=== PATIENT | male | born 1955 | race Caucasian/White ===

== ENCOUNTER 2021-03-11 15:07 | Emergency (ER) | payer MEDICARE, OTHER ==
[~2021-03-11] VITALS: Ht 182 cm; Wt 113.3 kg
[~2021-03-11 15:07] MED LIST: ASP325T PO
[2021-03-11 15:12] VITALS: BP 148/97
[2021-03-11 15:34] LABS: BASOPHILS % (AUTO) 0 % (0-10); EOSINOPHILS # (AUTO) 0.2 10^3/uL (0.0-0.3); EOSINOPHILS % (AUTO) 3 % (0-10); HEMATOCRIT 53 % (40-54); HEMOGLOBIN 17.6 g/dL (13.3-17.7); LYMPHOCYTES # (AUTO) 2.2 10^3/uL (1.0-4.0); LYMPHOCYTES % (AUTO) 33 % (12-44); MEAN CORPUSCULAR HEMOGLOBIN 33 pg (25-34); MEAN CORPUSCULAR HGB CONC 34 g/dL (32-36); MEAN CORPUSCULAR VOLUME 99 fL (80-99); MEAN PLATELET VOLUME 11.2 fL (9.0-12.2); MONOCYTES # (AUTO) 0.4 10^3/uL (0.0-1.0); MONOCYTES % (AUTO) 6 % (0-12); NEUTROPHILS # (AUTO) 3.9 10^3/uL (1.8-7.8); NEUTROPHILS % (AUTO) 58 % (42-75); PLATELET COUNT 166 10^3/uL (130-400); WHITE BLOOD COUNT 6.7 10^3/uL (4.3-11.0)
[2021-03-11 15:38] LABS: ALBUMIN 4.1 GM/DL (3.2-4.5); CHLORIDE 106 MMOL/L (98-107); POTASSIUM 4.2 MMOL/L (3.6-5.0); SODIUM 140 MMOL/L (135-145)
[2021-03-11 15:39] LABS: CALCIUM 8.7 MG/DL (8.5-10.1)
[2021-03-11 15:40] LABS: FIBRIN DEGRADATION PRODUCTS 0.29 UG/ML (0.00-0.49); GLUCOSE 157 MG/DL (70-105); PROTHROMBIN TIME PATIENT 13.6 SEC (12.2-14.7); TOTAL PROTEIN 7.4 GM/DL (6.4-8.2)
[2021-03-11 15:41] LABS: CARBON DIOXIDE 19 MMOL/L (21-32)
[2021-03-11 15:42] LABS: BILIRUBIN,TOTAL 0.4 MG/DL (0.1-1.0)
--- NOTE | 2021-03-11 15:43 | ED Psychosocial ---
General Chief Complaint: Substance Abuse Stated Complaint: STROKE Nursing Triage Note: PT PRESENTS TO ED VIA EMS FROM HOME WITH COMPLAINTS OF L LEG WEAKNESS X 3 DAYS AND DRINKING ETOH DAILY. PT REPORTS "I HAVE BEEN DRINKING ALL DAY." Source: patient, EMS Exam Limitations: no limitations History of Present Illness Date Seen by Provider: Mar 11, 2021 Time Seen by Provider: 15:10 Initial Comments This is 66-year-old male presents to the emergency room via EMS due to left- sided weakness and intoxication. It is unclear who activated EMS. Patient asserts that his left-sided weakness has been there since a stroke over 2 years ago. He ambulates with a cane. He does appear intoxicated but he is able to ambulate. He is alert and oriented and states he was brought here against his wishes and he wishes to leave immediately. He states that he is traveling and passing through the area. He is staying at a motel. Allergies and Home Medications Allergies Coded Allergies: Penicillins (Verified Allergy, Unknown, 10/17/13) morphine (Verified Allergy, Unknown, 10/17/13) Patient Home Medication List Home Medication List Reviewed: Yes Review of Systems Constitutional: see HPI EENTM: no symptoms reported Respiratory: no symptoms reported Cardiovascular: no symptoms reported Gastrointestinal: no symptoms reported Genitourinary: no symptoms reported Musculoskeletal: no symptoms reported Skin: no symptoms reported Psychiatric/Neurological: See HPI Past Ajtrajk-Zcrjtv-Klhcdy Hx Patient Social History Tobacco Use?: Yes Tobacco type used: Cigarettes Smoking Status: Current Everyday Smoker Substance use?: No Alcohol Use?: Yes Alcohol type: Other Alcohol Frequency: Daily Pt feels they are or have been: No Immunizations Up To Date Tetanus Booster (TDap): Less than 5yrs PED Vaccines UTD: No Past Medical History Surgeries: Yes Orthopedic Respiratory: Yes Asthma Cardiac: No Neurological: Yes Stroke Genitourinary: No Gastrointestinal: Yes Pancreatitis, Gall Bladder Disease Musculoskeletal: Yes Back Injury Endocrine: No HEENT: No Cancer: No Psychosocial: No Adverse Reaction/Blood Tranf: No Family Medical History History of - respiratory disease 03 FATHER (EMPHYSEMIA) No Pertinent Family Hx, GI Disease Physical Exam Vital Signs - First Documented 03/11/21 15:12 Temp 36.0 Pulse 98 Resp 18 B/P (MAP) 148/97 (114) Pulse Ox 95 Capillary Refill : Less Than 3 Seconds Height, Weight, BMI Height: 6'1.00" Weight: 211lbs. 0.5oz. 95.874943md; 34.00 BMI Method:Stated General Appearance: WD/WN, no apparent distress HEENT: PERRL/EOMI, normal ENT inspection Neck: normal inspection Respiratory: no respiratory distress, no accessory muscle use Cardiovascular: regular rate, rhythm, no edema Extremities: normal inspection Neurologic/Psychiatric: other (Moderate left-sided weakness both extremities. Intoxicated) Skin: normal color, warm/dry Progress/Results/Core Measures Results/Orders Lab Results Laboratory Tests Test 03/11/21 15:20 Range/Units White Blood Count 6.7 4.3-11.0 10^3/uL Red Blood Count 5.31 4.30-5.52 10^6/uL Hemoglobin 17.6 13.3-17.7 g/dL Hematocrit 53 40-54 % Mean Corpuscular Volume 99 80-99 fL Mean Corpuscular Hemoglobin 33 25-34 pg Mean Corpuscular Hemoglobin Concent 34 32-36 g/dL Red Cell Distribution Width 15.3 H 10.0-14.5 % Platelet Count 166 130-400 10^3/uL Mean Platelet Volume 11.2 9.0-12.2 fL Immature Granulocyte % (Auto) 0 % Neutrophils (%) (Auto) 58 42-75 % Lymphocytes (%) (Auto) 33 12-44 % Monocytes (%) (Auto) 6 0-12 % Eosinophils (%) (Auto) 3 0-10 % Basophils (%) (Auto) 0 0-10 % Neutrophils # (Auto) 3.9 1.8-7.8 10^3/uL Lymphocytes # (Auto) 2.2 1.0-4.0 10^3/uL Monocytes # (Auto) 0.4 0.0-1.0 10^3/uL Eosinophils # (Auto) 0.2 0.0-0.3 10^3/uL Basophils # (Auto) 0.0 0.0-0.1 10^3/uL Immature Granulocyte # (Auto) 0.0 0.0-0.1 10^3/uL Prothrombin Time 13.6 12.2-14.7 SEC INR Comment 1.0 0.8-1.4 Activated Partial Thromboplast Time 27 24-35 SEC D-Dimer 0.29 0.00-0.49 UG/ML Sodium Level 140 135-145 MMOL/L Potassium Level 4.2 3.6-5.0 MMOL/L Chloride Level 106 98-107 MMOL/L Carbon Dioxide Level 19 L 21-32 MMOL/L Anion Gap 15 H 5-14 MMOL/L Blood Urea Nitrogen 12 7-18 MG/DL Creatinine 0.81 0.60-1.30 MG/DL Estimat Glomerular Filtration Rate 96 BUN/Creatinine Ratio 15 Glucose Level 157 H 70-105 MG/DL Calcium Level 8.7 8.5-10.1 MG/DL Corrected Calcium 8.6 8.5-10.1 MG/DL Total Bilirubin 0.4 0.1-1.0 MG/DL Aspartate Amino Transf (AST/SGOT) 29 5-34 U/L Alanine Aminotransferase (ALT/SGPT) 32 0-55 U/L Alkaline Phosphatase 62 40-136 U/L Troponin I < 0.028 <0.028 NG/ML Total Protein 7.4 6.4-8.2 GM/DL Albumin 4.1 3.2-4.5 GM/DL Serum Alcohol 304 *H <10 MG/DL Vital Signs/I&O 03/11/21 15:12 Temp 36.0 Pulse 98 Resp 18 B/P (MAP) 148/97 (114) Pulse Ox 95 Blood Pressure Mean: 114 Progress Progress Note : Progress Note Patient refused imaging. He demanded to leave AGAINST MEDICAL ADVICE. When he could not find an immediate ride, he elected to walk. He did walk independently out of the emergency room. He asserts that he does not have any new acute symptoms does not want to be evaluated any further. Departure Impression Primary Impression: Alcohol abuse Additional Impressions: Left-sided weakness Left against medical advice Disposition: 07 AGAINST MEDICAL ADVICE Condition: Against Medical Advice Departure-Patient Inst. Referrals: TIANNA GRANADOS DO (PCP) Primary Care Physician Patient Instructions: ALCOHOL AND SUBSTANCE ABUSE SALLY SHEIKH MD Mar 11, 2021 15:42
[2021-03-11 15:44] LABS: ALKALINE PHOSPHATASE 62 U/L (40-136); CREATININE SERUM 0.81 MG/DL (0.60-1.30); GFR ESTIMATED 96
[2021-03-11 15:45] LABS: BUN/CREATININE RATIO 15
[2021-03-11 15:47] LABS: ALANINE AMINOTRANSFERASE 32 U/L (0-55)
== END 2021-03-11 15:40 | disposition left against medical advice (07) ==
LOC: EDUNIT# 15:07 → ER 15:09
DX: F10.129 Alcohol abuse with intoxication, unspecified (principal); R53.1 Weakness; J45.909 Unspecified asthma, uncomplicated; Z86.73 Personal history of transient ischemic attack (TIA), and cerebral infarction without residual deficits
CPT/HCPCS: 80053; 84484; 85025; 85379; 85610; 85730; 93041; 99283; G0480; 36415; 80320; 93005

== ENCOUNTER 2021-03-11 20:06 | Emergency (ER) | payer MEDICARE ==
[2021-03-11 20:12] VITALS: BP 168/89
--- NOTE | 2021-03-11 20:22 | ED General ---
General Chief Complaint: Trauma-Non Activation Stated Complaint: FELL Source of Information: Patient Exam Limitations: No Limitations (TITUS SNOWDEN APRN) History of Present Illness Date Seen by Provider: Mar 11, 2021 Time Seen by Provider: 20:20 Initial Comments To your by EMS with reports that he fell outside of [employer] store here in [place]. He was here earlier today and left shortly after arrival. He has been drinking quite a bit of [place] deluxe today. Timing/Duration: 1-2 Days Severity: Moderate Associated Systoms: Denies Symptoms (TITUS SNOWDEN APRN) Allergies and Home Medications Allergies Coded Allergies: Penicillins (Verified Allergy, Unknown, 10/17/13) morphine (Verified Allergy, Unknown, 10/17/13) Patient Home Medication List Home Medication List Reviewed: Yes (TITUS SNOWDEN APRN) Review of Systems Review of Systems Constitutional: see HPI EENTM: see HPI Respiratory: no symptoms reported Cardiovascular: no symptoms reported Genitourinary: no symptoms reported Musculoskeletal: no symptoms reported Skin: no symptoms reported Psychiatric/Neurological: No Symptoms Reported Hematologic/Lymphatic: No Symptoms Reported Immunological/Allergic: no symptoms reported (TITUS SNOWDEN APRN) Past Pvreisz-Shcbny-Hebedi Hx Immunizations Up To Date Tetanus Booster (TDap): Less than 5yrs PED Vaccines UTD: No (TITUS SNOWDEN APRN) Past Medical History Asthma Pancreatitis, Gall Bladder Disease Back Injury Adverse Reaction/Blood Tranf: No (TITUS SNOWDEN APRN) Family Medical History History of - respiratory disease 03 FATHER (EMPHYSEMIA) No Pertinent Family Hx, GI Disease (TITUS SNOWDEN APRN) Physical Exam Vital Signs Vital Signs - First Documented 03/11/21 20:12 Temp 37.0 Pulse 101 Resp 16 B/P (MAP) 168/89 (115) Pulse Ox 93 O2 Delivery Room Air (SALLY SHEIKH MD) Vital Signs Capillary Refill : (TITUS SNOWDEN APRN) Height, Weight, BMI Height: 6'1.00" Weight: 211lbs. 0.5oz. 95.483830of; 34.00 BMI Method:Stated General Appearance: No Apparent Distress, WD/WN, Other (Alert. States "I want to go home". States he lives with his sister here in [place]. 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".) Eyes: Bilateral Eye Normal Inspection, Bilateral Eye PERRL HEENT: PERRL/EOMI, TMs Normal, Other (abrasino to tip of nose) Neck: Full Range of Motion, Normal Inspection Respiratory: No Accessory Muscle Use, No Respiratory Distress Extremity: Normal Capillary Refill, Normal Inspection Neurologic/Psychiatric: Alert (TITUS SNOWDEN APRN) Progress/Results/Core Measures Suspected Sepsis SIRS Temperature: Pulse: Respiratory Rate: Blood Pressure / Mean: (TITUS SNOWDEN APRN) Results/Orders Vital Signs/I&O 03/11/21 20:12 Temp 37.0 Pulse 101 Resp 16 B/P (MAP) 168/89 (115) Pulse Ox 93 O2 Delivery Room Air 03/12/21 00:00 Intake Total 300 ml Balance 300 ml (SALLY SHEIKH MD) Vital Signs/I&O Capillary Refill : (TITUS SNOWDEN APRN) Departure Impression Primary Impression: Alcohol abuse Disposition: 01 HOME, SELF-CARE Condition: Stable Departure-Patient Inst. Decision time for Depature: 20:45 (TITUS SNOWDEN APRN) Referrals: TIANNA GRANADOS DO (PCP/Family) Primary Care Physician ATTENDING PHYSICIAN NOTE: I was physically present as attending physician in the emergency department during the care of this patient, but I was not directly involved in the decision making or delivery of care for this patient. (SALLY SHEIKH MD) TITUS SNOWDEN APRN Mar 11, 2021 20:22 SALLY SHEIKH MD Mar 12, 2021 11:54
--- NOTE | 2021-03-11 21:08 | Diagnostic Imaging Report ---
PROCEDURE: CT head, face and cervical spine without contrast. TECHNIQUE: Multiple contiguous axial images were obtained through the head, neck, and facial bones without the use of intravenous contrast. Sagittal and coronal reformations through the cervical spine and facial bones were also performed. Auto Exposure Controls were utilized during the CT exam to meet ALARA standards for radiation dose reduction. INDICATION: Fall with head and facial pain. COMPARISON: None available. FINDINGS: CT head: No intracranial hyperdense hemorrhage or space-occupying mass. No hydrocephalus or midline shift. Foley-white matter differentiation is preserved. Basilar cisterns are widely patent. No acute skull fracture. Mucosal thickening in bilateral frontal sinuses and anterior ethmoid air cells. Other paranasal sinuses are clear. Mastoid air cells are clear. CT face: No acute fracture of the nasal bones or osseous nasal septum. Age-indeterminate nondisplaced fracture of the anterior nasal spine. No fracture of the orbits. Zygomatic arches and maxillary sinus riojas are intact. The pterygoid plates are also intact. No fracture of the mandible. The temporomandibular joints are in normal alignment. No globe rupture or traumatic lens dislocation. CT cervical spine: No acute fracture or traumatic malalignment in the cervical spine. The upper thoracic spine is not well interrogated due to beam hardening artifact associated with scan through patient's shoulders. No retropharyngeal fluid collection. Airways widely patent. Thyroid is normal. No cervical lymphadenopathy. IMPRESSION: 1. No acute intracranial hemorrhage or skull fracture. 2. Age-indeterminate fracture in the anterior nasal spine. Otherwise, no fracture in the mid face or mandible. 3. No acute fracture or traumatic malalignment in the cervical spine. Dictated by: Dictated on workstation # [id number]
== END 2021-03-11 21:02 | disposition left against medical advice (07) ==
LOC: EDUNIT# 20:06 → ER 20:11
DX: S00.31XA Abrasion of nose, initial encounter (principal); F10.10 Alcohol abuse, uncomplicated; J45.909 Unspecified asthma, uncomplicated; W17.89XA Other fall from one level to another, initial encounter; Y92.512 Supermarket, store or market as the place of occurrence of the external cause
CPT/HCPCS: 70450; 70486; 72125

== ENCOUNTER 2021-03-13 08:01 | Inpatient (IN) | payer MEDICARE ==
[~2021-03-13] VITALS: Ht 188 cm; Wt 104.0 kg
[2021-03-13] MEDS ORDERED: ONDANSETRON 4 MG/2 ML (SDV) Z0FRAN ONE (08:14)
[2021-03-13] MEDS ORDERED: ONDANSETRON 4 MG/2 ML (SDV) Z0FRAN IVP ONE (08:15)
[2021-03-13 08:17] LABS: BASOPHILS % (AUTO) 0 % (0-10); EOSINOPHILS # (AUTO) 0.1 10^3/uL (0.0-0.3); EOSINOPHILS % (AUTO) 1 % (0-10); HEMATOCRIT 50 % (40-54); HEMOGLOBIN 16.9 g/dL (13.3-17.7); LYMPHOCYTES # (AUTO) 1.1 10^3/uL (1.0-4.0); LYMPHOCYTES % (AUTO) 15 % (12-44); MEAN CORPUSCULAR HEMOGLOBIN 33 pg (25-34); MEAN CORPUSCULAR HGB CONC 34 g/dL (32-36); MEAN CORPUSCULAR VOLUME 99 fL (80-99); MEAN PLATELET VOLUME 11.6 fL (9.0-12.2); MONOCYTES # (AUTO) 0.5 10^3/uL (0.0-1.0); MONOCYTES % (AUTO) 7 % (0-12); NEUTROPHILS # (AUTO) 5.4 10^3/uL (1.8-7.8); NEUTROPHILS % (AUTO) 76 % (42-75); PLATELET COUNT 147 10^3/uL (130-400); WHITE BLOOD COUNT 7.2 10^3/uL (4.3-11.0)
--- NOTE | 2021-03-13 08:26 | ED Fall/Injury ---
General Chief Complaint: Trauma-Non Activation Stated Complaint: FALL Nursing Triage Note: PT BROUGHT IN BY [facility] FROM [place] WITH COMPLAINT OF FALL AND CP. PT IS AN ALCOHOLIC AND DRANK THIS MORNING AT 3AM. FELL THIS MORNING AND HIT HEAD. Source: patient Exam Limitations: no limitations History of Present Illness Date Seen by Provider: Mar 13, 2021 Time Seen by Provider: 08:01 Initial Comments This 66-year-old man presents to the emergency room via [facility] after having a fall at a local hotel. He has been seen twice in this emergency room on the same day earlier this week for similar complaints. He has been intoxicated and not cooperative with care and evaluation on the prior visits. He appears intoxicated at this time as well. He arrives in c-collar. He has an abrasion over his nose and some apparent swelling in the right upper eyelid region. He also complains of chest pain that worsens with inspiration and palpation and abdominal pain with palpation. He is alert and answering questions. GCS is 13. He has chronic left-sided deficits of the arm and leg due to prior stroke. Patient states "I just want to " and wants to "get out of everyone's hair". He denies ana maria suicidal ideology or intent. Patient also states "I broke my right hand" when he fell. He does have swelling noted of the right hand. Allergies and Home Medications Allergies Coded Allergies: Penicillins (Verified Allergy, Unknown, 10/17/13) morphine (Verified Allergy, Unknown, 10/17/13) Patient Home Medication List Home Medication List Reviewed: Yes Aspirin (Aspirin EC) 81 Mg Tablet.dr, 81 MG PO DAILY, (Reported) Entered as Reported by: AURORA GUAMAN on 03/15/21 4459 Last Action: Reviewed Review of Systems Review of Systems Constitutional: see HPI Eyes: See HPI Ears, Nose, Mouth, Throat: see HPI Respiratory: see HPI Cardiovascular: see HPI Gastrointestinal: see HPI Genitourinary: no symptoms reported Musculoskeletal: see HPI Skin: see HPI Psychiatric/Neurological: See HPI Past Rqakwjz-Amqumt-Awnoao Hx Patient Social History Tobacco Use?: Yes Substance use?: No Alcohol Use?: Yes Alcohol type: Beer Alcohol Frequency: Daily Pt feels they are or have been: No Immunizations Up To Date Tetanus Booster (TDap): Less than 5yrs PED Vaccines UTD: No Past Medical History Surgeries: Yes Orthopedic (Numerous orthopedic injuries) Respiratory: Yes (History of traumatic pneumothorax) Asthma Cardiac: No Neurological: No Genitourinary: No Gastrointestinal: Yes Pancreatitis, Gall Bladder Disease Musculoskeletal: Yes Back Injury, Fractures (Numerous) Endocrine: No HEENT: No Cancer: No Psychosocial: Yes (Alcohol dependence) Adverse Reaction/Blood Tranf: No Family Medical History History of - respiratory disease 03 FATHER (EMPHYSEMIA) No Pertinent Family Hx, GI Disease Physical Exam Vital Signs Vital Signs - First Documented Capillary Refill : Less Than 3 Seconds Height, Weight, BMI Height: 6'1.00" Weight: 211lbs. 0.5oz. [id number]; 34.00 BMI Method:Stated General Appearance: WD/WN, mild distress HEENT: PERRL/EOMI, other (No dental injury. Abrasions over the nose and chin) Neck: normal inspection, other (C-collar in place) Cardiovascular: regular rate, rhythm, no edema, no murmur Respiratory: lungs clear, normal breath sounds, no respiratory distress, no accessory muscle use, other (Anterior chest tender to palpation over the sternum) Gastrointestinal: normal bowel sounds, soft; No distended; tenderness (Generalized) Extremities: no pedal edema, other (Generalized swelling and erythema of the right hand with tenderness) Neurologic/Psychiatric: alert, other (Alert and conversational but disoriented. Does not know age, month, or exact location. Chronic left deficits unchanged from prior.) Skin: normal color, warm/dry Lymphatic: other (See exam above) Fani Coma Score Best Eye Response: (3) Open to Voice Best Verbal Response: (4) Confused Conversation Best Motor Response: (6) Obeys Commands [place] Total: 13 Progress/Results/Core Measures Results/Orders Lab Results Laboratory Tests Test 03/13/21 08:06 Range/Units White Blood Count 7.2 4.3-11.0 10^3/uL Red Blood Count 5.07 4.30-5.52 10^6/uL Hemoglobin 16.9 13.3-17.7 g/dL Hematocrit 50 40-54 % Mean Corpuscular Volume 99 80-99 fL Mean Corpuscular Hemoglobin 33 25-34 pg Mean Corpuscular Hemoglobin Concent 34 32-36 g/dL Red Cell Distribution Width 15.3 H 10.0-14.5 % Platelet Count 147 130-400 10^3/uL Mean Platelet Volume 11.6 9.0-12.2 fL Immature Granulocyte % (Auto) 0 % Neutrophils (%) (Auto) 76 H 42-75 % Lymphocytes (%) (Auto) 15 12-44 % Monocytes (%) (Auto) 7 0-12 % Eosinophils (%) (Auto) 1 0-10 % Basophils (%) (Auto) 0 0-10 % Neutrophils # (Auto) 5.4 1.8-7.8 10^3/uL Lymphocytes # (Auto) 1.1 1.0-4.0 10^3/uL Monocytes # (Auto) 0.5 0.0-1.0 10^3/uL Eosinophils # (Auto) 0.1 0.0-0.3 10^3/uL Basophils # (Auto) 0.0 0.0-0.1 10^3/uL Immature Granulocyte # (Auto) 0.0 0.0-0.1 10^3/uL Prothrombin Time 13.2 12.2-14.7 SEC INR Comment 1.0 0.8-1.4 Activated Partial Thromboplast Time 25 24-35 SEC Sodium Level 138 135-145 MMOL/L Potassium Level 4.1 3.6-5.0 MMOL/L Chloride Level 101 98-107 MMOL/L Carbon Dioxide Level 16 L 21-32 MMOL/L Anion Gap 21 H 5-14 MMOL/L Blood Urea Nitrogen 11 7-18 MG/DL Creatinine 0.79 0.60-1.30 MG/DL Estimat Glomerular Filtration Rate 98 BUN/Creatinine Ratio 14 Glucose Level 100 70-105 MG/DL Calcium Level 8.4 L 8.5-10.1 MG/DL Corrected Calcium 8.3 L 8.5-10.1 MG/DL Magnesium Level 1.8 1.6-2.4 MG/DL Total Bilirubin 0.8 0.1-1.0 MG/DL Aspartate Amino Transf (AST/SGOT) 40 H 5-34 U/L Alanine Aminotransferase (ALT/SGPT) 30 0-55 U/L Alkaline Phosphatase 83 40-136 U/L Myoglobin 110.9 H 10.0-92.0 NG/ML Troponin I < 0.028 <0.028 NG/ML Total Protein 7.3 6.4-8.2 GM/DL Albumin 4.1 3.2-4.5 GM/DL Lipase 17 8-78 U/L Serum Alcohol 173 H <10 MG/DL My Orders Orders - SALLY SHEIKH MD Ct Head/Cervical Spine Wo (03/13/21 08:09) Ct Chest/Abdomen/Pelvis W (03/13/21 08:09) Alcohol (03/13/21 08:09) Cbc With Automated Diff (03/13/21 08:09) Comprehensive Metabolic Panel (03/13/21 08:09) Lipase (03/13/21 08:09) Ua Culture If Indicated (03/13/21 08:09) Magnesium (03/13/21 08:09) Chest 1 View, Ap/Pa Only (03/13/21 08:09) Ekg Tracing (03/13/21 08:09) Myoglobin Serum (03/13/21 08:09) Protime With Inr (03/13/21 08:09) Partial Thromboplastin Time (03/13/21 08:09) Monitor-Rhythm Ecg Trace Only (03/13/21 08:09) Ed Iv/Invasive Line Start (03/13/21 08:09) Troponin I (03/13/21 08:09) Ondansetron Injection (Zofran Injectio (03/13/21 08:15) Ondansetron Injection (Zofran Injectio (03/13/21 08:14) Hand, Right, 3 Views (03/13/21 08:26) Iohexol Injection (Omnipaque 350 Mg/Ml 1 (03/13/21 09:00) Received Contrast (Hold Metformin- Contr (03/13/21 09:00) Ns (Ivpb) (Sodium Chloride 0.9% Ivpb Bag (03/13/21 09:00) Promethazine Injection (Phenergan Injec (03/13/21 10:45) Lactated Ringers (Lr 1000 Ml Iv Solution (03/13/21 10:45) Lorazepam Injection (Ativan Injection) (03/13/21 11:15) Medications Given in ED Vital Signs/I&O 03/13/21 03/13/21 08:02 08:02 Pulse 96 94 Resp 13 16 B/P (MAP) 146/86 (106) 146/86 (106) Pulse Ox 96 96 O2 Delivery Room Air Room Air Blood Pressure Mean: 106 Progress Progress Note : Time: 11:35 Progress Note Patient seen and examined upon arrival. C-collar remained in place until CT scans were obtained. Patient had some brief seizure-like activity witnessed by CT techs in the CT room. They reported some generalized tremors with brief loss of responsiveness. Even with sternal rub he briefly did not respond and there was reportedly brief apnea. This episode lasted less than about a minute. CTs revealed no traumatic injuries. Patient had nausea on arrival that was treated with Zofran. After returning from CT he had refractory nausea and vomiting which was treated with Phenergan. Patient is having significant memory difficulties. Concussion is presumed. He also has started to tremor presumably from alcohol withdrawal. Ativan 1 mg was administered in the ER. Case was discussed with Dr. Lemons as trauma surgeon on-call and Dr. Olson. He will be admitted to the cardiac stepdown unit with the alcohol withdrawal protocol. Initial ECG Impression Date: Mar 13, 2021 Initial ECG Impression Time: 08:06 Initial ECG Rate: 94 Initial ECG Rhythm: Normal Sinus Initial ECG Intervals: Normal Initial ECG Impression: Normal Comment Normal sinus rhythm with no ST elevation or depression. No abnormal intervals or axis deviation. Diagnostic Imaging Diagonstic Imaging: Xray Plain Films/CT/US/NM/MRI: chest Comments NAME: AGUSTIN LOZA MED REC#: [id number] PT STATUS: REG ER : 1955 PHYSICIAN: SALLY SHEIKH MD ADMIT DATE: 03/13/21/ER Signed Date of Exam:03/13/21 CHEST 1 VIEW, AP/PA ONLY Portable chest INDICATION: Chest pain. Comparison made to a previous study from October 162013. FINDINGS: The diaphragms are flattened and there is some prominence of interstitial markings which could relate to underlying COPD. There is no focal infiltrate or consolidation. There is no effusion. There is no pneumothorax. Heart size appears appropriate without current failure. IMPRESSION: Flattened diaphragms suggesting air trapping. There is also some prominence of the interstitial markings. The findings suggest COPD. Correlation for any known smoking history appreciated. There are however no findings to suggest a new or acute superimposed cardiac pulmonary process. Dictated by: Dictated on workstation # [id number] Dict: 03/13/21916 Trans: 03/13/21 0950 [facility] [id number] Interpreted by: SWATHI FOREMAN MD Electronically signed by: SWATHI FOREMAN MD 03/13/2150 Diagonstic Imaging: CT Plain Films/CT/US/NM/MRI: chest, abdomen, pelvis Comments CT chest, abdomen, pelvis viewed by me and report reviewed. Discussed with the radiologist. See below: NAME: AGUSTIN LOZA [facility] REC#: [id number] PT STATUS: REG ER : 1955 PHYSICIAN: SALLY SHEIKH MD ADMIT DATE: 03/13/21/ER Signed Date of Exam:03/13/21 CT CHEST/ABDOMEN/PELVIS W PROCEDURE: CT chest, abdomen, and pelvis with contrast. TECHNIQUE: Multiple contiguous axial images were obtained through the chest, abdomen, and pelvis after the administration of intravenous contrast. Auto Exposure Controls were utilized during the CT exam to meet ALARA standards for radiation dose reduction. Date: March 13, 2021. Indication: 66-year-old male, fall. Chest and abdominal pain. Comparison: MRI abdomen October 22, 2013. CT abdomen pelvis October 20, 2013. Findings: There is a calcified 8 mm right lower lobe granuloma. There are mild dependent linear opacities in the right lower lobe most consistent with atelectasis. There is minimal dependent atelectasis in the left lower lobe. There is no additional focal airspace consolidation. There is no pneumothorax. There is no pleural effusion. The central airways are patent. There is no identified pulmonary embolus. The main pulmonary arteries normal in caliber. There are coronary artery calcifications. The heart is not enlarged. There is no pericardial effusion. There is no abnormally enlarged mediastinal, hilar, or axillary lymph node meeting CT size criteria for adenopathy. There is no mediastinal hematoma. There is no evidence of acute aortic injury. There are atherosclerotic calcifications. There is diffuse fatty infiltration of the liver. There is an enhancing lesion in the left lobe of the liver on delayed image 17 measuring 1.5 cm in size which is unchanged in size since prior MRI. There are additional liver lesion seen on prior MRI which are also best seen on the delayed images and are also unchanged in size. 2 additional lesions are present in the left lobe of liver measuring 3 cm in size in axial image 14 and on axial image 15 measuring 1.1 cm in size. These most likely reflect hemangiomas. There is no identified liver laceration or perihepatic fluid. The main, right, and left portal veins are patent. The gallbladder is unremarkable. There is no biliary ductal dilation. Unremarkable appearance of the pancreas. There is no evidence of an acute splenic injury. The spleen is normal in size. The adrenal glands are unremarkable. Unremarkable appearance of the renal parenchyma. The urinary collecting systems are not distended. There is no identified renal or ureteral stone. Urinary bladder is unremarkable. The intestinal tract is not distended. The appendix is unremarkable. There is no free intraperitoneal air. There is no drainable fluid collection. There is no free pelvic fluid. There is no identified abnormally enlarged lymph node in the abdomen or pelvis which meets CT size criteria for adenopathy. There are degenerative changes of the spine. There is an anchor in the right humeral head likely reflecting prior rotator cuff tendon repair. There is no identified acute fracture. There is a fat-containing lesion in the subcutaneous tissues superficial to the sternum most compatible with lipoma measuring 8.6 x 2.3 cm in size. Impression: 1. No identified acute abnormality at the level of the chest, abdomen, or pelvis. 2. Diffuse fatty infiltration of the liver. 3. Lipoma superficial to the sternum measuring 8.6 x 2.3 cm in axial dimension. 4. Enhancing lesions in the left lobe of the liver likely reflecting hemangiomas. Dictated by: Dictated on workstation # [id number] Dict: 03/13/21902 Trans: 03/13/21 1034 [facility] [id number] Interpreted by: MARTIR SOUTH MD Electronically signed by: MRATIR SOUTH MD 03/13/21 1034 Diagonstic Imaging: CT Plain Films/CT/US/NM/MRI: c-spine, head Comments NAME: AGUSTIN LOZA [facility] REC#: [id number] PT STATUS: REG ER : 1955 PHYSICIAN: SALLY SHEIKH MD ADMIT DATE: 03/13/21/ER Signed Date of Exam:03/13/21 CT HEAD/CERVICAL SPINE WO PROCEDURE: CT head and CT cervical spine without contrast. TECHNIQUE: Multiple contiguous axial images were obtained through the brain and cervical spine without the use of intravenous contrast. Sagittal and coronal reformations through the cervical spine were then performed. Auto Exposure Controls were utilized during the CT exam to meet ALARA standards for radiation dose reduction. INDICATION: Trauma. Fall. Head pain. Comparison is made with a prior study from March 112020. FINDINGS: The CT of the head demonstrates age-related global volume loss. There are no findings of acute intracranial hemorrhage. There is no evidence of an abnormal extra-axial collection. There is no intracranial mass effect or shift. There is no hydrocephalus. The basilar cisterns appear patent. The posterior fossa demonstrates no acute process. There are no findings of territorial loss of arellano-white differentiation or vasogenic edema. There is no acute calvarial fracture evident. The mastoids appear clear. The orbital contents are unremarkable. There is no fluid level evident within the paranasal sinuses. Patient's prior nasal spine fracture of the maxilla again noted. No new facial fracture is evident. Cervical spine demonstrates multilevel cervical degenerative disc disease and facet arthropathy. Alignment is unchanged from the prior exam with a degenerative anterolisthesis of C7 on T1. Craniocervical junction relationships are maintained. The facets are normally aligned. There is no facet joint or disc space widening. Background degenerative features are stable with most advanced disc space height loss at C6-C7. No acute cervical spine fracture demonstrated. Most advanced canal stenosis appears moderate at the C5-C6 and C6-C7 levels. There is also severe left C5-C6 and bilateral C6-C7 foraminal stenosis. The lung apices appear clear. The soft tissues of the neck demonstrate no acute process. There are atherosclerotic calcifications within the carotid arteries at the bifurcation. IMPRESSION: 1. Age-related global volume loss without evidence of intracranial hemorrhage or acute intracranial abnormality. 2. No calvarial or new facial fracture evident. There are no findings of a fluid level in the paranasal sinuses. 3. Stable degenerative features and alignment of the cervical spine. No findings of an acute cervical spine fracture demonstrated. Dictated by: Dictated on workstation # [id number] Dict: 03/13/2103 Trans: 03/13/21 0914 [facility] [id number] Interpreted by: SWATHI FOREMAN MD Electronically signed by: SWATHI FOREMAN MD 03/13/21 0914 Diagonstic Imaging: Xray Plain Films/CT/US/NM/MRI: hand Comments NAME: AGUSTIN LOZA [facility] REC#: [id number] PT STATUS: REG ER : 1955 PHYSICIAN: SALLY SHEIKH MD ADMIT DATE: 03/13/21/ER Signed Date of Exam:03/13/21 HAND, RIGHT, 3 VIEWS INDICATION: Hand pain. FINDINGS: There has been previous ORIF of the distal right ulna. Alignment of the hand and wrist appear appropriate. There are no findings of an acute fracture. There is no suspicious marrow replacing lesion. There are arthritic changes at the radiocarpal joint and more mild osteoarthritic changes demonstrated throughout the metacarpal phalangeal joints and interphalangeal joints. IMPRESSION: 1. Right hand and wrist arthritic changes without acute fracture or malalignment. 2. Previous ORIF of the right ulna. Dictated by: Dictated on workstation # [id number] Dict: 03/13/21917 Trans: 03/13/21 0935 [facility] [id number] Interpreted by: SWATHI FOREMAN MD Electronically signed by: SWATHI FOREMAN MD 03/13/21 0935 Departure Communication (Admissions) Time/Spoke to Admitting Phy: 11:20 Dr. Olson Time/Spoke to Consulting Phy: 11:15 Dr. Lemons Impression Primary Impression: Concussion Qualified Codes: S06.0X1A - Concussion with loss of consciousness of 30 minutes or less, initial encounter Additional Impressions: Altered mental status Qualified Codes: R41.82 - Altered mental status, unspecified Alcohol withdrawal Qualified Codes: F10.239 - Alcohol dependence with withdrawal, unspecified Fall on same level Qualified Codes: W18.30XA - Fall on same level, unspecified, initial encount er Contusion of right hand Qualified Codes: S60.221A - Contusion of right hand, initial encounter Observed seizure-like activity Disposition: ADMITTED INPATIENT Condition: Improved Admissions Decision to Admit Reason: Admit from ER (Trauma) Decision to Admit/Date: Mar 13, 2021 Time/Decision to Admit Time: 11:00 Departure-Patient Inst. Referrals: TIANNA GRANADOS DO (PCP/Family) Primary Care Physician SALLY SHEIKH MD Mar 13, 2021 08:26
[2021-03-13 08:31] LABS: ALBUMIN 4.1 GM/DL (3.2-4.5); PROTHROMBIN TIME PATIENT 13.2 SEC (12.2-14.7)
[2021-03-13 08:32] LABS: CHLORIDE 101 MMOL/L (98-107); POTASSIUM 4.1 MMOL/L (3.6-5.0); SODIUM 138 MMOL/L (135-145)
[2021-03-13 08:33] LABS: CALCIUM 8.4 MG/DL (8.5-10.1)
[2021-03-13 08:34] LABS: GLUCOSE 100 MG/DL (70-105); TOTAL PROTEIN 7.3 GM/DL (6.4-8.2)
[2021-03-13 08:35] LABS: CARBON DIOXIDE 16 MMOL/L (21-32)
[2021-03-13 08:36] LABS: BILIRUBIN,TOTAL 0.8 MG/DL (0.1-1.0)
[2021-03-13 08:37] LABS: ALKALINE PHOSPHATASE 83 U/L (40-136)
[2021-03-13 08:38] LABS: CREATININE SERUM 0.79 MG/DL (0.60-1.30); GFR ESTIMATED 98
[2021-03-13 08:39] LABS: BUN/CREATININE RATIO 14
[2021-03-13 08:40] LABS: ALANINE AMINOTRANSFERASE 30 U/L (0-55)
[2021-03-13 08:41] LABS: LIPASE 17 U/L (8-78); MAGNESIUM 1.8 MG/DL (1.6-2.4)
[2021-03-13] MEDS ORDERED: IOHEXOL 350 MG/ML 100 ML (OMNIPAQUE 350) VIAL IV ONE (09:00)
[2021-03-13] MEDS ORDERED: HOLD METFORMIN - RECEIVED CONTRAST 20 ML VIAL IV SCH (09:00)
[2021-03-13] MEDS ORDERED: NS 100 ML (IVPB) BAG IV ONE (09:00)
--- NOTE | 2021-03-13 09:12 | Diagnostic Imaging Report ---
PROCEDURE: CT head and CT cervical spine without contrast. TECHNIQUE: Multiple contiguous axial images were obtained through the brain and cervical spine without the use of intravenous contrast. Sagittal and coronal reformations through the cervical spine were then performed. Auto Exposure Controls were utilized during the CT exam to meet ALARA standards for radiation dose reduction. INDICATION: Trauma. Fall. Head pain. Comparison is made with a prior study from March 112020. FINDINGS: The CT of the head demonstrates age-related global volume loss. There are no findings of acute intracranial hemorrhage. There is no evidence of an abnormal extra-axial collection. There is no intracranial mass effect or shift. There is no hydrocephalus. The basilar cisterns appear patent. The posterior fossa demonstrates no acute process. There are no findings of territorial loss of arellano-white differentiation or vasogenic edema. There is no acute calvarial fracture evident. The mastoids appear clear. The orbital contents are unremarkable. There is no fluid level evident within the paranasal sinuses. Patient's prior nasal spine fracture of the maxilla again noted. No new facial fracture is evident. Cervical spine demonstrates multilevel cervical degenerative disc disease and facet arthropathy. Alignment is unchanged from the prior exam with a degenerative anterolisthesis of C7 on T1. Craniocervical junction relationships are maintained. The facets are normally aligned. There is no facet joint or disc space widening. Background degenerative features are stable with most advanced disc space height loss at C6-C7. No acute cervical spine fracture demonstrated. Most advanced canal stenosis appears moderate at the C5-C6 and C6-C7 levels. There is also severe left C5-C6 and bilateral C6-C7 foraminal stenosis. The lung apices appear clear. The soft tissues of the neck demonstrate no acute process. There are atherosclerotic calcifications within the carotid arteries at the bifurcation. IMPRESSION: 1. Age-related global volume loss without evidence of intracranial hemorrhage or acute intracranial abnormality. 2. No calvarial or new facial fracture evident. There are no findings of a fluid level in the paranasal sinuses. 3. Stable degenerative features and alignment of the cervical spine. No findings of an acute cervical spine fracture demonstrated. Dictated by: Dictated on workstation # [id number]
--- NOTE | 2021-03-13 09:14 | Diagnostic Imaging Report ---
PROCEDURE: CT chest, abdomen, and pelvis with contrast. TECHNIQUE: Multiple contiguous axial images were obtained through the chest, abdomen, and pelvis after the administration of intravenous contrast. Auto Exposure Controls were utilized during the CT exam to meet ALARA standards for radiation dose reduction. Date: March 13, 2021. Indication: 66-year-old male, fall. Chest and abdominal pain. Comparison: MRI abdomen October 22, 2013. CT abdomen pelvis October 20, 2013. Findings: There is a calcified 8 mm right lower lobe granuloma. There are mild dependent linear opacities in the right lower lobe most consistent with atelectasis. There is minimal dependent atelectasis in the left lower lobe. There is no additional focal airspace consolidation. There is no pneumothorax. There is no pleural effusion. The central airways are patent. There is no identified pulmonary embolus. The main pulmonary arteries normal in caliber. There are coronary artery calcifications. The heart is not enlarged. There is no pericardial effusion. There is no abnormally enlarged mediastinal, hilar, or axillary lymph node meeting CT size criteria for adenopathy. There is no mediastinal hematoma. There is no evidence of acute aortic injury. There are atherosclerotic calcifications. There is diffuse fatty infiltration of the liver. There is an enhancing lesion in the left lobe of the liver on delayed image 17 measuring 1.5 cm in size which is unchanged in size since prior MRI. There are additional liver lesion seen on prior MRI which are also best seen on the delayed images and are also unchanged in size. 2 additional lesions are present in the left lobe of liver measuring 3 cm in size in axial image 14 and on axial image 15 measuring 1.1 cm in size. These most likely reflect hemangiomas. There is no identified liver laceration or perihepatic fluid. The main, right, and left portal veins are patent. The gallbladder is unremarkable. There is no biliary ductal dilation. Unremarkable appearance of the pancreas. There is no evidence of an acute splenic injury. The spleen is normal in size. The adrenal glands are unremarkable. Unremarkable appearance of the renal parenchyma. The urinary collecting systems are not distended. There is no identified renal or ureteral stone. Urinary bladder is unremarkable. The intestinal tract is not distended. The appendix is unremarkable. There is no free intraperitoneal air. There is no drainable fluid collection. There is no free pelvic fluid. There is no identified abnormally enlarged lymph node in the abdomen or pelvis which meets CT size criteria for adenopathy. There are degenerative changes of the spine. There is an anchor in the right humeral head likely reflecting prior rotator cuff tendon repair. There is no identified acute fracture. There is a fat-containing lesion in the subcutaneous tissues superficial to the sternum most compatible with lipoma measuring 8.6 x 2.3 cm in size. Impression: 1. No identified acute abnormality at the level of the chest, abdomen, or pelvis. 2. Diffuse fatty infiltration of the liver. 3. Lipoma superficial to the sternum measuring 8.6 x 2.3 cm in axial dimension. 4. Enhancing lesions in the left lobe of the liver likely reflecting hemangiomas. Dictated by: Dictated on workstation # [id number]
--- NOTE | 2021-03-13 09:34 | Diagnostic Imaging Report ---
INDICATION: Hand pain. FINDINGS: There has been previous ORIF of the distal right ulna. Alignment of the hand and wrist appear appropriate. There are no findings of an acute fracture. There is no suspicious marrow replacing lesion. There are arthritic changes at the radiocarpal joint and more mild osteoarthritic changes demonstrated throughout the metacarpal phalangeal joints and interphalangeal joints. IMPRESSION: 1. Right hand and wrist arthritic changes without acute fracture or malalignment. 2. Previous ORIF of the right ulna. Dictated by: Dictated on workstation # [id number]
--- NOTE | 2021-03-13 09:38 | Diagnostic Imaging Report ---
Portable chest INDICATION: Chest pain. Comparison made to a previous study from October 162013. FINDINGS: The diaphragms are flattened and there is some prominence of interstitial markings which could relate to underlying COPD. There is no focal infiltrate or consolidation. There is no effusion. There is no pneumothorax. Heart size appears appropriate without current failure. IMPRESSION: Flattened diaphragms suggesting air trapping. There is also some prominence of the interstitial markings. The findings suggest COPD. Correlation for any known smoking history appreciated. There are however no findings to suggest a new or acute superimposed cardiac pulmonary process. Dictated by: Dictated on workstation # [id number]
[2021-03-13] MEDS ORDERED: PROMETHAZINE INJ 25 MG/ML (PHENERGAN) AMP IVP ONE (10:45)
[2021-03-13] MEDS ORDERED: LACTATED RINGERS 1,000 ML IV ONE (10:45)
[2021-03-13] MEDS ORDERED: LORazepam INJ 2 MG/ML (ATIVAN) VIAL IVP ONE (11:15)
[2021-03-13] MEDS ORDERED: LORazepam INJ 2 MG/ML (ATIVAN) VIAL IM/IV PRN (15:00)
[2021-03-13] MEDS ORDERED: ANTACID SUSP 30 ML UDC (MYLANTA) PO PRN (15:00)
[2021-03-13] MEDS: THIAMINE INJECTION 100 MG, FOLIC ACID INJECTION 1 MG, VITAMIN MULTI INJECTION 10 ML, MA... IV SCH ×5 (15:19)
--- NOTE | 2021-03-13 15:34 | Tele-ICU Progress Note ---
Progress Note He is a 66-year-old male with past medical history of alcohol abuse apparently drank alcohol about 3 AM today and subsequently fell and hit his head came to the hospital with the complaint of headache. His alcohol level is found to be 173. He is evaluated with the CT of the head neck chest abdomen and pelvis which are negative for any acute abnormalities. Currently admitted to the intensive care unit with [facility] protocol. He is likely to undergo alcohol withdrawal syndrome. . Telemetry ICU is not consulted. I have made a video visit and discussed with the [employer] and at this time she does not need any request from the telemetry ICU physician but in case she needs she will reach out to me. Focused Exam Height, Weight, BMI Height: 6'1.00" Weight: 211lbs. 0.5oz. [id number]; 29.34 BMI Method:Stated [employer] [place] MD Mar 13, 2021 15:34
[2021-03-13] MEDS: LORazepam 1 MG (ATIVAN) TAB PO PRN ×3 (15:50→18:52)
[2021-03-13] MEDS: LACTATED RINGERS 1,000 ML IV SCH ×2 (15:51→21:23)
[2021-03-13] MEDS: IBUPROFEN 600 MG (MOTRIN) TAB PO PRN (18:05)
[2021-03-13] MEDS: ONDANSETRON 4 MG/2 ML (SDV) Z0FRAN IV PRN (18:58)
[2021-03-13] MEDS ORDERED: ACETAMINOPHEN 500 MG TAB (TYLENOL) ONE (21:20)
--- NOTE | 2021-03-14 01:26 | CONSULTATION REPORT ---
DATE OF SERVICE: 03/13/2021 ATTENDING PRIMARY CARE PHYSICIAN: Leroy Avendano DO HISTORY OF PRESENT ILLNESS: The patient is a 66-year-old male with history of alcoholism. He has been staying at a local hotel. He was brought to the Emergency Department by EMS after a same level fall. He has been seen twice in the emergency room on the same day earlier this week for similar complaints. Every time he has been intoxicated and uncooperative for evaluation. He again is intoxicated. He states that everything hurts; however, no elicited pain upon any type of palpation. He does have a left sided deficits due to prior stroke. His Fani coma scale is 13. CT scan of the head, neck, chest, abdomen and pelvis were performed, which did not show any deficits. During the CT scan, he did have movements of his upper extremity, which may have indicated some level of secondary effects from alcoholism; however, seizure cannot be ruled out. A CT scan of the head did not show any abnormalities. He was admitted for detoxification. PAST MEDICAL HISTORY: Alcoholism, degenerative joint disease, history of pancreatitis, asthma. PAST SURGICAL HISTORY: Orthopedic injuries that did not require surgery, cholecystectomy. ALLERGIES: PENICILLIN AND MORPHINE. MEDICATIONS: None. SOCIAL HISTORY: Positive for alcoholism. Positive for smoke. FAMILY HISTORY: Noncontributory. VITAL SIGNS: Stable. Blood pressure 120/71, pulse 75, respirations 19. Pulse ox 90% on 2 liters nasal cannula. REVIEW OF SYSTEMS: Well-nourished male, currently in no acute distress. He is not experiencing any shortness of breath and difficulty breathing. No chest pain, palpitations, diaphoresis. No nausea, vomiting, no diarrhea or constipation. No fever, chills, no recent inadvertent weight loss. All other review of systems negative. No visual changes. No focal deficits. PHYSICAL EXAMINATION: CHEST: Few scattered rales bilaterally. HEART: Regular, no murmurs. EXTREMITIES: No lower extremity edema, negative Homans sign. HEENT: No scleral icterus. NECK: No cervical lymphadenopathy. ABDOMEN: Soft, nontender, nondistended. SKIN: Warm, dry. NEUROLOGIC: Awake, alert, does answer most questions appropriately, moves all four extremities purposefully upon command. LABORATORY DATA: WBC 7.2, hemoglobin 6.9, hematocrit 50, platelets 147. BUN 11, creatinine 0.79. Alcohol 173. ASSESSMENT AND PLAN: A 66-year-old male with same level fall with a possible concussion. However, most likely due to alcohol intoxication. He will be admitted for detoxification with IV fluids, benzodiazepines as needed and monitoring for delirium tremens. As of now, there does not appear to be any injuries related to his fall. Job ID: [id number] DocumentID: [id number] Dictated Date: 03/13/2021 22:59:03 [place] Date: 03/14/2021 01:26:22 Dictated By: JENSEN HARPER MD
[2021-03-14] MEDS: IBUPROFEN 600 MG (MOTRIN) TAB PO PRN (04:44)
[2021-03-14] MEDS: LORazepam 1 MG (ATIVAN) TAB PO PRN ×2 (04:44→10:43)
[2021-03-14] MEDS: LACTATED RINGERS 1,000 ML IV SCH ×3 (04:49→23:10)
[2021-03-14] MEDS: ONDANSETRON 4 MG/2 ML (SDV) Z0FRAN IV PRN ×2 (07:21→19:35)
[2021-03-14] MEDS: ACETAMINOPHEN 500 MG TAB (TYLENOL) PO PRN (07:21)
[2021-03-14 07:44] LABS: POTASSIUM 3.8 MMOL/L (3.6-5.0)
[2021-03-14 07:46] LABS: CALCIUM 8.4 MG/DL (8.5-10.1)
[2021-03-14 07:50] LABS: CREATININE SERUM 0.8 MG/DL (0.60-1.30); PHOSPHORUS 2.2 MG/DL (2.3-4.7)
[2021-03-14 07:53] LABS: MAGNESIUM 2.1 MG/DL (1.6-2.4)
--- NOTE | 2021-03-14 09:15 | History & Physical-Hospitalist ---
History of Present Illness HPI/Chief Complaint Patient is 66-year-old male with a past medical history of alcohol abuse, stroke, and on disability for "my body is broken" who presented to the emergency department due to a fall. He is a very poor historian and states he is having memory issues and doesn't recall all of the events that led him to the hospital. He is very vague in his details as well. Apparently he was in the emergency room multiple times this week due to alcohol intoxication and falls. He left AGAINST MEDICAL ADVICE at least once. He believes to think that he was here and was found to have a hip fracture that was missed. Reviewing records that does not appear to be the case. He complains of a pounding headache. He had a CT of his head in the emergency room that was negative for any acute findings. While in CT there was concern for seizure-like activity. Patient states he remembers this entire event but is convinced it was a seizure. He denies any history of seizures. He does have longstanding alcohol use but has gone days and possibly even weeks without drinking and has never had withdrawal symptoms per his report. He states his last drink was yesterday at 3:00 in the morning. His alcohol level at 8 AM yesterday morning was 173. He complains of nausea and vomiting. Despite this he would like to advance his diet. We discussed how this would not make sense and he agrees to continue on clears for now. He states he would like to stay in the hospital for a few days and get everything figured out. I informed him that that is not the goal of being in the hospital but that we'll work on getting his gait steadier and hopefully through withdrawal safely. I believe he is currently homeless as he previously lived with his sister but stated he left as his cziodki-ab-hzi and he "did not see eye to eye." He could not tell me an address of where he lives. We discussed plan to transfer out of the ICU if he does well. He did not like this plan and would like to stay in the ICU despite not needing any ICU level of care. I informed him that this was not possible either and that he will go to the bed that is most appropriate for his medical status. He wants to know why his memory is foggy. We discussed that he has had multiple falls and likely has a concussion along with long-term alcohol use being the most likely etiology of his symptoms. He disagrees. He states he does drink like this his whole life and never had problems. He is unable to quantify how much he drinks daily for me. Source: patient Exam Limitations: clinical condition Date Seen 03/14/21 Time Seen by a Provider: 09:09 Attending Physician Celina Olson MD PCP Leroy Avendano DO Referring Physician Date of Admission Mar 13, 2021 at 11:25 Home Medications & Allergies Home Medications Reviewed patient Home Medication Reconciliation performed by pharmacy medication reconciliations light technician and/or nursing. Patients Allergies have been reviewed. Allergies Allergies Coded Allergies Penicillins (Verified Allergy, Unknown, 10/17/13) morphine (Verified Allergy, Unknown, 10/17/13) Past Ytuksxa-Fjscgi-Qljnuz Hx Patient Social History Employed/Student: unemployed (on disability6) Tobacco Use?: Yes Tobacco type used: Cigarettes Smoking Status: Current Everyday Smoker Smokeless type used: Chew Smokeless Tobacco Frequency: Current Everyday User Use of E-Cig and/or Vaping dev: No Substance use?: No Alcohol Use?: Yes Alcohol type: Hard Liquor Additional alcohol type: WHISKEY Alcohol Frequency: Daily Additional Alcohol Comments: 3-4 LARGE DRINKS PER DAY Pt feels they are or have been: No Immunizations Up To Date First/Initial COVID19 Vaccinat: 02/04/21 Second COVID19 Vaccination Loc: 02/18/21 Tetanus Booster (TDap): Unknown Hepatitis A: Yes Hepatitis B: Yes PED Vaccines UTD: No Date of Pneumonia Vaccine: Jan 06, 1971 Current Status Advance Directives: No Communicates: Verbally Primary Language: Chinese Preferred Spoken Language: Chinese Is interpretation needed?: No Implanted or Applied Medical D: Orthopedic hardware Past Medical History Surgeries: Orthopedic (Numerous orthopedic injuries) Asthma Pancreatitis, Gall Bladder Disease Back Injury, Fractures (Numerous) Adverse Reaction/Blood Tranf: No Family Medical History Reviewed Nursing Family Hx History of - respiratory disease 03 FATHER (EMPHYSEMIA) GI Disease Review of Systems Constitutional: see HPI, malaise, weakness EENTM: no symptoms reported Respiratory: cough Cardiovascular: no symptoms reported Gastrointestinal: see HPI Genitourinary: no symptoms reported Musculoskeletal: back pain, joint pain Skin: other (bruises,) Psychiatric/Neurological: Depressed, Headache; Denies Numbness, Denies Paresthesia; Pre-Existing Deficit, Seizure; Denies Tingling Physical Exam Physical Exam Vital Signs Vital Signs - First Documented Capillary Refill : Less Than 3 Seconds Height, Weight, BMI Height: 6'1.00" Weight: 211lbs. 0.5oz. 95.381875dh; 29.34 BMI Method:Stated General Appearance: No Apparent Distress, Chronically ill HEENT: PERRL/EOMI, Moist Mucous Membranes; No Scleral Icterus (L), No Scleral Icterus (R) Neck: Normal Inspection, Supple Respiratory: Chest Non Tender, Lungs Clear, No Accessory Muscle Use, No Respiratory Distress Cardiovascular: Regular Rate, Rhythm, No JVD, No Murmur Gastrointestinal: Normal Bowel Sounds, Non Tender, Soft Extremity: Normal Capillary Refill, No Calf Tenderness, No Pedal Edema Neurologic/Psychiatric: Alert, Oriented x3 (but poor recall and confusion to timing of events) Skin: Normal Color, Warm/Dry, Other (multiples abrasions and ecchymosis on legs, face, and arms consistent with falls) Results Results/Procedures Labs Laboratory Tests 03/14/21 07:24 Patient resulted labs reviewed. Imaging: Reviewed Imaging Report Imaging [facility] [place], [place] NAME: AGUSTIN LOZA [facility] REC#: [id number] PT STATUS: REG ER : 1955 PHYSICIAN: SALLY SHEIKH MD ADMIT DATE: 03/13/21/ER Signed Date of Exam:03/13/21 CHEST 1 VIEW, AP/PA ONLY Portable chest INDICATION: Chest pain. Comparison made to a previous study from October 162013. FINDINGS: The diaphragms are flattened and there is some prominence of interstitial markings which could relate to underlying COPD. There is no focal infiltrate or consolidation. There is no effusion. There is no pneumothorax. Heart size appears appropriate without current failure. IMPRESSION: Flattened diaphragms suggesting air trapping. There is also some prominence of the interstitial markings. The findings suggest COPD. Correlation for any known smoking history appreciated. There are however no findings to suggest a new or acute superimposed cardiac pulmonary process. Dictated by: Dictated on workstation # [id number] Dict: 03/13/21916 Trans: 03/13/[address] [facility] [id number] Interpreted by: SWATHI FOREMAN MD Electronically signed by: SWATHI FOREMAN MD 03/13/21 0950 [facility] [place], [place] NAME: AGUSTIN LOZA [facility] REC#: [id number] PT STATUS: REG ER : 1955 PHYSICIAN: SALLY SHEIKH MD ADMIT DATE: 03/13/21/ER Signed Date of Exam:03/13/21 CT CHEST/ABDOMEN/PELVIS W PROCEDURE: CT chest, abdomen, and pelvis with contrast. TECHNIQUE: Multiple contiguous axial images were obtained through the chest, abdomen, and pelvis after the administration of intravenous contrast. Auto Exposure Controls were utilized during the CT exam to meet ALARA standards for radiation dose reduction. Date: March 13, 2021. Indication: 66-year-old male, fall. Chest and abdominal pain. Comparison: MRI abdomen October 22, 2013. CT abdomen pelvis October 20, 2013. Findings: There is a calcified 8 mm right lower lobe granuloma. There are mild dependent linear opacities in the right lower lobe most consistent with atelectasis. There is minimal dependent atelectasis in the left lower lobe. There is no additional focal airspace consolidation. There is no pneumothorax. There is no pleural effusion. The central airways are patent. There is no identified pulmonary embolus. The main pulmonary arteries normal in caliber. There are coronary artery calcifications. The heart is not enlarged. There is no pericardial effusion. There is no abnormally enlarged mediastinal, hilar, or axillary lymph node meeting CT size criteria for adenopathy. There is no mediastinal hematoma. There is no evidence of acute aortic injury. There are atherosclerotic calcifications. There is diffuse fatty infiltration of the liver. There is an enhancing lesion in the left lobe of the liver on delayed image 17 measuring 1.5 cm in size which is unchanged in size since prior MRI. There are additional liver lesion seen on prior MRI which are also best seen on the delayed images and are also unchanged in size. 2 additional lesions are present in the left lobe of liver measuring 3 cm in size in axial image 14 and on axial image 15 measuring 1.1 cm in size. These most likely reflect hemangiomas. There is no identified liver laceration or perihepatic fluid. The main, right, and left portal veins are patent. The gallbladder is unremarkable. There is no biliary ductal dilation. Unremarkable appearance of the pancreas. There is no evidence of an acute splenic injury. The spleen is normal in size. The adrenal glands are unremarkable. Unremarkable appearance of the renal parenchyma. The urinary collecting systems are not distended. There is no identified renal or ureteral stone. Urinary bladder is unremarkable. The intestinal tract is not distended. The appendix is unremarkable. There is no free intraperitoneal air. There is no drainable fluid collection. There is no free pelvic fluid. There is no identified abnormally enlarged lymph node in the abdomen or pelvis which meets CT size criteria for adenopathy. There are degenerative changes of the spine. There is an anchor in the right humeral head likely reflecting prior rotator cuff tendon repair. There is no identified acute fracture. There is a fat-containing lesion in the subcutaneous tissues superficial to the sternum most compatible with lipoma measuring 8.6 x 2.3 cm in size. Impression: 1. No identified acute abnormality at the level of the chest, abdomen, or pelvis. 2. Diffuse fatty infiltration of the liver. 3. Lipoma superficial to the sternum measuring 8.6 x 2.3 cm in axial dimension. 4. Enhancing lesions in the left lobe of the liver likely reflecting hemangiomas. Dictated by: Dictated on workstation # [id number] Dict: 03/13/21902 Trans: 03/13/[address] [facility] [id number] Interpreted by: MARTIR SOUTH MD Electronically signed by: MARTIR SOUTH MD 03/13/21 1034 [facility] [place], [place] NAME: AGUSTIN LOZA [facility] REC#: [id number] PT STATUS: REG ER : 1955 PHYSICIAN: SALLY SHEIKH MD ADMIT DATE: 03/13/21/ER Signed Date of Exam:03/13/21 CT HEAD/CERVICAL SPINE WO PROCEDURE: CT head and CT cervical spine without contrast. TECHNIQUE: Multiple contiguous axial images were obtained through the brain and cervical spine without the use of intravenous contrast. Sagittal and coronal reformations through the cervical spine were then performed. Auto Exposure Controls were utilized during the CT exam to meet ALARA standards for radiation dose reduction. INDICATION: Trauma. Fall. Head pain. Comparison is made with a prior study from March 112020. FINDINGS: The CT of the head demonstrates age-related global volume loss. There are no findings of acute intracranial hemorrhage. There is no evidence of an abnormal extra-axial collection. There is no intracranial mass effect or shift. There is no hydrocephalus. The basilar cisterns appear patent. The posterior fossa demonstrates no acute process. There are no findings of territorial loss of arellano-white differentiation or vasogenic edema. There is no acute calvarial fracture evident. The mastoids appear clear. The orbital contents are unremarkable. There is no fluid level evident within the paranasal sinuses. Patient's prior nasal spine fracture of the maxilla again noted. No new facial fracture is evident. Cervical spine demonstrates multilevel cervical degenerative disc disease and facet arthropathy. Alignment is unchanged from the prior exam with a degenerative anterolisthesis of C7 on T1. Craniocervical junction relationships are maintained. The facets are normally aligned. There is no facet joint or disc space widening. Background degenerative features are stable with most advanced disc space height loss at C6-C7. No acute cervical spine fracture demonstrated. Most advanced canal stenosis appears moderate at the C5-C6 and C6-C7 levels. There is also severe left C5-C6 and bilateral C6-C7 foraminal stenosis. The lung apices appear clear. The soft tissues of the neck demonstrate no acute process. There are atherosclerotic calcifications within the carotid arteries at the bifurcation. IMPRESSION: 1. Age-related global volume loss without evidence of intracranial hemorrhage or acute intracranial abnormality. 2. No calvarial or new facial fracture evident. There are no findings of a fluid level in the paranasal sinuses. 3. Stable degenerative features and alignment of the cervical spine. No findings of an acute cervical spine fracture demonstrated. Dictated by: Dictated on workstation # [id number] Dict: 03/13/21902 Trans: 03/13/[address] [facility] [id number] Interpreted by: SWATHI FOREMAN MD Electronically signed by: SWATHI FOREMAN MD 03/13/21913 [facility] [place], [place] NAME: AGUSTIN LOZA [facility] REC#: [id number] PT STATUS: REG ER : 1955 PHYSICIAN: SALLY SHEIKH MD ADMIT DATE: 03/13/21/ER Signed Date of Exam:03/13/21 HAND, RIGHT, 3 VIEWS INDICATION: Hand pain. FINDINGS: There has been previous ORIF of the distal right ulna. Alignment of the hand and wrist appear appropriate. There are no findings of an acute fracture. There is no suspicious marrow replacing lesion. There are arthritic changes at the radiocarpal joint and more mild osteoarthritic changes demonstrated throughout the metacarpal phalangeal joints and interphalangeal joints. IMPRESSION: 1. Right hand and wrist arthritic changes without acute fracture or malalignment. 2. Previous ORIF of the right ulna. Dictated by: Dictated on workstation # [id number] Dict: 03/13/21917 Trans: 03/13/21 0935 [facility] [id number] Interpreted by: SWATHI FOREMAN MD Electronically signed by: SWATHI FOREMAN MD 03/13/21 0935 Assessment/Plan Admission Diagnosis Alcohol withdrawal Admission Status: Observation Reason for Inpatient Admission: see below Assessment and Plan Alcohol Withdrawal Possible seizure Falls concussion Continue on CIWA protocol Last drink yesterday morning Denies history of withdrawals Maintain in ICU under seizure precautions PT/OT Diagnosis/Problems Diagnosis/Problems (1) Contusion of right hand Status: Acute Qualifiers: Encounter type: initial encounter Qualified Codes: S60.221A - Contusion of right hand, initial encounter (2) Alcohol withdrawal Status: Acute Qualifiers: Complication of substance-induced condition: with unspecified complication Qualified Codes: F10.239 - Alcohol dependence with withdrawal, unspecified (3) Concussion Status: Acute Qualifiers: Encounter type: initial encounter Loss of consciousness presence/duration: with LOC of 30 min or less Qualified Codes: S06.0X1A - Concussion with loss of consciousness of 30 minutes or less, initial encounter (4) Alcohol abuse Status: Acute Clinical Quality Measures AMI/AHF: ASA po Prior to arrival: ANUSHA Guzman MD Mar 14, 2021 09:15
[2021-03-14] MEDS: THIAMINE INJECTION 100 MG, FOLIC ACID INJECTION 1 MG, VITAMIN MULTI INJECTION 10 ML, MA... IV SCH ×5 (10:34)
--- NOTE | 2021-03-14 12:08 | Occupational Therapy Eval ---
OT Evaluation-General/PLF Medical Diagnosis Admission Date Mar 13, 2021 at 11:25 Medical Diagnosis: Alcohol Withdrawal Onset Date: Mar 13, 2021 Therapy Diagnosis Therapy Diagnosis: Impaired ADLs Height/Weight Height (Feet): 6 Height (Inches): 1.00 Weight (Pounds): 211 Weight (Ounces): 0.5 Precautions Precautions/Isolations: Seizure, Fall Prevention, Standard Precautions Safety Interventions: Bed Exit Alarm Referral Referral Reason: Evaluation/Treatment Medical History Pertinent Medical History: Alcoholism, CVA, Fractures Reviewed History: Yes Social History Home: Single Level Current Living Status: Other Family Pt presents to ED via [facility] after having a fall at a local hotel. He has had multiple ER visits this past month due to alcohol intoxication and falls. At least [address] head negative for acute findings. Xray R wrist -no acute fracture. Pt reports staying with his sister in a one story home, yet per chart it appears that the patient may be homeless secondary to not getting along with his brother in law. Pt is a poor historian and no family is present to verify accuracy of responses. Per patient, he was indep with ADLs and was using a cane for mobility. 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 Pt has history of alcohol abuse. ADL-Prior Level of Function SCALE: Activities may be completed with or without assistive devices. 0-Pjwkggwhan-xmzyeym completes the activity by him/herself with no assistance from a helper. 5-Set-up or Clean-up Assistance-helper sets up or cleans up; patient completes activity. Keeler assists only prior to or following the activity. 4-Supervision or Touching Assistance-helper provides verbal cues and/or touching/steadying and/or contact guard assistance as patient completes activity. Assistance may be provided throughout the activity or intermittently. 3-Partial/Moderate Assistance-helper does LESS THAN HALF the effort. Keeler lifts, holds or supports trunk or limbs, but provides less than half the effort. 2-Substantial/Maximal Assistance-helper does MORE THAN HALF the effort. Keeler lifts or holds trunk or limbs and provides more than half the effort. 6-Kmvhmtdrk-djwgkx does ALL the effort. Patient does none of the effort to complete the activity. Or, the assistance of 2 or more helpers is required for the patient to complete the activity. If activity was not attempted, code reason: 7-Patient Refused. 9-Not Applicable-not attempted and the patient did not perform the activity before the current illness, exacerbation or injury. 10-Not Attempted due to Environmental Limitations-(lack of equipment, weather restraints, etc.). 88-Not Attempted due to Medical Conditions or Safety Concerns. Self Care: Unknown Functional Cognition: Unknown DME/Equipment: Bath Chair pt reports that his sister has a shower chair inside tub, yet he would stand to bathe. Unsure of accuracy. OT Current Status Subjective Pt repeatedly asked who (what discipline) therapist was with. Pt reports pain all over body with most intense pain being in his head. Appearance Abrasion over nose, swelling to R eye and R hand. Pt returned to supine, bed alarm set. RN in room at therapist departure. Mental Status/Objective Patient Orientation: Person, Confused Pt alert. Poor recall and confusion with timing of events. Reports difficulty with memory. Poor insight/judgment into deficits. Attachments: IV, Telemetry Current Hand Dominance: Right Upper Extremity ROM Impaired. Pt with residual LUE deficits including AROM and stength. Unsure how much AROM pt had pre fall. Limited RUE secondary to pain. Tolerates shoulder PROM to ~75 degrees. R wrist/digits with significant edema. Upper Extremity Sensation Impaired Upper Extremity Strength Impaired. Not formally tested secondary to pain with light touch. Edema: R hand ADL-Treatment Shower/Bathe Self (QC): 1 Lower Body Dressing (QC): 1 On/Off Footwear (QC): 1 Toileting Hygiene (QC): 1 Supine<>Sit: Assist x2. Min A to achieve balance sitting EOB. Sit<>stand: attempt x2, Dependent. Poor proprioception/awareness of LLE, requires assist to position. Max a x2 to maintain standing balance with Pt only able to tolerate standing for short time before reporting symptoms of dizziness and possible syncope. Poor insight/safety into deficits as pt requesting to take a step/ambulate despite just verbalizing that he might "black out." Assist x2 to return to supine. At this time, pt would require assist x2 for all transfers, toileting, and clothing management. Education OT Patient Education: Correct positioning, Purpose of tx/functional activities, Reviewed precautions, Rehab process, Safety issues, Transfer techniques Teaching Recipient: Patient Teaching Methods: Discussion Response to Teaching: Unable to Return Demonstration, Unable to Comprehend, Reinforcement Needed OT Jail Goals Production Maintenance Mechanic Goals Oral Hygiene (QC): 4 Toileting Hygiene (QC): 3 Shower/Bathe Self (QC): 3 Upper Body Dressing (QC): 4 Lower Body Dressing (QC): 3 On/Off Footwear (QC): 3 1=Demonstrate adherence to instructed precautions during ADL tasks. 2=Patient will verbalize/demonstrate understanding of assistive devices/modifications for ADL. 3=Patient will improve strength/tolerance for activity to enable patient to perform ADL's. OT Education/Plan Problem List/Assessment Assessment: Decreased Activ Tolerance, Decreased Safety Aware, Decreased UE Strength, Dependent Transfers, Edema, Impaired Bed Mobility, Impaired Cognition, Impaired Coordination, Impaired Funct Balance, Impaired I ADL's, Impaired Self- Care Skills, Restricted Funct UE ROM Discharge Recommendations Plan/Recommendations: Continue POC Therapy Discharge Recommendati: 24 Hour Supervision, Post Acute OT Equpiment Recommendations-D/C: Other, See Comments Comment Continue to assess Treatment Plan/Plan of Care Treatment,Training & Education: Yes Patient would benefit from OT for education, treatment and training to promote independence in ADL's, mobility, safety and/or upper extremity function for ADL's. Plan of Care: ADL Retraining, Functional Mobility, Group Exercise/Act as Ind, UE Funct Exercise/Act, UE Neuromus Re-Ed/Coord Treatment Duration: Mar 31, 2021 Frequency: 5 times per week Estimated Hrs Per Day: .25 hour per day Rehab Potential: Guarded Time/GCodes Start Time: 11:45 Stop Time: 12:00 Total Time Billed (hr/min): 15 Billed Treatment Time 1, Therese Gerber OT Mar 14, 2021 12:08
--- NOTE | 2021-03-14 12:30 | Physical Therapy Evaluation ---
PT Evaluation-General Medical Diagnosis Admission Date Mar 13, 2021 at 11:25 Medical Diagnosis: Alcohol Withdrawal Onset Date: Mar 13, 2021 Therapy Diagnosis Therapy Diagnosis: impaired mobility, strength, endurance, balance Height/Weight Height (Feet): 6 Height (Inches): 1.00 Weight (Pounds): 211 Weight (Ounces): 0.5 Precautions Precautions/Isolations: Seizure, Fall Prevention, Standard Precautions Referral Physician: Fabby Reason for Referral: Evaluation/Treatment Medical History Pertinent Medical History: Alcoholism, CVA, Fractures Additional Medical History Past Medical History Surgeries: Orthopedic (Numerous orthopedic injuries) Asthma Pancreatitis, Gall Bladder Disease Back Injury, Fractures (Numerous) Reviewed History: Yes Social History Home: Single Level Current Living Status: Other Family Entry Into Home: Level Entry Prior Prior Level of Function SCALE: Activities may be completed with or without assistive devices. 1-Svmrozkggb-gxpfwwv completes the activity by him/herself with no assistance from a helper. 5-Set-up or Clean-up Assistance-helper sets up or cleans up; patient completes activity. [place] assists only prior to or following the activity. 4-Supervision or Touching Assistance-helper provides verbal cues and/or touc sammie/steadying and/or contact guard assistance as patient completes activity. Assistance may be provided throughout the activity or intermittently. 3-Partial/Moderate Assistance-helper does LESS THAN HALF the effort. [place] lifts, holds or supports trunk or limbs, but provides less than half the effort. 2-Substantial/Maximal Assistance-helper does MORE THAN HALF the effort. [place] lifts or holds trunk or limbs and provides more than half the effort. 7-Jsxijphoj-nqopqt does ALL the effort. Patient does none of the effort to complete the activity. Or, the assistance of 2 or more helpers is required for the patient to complete the activity. If activity was not attempted, code reason: 7-Patient Refused. 9-Not Applicable-not attempted and the patient did not perform the activity before the current illness, exacerbation or injury. 10-Not Attempted due to Environmental Limitations-(lack of equipment, weather restraints, etc.). 88-Not Attempted due to Medical Conditions or Safety Concerns. Bed Mobility: 6 Transfers (B,C,W/C): 6 Gait: 6 Indoor Mobility (Ambulation): Independent Prior Device Use: single point cane PT Evaluation-Current Subjective Patient in bed pre tx, agrees to PT, states his head is pounding Pt/Family Goals "to get stronger" Objective Patient Orientation: Person, Confused Attachments: IV ROM/Strength ROM Lower Extremities WNL Strength Lower Extremities patient had difficulty following directions for MMT Sensory Vision: Functional Hearing: Functional Hand Dominance: Right Sensation Right Lower Extremit: Impaired Sensation Left Lower Extremity: Impaired Transfers Roll Left to Right (QC): 3 Sit to Lying (QC): 1 Lying to Sitting/Side of Bed(Q: 2 Sit to Stand (QC): 2 Patient sat to the side of the bed with max assist, he was dizzy initially but recovered with time, then he stood with max assist after several failed attempts. On the previous attempts his left leg would adduct far enough that he couldn't stand on it, eventually therapist has to hold it in place in the correct position in order for him to stand and he stands with max assist. After standing he says he is going to black out, sits back down and then lays down. Balance Sitting Static: Poor Sitting Dynamic: Poor Standing Static: Poor Standing Dynamic: Poor Assessment/Needs Patient in bed post tx with nurse call, phone, tray, all needs met, bed alarm on. Patient has impaired mobility, strength, endurance, balance. He is a high fall risk. Rehab Potential: Guarded PT Prison Goals Director Counseling Bureau Goals PT Prison Goals Time Frame: Mar 21, 2021 Roll Left & Right (QC): 6 Sit to Lying (QC): 3 Lying-Sitting on Side/Bed(QC): 3 Sit to Stand (QC): 3 Chair/Xij-ro-Ukvop Xfer(QC): 3 PT Plan Problem List Problem List: Activity Tolerance, Functional Strength, Safety, Balance, Gait, Transfer, Bed Mobility, ROM Treatment/Plan Treatment Plan: Continue Plan of Care Treatment Plan: Bed Mobility, Education, Functional Activity Giovanni, Functional Strength, Gait, Safety, Therapeutic Exercise, Transfers Treatment Duration: Mar 21, 2021 Frequency: 6 times per week Estimated Hrs Per Day: .25 hour per day Patient and/or Family Agrees t: Yes Safety Risks/Education Patient Education: Correct Positioning, Safety Issues Teaching Recipient: Patient Teaching Methods: Demonstration, Discussion Response to Teaching: Reinforcement Needed Discharge Recommendations Plan Patient will perform bed mobility and transfer training, balance and endurance training, functional strengthening, gait training, and education, to improve functional mobility and independence at home. Therapy Discharge Recommendati: 24 Hour Supervision Time/GCodes Time In: 1145 Time Out: 1200 Total Billed Treatment Time: 15 Total Billed Treatment 1 visit NORA Coles' CHONG ROJAS PT Mar 14, 2021 12:30
[2021-03-14] MEDS: LORazepam INJ 2 MG/ML (ATIVAN) VIAL IV PRN ×3 (19:36→23:11)
[2021-03-15] MEDS: LORazepam INJ 2 MG/ML (ATIVAN) VIAL IV PRN (03:25)
--- NOTE | 2021-03-15 08:24 | Progress Note - Hospitalist ---
Subjective HPI/CC On Admission Date Seen by Provider: Mar 15, 2021 Time Seen by Provider: 08:19 Patient is 66-year-old male with a past medical history of alcohol abuse, stroke, and on disability for "my body is broken" who presented to the emergency department due to a fall. He is a very poor historian and states he is having memory issues and doesn't recall all of the events that led him to the hospital. He is very vague in his details as well. Apparently he was in the emergency room multiple times this week due to alcohol intoxication and falls. He left AGAINST MEDICAL ADVICE at least once. He believes to think that he was here and was found to have a hip fracture that was missed. Reviewing records that does not appear to be the case. He complains of a pounding headache. He had a CT of his head in the emergency room that was negative for any acute findings. While in CT there was concern for seizure-like activity. Patient states he remembers this entire event but is convinced it was a seizure. He denies any history of seizures. He does have longstanding alcohol use but has gone days and possibly even weeks without drinking and has never had withdrawal symptoms per his report. He states his last drink was yesterday at 3:00 in the morning. His alcohol level at 8 AM yesterday morning was 173. He complains of nausea and vomiting. Despite this he would like to advance his diet. We discussed how this would not make sense and he agrees to continue on clears for now. He states he would like to stay in the hospital for a few days and get everything figured out. I informed him that that is not the goal of being in the hospital but that we'll work on getting his gait steadier and hopefully through withdrawal safely. I believe he is currently homeless as he previously lived with his sister but stated he left as his mudoqrb-fs-znj and he "did not see eye to eye." He could not tell me an address of where he lives. We discussed plan to transfer out of the ICU if he does well. He did not like this plan and would like to stay in the ICU despite not needing any ICU level of care. I informed him that this was not possible either and that he will go to the bed that is most appropriate for his medical status. He wants to know why his memory is foggy. We discussed that he has had multiple falls and likely has a concussion along with long-term alcohol use being the most likely etiology of his symptoms. He disagrees. He states he does drink like this his whole life and never had problems. He is unable to quantify how much he drinks daily for me. Subjective/Events-last exam Pt reports doing ok today. Nausea improved and has had no further vomiting. Requeting diet and coffee as he is "getting grumpy" without coffee. Discussed plan to continue PT/OT for strengthening and transfer to 4th floor when a bed is available. Objective Exam Vital Signs Vital Signs Date Time Temp Pulse Resp B/P (MAP) Pulse Ox O2 Delivery O2 Flow Rate FiO2 03/15/21 13:00 77 03/15/21 12:00 36.4 03/15/21 11:00 24 96 Room Air 03/15/21 03:15 142/87 03/14/21 03:05 1.00 Capillary Refill : Less Than 3 Seconds General Appearance: No Apparent Distress, WD/WN, Chronically ill Cardiovascular: Regular Rate, Rhythm, No Murmur Gastrointestinal: Normal Bowel Sounds, Soft Neurologic/Psychiatric: Alert, Oriented x3 Results/Procedures Lab Patient resulted labs reviewed. Imaging: Reviewed Imaging Report Assessment/Plan Assessment and Plan Assess & Plan/Chief Complaint Alcohol Withdrawal Possible seizure Falls concussion Continue on CIWA protocol Last drink yesterday morning Denies history of withdrawals Transfer to floor, maintain seizure precautions PT/OT financial services specialist consulted given poor social situation Clinical Quality Measures AMI/AHF: ASA po Prior to arrival: ANUSHA Guzman MD Mar 15, 2021 08:24
[2021-03-15] MEDS ORDERED: ASPI-1238 PO (09:59)
[2021-03-15] MEDS: LACTATED RINGERS 1,000 ML IV SCH (10:43)
[2021-03-15] MEDS: THIAMINE INJECTION 100 MG, FOLIC ACID INJECTION 1 MG, VITAMIN MULTI INJECTION 10 ML, MA... IV SCH ×5 (10:48)
--- NOTE | 2021-03-15 10:59 | Occupational Ther Daily Note ---
OT Current Status-Daily Note Subjective Pt continues to report pain "all over." Unable to give numerical value. Mental Status/Objective Patient Orientation: Person, Confused Attachments: IV, Telemetry ADL-Treatment Therapy Code Descriptions/Definitions Functional [place] Measure: 0=Not Assessed/NA 4=Minimal Assistance 1=Total Assistance 5=Supervision or Setup 2=Maximal Assistance 6=Modified [place] 3=Moderate Assistance 7=Complete IndependenceSCALE: Activities may be completed with or without assistive devices. 8-Wnztqbqhzy-fqmftnj completes the activity by him/herself with no assistance from a helper. 5-Set-up or Clean-up Assistance-helper sets up or cleans up; patient completes activity. [place] assists only prior to or following the activity. 4-Supervision or Touching Assistance-helper provides verbal cues and/or touching/steadying and/or contact guard assistance as patient completes activity. Assistance may be provided throughout the activity or intermittently. 3-Partial/Moderate Assistance-helper does LESS THAN HALF the effort. [place] l ifts, holds or supports trunk or limbs, but provides less than half the effort. 2-Substantial/Maximal Assistance-helper does MORE THAN HALF the effort. [place] lifts or holds trunk or limbs and provides more than half the effort. 8-Qqnqxkewc-shexbs does ALL the effort. Patient does none of the effort to complete the activity. Or, the assistance of 2 or more helpers is required for t he patient to complete the activity. If activity was not attempted, code reason: 7-Patient Refused. 9-Not Applicable-not attempted and the patient did not perform the activity before the current illness, exacerbation or injury. 10-Not Attempted due to Environmental Limitations-(lack of equipment, weather restraints, etc.). 88-Not Attempted due to Medical Conditions or Safety Concerns. Lower Body Dressing (QC): 1 (Assist x2) On/Off Footwear: 1 Toileting Hygiene (QC): 1 (Assist x2) Toilet Transfer (QC): 2 Pt supine in bed at therapist arrival. Easily distracted, requires repetition and simplification of cues. Supine>sit EOB with CGA-min A for initial steadying/safety secondary to c/o dizziness. Extra time to initiate correct positioning of feet flat on floor. Stand pivot from bed to chair (towards R) with Max A. Incontinence of urine noted in bed. Pt would require assist of second person for clothing management and tracy care at this time. Pt is a high fall risk due to L sided weakness, poor insight/judgment/safety, reduced proprioception/sensation, and poor compliance with following directions. Education OT Patient Education: Correct positioning, Progress toward Goal/Update tx plan, Purpose of tx/functional activities, Rehab process, Safety issues, Transfer tech niques Teaching Recipient: Patient Teaching Methods: Discussion Response to Teaching: Reinforcement Needed OT Prison Goals Diversity Manager Goals Oral Hygiene (QC): 4 Toileting Hygiene (QC): 3 Shower/Bathe Self (QC): 3 Upper Body Dressing (QC): 4 Lower Body Dressing (QC): 3 On/Off Footwear (QC): 3 1=Demonstrate adherence to instructed precautions during ADL tasks. 2=Patient will verbalize/demonstrate understanding of assistive devices/modifications for ADL. 3=Patient will improve strength/tolerance for activity to enable patient to perform ADL's. OT Education/Plan Problem List/Assessment Assessment: Decreased Activ Tolerance, Decreased Safety Aware, Decreased UE Strength, Dependent Transfers, Impaired Bed Mobility, Impaired Cognition, Impaired Coordination, Impaired Funct Balance, Impaired I ADL's, Impaired Self- Care Skills, Restricted Funct UE ROM Discharge Recommendations Plan/Recommendations: Continue POC Therapy Discharge Recommendati: 24 Hour Supervision, Homemaker Support, Post Acute OT Treatment Plan/Plan of Care Treatment,Training & Education: Yes Patient would benefit from OT for education, treatment and training to promote independence in ADL's, mobility, safety and/or upper extremity function for ADL's. Plan of Care: ADL Retraining, Functional Mobility, Group Exercise/Act as Ind, UE Funct Exercise/Act, UE Neuromus Re-Ed/Coord Treatment Duration: Mar 31, 2021 Frequency: 5 times per week Estimated Hrs Per Day: .25 hour per day Rehab Potential: Guarded Time/GCodes Start Time: 10:35 Stop Time: 10:48 Total Time Billed (hr/min): 13 Billed Treatment Time 1, Therese Fagan OT Mar 15, 2021 10:59
--- NOTE | 2021-03-15 11:06 | Physical Therapy Daily Note ---
PT Daily Note-Current Subjective Patient in bed pre tx, agrees to PT, states he doesn't have as much of a headache today. Appearance Patient in recliner post tx with nurse call, phone, tray, all needs met, legs elevated, chair alarm on. Mental Status Patient Orientation: Person, Confused Attachments: Lopez Catheter Transfers SCALE: Activities may be completed with or without assistive devices. 0-Yhgbjpmrxs-uizwhon completes the activity by him/herself with no assistance from a helper. 5-Set-up or Clean-up Assistance-helper sets up or cleans up; patient completes activity. [place] assists only prior to or following the activity. 4-Supervision or Touching Assistance-helper provides verbal cues and/or touching/steadying and/or contact guard assistance as patient completes activity. Assistance may be provided throughout the activity or intermittently. 3-Partial/Moderate Assistance-helper does LESS THAN HALF the effort. [place] lifts, holds or supports trunk or limbs, but provides less than half the effort. 2-Substantial/Maximal Assistance-helper does MORE THAN HALF the effort. [place] lifts or holds trunk or limbs and provides more than half the effort. 2-Fqqaqzand-oqhnso does ALL the effort. Patient does none of the effort to complete the activity. Or, the assistance of 2 or more helpers is required for the patient to complete the activity. If activity was not attempted, code reason: 7-Patient Refused. 9-Not Applicable-not attempted and the patient did not perform the activity befo re the current illness, exacerbation or injury. 10-Not Attempted due to Environmental Limitations-(lack of equipment, weather re straints, etc.). 88-Not Attempted due to Medical Conditions or Safety Concerns. Roll Left & Right (QC): 6 Lying to Sitting/Side of Bed(Q: 3 Sit to Stand (QC): 2 Chair/Gwu-oz-Kjqkr Xfer(QC): 2 Patient is unsteady and has poor safety awareness, he is able to stand with max assist and turn toward the recliner but cannot make it all the way and has to be guided down to the chair via therapist assist. Treatments bed mobility and transfers Assessment Current Status: Poor Progress high fall risk, poor safety awareness PT Supervisor Claims Goals Care Home Goals PT Care Home Goals Time Frame: Mar 21, 2021 Roll Left & Right (QC): 6 Sit to Lying (QC): 3 Lying-Sitting on Side/Bed(QC): 3 Sit to Stand (QC): 3 Chair/Zux-ks-Akbbr Xfer(QC): 3 PT Plan Problem List Problem List: Activity Tolerance, Functional Strength, Safety, Balance, Gait, Transfer, Bed Mobility, ROM Treatment/Plan Treatment Plan: Continue Plan of Care Treatment Plan: Bed Mobility, Education, Functional Activity Giovanni, Functional Strength, Gait, Safety, Therapeutic Exercise, Transfers Treatment Duration: Mar 21, 2021 Frequency: 6 times per week Estimated Hrs Per Day: .25 hour per day Patient and/or Family Agrees t: Yes Safety Risks/Education Patient Education: Transfer Techniques, Correct Positioning, Safety Issues Teaching Recipient: Patient Teaching Methods: Demonstration, Discussion Response to Teaching: Reinforcement Needed Time/GCodes Time In: 1035 Time Out: 1048 Total Billed Treatment Time: 13 Total Billed Treatment 1 visit FA Lm' CHONG ROJAS PT Mar 15, 2021 11:06
--- NOTE | 2021-03-15 13:27 | Progress Note ---
Subjective Date Seen by a Provider: Mar 15, 2021 Time Seen by a Provider: 13:00 Subjective/Events-last exam doing ok however agitated. tolerating diet. complains of global joint pain. no neuro deficits Objective Exam Vital Signs Date Time Temp Pulse Resp B/P (MAP) Pulse Ox O2 Delivery O2 Flow Rate FiO2 03/15/21 12:00 36.4 03/15/21 08:00 92 Room Air 03/15/21 08:00 36.3 03/15/21 07:00 63 03/15/21 03:15 59 18 142/87 Room Air 03/15/21 01:00 60 03/14/21 23:14 36.6 72 20 150/97 93 Room Air 03/14/21 21:00 92 Room Air 03/14/21 19:56 36.5 03/14/21 19:27 78 18 153/97 95 Room Air 03/14/21 19:00 81 03/14/21 16:00 35.4 I & O 03/15/21 07:00 Intake Total 1750 ml Output Total 2650 ml Balance -900 ml Capillary Refill : Less Than 3 Seconds General Appearance: No Apparent Distress HEENT: PERRL/EOMI Neck: Full Range of Motion Respiratory: Chest Non Tender Cardiovascular: Regular Rate, Rhythm Gastrointestinal: normal bowel sounds, non tender, soft Extremity: Normal Capillary Refill Neurologic/Psychiatric: Alert, Oriented x3 Skin: Normal Color Lymphatic: No Adenopathy Results Lab Microbiology 03/13/21 MRSA Screen - Final, Complete MRSA not isolated Assessment/Plan Assessment/Plan Assess & Plan/Chief Complaint same level fall with concussion. PT and ambulate. diet as tolerated. ETOH detox protocol Clinical Quality Measures AMI/AHF: ASA po Prior to arrival: JENSEN Sutton MD Mar 15, 2021 13:27
[2021-03-15] MEDS ORDERED: CATHETER FLUSH 10 ML SYR IV PRN (16:00)
[2021-03-15] MEDS: ONDANSETRON 4 MG/2 ML (SDV) Z0FRAN IV PRN (20:00)
[2021-03-15] MEDS: LORazepam 1 MG (ATIVAN) TAB PO PRN (20:00)
[2021-03-15] MEDS: ACETAMINOPHEN 500 MG TAB (TYLENOL) PO PRN (20:02)
[2021-03-16] MEDS: ONDANSETRON 4 MG/2 ML (SDV) Z0FRAN IV PRN (01:13)
[2021-03-16] MEDS: LORazepam 1 MG (ATIVAN) TAB PO PRN ×3 (01:13→09:17)
[2021-03-16] MEDS: IBUPROFEN 600 MG (MOTRIN) TAB PO PRN ×2 (02:23→13:45)
--- NOTE | 2021-03-16 09:01 | Progress Note - Hospitalist ---
Subjective HPI/CC On Admission Date Seen by Provider: Mar 16, 2021 Time Seen by Provider: 08:58 Patient is 66-year-old male with a past medical history of alcohol abuse, stroke, and on disability for "my body is broken" who presented to the emergency department due to a fall. He is a very poor historian and states he is having memory issues and doesn't recall all of the events that led him to the hospital. He is very vague in his details as well. Apparently he was in the emergency room multiple times this week due to alcohol intoxication and falls. He left AGAINST MEDICAL ADVICE at least once. He believes to think that he was here and was found to have a hip fracture that was missed. Reviewing records that does not appear to be the case. He complains of a pounding headache. He had a CT of his head in the emergency room that was negative for any acute findings. While in CT there was concern for seizure-like activity. Patient states he remembers this entire event but is convinced it was a seizure. He denies any history of seizures. He does have longstanding alcohol use but has gone days and possibly even weeks without drinking and has never had withdrawal symptoms per his report. He states his last drink was yesterday at 3:00 in the morning. His alcohol level at 8 AM yesterday morning was 173. He complains of nausea and vomiting. Despite this he would like to advance his diet. We discussed how this would not make sense and he agrees to continue on clears for now. He states he would like to stay in the hospital for a few days and get everything figured out. I informed him that that is not the goal of being in the hospital but that we'll work on getting his gait steadier and hopefully through withdrawal safely. I believe he is currently homeless as he previously lived with his sister but stated he left as his oexalkk-sg-lja and he "did not see eye to eye." He could not tell me an address of where he lives. We discussed plan to transfer out of the ICU if he does well. He did not like this plan and would like to stay in the ICU despite not needing any ICU level of care. I informed him that this was not possible either and that he will go to the bed that is most appropriate for his medical status. He wants to know why his memory is foggy. We discussed that he has had multiple falls and likely has a concussion along with long-term alcohol use being the most likely etiology of his symptoms. He disagrees. He states he does drink like this his whole life and never had problems. He is unable to quantify how much he drinks daily for me. Subjective/Events-last exam Pt reports doing ok. No complaints. Discussed plan for safe discharge and that he has not been making meaningful gain with PT yet and that he made need a fdc upon discharge. He just closed his eyes to this. Objective Exam Vital Signs Vital Signs Date Time Temp Pulse Resp B/P (MAP) Pulse Ox O2 Delivery O2 Flow Rate FiO2 03/16/21 04:00 36.9 67 20 104/67 91 Room Air 03/14/21 03:05 1.00 Capillary Refill : Less Than 3 Seconds General Appearance: No Apparent Distress, Chronically ill Respiratory: Lungs Clear, No Respiratory Distress Cardiovascular: Regular Rate, Rhythm, No Murmur Neurologic/Psychiatric: Alert, Oriented x3 Results/Procedures Lab Patient resulted labs reviewed. Imaging: Reviewed Imaging Report Assessment/Plan Assessment and Plan Assess & Plan/Chief Complaint Alcohol Withdrawal Possible seizure Falls concussion Continue on CIWA protocol Only needed oral ativan yesterrday Last drink yesterday morning Denies history of withdrawals PT/OT nutrition services associate consulted given poor social situation May very well need placement but IRF eval placed as well Diagnosis/Problems Diagnosis/Problems (1) Contusion of right hand Status: Acute Qualifiers: Encounter type: initial encounter Qualified Codes: S60.221A - Contusion of right hand, initial encounter (2) Alcohol withdrawal Status: Acute Qualifiers: Complication of substance-induced condition: with unspecified complication Qualified Codes: F10.239 - Alcohol dependence with withdrawal, unspecified (3) Concussion Status: Acute Qualifiers: Encounter type: initial encounter Loss of consciousness presence/duration: with LOC of 30 min or less Qualified Codes: S06.0X1A - Concussion with loss of consciousness of 30 minutes or less, initial encounter (4) Alcohol abuse Status: Acute Clinical Quality Measures AMI/AHF: ASA po Prior to arrival: ANUSHA Guzman MD Mar 16, 2021 09:00
[2021-03-16] MEDS: PANTOPRAZOLE 40 MG (PROTONIX) TAB PO SCH (09:11)
[2021-03-16] MEDS: ACETAMINOPHEN 500 MG TAB (TYLENOL) PO PRN ×2 (09:17→18:02)
[2021-03-16 09:22] LABS: HEMOGLOBIN 16.8 g/dL (13.3-17.7); MEAN PLATELET VOLUME 11.5 fL (9.0-12.2); WHITE BLOOD COUNT 5.3 10^3/uL (4.3-11.0)
[2021-03-16 09:37] LABS: CALCIUM 9.2 MG/DL (8.5-10.1)
[2021-03-16 09:42] LABS: CREATININE SERUM 0.82 MG/DL (0.60-1.30)
--- NOTE | 2021-03-16 09:48 | Physical Therapy Daily Note ---
PT Daily Note-Current Subjective Patient in bed pre tx, agrees to PT, has a headache. Appearance Patient in recliner post tx with nurse call, phone, tray, all needs met, chair alarm on and nurse aide notified. Mental Status Patient Orientation: Person, Place Transfers SCALE: Activities may be completed with or without assistive devices. 8-Fwnirlvqvf-fuspdfc completes the activity by him/herself with no assistance from a helper. 5-Set-up or Clean-up Assistance-helper sets up or cleans up; patient completes activity. [place] assists only prior to or following the activity. 4-Supervision or Touching Assistance-helper provides verbal cues and/or touching/steadying and/or contact guard assistance as patient completes activity. Assistance may be provided throughout the activity or intermittently. 3-Partial/Moderate Assistance-helper does LESS THAN HALF the effort. [place] lifts, holds or supports trunk or limbs, but provides less than half the effort. 2-Substantial/Maximal Assistance-helper does MORE THAN HALF the effort. [place] lifts or holds trunk or limbs and provides more than half the effort. 7-Shcxowpmr-ejiijc does ALL the effort. Patient does none of the effort to complete the activity. Or, the assistance of 2 or more helpers is required for the patient to complete the activity. If activity was not attempted, code reason: 7-Patient Refused. 9-Not Applicable-not attempted and the patient did not perform the activity before the current illness, exacerbation or injury. 10-Not Attempted due to Environmental Limitations-(lack of equipment, weather restraints, etc.). 88-Not Attempted due to Medical Conditions or Safety Concerns. Roll Left & Right (QC): 3 Lying to Sitting/Side of Bed(Q: 3 Sit to Stand (QC): 1 Chair/Anv-ka-Ndpif Xfer(QC): 1 Assist of 2 to stand and transfer to recliner. Patient is very unsteady but doesn't think he will black out like he thought yesterday. Patient's knees buckle and then catch many times during transfer, has difficulty stepping. Very unsteady and shaky. Exercises Seated Therapy Exercises: Ankle pumps, Long arc quads Seated Reps: 20 Treatments bed mobility and transfers, LE strengthening Assessment Current Status: Poor Progress high fall risk, poor safety awareness PT Antenna Specialist Goals Antenna Specialist Goals PT Antenna Specialist Goals Time Frame: Mar 21, 2021 Roll Left & Right (QC): 6 Sit to Lying (QC): 3 Lying-Sitting on Side/Bed(QC): 3 Sit to Stand (QC): 3 Chair/Cts-xf-Oaogn Xfer(QC): 3 PT Plan Problem List Problem List: Activity Tolerance, Functional Strength, Safety, Balance, Gait, Transfer, Bed Mobility, ROM Treatment/Plan Treatment Plan: Continue Plan of Care Treatment Plan: Bed Mobility, Education, Functional Activity Giovanni, Functional Strength, Gait, Safety, Therapeutic Exercise, Transfers Treatment Duration: Mar 21, 2021 Frequency: 6 times per week Estimated Hrs Per Day: .25 hour per day Patient and/or Family Agrees t: Yes Safety Risks/Education Patient Education: Transfer Techniques, Correct Positioning, Safety Issues Teaching Recipient: Patient Teaching Methods: Demonstration, Discussion Response to Teaching: Reinforcement Needed Time/GCodes Time In: 926 Time Out: 938 Total Billed Treatment Time: 12 Total Billed Treatment 1 visit FA CHONG MILLER PT Mar 16, 2021 09:48
--- NOTE | 2021-03-16 10:04 | Occupational Ther Daily Note ---
OT Current Status-Daily Note Subjective Pt continues to report pain all over body, with worse pain located in head. Appearance Pt left sitting in chair, alarm set, all needs within reach, RN informed. Mental Status/Objective Patient Orientation: Person, Confused, Place Attachments: IV ADL-Treatment Therapy Code Descriptions/Definitions Functional [place] Measure: 0=Not Assessed/NA 4=Minimal Assistance 1=Total Assistance 5=Supervision or Setup 2=Maximal Assistance 6=Modified [place] 3=Moderate Assistance 7=Complete IndependenceSCALE: Activities may be completed with or without assistive devices. 5-Aseewcmpvv-beezwgy completes the activity by him/herself with no assistance from a helper. 5-Set-up or Clean-up Assistance-helper sets up or cleans up; patient completes activity. [place] assists only prior to or following the activity. 4-Supervision or Touching Assistance-helper provides verbal cues and/or t ouching/steadying and/or contact guard assistance as patient completes activity. Assistance may be provided throughout the activity or intermittently. 3-Partial/Moderate Assistance-helper does LESS THAN HALF the effort. [place] lifts, holds or supports trunk or limbs, but provides less than half the effort. 2-Substantial/Maximal Assistance-helper does MORE THAN HALF the effort. [place] lifts or holds trunk or limbs and provides more than half the effort. 2-Ynstqxfgb-nuzlgk does ALL the effort. Patient does none of the effort to complete the activity. Or, the assistance of 2 or more helpers is required for the patient to complete the activity. If activity was not attempted, code reason: 7-Patient Refused. 9-Not Applicable-not attempted and the patient did not perform the activity before the current illness, exacerbation or injury. 10-Not Attempted due to Environmental Limitations-(lack of equipment, weather restraints, etc.). 88-Not Attempted due to Medical Conditions or Safety Concerns. Lower Body Dressing (QC): 1 (Assist x2) On/Off Footwear: 1 (Dep) Toileting Hygiene (QC): 1 (Assist x2) Toilet Transfer (QC): 1 (assist x2) Other Treatment Pt supine in bed at therapist arrival. Slight improvement in attention this date. Less edema noted in R hand. Education on gentle ROM exercises to aid in reduction of swelling. Pt continues to report pain with all shoulder movements in both R/L. He verbalizes pain going across chest. Only able to tolerate PROM to ~60 degrees. Pt can get agitated easily and requires reinforcement/education on purpose of therapy. Supine>sit with hand held assist for elevating trunk. Mild c/o dizziness upon sitting but improved from previous date. Dep to don tomi socks, little effort given. Sit<>Stand: Max A. In standing, pt very unsteady on feet. BLE's trembling/ knees buckling. Requires assist x2 to maintain balance. Difficulty transitioning feet towards recliner. LOB posterior with assist to safely lower into chair. At this time, pt will require assist of second person for clothing management and tracy care. Pt is a high fall risk due to L sided weakness, poor insight/judgment/safety, reduced proprioception/sensation, and poor compliance with following directions. Education OT Patient Education: Correct positioning, Disease process, Exercise program, Modified ADL techniques, Progress toward Goal/Update tx plan, Purpose of tx/functional activities, Reviewed precautions, Rehab process, Safety issues, Transfer techniques Teaching Recipient: Patient Teaching Methods: Demonstration, Discussion Response to Teaching: Verbalize Understanding, Reinforcement Needed OT Penitentiary Goals Catechist Goals Oral Hygiene (QC): 4 Toileting Hygiene (QC): 3 Shower/Bathe Self (QC): 3 Upper Body Dressing (QC): 4 Lower Body Dressing (QC): 3 On/Off Footwear (QC): 3 1=Demonstrate adherence to instructed precautions during ADL tasks. 2=Patient will verbalize/demonstrate understanding of assistive devices/modif ications for ADL. 3=Patient will improve strength/tolerance for activity to enable patient to perform ADL's. OT Education/Plan Problem List/Assessment Assessment: Decreased Activ Tolerance, Decreased Safety Aware, Decreased UE Strength, Dependent Transfers, Edema, Impaired Bed Mobility, Impaired Cognition, Impaired Coordination, Impaired Funct Balance, Impaired I ADL's, Impaired Self- Care Skills, Restricted Funct UE ROM Discharge Recommendations Plan/Recommendations: Continue POC Therapy Discharge Recommendati: 24 Hour Supervision, Homemaker Support, Post Acute OT Treatment Plan/Plan of Care Treatment,Training & Education: Yes Patient would benefit from OT for education, treatment and training to promote independence in ADL's, mobility, safety and/or upper extremity function for ADL's. Plan of Care: ADL Retraining, Functional Mobility, Group Exercise/Act as Ind, UE Funct Exercise/Act, UE Neuromus Re-Ed/Coord Treatment Duration: Mar 31, 2021 Frequency: 5 times per week Estimated Hrs Per Day: .25 hour per day Rehab Potential: Guarded Time/GCodes Start Time: 09:27 Stop Time: 09:40 Total Time Billed (hr/min): 13 Billed Treatment Time 1, Therese Fagan OT Mar 16, 2021 10:04
[2021-03-16] MEDS ORDERED: MECLIZINE 25 MG (ANTIVERT) TAB PO PRN (10:30)
[2021-03-16] MEDS: hydrOXYzine (ATARAX) 10 MG TAB PO PRN (13:45)
[2021-03-16] MEDS: MELATONIN 3 MG TABLET PO SCH (20:15)
[2021-03-17] MEDS: LORazepam 1 MG (ATIVAN) TAB PO PRN (08:33)
[2021-03-17] MEDS: PANTOPRAZOLE 40 MG (PROTONIX) TAB PO SCH (08:33)
[2021-03-17] MEDS ORDERED: AMITRIPTYLINE 25 MG (ELAVIL) TAB PO ONE (09:30)
--- NOTE | 2021-03-17 14:39 | Physical Therapy Daily Note ---
PT Daily Note-Current Subjective Patient in bed pre tx, agrees to PT, has according to patient severe headache that doesn't subside but wont give a pain rating. Patient states that he doesn't want to get into the recliner due to back pain. Appearance Patient on commode post tx, nurse aide in room. Mental Status Patient Orientation: Person, Situation Transfers SCALE: Activities may be completed with or without assistive devices. 0-Amczeobhsq-fazxbwi completes the activity by him/herself with no assistance from a helper. 5-Set-up or Clean-up Assistance-helper sets up or cleans up; patient completes activity. [place] assists only prior to or following the activity. 4-Supervision or Touching Assistance-helper provides verbal cues and/or touching/steadying and/or contact guard assistance as patient completes activity. Assistance may be provided throughout the activity or intermittently. 3-Partial/Moderate Assistance-helper does LESS THAN HALF the effort. [place] lifts, holds or supports trunk or limbs, but provides less than half the effort. 2-Substantial/Maximal Assistance-helper does MORE THAN HALF the effort. [place] lifts or holds trunk or limbs and provides more than half the effort. 5-Oswcvppib-medloh does ALL the effort. Patient does none of the effort to complete the activity. Or, the assistance of 2 or more helpers is required for the patient to complete the activity. If activity was not attempted, code reason: 7-Patient Refused. 9-Not Applicable-not attempted and the patient did not perform the activity before the current illness, exacerbation or injury. 10-Not Attempted due to Environmental Limitations-(lack of equipment, weather restraints, etc.). 88-Not Attempted due to Medical Conditions or Safety Concerns. Roll Left & Right (QC): 6 Lying to Sitting/Side of Bed(Q: 3 Sit to Stand (QC): 3 Chair/Vln-di-Danjx Xfer(QC): 3 supine to sit min assist, sit to stand mod assist, stand pivot transfers min assist (to the right side). Patient was able to stand x3 from the bed for about 30 sec each time, states he feels light headed the whole time. He was able to take one side step toward the head of the bed before stating he needs to use the commode. Treatments bed mobility, standing, toileting Assessment Current Status: Fair Progress Patient is slightly less unsteady with standing and transfers but displays very unsafe behavior, poor safety awareness. PT Senior Outside Sales Representative Goals Senior Living Goals PT Senior Living Goals Time Frame: Mar 21, 2021 Roll Left & Right (QC): 6 Sit to Lying (QC): 3 Lying-Sitting on Side/Bed(QC): 3 Sit to Stand (QC): 3 Chair/Paw-yc-Rtdwg Xfer(QC): 3 PT Plan Problem List Problem List: Activity Tolerance, Functional Strength, Safety, Balance, Gait, Transfer, Bed Mobility, ROM Treatment/Plan Treatment Plan: Continue Plan of Care Treatment Plan: Bed Mobility, Education, Functional Activity [place], Functional Strength, Gait, Safety, Therapeutic Exercise, Transfers Treatment Duration: Mar 21, 2021 Frequency: 6 times per week Estimated Hrs Per Day: .25 hour per day Patient and/or Family Agrees t: Yes Safety Risks/Education Patient Education: Transfer Techniques, Correct Positioning, Safety Issues Teaching Recipient: Patient Teaching Methods: Demonstration, Discussion Response to Teaching: Reinforcement Needed Time/GCodes Time In: 1412 Time Out: 1428 Total Billed Treatment Time: 16 Total Billed Treatment 1 visit FA CHONG DESAI PT Mar 17, 2021 14:39
--- NOTE | 2021-03-17 14:42 | Occupational Ther Daily Note ---
OT Current Status-Daily Note Subjective Continues to report severe pressure/pulsing pain in head. RN aware. Appearance Remained supine in bed, all needs within reach. PT entering room. Mental Status/Objective Patient Orientation: Person, Place, Time, Situation Attachments: IV Pt more alert and oriented this date. ADL-Treatment Plan to complete bathing task sitting EOB in next session. Therapy Code Descriptions/Definitions Functional [place] Measure: 0=Not Assessed/NA 4=Minimal Assistance 1=Total Assistance 5=Supervision or Setup 2=Maximal Assistance 6=Modified [place] 3=Moderate Assistance 7=Complete IndependenceSCALE: Activities may be completed with or without assistive devices. 8-Zgbfmlqscm-sdhyqio completes the activity by him/herself with no assistance from a helper. 5-Set-up or Clean-up Assistance-helper sets up or cleans up; patient completes activity. [place] assists only prior to or following the activity. 4-Supervision or Touching Assistance-helper provides verbal cues and/or touching/steadying and/or contact guard assistance as patient completes activity. Assistance may be provided throughout the activity or intermittently. 3-Partial/Moderate Assistance-helper does LESS THAN HALF the effort. [place] lifts, holds or supports trunk or limbs, but provides less than half the effort. 2-Substantial/Maximal Assistance-helper does MORE THAN HALF the effort. [place] lifts or holds trunk or limbs and provides more than half the effort. 6-Lzavsssom-ivhddm does ALL the effort. Patient does none of the effort to com plete the activity. Or, the assistance of 2 or more helpers is required for the patient to complete the activity. If activity was not attempted, code reason: 7-Patient Refused. 9-Not Applicable-not attempted and the patient did not perform the activity before the current illness, exacerbation or injury. 10-Not Attempted due to Environmental Limitations-(lack of equipment, weather restraints, etc.). 88-Not Attempted due to Medical Conditions or Safety Concerns. Other Treatment Pt participated in BUE exercises in supine with goal to increase strength, endurance, and ROM needed for adls and transfers. Pt is hyper-verbal and requires several cues to return attention back to task. All shoulder exercises performed within pain tolerance; ~90 degrees Right (AROM), ~45 degrees Left (PROM). L elbow flex/ext (AAROM-PROM). 10 reps each x1 set. Cues for control/efficiency of movement. Education OT Patient Education: Correct positioning, Exercise program, Purpose of tx/functional activities Teaching Recipient: Patient Teaching Methods: Demonstration, Discussion Response to Teaching: Verbalize Understanding, Reinforcement Needed OT Electrician Telephone Goals Electrician Telephone Goals Oral Hygiene (QC): 4 Toileting Hygiene (QC): 3 Shower/Bathe Self (QC): 3 Upper Body Dressing (QC): 4 Lower Body Dressing (QC): 3 On/Off Footwear (QC): 3 1=Demonstrate adherence to instructed precautions during ADL tasks. 2=Patient will verbalize/demonstrate understanding of assistive devices/modifications for ADL. 3=Patient will improve strength/tolerance for activity to enable patient to perform ADL's. OT Education/Plan Problem List/Assessment Assessment: Decreased Activ Tolerance, Decreased Safety Aware, Decreased UE Strength, Impaired Bed Mobility, Impaired Cognition, Impaired Coordination, Impaired Funct Balance, Impaired I ADL's, Impaired Self-Care Skills, Restricted Funct UE ROM Discharge Recommendations Plan/Recommendations: Continue POC Therapy Discharge Recommendati: 24 Hour Supervision, Post Acute OT Treatment Plan/Plan of Care Treatment,Training & Education: Yes Patient would benefit from OT for education, treatment and training to promote independence in ADL's, mobility, safety and/or upper extremity function for ADL's. Plan of Care: ADL Retraining, Functional Mobility, Group Exercise/Act as Ind, UE Funct Exercise/Act, UE Neuromus Re-Ed/Coord Treatment Duration: Mar 31, 2021 Frequency: 5 times per week Estimated Hrs Per Day: .25 hour per day Rehab Potential: Guarded Time/GCodes Start Time: 13:50 Stop Time: 14:13 Total Time Billed (hr/min): 23 Billed Treatment Time 1, EX x2 Therese Proctor OT Mar 17, 2021 14:42
[2021-03-17] MEDS: hydrOXYzine (ATARAX) 10 MG TAB PO PRN (14:54)
--- NOTE | 2021-03-17 15:53 | Progress Note - Hospitalist ---
Subjective HPI/CC On Admission Date Seen by Provider: Mar 17, 2021 Time Seen by Provider: 08:00 Patient is 66-year-old male with a past medical history of alcohol abuse, stroke, and on disability for "my body is broken" who presented to the emergency department due to a fall. He is a very poor historian and states he is having memory issues and doesn't recall all of the events that led him to the hospital. He is very vague in his details as well. Apparently he was in the emergency room multiple times this week due to alcohol intoxication and falls. He left AGAINST MEDICAL ADVICE at least once. He believes to think that he was here and was found to have a hip fracture that was missed. Reviewing records that does not appear to be the case. He complains of a pounding headache. He had a CT of his head in the emergency room that was negative for any acute findings. While in CT there was concern for seizure-like activity. Patient states he remembers this entire event but is convinced it was a seizure. He denies any history of seizures. He does have longstanding alcohol use but has gone days and possibly even weeks without drinking and has never had withdrawal symptoms per his report. He states his last drink was yesterday at 3:00 in the morning. His alcohol level at 8 AM yesterday morning was 173. He complains of nausea and vomiting. Despite this he would like to advance his diet. We discussed how this would not make sense and he agrees to continue on clears for now. He states he would like to stay in the hospital for a few days and get everything figured out. I informed him that that is not the goal of being in the hospital but that we'll work on getting his gait steadier and hopefully through withdrawal safely. I believe he is currently homeless as he previously lived with his sister but stated he left as his lpbkjkm-bl-ywk and he "did not see eye to eye." He could not tell me an address of where he lives. We discussed plan to transfer out of the ICU if he does well. He did not like this plan and would like to stay in the ICU despite not needing any ICU level of care. I informed him that this was not possible either and that he will go to the bed that is most appropriate for his medical status. He wants to know why his memory is foggy. We discussed that he has had multiple falls and likely has a concussion along with long-term alcohol use being the most likely etiology of his symptoms. He disagrees. He states he does drink like this his whole life and never had problems. He is unable to quantify how much he drinks daily for me. Subjective/Events-last exam Pt complains of pounding headache. Has been refusing tylenol and ibuprofen though. States headache gets worse when watching TV or loud noises. Explained brain rest to him following concussion. Objective Exam Vital Signs Vital Signs Date Time Temp Pulse Resp B/P (MAP) Pulse Ox O2 Delivery O2 Flow Rate FiO2 03/17/21 12:00 35.9 75 18 154/96 96 Room Air 03/17/21 09:00 1.00 Capillary Refill : Less Than 3 Seconds General Appearance: No Apparent Distress, Chronically ill Respiratory: Lungs Clear, No Respiratory Distress Cardiovascular: Regular Rate, Rhythm, No Murmur Neurologic/Psychiatric: Alert, Oriented x3 Results/Procedures Lab Patient resulted labs reviewed. Imaging: Reviewed Imaging Report Assessment/Plan Assessment and Plan Assess & Plan/Chief Complaint Alcohol Withdrawal Possible seizure Falls concussion Continue on CIWA protocol Only needing oral ativan and less so Last drink 3-4 days ago now Denies history of withdrawals PT/OT coordinator of library services consulted given poor social situation Referral sent [facility] Diagnosis/Problems Diagnosis/Problems (1) Contusion of right hand Status: Acute Qualifiers: Encounter type: initial encounter Qualified Codes: S60.221A - Contusion of right hand, initial encounter (2) Alcohol withdrawal Status: Acute Qualifiers: Complication of substance-induced condition: with unspecified complication Qualified Codes: F10.239 - Alcohol dependence with withdrawal, unspecified (3) Concussion Status: Acute Qualifiers: Encounter type: initial encounter Loss of consciousness presence/duration: with LOC of 30 min or less Qualified Codes: S06.0X1A - Concussion with loss of consciousness of 30 minutes or less, initial encounter (4) Alcohol abuse Status: Acute Clinical Quality Measures AMI/AHF: ASA po Prior to arrival: ANUSHA Guzman MD Mar 17, 2021 15:52
[2021-03-17] MEDS: AMITRIPTYLINE 25 MG (ELAVIL) TAB PO SCH (21:00)
[2021-03-17] MEDS: MELATONIN 3 MG TABLET PO SCH (21:00)
[2021-03-18] MEDS: LORazepam 1 MG (ATIVAN) TAB PO PRN (08:03)
[2021-03-18] MEDS: PANTOPRAZOLE 40 MG (PROTONIX) TAB PO SCH (08:03)
--- NOTE | 2021-03-18 11:34 | Occupational Ther Daily Note ---
OT Current Status-Daily Note Subjective Pt alert, lying in bed. Pt agrees to therapy. Pt warns LONG of possibility of blacking out with movement and that his head continuously is throbbing. Pt is hyper-verbal and requires cues to focus on task. Mental Status/Objective Patient Orientation: Person, Place, Time, Situation Attachments: IV ADL-Treatment Therapy Code Descriptions/Definitions Functional [place] Measure: 0=Not Assessed/NA 4=Minimal Assistance 1=Total Assistance 5=Supervision or Setup 2=Maximal Assistance 6=Modified [place] 3=Moderate Assistance 7=Complete IndependenceSCALE: Activities may be completed with or without assistive devices. 3-Osgrttrjsy-qpqzzzf completes the activity by him/herself with no assistance from a helper. 5-Set-up or Clean-up Assistance-helper sets up or cleans up; patient completes activity. [place] assists only prior to or following the activity. 4-Supervision or Touching Assistance-helper provides verbal cues and/or touching/steadying and/or contact guard assistance as patient completes activity. Assistance may be provided throughout the activity or intermittently. 3-Partial/Moderate Assistance-helper does LESS THAN HALF the effort. [place] lifts, holds or supports trunk or limbs, but provides less than half the effort. 2-Substantial/Maximal Assistance-helper does MORE THAN HALF the effort. [place] lifts or holds trunk or limbs and provides more than half the effort. 2-Urrvigyhl-rzwlya does ALL the effort. Patient does none of the effort to complete the activity. Or, the assistance of 2 or more helpers is required for the patient to complete the activity. If activity was not attempted, code reason: 7-Patient Refused. 9-Not Applicable-not attempted and the patient did not perform the activity before the current illness, exacerbation or injury. 10-Not Attempted due to Environmental Limitations-(lack of equipment, weather restraints, etc.). 88-Not Attempted due to Medical Conditions or Safety Concerns. Other Treatment Pt states that he would rather work on UE strength than wash up. Used medium resistance theraband with R UE for bicep curls and shldr retraction/protraction 1 set 10 reps. Initially started with AAROM for L UE then pt demonstrates slow but good AROM for bicep flex, tricep ext, shldr retraction. Pt c/o pain at anterior L shldr area with shldr flexion at ~70*. Attempted to position pt's shldr to optimal position, pt continues to c/o pain. Had pt lay down in supine to allow support throughout L shldr for ROM, pt limited AAROM and AROM. When asked pt to lift L UE to place a pillow under arm for support, pt able to extend L UE and lift above 90* without difficulty. Pt appears to be limiting ROM dur ing treatment. Pt has able to bus driver/monitor medium resistance theraband with L hand and stabilize while completing bicep curls with R UE. Pt was able to complete opposition to 1st and 2nd digit of L hand. Supine <--> EOB independent. After therapy, pt sitting in recliner with call light/phone in reach. All needs met in room. OT Detention Goals Detention Goals Oral Hygiene (QC): 4 Toileting Hygiene (QC): 3 Shower/Bathe Self (QC): 3 Upper Body Dressing (QC): 4 Lower Body Dressing (QC): 3 On/Off Footwear (QC): 3 1=Demonstrate adherence to instructed precautions during ADL tasks. 2=Patient will verbalize/demonstrate understanding of assistive devices/modifications for ADL. 3=Patient will improve strength/tolerance for activity to enable patient to perform ADL's. OT Education/Plan Problem List/Assessment Assessment: Decreased Activ Tolerance, Decreased UE Strength, Impaired Self- Care Skills Discharge Recommendations Plan/Recommendations: Continue POC Treatment Plan/Plan of Care Patient would benefit from OT for education, treatment and training to promote independence in ADL's, mobility, safety and/or upper extremity function for ADL's. Plan of Care: ADL Retraining, Functional Mobility, Group Exercise/Act as Ind, UE Funct Exercise/Act, UE Neuromus Re-Ed/Coord Treatment Duration: Mar 31, 2021 Frequency: 5 times per week Estimated Hrs Per Day: .25 hour per day Rehab Potential: Guarded Time/GCodes Start Time: 10:30 Stop Time: 11:00 Total Time Billed (hr/min): 30 Billed Treatment Time 1 visit-FA 1 (10 min) EX 1 (20 min) ALVARO SHORT Mar 18, 2021 11:34
--- NOTE | 2021-03-18 11:51 | Physical Therapy Daily Note ---
PT Daily Note-Current Subjective Patient in bed pre tx, agrees to PT, continues to have headache. Appearance Patient in bed post tx with nurse call, phone, tray, all needs met, bed alarm on. Mental Status Patient Orientation: Person, Place, Situation Transfers SCALE: Activities may be completed with or without assistive devices. 9-Exmfpriptx-pkkxhpy completes the activity by him/herself with no assistance from a helper. 5-Set-up or Clean-up Assistance-helper sets up or cleans up; patient completes activity. [place] assists only prior to or following the activity. 4-Supervision or Touching Assistance-helper provides verbal cues and/or touching/steadying and/or contact guard assistance as patient completes activity. Assistance may be provided throughout the activity or intermittently. 3-Partial/Moderate Assistance-helper does LESS THAN HALF the effort. [place] lifts, holds or supports trunk or limbs, but provides less than half the effort. 2-Substantial/Maximal Assistance-helper does MORE THAN HALF the effort. [place] lifts or holds trunk or limbs and provides more than half the effort. 2-Fwycjlrka-icatvu does ALL the effort. Patient does none of the effort to complete the activity. Or, the assistance of 2 or more helpers is required for the patient to complete the activity. If activity was not attempted, code reason: 7-Patient Refused. 9-Not Applicable-not attempted and the patient did not perform the activity before the current illness, exacerbation or injury. 10-Not Attempted due to Environmental Limitations-(lack of equipment, weather restraints, etc.). 88-Not Attempted due to Medical Conditions or Safety Concerns. Roll Left & Right (QC): 4 Sit to Lying (QC): 4 Lying to Sitting/Side of Bed(Q: 4 Sit to Stand (QC): 3 SBA with supine <-> sit, min/mod assist with sit <-> stand. Patient was able to stand twice for about 2 min each time, the first time he was able to take sidesteps for about 3' to the right and left before needing to sit. The second time he took sidesteps to the left for about 3' and then performed 10 mini- squats before needing to sit. Exercises Standing: Mini squats Standing Reps: 10 Treatments bed mobility, standing, functional strengthening Assessment Current Status: Poor Progress Patient made a little progress but overall he is making poor progress. Patient continues to have knee buckling and poor balance. He has poor safety awareness and is a high fall risk. PT Senior Care Goals Mine Inspector Goals PT Senior Care Goals Time Frame: Mar 21, 2021 Roll Left & Right (QC): 6 Sit to Lying (QC): 3 Lying-Sitting on Side/Bed(QC): 3 Sit to Stand (QC): 3 Chair/Oim-ae-Adcsh Xfer(QC): 3 PT Plan Problem List Problem List: Activity Tolerance, Functional Strength, Safety, Balance, Gait, Transfer, Bed Mobility, ROM Treatment/Plan Treatment Plan: Continue Plan of Care Treatment Plan: Bed Mobility, Education, Functional Activity [place], Functional Strength, Gait, Safety, Therapeutic Exercise, Transfers Treatment Duration: Mar 21, 2021 Frequency: 6 times per week Estimated Hrs Per Day: .25 hour per day Patient and/or Family Agrees t: Yes Safety Risks/Education Patient Education: Gait Training, Transfer Techniques, Correct Positioning, Safety Issues Teaching Recipient: Patient Teaching Methods: Demonstration, Discussion Response to Teaching: Reinforcement Needed Time/GCodes Time In: 1110 Time Out: 1123 Total Billed Treatment Time: 13 Total Billed Treatment 1 visit FA 13CHONG PUENTE PT Mar 18, 2021 11:51
[2021-03-18] MEDS: ACETAMINOPHEN 500 MG TAB (TYLENOL) PO PRN (13:27)
--- NOTE | 2021-03-18 14:50 | Progress Note - Hospitalist ---
Subjective HPI/CC On Admission Date Seen by Provider: Mar 18, 2021 Time Seen by Provider: 14:48 Patient is 66-year-old male with a past medical history of alcohol abuse, stroke, and on disability for "my body is broken" who presented to the emergency department due to a fall. He is a very poor historian and states he is having memory issues and doesn't recall all of the events that led him to the hospital. He is very vague in his details as well. Apparently he was in the emergency room multiple times this week due to alcohol intoxication and falls. He left AGAINST MEDICAL ADVICE at least once. He believes to think that he was here and was found to have a hip fracture that was missed. Reviewing records that does not appear to be the case. He complains of a pounding headache. He had a CT of his head in the emergency room that was negative for any acute findings. While in CT there was concern for seizure-like activity. Patient states he remembers this entire event but is convinced it was a seizure. He denies any history of seizures. He does have longstanding alcohol use but has gone days and possibly even weeks without drinking and has never had withdrawal symptoms per his report. He states his last drink was yesterday at 3:00 in the morning. His alcohol level at 8 AM yesterday morning was 173. He complains of nausea and vomiting. Despite this he would like to advance his diet. We discussed how this would not make sense and he agrees to continue on clears for now. He states he would like to stay in the hospital for a few days and get everything figured out. I informed him that that is not the goal of being in the hospital but that we'll work on getting his gait steadier and hopefully through withdrawal safely. I believe he is currently homeless as he previously lived with his sister but stated he left as his wrhypqp-zz-rjw and he "did not see eye to eye." He could not tell me an address of where he lives. We discussed plan to transfer out of the ICU if he does well. He did not like this plan and would like to stay in the ICU despite not needing any ICU level of care. I informed him that this was not possible either and that he will go to the bed that is most appropriate for his medical status. He wants to know why his memory is foggy. We discussed that he has had multiple falls and likely has a concussion along with long-term alcohol use being the most likely etiology of his symptoms. He disagrees. He states he does drink like this his whole life and never had problems. He is unable to quantify how much he drinks daily for me. Subjective/Events-last exam Patient reports persistent headache. Did slightly better with therapy. No other complaints. Objective Exam Vital Signs Vital Signs Date Time Temp Pulse Resp B/P (MAP) Pulse Ox O2 Delivery O2 Flow Rate FiO2 03/18/21 09:00 Room Air 03/18/21 07:45 35.6 57 16 162/90 96 03/17/21 09:00 1.00 Capillary Refill : Less Than 3 Seconds General Appearance: No Apparent Distress, Chronically ill Respiratory: Lungs Clear, No Respiratory Distress Cardiovascular: Regular Rate, Rhythm, No Murmur Neurologic/Psychiatric: Alert, Oriented x3 Results/Procedures Lab Patient resulted labs reviewed. Imaging: Reviewed Imaging Report Assessment/Plan Assessment and Plan Assess & Plan/Chief Complaint Alcohol Withdrawal Possible seizure Falls concussion Continue on CIWA protocol Only needing oral ativan and less so Last drink the day of admission Denies history of withdrawals PT/OT developmental services worker consulted given poor social situation Referral sent to [facility]- they do not have a male bed Referrals sent elsewhere, but also pursuing placement at [facility] apartments with as he continues to improve Diagnosis/Problems Diagnosis/Problems (1) Contusion of right hand Status: Acute Qualifiers: Encounter type: initial encounter Qualified Codes: S60.221A - Contusion of right hand, initial encounter (2) Alcohol withdrawal Status: Acute Qualifiers: Complication of substance-induced condition: with unspecified complication Qualified Codes: F10.239 - Alcohol dependence with withdrawal, unspecified (3) Concussion Status: Acute Qualifiers: Encounter type: initial encounter Loss of consciousness presence/duration: with LOC of 30 min or less Qualified Codes: S06.0X1A - Concussion with loss of consciousness of 30 minutes or less, initial encounter (4) Alcohol abuse Status: Acute Clinical Quality Measures AMI/AHF: ASA po Prior to arrival: ANUSHA Guzman MD Mar 18, 2021 14:50
--- NOTE | 2021-03-18 15:28 | D/C HH Face to Face Order ---
D/C Face to Face Orders Instructions for Patient Via [facility], Patient Instructions/FollowUp: Please continue to take your medications as written. Please follow up with your primary care doctor to follow up this hospital stay. Physician to follow Patient: Adelfo Garcia NP Discharge Diet for Home: No Restrictions Patient Data-Allergies,Ht & Wt Patient Allergies: Coded Allergies: Penicillins (Verified Allergy, Unknown, 10/17/13) morphine (Verified Allergy, Unknown, pt has received Hydromorphone in the past, 03/18/21) Height (Feet): 6 Height (Inches): 1.00 Weight (Pounds): 211 Weight (Ounces): 0.5 Home Health Need/Face to Face Date of Face to Face: Mar 18, 2021 Clinical Findings: Generalized weakness and fatigue I have seen Pt lfla-in-xsvi: Yes Discharged To: Home Diagnosis/Conditions: Debility, falls, concussion, alcohol abuse Patient is Homebound due to: [place] fall risk due to instabilty, Muscle weakness Homebound Status Due to the above stated illness, injury or surgical procedure (medical condition or diagnosis) and associated clinical findings, the patient is home bound because of his/her inability to leave home except with aid of a supportive device and/or person AND leaving the home requires a considerable and taxing effort or is medically contraindicated. Pt req the following assistanc: Aid of another person, [facility] Nursing Orders Home Health Services Order: Nursing Services, Radiology Receptionist-Evaluate & Treat, Physical Therapy-Evaluate & Treat Home Health Infusion Therapy Line Start Date: Mar 13, 2021 Therapy Orders Therapy Orders: OT (must have SN or PT order), Physical Therapy Therapy Specific Orders: Eval assistive deivces, Teach enviro modifications/safety, Gait training, Increase strength/endurance Certify Stmt I certify that this patient is under my care and that I, a nurse practitioner or a physician; a audiology assistant working with me, had a face to face encounter that - meets the physician face to face encounter requirements with this patient as dated. ANUSHA FLORES MD Mar 18, 2021 15:28
[2021-03-18] MEDS: hydrOXYzine (ATARAX) 10 MG TAB PO PRN (15:59)
[2021-03-18] MEDS: MELATONIN 3 MG TABLET PO SCH (19:40)
[2021-03-18] MEDS: AMITRIPTYLINE 25 MG (ELAVIL) TAB PO SCH (19:40)
[2021-03-18] MEDS: HYDROcodone/APAP 5 MG/325 MG (LORTAB) TAB PO PRN (19:45)
[2021-03-18] MEDS ORDERED: hydrALAZINE (APESOLINE) 20 MG/ML VIAL IV PRN (23:45)
[2021-03-19] MEDS: IBUPROFEN 600 MG (MOTRIN) TAB PO PRN ×2 (09:16→16:05)
[2021-03-19] MEDS: PANTOPRAZOLE 40 MG (PROTONIX) TAB PO SCH (09:16)
--- NOTE | 2021-03-19 11:25 | Progress Note - Hospitalist ---
Subjective HPI/CC On Admission Date Seen by Provider: Mar 19, 2021 Time Seen by Provider: 11:19 Patient is 66-year-old male with a past medical history of alcohol abuse, stroke, and on disability for "my body is broken" who presented to the emergency department due to a fall. He is a very poor historian and states he is having memory issues and doesn't recall all of the events that led him to the hospital. He is very vague in his details as well. Apparently he was in the emergency room multiple times this week due to alcohol intoxication and falls. He left AGAINST MEDICAL ADVICE at least once. He believes to think that he was here and was found to have a hip fracture that was missed. Reviewing records that does not appear to be the case. He complains of a pounding headache. He had a CT of his head in the emergency room that was negative for any acute findings. While in CT there was concern for seizure-like activity. Patient states he remembers this entire event but is convinced it was a seizure. He denies any history of seizures. He does have longstanding alcohol use but has gone days and possibly even weeks without drinking and has never had withdrawal symptoms per his report. He states his last drink was yesterday at 3:00 in the morning. His alcohol level at 8 AM yesterday morning was 173. He complains of nausea and vomiting. Despite this he would like to advance his diet. We discussed how this would not make sense and he agrees to continue on clears for now. He states he would like to stay in the hospital for a few days and get everything figured out. I informed him that that is not the goal of being in the hospital but that we'll work on getting his gait steadier and hopefully through withdrawal safely. I believe he is currently homeless as he previously lived with his sister but stated he left as his hadirrz-dp-twm and he "did not see eye to eye." He could not tell me an address of where he lives. We discussed plan to transfer out of the ICU if he does well. He did not like this plan and would like to stay in the ICU despite not needing any ICU level of care. I informed him that this was not possible either and that he will go to the bed that is most appropriate for his medical status. He wants to know why his memory is foggy. We discussed that he has had multiple falls and likely has a concussion along with long-term alcohol use being the most likely etiology of his symptoms. He disagrees. He states he does drink like this his whole life and never had problems. He is unable to quantify how much he drinks daily for me. Subjective/Events-last exam Patient has simialr complaints regarding his headache and discharge planning even though he was updated on plan by SW and his sister yesterday. I am unsure if he is forgetful or being somewhat manipulative. He also complains that he has not gotten any treatment for hid headache today despite it being given roughly 15 minutes before I was in the room. Objective Exam Vital Signs Vital Signs Date Time Temp Pulse Resp B/P (MAP) Pulse Ox O2 Delivery O2 Flow Rate FiO2 03/19/21 08:00 35.6 80 16 150/94 98 Room Air 03/17/21 09:00 1.00 Capillary Refill : Less Than 3 Seconds General Appearance: No Apparent Distress, Chronically ill Respiratory: Lungs Clear, No Respiratory Distress Cardiovascular: Regular Rate, Rhythm, No Murmur Neurologic/Psychiatric: Alert, Oriented x3 Results/Procedures Lab Patient resulted labs reviewed. Imaging: Reviewed Imaging Report Assessment/Plan Assessment and Plan Assess & Plan/Chief Complaint Alcohol Withdrawal Possible seizure Falls concussion Continue on CIWA protocol Only needing oral ativan and less so, DC IV ativan Last drink the day of admission Denies history of withdrawals PT/OT visitor services representative consulted given poor social situation Referral sent to [facility]- they do not have a male bed Continue PT/OT Hopeful for DC straight to [facility] with if he continued to improve Diagnosis/Problems Diagnosis/Problems (1) Contusion of right hand Status: Acute Qualifiers: Encounter type: initial encounter Qualified Codes: S60.221A - Contusion of right hand, initial encounter (2) Alcohol withdrawal Status: Acute Qualifiers: Complication of substance-induced condition: with unspecified complication Qualified Codes: F10.239 - Alcohol dependence with withdrawal, unspecified (3) Concussion Status: Acute Qualifiers: Encounter type: initial encounter Loss of consciousness presence/duration: with LOC of 30 min or less Qualified Codes: S06.0X1A - Concussion with loss of consciousness of 30 minutes or less, initial encounter (4) Alcohol abuse Status: Acute Clinical Quality Measures AMI/AHF: ASA po Prior to arrival: No MARK,ANUSHA M MD Mar 19, 2021 11:24
--- NOTE | 2021-03-19 11:40 | Physical Therapy Daily Note ---
PT Daily Note-Current Subjective Pt. in bed, states he hasn't had any pain medicine yet and does not want to sit up in chair. He does agree to stand at edge of bed. No objective pain rating given. Mental Status Patient Orientation: Person, Place, Time, Situation Transfers SCALE: Activities may be completed with or without assistive devices. 7-Lpihqfwcwc-klexxrz completes the activity by him/herself with no assistance from a helper. 5-Set-up or Clean-up Assistance-helper sets up or cleans up; patient completes activity. [place] assists only prior to or following the activity. 4-Supervision or Touching Assistance-helper provides verbal cues and/or touchi ng/steadying and/or contact guard assistance as patient completes activity. Assistance may be provided throughout the activity or intermittently. 3-Partial/Moderate Assistance-helper does LESS THAN HALF the effort. [place] lifts, holds or supports trunk or limbs, but provides less than half the effort. 2-Substantial/Maximal Assistance-helper does MORE THAN HALF the effort. [place] lifts or holds trunk or limbs and provides more than half the effort. 2-Bxzlxffcg-jokvau does ALL the effort. Patient does none of the effort to complete the activity. Or, the assistance of 2 or more helpers is required for the patient to complete the activity. If activity was not attempted, code reason: 7-Patient Refused. 9-Not Applicable-not attempted and the patient did not perform the activity before the current illness, exacerbation or injury. 10-Not Attempted due to Environmental Limitations-(lack of equipment, weather restraints, etc.). 88-Not Attempted due to Medical Conditions or Safety Concerns. Sit to Lying (QC): 4 Lying to Sitting/Side of Bed(Q: 6 Sit to Stand (QC): 4 Gait Training Does the Patient Walk?: Yes Distance: approximately 20 sidesteps at edge of bed Gait Assistive Device: Cane Single Point SPC and PLANNING ASSISTANT, CGA Treatments sidestepping at edge of bed, transfers Assessment Current Status: Good Progress Pt. continues to c/o dizziness with upright activities. He does well with transfers but no ambulation away from bedside due to dizziness and fear of "blacking out." Pt. occasionally needed min A with balance during sidestepping. Pt. returned to supine position, nursing notified of patient request for pain meds; all needs met post session. PT News Director Goals News Director Goals PT Senior Living Goals Time Frame: Mar 21, 2021 Roll Left & Right (QC): 6 Sit to Lying (QC): 3 Lying-Sitting on Side/Bed(QC): 3 Sit to Stand (QC): 3 Chair/Yrg-hq-Sjlwr Xfer(QC): 3 PT Plan Treatment/Plan Treatment Plan: Continue Plan of Care Treatment Plan: Bed Mobility, Education, Functional Activity [place], Functional Strength, Gait, Safety, Therapeutic Exercise, Transfers Treatment Duration: Mar 21, 2021 Frequency: 6 times per week Estimated Hrs Per Day: .25 hour per day Patient and/or Family Agrees t: Yes Time/GCodes Time In: 0852 Time Out: 0907 Total Billed Treatment Time: 15 Total Billed Treatment 1, FA 15' DOC DURAND PT Mar 19, 2021 11:40
[2021-03-19] MEDS: ACETAMINOPHEN 500 MG TAB (TYLENOL) PO PRN (19:30)
[2021-03-19] MEDS: AMITRIPTYLINE 25 MG (ELAVIL) TAB PO SCH (19:30)
[2021-03-19] MEDS: MELATONIN 3 MG TABLET PO SCH (19:30)
[2021-03-20] MEDS: IBUPROFEN 600 MG (MOTRIN) TAB PO PRN ×2 (07:45→19:36)
[2021-03-20] MEDS: PANTOPRAZOLE 40 MG (PROTONIX) TAB PO SCH (07:45)
--- NOTE | 2021-03-20 10:24 | Progress Note - Hospitalist ---
Subjective HPI/CC On Admission Date Seen by Provider: Mar 20, 2021 Time Seen by Provider: 10:20 Patient is 66-year-old male with a past medical history of alcohol abuse, stroke, and on disability for "my body is broken" who presented to the emergency department due to a fall. He is a very poor historian and states he is having memory issues and doesn't recall all of the events that led him to the hospital. He is very vague in his details as well. Apparently he was in the emergency room multiple times this week due to alcohol intoxication and falls. He left AGAINST MEDICAL ADVICE at least once. He believes to think that he was here and was found to have a hip fracture that was missed. Reviewing records that does not appear to be the case. He complains of a pounding headache. He had a CT of his head in the emergency room that was negative for any acute findings. While in CT there was concern for seizure-like activity. Patient states he remembers this entire event but is convinced it was a seizure. He denies any history of seizures. He does have longstanding alcohol use but has gone days and possibly even weeks without drinking and has never had withdrawal symptoms per his report. He states his last drink was yesterday at 3:00 in the morning. His alcohol level at 8 AM yesterday morning was 173. He complains of nausea and vomiting. Despite this he would like to advance his diet. We discussed how this would not make sense and he agrees to continue on clears for now. He states he would like to stay in the hospital for a few days and get everything figured out. I informed him that that is not the goal of being in the hospital but that we'll work on getting his gait steadier and hopefully through withdrawal safely. I believe he is currently homeless as he previously lived with his sister but stated he left as his fmorudf-fp-btr and he "did not see eye to eye." He could not tell me an address of where he lives. We discussed plan to transfer out of the ICU if he does well. He did not like this plan and would like to stay in the ICU despite not needing any ICU level of care. I informed him that this was not possible either and that he will go to the bed that is most appropriate for his medical status. He wants to know why his memory is foggy. We discussed that he has had multiple falls and likely has a concussion along with long-term alcohol use being the most likely etiology of his symptoms. He disagrees. He states he does drink like this his whole life and never had problems. He is unable to quantify how much he drinks daily for me. Subjective/Events-last exam I awoke patient from sleep when I entered room. He complains that he has not been able to sleep. He does not specifically complain of the headache today just that he is stressed and anxious. He states we are kicking him out of the hospital tomorrow but he is worried he will not be able to walk. We discussed that only the physician can place a DC order and if he is unsafe to discharge to [facility] we can't discharge there tomorrow but that NH placement will have to be pursued. He then says he thinks he can do [facility]. Objective Exam Vital Signs Vital Signs Date Time Temp Pulse Resp B/P (MAP) Pulse Ox O2 Delivery O2 Flow Rate FiO2 03/20/21 08:04 Room Air 03/20/21 07:45 35.8 59 18 136/80 95 03/17/21 09:00 1.00 Capillary Refill : Less Than 3 Seconds General Appearance: No Apparent Distress, Chronically ill Respiratory: Lungs Clear, No Respiratory Distress Cardiovascular: Regular Rate, Rhythm, No Murmur Gastrointestinal: Normal Bowel Sounds, Non Tender, Soft Neurologic/Psychiatric: Alert, Oriented x3 Results/Procedures Lab Patient resulted labs reviewed. Imaging: Reviewed Imaging Report Assessment/Plan Assessment and Plan Assess & Plan/Chief Complaint Alcohol Withdrawal Possible seizure Falls concussion Out of withdrawal window, last drink the day of admission Denies history of withdrawals PT/OT nutrition services associate consulted given poor social situation Referral sent to [facility]- they do not have a male bed Continue PT/OT Hopeful for DC straight to [facility] tower with HH if he continues to improve, if not he was informed that he will need NH placement Diagnosis/Problems Diagnosis/Problems (1) Contusion of right hand Status: Acute Qualifiers: Encounter type: initial encounter Qualified Codes: S60.221A - Contusion of right hand, initial encounter (2) Alcohol withdrawal Status: Acute Qualifiers: Complication of substance-induced condition: with unspecified complication Qualified Codes: F10.239 - Alcohol dependence with withdrawal, unspecified (3) Concussion Status: Acute Qualifiers: Encounter type: initial encounter Loss of consciousness presence/duration: with LOC of 30 min or less Qualified Codes: S06.0X1A - Concussion with loss of consciousness of 30 minutes or less, initial encounter (4) Alcohol abuse Status: Acute Clinical Quality Measures AMI/AHF: ASA po Prior to arrival: ANUSHA Guzman MD Mar 20, 2021 10:24
[2021-03-20] MEDS: MELATONIN 3 MG TABLET PO SCH (19:36)
[2021-03-20] MEDS: hydrOXYzine (ATARAX) 10 MG TAB PO PRN (19:37)
[2021-03-20] MEDS ORDERED: AMITRIPTYLINE 50 MG (ELAVIL) TAB PO SCH (21:00)
[2021-03-21] MEDS: PANTOPRAZOLE 40 MG (PROTONIX) TAB PO SCH (08:04)
[2021-03-21] MEDS: hydrOXYzine (ATARAX) 10 MG TAB PO PRN (08:04)
[2021-03-21] MEDS: HYDROcodone/APAP 5 MG/325 MG (LORTAB) TAB PO PRN (10:18)
[2021-03-21] MEDS ORDERED: AMIT50TA3 PO (11:33)
[2021-03-21] MEDS ORDERED: PANT40TA52 PO (11:33)
--- NOTE | 2021-03-21 11:49 | Physical Therapy Daily Note ---
PT Daily Note-Current Subjective Patient in recliner pre tx, agrees to PT, has no complaints of pain. Appearance Patient in recliner post tx with nurse call, phone, tray, all needs met. Mental Status Patient Orientation: Person, Place, Situation Transfers SCALE: Activities may be completed with or without assistive devices. 1-Elyaefplsg-rdzilyw completes the activity by him/herself with no assistance from a helper. 5-Set-up or Clean-up Assistance-helper sets up or cleans up; patient completes activity. [place] assists only prior to or following the activity. 4-Supervision or Touching Assistance-helper provides verbal cues and/or quang karen/steadying and/or contact guard assistance as patient completes activity. Assistance may be provided throughout the activity or intermittently. 3-Partial/Moderate Assistance-helper does LESS THAN HALF the effort. [place] lifts, holds or supports trunk or limbs, but provides less than half the effort. 2-Substantial/Maximal Assistance-helper does MORE THAN HALF the effort. [place] lifts or holds trunk or limbs and provides more than half the effort. 6-Gsamsimql-kkejct does ALL the effort. Patient does none of the effort to complete the activity. Or, the assistance of 2 or more helpers is required for the patient to complete the activity. If activity was not attempted, code reason: 7-Patient Refused. 9-Not Applicable-not attempted and the patient did not perform the activity before the current illness, exacerbation or injury. 10-Not Attempted due to Environmental Limitations-(lack of equipment, weather restraints, etc.). 88-Not Attempted due to Medical Conditions or Safety Concerns. Sit to Stand (QC): 4 Chair/Vxe-qm-Bqpsx Xfer(QC): 4 Gait Training Distance: 40' Walk 10 feet (QC): 4 Gait Persons Needed: 1 Gait Assistive Device: Cane Single Point Patient ambulated 40' with a single point cane with CGA. He ambulates very slowly, has poor balance and needs steadying assist, has occasional left knee buckling, states he is very dizzy the whole time and needs to take occasional rest breaks Treatments ambulation Assessment Current Status: Fair Progress Patient was able to ambulate really for the first time at this hospital. He is unsteady though and needs assist from another person for safety, dizzy throughout. PT Detention Goals Brass Polisher Goals PT Brass Polisher Goals Time Frame: Mar 21, 2021 Roll Left & Right (QC): 6 Sit to Lying (QC): 3 Lying-Sitting on Side/Bed(QC): 3 Sit to Stand (QC): 3 Chair/Kst-dl-Ziuzz Xfer(QC): 3 PT Plan Problem List Problem List: Activity Tolerance, Functional Strength, Safety, Balance, Gait, Transfer, Bed Mobility, ROM Treatment/Plan Treatment Plan: Continue Plan of Care Treatment Plan: Bed Mobility, Education, Functional Activity Giovanni, Functional Strength, Gait, Safety, Therapeutic Exercise, Transfers Treatment Duration: Mar 21, 2021 Frequency: 6 times per week Estimated Hrs Per Day: .25 hour per day Patient and/or Family Agrees t: Yes Safety Risks/Education Patient Education: Gait Training, Transfer Techniques, Correct Positioning, Safety Issues Teaching Recipient: Patient Teaching Methods: Demonstration, Discussion Response to Teaching: Reinforcement Needed Time/GCodes Time In: 1130 Time Out: 1142 Total Billed Treatment Time: 12 Total Billed Treatment 1 visit GT Jasmine' CHONG ROJAS PT Mar 21, 2021 11:49
--- NOTE | 2021-03-21 11:51 | Discharge Summary ---
Discharge Summary Hospital Course Was the Problem List Reviewed?: Yes Problems/Dx: (1) Contusion of right hand Status: Acute Qualifiers: Qualified Codes: S60.221A - Contusion of right hand, initial encounter (2) Alcohol withdrawal Status: Acute Qualifiers: Qualified Codes: F10.239 - Alcohol dependence with withdrawal, unspecified (3) Concussion Status: Acute Qualifiers: Qualified Codes: S06.0X1A - Concussion with loss of consciousness of 30 minutes or less, initial encounter (4) Alcohol abuse Status: Acute Hospital Course Date of Admission: Mar 14, 2021 at 12:31 Admission Diagnosis : Alcohol withdrawal Family Physician/Provider: Leroy Avendano DO Date of Discharge: 03/21/21 Discharge Diagnosis: Alcohol withdrawal, concussion, debility Hospital Course: Chivo Sharif is a 66 year old male who was admitted with alcohol withdrawal. He had multiple falls recently and suffered a consussion. He was placed on the CIWA protocol for alcohol withdrawal and received benzodiazepines to help with his withdrawal. His course was complicated by debility and he worked with physical and Occupational Therapy. Social work assisted with his case and he was able to set up new housing at the [facility]. He was discharged home with home health care. He should follow-up with his primary care physician. He was discharged in stable condition. Labs and Pending Lab Test: Microbiology 03/13/21 MRSA Screen - Final, Complete MRSA not isolated Home Meds Active Pantoprazole Sodium 40 Mg Tablet. 40 Mg PO DAILY 30 Days Amitriptyline HCl 50 Mg Tablet 50 Mg PO HS 30 Days Reported Aspirin EC (Aspirin) 81 Mg Tablet.dr 81 Mg PO DAILY Assessment/Pt Instructions Take medications as prescribed. Follow-up with your primary care physician. Return with worsening symptoms. Discharge Planning: <30 minutes discharge planning Discharge Instructions Discharge Diet: No Restrictions Activity as Tolerated: Yes Discharge Physical Examination Vital Signs Vital Signs Date Time Temp Pulse Resp B/P (MAP) Pulse Ox O2 Delivery O2 Flow Rate FiO2 03/21/21 08:00 Room Air 03/21/21 07:50 36.1 58 19 146/88 96 03/17/21 09:00 1.00 General Appearance: No Apparent Distress, WD/WN Respiratory: Lungs Clear, Normal Breath Sounds, No Respiratory Distress Cardiovascular: Regular Rate, Rhythm, No Edema, No Murmur Gastrointestinal: Normal Bowel Sounds, Non Tender, Soft Extremity: Normal Inspection, Non Tender, No Pedal Edema Skin: Normal Color, Warm/Dry Neurologic/Psychiatric: Alert, Oriented x3, No Motor/Sensory Deficits, Normal Mood/Affect Allergies: Coded Allergies: Penicillins (Verified Allergy, Unknown, 10/17/13) morphine (Verified Allergy, Unknown, pt has received Hydromorphone in the past, 03/18/21) Copy Copies To 1: LEROY AVENDANO DO Discharge Summary Date of Admission Mar 14, 2021 at 12:31 Date of Discharge Discharge Date: Mar 21, 2021 Discharge Time: 11:43 Admission Diagnosis Alcohol withdrawal Discharge Diagnosis Alcohol withdrawal, concussion, debility (1) Contusion of right hand Status: Acute Qualifiers: Qualified Codes: S60.221A - Contusion of right hand, initial encounter (2) Alcohol withdrawal Status: Acute Qualifiers: Qualified Codes: F10.239 - Alcohol dependence with withdrawal, unspecified (3) Concussion Status: Acute Qualifiers: Qualified Codes: S06.0X1A - Concussion with loss of consciousness of 30 minutes or less, initial encounter (4) Alcohol abuse Status: Acute Clinical Quality Measures AMI/AHF: ASA po Prior to arrival: SARAH Garza MD Mar 21, 2021 11:51
--- NOTE | 2021-03-21 13:42 | Occupational Ther Daily Note ---
OT Current Status-Daily Note Subjective Pt alert, sitting in recliner. Pt agrees to therapy. No c/o pain. Pt states that he is going back to his apartment today. Mental Status/Objective Patient Orientation: Person, Place, Time, Situation Attachments: IV ADL-Treatment Therapy Code Descriptions/Definitions Functional Ward Measure: 0=Not Assessed/NA 4=Minimal Assistance 1=Total Assistance 5=Supervision or Setup 2=Maximal Assistance 6=Modified Ward 3=Moderate Assistance 7=Complete IndependenceSCALE: Activities may be completed with or without assistive devices. 9-Kemulvgdce-ltavabd completes the activity by him/herself with no assistance from a helper. 5-Set-up or Clean-up Assistance-helper sets up or cleans up; patient completes activity. [place] assists only prior to or following the activity. 4-Supervision or Touching Assistance-helper provides verbal cues and/or touching/steadying and/or contact guard assistance as patient completes activity. Assistance may be provided throughout the activity or intermittently. 3-Partial/Moderate Assistance-helper does LESS THAN HALF the effort. [place] lifts, holds or supports trunk or limbs, but provides less than half the effort. 2-Substantial/Maximal Assistance-helper does MORE THAN HALF the effort. [place] lifts or holds trunk or limbs and provides more than half the effort. 5-Ugfdxinyi-powtkm does ALL the effort. Patient does none of the effort to complete the activity. Or, the assistance of 2 or more helpers is required for the patient to complete the activity. If activity was not attempted, code reason: 7-Patient Refused. 9-Not Applicable-not attempted and the patient did not perform the activity before the current illness, exacerbation or injury. 10-Not Attempted due to Environmental Limitations-(lack of equipment, weather restraints, etc.). 88-Not Attempted due to Medical Conditions or Safety Concerns. Other Treatment Pt requests to go back to bad. Pt utilized SPC to ambulate from recliner to bed. Pt able to go from sit to stand with SBA though pt reached for LONG's hand. Pt then continued to hold onto LONG's hand without wt bearing with L hand while using SPC with R hand and was able to utilize SPC to ambulate and SPT to bed. Independent with bed mobility. After therapy, pt lying in bed with call light/phone in reach. All needs met in room. OT Welfare Officer Goals Prison Goals Oral Hygiene (QC): 4 Toileting Hygiene (QC): 3 Shower/Bathe Self (QC): 3 Upper Body Dressing (QC): 4 Lower Body Dressing (QC): 3 On/Off Footwear (QC): 3 1=Demonstrate adherence to instructed precautions during ADL tasks. 2=Patient will verbalize/demonstrate understanding of assistive device s/modifications for ADL. 3=Patient will improve strength/tolerance for activity to enable patient to perform ADL's. OT Education/Plan Problem List/Assessment Assessment: Decreased Activ Tolerance, Decreased Safety Aware Discharge Recommendations Plan/Recommendations: Continue POC Treatment Plan/Plan of Care Patient would benefit from OT for education, treatment and training to promote independence in ADL's, mobility, safety and/or upper extremity function for ADL's. Plan of Care: ADL Retraining, Functional Mobility, Group Exercise/Act as Ind, UE Funct Exercise/Act, UE Neuromus Re-Ed/Coord Treatment Duration: Mar 31, 2021 Frequency: 5 times per week Estimated Hrs Per Day: .25 hour per day Rehab Potential: Guarded Time/GCodes Start Time: 13:30 Stop Time: 13:40 Total Time Billed (hr/min): 10 Billed Treatment Time 1 visit-FA 1 (10 min) ALVARO SHORT Mar 21, 2021 13:42
[2021-03-21 17:30] VITALS: BP 146/88
== END 2021-03-21 17:30 | disposition home health service (06) | DRG 89 ==
LOC: EDUNIT# 08:01 → ER 08:01 → CSD 11:25 → ICU 11:26 → OBSVTOIN 03-14 12:31 → 4TH 03-15 19:14
PROVIDERS: ADMIT Internal Medicine; ATTEND Internal Medicine
DX: S06.0X9A Concussion with loss of consciousness of unspecified duration, initial encounter (principal); F10.239 Alcohol dependence with withdrawal, unspecified; I69.354 Hemiplegia and hemiparesis following cerebral infarction affecting left non-dominant side; F10.229 Alcohol dependence with intoxication, unspecified; Y90.6 Blood alcohol level of 120-199 mg/100 ml; R40.2412 Glasgow coma scale score 13-15, at arrival to emergency department; Z91.81 History of falling; S00.11XA Contusion of right eyelid and periocular area, initial encounter; Z20.822 Contact with and (suspected) exposure to COVID-19; S60.221A Contusion of right hand, initial encounter; S00.31XA Abrasion of nose, initial encounter; F17.210 Nicotine dependence, cigarettes, uncomplicated; F17.220 Nicotine dependence, chewing tobacco, uncomplicated; M19.91 Primary osteoarthritis, unspecified site; Z79.82 Long term (current) use of aspirin; Z88.6 Allergy status to analgesic agent; Z88.0 Allergy status to penicillin; W19.XXXA Unspecified fall, initial encounter
CPT/HCPCS: 36415; 70450; 71045; 71260; 72125; 73130; 74177; 80048; 80053; 80061; 80320; 83690; 83735; 83874; 84100; 84484; 85025; 85027; 85610; 85730; 87081; 87636; 93005; 93041; 96361; 96374; 96375

== ENCOUNTER 2021-04-28 10:21 | Emergency (ER) | payer MEDICARE ==
[~2021-04-28] VITALS: Ht 187 cm; Wt 99.7 kg
[~2021-04-28 10:21] MED LIST changes: +AMIT50TA3 PO; +ASPI-1238 PO; +PANT40TA52 PO
[2021-04-28] MEDS ORDERED: NITROGLYCERIN 0.4 MG SL TABS BTL 25'S SL ONE (10:34)
[2021-04-28] MEDS: NITROGLYCERIN 0.4 MG SL TABS BTL 25'S SL PRN ×2 (10:42→10:43)
[2021-04-28 10:49] LABS: BASOPHILS % (AUTO) 1 % (0-10); EOSINOPHILS # (AUTO) 0.1 10^3/uL (0.0-0.3); EOSINOPHILS % (AUTO) 1 % (0-10); HEMATOCRIT 47 % (40-54); HEMOGLOBIN 15.4 g/dL (13.3-17.7); LYMPHOCYTES % (AUTO) 21 % (12-44); MEAN CORPUSCULAR HEMOGLOBIN 33 pg (25-34); MEAN CORPUSCULAR HGB CONC 33 g/dL (32-36); MEAN CORPUSCULAR VOLUME 102 fL (80-99); MEAN PLATELET VOLUME 11.2 fL (9.0-12.2); MONOCYTES # (AUTO) 0.4 X 10^3 (0.0-1.0); MONOCYTES % (AUTO) 7 % (0-12); NEUTROPHILS # (AUTO) 3.5 X 10^3 (1.8-7.8); NEUTROPHILS % (AUTO) 70 % (42-75); PLATELET COUNT 131 10^3/uL (130-400)
[2021-04-28 10:51] LABS: CALCIUM 8.4 MG/DL (8.5-10.1)
[2021-04-28 10:54] LABS: BILIRUBIN,TOTAL 0.6 MG/DL (0.1-1.0)
[2021-04-28 10:57] LABS: CREATININE SERUM 0.77 MG/DL (0.60-1.30)
[2021-04-28 10:59] LABS: INR 0.9 (0.8-1.4); PROTHROMBIN TIME PATIENT 12.9 SEC (12.2-14.7)
[2021-04-28] MEDS ORDERED: DEXTROSE 50% 50 ML (IMS) SYR IV ONE (11:00)
--- NOTE | 2021-04-28 11:05 | Diagnostic Imaging Report ---
INDICATION: Chest pain. TIME OF EXAM: 10:54 a.m. COMPARISON: Comparison is made with prior chest from 03/13/2021. FINDINGS: Heart size is stable. Lungs are clear. No infiltrates are identified. There is no evidence of congestive failure. No effusion or pneumothorax is detected. IMPRESSION: No acute cardiopulmonary process is detected. Dictated by: Dictated on workstation # [id number]
[2021-04-28] MEDS ORDERED: CATHETER FLUSH 10 ML SYR IV PRN (11:15)
[2021-04-28] MEDS ORDERED: NS 100 ML (IVPB) BAG IV ONE (11:15)
[2021-04-28] MEDS ORDERED: HOLD METFORMIN - RECEIVED CONTRAST 20 ML VIAL IV SCH ×2 (11:15)
[2021-04-28] MEDS ORDERED: IOHEXOL 350 MG/ML 100 ML (OMNIPAQUE 350) VIAL IV ONE (11:15)
[2021-04-28] MEDS ORDERED: IOHEXOL 350 MG/ML 150 ML (OMNIPAQUE 350) VIAL IV ONE (11:15)
--- NOTE | 2021-04-28 11:28 | Diagnostic Imaging Report ---
PROCEDURE: CT head wo r/o stroke. TECHNIQUE: Multiple contiguous axial images were obtained through the brain without the use of intravenous contrast. Auto Exposure Controls were utilized during the CT exam to meet ALARA standards for radiation dose reduction. INDICATION: Left-sided weakness. Comparison is made with a recent head CT from 03/13/2021. FINDINGS: The ventricular size and sulcal pattern are stable. There is no sulcal effacement. No midline shift is identified. No acute intra-axial or extra-axial hemorrhage is detected. The cisterns are patent. There is some mucosal thickening of ethmoid air cells. Otherwise paranasal sinuses appear clear. IMPRESSION: No acute intracranial process is detected. Results were called to Dr. Epps of the emergency Department 11:25 AM Dictated by: Dictated on workstation # [id number]
[2021-04-28] MEDS ORDERED: fentaNYL INJ 100 MCG/2 ML AMP IVP ONE (11:45)
[2021-04-28] MEDS ORDERED: ONDANSETRON 4 MG/2 ML (SDV) Z0FRAN IVP ONE (12:00)
[2021-04-28] MEDS ORDERED: NS IV 1000 ML 1,000 ML IV SCH (12:00)
[2021-04-28] MEDS ORDERED: LORazepam INJ 2 MG/ML (ATIVAN) VIAL IVP ONE ×2 (12:00→16:45)
--- NOTE | 2021-04-28 12:00 | ED Chest Pain ---
General Chief Complaint: Chest Pain Stated Complaint: CP Nursing Triage Note: PT ARRIVES TO ER WITH C/O CP FOR TWO DAYS, L ARM AND LEG NUMBNESS AND WEAKNESS AND BLURRY VISION. PT SAID HE STOPPED TAKING HIS METOPROLOL ABOUT 1 WEEK AGO BECAUSE IT MADE HIM SICK TO HIS STOMACH Source: patient, old records Exam Limitations: no limitations History of Present Illness Date Seen by Provider: Apr 28, 2021 Time Seen by Provider: 10:22 Initial Comments "Melissa" is a 66-year-old man presents to the emergency room via EMS from his apartment where his home health nurse found him to be experiencing chest pain and an exacerbation of left-sided weakness compared to his baseline chronic left-sided weakness. Patient is a poor historian and cannot elaborate when the symptoms started. His home health nurse comes once a week, so she is not able to help with timing either. Therefore his last known well time is unknown. This patient is known to me from prior visit, and his left-sided weakness does appear to be worse. He also seems to have left-sided facial droop which I do not recall from prior visit. Stroke activation was therefore paged. Patient denies any fall or other trauma that he is aware of. He doesn't drink alcohol regularly and states his last consumption was last night. He does have tenderness to palpation of the left upper chest where he complains of the pain. Patient states he did not really want to come to the emergency room, but his home health nurse called EMS. EMS reports blood sugar was 69. 25 g of D50 is being administered. Patient's home health nurse, Nicole, states she does not believe he is compliant with his medications. Patient did admit he had not been taking his metoprolol. Allergies and Home Medications Allergies Coded Allergies: Penicillins (Verified Allergy, Unknown, 10/17/13) morphine (Verified Allergy, Unknown, pt has received Hydromorphone in the past, 03/18/21) Patient Home Medication List Home Medication List Reviewed: Yes Amitriptyline HCl (Amitriptyline HCl) 50 Mg Tablet, 50 MG PO HS Prescribed by: SARAH MANRIQUEZ on 03/21/21 1133 Aspirin (Aspirin EC) 81 Mg Tablet., 81 MG PO DAILY, (Reported) Entered as Reported by: AURORA GUAMAN on 03/15/21 0959 Pantoprazole Sodium (Pantoprazole Sodium) 40 Mg Tablet.dr, 40 MG PO DAILY Prescribed by: SARAH MANRIQUEZ on 03/21/21 1133 NIH Stroke Scale Assessment Level of Consciousness: 0=Alert (0), Level of Consciousness-Questions: 0=Answers both month/age (0), LOC Commands: 0=Performs both tasks (0), Visual Fuller: 1=Partial hemianopia (1), Facial Movement (Facial Paresis): 1=Minor paralysis (1), Motor Function-Arms Right: 0=No drift (0), Motor Function-Arms Left: 1=Drift (1), Motor Function-Legs Right: 0=No drift (0), Motor Function- Legs Left: 3=No effort/gravity (3), Limb Ataxia: 1=Present in one limb (1), Sensory: 1=Mild to Moderate loss (1), Best Language: 0=No aphasia (0), Dysarthria: 0=Normal (0), Extinction & Inattention: 0=No abnormality (0), Total: 8 Review of Systems Review of Systems Constitutional: see HPI; No fever; weakness EENTM: No Symptoms Reported Respiratory: No Symptoms Reported Cardiovascular: See HPI Gastrointestinal: No Symptoms Reported Genitourinary: No Symptoms Reported Musculoskeletal: see HPI Skin: no symptoms reported Psychiatric/Neurological: See HPI Endocrine: No Symptoms Reported Hematologic/Lymphatic: No Symptoms Reported Past Ezwfyim-Jefbgh-Lqwxyy Hx Patient Social History Tobacco Use?: Yes Tobacco type used: Cigarettes Smoking Status: Current Someday Smoker Substance use?: No Alcohol Use?: Yes Alcohol type: Hard Liquor Alcohol Frequency: Once in a while Immunizations Up To Date Tetanus Booster (TDap): Less than 5yrs PED Vaccines UTD: No Influenza Vaccine Up-to-Date: No; Not Current First/Initial COVID19 Vaccinat: 02/04/21 Second COVID19 Vaccination Loc: 02/18/21 Past Medical History Surgery/Hospitalization HX: PATIENT UNSURE Surgeries: Yes Orthopedic Respiratory: Yes (History of traumatic pneumothorax) Asthma Cardiac: No Neurological: Yes 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 0.5oz. [id number]; 28.00 BMI Method:Stated General Appearance: WD/WN, Mild Distress HEENT: PERRL/EOMI, Normal ENT Inspection Neck: Normal Inspection; No JVD Respiratory: Lungs Clear, Normal Breath Sounds, No Accessory Muscle Use, Other (Left upper anterior chest tender to palpation) Cardiovascular: Regular Rate, Rhythm, No Edema, No Murmur Gastrointestinal: Normal Bowel Sounds, Non Tender, Soft Extremity: Normal Inspection, No Pedal Edema Neurologic/Psychiatric: Alert, Oriented x3, No Motor/Sensory Deficits, Normal Mood/Affect, lead former II-XII Norm as Tested Skin: Normal Color, Warm/Dry Progress/Results/Core Measures Results/Orders Lab Results Laboratory Tests Test 04/28/21 10:30 04/28/21 10:45 04/28/21 11:47 04/28/21 12:03 Range/Units White Blood Count 5.0 4.3-11.0 10^3/uL Red Blood Count 4.61 4.30-5.52 10^6/uL Hemoglobin 15.4 13.3-17.7 g/dL Hematocrit 47 40-54 % Mean Corpuscular Volume 102 H 80-99 fL Mean Corpuscular Hemoglobin 33 25-34 pg Mean Corpuscular Hemoglobin Concent 33 32-36 g/dL Red Cell Distribution Width 14.7 H 10.0-14.5 % Platelet Count 131 130-400 10^3/uL Mean Platelet Volume 11.2 9.0-12.2 fL Immature Granulocyte % (Auto) 0 % Neutrophils (%) (Auto) 70 42-75 % Lymphocytes (%) (Auto) 21 12-44 % Monocytes (%) (Auto) 7 0-12 % Eosinophils (%) (Auto) 1 0-10 % Basophils (%) (Auto) 1 0-10 % Neutrophils # (Auto) 3.5 1.8-7.8 X 10^3 Lymphocytes # (Auto) 1.0 1.0-4.0 X 10^3 Monocytes # (Auto) 0.4 0.0-1.0 X 10^3 Eosinophils # (Auto) 0.1 0.0-0.3 10^3/uL Basophils # (Auto) 0.0 0.0-0.1 10^3/uL Immature Granulocyte # (Auto) 0.0 0.0-0.1 10^3/uL Prothrombin Time 12.9 12.2-14.7 SEC INR Comment 0.9 0.8-1.4 Activated Partial Thromboplast Time 24 24-35 SEC Sodium Level 143 135-145 MMOL/L Potassium Level 4.0 3.6-5.0 MMOL/L Chloride Level 107 98-107 MMOL/L Carbon Dioxide Level 22 21-32 MMOL/L Anion Gap 14 5-14 MMOL/L Blood Urea Nitrogen 10 7-18 MG/DL Creatinine 0.77 0.60-1.30 MG/DL Estimat Glomerular Filtration Rate 101 BUN/Creatinine Ratio 13 Glucose Level 122 H 70-105 MG/DL Calcium Level 8.4 L 8.5-10.1 MG/DL Corrected Calcium 8.4 L 8.5-10.1 MG/DL Magnesium Level 2.0 1.6-2.4 MG/DL Total Bilirubin 0.6 0.1-1.0 MG/DL Aspartate Amino Transf (AST/SGOT) 46 H 5-34 U/L Alanine Aminotransferase (ALT/SGPT) 62 H 0-55 U/L Alkaline Phosphatase 60 40-136 U/L Myoglobin 48.4 10.0-92.0 NG/ML Troponin I 0.034 H <0.028 NG/ML Total Protein 7.0 6.4-8.2 GM/DL Albumin 4.0 3.2-4.5 GM/DL Serum Alcohol 48 H <10 MG/DL D-Dimer 0.51 H 0.00-0.49 UG/ML Urine Color YELLOW Urine Clarity CLEAR Urine pH 6.0 5-9 Urine Specific Warren 1.015 L 1.016-1.022 Urine Protein NEGATIVE NEGATIVE Urine Glucose (UA) NEGATIVE NEGATIVE Urine Ketones NEGATIVE NEGATIVE Urine Nitrite NEGATIVE NEGATIVE Urine Bilirubin NEGATIVE NEGATIVE Urine Urobilinogen 0.2 < = 1.0 MG/DL Urine Leukocyte Esterase NEGATIVE NEGATIVE Urine RBC (Auto) NEGATIVE NEGATIVE Urine RBC NONE /HPF Urine WBC 2-5 /HPF Urine Crystals PRESENT H /LPF Urine Calcium Oxalate Crystals RARE H /LPF Urine Bacteria TRACE /HPF Urine Casts NONE /LPF Urine Mucus SMALL H /LPF Urine Yeast FEW H /HPF Urine Culture Indicated NO Urine Opiates Screen NEGATIVE NEGATIVE Urine Oxycodone Screen NEGATIVE NEGATIVE Urine Methadone Screen NEGATIVE NEGATIVE Urine Propoxyphene Screen NEGATIVE NEGATIVE Urine Barbiturates Screen NEGATIVE NEGATIVE Ur Tricyclic Antidepressants Screen NEGATIVE NEGATIVE Urine Phencyclidine Screen NEGATIVE NEGATIVE Urine Amphetamines Screen NEGATIVE NEGATIVE Urine Methamphetamines Screen NEGATIVE NEGATIVE Urine Benzodiazepines Screen NEGATIVE NEGATIVE Urine Cocaine Screen NEGATIVE NEGATIVE Urine Cannabinoids Screen NEGATIVE NEGATIVE Glucometer 137 H 70-110 MG/DL Test 04/28/21 12:50 Range/Units Troponin I 0.040 H <0.028 NG/ML My Orders Orders - SALLY SHEIKH MD Cbc With Automated Diff (04/28/21 10:26) Magnesium (04/28/21 10:26) Chest 1 View, Ap/Pa Only (04/28/21 10:26) Ekg Tracing (04/28/21 10:26) Comprehensive Metabolic Panel (04/28/21 10:26) Myoglobin Serum (04/28/21 10:26) Protime With Inr (04/28/21 10:26) Partial Thromboplastin Time (04/28/21 10:26) O2 (04/28/21 10:26) Monitor-Rhythm Ecg Trace Only (04/28/21 10:26) Ed Iv/Invasive Line Start (04/28/21 10:26) Troponin I (04/28/21 10:26) Nitroglycerin 0.4 Mg Btl 25's (Nitrostat (04/28/21 10:45) Nitroglycerin 0.4 Mg Btl 25's (Nitrostat (04/28/21 10:34) Alcohol (04/28/21 10:46) Drug Screen Stat (Urine) (04/28/21 10:46) Fibrin Degradation Products (04/28/21 10:46) Ua Culture If Indicated (04/28/21 10:46) Nothing By Mouth (04/28/21 Lunch) Accucheck Stat ONCE (04/28/21 10:46) Vital Signs Stroke Patient Q15M (04/28/21 10:46) Ct Head Wo-R/O Stroke (04/28/21 10:46) Intake & Output 06,14,22 (04/28/21 10:46) Dysphagia Screening Tool (04/28/21 10:46) Ct Angio Head/Neck (04/28/21 10:46) Ct Head Perfusion W/ Contrast (04/28/21 10:46) D50w (Emergency) Syringe (Dextrose 50% 5 (04/28/21 11:00) Received Contrast (Hold Metformin- Contr (04/28/21 11:15) Sodium Chloride Flush (Catheter Flush Sy (04/28/21 11:15) Ns (Ivpb) (Sodium Chloride 0.9% Ivpb Bag (04/28/21 11:15) Iohexol Injection (Omnipaque 350 Mg/Ml 1 (04/28/21 11:15) Received Contrast (Hold Metformin- Contr (04/28/21 11:15) Fentanyl Inj (Sublimaze Injection) (04/28/21 11:45) Ondansetron Injection (Zofran Injectio (04/28/21 12:00) Lorazepam Injection (Ativan Injection) (04/28/21 12:00) Ns Iv 1000 Ml (Sodium Chloride 0.9%) (04/28/21 12:00) Troponin I (04/28/21 12:30) Ct Chest/Abdomen/Pelvis Wo (04/28/21 13:43) Lorazepam Injection (Ativan Injection) (04/28/21 16:45) Medications Given in ED Current Medications Medications Dose Ordered Sig/Yoseph Route Start Time Stop Time Status Last Admin Dose Admin Dextrose 25 ml ONCE ONCE IV 04/28/21 11:00 04/28/21 11:01 DC 04/28/21 10:53 25 ML Fentanyl Citrate 75 mcg ONCE ONCE IVP 04/28/21 11:45 04/28/21 11:46 DC 04/28/21 11:54 75 MCG Iohexol 150 ml ONCE ONCE IV 04/28/21 11:15 04/28/21 11:16 DC 04/28/21 11:34 120 ML Lorazepam 0.5 mg ONCE ONCE IVP 04/28/21 12:00 04/28/21 12:01 DC 04/28/21 11:54 0.5 MG Lorazepam 0.5 mg ONCE ONCE IVP 04/28/21 16:45 04/28/21 16:46 DC 04/28/21 17:03 0.5 MG Nitroglycerin 0.4 mg UD PRN SL 04/28/21 10:45 04/28/21 17:49 DC 04/28/21 10:42 0.4 MG Ondansetron HCl 8 mg ONCE ONCE IVP 04/28/21 12:00 04/28/21 12:01 DC 04/28/21 11:54 8 MG Vital Signs/I&O 04/28/21 04/28/21 04/28/21 04/28/21 10: 11:59 13:04 17:45 Temp 36.4 36.4 36.4 36.4 Pulse 82 75 74 65 Resp 20 18 18 18 B/P (MAP) 170/106 (127) 151/107 151/95 172/92 Pulse Ox 94 94 94 94 O2 Delivery Room Air Room Air Blood Pressure Mean: 127 Progress Progress Note #1: Time: 15:05 Progress Note Stroke activation was paged. CT of the head was obtained and showed no evidence of hemorrhage or mass. This was followed by CT angiogram and CT perfusion study. CT angiogram was unremarkable with no evidence of large or medium vessel occlusion. The abnormalities noted on the perfusion scan were likely due to artifact given the negative CT angiogram. Chest pain was evaluated. EKG was normal. There was a minimal elevation in troponin of 0.034. A 2-hour troponin stephen minimally 0.040. Patient had received nitroglycerin x1 upon arrival which did not improve his pain. No further nitroglycerin was administered due to concern for possible stroke. Patient's chest pain has mixed features as he is tender to palpation. Although patient denies any trauma, he is prone to falls and has been admitted for concussion in the past. For this reason CT of the chest, abdomen and pelvis was obtained to rule out trauma as a cause of his chest pain. He also had some minor right lower quadrant tenderness. No significant injuries were identified. Patient had tremor, mild agitation, and hypertension. The symptoms improved with Ativan 0.5 mg IV. It is likely he has some degree of alcohol withdrawal. His last alcohol consumption was last night. Pain was additionally treated with fentanyl and his nausea was treated with Zofran. Patient has been resting comfortably during much of his ER visit. Dr. Sequeira, hospitalist who is familiar with him from prior admission, presented to the ER to evaluate him as well. She and I both agree that his left-sided weakness is significantly worse than prior. He also appears to have some left-sided facial droop which is not recalled from prior. His case was reviewed with Dr. Del Rosario, stroke neurologist at [facility]. She agrees with no thrombolytic administration because of the unknown last known well time. She also confirms there is no need for endovascular interventions given no evidence of large vessel occlusion on CT angiogram. She does recommend admission and MRI during the admission. MRI is not available at this facility until May 02. Dr. Sequeira and I discussed disposition. She does not believe he would be well served at this facility without MRI services or neurology services. Transfer will be sought. Transfer was accepted by Dr. Rutherford at [facility] in [place]. History was discussed early in the visit with his home health nurse, Nicole, who can be reached at [phone]. Patient's sister is Irasema who can be reached at [phone]. Progress Note #2: Time: 16:34 Progress Note We are awaiting bed assignment from [facility]. Patient states his pain is starting to worsen again. He also seems a bit agitated and his blood pressure is rising. He is agreeable to a repeat dose of Ativan. Initial ECG Impression Date: Apr 28, 2021 Initial ECG Impression Time: 10:20 Initial ECG Rate: 90 Initial ECG Rhythm: Normal Sinus Initial ECG Intervals: Normal Initial ECG Impression: Normal Comment Normal sinus rhythm with no ST elevation or depression. No abnormal intervals or axis deviation. Diagnostic Imaging Diagonstic Imaging: CT Plain Films/CT/US/NM/MRI: head Comments CT head viewed by me and report reviewed. See preliminary report below: NAME: AGUSTIN LOZA [facility] REC#: [id number] PT STATUS: REG ER : 1955 PHYSICIAN: SALLY SHEIKH MD ADMIT DATE: 04/28/21/ER Draft Date of Exam:04/28/21 CT HEAD WO-R/O STROKE PROCEDURE: CT head wo r/o stroke. TECHNIQUE: Multiple contiguous axial images were obtained through the brain without the use of intravenous contrast. Auto Exposure Controls were utilized during the CT exam to meet ALARA standards for radiation dose reduction. INDICATION: Left-sided weakness. Comparison is made with a recent head CT from 03/13/2021. FINDINGS: The ventricular size and sulcal pattern are stable. There is no sulcal effacement. No midline shift is identified. No acute intra-axial or extra-axial hemorrhage is detected. The cisterns are patent. There is some mucosal thickening of ethmoid air cells. Otherwise paranasal sinuses appear clear. IMPRESSION: No acute intracranial process is detected. Results were called to Dr. Epps of the emergency Department 11:25 AM Dictated on workstation # [id number] Dict: 04/28/21 1122 Trans: 04/28/21 1127 [id number] Interpreted by: MU WELLS MD Diagonstic Imaging: Xray Plain Films/CT/US/NM/MRI: chest Comments Chest x-ray viewed by me and report reviewed. See report below: NAME: AGUSTIN LOZA [facility] REC#: [id number] PT STATUS: REG ER : 1955 PHYSICIAN: SALLY SHEIKH MD ADMIT DATE: 04/28/21/ER Draft Date of Exam:04/28/21 CHEST 1 VIEW, AP/PA ONLY INDICATION: Chest pain. TIME OF EXAM: 10:54 a.m. COMPARISON: Comparison is made with prior chest from 03/13/2021. FINDINGS: Heart size is stable. Lungs are clear. No infiltrates are identified. There is no evidence of congestive failure. No effusion or pneumothorax is detected. IMPRESSION: No acute cardiopulmonary process is detected. Dictated on workstation # [id number] Dict: 04/28/21 1058 Trans: 04/28/21 1103 [facility] [id number] Interpreted by: MU WELLS MD Diagonstic Imaging: CT Plain Films/CT/US/NM/MRI: other (Angiogram head and neck) Comments CT angiogram head and neck viewed by me and report reviewed. See report below: NAME: AGUSTIN LOZA [facility] REC#: [id number] PT STATUS: REG ER : 1955 PHYSICIAN: SALLY SHEIKH MD ADMIT DATE: 04/28/21/ER Draft Date of Exam:04/28/21 CT ANGIO HEAD/NECK PROCEDURE: CT angiography of the head and CT angiography of the neck with and without contrast. TECHNIQUE: Contiguous noncontrast images were obtained from the skull base through the vertex. After intravenous contrast administration, helical CT angiography of the neck was performed. Source data was reformatted into 3D MIP projections. Delayed post contrast acquisition was also obtained. Auto Exposure Controls were utilized during the CT exam to meet ALARA standards for radiation dose reduction. INDICATION: 66-year-old male with altered mental status COMPARISONS: CT head, CT brain perfusion 04/28/2021 FINDINGS: There is a type II aortic arch. Both common carotid arteries are widely patent. There is some calcified plaque at the bifurcations but no evidence of hemodynamically significant stenosis. The cervical, high cervical, petrous, cavernous and supraclinoid segment of both ICA are normal. There is some minimal bilateral carotid siphon disease with calcific atherosclerosis but no evidence of hemodynamically significant stenosis. A1 and A2 segments of both CARL, M1, M2 and M3 trifurcation vessels both MCA are also unremarkable with no large vessel or medium vessel occlusion seen. There is distal small vessel disease noted. The vertebral arteries are codominant and are patent through the skull base. Bilateral AICA PICA complexes are seen, normal variants. Basilar artery, AICA and SCA and electronic scale subassembler are also unremarkable. Some small vessel disease is seen but no large vessel or medium vessel occlusion present. Lung apices are clear. Superior mediastinum is unremarkable. Parapharyngeal and paraspinous soft tissues are also grossly unremarkable. There is moderate to severe cervical spondylosis with multilevel hypertrophic facet changes. Reversal of cervical lordosis is most likely positional. IMPRESSION: 1. There is bilateral carotid bifurcation disease and carotid siphon disease with minimal calcific atherosclerosis but no evidence of hemodynamically significant stenosis. 2. There is no large vessel or medium vessel occlusion seen in the intragastric position. There is some small vessel disease noted. 3. The area of perfusion abnormality on the CT perfusion, most likely represents artifact since the CTA shows wide patency of the posterior circulation with some normal anatomic variation. 4. Moderate to severe cervical spondylosis. Dictated on workstation # [id number] Dict: 04/28/21 1204 Trans: 04/28/21 1219 [id number] [id number] Interpreted by: MASSIEL ALICIA MD Diagonstic Imaging: Xray Plain Films/CT/US/NM/MRI: head (Perfusion CT) Comments NAME: AGUSTIN LOZA [facility] REC#: [id number] PT STATUS: REG ER : 1955 PHYSICIAN: SALLY SHEIKH MD ADMIT DATE: 04/28/21/ER Draft Date of Exam:04/28/21 CT HEAD PERFUSION W/ CONTRAST Indication: 66-year-old male with altered mental status Comparisons: CT head 04/28/2021. TECHNIQUE: Postcontrast CT brain perfusion was obtained, and postprocessing was performed using the rapid software. FINDINGS: Patient motion limits assessment and does significantly degrade image quality and interpretability. The volume of parenchyma showing a cerebral blood flow less than 30% is 0 mL. The volume of parenchyma showing Tmax greater than 6 seconds is 17 mL. This is primarily in the distribution of the posterior circulation including the left PICA distribution and left anterior division SOLIDWORKS DESIGNER distribution. Given the significant motion, this could all be associated with motion artifact. IMPRESSION: 1. Significant motion artifact does limit assessment. 2. Although there is no suggestion of a core infarct by CT perfusion, there is suggested viable penumbra in the posterior circulation primarily in the left PICA distribution left anterior division SOLIDWORKS DESIGNER distribution. This is most likely artifact, clinical correlation is recommended including possible Wallenberg syndrome, seizure activity, short-term memory loss, brainstem symptoms. Perhaps CTA of the head and neck would be of further value. Dictated on workstation # [id number] Dict: 04/28/21 1158 Trans: 04/28/21 1213 [facility] [id number] Interpreted by: MASSIEL ALICIA MD Diagonstic Imaging: CT Plain Films/CT/US/NM/MRI: chest, abdomen, pelvis Comments CT chest, abdomen and pelvis viewed by me and report reviewed. See report below NAME: AGUSTIN LOZA [facility] REC#: [id number] PT STATUS: REG ER : 1955 PHYSICIAN: SALLY SHEIKH MD ADMIT DATE: 04/28/21/ER Signed Date of Exam:04/28/21 CT CHEST/ABDOMEN/PELVIS WO EXAMINATION: CT chest, abdomen and pelvis without intravenous contrast. TECHNIQUE: Multiple contiguous axial images were obtained through the chest, abdomen and pelvis without intravenous contrast. All CT scans use one or more of the following dose optimizing techniques: automated exposure control, MA and/or KvP adjustment based on patient size and exam type or iterative reconstruction. HISTORY: Chest and right lower quadrant abdominal pain. COMPARISON: 03/13/2021. FINDINGS: Thyroid: The thyroid is normal. Mediastinum: Heart size is normal without significant pericardial effusion. Calcifications of the aorta and coronary vessels. Thoracic aorta is normal in caliber. No suspicious lymphadenopathy. Lungs and airways: The lungs are clear without consolidation, pleural effusion, or pneumothorax. Stable 0.7 cm right lower lobe pulmonary nodule. The airways are normal. Solid organs: There is diffuse hypoattenuation of the liver compatible with hepatic steatosis. Hyperdense lesions are seen within the liver which are incompletely evaluated on this CT and previously thought to represent hemangiomas. Multiple layering hyperdense stones within the gallbladder. There is no biliary ductal dilation. Pancreas is normal. Spleen is normal. Adrenal glands are normal. The kidneys are normal without hydronephrosis. Bowel: The stomach and small bowel are normal without obstruction. The colon and appendix are normal. Peritoneum: There is no intraperitoneal free fluid or free air. There is scattered colonic diverticulosis. The appendix is normal. Vasculature: Calcification of the aorta without aneurysm. Musculoskeletal: Degenerative changes of the spine without suspicious osseous lesion or compression fracture. Stable lipoma anterior to the sternum. Pelvis: The prostate gland is normal. The urinary bladder is normal. IMPRESSION: 1. No acute abnormality in the chest, abdomen, or pelvis. 2. Stable 0.7 cm right lower lobe pulmonary nodule. Consider follow-up CT of the chest in 12 months. 3. Hepatic steatosis with stable hepatic lesions. Dictated by: Dictated on workstation # [id number] Dict: 04/28/21 1418 Trans: 04/28/211433 AS6 [id number] Interpreted by: AUSTIN DOYLE DO Electronically signed by: AUSTIN DOYLE DO 04/28/21 1434 Departure Impression Primary Impression: Chest pain Qualified Codes: R07.9 - Chest pain, unspecified Additional Impressions: Elevated troponin Left-sided weakness Alcohol dependence Qualified Codes: F10.29 - Alcohol dependence with unspecified alcohol- induced disorder Pulmonary nodule Disposition: XFER SHT-TRM HOSP Condition: Stable Transfer Transfer Reason: Exceeds level of care Time Spoke to Accepting Phy: 15:05 Transfer Progress Notes Transfer accepted by Dr. Rutherford, hospitalist at [facility] Transfer Time: 17:48 Transfer Facility: [facility] Method of Transfer: EMS Departure-Patient Inst. Referrals: TIANNA GRANADOS DO (PCP/Family) Primary Care Physician Copy Copies To 1: MELISA LAI MD Copies To 2: TIANNA GRANADOS JOSHUA T MD Apr 28, 2021 11:59
[2021-04-28 12:01] LABS: BILIRUBIN,URINE NEGATIVE (NEGATIVE); CLARITY,URINE CLEAR; COLOR,URINE YELLOW; GLUCOSE, URINE (UA) NEGATIVE (NEGATIVE); KETONES,URINE NEGATIVE (NEGATIVE); LEUKOCYTE ESTERASE ,URINE NEGATIVE (NEGATIVE); NITRITE,URINE NEGATIVE (NEGATIVE); PROTEIN,URINE NEGATIVE (NEGATIVE)
[2021-04-28 12:13] LABS: BACTERIA,URINE TRACE /HPF; CALCIUM OXALATE CRYSTALS,UR RARE /LPF
[2021-04-28 12:14] LABS: YEAST,URINE FEW /HPF
--- NOTE | 2021-04-28 12:14 | Diagnostic Imaging Report ---
Indication: 66-year-old male with altered mental status Comparisons: CT head 04/28/2021. TECHNIQUE: Postcontrast CT brain perfusion was obtained, and postprocessing was performed using the rapid software. FINDINGS: Patient motion limits assessment and does significantly degrade image quality and interpretability. The volume of parenchyma showing a cerebral blood flow less than 30% is 0 mL. The volume of parenchyma showing Tmax greater than 6 seconds is 17 mL. This is primarily in the distribution of the posterior circulation including the left PICA distribution and left anterior division BOOK JOGGER distribution. Given the significant motion, this could all be associated with motion artifact. IMPRESSION: 1. Significant motion artifact does limit assessment. 2. Although there is no suggestion of a core infarct by CT perfusion, there is suggested viable penumbra in the posterior circulation primarily in the left PICA distribution left anterior division BOOK JOGGER distribution. This is most likely artifact, clinical correlation is recommended including possible Wallenberg syndrome, seizure activity, short-term memory loss, brainstem symptoms. Perhaps CTA of the head and neck would be of further value. Dictated by: Dictated on workstation # [id number]
[2021-04-28 12:16] LABS: AMPHETAMINE SCREEN, URINE NEGATIVE (NEGATIVE); BARBITURATE SCREEN URINE NEGATIVE (NEGATIVE); BENZODIAZEPINES SCREEN URINE NEGATIVE (NEGATIVE); CANNABINOID SCREEN, URINE NEGATIVE (NEGATIVE); COCAINE SCREEN URINE NEGATIVE (NEGATIVE); METHADONE STAT NEGATIVE (NEGATIVE); METHAMPHETAMINE SCREEN URINE S NEGATIVE (NEGATIVE); OPIATE SCREEN URINE NEGATIVE (NEGATIVE); OXYCODONE STAT NEGATIVE (NEGATIVE); PROPOXYPHENE STAT NEGATIVE (NEGATIVE); TRICYCLIC ANTIDEPRESSANTS SCRE NEGATIVE (NEGATIVE)
--- NOTE | 2021-04-28 12:19 | Diagnostic Imaging Report ---
PROCEDURE: CT angiography of the head and CT angiography of the neck with and without contrast. TECHNIQUE: Contiguous noncontrast images were obtained from the skull base through the vertex. After intravenous contrast administration, helical CT angiography of the neck was performed. Source data was reformatted into 3D MIP projections. Delayed post contrast acquisition was also obtained. Auto Exposure Controls were utilized during the CT exam to meet ALARA standards for radiation dose reduction. INDICATION: 66-year-old male with altered mental status COMPARISONS: CT head, CT brain perfusion 04/28/2021 FINDINGS: There is a type II aortic arch. Both common carotid arteries are widely patent. There is some calcified plaque at the bifurcations but no evidence of hemodynamically significant stenosis. The cervical, high cervical, petrous, cavernous and supraclinoid segment of both ICA are normal. There is some minimal bilateral carotid siphon disease with calcific atherosclerosis but no evidence of hemodynamically significant stenosis. A1 and A2 segments of both CARL, M1, M2 and M3 trifurcation vessels both MCA are also unremarkable with no large vessel or medium vessel occlusion seen. There is distal small vessel disease noted. The vertebral arteries are codominant and are patent through the skull base. Bilateral AICA PICA complexes are seen, normal variants. Basilar artery, AICA and SCA and cable tool operator are also unremarkable. Some small vessel disease is seen but no large vessel or medium vessel occlusion present. Lung apices are clear. Superior mediastinum is unremarkable. Parapharyngeal and paraspinous soft tissues are also grossly unremarkable. There is moderate to severe cervical spondylosis with multilevel hypertrophic facet changes. Reversal of cervical lordosis is most likely positional. IMPRESSION: 1. There is bilateral carotid bifurcation disease and carotid siphon disease with minimal calcific atherosclerosis but no evidence of hemodynamically significant stenosis. 2. There is no large vessel or medium vessel occlusion seen in the intragastric position. There is some small vessel disease noted. 3. The area of perfusion abnormality on the CT perfusion, most likely represents artifact since the CTA shows wide patency of the posterior circulation with some normal anatomic variation. 4. Moderate to severe cervical spondylosis. Dictated by: Dictated on workstation # [id number]
--- NOTE | 2021-04-28 14:28 | Diagnostic Imaging Report ---
EXAMINATION: CT chest, abdomen and pelvis without intravenous contrast. TECHNIQUE: Multiple contiguous axial images were obtained through the chest, abdomen and pelvis without intravenous contrast. All CT scans use one or more of the following dose optimizing techniques: automated exposure control, MA and/or KvP adjustment based on patient size and exam type or iterative reconstruction. HISTORY: Chest and right lower quadrant abdominal pain. COMPARISON: 03/13/2021. FINDINGS: Thyroid: The thyroid is normal. Mediastinum: Heart size is normal without significant pericardial effusion. Calcifications of the aorta and coronary vessels. Thoracic aorta is normal in caliber. No suspicious lymphadenopathy. Lungs and airways: The lungs are clear without consolidation, pleural effusion, or pneumothorax. Stable 0.7 cm right lower lobe pulmonary nodule. The airways are normal. Solid organs: There is diffuse hypoattenuation of the liver compatible with hepatic steatosis. Hyperdense lesions are seen within the liver which are incompletely evaluated on this CT and previously thought to represent hemangiomas. Multiple layering hyperdense stones within the gallbladder. There is no biliary ductal dilation. Pancreas is normal. Spleen is normal. Adrenal glands are normal. The kidneys are normal without hydronephrosis. Bowel: The stomach and small bowel are normal without obstruction. The colon and appendix are normal. Peritoneum: There is no intraperitoneal free fluid or free air. There is scattered colonic diverticulosis. The appendix is normal. Vasculature: Calcification of the aorta without aneurysm. Musculoskeletal: Degenerative changes of the spine without suspicious osseous lesion or compression fracture. Stable lipoma anterior to the sternum. Pelvis: The prostate gland is normal. The urinary bladder is normal. IMPRESSION: 1. No acute abnormality in the chest, abdomen, or pelvis. 2. Stable 0.7 cm right lower lobe pulmonary nodule. Consider follow-up CT of the chest in 12 months. 3. Hepatic steatosis with stable hepatic lesions. Dictated by: Dictated on workstation # [id number]
[2021-04-28 17:45] VITALS: BP 172/92
== END 2021-04-28 17:48 | disposition short-term general hospital (02) ==
LOC: EDUNIT# 10:21 → ER 10:22
DX: R07.9 Chest pain, unspecified (principal); R77.8 Other specified abnormalities of plasma proteins; R53.1 Weakness; F10.20 Alcohol dependence, uncomplicated; R91.1 Solitary pulmonary nodule; J45.909 Unspecified asthma, uncomplicated; F17.210 Nicotine dependence, cigarettes, uncomplicated; Z86.73 Personal history of transient ischemic attack (TIA), and cerebral infarction without residual deficits; Z79.82 Long term (current) use of aspirin
CPT/HCPCS: 0042T; 70450; 70496; 70498; 71045; 71250; 74176; 80053; 80306; 81000; 82947; 83735; 83874; 84484; 85025; 85379; 85610; 85730; 93005; 93041; 99285; G0480; 36415; 80320

== ENCOUNTER 2021-05-27 01:57 | Emergency (ER) | payer MEDICARE ==
[~2021-05-27] VITALS: Ht 188 cm; Wt 99.7 kg
[2021-05-27 01:57] VITALS: BP 118/88
[2021-05-27] MEDS ORDERED: NITROGLYCERIN 0.4 MG SL TABS BTL 25'S SL PRN (02:15)
[2021-05-27 02:18] LABS: HEMOGLOBIN 17.9 g/dL (13.3-17.7); NEUTROPHILS % (AUTO) 60 % (42-75)
[2021-05-27 02:20] LABS: BASOPHILS % (AUTO) 1 % (0-10); EOSINOPHILS % (AUTO) 1 % (0-10); HEMATOCRIT 53 % (40-54); LYMPHOCYTES # (AUTO) 1.2 10^3/uL (1.0-4.0); LYMPHOCYTES % (AUTO) 31 % (12-44); MEAN CORPUSCULAR HEMOGLOBIN 33 pg (25-34); MEAN CORPUSCULAR HGB CONC 34 g/dL (32-36); MEAN CORPUSCULAR VOLUME 98 fL (80-99); MEAN PLATELET VOLUME 11.7 fL (9.0-12.2); MONOCYTES # (AUTO) 0.3 10^3/uL (0.0-1.0); MONOCYTES % (AUTO) 7 % (0-12); NEUTROPHILS # (AUTO) 2.4 10^3/uL (1.8-7.8); PLATELET COUNT 72 10^3/uL (130-400); WHITE BLOOD COUNT 3.9 10^3/uL (4.3-11.0)
[2021-05-27 02:41] LABS: ALBUMIN 4.2 GM/DL (3.2-4.5); BILIRUBIN,TOTAL 1.1 MG/DL (0.1-1.0); CALCIUM 8.6 MG/DL (8.5-10.1); CREATININE SERUM 0.77 MG/DL (0.60-1.30); MAGNESIUM 2.1 MG/DL (1.6-2.4); TOTAL PROTEIN 7.7 GM/DL (6.4-8.2)
--- NOTE | 2021-05-27 02:46 | ED Chest Pain ---
General Chief Complaint: Chest Pain Stated Complaint: CP Source: patient Exam Limitations: no limitations History of Present Illness Date Seen by Provider: May 27, 2021 Time Seen by Provider: 02:28 Initial Comments Patient is a 66-year-old male who presents to the emergency department today with a chief complaint of midsternal chest pain. He states he woke up with chest pain this morning and it hit him so hard it brought him to his knees. Patient denies any nausea with it but states that he felt like he could not catch his breath. He states the pain radiated into his left arm and shoulder. He states it feels better now and is not as intense. He tells me that he has had a heart attack in the past as well as a stroke in the past. The only medication he takes daily is a baby aspirin. Patient tells me that he did not have stents placed with his previous heart attack. He is a daily smoker. He is supposed to be on blood pressure medications but they make him "sick" so he does not take them. He denies any recent illnesses but states that he did think he had a fever yesterday morning. Denies productive cough. Has had his Covid vaccine. Denies any problems with bowel or bladder. No swelling in his legs. Does not wear oxygen at home. All other review of systems reviewed and negative except as stated. Timing/Duration: 1 hour Severity/Quality: moderate, sharp Location: central Radiation: arms (left shoulder and arm) ASA po SUBPOENA SERVER: No NTG SL SUBPOENA SERVER: No Associated Symptoms: shortness of breath Allergies and Home Medications Allergies Coded Allergies: Penicillins (Verified Allergy, Unknown, 10/17/13) morphine (Verified Allergy, Unknown, pt has received Hydromorphone in the past, 03/18/21) Patient Home Medication List Home Medication List Reviewed: Yes Amitriptyline HCl (Amitriptyline HCl) 50 Mg Tablet, 50 MG PO HS Prescribed by: SARAH MANRIQUEZ on 03/21/21 1133 Aspirin (Aspirin EC) 81 Mg Tablet., 81 MG PO DAILY, (Reported) Entered as Reported by: AURORA GUAMAN on 03/15/21 0959 Pantoprazole Sodium (Pantoprazole Sodium) 40 Mg Tablet., 40 MG PO DAILY Prescribed by: SARAH MANRIQUEZ on 03/21/21 1133 Review of Systems Review of Systems Constitutional: see HPI EENTM: No Symptoms Reported Respiratory: Cough, Shortness of Air Cardiovascular: Chest Pain Gastrointestinal: No Symptoms Reported Genitourinary: No Symptoms Reported Musculoskeletal: no symptoms reported Skin: no symptoms reported All Other Systems Reviewed Negative Unless Noted: Yes Past Hqitciu-Qqrswy-Qbqhmz Hx Patient Social History Tobacco Use?: Yes Tobacco type used: Cigarettes Smoking Status: Current Everyday Smoker Substance use?: No Alcohol Use?: Yes Alcohol type: Hard Liquor Alcohol Frequency: Daily Immunizations Up To Date Tetanus Booster (TDap): Less than 5yrs PED Vaccines UTD: No First/Initial COVID19 Vaccinat: 02/04/21 Second COVID19 Vaccination Loc: 02/18/21 Past Medical History Surgery/Hospitalization HX: PATIENT UNSURE Surgeries: Yes Orthopedic Respiratory: Yes (History of traumatic pneumothorax) Asthma Cardiac: No Neurological: Yes Stroke Genitourinary: No Gastrointestinal: Yes Pancreatitis, Gall Bladder Disease Musculoskeletal: Yes Back Injury, Fractures Endocrine: No HEENT: No Cancer: No Psychosocial: Yes (Alcohol dependence) Adverse Reaction/Blood Tranf: No Family Medical History History of - respiratory disease 03 FATHER (EMPHYSEMIA) GI Disease Physical Exam Vital Signs Vital Signs - First Documented 05/27/21 01:57 Temp 36.7 Pulse 96 Resp 20 B/P (MAP) 118/88 (98) Pulse Ox 92 O2 Delivery Room Air Capillary Refill : Height, Weight, BMI Height: 6'1.00" Weight: 211lbs. 0.5oz. 95.836049ol; 28.00 BMI Method:Stated General Appearance: No Apparent Distress, WD/WN HEENT: PERRL/EOMI Neck: Normal Inspection Respiratory: Lungs Clear, Normal Breath Sounds, No Accessory Muscle Use, No Respiratory Distress, Other (patient has significant tenderness to mid sternum/chest wall, to the point he grabbed my hand as I palpated his chest wall) Cardiovascular: Regular Rate, Rhythm, Normal Peripheral Pulses Gastrointestinal: Non Tender, Soft Extremity: Normal Capillary Refill, Normal Inspection, Normal Range of Motion, No Pedal Edema Neurologic/Psychiatric: Alert, Oriented x3, No Motor/Sensory Deficits, Normal Mood/Affect Skin: Normal Color, Warm/Dry Progress/Results/Core Measures Results/Orders Lab Results Laboratory Tests Test 05/27/21 02:05 Range/Units White Blood Count 3.9 L 4.3-11.0 10^3/uL Red Blood Count 5.41 4.30-5.52 10^6/uL Hemoglobin 17.9 H 13.3-17.7 g/dL Hematocrit 53 40-54 % Mean Corpuscular Volume 98 80-99 fL Mean Corpuscular Hemoglobin 33 25-34 pg Mean Corpuscular Hemoglobin Concent 34 32-36 g/dL Red Cell Distribution Width 13.9 10.0-14.5 % Platelet Count 72 L 130-400 10^3/uL Mean Platelet Volume 11.7 9.0-12.2 fL Immature Granulocyte % (Auto) 1 % Neutrophils (%) (Auto) 60 42-75 % Lymphocytes (%) (Auto) 31 12-44 % Monocytes (%) (Auto) 7 0-12 % Eosinophils (%) (Auto) 1 0-10 % Basophils (%) (Auto) 1 0-10 % Neutrophils # (Auto) 2.4 1.8-7.8 10^3/uL Lymphocytes # (Auto) 1.2 1.0-4.0 10^3/uL Monocytes # (Auto) 0.3 0.0-1.0 10^3/uL Eosinophils # (Auto) 0.0 0.0-0.3 10^3/uL Basophils # (Auto) 0.0 0.0-0.1 10^3/uL Immature Granulocyte # (Auto) 0.0 0.0-0.1 10^3/uL Percent Immature Platelet Fraction 14.5 H 0.0-7.6 % Prothrombin Time 13.0 12.2-14.7 SEC INR Comment 1.0 0.8-1.4 Activated Partial Thromboplast Time 22 L 24-35 SEC Sodium Level 141 135-145 MMOL/L Potassium Level 5.0 3.6-5.0 MMOL/L Chloride Level 102 98-107 MMOL/L Carbon Dioxide Level 16 L 21-32 MMOL/L Anion Gap 23 H 5-14 MMOL/L Blood Urea Nitrogen 12 7-18 MG/DL Creatinine 0.77 0.60-1.30 MG/DL Estimat Glomerular Filtration Rate 101 BUN/Creatinine Ratio 16 Glucose Level 72 70-105 MG/DL Calcium Level 8.6 8.5-10.1 MG/DL Corrected Calcium 8.4 L 8.5-10.1 MG/DL Magnesium Level 2.1 1.6-2.4 MG/DL Total Bilirubin 1.1 H 0.1-1.0 MG/DL Aspartate Amino Transf (AST/SGOT) 257 H 5-34 U/L Alanine Aminotransferase (ALT/SGPT) 178 H 0-55 U/L Alkaline Phosphatase 66 40-136 U/L Myoglobin 67.5 10.0-92.0 NG/ML Troponin I 0.034 H <0.028 NG/ML Total Protein 7.7 6.4-8.2 GM/DL Albumin 4.2 3.2-4.5 GM/DL My Orders Orders - LION REED MD Cbc With Automated Diff (05/27/21 02:06) Magnesium (05/27/21 02:06) Chest 1 View, Ap/Pa Only (05/27/21 02:06) Ekg Tracing (05/27/21 02:06) Comprehensive Metabolic Panel (05/27/21 02:06) Myoglobin Serum (05/27/21 02:06) Protime With Inr (05/27/21 02:06) Partial Thromboplastin Time (05/27/21 02:06) O2 (05/27/21 02:06) Monitor-Rhythm Ecg Trace Only (05/27/21 02:06) Ed Iv/Invasive Line Start (05/27/21 02:06) Troponin I (05/27/21 02:06) Nitroglycerin 0.4 Mg Btl 25's (Nitrostat (05/27/21 02:15) Ketorolac Injection (Toradol Injection) (05/27/21 03:30) Nicotine Patch (Nicoderm Patch) (05/27/21 03:30) Vital Signs/I&O 05/27/21 01:57 Temp 36.7 Pulse 96 Resp 20 B/P (MAP) 118/88 (98) Pulse Ox 92 O2 Delivery Room Air Progress Progress Note #1: Time: 04:17 Progress Note Notified by nursing staff that Chivo was getting agitated, had pulled off monitoring equipment and was requesting to leave the hospital. Patient states that he wanted to get back to his apartment and check on his things. I advised him that we were still waiting on his repeat troponin, that it was not time to have it drawn and that we needed to evaluate this lab in order to determine if he is having a heart attack. I advised him that I am also waiting on medical records from [place] to see with a found on his heart cath less than a month ago. I advised him that leaving the hospital would be a great risk for heart attack and possibly . He insisted on leaving AGAINST MEDICAL ADVICE. He ambulated from the department. Progress Note #2: Time: 05:25 Progress Note Addendum: after patient left the ER AMA, I was able to get the medical records from [place]. Patient was noted to have had an echo and chemical stress test at [place] during his hospitalization there. This was done on 04/29/21. No findings suggestive of reversible ischemia. He did have "mildly global reduced LV function" with an EF of 40%. Also a 4cm ascending aortic aneurysm, clinical follow up recommended. He was started on cardiac meds - but the patient states he has not been taking any of them because they make him "sick". Initial ECG Impression Date: May 27, 2021 Initial ECG Impression Time: 02:00 Initial ECG Rate: 89 Initial ECG Rhythm: Normal Sinus Initial ECG Intervals: Normal Initial ECG Impression: Normal, Nonspecific Changes (inferiorly) Departure Impression Primary Impression: Chest pain Qualified Codes: R07.9 - Chest pain, unspecified Additional Impression: Elevated troponin Disposition: 07 AGAINST MEDICAL ADVICE Condition: Against Medical Advice Departure-Patient Inst. Referrals: TIANNA GRANADOS DO (PCP/Family) Primary Care Physician LION REED MD May 27, 2021 02:46
[2021-05-27] MEDS ORDERED: KETOROLAC 30 MG/ML VIAL IVP ONE (03:30)
[2021-05-27] MEDS ORDERED: NICOTINE 21 MG (NICODERM) PATCH TD ONE (03:30)
--- NOTE | 2021-05-27 04:32 | Diagnostic Imaging Report ---
Indication: Chest pain Portable chest 2:27 AM Heart size and pulmonary vascularity are normal. Lungs are clear. There are no effusions or pneumothoraces. IMPRESSION: Negative chest Dictated by: Dictated on workstation # [id number]
== END 2021-05-27 04:18 | disposition left against medical advice (07) ==
LOC: EDUNIT# 01:57 → ER 01:59
DX: R07.9 Chest pain, unspecified (principal); R77.8 Other specified abnormalities of plasma proteins; J45.909 Unspecified asthma, uncomplicated; F17.210 Nicotine dependence, cigarettes, uncomplicated; Z86.73 Personal history of transient ischemic attack (TIA), and cerebral infarction without residual deficits; Z79.82 Long term (current) use of aspirin
CPT/HCPCS: 36415; 71045; 80053; 83735; 83874; 84484; 85025; 85610; 85730; 93005; 93041

== ENCOUNTER 2021-05-27 22:05 | Inpatient (IN) | payer MEDICARE ==
[~2021-05-27] VITALS: Ht 188 cm; Wt 103.0 kg
[2021-05-27] MEDS ORDERED: ONDANSETRON 4 MG/2 ML (SDV) Z0FRAN IVP ONE (22:45)
[2021-05-27 22:47] LABS: BASOPHILS % (AUTO) 1 % (0-10); EOSINOPHILS # (AUTO) 0.2 10^3/uL (0.0-0.3); EOSINOPHILS % (AUTO) 3 % (0-10); HEMATOCRIT 50 % (40-54); HEMOGLOBIN 16.8 g/dL (13.3-17.7); LYMPHOCYTES # (AUTO) 0.5 10^3/uL (1.0-4.0); LYMPHOCYTES % (AUTO) 9 % (12-44); MEAN CORPUSCULAR HEMOGLOBIN 33 pg (25-34); MEAN CORPUSCULAR HGB CONC 34 g/dL (32-36); MEAN CORPUSCULAR VOLUME 98 fL (80-99); MEAN PLATELET VOLUME 13.1 fL (9.0-12.2); MONOCYTES # (AUTO) 0.5 10^3/uL (0.0-1.0); MONOCYTES % (AUTO) 9 % (0-12); NEUTROPHILS # (AUTO) 4.5 10^3/uL (1.8-7.8); NEUTROPHILS % (AUTO) 79 % (42-75); PLATELET COUNT 60 10^3/uL (130-400); WHITE BLOOD COUNT 5.7 10^3/uL (4.3-11.0)
[2021-05-27 23:05] LABS: ERYTHROCYTE SEDIMENTATION RATE 1 MM/HR (0-30)
--- NOTE | 2021-05-27 23:08 | Diagnostic Imaging Report ---
PROCEDURE: CT head and CT cervical spine without contrast. TECHNIQUE: Multiple contiguous axial images were obtained through the brain and cervical spine without the use of intravenous contrast. Sagittal and coronal reformations through the cervical spine were then performed. Auto Exposure Controls were utilized during the CT exam to meet ALARA standards for radiation dose reduction. INDICATION: Syncope, head and neck injury. COMPARISON: 04/28/2021 FINDINGS: CT HEAD: The ventricles and cortical sulci are mildly prominent, likely from generalized parenchymal volume loss. There is no midline shift or mass effect. No acute intracranial hemorrhage is seen. There is no CT evidence of acute territorial ischemia. The calvarium appears intact. Visualized paranasal sinuses are clear. Cervical spine: There is mild reversal of the cervical lordosis with trace anterolisthesis at C7-T1. There is severe degenerative change at C5-C6 and C6-C7. Vertebral body heights are preserved. No acute fracture is seen. Soft tissues about the neck demonstrate no acute abnormality. The lung apices are clear. IMPRESSION: 1. No acute intracranial hemorrhage or calvarium fracture. 2. Degenerative changes in the cervical spine with no acute fracture seen. Dictated by: Dictated on workstation # [id number]
--- NOTE | 2021-05-27 23:16 | Diagnostic Imaging Report ---
PROCEDURE: CT thoracic and lumbar spine without contrast. TECHNIQUE: Multiple contiguous axial images were obtained through the thoracic and lumbar spine without the use of intravenous contrast. Sagittal and coronal reformations were then performed. All CT scans use one or more of the following dose optimizing techniques: automated exposure control, MA and/or KvP adjustment based on a patient size and exam type, or iterative reconstruction. INDICATION: Trauma, mid and low back pain, fall. COMPARISON: 10/20/[address] FINDINGS: Thoracic spine: Alignment of the thoracic spine appears normal with no spondylolisthesis. Vertebral body heights are preserved. There are mild degenerative changes in the thoracic spine. No bony fragments or hyperdense fluid collections are seen in the spinal canal. No acute fracture is seen. Surrounding soft tissues demonstrate no acute abnormality. There is dependent atelectasis in the lungs. There is fatty infiltration of the liver. Lumbar spine: Alignment of the lumbar spine appears normal. There are moderate degenerative changes. Vertebral body heights are preserved. No fracture is seen. No bony fragments or hyperdense fluid collections are seen in the spinal canal. No acute abnormality is seen in the surrounding soft tissues. There are a few nonobstructing calculi in the kidneys. IMPRESSION: 1. Degenerative changes in the thoracic and lumbar spine with no acute osseous abnormality seen. Dictated by: Dictated on workstation # [id number]
--- NOTE | 2021-05-27 23:19 | Diagnostic Imaging Report ---
HISTORY: Fall, syncope. COMPARISON: 05/27/2021 TECHNIQUE: Frontal view of the chest. FINDINGS: Lung volumes are normal. No consolidation is seen. There is no pleural effusion or pneumothorax. The cardiac silhouette is normal in size. No displaced rib fracture is seen. IMPRESSION: 1. No acute pulmonary abnormality. Dictated by: Dictated on workstation # [id number]
--- NOTE | 2021-05-27 23:20 | Diagnostic Imaging Report ---
HISTORY: Pelvic pain, fall. TECHNIQUE: Frontal view of the pelvis COMPARISON: None FINDINGS: No acute fracture or dislocation is seen in the pelvis. Alignment is normal. There is mild degenerative change in the hip joints bilaterally. Bilateral sacroiliac joints are patent. IMPRESSION: 1. No acute osseous abnormality is seen on this single view of the pelvis. Dictated by: Dictated on workstation # [id number]
[2021-05-27 23:30] LABS: ALBUMIN 4.4 GM/DL (3.2-4.5); CHLORIDE 96 MMOL/L (98-107); POTASSIUM 4.3 MMOL/L (3.6-5.0); SODIUM 136 MMOL/L (135-145)
[2021-05-27 23:32] LABS: AMYLASE 43 U/L (25-125)
[2021-05-27 23:33] LABS: GLUCOSE 83 MG/DL (70-105); TOTAL PROTEIN 7.4 GM/DL (6.4-8.2)
[2021-05-27 23:34] LABS: CARBON DIOXIDE 19 MMOL/L (21-32)
[2021-05-27 23:35] LABS: BILIRUBIN,TOTAL 1.7 MG/DL (0.1-1.0)
[2021-05-27 23:36] LABS: ALKALINE PHOSPHATASE 61 U/L (40-136)
[2021-05-27 23:37] LABS: CREATININE SERUM 0.95 MG/DL (0.60-1.30); GFR ESTIMATED 80
[2021-05-27 23:38] LABS: BUN/CREATININE RATIO 14; FIBRIN DEGRADATION PRODUCTS 0.84 UG/ML (0.00-0.49); PROTHROMBIN TIME PATIENT 13.4 SEC (12.2-14.7)
[2021-05-27 23:39] LABS: ALANINE AMINOTRANSFERASE 149 U/L (0-55); MAGNESIUM 1.7 MG/DL (1.6-2.4)
[2021-05-27 23:40] LABS: LIPASE 27 U/L (8-78)
[2021-05-27 23:41] LABS: CREATINE KINASE 190 U/L (30-200)
[2021-05-27 23:52] LABS: CREATINE KINASE MB 8.9 NG/ML (<6.6)
[2021-05-27] MEDS ORDERED: LACTATED RINGERS 1,000 ML IV ONE (23:58)
[2021-05-28] MEDS ORDERED: LACTATED RINGERS 1,000 ML IV ONE
[2021-05-28 02:00] VITALS: BP 133/84
[2021-05-28 02:25] LABS: BASOPHILS % (AUTO) 0 % (0-10); EOSINOPHILS % (AUTO) 0 % (0-10); HEMATOCRIT 48 % (40-54); HEMOGLOBIN 16.2 g/dL (13.3-17.7); LYMPHOCYTES # (AUTO) 0.6 10^3/uL (1.0-4.0); LYMPHOCYTES % (AUTO) 13 % (12-44); MEAN CORPUSCULAR HEMOGLOBIN 34 pg (25-34); MEAN CORPUSCULAR HGB CONC 34 g/dL (32-36); MEAN CORPUSCULAR VOLUME 99 fL (80-99); MEAN PLATELET VOLUME 12.3 fL (9.0-12.2); MONOCYTES # (AUTO) 0.5 10^3/uL (0.0-1.0); MONOCYTES % (AUTO) 10 % (0-12); NEUTROPHILS # (AUTO) 3.5 10^3/uL (1.8-7.8); NEUTROPHILS % (AUTO) 76 % (42-75); PLATELET COUNT 65 10^3/uL (130-400); WHITE BLOOD COUNT 4.6 10^3/uL (4.3-11.0)
[2021-05-28 02:35] LABS: ALBUMIN 4.2 GM/DL (3.2-4.5)
[2021-05-28 02:36] LABS: POTASSIUM 4.4 MMOL/L (3.6-5.0)
[2021-05-28 02:37] LABS: CALCIUM 8.9 MG/DL (8.5-10.1)
[2021-05-28 02:38] LABS: PROTHROMBIN TIME PATIENT 13.7 SEC (12.2-14.7); TOTAL PROTEIN 7.2 GM/DL (6.4-8.2)
[2021-05-28 02:40] LABS: BILIRUBIN,TOTAL 1.8 MG/DL (0.1-1.0)
[2021-05-28 02:42] LABS: CREATININE SERUM 0.91 MG/DL (0.60-1.30)
[2021-05-28] MEDS ORDERED: D5 1/2 NS W/KCL 20 MEQ/L 1,000 ML IV ONE (03:17)
[2021-05-28] MEDS: D5 1/2 NS W/KCL 20 MEQ/L 1,000 ML IV SCH ×4 (03:18→21:57)
[2021-05-28] MEDS ORDERED: 1/2 NS IV SOLUTION 1,000 ML IV PRN (04:00)
[2021-05-28] MEDS ORDERED: LORazepam INJ 2 MG/ML (ATIVAN) VIAL IM/IV PRN (04:00)
[2021-05-28] MEDS ORDERED: SENNA W/DOCUSATE (SENOKOT S) TABLET PO PRN (04:00)
[2021-05-28] MEDS ORDERED: D5 1/2 NS 1000 ML IV SOLUTION 1,000 ML IV PRN (04:00)
[2021-05-28] MEDS ORDERED: ONDANSETRON 4 MG/2 ML (SDV) Z0FRAN IV PRN (04:00)
[2021-05-28] MEDS ORDERED: LORazepam 1 MG (ATIVAN) TAB PO PRN (04:00)
[2021-05-28] MEDS ORDERED: LORazepam INJ 2 MG/ML (ATIVAN) VIAL IV PRN (04:00)
[2021-05-28] MEDS ORDERED: ONDANSETRON 4 MG (ZOFRAN) ORAL DISSOLVE TAB SL PRN (04:00)
[2021-05-28] MEDS ORDERED: NITROGLYCERIN 0.4 MG SL TABS BTL 25'S SL PRN (04:00)
[2021-05-28] MEDS ORDERED: ONDANSETRON 4 MG/2 ML (SDV) Z0FRAN IVP PRN (04:00)
[2021-05-28] MEDS ORDERED: ANTACID SUSP 30 ML UDC (MYLANTA) PO PRN (04:00)
[2021-05-28 04:20] LABS: CLARITY,URINE CLEAR; COLOR,URINE ORANGE; GLUCOSE, URINE (UA) NEGATIVE (NEGATIVE); KETONES,URINE 3+ (NEGATIVE); LEUKOCYTE ESTERASE ,URINE NEGATIVE (NEGATIVE); NITRITE,URINE NEGATIVE (NEGATIVE); PROTEIN,URINE 2+ (NEGATIVE)
[2021-05-28 04:38] LABS: AMPHETAMINE SCREEN, URINE NEGATIVE (NEGATIVE); BARBITURATE SCREEN URINE NEGATIVE (NEGATIVE); BENZODIAZEPINES SCREEN URINE NEGATIVE (NEGATIVE); CANNABINOID SCREEN, URINE NEGATIVE (NEGATIVE); COCAINE SCREEN URINE NEGATIVE (NEGATIVE); METHADONE STAT NEGATIVE (NEGATIVE); METHAMPHETAMINE SCREEN URINE S NEGATIVE (NEGATIVE); OPIATE SCREEN URINE NEGATIVE (NEGATIVE); OXYCODONE STAT NEGATIVE (NEGATIVE); PROPOXYPHENE STAT NEGATIVE (NEGATIVE); TRICYCLIC ANTIDEPRESSANTS SCRE NEGATIVE (NEGATIVE)
[2021-05-28 04:42] LABS: BACTERIA,URINE TRACE /HPF; BILIRUBIN,URINE NEGATIVE (NEGATIVE); GRANULAR CASTS,URINE 0-2 /LPF; HYALINE CASTS, URINE 0-2 /LPF; RBC,URINE 0-2 /HPF; WBC,URINE RARE /HPF
[2021-05-28] MEDS: THIAMINE INJECTION 100 MG, FOLIC ACID INJECTION 1 MG, MAGNESIUM SULFATE 2 GM, VITAMIN M... IV SCH ×5 (08:55)
[2021-05-28] MEDS: ASPIRIN E.C. 81 MG (ECOTRIN) TAB PO SCH (08:55)
--- NOTE | 2021-05-28 11:55 | Discharge Summary ---
Discharge Summary Hospital Course Was the Problem List Reviewed?: Yes Problems/Dx: (1) Chest pain Status: Acute (2) Alcohol abuse Status: Chronic (3) Thrombocytopenia Status: Acute (4) Elevated LFTs Status: Acute (5) Hepatic steatosis Status: Chronic (6) ALD (alcoholic liver disease) Status: Chronic Hospital Course Date of Admission: May 28, 2021 at 00:05 Admission Diagnosis : Chest pain Family Physician/Provider: Leroy Avendano DO Date of Discharge: 05/28/21 Discharge Diagnosis: Chest pain Hospital Course: Chivo Phan is a 66 year old male who was admitted with chest pain. His troponin was minimally elevated and stable from prior checks. Cardiology was consulted and assisted with his care. He recently had a cardiac evaluation at [facility]. He had no evidence of acute coronary syndrome. His symptoms resolved. His course was complicated by signs of chronic alcohol abuse and liver disease. He had thrombocytopenia which appeared to be chronic but slightly worse than his baseline. He also had elevated LFTs. He appears to be trending toward alcoholic cirrhosis if he is not yet there. He was recommended to avoid alcohol. He had reportedly not had a drink for several days prior to his admission. He showed no signs of alcohol withdrawal. He was discharged home in stable condition. 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 Labs and Pending Lab Test: Laboratory Tests 05/27/21 22:42: White Blood Count 5.7, Red Blood Count 5.08, Hemoglobin 16.8, Hematocrit 50, Mean Corpuscular Volume 98, Mean Corpuscular Hemoglobin 33, Mean Corpuscular Hemoglobin Concent 34, Red Cell Distribution Width 13.9, Platelet Count 60L, Mean Platelet Volume 13.1H, Immature Granulocyte % (Auto) 0, Neutrophils (%) (Auto) 79H, Lymphocytes (%) (Auto) 9L, Monocytes (%) (Auto) 9, Eosinophils (%) (Auto) 3, Basophils (%) (Auto) 1, Neutrophils # (Auto) 4.5, Lymphocytes # (Auto) 0.5L, Monocytes # (Auto) 0.5, Eosinophils # (Auto) 0.2, Basophils # (Auto) 0.0, Immature Granulocyte # (Auto) 0.0, Percent Immature Platelet Fraction 14.3H, Erythrocyte Sedimentation Rate 1, B-Type Natriuretic Peptide 29.9 05/27/21 23:22: Prothrombin Time 13.4, INR Comment 1.0, Activated Partial Thromboplast Time 25, D-Dimer 0.84H, Sodium Level 136, Potassium Level 4.3, Chloride Level 96L, Carbon Dioxide Level 19L, Anion Gap 21H, Blood Urea Nitrogen 13, Creatinine 0.95, Estimat Glomerular Filtration Rate 80, BUN/Creatinine Ratio 14, Glucose Level 83, Calcium Level 9.0, Corrected Calcium 8.7, Magnesium Level 1.7, Total Bilirubin 1.7H, Aspartate Amino Transf (AST/SGOT) 160H, Alanine Aminotransferase (ALT/SGPT) 149H, Alkaline Phosphatase 61, Total Creatine Kinase 190, Creatine Kinase MB 8.9*H, Myoglobin 104.8H, Troponin I 0.036H, C-Reactive Protein High Sensitivity 0.62H, Total Protein 7.4, Albumin 4.4, Amylase Level 43, Lipase 27, Serum Alcohol < 10 05/28/21 02:19: White Blood Count 4.6, Red Blood Count 4.84, Hemoglobin 16.2, Hematocrit 48, Mean Corpuscular Volume 99, Mean Corpuscular Hemoglobin 34, Mean Corpuscular Hemoglobin Concent 34, Red Cell Distribution Width 14.0, Platelet Count 65L, Mean Platelet Volume 12.3H, Immature Granulocyte % (Auto) 0, Neutrophils (%) (Auto) 76H, Lymphocytes (%) (Auto) 13, Monocytes (%) (Auto) 10, Eosinophils (%) (Auto) 0, Basophils (%) (Auto) 0, Neutrophils # (Auto) 3.5, Lymphocytes # (Auto) 0.6L, Monocytes # (Auto) 0.5, Eosinophils # (Auto) 0.0, Basophils # (Auto) 0.0, Immature Granulocyte # (Auto) 0.0, Prothrombin Time 13.7, INR Comment 1.0, A ctivated Partial Thromboplast Time 25, Sodium Level 136, Potassium Level 4.4, Chloride Level 96L, Carbon Dioxide Level 18L, Anion Gap 22H, Blood Urea Nitrogen 13, Creatinine 0.91, Estimat Glomerular Filtration Rate 84, BUN/Creatinine Ratio 14, Glucose Level 75, Calcium Level 8.9, Corrected Calcium 8.7, Total Bilirubin 1.8H, Aspartate Amino Transf (AST/SGOT) 156H, Alanine Aminotransferase (ALT/ SGPT) 142H, Alkaline Phosphatase 56, Troponin I 0.040H, Total Protein 7.2, Albumin 4.2 05/28/21 04:08: Urine Color ORANGE, Urine Clarity CLEAR, Urine pH 6.0, Urine Specific [place] >=1.030, Urine Protein 2+H, Urine Glucose (UA) NEGATIVE, Urine Ketones 3+H, Urine Nitrite NEGATIVE, Urine Bilirubin NEGATIVE, Urine Urobilinogen 1.0, Urine Leukocyte Esterase NEGATIVE, Urine RBC (Auto) 1+H, Urine RBC 0-2, Urine WBC RARE, Urine Crystals NONE, Urine Bacteria TRACE, Urine Casts PRESENT, Urine Hyaline Casts 0-2H, Urine Granular Casts 0-2H, Urine Mucus NEGATIVE, Urine Culture Indicated NO, Urine Opiates Screen NEGATIVE, Urine Oxycodone Screen NEGATIVE, Urine Methadone Screen NEGATIVE, Urine Propoxyphene Screen NEGATIVE, Urine Barbiturates Screen NEGATIVE, Ur Tricyclic Antidepressants Screen NEGATIVE, Urine Phencyclidine Screen NEGATIVE, Urine Amphetamines Screen NE GATIVE, Urine Methamphetamines Screen NEGATIVE, Urine Benzodiazepines Screen NEGATIVE, Urine Cocaine Screen NEGATIVE, Urine Cannabinoids Screen NEGATIVE Home Meds Active Pantoprazole Sodium 40 Mg Tablet.dr 40 Mg PO DAILY 30 Days Amitriptyline HCl 50 Mg Tablet 50 Mg PO HS 30 Days Reported Aspirin EC (Aspirin) 81 Mg Tablet.dr 81 Mg PO DAILY Assessment/Pt Instructions Take medications as prescribed. Avoid alcohol use. 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 Return with worsening chest pain, shortness of breath, or if you feel like you are getting worse. Discharge Planning: <30 minutes discharge planning Discharge Instructions Discharge Diet: Low Sodium Diet Activity as Tolerated: Yes Consultations Cardiology Discharge Physical Examination Vital Signs Vital Signs Date Time Temp Pulse Resp B/P (MAP) Pulse Ox O2 Delivery O2 Flow Rate FiO2 05/28/21 11:30 93 Room Air 05/28/21 11:26 36.6 68 20 134/77 2.00 General Appearance: No Apparent Distress, WD/WN HEENT: PERRL/EOMI, Pharynx Normal Respiratory: Lungs Clear, Normal Breath Sounds, No Respiratory Distress Cardiovascular: Regular Rate, Rhythm, No Edema, No Murmur, Normal Peripheral Pulses Gastrointestinal: Normal Bowel Sounds, Non Tender, Soft Extremity: Normal Inspection, Non Tender, No Pedal Edema Skin: Normal Color, Warm/Dry Neurologic/Psychiatric: Alert, Oriented x3, No Motor/Sensory Deficits, Normal Mood/Affect Allergies: Coded Allergies: Penicillins (Verified Allergy, Unknown, 10/17/13) morphine (Verified Allergy, Unknown, pt has received Hydromorphone in the past, 03/18/21) Copy Copies To 1: LEROY AVENDANO DO Discharge Summary Date of Admission May 28, 2021 at 00:05 Date of Discharge Discharge Date: May 28, 2021 Discharge Time: 12:00 Admission Diagnosis Chest pain Consults/Procedures Consulations Cardiology Discharge Diagnosis (1) Chest pain Status: Acute (2) Alcohol abuse Status: Chronic (3) Thrombocytopenia Status: Acute (4) Elevated LFTs Status: Acute (5) Hepatic steatosis Status: Chronic (6) ALD (alcoholic liver disease) Status: Chronic SARAH MANRIQUEZ MD May 28, 2021 11:54
--- NOTE | 2021-05-28 12:24 | Consultation-Cardiology ---
HPI-Cardiology Cardiology Consultation: Date of Consultation 05/28/2021 Date of Admission 05/27/2021 Attending Physician Sarah Manriquez MD Admitting Physician Leroy Avendano DO Consulting Physician MANUEL VIGIL JR, MD HPI: Time Seen by a Provider: 12:20 Chief Complaint: Reason for consultation: Chest pain. I saw Chivo on the cardiac stepdown unit at [facility] in [place], [place] this afternoon. He tells me he had a heart attack in the past but never underwent a cardiac catheterization. He also has a previous history of a cerebrovascular accident about 3 years ago. He was actually in [facility] 1 month ago with chest pain and at that time underwent a nuclear stress test that showed normal perfusion but with an ejection fraction of 44%. He was ultimately discharged home and did not follow-up with that hospital. Yesterday he got out of bed and had severe substernal chest discomfort. He clenched his chest and then states he had syncope and collapsed on the floor and hit his head. He later came to the emergency room for further evaluation. He had negative troponin levels and no ischemic changes on his electrocardiogram. Admission was recommended but then the patient left AGAINST MEDICAL ADVICE. A short while later, he returned to the emergency room due to ongoing chest discomfort and dyspnea. He then agreed to admission. Last night he states that due to nausea, vomiting and ongoing chest discomfort he did not get much sleep. This morning he still had some nausea and was vomiting water and mucus. He denies any hematemesis. He was still having chest discomfort off and on when I talked to him. He denies paroxysmal nocturnal dyspnea, orthopnea, palpitations, or lower extremity edema. He smokes a few cigarettes per day. He has a history of alcohol abuse. Because of the chest discomfort, a cardiology consultation was requested. Certain portions of this document may have been dictated utilizing voice recognition technology. Inherent to this technology, typographical and grammatical errors may exist. As much as I am diligent to identify and correct these mistakes, some errors may remain in the document. Review of Systems-Cardiology Review of Systems Other comments Review of 10 organ systems is as per the history of present illness, otherwise negative. BQF-Gorrth-Nsbegm Hx Patient Social History Smoking Status: Heavy Tobacco Smoker Have you traveled recently?: No Alcohol Use?: Yes Pt feels they are or have been: No Tobacco type used: Cigarettes Immunizations Up To Date Tetanus Booster (TDap): Less than 5yrs Date of Pneumonia Vaccine: Jan 06, 1971 Past Medical History PMH As described under Assessment. Family Medical History Family History: History of - respiratory disease 03 FATHER (EMPHYSEMIA) Allergies and Home Medications Allergies Coded Allergies: Penicillins (Verified Allergy, Unknown, 10/17/13) morphine (Verified Allergy, Unknown, pt has received Hydromorphone in the past, 03/18/21) Patient Home Medication List Home Medication List Reviewed: Yes Amitriptyline HCl (Amitriptyline HCl) 50 Mg Tablet, 50 MG PO HS Prescribed by: SARAH MANRIQUEZ on 03/21/21 1133 Aspirin (Aspirin EC) 81 Mg Tablet.dr, 81 MG PO DAILY, (Reported) Entered as Reported by: AURORA GUAMAN on 03/15/21 0959 Pantoprazole Sodium (Pantoprazole Sodium) 40 Mg Tablet.dr, 40 MG PO DAILY Prescribed by: SARAH MANRIQUEZ on 03/21/21 1133 Exam Vital Signs Vital Signs Date Time Temp Pulse Resp B/P (MAP) Pulse Ox O2 Delivery O2 Flow Rate FiO2 05/28/21 11:30 93 Room Air 05/28/21 11:26 36.6 68 20 134/77 2.00 Physical Exam General: Alert. No acute distress. Well nourished and appears stated age. He is disheveled. Eye: Extraocular movements are intact. Conjunctivae are clear. There are no xanthelasma. HENT: Normocephalic. Atraumatic. Carotid pulsations 2/2 without bruits. Neck: Jugular venous pressure does not appear elevated. No thyromegaly appreciated. Respiratory: Lungs are clear to auscultation. Respirations are non-labored. Breath sounds are equal. Symmetrical chest wall expansion. Cardiovascular: Normal rate. Regular rhythm. No murmur. No gallop. Point of maximal impulse is not appear displaced. Good pulses equal in all extremities. No edema. Gastrointestinal: Soft. Normal bowel sounds. Skin: Skin turgor is normal. There is no pallor. Musculoskeletal: No kyphosis or scoliosis appreciated. Neurologic: Alert and oriented to person, place, time. Cranial nerves 3-12 appear grossly intact. The patient has good motor tone strength in the upper and lower extremities bilaterally. Psychiatric: Cooperative. Appropriate mood & affect. Labs Laboratory Tests Test 05/27/21 22:42 05/27/21 23:22 05/28/21 02:19 05/28/21 04:08 Range/Units White Blood Count 5.7 4.6 4.3-11.0 10^3/uL Red Blood Count 5.08 4.84 4.30-5.52 10^6/uL Hemoglobin 16.8 16.2 13.3-17.7 g/dL Hematocrit 50 48 40-54 % Mean Corpuscular Volume 98 99 80-99 fL Mean Corpuscular Hemoglobin 33 34 25-34 pg Mean Corpuscular Hemoglobin Concent 34 34 32-36 g/dL Red Cell Distribution Width 13.9 14.0 10.0-14.5 % Platelet Count 60 L 65 L 130-400 10^3/uL Mean Platelet Volume 13.1 H 12.3 H 9.0-12.2 fL Immature Granulocyte % (Auto) 0 0 % Neutrophils (%) (Auto) 79 H 76 H 42-75 % Lymphocytes (%) (Auto) 9 L 13 12-44 % Monocytes (%) (Auto) 9 10 0-12 % Eosinophils (%) (Auto) 3 0 0-10 % Basophils (%) (Auto) 1 0 0-10 % Neutrophils # (Auto) 4.5 3.5 1.8-7.8 10^3/uL Lymphocytes # (Auto) 0.5 L 0.6 L 1.0-4.0 10^3/uL Monocytes # (Auto) 0.5 0.5 0.0-1.0 10^3/uL Eosinophils # (Auto) 0.2 0.0 0.0-0.3 10^3/uL Basophils # (Auto) 0.0 0.0 0.0-0.1 10^3/uL Immature Granulocyte # (Auto) 0.0 0.0 0.0-0.1 10^3/uL Percent Immature Platelet Fraction 14.3 H 0.0-7.6 % Erythrocyte Sedimentation Rate 1 0-30 MM/HR B-Type Natriuretic Peptide 29.9 <100.0 PG/ML Prothrombin Time 13.4 13.7 12.2-14.7 SEC INR Comment 1.0 1.0 0.8-1.4 Activated Partial Thromboplast Time 25 25 24-35 SEC D-Dimer 0.84 H 0.00-0.49 UG/ML Sodium Level 136 136 135-145 MMOL/L Potassium Level 4.3 4.4 3.6-5.0 MMOL/L Chloride Level 96 L 96 L 98-107 MMOL/L Carbon Dioxide Level 19 L 18 L 21-32 MMOL/L Anion Gap 21 H 22 H 5-14 MMOL/L Blood Urea Nitrogen 13 13 7-18 MG/DL Creatinine 0.95 0.91 0.60-1.30 MG/DL Estimat Glomerular Filtration Rate 80 84 BUN/Creatinine Ratio 14 14 Glucose Level 83 75 70-105 MG/DL Calcium Level 9.0 8.9 8.5-10.1 MG/DL Corrected Calcium 8.7 8.7 8.5-10.1 MG/DL Magnesium Level 1.7 1.6-2.4 MG/DL Total Bilirubin 1.7 H 1.8 H 0.1-1.0 MG/DL Aspartate Amino Transf (AST/SGOT) 160 H 156 H 5-34 U/L Alanine Aminotransferase (ALT/SGPT) 149 H 142 H 0-55 U/L Alkaline Phosphatase 61 56 40-136 U/L Total Creatine Kinase 190 30-200 U/L Creatine Kinase MB 8.9 *H <6.6 NG/ML Myoglobin 104.8 H 10.0-92.0 NG/ML Troponin I 0.036 H 0.040 H <0.028 NG/ML C-Reactive Protein High Sensitivity 0.62 H 0.00-0.50 MG/DL Total Protein 7.4 7.2 6.4-8.2 GM/DL Albumin 4.4 4.2 3.2-4.5 GM/DL Amylase Level 43 25-125 U/L Lipase 27 8-78 U/L Serum Alcohol < 10 <10 MG/DL Urine Color ORANGE Urine Clarity CLEAR Urine pH 6.0 5-9 Urine Specific [place] >=1.030 1.016-1.022 Urine Protein 2+ H NEGATIVE Urine Glucose (UA) NEGATIVE NEGATIVE Urine Ketones 3+ H NEGATIVE Urine Nitrite NEGATIVE NEGATIVE Urine Bilirubin NEGATIVE NEGATIVE Urine Urobilinogen 1.0 < = 1.0 MG/DL Urine Leukocyte Esterase NEGATIVE NEGATIVE Urine RBC (Auto) 1+ H NEGATIVE Urine RBC 0-2 /HPF Urine WBC RARE /HPF Urine Crystals NONE /LPF Urine Bacteria TRACE /HPF Urine Casts PRESENT /LPF Urine Hyaline Casts 0-2 H /LPF Urine Granular Casts 0-2 H /LPF Urine Mucus NEGATIVE /LPF Urine Culture Indicated NO Urine Opiates Screen NEGATIVE NEGATIVE Urine Oxycodone Screen NEGATIVE NEGATIVE Urine Methadone Screen NEGATIVE NEGATIVE Urine Propoxyphene Screen NEGATIVE NEGATIVE Urine Barbiturates Screen NEGATIVE NEGATIVE Ur Tricyclic Antidepressants Screen NEGATIVE NEGATIVE Urine Phencyclidine Screen NEGATIVE NEGATIVE Urine Amphetamines Screen NEGATIVE NEGATIVE Urine Methamphetamines Screen NEGATIVE NEGATIVE Urine Benzodiazepines Screen NEGATIVE NEGATIVE Urine Cocaine Screen NEGATIVE NEGATIVE Urine Cannabinoids Screen NEGATIVE NEGATIVE ECG Impression ECG Comment Electrocardiogram obtained in the emergency room on 05/27 showed sinus rhythm with borderline anterior ST elevation. Diagnosis/Problems Diagnosis/Problems (1) Chest pain Status: Acute Assessment & Plan: Exact etiology unclear. He had negative troponin levels and no ischemic changes on his electrocardiogram. He had a stress test 1 month ago that showed normal perfusion. However, he has cardiac risk factors of hypertension by his report and cigarette smoking. I suspect his chest discomfort could be due to gastroesophageal reflux disease. However, in light of his risk factors and ongoing chest discomfort, we may need to consider further evaluation with a cardiac catheterization. He has been started on aspirin. I will start him on beta-jennifer. I do not see any indication for anticoagulation at this time. I will also restart his proton pump inhibitor. I would recommend he stay in the hospital until Sunday and undergo a cardiac catheterization at that time. However, if he continues to have chest discomfort despite starting the medications noted above, we may need to consider a more urgent cardiac catheterization prior to Sunday. (2) Cardiomyopathy Assessment & Plan: His recent nuclear stress test showed an ejection fraction of 44% and his echocardiogram showed an ejection fraction of 40%. Both of these were done at [facility] in [place], [place]. I will start him on metoprolol succinate. I will hold off on starting an RADHAMES inhibitor until I see how his blood pressure response to metoprolol. (3) Thoracic aortic aneurysm without rupture Assessment & Plan: His echocardiogram from the outside hospital shows an aortic root measurement of 4 cm. This will need to be followed longitudinally. His symptoms do not sound consistent with an aortic dissection and with the aorta being 4 cm, the risk of dissection is low. (4) Primary hypertension Assessment & Plan: He reports a history of hypertension but was not taking antihypertensive medication at home. I will be starting him on metoprolol succinate due to the mild left ventricular systolic dysfunction as outlined above. (5) Gastroesophageal reflux disease without esophagitis Assessment & Plan: As above, suspect this could be contributing to his chest pain. I will start him on pantoprazole which he was taking at home. I will double the dose to twice daily dosing. (6) Cigarette smoker Assessment & Plan: He needs to quit smoking. MANUEL VIGIL JR, MD May 28, 2021 12:24
[2021-05-28] MEDS ORDERED: PANTOPRAZOLE 40 MG (PROTONIX) TAB PO NR (12:30)
[2021-05-28] MEDS: fentaNYL INJ 100 MCG/2 ML AMP IV PRN ×2 (13:05→21:48)
[2021-05-28] MEDS: PANTOPRAZOLE 40 MG (PROTONIX) TAB PO SCH (21:48)
[2021-05-29] VITALS: BP 151/92
[2021-05-29] MEDS: fentaNYL INJ 100 MCG/2 ML AMP IV PRN ×4 (00:44→14:19)
[2021-05-29 05:03] LABS: HEMOGLOBIN 15.4 g/dL (13.3-17.7)
[2021-05-29 05:05] LABS: MEAN PLATELET VOLUME 12.8 fL (9.0-12.2)
[2021-05-29] MEDS: D5 1/2 NS W/KCL 20 MEQ/L 1,000 ML IV SCH (05:15)
[2021-05-29 05:26] LABS: ALBUMIN 3.7 GM/DL (3.2-4.5)
[2021-05-29 05:27] LABS: CALCIUM 8.4 MG/DL (8.5-10.1)
[2021-05-29 05:28] LABS: TOTAL PROTEIN 6.2 GM/DL (6.4-8.2)
[2021-05-29 05:30] LABS: BILIRUBIN,TOTAL 1.2 MG/DL (0.1-1.0)
[2021-05-29 05:32] LABS: CREATININE SERUM 0.79 MG/DL (0.60-1.30)
[2021-05-29] MEDS: PANTOPRAZOLE 40 MG (PROTONIX) TAB PO SCH (08:09)
[2021-05-29] MEDS: ASPIRIN E.C. 81 MG (ECOTRIN) TAB PO SCH (08:09)
[2021-05-29] MEDS ORDERED: PANTOPRAZOLE 40 MG (PROTONIX) TAB PO SCH (09:00)
[2021-05-29] MEDS: THIAMINE INJECTION 100 MG, FOLIC ACID INJECTION 1 MG, MAGNESIUM SULFATE 2 GM, VITAMIN M... IV SCH ×5 (09:01)
--- NOTE | 2021-05-29 09:27 | Cardiology Progress Note ---
Progress Note-Cardiology Events since last exam Date Seen by Provider: May 29, 2021 Time Seen by Provider: 09:24 Events since last exam I am seeing him for chest pain. He continued to have chest pain off and on overnight. His nausea is somewhat improved. This morning he had breakfast without issues. He denies dyspnea at rest. He denies palpitations, syncope, or ankle edema. Certain portions of this document may have been dictated utilizing voice recognition technology. Inherent to this technology, typographical and grammatical errors may exist. As much as I am diligent to identify and correct these mistakes, some errors may remain in the document. Vitals Last set of Vitals Signs Vital Signs 05/28/21 05/29/21 13:33 08:34 Temp 36.2 Pulse 70 Resp 16 B/P (MAP) 153/94 Pulse Ox 96 O2 Delivery Room Air O2 Flow Rate 3.00 Labs Labs Laboratory Tests 05/29/21 04:50 Exam Vital Signs Vital Signs Date Time Temp Pulse Resp B/P (MAP) Pulse Ox O2 Delivery O2 Flow Rate FiO2 05/29/21 08:34 36.2 70 16 153/94 96 Room Air 05/28/21 13:33 3.00 Physical Exam General: Alert. No acute distress. Eye: No xanthelasma. HENT: Normocephalic. Neck: Jugular venous pressure does not appear elevated. Respiratory: Lungs are clear to auscultation. Respirations are non-labored. Breath sounds are equal. Symmetrical chest wall expansion. Cardiovascular: Normal rate. Regular rhythm. No murmur. No gallop. No edema. Right radial artery is minimally palpable. Left radial pulse is bounding. Gastrointestinal: Soft. Normal bowel sounds. Skin: Warm. Dry. Neurologic: Alert and oriented to person, place, time. Cranial nerves 3-11 g rossly intact. Psychiatric: Cooperative. Appropriate mood & affect. Labs Laboratory Tests Test 05/29/21 04:50 Range/Units White Blood Count 4.0 L 4.3-11.0 10^3/uL Red Blood Count 4.67 4.30-5.52 10^6/uL Hemoglobin 15.4 13.3-17.7 g/dL Hematocrit 46 40-54 % Mean Corpuscular Volume 98 80-99 fL Mean Corpuscular Hemoglobin 33 25-34 pg Mean Corpuscular Hemoglobin Concent 34 32-36 g/dL Red Cell Distribution Width 13.4 10.0-14.5 % Platelet Count 51 L 130-400 10^3/uL Mean Platelet Volume 12.8 H 9.0-12.2 fL Percent Immature Platelet Fraction 16.4 H 0.0-7.6 % Sodium Level 134 L 135-145 MMOL/L Potassium Level 4.0 3.6-5.0 MMOL/L Chloride Level 100 98-107 MMOL/L Carbon Dioxide Level 21 21-32 MMOL/L Anion Gap 13 5-14 MMOL/L Blood Urea Nitrogen 11 7-18 MG/DL Creatinine 0.79 0.60-1.30 MG/DL Estimat Glomerular Filtration Rate 98 BUN/Creatinine Ratio 14 Glucose Level 123 H 70-105 MG/DL Calcium Level 8.4 L 8.5-10.1 MG/DL Corrected Calcium 8.6 8.5-10.1 MG/DL Total Bilirubin 1.2 H 0.1-1.0 MG/DL Aspartate Amino Transf (AST/SGOT) 107 H 5-34 U/L Alanine Aminotransferase (ALT/SGPT) 109 H 0-55 U/L Alkaline Phosphatase 58 40-136 U/L Total Protein 6.2 L 6.4-8.2 GM/DL Albumin 3.7 3.2-4.5 GM/DL Triglycerides Level 50 <150 MG/DL Cholesterol Level 147 < 200 MG/DL LDL Cholesterol Direct 41 1-129 MG/DL VLDL Cholesterol 10 5-40 MG/DL HDL Cholesterol 75 H 40-60 MG/DL Diagnosis/Problems Diagnosis/Problems (1) Chest pain Status: Acute Assessment & Plan: Exact etiology unclear. He continues to have intermittent chest discomfort. When I reviewed his troponin levels yesterday, somehow I was under the impression that these were negative. I must have misread the results. He is on aspirin and beta-jennifer. He continues to have chest pain and had borderline elevated cardiac enzyme levels. As such, I recommend further evaluation with a cardiac catheterization. I will plan to perform this today. He should be n.p.o. from this point forward. I will hold off until this afternoon for the procedure since he ate breakfast. His right radial pulse is minimally palpable. I may attempt ultrasound-guided access to the right radial artery for the procedure. If this is not successful I may switch to the left radial artery or right femoral artery. I was initially planning to have him undergo a cardiac catheterization on Sunday. However, after seeing him this morning and hearing his report of ongoing chest discomfort, I will plan to go ahead with the procedure on a more urgent basis today. (2) Elevated troponin Status: Acute Assessment & Plan: As above, he had borderline elevation of the troponin levels without acute ischemic changes on his electrocardiogram. I have added another troponin level to blood work that was obtained this morning. In light of the ongoing chest discomfort, I will plan on cardiac catheterization later today as outlined above. I am not yet clear whether or not he may have suffered a non-ST elevation myocardial infarction. The coronary angiogram will help determine whether or not he has suffered a myocardial infarction during this admission. (3) Cardiomyopathy Assessment & Plan: His recent nuclear stress test showed an ejection fraction of 44% and his echocardiogram showed an ejection fraction of 40%. Both of these were done at [facility] in [place], [place]. I started him on metoprolol succinate on 05/28. I will start him on low-dose RADHAMES inhibitor today. (4) Thoracic aortic aneurysm without rupture Assessment & Plan: His echocardiogram from the outside hospital showed an aortic root measurement of 4 cm. This will need to be followed longitudinally. His symptoms do not sound consistent with an aortic dissection and with the aorta being 4 cm, the risk of dissection is low. (5) Primary hypertension Assessment & Plan: He reports a history of hypertension but was not taking antihypertensive medication at home. We will watch his blood pressures as we have initiated guideline directed medical therapy for the cardiomyopathy. (6) Gastroesophageal reflux disease without esophagitis Assessment & Plan: As above, I suspect this could be contributing to his chest pain. He was taking pantoprazole once a day at home. I increased his dose of pantoprazole to twice daily dosing. Unclear whether or not this has helped his chest discomfort. (7) Cigarette smoker Assessment & Plan: He needs to quit smoking. MANUEL VIGIL JR, MD May 29, 2021 09:27
[2021-05-29] MEDS ORDERED: NS IV 1000 ML 1,000 ML IV ONE (09:30)
[2021-05-29] MEDS ORDERED: CATHETER FLUSH 10 ML SYR IV PRN (09:30)
[2021-05-29] MEDS ORDERED: lisINopril 5 MG (PRINIVIL) TABLET PO NR (10:00)
--- NOTE | 2021-05-29 10:55 | History & Physical-Hospitalist ---
History of Present Illness HPI/Chief Complaint Chivo Phan is a 66 year old male with PMH CAD, CVA, alcohol abuse, tobacco abuse, hepatic steatosis, pulmonary nodule, who presented with chest pain. He reportedly got out of bed with severe substernal chest pain. He then fell to the floor and passed out. He came to the ER but left AMA. He returned with worsening chest pain and shortness of breath. He had nausea and vomiting. He was diaphoretic. He denies fevers and chills. He denies cough. He smokes daily. He says he quit drinking recently and his last drink was nearly a week ago. Source: patient Exam Limitations: no limitations Date Seen 05/28/21 Time Seen by a Provider: 09:30 Attending Physician Sarah Manriquez MD PCP Leroy Avendano DO Referring Physician Date of Admission May 28, 2021 at 00:05 Home Medications & Allergies Home Medications Reviewed patient Home Medication Reconciliation performed by pharmacy medication reconciliations finishing technician and/or nursing. Patients Allergies have been reviewed. Allergies Allergies Coded Allergies Penicillins (Verified Allergy, Unknown, 10/17/13) morphine (Verified Allergy, Unknown, pt has received Hydromorphone in the past, 03/18/21) Past [id number]-Tfbyak Hx Patient Social History Tobacco Use?: Yes Tobacco type used: Cigarettes Smoking Status: Heavy Tobacco Smoker Substance use?: No Substance frequency: Daily Alcohol Use?: Yes Alcohol type: Beer Alcohol Frequency: Daily Additional Alcohol Comments: Report he "enjoys a hot toddy now and then" Pt feels they are or have been: No Immunizations Up To Date First/Initial COVID19 Vaccinat: 2020 Second COVID19 Vaccination Loc: 2020 Tetanus Booster (TDap): Unknown Hepatitis A: Yes Hepatitis B: Yes PED Vaccines UTD: No Date of Pneumonia Vaccine: Jan 06, 1970 Current Status Advance Directives: No Communicates: Verbally Primary Language: Haitian Preferred Spoken Language: Haitian Is interpretation needed?: No Implanted or Applied Medical D: None Past Medical History Surgeries: Orthopedic Asthma Stroke Pancreatitis, Gall Bladder Disease Back Injury, Fractures Adverse Reaction/Blood Tranf: No Family Medical History History of - respiratory disease 03 FATHER (EMPHYSEMIA) GI Disease Review of Systems Constitutional: diaphoresis EENTM: no symptoms reported Respiratory: short of breath Cardiovascular: chest pain Gastrointestinal: nausea, vomiting Genitourinary: no symptoms reported Musculoskeletal: no symptoms reported Skin: no symptoms reported Psychiatric/Neurological: No Symptoms Reported Physical Exam Physical Exam Vital Signs Vital Signs - First Documented 05/27/21 05/27/21 05/28/21 05/28/21 22:10 22:15 01:20 05:34 Temp 36.9 Pulse 88 Resp 20 B/P (MAP) 140/102 (115) Pulse Ox 95 O2 Delivery Room Air O2 Flow Rate 88.00 Capillary Refill : Less Than 3 Seconds Height, Weight, BMI Height: 6'1.00" Weight: 211lbs. 0.5oz. 95.906043ft; 185.35 BMI Method:Stated General Appearance: No Apparent Distress, WD/WN HEENT: PERRL/EOMI, Pharynx Normal Neck: Normal Inspection, Supple Respiratory: Lungs Clear, Normal Breath Sounds, No Respiratory Distress Cardiovascular: Regular Rate, Rhythm, No Edema, No Murmur Gastrointestinal: Normal Bowel Sounds, Non Tender, Soft Extremity: Normal Inspection, Non Tender, No Pedal Edema Neurologic/Psychiatric: Alert, Oriented x3, No Motor/Sensory Deficits, Normal Mood/Affect Skin: Normal Color, Warm/Dry Results Results/Procedures Labs Laboratory Tests 05/27/21 22:42 05/27/21 23:22 05/28/21 02:19 05/29/21 04:50 Patient resulted labs reviewed. Imaging: Reviewed Imaging Report Assessment/Plan Admission Diagnosis Chest pain Admission Status: Inpatient Order (span 2 midnights) Reason for Inpatient Admission: Cardiology intervention Assessment and Plan Chest pain Elevated troponin Troponin mildly elevated EKG normal Cardiology consulted Planning for left heart cath Sunday, sooner if symptoms persist/worsen Cardiomyopathy Thoracic aortic aneurysm HTN Tobacco abuse GERD Alcohol abuse Elevated LFTs Thrombocytopenia Alcoholic liver disease Diagnosis/Problems Diagnosis/Problems (1) Chest pain Status: Acute (2) Alcohol abuse Status: Chronic (3) Thrombocytopenia Status: Acute (4) Elevated LFTs Status: Acute (5) Hepatic steatosis Status: Chronic (6) ALD (alcoholic liver disease) Status: Chronic SARAH MANRIQUEZ MD May 29, 2021 10:55
--- NOTE | 2021-05-29 11:11 | Progress Note - Hospitalist ---
Subjective HPI/CC On Admission Date Seen by Provider: May 29, 2021 Time Seen by Provider: 09:40 Chivo Phan is a 66 year old male with PMH CAD, CVA, alcohol abuse, tobacco abuse, hepatic steatosis, pulmonary nodule, who presented with chest pain. He reportedly got out of bed with severe substernal chest pain. He then fell to the floor and passed out. He came to the ER but left AMA. He returned with worsening chest pain and shortness of breath. He had nausea and vomiting. He was diaphoretic. He denies fevers and chills. He denies cough. He smokes daily. He says he quit drinking recently and his last drink was nearly a week ago. Subjective/Events-last exam He is vomiting upon my arrival. He continues to have chest pain. Objective Exam Vital Signs Vital Signs Date Time Temp Pulse Resp B/P (MAP) Pulse Ox O2 Delivery O2 Flow Rate FiO2 05/29/21 08:34 36.2 70 16 153/94 96 Room Air 05/28/21 13:33 3.00 Capillary Refill : Less Than 3 Seconds General Appearance: WD/WN, Moderate Distress (vomiting) Respiratory: Lungs Clear, Normal Breath Sounds, No Respiratory Distress Cardiovascular: Regular Rate, Rhythm, No Edema, No Murmur Gastrointestinal: Normal Bowel Sounds, Non Tender, Soft Extremity: Normal Inspection, Non Tender, No Pedal Edema Neurologic/Psychiatric: Alert, No Motor/Sensory Deficits Skin: Warm/Dry, Erythema Results/Procedures Lab Laboratory Tests 05/29/21 04:50 Patient resulted labs reviewed. Imaging: Reviewed Imaging Report Assessment/Plan Assessment and Plan Assess & Plan/Chief Complaint Chest pain Elevated troponin Troponin stable EKG normal Cardiology following Planning for left heart cath today due to persistent symptoms Cardiomyopathy Thoracic aortic aneurysm HTN Tobacco abuse GERD Alcohol abuse Elevated LFTs Thrombocytopenia Alcoholic liver disease Diagnosis/Problems Diagnosis/Problems (1) Chest pain Status: Acute (2) Alcohol abuse Status: Chronic (3) Thrombocytopenia Status: Acute (4) Elevated LFTs Status: Acute (5) Hepatic steatosis Status: Chronic (6) ALD (alcoholic liver disease) Status: Chronic SARAH MANRIQUEZ MD May 29, 2021 11:11
[2021-05-29] MEDS ORDERED: LIDOCAINE 1% INJ 20 ML 20 ML VIAL ONE (12:06)
[2021-05-29] MEDS ORDERED: MIDAZOLAM 5 MG/5 ML (VERSED) VIAL ONE (12:06)
[2021-05-29] MEDS ORDERED: HEParin 1000 UNIT/ML (10ML VIAL) FOR BOLUS ONE (12:06)
[2021-05-29] MEDS ORDERED: VERAPAMIL 5 MG/2 ML (CALAN) VIAL IV ONE (12:06)
[2021-05-29] MEDS ORDERED: fentaNYL INJ 100 MCG/2 ML AMP ONE (12:06)
[2021-05-29] MEDS ORDERED: NS IV 1000 ML 1,000 ML ONE (12:07)
[2021-05-29] MEDS ORDERED: NITRO DRIP 25000 MCG/D5W 0 ML IV ONE (12:07)
[2021-05-29] MEDS ORDERED: HEParin (CATH LAB) 2,000 ML IV ONE (12:07)
--- NOTE | 2021-05-29 13:02 | Pre-Op Note & Conscious Sedat ---
Pre-Operative Progress Note H&P Reviewed The H&P was reviewed, patient examined and no changes noted. Date H&P Reviewed: May 29, 2021 Time H&P Reviewed: 13:02 Pre-Op Diagnosis: Cardiomyopathy and possible NSTEMI Conscious Sedation Pre-Proced ASA Score 2 For ASA 3 and 4: Consider anesthesia and medical clearance. Also, for patients with a history of failed moderate sedation consider anesthesia. Airway Lungs Heart ASA score ASA 1: a normal healthy patient ASA 2: a patient with a mild systemic disease (mid diabetes, controlled hypertension, obesity ASA 3: a patient with a severe systemic disease that limits activity (angina, COPD, prior Myocardial infarction) ASA 4: a patient with an incapacitating disease that is a constant threat to life (CHF, renal failure) ASA 5: a moribund patient not expected to survive 24 hrs. (ruptured aneurysm) ASA 6: a declared brain- patient whose organs are being harvested. For emergent operations, add the letter E after the classification Mallampati Classification Grade 2 Sedation Plan Analgesia, Amnesia, Plan communicated to team members, Discussed options with patient/fam, Discussed risks with patient/fam The patient is an appropriate candidate to undergo the planned procedure, sedation, and anesthesia. The patient immediately re-assessed prior to indication. MANUEL VIGIL JR, MD May 29, 2021 13:02
[2021-05-29] MEDS ORDERED: diphenhydrAMINE 50 MG/ML INJ (BENADRYL) ONE (13:19)
[2021-05-29] MEDS ORDERED: MIDAZOLAM 2 MG/2 ML (VERSED) VIAL ONE (13:33)
[2021-05-29] MEDS ORDERED: PATIENT MAY USE OWN MEDS, ALL PO SCH (13:45)
[2021-05-29] MEDS ORDERED: NS IV 1000 ML 1,000 ML IV SCH (13:45)
--- NOTE | 2021-05-29 13:50 | Cardiac Cath Report ---
CARDIAC CATHETERIZATION DATE OF PROCEDURE: 05/29/2021 INDICATION: Cardiomyopathy and abnormal troponin level. HISTORY: The patient is a 66 year old male with no known history of coronary artery disease. In April 2021 he was evaluated in the outside hospital with a stress test and echocardiogram after he was admitted with chest pain. His echocardiogram and stress test both showed an ejection fraction in the 40-45% range and his nuclear stress test showed normal myocardial perfusion. He was admitted to our hospital due to chest discomfort. He was found to have mildly elevated troponin levels without ischemic changes on his electrocardiogram. He was placed on aspirin and beta-jennifer. He continued to have ongoing chest discomfort. Therefore, he is now referred for further evaluation with a cardiac catheterization. PROCEDURES PERFORMED: 1. Left heart catheterization with hemodynamic measurements. 2. Diagnostic [place] coronary angiography. PROCEDURE DESCRIPTION: After informed consent and in the fasting state, left heart catheterization was performed through the right femoral artery utilizing a 6 Indonesian system by percutaneous approach. I did attempt ultrasound-guided access of the right radial artery but could not locate the right radial artery with ultrasound. Therefore, I changed over to the right femoral arterial approach. Standard 6 Indonesian Cole catheters were utilized for the diagnostic portion of the procedure. All catheters were exchanged over a guidewire. Following the procedure, a right femoral angiogram demonstrated the sheath to be above the bifurcation. A Mynx closure device was deployed with good hemostasis. RESULTS: HEMODYNAMICS: The aortic pressure was 143/85 mmHg. The left ventricular pressure was 139/0 mmHg with a left ventricular end-diastolic pressure of 20 mmHg. There was no significant pressure gradient upon pullback across aortic valve. CORONARY ANGIOGRAPHY: Left main coronary artery: Free of significant disease. Left anterior descending coronary artery: Mildly calcified in the proximal segment but free of significant disease. Left circumflex coronary artery: Small and free of significant disease. Right coronary artery: Dominant and free of significant disease. IMPRESSION: 1. Mild systemic hypertension with elevated left ventricular end-diastolic pressure. 2. Angiographically normal-appearing coronary arteries in a right dominant system other than some mild calcification in the proximal left anterior descending coronary artery but no significant intraluminal plaque. 3. The patient is known to have mild left ventricular systolic dysfunction with a calculated ejection fraction of 44% by nuclear stress test done at [facility] on 04/29/2021. 4. The patient is most likely having noncardiac chest pain. Certain portions of this document may have been dictated utilizing voice recognition technology. Inherent to this technology, typographical and grammatical errors may exist. As much as I am diligent to identify and correct these mistakes, some errors may remain in the document. MANUEL VIGIL JR, MD May 29, 2021 13:50
[2021-05-30] MEDS ORDERED: lisINopril 5 MG (PRINIVIL) TABLET PO SCH (09:00)
--- NOTE | 2021-05-31 01:38 | ED Syncope ---
General Chief Complaint: Trauma-Non Activation Stated Complaint: SYNCOPE,CP,ELEVATED TROPONIN,ALCOHOL ABUSE, Nursing Triage Note: Pt reports he blacked out after trying to get out of bed at approx 2044. He then crawled on his stomach with arm and legs to phone.He then called EMS. He admits that he does not remember much after that and is having 10/10 back pain. He is in c-collar and alert at this time Source of Information: Patient (LIMITED / DIFFICULT HISTORIAN) History of Present Illness Date Seen by Provider: May 27, 2021 Time Seen by Provider: 22:10 Initial Comments PT ARRIVES VIA EMS FROM HOME, WITH CERVICAL COLLAR IN PLACE PT STATES HE WAS TRYING TO GET OUT OF BED AND "BLACKED OUT" STATES HE DOES NOT REMEMBER ANYTHING ABOUT IT, EXCEPT WAKING UP ON THE FLOOR C/O SEVERE BACK PAIN --HAS CHRONIC BACK PAIN NO PARESTHESIAS OR MOTOR DEFICITS DENIES HEAD PAIN DENIES VISION CHANGES NO DIZZINESS NO NAUSEA/VOMITING NO CHEST OR ABDOMINAL PAIN NO EXTREMITY PAIN NO LOSS OF BOWELS OR BLADDER CONTROL DENIES SWEATS DENIES SHORTNESS OF BREATH DENIES CHEST PAIN AT THIS TIME DENIES SWELLING IN LEGS / FEET NO FEVER OR RECENT ILLNESS NO COUGH PT WAS HERE YESTERDAY/EARLY THIS AM FOR CHEST PAIN, AND THEN LEFT AMA. PT STATES HE HAS NE IN THE PAST--WAS IN [place] AT THAT TIME. PT STATES HE DID NOT HAVE A CARDIAC CATH OR ANY INTERVENTION PT HAS ALSO HAD A STROKE IN THE PAST, WITH MILD RIGHT SIDE RESIDUAL WEAKNESS. PT HAS BEEN HERE 6 TIMES SINCE 03/11/21 PT HAS LONG HISTORY OF ALCOHOLISM, IN ADDITION TO SMOKING PT CLAIMS HE HAS NOT HAD ANY ALCOHOL SINCE LEAVING ER THIS AM PT STATES HE IS NOT ON ASPIRIN OR BLOOD THINNERS PCP: DR. GRANADOS DOES NOT HAVE A ROPEMAN OR NEUROLOGIST Allergies and Home Medications Allergies Coded Allergies: Penicillins (Verified Allergy, Unknown, 10/17/13) morphine (Verified Allergy, Unknown, pt has received Hydromorphone in the past, 03/18/21) Patient Home Medication List Home Medication List Reviewed: Yes Amitriptyline HCl (Amitriptyline HCl) 50 Mg Tablet, 50 MG PO HS Prescribed by: SARAH MANRIQUEZ on 03/21/21 1133 Aspirin (Aspirin EC) 81 Mg Tablet., 81 MG PO DAILY, (Reported) Entered as Reported by: AURORA GUAMAN on 03/15/21 0959 Pantoprazole Sodium (Pantoprazole Sodium) 40 Mg Tablet.dr, 40 MG PO DAILY Prescribed by: SARAH MANRIQUEZ on 03/21/21 1133 Review of Systems Constitutional: no symptoms reported EENTM: no symptoms reported Respiratory: no symptoms reported Cardiovascular: No chest pain; syncope Gastrointestinal: no symptoms reported Genitourinary: no symptoms reported Musculoskeletal: see HPI, back pain Skin: no symptoms reported Psychiatric/Neurological: See HPI; Denies Headache; Tremors Past [id number]-Lhhgig-Qyygyw Hx Patient Social History Tobacco Use?: Yes Tobacco type used: Cigarettes Smoking Status: Heavy Tobacco Smoker Substance use?: No Substance frequency: Daily Alcohol Use?: Yes Alcohol type: Beer Alcohol Frequency: Daily Pt feels they are or have been: No Immunizations Up To Date Tetanus Booster (TDap): Less than 5yrs PED Vaccines UTD: No Influenza Vaccine Up-to-Date: Yes; Up-to-Date First/Initial COVID19 Vaccinat: 2020 Second COVID19 Vaccination Loc: 2020 Past Medical History Surgery/Hospitalization HX: PATIENT UNSURE Surgeries: Yes Orthopedic Respiratory: Yes (History of traumatic pneumothorax) Asthma Cardiac: No Neurological: Yes (MILD RIGHT SIDE WEAKNESS) Stroke Genitourinary: No Gastrointestinal: Yes Pancreatitis, Gall Bladder Disease Musculoskeletal: Yes Back Injury, Chronic Back Pain, Fractures Endocrine: No HEENT: No Cancer: No Psychosocial: Yes (Alcohol dependence) Adverse Reaction/Blood Tranf: No Family Medical History History of - respiratory disease 03 FATHER (EMPHYSEMIA) GI Disease Physical Exam Vital Signs Vital Signs - First Documented 05/27/21 05/27/21 22:10 22:15 Temp 36.9 Pulse 88 Resp 20 B/P (MAP) 140/102 (115) O2 Delivery Room Air Capillary Refill : Less Than 3 Seconds Height, Weight, BMI Height: 6'1.00" Weight: 211lbs. 0.5oz. 95.657309ip; 185.35 BMI Method:Stated General Appearance: No Apparent Distress, WD/WN, Other (TREMULOUS; UNKEMPT, REEKS OF CIGARETTES; TALKS NON-STOP; DOES NOT APPEAR TO BE IN ANY DISCOMFORT OR DISTRESS ) HEENT: PERRL/EOMI, TMs Normal Neck: Other (IN CERVICAL COLLAR ON ARRIVAL. NO EXTERNAL EVIDENCE OF TRAUMA TO HEAD) Cardiovascular: Regular Rate, Rhythm, No Edema, No JVD, No Murmur, Normal Peripheral Pulses Respiratory: Chest Non Tender, Normal Breath Sounds, No Accessory Muscle Use, No Respiratory Distress Gastrointestinal: Non Tender, Soft Back: Other (DIFFUSE BACK TENDERNESS. 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 Norm as Tested, Other (VERY MILD RIGHT SIDE WEAKNESS--RESIDUAL FROM PRIOR CVA) Motor/Sensory: No Motor Deficit, No Sensory Deficit Skin: Normal Color, Warm/Dry Progress/Results/Core Measures Results/Orders Lab Results Laboratory Tests Test 05/27/21 22:42 05/27/21 23:22 Range/Units White Blood Count 5.7 4.3-11.0 10^3/uL Red Blood Count 5.08 4.30-5.52 10^6/uL Hemoglobin 16.8 13.3-17.7 g/dL Hematocrit 50 40-54 % Mean Corpuscular Volume 98 80-99 fL Mean Corpuscular Hemoglobin 33 25-34 pg Mean Corpuscular Hemoglobin Concent 34 32-36 g/dL Red Cell Distribution Width 13.9 10.0-14.5 % Platelet Count 60 L 130-400 10^3/uL Mean Platelet Volume 13.1 H 9.0-12.2 fL Immature Granulocyte % (Auto) 0 % Neutrophils (%) (Auto) 79 H 42-75 % Lymphocytes (%) (Auto) 9 L 12-44 % Monocytes (%) (Auto) 9 0-12 % Eosinophils (%) (Auto) 3 0-10 % Basophils (%) (Auto) 1 0-10 % Neutrophils # (Auto) 4.5 1.8-7.8 10^3/uL Lymphocytes # (Auto) 0.5 L 1.0-4.0 10^3/uL Monocytes # (Auto) 0.5 0.0-1.0 10^3/uL Eosinophils # (Auto) 0.2 0.0-0.3 10^3/uL Basophils # (Auto) 0.0 0.0-0.1 10^3/uL Immature Granulocyte # (Auto) 0.0 0.0-0.1 10^3/uL Percent Immature Platelet Fraction 14.3 H 0.0-7.6 % Erythrocyte Sedimentation Rate 1 0-30 MM/HR B-Type Natriuretic Peptide 29.9 <100.0 PG/ML Prothrombin Time 13.4 12.2-14.7 SEC INR Comment 1.0 0.8-1.4 Activated Partial Thromboplast Time 25 24-35 SEC D-Dimer 0.84 H 0.00-0.49 UG/ML Sodium Level 136 135-145 MMOL/L Potassium Level 4.3 3.6-5.0 MMOL/L Chloride Level 96 L 98-107 MMOL/L Carbon Dioxide Level 19 L 21-32 MMOL/L Anion Gap 21 H 5-14 MMOL/L Blood Urea Nitrogen 13 7-18 MG/DL Creatinine 0.95 0.60-1.30 MG/DL Estimat Glomerular Filtration Rate 80 BUN/Creatinine Ratio 14 Glucose Level 83 70-105 MG/DL Calcium Level 9.0 8.5-10.1 MG/DL Corrected Calcium 8.7 8.5-10.1 MG/DL Magnesium Level 1.7 1.6-2.4 MG/DL Total Bilirubin 1.7 H 0.1-1.0 MG/DL Aspartate Amino Transf (AST/SGOT) 160 H 5-34 U/L Alanine Aminotransferase (ALT/SGPT) 149 H 0-55 U/L Alkaline Phosphatase 61 40-136 U/L Total Creatine Kinase 190 30-200 U/L Creatine Kinase MB 8.9 *H <6.6 NG/ML Myoglobin 104.8 H 10.0-92.0 NG/ML Troponin I 0.036 H <0.028 NG/ML C-Reactive Protein High Sensitivity 0.62 H 0.00-0.50 MG/DL Total Protein 7.4 6.4-8.2 GM/DL Albumin 4.4 3.2-4.5 GM/DL Amylase Level 43 25-125 U/L Lipase 27 8-78 U/L Serum Alcohol < 10 <10 MG/DL My Orders Orders - MEG ALEXANDER DO Ed Iv/Invasive Line Start (05/27/21 22:15) Ekg Tracing (05/27/21 22:15) Monitor-Rhythm Ecg Trace Only (05/27/21 22:15) Alcohol (05/27/21 22:15) BNP (05/27/21 22:15) Cbc With Automated Diff (05/27/21 22:15) Comprehensive Metabolic Panel (05/27/21 22:15) Creatine Kinase (05/27/21 22:15) Creatine Kinase Mb (05/27/21 22:15) Hs C Reactive Protein (05/27/21 22:15) Fibrin Degradation Products (05/27/21 22:15) Drug Screen Stat (Urine) (05/27/21 22:15) Magnesium (05/27/21 22:15) Protime With Inr (05/27/21 22:15) Partial Thromboplastin Time (05/27/21 22:15) Ua Culture If Indicated (05/27/21 22:15) Erythrocyte Sedimentation Rate (05/27/21 22:15) Myoglobin Serum (05/27/21 22:15) Troponin I (05/27/21 22:15) Chest 1 View, Ap/Pa Only (05/27/21 22:15) Pelvis (05/27/21 22:15) Ct Head/Cervical Spine Wo (05/27/21 22:15) Ct Thoracic/Lumbar Spine Wo (05/27/21 22:15) Amylase (05/27/21 22:17) Lipase (05/27/21 22:17) Ondansetron Injection (Zofran Injectio (05/27/21 22:45) Ed Iv/Invasive Line Start (05/27/21 23:57) Lactated Ringers (Lr 1000 Ml Iv Solution (05/28/21 00:00) Lactated Ringers (Lr 1000 Ml Iv Solution (05/27/21 23:58) Vital Signs/I&O 05/27/21 05/27/21 22:10 22:15 Temp 36.9 36.9 Pulse 88 Resp 20 B/P (MAP) 140/102 (115) O2 Delivery Room Air Blood Pressure Mean: 138 Progress Progress Note : Progress Note NO DETERIORATION IN PT'S CONDITION DURING ER STAY PT AGREES TO BE ADMITTED FOR FURTHER EVALUATION JUST PRIOR TO ADMIT, PT NOW STATES HE WAS HAVING CHEST PAIN BEFORE HE PASSED OUT. DENIES CHEST PAIN NOW. Initial ECG Impression Date: May 27, 2021 Initial ECG Impression Time: 22:22 Initial ECG Rate: 84 Initial ECG Rhythm: Normal Sinus Initial ECG Impression: Nonspecific Changes Diagnostic Imaging Comments ALL PER RADIOLOGIST REPORTS AT 2322 CXR-- FINDINGS: Lung volumes are normal. No consolidation is seen. There is no pleural effusion or pneumothorax. The cardiac silhouette is normal in size. No displaced rib fracture is seen. IMPRESSION: 1. No acute pulmonary abnormality. PELVIS XRAY- FINDINGS: No acute fracture or dislocation is seen in the pelvis. Alignment is normal. There is mild degenerative change in the hip joints bilaterally. Bilateral sacroiliac joints are patent. IMPRESSION: 1. No acute osseous abnormality is seen on this single view of the pelvis. CT HEAD/CERVICAL SPINE-- FINDINGS: CT HEAD: The ventricles and cortical sulci are mildly prominent, likely from generalized parenchymal volume loss. There is no midline shift or mass effect. No acute intracranial hemorrhage is seen. There is no CT evidence of acute territorial ischemia. The calvarium appears intact. Visualized paranasal sinuses are clear. Cervical spine: There is mild reversal of the cervical lordosis with trace anterolisthesis at C7-T1. There is severe degenerative change at C5-C6 and C6-C7. Vertebral body heights are preserved. No acute fracture is seen. Soft tissues about the neck demonstrate no acute abnormality. The lung apices are clear. IMPRESSION: 1. No acute intracranial hemorrhage or calvarium fracture. 2. Degenerative changes in the cervical spine with no acute fracture seen. CT THORACIC/LUMBAR SPINE-- FINDINGS: Thoracic spine: Alignment of the thoracic spine appears normal with no spondylolisthesis. Vertebral body heights are preserved. There are mild degenerative changes in the thoracic spine. No bony fragments or hyperdense fluid collections are seen in the spinal canal. No acute fracture is seen. Surrounding soft tissues demonstrate no acute abnormality. There is dependent atelectasis in the lungs. There is fatty infiltration of the liver. Lumbar spine: Alignment of the lumbar spine appears normal. There are moderate degenerative changes. Vertebral body heights are preserved. No fracture is seen. No bony fragments or hyperdense fluid collections are seen in the spinal canal. No acute abnormality is seen in the surrounding soft tissues. There are a few nonobstructing calculi in the kidneys. IMPRESSION: 1. Degenerative changes in the thoracic and lumbar spine with no acute osseous abnormality seen. Reviewed: Reviewed by Ms Departure Communication (Admissions) [id number]--CALLED DR. MANRIQUEZ, HOSPITALIST, LEFT MESSAGE [phone]--SPOKE WITH DR. MANRIQUEZ, ACCEPTS PT FOR ADMIT. WILL CONSULT ROPEMAN IN AM Impression Primary Impression: Episode of syncope Additional Impressions: Elevated troponin Elevated liver enzymes Alcoholism Hx of coronary artery disease Exacerbation of chronic back pain Chest pain Disposition: ADMITTED INPATIENT Condition: Stable Admissions Decision to Admit Reason: Admit from ER (General) Decision to Admit/Date: May 28, 2021 Time/Decision to Admit Time: 00:05 Departure-Patient Inst. Referrals: TIANNA GRANADOS DO (PCP) Primary Care Physician Patient Instructions: Chest Pain (DC) MEG ALEXANDER DO May 31, 2021 01:38
== END 2021-05-29 17:50 | disposition home or self-care (01) | DRG 287 ==
LOC: EDUNIT# 22:05 → ER 22:07 → CSD 05-28 00:05
PROVIDERS: ADMIT Internal Medicine; ATTEND Internal Medicine
PROC: 4A023N7 Measurement of Cardiac Sampling and Pressure, Left Heart, Percutaneous Approach (ICD-10-PCS; principal; 2021-05-29)
PROC: B2111ZZ Fluoroscopy of Multiple Coronary Arteries using Low Osmolar Contrast (ICD-10-PCS; 2021-05-29)
DX: R07.89 Other chest pain (principal); I42.9 Cardiomyopathy, unspecified; F10.10 Alcohol abuse, uncomplicated; D69.6 Thrombocytopenia, unspecified; K76.0 Fatty (change of) liver, not elsewhere classified; K70.9 Alcoholic liver disease, unspecified; I25.10 Atherosclerotic heart disease of native coronary artery without angina pectoris; Z86.73 Personal history of transient ischemic attack (TIA), and cerebral infarction without residual deficits; R91.1 Solitary pulmonary nodule; F17.210 Nicotine dependence, cigarettes, uncomplicated; R77.8 Other specified abnormalities of plasma proteins; I71.2 Thoracic aortic aneurysm, without rupture; I10 Essential (primary) hypertension; K21.9 Gastro-esophageal reflux disease without esophagitis
CPT/HCPCS: 36415; 70450; 71045; 72125; 72128; 72131; 72170; 80053; 80061; 80306; 80320; 81000; 82150; 82550; 82553; 83690; 83735; 83874; 83880; 84484; 85025; 85027; 85379; 85610; 85652; 85730; 86141; 87081; 93005; 93041; 93458; 94760; 96374

== ENCOUNTER 2021-06-12 16:45 | Emergency (ER) | payer MEDICARE ==
[~2021-06-12] VITALS: Ht 187 cm; Wt 122.0 kg
[2021-06-12 17:15] LABS: BASOPHILS % (AUTO) 1 % (0-10); EOSINOPHILS # (AUTO) 0.1 10^3/uL (0.0-0.3); EOSINOPHILS % (AUTO) 2 % (0-10); HEMATOCRIT 49 % (40-54); HEMOGLOBIN 16.6 g/dL (13.3-17.7); LYMPHOCYTES # (AUTO) 1.7 10^3/uL (1.0-4.0); LYMPHOCYTES % (AUTO) 37 % (12-44); MEAN CORPUSCULAR HEMOGLOBIN 33 pg (25-34); MEAN CORPUSCULAR HGB CONC 34 g/dL (32-36); MEAN CORPUSCULAR VOLUME 97 fL (80-99); MEAN PLATELET VOLUME 11.3 fL (9.0-12.2); MONOCYTES # (AUTO) 0.3 10^3/uL (0.0-1.0); MONOCYTES % (AUTO) 7 % (0-12); NEUTROPHILS # (AUTO) 2.4 10^3/uL (1.8-7.8); NEUTROPHILS % (AUTO) 52 % (42-75); PLATELET COUNT 151 10^3/uL (130-400); WHITE BLOOD COUNT 4.6 10^3/uL (4.3-11.0)
[2021-06-12] MEDS ORDERED: NS IV 1000 ML 1,000 ML IV SCH (17:15)
[2021-06-12 17:21] LABS: ALBUMIN 4.3 GM/DL (3.2-4.5); PROTHROMBIN TIME PATIENT 13.5 SEC (12.2-14.7)
[2021-06-12 17:22] LABS: POTASSIUM 3.7 MMOL/L (3.6-5.0)
[2021-06-12 17:23] LABS: CALCIUM 8.5 MG/DL (8.5-10.1)
[2021-06-12 17:24] LABS: TOTAL PROTEIN 7.5 GM/DL (6.4-8.2)
[2021-06-12 17:26] LABS: BILIRUBIN,TOTAL 0.5 MG/DL (0.1-1.0)
[2021-06-12 17:27] LABS: CREATININE SERUM 0.86 MG/DL (0.60-1.30)
[2021-06-12 17:31] LABS: MAGNESIUM 2.1 MG/DL (1.6-2.4)
[2021-06-12 17:45] VITALS: BP 154/104
--- NOTE | 2021-06-12 17:47 | Diagnostic Imaging Report ---
EXAMINATION: Chest 1 view. HISTORY: Chest pain. Fall. COMPARISON: 05/27/2021. FINDINGS: The lung volumes are normal. No focal consolidation is seen. No large pleural effusion or pneumothorax is seen. The cardiomediastinal silhouette is normal in size and contour. No acute osseous abnormality is seen. IMPRESSION: No acute pleuroparenchymal process. Dictated by: Dictated on workstation # [id number]
--- NOTE | 2021-06-12 17:47 | Diagnostic Imaging Report ---
PROCEDURE: CT head and CT cervical spine without contrast. TECHNIQUE: Multiple contiguous axial images were obtained through the brain and cervical spine without the use of intravenous contrast. Sagittal and coronal reformations through the cervical spine were then performed. Auto Exposure Controls were utilized during the CT exam to meet ALARA standards for radiation dose reduction. INDICATION: Fall. Head and neck pain. Scalp contusion. COMPARISON: 05/27/2021. FINDINGS: CT HEAD: No large acute territorial ischemia, mass, or hemorrhage. No midline shift or mass effect. The ventricles, cortical sulci, and basilar cisterns are patent and unremarkable. The calvarium is intact. Retained secretions are seen in the left maxillary and bilateral ethmoid sinuses. The mastoid air cells are clear. CT CERVICAL SPINE: No acute fracture or dislocation is seen in the cervical spine. No focal osseous lesions. Vertebral body heights are well-maintained. The craniocervical junction is well-maintained. Moderate degenerative changes are seen in the cervical spine with disc osteophyte complexes and uncovertebral arthropathy. Soft tissues of the neck are unremarkable. The included lung apices are clear. IMPRESSION: 1. No hemorrhage or focal intra-axial mass. No CT evidence of large acute territorial ischemia. 2. No acute fracture or dislocation in the cervical spine. Dictated by: Dictated on workstation # [id number]
--- NOTE | 2021-06-12 19:08 | ED Chest Pain ---
General Chief Complaint: Cardiac/General Problems Stated Complaint: FALL/CP Nursing Triage Note: Patient presented to the ER tonight via private vehicle with complaints of chest pain. Patient states he fell at some point but is unsure when. Source: patient Exam Limitations: no limitations History of Present Illness Date Seen by Provider: Jun 12, 2021 Time Seen by Provider: 16:50 Initial Comments This 66-year-old male presents to the emergency room with complaints of chest pain. As he was being roomed he suddenly had a syncopal episode and fell face down onto the bed. He was completely unresponsive without respirations or pulse and was becoming cyanotic. CPR was initiated and about 20 chest compressions were performed. Patient started responding after that and regained pulse. Patient has alcohol dependence and appears intoxicated on first presentation. He also reports waking up this morning and feeling his heart racing and then falling and hitting his head hard. He reports neck pain as well. C-collar was applied. Allergies and Home Medications Allergies Coded Allergies: Penicillins (Verified Allergy, Unknown, 10/17/13) morphine (Verified Allergy, Unknown, pt has received Hydromorphone in the past, 03/18/21) Patient Home Medication List Amitriptyline HCl (Amitriptyline HCl) 50 Mg Tablet, 50 MG PO HS Prescribed by: SARAH MANRIQUEZ on 03/21/21 1133 Aspirin (Aspirin EC) 81 Mg Tablet.dr, 81 MG PO DAILY, (Reported) Entered as Reported by: AURORA GUAMAN on 03/15/21 0959 Pantoprazole Sodium (Pantoprazole Sodium) 40 Mg Tablet.dr, 40 MG PO DAILY Prescribed by: SARAH MANRIQUEZ on 03/21/21 1133 Past Tsabzkp-Jnwaph-Ofytaw Hx Patient Social History Tobacco Use?: No Substance use?: No Alcohol Use?: Yes Alcohol type: Hard Liquor Alcohol Frequency: Couple times a week Immunizations Up To Date Tetanus Booster (TDap): Less than 5yrs PED Vaccines UTD: No First/Initial COVID19 Vaccinat: 2020 Second COVID19 Vaccination Loc: 2020 Third COVID19 Vaccination Date: 2020 Past Medical History Surgery/Hospitalization HX: PATIENT UNSURE Surgeries: Yes Orthopedic Respiratory: Yes (History of traumatic pneumothorax) Asthma Cardiac: No Neurological: Yes (MILD RIGHT SIDE WEAKNESS) Stroke Genitourinary: No Gastrointestinal: Yes Pancreatitis, Gall Bladder Disease Musculoskeletal: Yes Back Injury, Chronic Back Pain, Fractures Endocrine: No HEENT: No Cancer: No Psychosocial: Yes (Alcohol dependence) Adverse Reaction/Blood Tranf: No Family Medical History History of - respiratory disease 03 FATHER (EMPHYSEMIA) GI Disease Physical Exam Vital Signs Vital Signs - First Documented 06/12/21 06/12/21 16:49 17:45 Temp 36.8 Pulse 94 Resp 12 B/P (MAP) 154/104 (121) Pulse Ox 96 O2 Delivery Nasal Cannula O2 Flow Rate 3.00 FiO2 100 Capillary Refill : Less Than 3 Seconds Height, Weight, BMI Height: 6'1.00" Weight: 211lbs. 0.5oz. 95.879765jl; 34.00 BMI Method:Stated Progress/Results/Core Measures Results/Orders Lab Results Laboratory Tests Test 06/12/21 16:55 Range/Units White Blood Count 4.6 4.3-11.0 10^3/uL Red Blood Count 5.01 4.30-5.52 10^6/uL Hemoglobin 16.6 13.3-17.7 g/dL Hematocrit 49 40-54 % Mean Corpuscular Volume 97 80-99 fL Mean Corpuscular Hemoglobin 33 25-34 pg Mean Corpuscular Hemoglobin Concent 34 32-36 g/dL Red Cell Distribution Width 14.7 H 10.0-14.5 % Platelet Count 151 130-400 10^3/uL Mean Platelet Volume 11.3 9.0-12.2 fL Immature Granulocyte % (Auto) 0 % Neutrophils (%) (Auto) 52 42-75 % Lymphocytes (%) (Auto) 37 12-44 % Monocytes (%) (Auto) 7 0-12 % Eosinophils (%) (Auto) 2 0-10 % Basophils (%) (Auto) 1 0-10 % Neutrophils # (Auto) 2.4 1.8-7.8 10^3/uL Lymphocytes # (Auto) 1.7 1.0-4.0 10^3/uL Monocytes # (Auto) 0.3 0.0-1.0 10^3/uL Eosinophils # (Auto) 0.1 0.0-0.3 10^3/uL Basophils # (Auto) 0.0 0.0-0.1 10^3/uL Immature Granulocyte # (Auto) 0.0 0.0-0.1 10^3/uL Prothrombin Time 13.5 12.2-14.7 SEC INR Comment 1.0 0.8-1.4 Activated Partial Thromboplast Time 20 L 24-35 SEC Sodium Level 142 135-145 MMOL/L Potassium Level 3.7 3.6-5.0 MMOL/L Chloride Level 103 98-107 MMOL/L Carbon Dioxide Level 23 21-32 MMOL/L Anion Gap 16 H 5-14 MMOL/L Blood Urea Nitrogen 8 7-18 MG/DL Creatinine 0.86 0.60-1.30 MG/DL Estimat Glomerular Filtration Rate 89 BUN/Creatinine Ratio 9 Glucose Level 101 70-105 MG/DL Calcium Level 8.5 8.5-10.1 MG/DL Corrected Calcium 8.3 L 8.5-10.1 MG/DL Magnesium Level 2.1 1.6-2.4 MG/DL Total Bilirubin 0.5 0.1-1.0 MG/DL Aspartate Amino Transf (AST/SGOT) 103 H 5-34 U/L Alanine Aminotransferase (ALT/SGPT) 103 H 0-55 U/L Alkaline Phosphatase 68 40-136 U/L Myoglobin 56.8 10.0-92.0 NG/ML Troponin I 0.032 H <0.028 NG/ML Total Protein 7.5 6.4-8.2 GM/DL Albumin 4.3 3.2-4.5 GM/DL Serum Alcohol 320 *H <10 MG/DL My Orders Orders - SALLY SHEIKH MD Cbc With Automated Diff (06/12/21 16:57) Magnesium (06/12/21 16:57) Chest 1 View, Ap/Pa Only (06/12/21 16:57) Ekg Tracing (06/12/21 16:57) Comprehensive Metabolic Panel (06/12/21 16:57) Myoglobin Serum (06/12/21 16:57) Protime With Inr (06/12/21 16:57) Partial Thromboplastin Time (06/12/21 16:57) O2 (06/12/21 16:57) Monitor-Rhythm Ecg Trace Only (06/12/21 16:57) Lipid Panel (06/13/21 06:00) Ed Iv/Invasive Line Start (06/12/21 16:57) Troponin I [place] (06/12/21 16:57) Ct Head/Cervical Spine Wo (06/12/21 16:57) Alcohol (06/12/21 16:57) Ns Iv 1000 Ml (Sodium Chloride 0.9%) (06/12/21 17:15) Vital Signs/I&O 06/12/21 06/12/21 16:49 17:45 Temp 36.8 Pulse 94 Resp 12 B/P (MAP) 154/104 (121) Pulse Ox 96 96 O2 Delivery Nasal Cannula Nasal Cannula O2 Flow Rate 3.00 3.00 FiO2 100 Blood Pressure Mean: 121 Progress Progress Note : Time: 19:05 Progress Note Patient states his chest pain has resolved. He was cleared from a trauma perspective and c-collar was removed after reviewing CT reports. I explained to him the plan for admission due to his brief cardiac arrest. Patient is refusing admission at this time. I very clearly explained to him that he could at any time have another episode and that another episode may be fatal. He expresses understanding and states that "if something happens is not on you". I offered him an opportunity to change his mind multiple times, but he is very insistent that he wants to leave despite acknowledging a life-threatening problem. Patient was provided AMA papers to sign. Initial ECG Impression Date: Jun 12, 2021 Initial ECG Impression Time: 16:49 Initial ECG Rate: 93 Initial ECG Rhythm: Normal Sinus Comment Sinus rhythm with no diagnostic ST elevation or depression. Minimal ST changes are similar to prior. No abnormal intervals or axis deviation. Diagnostic Imaging Diagonstic Imaging: CT Plain Films/CT/US/NM/MRI: c-spine, head Comments NAME: AGUSTIN LOZA [facility] REC#: [id number] PT STATUS: REG ER : 1955 PHYSICIAN: SALLY SHEIKH MD ADMIT DATE: 06/12/21/ER Signed Date of Exam:06/12/21 CT HEAD/CERVICAL SPINE WO PROCEDURE: CT head and CT cervical spine without contrast. TECHNIQUE: Multiple contiguous axial images were obtained through the brain and cervical spine without the use of intravenous contrast. Sagittal and coronal reformations through the cervical spine were then performed. Auto Exposure Controls were utilized during the CT exam to meet ALARA standards for radiation dose reduction. INDICATION: Fall. Head and neck pain. Scalp contusion. COMPARISON: 05/27/2021. FINDINGS: CT HEAD: No large acute territorial ischemia, mass, or hemorrhage. No midline shift or mass effect. The ventricles, cortical sulci, and basilar cisterns are patent and unremarkable. The calvarium is intact. Retained secretions are seen in the left maxillary and bilateral ethmoid sinuses. The mastoid air cells are clear. CT CERVICAL SPINE: No acute fracture or dislocation is seen in the cervical spine. No focal osseous lesions. Vertebral body heights are well-maintained. The craniocervical junction is well-maintained. Moderate degenerative changes are seen in the cervical spine with disc osteophyte complexes and uncovertebral arthropathy. Soft tissues of the neck are unremarkable. The included lung apices are clear. IMPRESSION: 1. No hemorrhage or focal intra-axial mass. No CT evidence of large acute territorial ischemia. 2. No acute fracture or dislocation in the cervical spine. Dictated by: Dictated on workstation # [id number] Dict: 06/12/211738 Trans: 06/12/211750 [facility] [id number] Interpreted by: SDUHIR MCKEON DO Electronically signed by: SUDHIR MCKEON DO 06/12/211750 Comments NAME: AGUSTIN LOZA [facility] REC#: [id number] PT STATUS: REG ER : 1955 PHYSICIAN: SALLY SHEIKH MD ADMIT DATE: 06/12/21/ER Signed Date of Exam:06/12/21 CHEST 1 VIEW, AP/PA ONLY EXAMINATION: Chest 1 view. HISTORY: Chest pain. Fall. COMPARISON: 05/27/2021. FINDINGS: The lung volumes are normal. No focal consolidation is seen. No large pleural effusion or pneumothorax is seen. The cardiomediastinal silhouette is normal in size and contour. No acute osseous abnormality is seen. IMPRESSION: No acute pleuroparenchymal process. Dictated by: Dictated on workstation # [id number] Dict: 06/12/211740 Trans: 06/12/211750 [facility] [id number] Interpreted by: SUDHIR MCKEON DO Electronically signed by: SUDHIR MCKEON DO 06/12/21 1755 Departure Impression Primary Impression: Cardiac arrest Additional Impressions: Chest pain Left against medical advice Departure-Patient Inst. Referrals: TIANNA GRANADOS DO (PCP/Family) Primary Care Physician SALLY SHEIKH MD Jun 12, 2021 19:08
== END 2021-06-12 19:00 | disposition left against medical advice (07) ==
LOC: EDUNIT# 16:45 → ER 16:46
DX: I46.9 Cardiac arrest, cause unspecified (principal); J45.909 Unspecified asthma, uncomplicated; G89.29 Other chronic pain; M54.9 Dorsalgia, unspecified; Z79.82 Long term (current) use of aspirin
CPT/HCPCS: 70450; 71045; 72125; 80053; 83735; 83874; 84484; 85025; 85610; 85730; 93005; 93041; 99284; G0480; 36415; 80320

== ENCOUNTER 2021-06-15 02:19 | Emergency (ER) | payer MEDICARE ==
[2021-06-15] MEDS ORDERED: LACTATED RINGERS 1,000 ML IV ONE (02:30)
[2021-06-15 02:43] LABS: EOSINOPHILS # (AUTO) 0.1 10^3/uL (0.0-0.3)
[2021-06-15 02:45] LABS: BASOPHILS % (AUTO) 1 % (0-10); EOSINOPHILS % (AUTO) 2 % (0-10); HEMATOCRIT 51 % (40-54); HEMOGLOBIN 17.3 g/dL (13.3-17.7); LYMPHOCYTES # (AUTO) 1.6 10^3/uL (1.0-4.0); LYMPHOCYTES % (AUTO) 38 % (12-44); MEAN CORPUSCULAR HEMOGLOBIN 33 pg (25-34); MEAN CORPUSCULAR HGB CONC 34 g/dL (32-36); MEAN CORPUSCULAR VOLUME 97 fL (80-99); MEAN PLATELET VOLUME 11.3 fL (9.0-12.2); MONOCYTES # (AUTO) 0.4 10^3/uL (0.0-1.0); MONOCYTES % (AUTO) 9 % (0-12); NEUTROPHILS # (AUTO) 2.1 10^3/uL (1.8-7.8); NEUTROPHILS % (AUTO) 51 % (42-75); PLATELET COUNT 102 10^3/uL (130-400); WHITE BLOOD COUNT 4.2 10^3/uL (4.3-11.0)
[2021-06-15] MEDS: dilTIAZem DRIP PRE-MIX 125 ML IV SCH (02:53)
--- NOTE | 2021-06-15 02:53 | ED General ---
General Stated Complaint: WHOLE LEFT SIDE NUMB,PASSED OUT IN VEHICLE Source of Information: Patient (EXTREMELY POOR / LIMITED AND DIFFICULT HISTORIAN), Old Records History of Present Illness Date Seen by Provider: Jun 15, 2021 Time Seen by Provider: 02:19 Initial Comments PT ARRIVES VIA POV--FEMALE NEIGHBOR BROUGHT HIM, BUT CANNOT GIVE ANY INFORMATION OTHER THAN SHE THOUGHT HE WAS HAVING A STROKE. 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 PT CONSTANTLY WANTING SOMEONE TO CHECK ON THE FEMALE THAT BROUGHT HIM "TO MAKE SURE SHE'S OK--SHE'S THE LOVE OF MY LIFE"--FEMALE STATES SHE DOESN'T REALLY EVEN KNOW HIM AND JUST MET HIM 2 DAYS AGO. Allergies and Home Medications Allergies Coded Allergies: Penicillins (Verified Allergy, Unknown, 10/17/13) morphine (Verified Allergy, Unknown, pt has received Hydromorphone in the past, 03/18/21) Patient Home Medication List Amitriptyline HCl (Amitriptyline HCl) 50 Mg Tablet, 50 MG PO HS Prescribed by: SARAH MANRIQUEZ on 03/21/21 1133 Aspirin (Aspirin EC) 81 Mg Tablet., 81 MG PO DAILY, (Reported) Entered as Reported by: AURORA GUAMAN on 03/15/21 0959 Pantoprazole Sodium (Pantoprazole Sodium) 40 Mg Tablet., 40 MG PO DAILY Prescribed by: SARAH MANRIQUEZ on 03/21/21 1133 Past Pehxvxq-Olsjdb-Eebpgt Hx Immunizations Up To Date Tetanus Booster (TDap): Less than 5yrs PED Vaccines UTD: No First/Initial COVID19 Vaccinat: 2020 Second COVID19 Vaccination Loc: 2020 Third COVID19 Vaccination Date: 2020 Past Medical History Surgery/Hospitalization HX: PATIENT UNSURE Surgeries: Yes Orthopedic Respiratory: Yes (History of traumatic pneumothorax) Asthma Cardiac: No Neurological: Yes (MILD RIGHT SIDE WEAKNESS) Stroke Genitourinary: No Gastrointestinal: Yes Pancreatitis, Gall Bladder Disease Musculoskeletal: Yes Back Injury, Chronic Back Pain, Fractures Endocrine: No HEENT: No Cancer: No Psychosocial: Yes (Alcohol dependence) Adverse Reaction/Blood Tranf: No Family Medical History History of - respiratory disease 03 FATHER (EMPHYSEMIA) GI Disease Physical Exam Vital Signs Capillary Refill : Height, Weight, BMI Height: 6'1.00" Weight: 211lbs. 0.5oz. 95.289954mm; 34.00 BMI Method:Stated General Appearance: Other (REEKS OF ETOH, TALKS AND RAMBLES ON NON-STOP ABOUT EVERYTHING EXCEPT WHY HE IS HERE. ) Progress/Results/Core Measures Suspected Sepsis SIRS Temperature: Pulse: Respiratory Rate: Laboratory Tests 06/15/21 02:35: White Blood Count 4.2L Blood Pressure / Mean: Laboratory Tests 06/15/21 02:35: Platelet Count 102L Results/Orders Lab Results Laboratory Tests Test 06/15/21 02:35 Range/Units White Blood Count 4.2 L 4.3-11.0 10^3/uL Red Blood Count 5.28 4.30-5.52 10^6/uL Hemoglobin 17.3 13.3-17.7 g/dL Hematocrit 51 40-54 % Mean Corpuscular Volume 97 80-99 fL Mean Corpuscular Hemoglobin 33 25-34 pg Mean Corpuscular Hemoglobin Concent 34 32-36 g/dL Red Cell Distribution Width 14.6 H 10.0-14.5 % Platelet Count 102 L 130-400 10^3/uL Mean Platelet Volume 11.3 9.0-12.2 fL Immature Granulocyte % (Auto) 0 % Neutrophils (%) (Auto) 51 42-75 % Lymphocytes (%) (Auto) 38 12-44 % Monocytes (%) (Auto) 9 0-12 % Eosinophils (%) (Auto) 2 0-10 % Basophils (%) (Auto) 1 0-10 % Neutrophils # (Auto) 2.1 1.8-7.8 10^3/uL Lymphocytes # (Auto) 1.6 1.0-4.0 10^3/uL Monocytes # (Auto) 0.4 0.0-1.0 10^3/uL Eosinophils # (Auto) 0.1 0.0-0.3 10^3/uL Basophils # (Auto) 0.0 0.0-0.1 10^3/uL Immature Granulocyte # (Auto) 0.0 0.0-0.1 10^3/uL Percent Immature Platelet Fraction 11.4 H 0.0-7.6 % My Orders Orders - MEG ALEXANDER DO Accucheck Stat ONCE (06/15/21 02:24) Ed Iv/Invasive Line Start (06/15/21 02:24) Ekg Tracing (06/15/21 02:24) O2 (06/15/21:24) Monitor-Rhythm Ecg Trace Only (06/15/21:24) Ct Head Wo-R/O Stroke (06/15/21 02:24) Chest 1 View, Ap/Pa Only (06/15/21 02:24) Acetaminophen (06/15/21 02:24) Alcohol (06/15/21 02:24) Amylase (06/15/21 02:24) Bnp [place] (06/15/21 02:24) Cbc With Automated Diff (06/15/21 02:24) Comprehensive Metabolic Panel (06/15/21 02:24) Creatine Kinase (06/15/21:24) Creatine Kinase Mb (06/15/21 02:24) Hs C Reactive Protein (06/15/21 02:24) Fibrin Degradation Products (06/15/21 02:24) Drug Screen Stat (Urine) (06/15/21 02:24) Lipase (06/15/21:24) Magnesium (06/15/21 02:24) Protime With Inr (06/15/21 02:24) Partial Thromboplastin Time (06/15/21 02:24) Thyroid Analyzer (06/15/21 02:24) Ua Culture If Indicated (06/15/21:24) Erythrocyte Sedimentation Rate (06/15/21 02:24) Troponin I [place] (06/15/21 02:24) Ed Iv/Invasive Line Start (06/15/21 02:24) Lactated Ringers (Lr 1000 Ml Iv Solution (06/15/21 02:30) Nothing By Mouth (06/15/21 Breakfast) Accucheck Stat ONCE (06/15/21 02:24) Ed Iv/Invasive Line Start (06/15/21 02:24) Ed Iv/Invasive Line Start (06/15/21 02:24) Vital Signs Stroke Patient Q15M (06/15/21 02:24) O2 (06/15/21 02:24) Intake & Output 06,14,22 (06/15/21 02:24) Dysphagia Screening Tool (06/15/21 02:24) Lipid Panel (06/16/21 06:00) Myoglobin Serum (06/15/21 02:24) O2 (06/15/21 02:24) Lipid Panel (06/16/21 06:00) Ed Iv/Invasive Line Start (06/15/21 02:24) Diltiazem Injection (Cardizem Injection) (06/15/21 02:30) Diltiazem Drip Pre-Mix (Cardizem Drip Pr (06/15/21 02:30) Vital Signs/I&O Capillary Refill : Departure Departure-Patient Inst. Referrals: TIANNA GRANADOS DO (PCP/Family) Primary Care Physician MEG ALEXANDER DO Jun 15, 2021 02:53
[2021-06-15] MEDS: NS IV 1000 ML 1,000 ML IV SCH (02:57)
[2021-06-15 03:00] LABS: ALBUMIN 4.3 GM/DL (3.2-4.5); CHLORIDE 100 MMOL/L (98-107); POTASSIUM 3.1 MMOL/L (3.6-5.0); SODIUM 139 MMOL/L (135-145)
[2021-06-15 03:01] LABS: CALCIUM 8.4 MG/DL (8.5-10.1)
[2021-06-15 03:02] LABS: AMYLASE 88 U/L (25-125); FIBRIN DEGRADATION PRODUCTS 0.85 UG/ML (0.00-0.49)
[2021-06-15 03:03] LABS: GLUCOSE 128 MG/DL (70-105); TOTAL PROTEIN 7.4 GM/DL (6.4-8.2)
[2021-06-15 03:04] LABS: CARBON DIOXIDE 20 MMOL/L (21-32)
[2021-06-15 03:06] LABS: ALKALINE PHOSPHATASE 70 U/L (40-136)
[2021-06-15 03:07] LABS: CREATININE SERUM 0.85 MG/DL (0.60-1.30); GFR ESTIMATED 90
[2021-06-15 03:08] LABS: BUN/CREATININE RATIO 7
[2021-06-15 03:09] LABS: ALANINE AMINOTRANSFERASE 92 U/L (0-55); MAGNESIUM 1.9 MG/DL (1.6-2.4)
[2021-06-15 03:11] LABS: CREATINE KINASE 163 U/L (30-200); LIPASE 39 U/L (8-78)
[2021-06-15 03:13] LABS: ACETAMINOPHEN < 10 UG/ML (10-30)
[2021-06-15 03:18] LABS: CREATINE KINASE MB 6.1 NG/ML (<6.6)
[2021-06-15 03:27] LABS: ERYTHROCYTE SEDIMENTATION RATE 2 MM/HR (0-30)
[2021-06-15 03:30] VITALS: BP 151/112
[2021-06-15 03:30] LABS: TSH (THYROID ANALYZER) 0.57 UIU/ML (0.35-4.94)
--- NOTE | 2021-06-15 06:53 | Diagnostic Imaging Report ---
EXAMINATION: Chest radiograph, portable AP view. DATE: 06/15/2021 2:56 AM INDICATION: 66-year-old male, chest pain. COMPARISON: June 12, 2021. FINDINGS: Heart size and mediastinal contours are unchanged. There is no identified pneumothorax. There is no large pleural effusion. There is no identified focal airspace consolidation. IMPRESSION: No identified acute cardiopulmonary abnormality. Dictated by: Dictated on workstation # [id number]
--- NOTE | 2021-06-15 06:54 | Diagnostic Imaging Report ---
PROCEDURE: CT head wo r/o stroke. TECHNIQUE: Multiple contiguous axial images were obtained through the brain without the use of intravenous contrast. Auto Exposure Controls were utilized during the CT exam to meet ALARA standards for radiation dose reduction. DATE: June 15, 2021. COMPARISON: CT head and cervical spine June 12, 2021. INDICATION: 66-year-old male, syncope. FINDINGS: The ventricles and cerebral spinal fluid spaces are of normal size and configuration for the patient's age. There is no mass effect or midline shift. There is no acute intracranial hemorrhage. There is no abnormal extra-axial fluid collection. There is mild mucosal thickening of the paranasal sinuses without air-fluid level. The mastoid air cells and middle ears are well-aerated bilaterally. IMPRESSION: 1. No identified acute intracranial abnormality. Agree with provided preliminary report. Dictated by: Dictated on workstation # [id number]
== END 2021-06-15 03:46 | disposition left against medical advice (07) ==
LOC: EDUNIT# 02:19 → ER 02:23
DX: R20.0 Anesthesia of skin (principal); J45.909 Unspecified asthma, uncomplicated; Z86.73 Personal history of transient ischemic attack (TIA), and cerebral infarction without residual deficits; Z79.82 Long term (current) use of aspirin
CPT/HCPCS: 70450; 71045; 80053; 82150; 82550; 82553; 82947; 83690; 83735; 83874; 83880; 84443; 84484; 85025; 85379; 85610; 85652; 85730; 86141; 93005; 93041; 99284; G0480 ×2; 36415; 80320; 80329

== ENCOUNTER 2021-06-17 05:10 | Emergency (ER) | payer MEDICARE ==
[2021-06-17 05:13] VITALS: BP 140/98
[2021-06-17 05:27] LABS: BASOPHILS # (AUTO) 0.1 10^3/uL (0.0-0.1); BASOPHILS % (AUTO) 1 % (0-10); EOSINOPHILS # (AUTO) 0.1 10^3/uL (0.0-0.3); EOSINOPHILS % (AUTO) 3 % (0-10); HEMATOCRIT 52 % (40-54); LYMPHOCYTES # (AUTO) 1.6 10^3/uL (1.0-4.0); LYMPHOCYTES % (AUTO) 37 % (12-44); MEAN CORPUSCULAR HEMOGLOBIN 33 pg (25-34); MEAN CORPUSCULAR HGB CONC 34 g/dL (32-36); MEAN CORPUSCULAR VOLUME 97 fL (80-99); MEAN PLATELET VOLUME 12.6 fL (9.0-12.2); MONOCYTES # (AUTO) 0.4 10^3/uL (0.0-1.0); MONOCYTES % (AUTO) 8 % (0-12); NEUTROPHILS # (AUTO) 2.3 10^3/uL (1.8-7.8); NEUTROPHILS % (AUTO) 52 % (42-75); PLATELET COUNT 103 10^3/uL (130-400); WHITE BLOOD COUNT 4.4 10^3/uL (4.3-11.0)
--- NOTE | 2021-06-17 05:30 | ED Neurological Problem ---
General Stated Complaint: FALL,LEFT SIDE NUMB Source: patient Exam Limitations: no limitations (JUAN PABLO MILLARD MD) History of Present Illness Date Seen by Provider: Jun 17, 2021 Time Seen by Provider: 05:14 Initial Comments Here with report of fall this evening as well as chest pain and left-sided weakness and numbness. Has history of A. fib and has had A. fib with RVR. We have seen her multiple times recently AMA each time. He states he is not going to leave this time and he wants to get cared for. Reports central chest pain. Admits to drinking a few shots of alcohol tonight. Reports left arm and leg weakness that seems to be chronic over the last few months and was mentioned on the last few visits as well. Unknown last well time and patient is not a good historian. No reported vomiting or diarrhea. Recent testing for Covid has been negative. EMS did give aspirin 324 mg p.o. Timing/Duration: unknown, waxing and waning, other (Chronic chest pain chronic left arm and leg weakness seems to be increasing and decreasing over time but worse currently.) Severity: moderate Associated Symptoms: confusion; No fever/chills, No nausea/vomiting, No paresth esia, No seizures; slurred speech, weakness (JUAN PABLO MILLARD MD) Allergies and Home Medications Allergies Coded Allergies: Penicillins (Verified Allergy, Unknown, 10/17/13) morphine (Verified Allergy, Unknown, pt has received Hydromorphone in the past, 03/18/21) Patient Home Medication List Home Medication List Reviewed: Yes (JUAN PABLO MILLARD MD) Amitriptyline HCl (Amitriptyline HCl) 50 Mg Tablet, 50 MG PO HS Prescribed by: SARAH MANRIQUEZ on 03/21/21 1133 Aspirin (Aspirin EC) 81 Mg Tablet., 81 MG PO DAILY, (Reported) Entered as Reported by: AURORA GUAMAN on 03/15/21 0959 Pantoprazole Sodium (Pantoprazole Sodium) 40 Mg Tablet., 40 MG PO DAILY Prescribed by: SARAH MANRIQUEZ on 03/21/21 1133 Review of Systems Review of Systems Constitutional: see HPI; No chills, No fever Eyes: No Symptoms Reported Ears, Nose, Mouth, Throat: no symptoms reported Respiratory: No cough, No short of breath Cardiovascular: chest pain; No edema; palpitations Gastrointestinal: No nausea, No vomiting Genitourinary: no symptoms reported Musculoskeletal: No back pain; muscle weakness Skin: no symptoms reported Psychiatric/Neurological: Denies Headache; Weakness (JUAN PABLO MILLARD MD) All Other Systems Reviewed Negative Unless Noted: Yes (JUAN PABLO MILLARD MD) Past Ptyqszz-Nxnnne-Qpxxhz Hx Patient Social History Tobacco Use?: Yes Alcohol Use?: Yes Alcohol type: Hard Liquor Alcohol Frequency: Daily (JUAN PABLO MILLARD MD) Immunizations Up To Date Tetanus Booster (TDap): Less than 5yrs PED Vaccines UTD: No First/Initial COVID19 Vaccinat: 2020 Second COVID19 Vaccination Loc: 2020 Third COVID19 Vaccination Date: 2020 (JUAN PABLO MILLARD MD) Past Medical History Surgery/Hospitalization HX: PATIENT UNSURE Surgeries: Yes Orthopedic Respiratory: Yes (History of traumatic pneumothorax) Asthma Cardiac: Yes Atrial Fibrillation, Irregular Heartbeat Neurological: Yes (MILD RIGHT SIDE WEAKNESS) Stroke Genitourinary: No Gastrointestinal: Yes Pancreatitis, Gall Bladder Disease Musculoskeletal: Yes Back Injury, Chronic Back Pain, Fractures Endocrine: No HEENT: No Cancer: No Psychosocial: Yes (Alcohol dependence) Adverse Reaction/Blood Tranf: No (JUAN PABLO MILLARD MD) Family Medical History Reviewed Nursing Family Hx (JUAN PABLO MILLARD MD) History of - respiratory disease 03 FATHER (EMPHYSEMIA) GI Disease (JUAN PABLO MILLARD MD) Physical Exam Vital Signs Vital Signs - First Documented 06/17/21 05:13 Temp 36.3 Pulse 64 Resp 16 B/P (MAP) 140/98 (112) Pulse Ox 94 O2 Delivery Room Air (LION REED MD) Vital Signs Capillary Refill : (JUAN PABLO MILLARD MD) Height, Weight, BMI Height: 6'1.00" Weight: 211lbs. 0.5oz. 95.719481xr; 34.00 BMI Method:Stated General Appearance: WD/WN, no apparent distress HEENT: PERRL/EOMI, pharynx normal, other (Decreased movement left side of mouth) Neck: full range of motion, supple Respiratory: lungs clear, normal breath sounds Cardiovascular: tachycardia, other (Multiple PVCs but underlying sinus rhythm on monitor.) Gastrointestinal: non tender, soft Back: normal inspection, no CVA tenderness, no vertebral tenderness Extremities: non-tender, other (Sometimes decreased range of motion to the left arm and leg with sometimes moving them.) Neurologic/Psychiatric: alert, other (Sometimes confused. Otherwise answers questions appropriately and follows simple commands.) Crainal Nerves: abnormal speech, facial weakness (Left-sided) Skin: normal color, warm/dry (JUAN PABLO MILLARD MD) Progress/Results/Core Measures Results/Orders Lab Results Laboratory Tests Test 06/17/21 05:18 Range/Units White Blood Count 4.4 4.3-11.0 10^3/uL Red Blood Count 5.43 4.30-5.52 10^6/uL Hemoglobin 18.0 H 13.3-17.7 g/dL Hematocrit 52 40-54 % Mean Corpuscular Volume 97 80-99 fL Mean Corpuscular Hemoglobin 33 25-34 pg Mean Corpuscular Hemoglobin Concent 34 32-36 g/dL Red Cell Distribution Width 14.7 H 10.0-14.5 % Platelet Count 103 L 130-400 10^3/uL Mean Platelet Volume 12.6 H 9.0-12.2 fL Immature Granulocyte % (Auto) 0 % Neutrophils (%) (Auto) 52 42-75 % Lymphocytes (%) (Auto) 37 12-44 % Monocytes (%) (Auto) 8 0-12 % Eosinophils (%) (Auto) 3 0-10 % Basophils (%) (Auto) 1 0-10 % Neutrophils # (Auto) 2.3 1.8-7.8 10^3/uL Lymphocytes # (Auto) 1.6 1.0-4.0 10^3/uL Monocytes # (Auto) 0.4 0.0-1.0 10^3/uL Eosinophils # (Auto) 0.1 0.0-0.3 10^3/uL Basophils # (Auto) 0.1 0.0-0.1 10^3/uL Immature Granulocyte # (Auto) 0.0 0.0-0.1 10^3/uL Prothrombin Time 12.8 12.2-14.7 SEC INR Comment 0.9 0.8-1.4 Activated Partial Thromboplast Time 25 24-35 SEC D-Dimer 1.17 H 0.00-0.49 UG/ML Sodium Level 139 135-145 MMOL/L Potassium Level 3.5 L 3.6-5.0 MMOL/L Chloride Level 100 98-107 MMOL/L Carbon Dioxide Level 18 L 21-32 MMOL/L Anion Gap 21 H 5-14 MMOL/L Blood Urea Nitrogen 7 7-18 MG/DL Creatinine 0.88 0.60-1.30 MG/DL Estimat Glomerular Filtration Rate 87 BUN/Creatinine Ratio 8 Glucose Level 121 H 70-105 MG/DL Calcium Level 8.4 L 8.5-10.1 MG/DL Corrected Calcium 8.2 L 8.5-10.1 MG/DL Magnesium Level 2.0 1.6-2.4 MG/DL Total Bilirubin 1.1 H 0.1-1.0 MG/DL Aspartate Amino Transf (AST/SGOT) 161 H 5-34 U/L Alanine Aminotransferase (ALT/SGPT) 108 H 0-55 U/L Alkaline Phosphatase 66 40-136 U/L Troponin I 0.037 H <0.028 NG/ML Total Protein 7.7 6.4-8.2 GM/DL Albumin 4.2 3.2-4.5 GM/DL Serum Alcohol 208 H <10 MG/DL (LION REED MD) Vital Signs/I&O 06/17/21 05:13 Temp 36.3 Pulse 64 Resp 16 B/P (MAP) 140/98 (112) Pulse Ox 94 O2 Delivery Room Air (LION REED MD) Progress Progress Note : Progress Note Seen and evaluated. Given patient's report of fall and because of left-sided weakness, we will initiate stroke activation initiate stroke protocol. We will also check for cardiac event. Patient states he will stay this time that he is just stubborn. I did encourage him to stay through the evaluation and visit as long as it needs to take and he states he will comply. No indication for TPA in this patient as he has had multiple documented incidents in the emergency department with left-sided weakness that seems to be persisting. Last known well time is unknown on this patient. We will rule out bleed due to falls and alcohol abuse. Monitor patient. 0535: Patient returning from CT scan. 0547: We have completed the stroke scale and it is currently fourteen. He had noticed multiple disqualifying factors for TPA with the main one being last known well time unknown. Pending results. 0603: Care transferred to Dr. Reed pending CT angiogram of the chest. I have reviewed patient's history and he had CT angiogram of the head and neck from April that did not show significant bl ockage. Patient had similar complaint of left arm and left leg weakness 2 days ago but walked out of here. He does have elevated D-dimer and chest pain and chest pain was the main complaint that brought him here. In the setting of atrial fibrillation and chest pain with elevated D-dimer, I am concerned about pulmonary embolism. I did discuss this with Dr. Reed as well. Given the risk factors in this presentation, CT angiogram of the chest is indicated. This has been ordered. Monitor patient. (JUAN PABLO MILLARD MD) Progress Note : Time: 06:20 Progress Note Approximately 3 minutes after shift change, the patient asked to leave the emergency department. I went in to talk to him, he is sitting up on the end of the bed moving his left side entirely voluntarily. He is telling me that he would like to go home and be in his own environment. I discussed with him his abnormal lab findings including the elevated troponin, "heart marker" as well as the elevated blood clotting markers, the D-dimer. I mentioned his dysrhythmia, frequent PVCs as well as tachycardia and his complaint of chest pain. I discussed with him that we had not completed studies to rule out a clot in his chest causing his chest pain. I talked with him about the fact that he could have a blood clot that could ultimately result in him dying. He has a friend/family member at the bedside who is also encouraging him to stay. The patient states that he will not stay and desires to leave. He states that he understands this is AGAINST MEDICAL ADVICE. He tells me he has not taken his heart medication in 2 days. I strongly encouraged him to be compliant with his medications. He has been given good return precautions. He verbalized understanding and will be discharged AMA. (LION REED MD) Initial ECG Impression Date: Jun 17, 2021 Initial ECG Impression Time: 05:17 Initial ECG Rate: 101 Comment Sinus with ventricular trigeminy. Normal axis. Left atrial enlargement. No evidence of ST elevation ND. Interpreted by me. (JUAN PABLO MILLARD MD) Diagnostic Imaging Diagonstic Imaging: CT Plain Films/CT/US/NM/MRI: head Comments [facility], [place] NAME: AGUSTIN LOZA [facility] REC#: [id number] PT STATUS: REG ER : 1955 PHYSICIAN: JUAN PABLO MILLARD MD ADMIT DATE: 06/17/21/ER Signed Date of Exam:06/17/21 CT HEAD WO-R/O STROKE EXAMINATION: CT head without contrast. TECHNIQUE: Multiple contiguous axial images were obtained through the brain without the use of intravenous contrast. All CT scans use one or more of the following dose optimizing techniques: automated exposure control, MA and/or KvP adjustment based on patient size and exam type or iterative reconstruction. HISTORY: Strokelike symptoms COMPARISON: 06/15/2021 FINDINGS: The arellano-white matter differentiation is normal. No mass effect or midline shift. The ventricles are normal in size and configuration. Basilar cisterns are patent. There are no intra- or extra-axial fluid collections. There is no intracranial hemorrhage. The orbits are normal. Paranasal sinuses are normal. Mastoid air cells are clear. No soft tissue abnormality is seen. No osseus lesions or fractures are seen. IMPRESSION: 1. No acute intracranial abnormality. Dictated by: Dictated on workstation # [id number] Dict: 06/17/2143 Trans: 06/17/2145 [facility] [id number] Interpreted by: NATHALY LEGGETT MD Electronically signed by: NATHALY LEGGETT MD 06/17/2145 Reviewed: Reviewed by Me (JUAN PABLO MILLARD MD) Departure Impression Primary Impression: Chest pain Qualified Codes: R07.9 - Chest pain, unspecified Additional Impressions: Medical non-compliance Left-sided weakness Disposition: 07 AGAINST MEDICAL ADVICE Condition: Against Medical Advice Departure-Patient Inst. Referrals: TIANNA GRANADOS DO (PCP/Family) Primary Care Physician JUAN PABLO MILLARD MD Jun 17, 2021 05:30 LION REED MD Jun 17, 2021 06:23
[2021-06-17 05:39] LABS: ALBUMIN 4.2 GM/DL (3.2-4.5); POTASSIUM 3.5 MMOL/L (3.6-5.0)
[2021-06-17 05:40] LABS: CALCIUM 8.4 MG/DL (8.5-10.1)
[2021-06-17 05:41] LABS: TOTAL PROTEIN 7.7 GM/DL (6.4-8.2)
[2021-06-17 05:43] LABS: BILIRUBIN,TOTAL 1.1 MG/DL (0.1-1.0); FIBRIN DEGRADATION PRODUCTS 1.17 UG/ML (0.00-0.49); INR 0.9 (0.8-1.4); PROTHROMBIN TIME PATIENT 12.8 SEC (12.2-14.7)
[2021-06-17 05:45] LABS: CREATININE SERUM 0.88 MG/DL (0.60-1.30)
--- NOTE | 2021-06-17 05:47 | Diagnostic Imaging Report ---
EXAMINATION: CT head without contrast. TECHNIQUE: Multiple contiguous axial images were obtained through the brain without the use of intravenous contrast. All CT scans use one or more of the following dose optimizing techniques: automated exposure control, MA and/or KvP adjustment based on patient size and exam type or iterative reconstruction. HISTORY: Strokelike symptoms COMPARISON: 06/15/2021 FINDINGS: The arellano-white matter differentiation is normal. No mass effect or midline shift. The ventricles are normal in size and configuration. Basilar cisterns are patent. There are no intra- or extra-axial fluid collections. There is no intracranial hemorrhage. The orbits are normal. Paranasal sinuses are normal. Mastoid air cells are clear. No soft tissue abnormality is seen. No osseus lesions or fractures are seen. IMPRESSION: 1. No acute intracranial abnormality. Dictated by: Dictated on workstation # [email or web address]
--- NOTE | 2021-06-17 06:04 | Diagnostic Imaging Report ---
EXAMINATION: Chest 1 view HISTORY: chest pain COMPARISON: 06/15/2021 FINDINGS: The lungs are clear without edema or pneumonia. No pleural effusion or pneumothorax. Heart size is normal. IMPRESSION: 1. Clear lungs. Dictated by: Dictated on workstation # [id number]
== END 2021-06-17 06:25 | disposition left against medical advice (07) ==
LOC: EDUNIT# 05:10 → ER 05:11
DX: R07.9 Chest pain, unspecified (principal); R53.1 Weakness; R00.0 Tachycardia, unspecified; J45.909 Unspecified asthma, uncomplicated; Z91.19 Patient's noncompliance with other medical treatment and regimen; Z86.73 Personal history of transient ischemic attack (TIA), and cerebral infarction without residual deficits; Z72.0 Tobacco use; Z79.82 Long term (current) use of aspirin
CPT/HCPCS: 70450; 71045; 80053; 83735; 84484; 85025; 85379; 85610; 85730; 93005; 93041; 99284; G0480; 36415; 80320

== ENCOUNTER 2021-07-18 03:10 | Emergency (ER) | payer MEDICARE ==
[2021-07-18 03:30] VITALS: BP 142/101
[2021-07-18 04:01] LABS: BASOPHILS % (AUTO) 1 % (0-10); EOSINOPHILS % (AUTO) 1 % (0-10); HEMATOCRIT 51 % (40-54); HEMOGLOBIN 17.2 g/dL (13.3-17.7); LYMPHOCYTES # (AUTO) 0.9 10^3/uL (1.0-4.0); LYMPHOCYTES % (AUTO) 23 % (12-44); MEAN CORPUSCULAR HEMOGLOBIN 34 pg (25-34); MEAN CORPUSCULAR HGB CONC 34 g/dL (32-36); MEAN CORPUSCULAR VOLUME 99 fL (80-99); MEAN PLATELET VOLUME 11.5 fL (9.0-12.2); MONOCYTES # (AUTO) 0.3 10^3/uL (0.0-1.0); MONOCYTES % (AUTO) 7 % (0-12); NEUTROPHILS # (AUTO) 2.7 10^3/uL (1.8-7.8); NEUTROPHILS % (AUTO) 68 % (42-75); PLATELET COUNT 77 10^3/uL (130-400); WHITE BLOOD COUNT 3.9 10^3/uL (4.3-11.0)
[2021-07-18 04:16] LABS: ALBUMIN 4.5 GM/DL (3.2-4.5); POTASSIUM 4.1 MMOL/L (3.6-5.0)
[2021-07-18 04:17] LABS: CALCIUM 8.8 MG/DL (8.5-10.1)
[2021-07-18 04:18] LABS: TOTAL PROTEIN 7.8 GM/DL (6.4-8.2)
[2021-07-18 04:20] LABS: BILIRUBIN,TOTAL 1.1 MG/DL (0.1-1.0)
[2021-07-18 04:22] LABS: CREATININE SERUM 0.84 MG/DL (0.60-1.30)
--- NOTE | 2021-07-18 04:24 | Diagnostic Imaging Report ---
EXAMINATION: Chest radiograph, portable AP view. DATE: 07/18/2021 4:19 AM INDICATION: 66-year-old male, chest pain. COMPARISON: June 17, 2021. FINDINGS: Heart size and mediastinal contours are unchanged. There is no identified pneumothorax. There is no large pleural effusion. There is no identified focal airspace consolidation. IMPRESSION: No identified acute cardiopulmonary abnormality. Dictated by: Dictated on workstation # [id number]
[2021-07-18 04:25] LABS: MAGNESIUM 1.8 MG/DL (1.6-2.4)
--- NOTE | 2021-07-18 07:05 | ED Chest Pain ---
General Chief Complaint: Chest Pain Stated Complaint: CP;TINGLING IN BODY;DIZZY Nursing Triage Note: TO ED VIA POV TO ROOM 7 WITH C/O CP AND "BLACKING OUT". Source: patient Exam Limitations: no limitations Allergies and Home Medications Allergies Coded Allergies: Penicillins (Verified Allergy, Unknown, 10/17/13) morphine (Verified Allergy, Unknown, pt has received Hydromorphone in the past, 03/18/21) Patient Home Medication List Amitriptyline HCl (Amitriptyline HCl) 50 Mg Tablet, 50 MG PO HS Prescribed by: SARAH MANRIQUEZ on 03/21/21 1133 Aspirin (Aspirin EC) 81 Mg Tablet.dr, 81 MG PO DAILY, (Reported) Entered as Reported by: AURORA GUAMAN on 03/15/21 0959 Pantoprazole Sodium (Pantoprazole Sodium) 40 Mg Tablet.dr, 40 MG PO DAILY Prescribed by: SARAH MANRIQUEZ on 03/21/21 1133 Past Yrqyapl-Sueduu-Bwcsxy Hx Immunizations Up To Date Tetanus Booster (TDap): Less than 5yrs PED Vaccines UTD: No First/Initial COVID19 Vaccinat: 2020 Second COVID19 Vaccination Loc: 2020 Third COVID19 Vaccination Date: 2020 Past Medical History Surgery/Hospitalization HX: SEE OLD CHARTS FOR DETAILS--PT UNABLE TO GIVE HISTORY AT THIS TIME. Surgeries: Yes Orthopedic Respiratory: Yes (History of traumatic pneumothorax) Asthma Cardiac: Yes Atrial Fibrillation, Irregular Heartbeat Neurological: Yes (MILD RIGHT SIDE WEAKNESS) Stroke Genitourinary: No Gastrointestinal: Yes Pancreatitis, Gall Bladder Disease Musculoskeletal: Yes Back Injury, Chronic Back Pain, Fractures Endocrine: No HEENT: No Cancer: No Psychosocial: Yes (Alcohol dependence) Adverse Reaction/Blood Tranf: No Family Medical History History of - respiratory disease 03 FATHER (EMPHYSEMIA) GI Disease Physical Exam Vital Signs Vital Signs - First Documented 07/18/21 03:30 Temp 36.9 Pulse 91 Resp 20 B/P (MAP) 142/101 (115) Pulse Ox 95 O2 Delivery Room Air Capillary Refill : Less Than 3 Seconds Height, Weight, BMI Height: 6'1.00" Weight: 211lbs. 0.5oz. 95.770943pt; BMI Method:Stated Progress/Results/Core Measures Results/Orders Lab Results Laboratory Tests Test 07/18/21 03:46 Range/Units White Blood Count 3.9 L 4.3-11.0 10^3/uL Red Blood Count 5.09 4.30-5.52 10^6/uL Hemoglobin 17.2 13.3-17.7 g/dL Hematocrit 51 40-54 % Mean Corpuscular Volume 99 80-99 fL Mean Corpuscular Hemoglobin 34 25-34 pg Mean Corpuscular Hemoglobin Concent 34 32-36 g/dL Red Cell Distribution Width 15.4 H 10.0-14.5 % Platelet Count 77 L 130-400 10^3/uL Mean Platelet Volume 11.5 9.0-12.2 fL Immature Granulocyte % (Auto) 0 % Neutrophils (%) (Auto) 68 42-75 % Lymphocytes (%) (Auto) 23 12-44 % Monocytes (%) (Auto) 7 0-12 % Eosinophils (%) (Auto) 1 0-10 % Basophils (%) (Auto) 1 0-10 % Neutrophils # (Auto) 2.7 1.8-7.8 10^3/uL Lymphocytes # (Auto) 0.9 L 1.0-4.0 10^3/uL Monocytes # (Auto) 0.3 0.0-1.0 10^3/uL Eosinophils # (Auto) 0.0 0.0-0.3 10^3/uL Basophils # (Auto) 0.0 0.0-0.1 10^3/uL Immature Granulocyte # (Auto) 0.0 0.0-0.1 10^3/uL Prothrombin Time 13.0 12.2-14.7 SEC INR Comment 1.0 0.8-1.4 Activated Partial Thromboplast Time 27 24-35 SEC Sodium Level 144 135-145 MMOL/L Potassium Level 4.1 3.6-5.0 MMOL/L Chloride Level 103 98-107 MMOL/L Carbon Dioxide Level 21 21-32 MMOL/L Anion Gap 20 H 5-14 MMOL/L Blood Urea Nitrogen 10 7-18 MG/DL Creatinine 0.84 0.60-1.30 MG/DL Estimat Glomerular Filtration Rate 92 BUN/Creatinine Ratio 12 Glucose Level 74 70-105 MG/DL Calcium Level 8.8 8.5-10.1 MG/DL Corrected Calcium 8.4 L 8.5-10.1 MG/DL Magnesium Level 1.8 1.6-2.4 MG/DL Total Bilirubin 1.1 H 0.1-1.0 MG/DL Aspartate Amino Transf (AST/SGOT) 142 H 5-34 U/L Alanine Aminotransferase (ALT/SGPT) 92 H 0-55 U/L Alkaline Phosphatase 62 40-136 U/L Myoglobin 155.9 H 10.0-92.0 NG/ML Troponin I 0.055 H <0.028 NG/ML Total Protein 7.8 6.4-8.2 GM/DL Albumin 4.5 3.2-4.5 GM/DL Serum Alcohol 150 H <10 MG/DL My Orders Orders - SALLY SHEIKH MD Cbc With Automated Diff (07/18/21 03:40) Magnesium (07/18/21 03:40) Chest 1 View, Ap/Pa Only (07/18/21 03:40) Ekg Tracing (07/18/21 03:40) Comprehensive Metabolic Panel (07/18/21 03:40) Myoglobin Serum (07/18/21 03:40) Protime With Inr (07/18/21 03:40) Partial Thromboplastin Time (07/18/21 03:40) O2 (07/18/21 03:40) Monitor-Rhythm Ecg Trace Only (07/18/21 03:40) Ed Iv/Invasive Line Start (07/18/21 03:40) Troponin I [place] (07/18/21 03:40) Alcohol (07/18/21 03:41) Vital Signs/I&O 07/18/21 03:30 Temp 36.9 Pulse 91 Resp 20 B/P (MAP) 142/101 (115) Pulse Ox 95 O2 Delivery Room Air Blood Pressure Mean: 115 Initial ECG Impression Date: Jul 18, 2021 Initial ECG Impression Time: 03:35 Initial ECG Rate: 87 Initial ECG Rhythm: Normal Sinus Initial ECG Intervals: Normal Initial ECG Impression: Normal Comment Sinus rhythm with no diagnostic ST elevation or depression. No abnormal intervals or axis deviation. Departure Impression Disposition: 07 AGAINST MEDICAL ADVICE Departure-Patient Inst. Referrals: TIANNA GRANADOS DO (PCP) Primary Care Physician SALLY SHEIKH MD Jul 18, 2021 07:05
== END 2021-07-18 05:08 | disposition left against medical advice (07) ==
LOC: EDUNIT# 03:10 → ER 03:12
DX: R07.9 Chest pain, unspecified (principal); Z86.73 Personal history of transient ischemic attack (TIA), and cerebral infarction without residual deficits; Z79.82 Long term (current) use of aspirin
CPT/HCPCS: 71045; 80053; 83735; 83874; 84484; 85025; 85610; 85730; 93005; 93041; 99284; G0480; 36415; 80320

== ENCOUNTER 2021-08-12 00:55 | Emergency (ER) | payer MEDICARE ==
[~2021-08-12] VITALS: Ht 185.5 cm; Wt 122.0 kg
[2021-08-12 00:55] VITALS: BP 152/109
--- NOTE | 2021-08-12 01:20 | ED Fall/Injury ---
General Chief Complaint: Chest Pain Stated Complaint: FALL ,CP Nursing Triage Note: fall, right sided chest pain. 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 PT IS ADAMANTLY REFUSING ALL TESTS. PT HAS CLEAR SPEECH, AND IS NOT CONFUSED PT HAS HAD MULTIPLE VISITS HERE, AND HAS BEEN INTOXICATED EVERY TIME HE IS HERE, AND HAS SIGNED OUT AMA EVERY TIME, USUALLY SHORTLY AFTER ARRIVAL MOST OF THE TIME PT HAS HAD 11 VISITS HERE SINCE 03/2021 FOR VARIOUS COMPLAINTS. PT HAS BEEN INTOXICATED NEARLY EVERY TIME. PCP: DR. GRANADOS Allergies and Home Medications Allergies Coded Allergies: Penicillins (Verified Allergy, Unknown, 10/17/13) morphine (Verified Allergy, Unknown, pt has received Hydromorphone in the past, 03/18/21) Patient Home Medication List Home Medication List Reviewed: Yes Amitriptyline HCl (Amitriptyline HCl) 50 Mg Tablet, 50 MG PO HS Prescribed by: SARAH MANRIQUEZ on 03/21/21 1133 Aspirin (Aspirin EC) 81 Mg Tablet., 81 MG PO DAILY, (Reported) Entered as Reported by: AURORA GUAMAN on 03/15/21 0959 Pantoprazole Sodium (Pantoprazole Sodium) 40 Mg Tablet., 40 MG PO DAILY Prescribed by: SARAH MANRIQUEZ on 03/21/21 1133 Review of Systems Review of Systems Constitutional: no symptoms reported Eyes: No Symptoms Reported Ears, Nose, Mouth, Throat: no symptoms reported Respiratory: no symptoms reported; No short of breath Cardiovascular: see HPI Gastrointestinal: no symptoms reported; No abdominal pain Genitourinary: no symptoms reported Musculoskeletal: see HPI Skin: no symptoms reported Psychiatric/Neurological: See HPI; Denies Headache, Denies Numbness, Denies Paresthesia, Denies Tingling, Denies Weakness Past Ozebwpw-Ctbspp-Wmapfn Hx Patient Social History Tobacco Use?: No Substance use?: No Alcohol Use?: Yes Alcohol type: Hard Liquor Alcohol Frequency: Daily Pt feels they are or have been: Unable to obtain Immunizations Up To Date Tetanus Booster (TDap): Less than 5yrs PED Vaccines UTD: No First/Initial COVID19 Vaccinat: 2020 Second COVID19 Vaccination Loc: 2020 Third COVID19 Vaccination Date: 2020 Past Medical History Surgery/Hospitalization HX: orthopedic, heart cath, asthma, a-fib, pancreatitis, stroke, ch. back pain. Surgeries: Yes Cardiac, Orthopedic Respiratory: Yes (History of traumatic pneumothorax) Asthma Cardiac: Yes Atrial Fibrillation, Irregular Heartbeat Neurological: Yes (MILD RIGHT SIDE WEAKNESS) Stroke Genitourinary: No Gastrointestinal: Yes Pancreatitis, Gall Bladder Disease Musculoskeletal: Yes Back Injury, Chronic Back Pain, Fractures Endocrine: No HEENT: No Cancer: No Psychosocial: Yes (Alcohol dependence) Adverse Reaction/Blood Tranf: No Family Medical History History of - respiratory disease 03 FATHER (EMPHYSEMIA) GI Disease Physical Exam Vital Signs Capillary Refill : Less Than 3 Seconds Height, Weight, BMI Height: 6'1.00" Weight: 211lbs. 0.5oz. 95.158277ae; 35.00 BMI Method:Stated General Appearance: WD/WN, no apparent distress, other (TALKING NON-STOP) HEENT: PERRL/EOMI, other (NO EXTERNAL EVIDENCE OF TRAUMA TO HEAD) Neck: non-tender, full range of motion, normal inspection Cardiovascular: regular rate, rhythm, no murmur Respiratory: normal breath sounds, no respiratory distress, no accessory muscle use, other (MILD RIGHT MID ANTERIOR CHEST TENDERNESS, BUT NO BRUISING, NO SWELLING, NO ABRAIONS/ERYTHEMA, NO CREPITANCE, NO DEFORMITY, NO SUB Q AIR. ) Peripheral Pulses: 2+ Dorsalis Pedis (R), 2+ Left Dors-Pedis (L), 2+ Radial P ulses (R), 2+ Radial Pulses (L) Gastrointestinal: normal bowel sounds, non tender, soft Back: normal inspection, no CVA tenderness Extremities: normal range of motion, non-tender, normal inspection, no calf tenderness, normal capillary refill, pedal edema (TRACE BILATERALLY) Neurologic/Psychiatric: posting clerk II-XII nml as tested, no motor/sensory deficits, alert, normal mood/affect, oriented x 3 Skin: normal color, warm/dry [place] Coma Score Best Eye Response: (4) Open Spontaneously Best Verbal Response: (5) Oriented Best Motor Response: (6) Obeys Commands Fani Total: 15 Progress/Results/Core Measures Results/Orders Blood Pressure Mean: 123 Progress Progress Note : Progress Note 0105--PT WANTING TO LEAVE AND IS SIGNING OUT AMA AND IS ALREADY ON PHONE TALKING WITH SOMEONE TO COME PICK HIM UP AND TAKE HIM HOME. Initial ECG Impression Date: Aug 12, 2021 Initial ECG Impression Time: 01:04 Initial ECG Rate: 85 Initial ECG Rhythm: Normal Sinus (WITH PVC'S) Departure Impression Primary Impression: Left against medical advice Disposition: 07 AGAINST MEDICAL ADVICE Condition: Against Medical Advice Departure-Patient Inst. Referrals: TIANNA GRANADOS DO (PCP/Family) Primary Care Physician MEG ALEXANDER DO Aug 12, 2021 01:20
== END 2021-08-12 01:12 | disposition left against medical advice (07) ==
LOC: EDUNIT# 00:58 → ER 01:06
DX: R07.9 Chest pain, unspecified (principal); J45.909 Unspecified asthma, uncomplicated; Z86.73 Personal history of transient ischemic attack (TIA), and cerebral infarction without residual deficits; Z79.82 Long term (current) use of aspirin
CPT/HCPCS: 93005; 93041

== ENCOUNTER 2021-08-12 09:45 | Emergency (ER) | payer MEDICARE ==
[~2021-08-12] VITALS: Ht 187 cm; Wt 93.1 kg
[2021-08-12 10:07] VITALS: BP 135/91
--- NOTE | 2021-08-12 10:12 | ED Abdominal Pain ---
General Chief Complaint: Abdominal/GI Problems Stated Complaint: CP Nursing Triage Note: TO ED PER EMS FROM HOME C/O EPIGASTRIC PAIN. WAS IN ED THIS AM FOR CHEST PAIN AND LEFT AMA HAS BEEN DRINKING [employer] DELUX. ASA BY EMS 325MG Source of Information: Patient Exam Limitations: No Limitations History of Present Illness Date Seen by Provider: Aug 12, 2021 Time Seen by Provider: 09:35 Initial Comments Patient to the ER by EMS from his home with chief complaint of right chest pain. Negative twelve-lead for EMS. He denies a history of heart disease. He says his friend recently and he drank half a gallon of whiskey last night. When he points to his pain he points to his right upper quadrant abdomen. He is exquisitely tender over his liver. Is not having any nausea. He is taken nothing for it. He does not have a history of pancreatitis. No abdominal surgeries. 5 years ago he had endoscopy and was told everything was okay. He moved here recently from [place]. He is a daily whiskey drinker. He denies a history of diabetes hypertension hyperlipidemia or smoking. He was here earlier today and seen by the previous ER doctor and who obtained an EKG which is unremarkable and left AMA. Allergies and Home Medications Allergies Coded Allergies: Penicillins (Verified Allergy, Unknown, 10/17/13) morphine (Verified Allergy, Unknown, pt has received Hydromorphone in the past, 03/18/21) Patient Home Medication List Home Medication List Reviewed: Yes Amitriptyline HCl (Amitriptyline HCl) 50 Mg Tablet, 50 MG PO HS Prescribed by: SARAH MANRIQUEZ on 03/21/21 1133 Aspirin (Aspirin EC) 81 Mg Tablet.dr 81 MG PO DAILY, (Reported) Entered as Reported by: AURORA GUAMAN on 03/15/21 0959 Pantoprazole Sodium (Pantoprazole Sodium) 40 Mg Tablet., 40 MG PO DAILY Prescribed by: SARAH MANRIQUEZ on 03/21/21 1133 Review of Systems Review of Systems Constitutional: No chills, No diaphoresis EENTM: No Blurred Vision, No Double Vision Respiratory: Denies Cough, Denies Shortness of Air Cardiovascular: See HPI, Chest Pain; Denies Lightheadedness Gastrointestinal: Denies Constipated, Denies Diarrhea Genitourinary: Denies Burning, Denies Discharge, Denies Drainage Musculoskeletal: No back pain, No joint pain Skin: No change in color, No pruritus Psychiatric/Neurological: Denies Anxiety, Denies Depressed All Other Systems Reviewed Negative Unless Noted: Yes Past Cwqptup-Nwxplo-Upzipk Hx Patient Social History Tobacco Use?: Yes Substance use?: No Alcohol Use?: Yes Alcohol type: Hard Liquor Alcohol Frequency: Daily Immunizations Up To Date Tetanus Booster (TDap): Less than 5yrs PED Vaccines UTD: No First/Initial COVID19 Vaccinat: UNSURE OF DATE. Second COVID19 Vaccination Loc: UNSUE OF DATE Third COVID19 Vaccination Date: 2020 Past Medical History Surgery/Hospitalization HX: orthopedic, heart cath, asthma, a-fib, pancreatitis, stroke, ch. back pain. Surgeries: Yes Cardiac, Orthopedic Respiratory: Yes (History of traumatic pneumothorax) Asthma Cardiac: Yes Atrial Fibrillation, Irregular Heartbeat Neurological: Yes (MILD RIGHT SIDE WEAKNESS) Stroke Genitourinary: No Gastrointestinal: Yes Pancreatitis, Gall Bladder Disease Musculoskeletal: Yes Back Injury, Chronic Back Pain, Fractures Endocrine: No HEENT: No Cancer: No Psychosocial: Yes (Alcohol dependence) Adverse Reaction/Blood Tranf: No Family Medical History History of - respiratory disease 03 FATHER (EMPHYSEMIA) GI Disease Physical Exam Vital Signs Vital Signs - First Documented 08/12/21 09:45 Temp 35.7 Pulse 92 Resp 18 B/P (MAP) 155/91 (112) Pulse Ox 97 Capillary Refill : Less Than 3 Seconds Height/Weight/BMI Height: 6'1.00" Weight: 211lbs. 0.5oz. 95.455297rp; 26.00 BMI Method:Stated General Appearance: WD/WN, no apparent distress HEENT: PERRL/EOMI, normal ENT inspection, pharynx normal Neck: full range of motion, supple, normal inspection Respiratory: lungs clear, normal breath sounds, no respiratory distress, no accessory muscle use Cardiovascular: normal peripheral pulses, regular rate, rhythm, no edema Peripheral Pulses: 2+ Radial Pulses (R), 2+ Radial Pulses (L) Gastrointestinal: normal bowel sounds, soft, no organomegaly, tenderness (Right upper quadrant tenderness to moderate palpation), other (Negative for Rovsing sign mesenteric signs or McBurney's point tenderness) Extremities: normal range of motion, non-tender, normal inspection Neurologic/Psychiatric: alert, normal mood/affect, oriented x 3 Progress/Results/Core Measures Results/Orders Vital Signs/I&O 08/12/21 09:45 Temp 35.7 Pulse 92 Resp 18 B/P (MAP) 155/91 (112) Pulse Ox 97 Blood Pressure Mean: 112 Progress Progress Note : Time: 10:10 Progress Note Patient declined any blood work stating he does not want to take a part-time. We offered him a GI cocktail to see if that would help with his pain the patient agreed to this. 2 minutes after this provider left the room the patient was ambulating out in the hallway stating he just had to get home because he had a friend coming in from [place] to meet at his house. He declined any further care and departed AMA. We did discuss the risks, benefits and alternatives to thorough work-up of his right upper quadrant abdominal pain in the ER. We had already discussed the differential and plan to get EKG blood work which he declined. He also declined the GI cocktail. The patient is pleasant, oriented, not slurring his speech. Departure Impression Primary Impression: Right upper quadrant abdominal pain Additional Impression: Alcoholism Disposition: 07 AGAINST MEDICAL ADVICE Condition: Against Medical Advice Departure-Patient Inst. Decision time for Depature: 10:11 Referrals: TIANNA GRANADOS DO (PCP/Family) Primary Care Physician Patient Instructions: Peptic Ulcers (DC) Add. Discharge Instructions: Because we are not able to complete a work-up I was not able to discover the reason for your pain. I suggest you use Maalox, Tums, Rolaids etc. if the pain comes back. If the pain is persistent then follow-up with your doctor or return to the ER for evaluation. All discharge instructions reviewed with patient and/or family. Voiced understanding. IMMANUEL HADDAD Aug 12, 2021 10:12
== END 2021-08-12 10:07 | disposition left against medical advice (07) ==
LOC: ER 09:45
DX: R10.11 Right upper quadrant pain (principal); F10.20 Alcohol dependence, uncomplicated; J45.909 Unspecified asthma, uncomplicated; Z72.0 Tobacco use; Z86.73 Personal history of transient ischemic attack (TIA), and cerebral infarction without residual deficits; Z79.82 Long term (current) use of aspirin

== ENCOUNTER 2021-08-14 12:42 | Emergency (ER) | payer MEDICARE ==
[~2021-08-14] VITALS: Ht 187 cm; Wt 93.0 kg
[2021-08-14] MEDS ORDERED: FOLIC ACID INJECTION 1 MG in NS (IVPB) 50 ML IV STA (12:52)
[2021-08-14] MEDS ORDERED: NS IV 1000 ML 1,000 ML IV SCH (13:00)
[2021-08-14] MEDS ORDERED: THIAMINE 100 MG/ML 2 ML (VITAMIN B-1) VIAL IV ONE (13:00)
[2021-08-14] MEDS ORDERED: IOHEXOL 350 MG/ML 100 ML (OMNIPAQUE 350) VIAL IV ONE (13:00)
[2021-08-14] MEDS ORDERED: NS 100 ML (IVPB) BAG IV ONE (13:00)
[2021-08-14] MEDS ORDERED: HOLD METFORMIN - RECEIVED CONTRAST 20 ML VIAL IV SCH (13:00)
[2021-08-14] MEDS ORDERED: PANTOPRAZOLE 40 MG (PROTONIX) VIAL IV ONE (13:00)
--- NOTE | 2021-08-14 13:02 | ED Abdominal Pain ---
General Stated Complaint: C/P, DRINKING Source of Information: Patient, EMS Exam Limitations: No Limitations History of Present Illness Date Seen by Provider: Aug 14, 2021 Time Seen by Provider: 12:45 Initial Comments Patient presents ER by EMS from home with chief complaint of right upper quadrant abdominal pain the last several weeks. Has been in ER several times but has never even started a work-up as he always has gone AMA in the past. He states his sister informed him he needs to get to the ER and get it checked out. He drinks a half a gallon of liquor a day. He is not having any nausea fevers chills diarrhea or constipation. He denies any abdominal surgeries. He did have a scope many years ago in [place] and states that at that time everything was okay. He denies a history of pancreatitis, PUD, gallstones etc. No trauma to the abdomen. He has had falls in the past several weeks. He says he drinks so much because he lost his riding partner. Allergies and Home Medications Allergies Coded Allergies: Penicillins (Verified Allergy, Unknown, 10/17/13) morphine (Verified Allergy, Unknown, pt has received Hydromorphone in the past, 03/18/21) Patient Home Medication List Home Medication List Reviewed: Yes Amitriptyline HCl (Amitriptyline HCl) 50 Mg Tablet, 50 MG PO HS Prescribed by: SARAH MANRIQUEZ on 03/21/21 1133 Aspirin (Aspirin EC) 81 Mg Tablet., 81 MG PO DAILY, (Reported) Entered as Reported by: AURORA GUAMAN on 03/15/21 0959 Pantoprazole Sodium (Pantoprazole Sodium) 40 Mg Tablet., 40 MG PO DAILY Prescribed by: SARAH MANRIQUEZ on 03/21/21 1133 Review of Systems Review of Systems Constitutional: No chills, No diaphoresis EENTM: No Blurred Vision, No Double Vision Respiratory: Denies Cough, Denies Shortness of Air Cardiovascular: Denies Chest Pain, Denies Lightheadedness Gastrointestinal: See HPI, Abdominal Pain; Denies Constipated, Denies Diarrhea, Denies Nausea Genitourinary: Denies Burning, Denies Discharge Musculoskeletal: No back pain, No joint pain Skin: No pruritus, No rash Psychiatric/Neurological: Denies Headache, Denies Numbness All Other Systems Reviewed Negative Unless Noted: Yes Past Hlakdlu-Wbamrw-Wzbarh Hx Patient Social History Use of E-Cig and/or Vaping dev: No Substance use?: No Alcohol Use?: Yes Alcohol type: Hard Liquor Alcohol Frequency: Daily Immunizations Up To Date Tetanus Booster (TDap): Less than 5yrs PED Vaccines UTD: No First/Initial COVID19 Vaccinat: UNSURE OF DATE. Second COVID19 Vaccination Loc: UNSUE OF DATE Third COVID19 Vaccination Date: 2020 Past Medical History Surgery/Hospitalization HX: orthopedic, heart cath, asthma, a-fib, pancreatitis, stroke, ch. back pain. Surgeries: Yes Cardiac, Orthopedic Respiratory: Yes (History of traumatic pneumothorax) Asthma Cardiac: Yes Atrial Fibrillation, Irregular Heartbeat Neurological: Yes (MILD RIGHT SIDE WEAKNESS) Stroke Genitourinary: No Gastrointestinal: Yes Pancreatitis, Gall Bladder Disease Musculoskeletal: Yes Back Injury, Chronic Back Pain, Fractures Endocrine: No HEENT: No Cancer: No Psychosocial: Yes (Alcohol dependence) Adverse Reaction/Blood Tranf: No Family Medical History History of - respiratory disease 03 FATHER (EMPHYSEMIA) GI Disease Physical Exam Vital Signs Vital Signs - First Documented 08/14/21 12:43 Temp 36.2 Pulse 93 Resp 16 B/P (MAP) 134/105 (115) Pulse Ox 90 O2 Delivery Room Air O2 Flow Rate 3.00 Capillary Refill : Height/Weight/BMI Height: 6'1.00" Weight: 211lbs. 0.5oz. 95.308377mb; 26.00 BMI Method:Stated General Appearance: mild distress, other (Chronically ill, wasting of the extremities) HEENT: PERRL/EOMI, normal ENT inspection; No pharynx normal (Dry oral mucosa) Neck: full range of motion, supple, normal inspection Respiratory: lungs clear, normal breath sounds, no respiratory distress, no accessory muscle use Cardiovascular: normal peripheral pulses, regular rate, rhythm Peripheral Pulses: 2+ Radial Pulses (R), 2+ Radial Pulses (L) Gastrointestinal: normal bowel sounds, soft, tenderness (Right upper quadrant exquisitely tender to palpation.), other (Negative for McBurney's point tenderness, Rovsing sign) Extremities: normal range of motion, non-tender, normal inspection, normal capillary refill Neurologic/Psychiatric: alert, normal mood/affect, oriented x 3 Skin: normal color, warm/dry Progress/Results/Core Measures Results/Orders Lab Results Laboratory Tests Test 08/14/21 12:54 Range/Units White Blood Count 4.7 4.3-11.0 10^3/uL Red Blood Count 4.90 4.30-5.52 10^6/uL Hemoglobin 17.2 13.3-17.7 g/dL Hematocrit 50 40-54 % Mean Corpuscular Volume 101 H 80-99 fL Mean Corpuscular Hemoglobin 35 H 25-34 pg Mean Corpuscular Hemoglobin Concent 35 32-36 g/dL Red Cell Distribution Width 15.3 H 10.0-14.5 % Platelet Count 89 L 130-400 10^3/uL Mean Platelet Volume 11.0 9.0-12.2 fL Immature Granulocyte % (Auto) 0 % Neutrophils (%) (Auto) 61 42-75 % Lymphocytes (%) (Auto) 29 12-44 % Monocytes (%) (Auto) 8 0-12 % Eosinophils (%) (Auto) 1 0-10 % Basophils (%) (Auto) 0 0-10 % Neutrophils # (Auto) 2.9 1.8-7.8 10^3/uL Lymphocytes # (Auto) 1.4 1.0-4.0 10^3/uL Monocytes # (Auto) 0.4 0.0-1.0 10^3/uL Eosinophils # (Auto) 0.1 0.0-0.3 10^3/uL Basophils # (Auto) 0.0 0.0-0.1 10^3/uL Immature Granulocyte # (Auto) 0.0 0.0-0.1 10^3/uL Percent Immature Platelet Fraction 12.4 H 0.0-7.6 % Prothrombin Time 13.2 12.2-14.7 SEC INR Comment 1.0 0.8-1.4 Activated Partial Thromboplast Time 27 24-35 SEC Sodium Level 142 135-145 MMOL/L Potassium Level 3.7 3.6-5.0 MMOL/L Chloride Level 101 98-107 MMOL/L Carbon Dioxide Level 22 21-32 MMOL/L Anion Gap 19 H 5-14 MMOL/L Blood Urea Nitrogen 10 7-18 MG/DL Creatinine 0.76 0.60-1.30 MG/DL Estimat Glomerular Filtration Rate 100 BUN/Creatinine Ratio 13 Glucose Level 76 70-105 MG/DL Calcium Level 8.3 L 8.5-10.1 MG/DL Corrected Calcium 8.1 L 8.5-10.1 MG/DL Total Bilirubin 0.9 0.1-1.0 MG/DL Aspartate Amino Transf (AST/SGOT) 103 H 5-34 U/L Alanine Aminotransferase (ALT/SGPT) 71 H 0-55 U/L Alkaline Phosphatase 58 40-136 U/L C-Reactive Protein High Sensitivity 0.44 0.00-0.50 MG/DL Total Protein 7.4 6.4-8.2 GM/DL Albumin 4.2 3.2-4.5 GM/DL Lipase 29 8-78 U/L Serum Alcohol 321 *H <10 MG/DL My Orders Orders - IMMANUEL HADDAD Pantoprazole Injection (Protonix Injecti (08/14/21 13:00) Cbc With Automated Diff (08/14/21 12:52) Comprehensive Metabolic Panel (08/14/21 12:52) Hs C Reactive Protein (08/14/21 12:52) Lipase (08/14/21 12:52) Protime With Inr (08/14/21 12:52) Partial Thromboplastin Time (08/14/21 12:52) Ua Culture If Indicated (08/14/21 12:52) Alcohol (08/14/21 12:52) Drug Screen Stat (Urine) (08/14/21 12:52) Ed Iv/Invasive Line Start (08/14/21 12:52) Ns Iv 1000 Ml (Sodium Chloride 0.9%) (08/14/21 13:00) Thiamine Injection (Vitamin B-1 Injectio (08/14/21 13:00) Folic Acid Injection (Folic Acid Injecti (08/14/21 12:52) Ct Abdomen/Pelvis W (08/14/21 12:52) Iohexol Injection (Omnipaque 350 Mg/Ml 1 (08/14/21 13:00) Received Contrast (Hold Metformin- Contr (08/14/21 13:00) Ns (Ivpb) (Sodium Chloride 0.9% Ivpb Bag (08/14/21 13:00) Medications Given in ED Current Medications Medications Dose Ordered Sig/Yoseph Route Start Time Stop Time Status Last Admin Dose Admin Iohexol 100 ml ONCE ONCE IV 08/14/21 13:00 08/14/21 13:01 DC 2/6/22 13:32 100 ML Pantoprazole 40 mg ONCE ONCE IV 08/14/21 13:00 08/14/21 13:01 DC 08/14/21 13:36 40 MG Sodium Chloride 100 ml ONCE ONCE IV 08/14/21 13:00 08/14/21 13:01 DC 08/14/21 13:32 80 ML Thiamine HCl 100 mg ONCE ONCE IV 08/14/21 13:00 08/14/21 13:01 DC 08/14/21 13:36 100 MG Vital Signs/I&O 08/14/21 12:43 Temp 36.2 Pulse 93 Resp 16 B/P (MAP) 134/105 (115) Pulse Ox 90 O2 Delivery Room Air O2 Flow Rate 3.00 Progress Progress Note #1: Time: 13:01 Progress Note Pantoprazole. Patient is laying comfortable and rates his pain is about a 5 out of 10. We will check lipase, CRP, urinalysis alcohol level drug screen and get a CT of the abdomen and pelvis. His pain is centered over his gallbladder and liver. We will check PT/INR. EKG and troponin for potential atypical angina. His EKGs in the past have been unremarkable. Progress Note #2: Time: 14:07 Progress Note Patient became agitated stating that he needed to go home. He wanted to leave AGAINST MEDICAL ADVICE. It was explained that he could have worsening outcomes and recommend he follow-up. We will set him up with a referral to Dr. LEMONS for his cholelithiasis. Patient left before we can give him handout. He did walk out on his own he was not slurring his speech nor was he stumbling. He had a friend with him that walked out with him. He stated gratitude towards nursing staff. Initial ECG Impression Date: Aug 14, 2021 Initial ECG Impression Time: 12:48 Initial ECG Rate: 91 Initial ECG Rhythm: Normal Sinus Initial ECG Intervals: Normal Initial ECG Impression: Normal Initial ECG Comparisson: Unchanged Comment PVCs. Normal sinus rhythm without clinically relevant ST elevation or depression. Borderline prolonged QTC 467 ms. Diagnostic Imaging Diagonstic Imaging: CT Plain Films/CT/US/NM/MRI: abdomen, pelvis Comments [facility], [place] NAME: AGUSTIN LOZA [facility] REC#: [id number] PT STATUS: REG ER : 1955 PHYSICIAN: IMMANUEL HADDAD MD ADMIT DATE: 08/14/21/ER Signed Date of Exam:08/14/21 CT ABDOMEN/PELVIS W PROCEDURE: CT abdomen and pelvis with contrast. TECHNIQUE: Multiple contiguous axial images were obtained through the abdomen and pelvis after administration of intravenous contrast. Auto Exposure Controls were utilized during the CT exam to meet ALARA standards for radiation dose reduction. All CT scans use one or more of the following dose optimizing techniques: automated exposure control, MA and/or KvP adjustment based on patient size and exam type or iterative reconstruction. DATE: August 14, 2021. COMPARISON: CT chest abdomen pelvis April 28, 2021. INDICATION: 66-year-old male, right upper quadrant abdominal pain. FINDINGS: There is a calcified right lower lobe granuloma. There are dependent linear opacities in the lung bases most consistent with mild atelectasis. The heart is not enlarged. There is no pericardial effusion. The liver is unremarkable in size and contour. There is prominent diffuse fatty infiltration of the liver. The outer liver contours are not nodular. There are relatively hyperdense and potentially enhancing lesions present in the right and left lobes of the liver. One example lesion is in the left lobe on axial image 12 and measures up to 3.1 cm in size. This previously measured 3.3 cm in size on April 28, 2021 and is unchanged. The additional relatively hyperdense lesions and potentially enhancing lesions in the liver are also unchanged in size since April 28, 2021. The main, right, and left portal veins are patent. There are small gallstones. There is no evidence of acute cholecystitis. There is no intrahepatic or extrahepatic bile duct dilation. The main pancreatic duct is not abnormally dilated. Unremarkable appearance of the pancreatic parenchyma. The spleen is normal in size. The adrenal glands are unremarkable. Unremarkable appearance of the renal parenchyma. The urinary collecting systems are not distended. There is no identified renal or ureteral stone. The urinary bladder is unremarkable. There is diverticulosis without evidence of acute diverticulitis. The appendix is best seen on axial image 37 and adjacent sequential images. There is no evidence of acute appendicitis. There is no free intraperitoneal air. There is no drainable fluid collection. There is no free pelvic fluid. There are atherosclerotic calcifications. There is no identified abnormally enlarged lymph node in the abdomen or pelvis which meets CT size criteria for adenopathy. There are multilevel degenerative changes of the spine. There is no identified acute bony abnormality. IMPRESSION: CT ABDOMEN AND PELVIS. 1. Prominent diffuse fatty infiltration of the liver. 2. Relatively hyperdense and/or enhancing lesions in the left and right lobes of the liver, unchanged in size since at least April 28, 2021. 3. The liver does not appear to be cirrhotic. 4. Cholelithiasis without evidence of acute cholecystitis. No biliary ductal dilation. 5. No identified interval acute abnormality in the abdomen or pelvis. Dictated by: Dictated on workstation # [id number] Dict: 08/14/21 1333 Trans: 08/14/21 1359 [facility] [id number] Interpreted by: MARTIR SOUTH MD Electronically signed by: MARTIR SOUTH MD 08/14/21 1359 Reviewed: Reviewed by Me Departure Impression Primary Impression: Cholelithiasis Qualified Codes: K80.20 - Calculus of gallbladder without cholecystitis without obstruction Additional Impression: Recurrent biliary colic Disposition: 07 AGAINST MEDICAL ADVICE Condition: Against Medical Advice Departure-Patient Inst. Decision time for Depature: 14:44 Referrals: JENSEN LEMONS MD, ADAM S DO (PCP/Family) Primary Care Physician Patient Instructions: Gallstones (DC), Gallbladder Diet Add. Discharge Instructions: Avoid spicy greasy foods. Avoid dairy. High-fiber diet. Call Dr. Lemons, general surgery and ask for follow-up consultation for elective gallbladder removal. Return to ER for intractable pain despite Tylenol Motrin and Tums. Copy Copies To 1: JENSEN LEMONS MD, TITUS J Aug 14, 2021 13:02
[2021-08-14 13:05] LABS: MEAN CORPUSCULAR VOLUME 101 fL (80-99); PLATELET COUNT 89 10^3/uL (130-400)
[2021-08-14 13:07] LABS: BASOPHILS % (AUTO) 0 % (0-10); EOSINOPHILS # (AUTO) 0.1 10^3/uL (0.0-0.3); EOSINOPHILS % (AUTO) 1 % (0-10); HEMATOCRIT 50 % (40-54); HEMOGLOBIN 17.2 g/dL (13.3-17.7); LYMPHOCYTES # (AUTO) 1.4 10^3/uL (1.0-4.0); LYMPHOCYTES % (AUTO) 29 % (12-44); MEAN CORPUSCULAR HEMOGLOBIN 35 pg (25-34); MEAN CORPUSCULAR HGB CONC 35 g/dL (32-36); MONOCYTES # (AUTO) 0.4 10^3/uL (0.0-1.0); MONOCYTES % (AUTO) 8 % (0-12); NEUTROPHILS # (AUTO) 2.9 10^3/uL (1.8-7.8); NEUTROPHILS % (AUTO) 61 % (42-75); WHITE BLOOD COUNT 4.7 10^3/uL (4.3-11.0)
[2021-08-14 13:14] LABS: ALBUMIN 4.2 GM/DL (3.2-4.5); POTASSIUM 3.7 MMOL/L (3.6-5.0)
[2021-08-14 13:15] LABS: CALCIUM 8.3 MG/DL (8.5-10.1)
[2021-08-14 13:16] LABS: PROTHROMBIN TIME PATIENT 13.2 SEC (12.2-14.7)
[2021-08-14 13:17] LABS: TOTAL PROTEIN 7.4 GM/DL (6.4-8.2)
[2021-08-14 13:18] LABS: BILIRUBIN,TOTAL 0.9 MG/DL (0.1-1.0)
[2021-08-14 13:20] LABS: CREATININE SERUM 0.76 MG/DL (0.60-1.30)
--- NOTE | 2021-08-14 13:46 | Diagnostic Imaging Report ---
PROCEDURE: CT abdomen and pelvis with contrast. TECHNIQUE: Multiple contiguous axial images were obtained through the abdomen and pelvis after administration of intravenous contrast. Auto Exposure Controls were utilized during the CT exam to meet ALARA standards for radiation dose reduction. All CT scans use one or more of the following dose optimizing techniques: automated exposure control, MA and/or KvP adjustment based on patient size and exam type or iterative reconstruction. DATE: August 14, 2021. COMPARISON: CT chest abdomen pelvis April 28, 2021. INDICATION: 66-year-old male, right upper quadrant abdominal pain. FINDINGS: There is a calcified right lower lobe granuloma. There are dependent linear opacities in the lung bases most consistent with mild atelectasis. The heart is not enlarged. There is no pericardial effusion. The liver is unremarkable in size and contour. There is prominent diffuse fatty infiltration of the liver. The outer liver contours are not nodular. There are relatively hyperdense and potentially enhancing lesions present in the right and left lobes of the liver. One example lesion is in the left lobe on axial image 12 and measures up to 3.1 cm in size. This previously measured 3.3 cm in size on April 28, 2021 and is unchanged. The additional relatively hyperdense lesions and potentially enhancing lesions in the liver are also unchanged in size since April 28, 2021. The main, right, and left portal veins are patent. There are small gallstones. There is no evidence of acute cholecystitis. There is no intrahepatic or extrahepatic bile duct dilation. The main pancreatic duct is not abnormally dilated. Unremarkable appearance of the pancreatic parenchyma. The spleen is normal in size. The adrenal glands are unremarkable. Unremarkable appearance of the renal parenchyma. The urinary collecting systems are not distended. There is no identified renal or ureteral stone. The urinary bladder is unremarkable. There is diverticulosis without evidence of acute diverticulitis. The appendix is best seen on axial image 37 and adjacent sequential images. There is no evidence of acute appendicitis. There is no free intraperitoneal air. There is no drainable fluid collection. There is no free pelvic fluid. There are atherosclerotic calcifications. There is no identified abnormally enlarged lymph node in the abdomen or pelvis which meets CT size criteria for adenopathy. There are multilevel degenerative changes of the spine. There is no identified acute bony abnormality. IMPRESSION: CT ABDOMEN AND PELVIS. 1. Prominent diffuse fatty infiltration of the liver. 2. Relatively hyperdense and/or enhancing lesions in the left and right lobes of the liver, unchanged in size since at least April 28, 2021. 3. The liver does not appear to be cirrhotic. 4. Cholelithiasis without evidence of acute cholecystitis. No biliary ductal dilation. 5. No identified interval acute abnormality in the abdomen or pelvis. Dictated by: Dictated on workstation # [id number]
[2021-08-14 14:07] VITALS: BP 149/94
== END 2021-08-14 14:07 | disposition left against medical advice (07) ==
LOC: EDUNIT# 12:42 → ER 12:44
DX: K80.20 Calculus of gallbladder without cholecystitis without obstruction (principal); K80.50 Calculus of bile duct without cholangitis or cholecystitis without obstruction; J45.909 Unspecified asthma, uncomplicated; Z86.73 Personal history of transient ischemic attack (TIA), and cerebral infarction without residual deficits; Z79.82 Long term (current) use of aspirin
CPT/HCPCS: 74177; 80053; 83690; 85025; 85610; 85730; 86141; 99284; G0480; 36415; 80320

== ENCOUNTER 2021-08-14 20:43 | Emergency (ER) | payer MEDICARE ==
[~2021-08-14] VITALS: Ht 188 cm; Wt 93.0 kg
[2021-08-14 20:44] VITALS: BP 138/94
--- NOTE | 2021-08-14 20:47 | ED Chest Pain ---
General Chief Complaint: Chest Pain Stated Complaint: CP Source: patient Exam Limitations: no limitations History of Present Illness Date Seen by Provider: Aug 14, 2021 Time Seen by Provider: 20:46 Initial Comments To by EMS for second time today with right-sided chest pain. He is intoxicated as he is every time. He was here earlier today and left against advice. Timing/Duration: 1-3 hours Severity/Quality: moderate Radiation: no radiation Activities at Onset: none Prior CP/Workup: no prior chest pain ASA po FLEET ADMINISTRATIVE ASSISTANT: No NTG SL FLEET ADMINISTRATIVE ASSISTANT: No Associated Symptoms: denies symptoms Allergies and Home Medications Allergies Coded Allergies: Penicillins (Verified Allergy, Unknown, 10/17/13) morphine (Verified Allergy, Unknown, pt has received Hydromorphone in the past, 03/18/21) Patient Home Medication List Home Medication List Reviewed: Yes Amitriptyline HCl (Amitriptyline HCl) 50 Mg Tablet, 50 MG PO HS Prescribed by: SARAH MANRIQUEZ on 03/21/21 1133 Aspirin (Aspirin EC) 81 Mg Tablet.dr, 81 MG PO DAILY, (Reported) Entered as Reported by: AURORA GUAMAN on 03/15/21 0959 Pantoprazole Sodium (Pantoprazole Sodium) 40 Mg Tablet.dr, 40 MG PO DAILY Prescribed by: SARAH MANRIQUEZ on 03/21/21 1133 Review of Systems Review of Systems Constitutional: see HPI EENTM: No Symptoms Reported Respiratory: No Symptoms Reported Cardiovascular: See HPI, Chest Pain Gastrointestinal: No Symptoms Reported Genitourinary: No Symptoms Reported Musculoskeletal: no symptoms reported Skin: no symptoms reported Psychiatric/Neurological: No Symptoms Reported Endocrine: No Symptoms Reported Past Ekaplue-Rrxzfv-Olhvbg Hx Immunizations Up To Date Tetanus Booster (TDap): Less than 5yrs PED Vaccines UTD: No First/Initial COVID19 Vaccinat: UNSURE OF DATE. Second COVID19 Vaccination Loc: UNSUE OF DATE Third COVID19 Vaccination Date: 2020 Past Medical History Surgery/Hospitalization HX: orthopedic, heart cath, asthma, a-fib, pancreatitis, stroke, ch. back pain. Surgeries: Yes Cardiac, Orthopedic Respiratory: Yes (History of traumatic pneumothorax) Asthma Cardiac: Yes Atrial Fibrillation, Irregular Heartbeat Neurological: Yes (MILD RIGHT SIDE WEAKNESS) Stroke Genitourinary: No Gastrointestinal: Yes Pancreatitis, Gall Bladder Disease Musculoskeletal: Yes Back Injury, Chronic Back Pain, Fractures Endocrine: No HEENT: No Cancer: No Psychosocial: Yes (Alcohol dependence) Adverse Reaction/Blood Tranf: No Family Medical History History of - respiratory disease 03 FATHER (EMPHYSEMIA) GI Disease Physical Exam Vital Signs Vital Signs - First Documented 08/14/21 20:44 Temp 36.7 Pulse 96 Resp 18 B/P (MAP) 138/94 (109) Pulse Ox 98 O2 Delivery Room Air Capillary Refill : Height, Weight, BMI Height: 6'1.00" Weight: 211lbs. 0.5oz. 95.931325sz; 26.00 BMI Method:Stated General Appearance: No Apparent Distress, WD/WN Respiratory: No Accessory Muscle Use, No Respiratory Distress Cardiovascular: Regular Rate, Rhythm, Normal Peripheral Pulses Gastrointestinal: Normal Bowel Sounds, Non Tender, Soft Extremity: Normal Capillary Refill, Normal Inspection Neurologic/Psychiatric: Alert, Oriented x3 Skin: Normal Color, Warm/Dry Progress/Results/Core Measures Results/Orders Lab Results Laboratory Tests Test 08/14/21 20:45 Range/Units My Orders Orders - TITUS SNOWDEN APRN Ekg Tracing (08/14/21 20:45) Troponin I Nancy (08/14/21 20:45) Vital Signs/I&O 08/14/21 20:44 Temp 36.7 Pulse 96 Resp 18 B/P (MAP) 138/94 (109) Pulse Ox 98 O2 Delivery Room Air Departure Communication (Admissions) 2111-patient has decided he should "get on her here". Assures us we will "never see him again". Signed out against advice. Impression Primary Impression: Left against medical advice Disposition: 07 AGAINST MEDICAL ADVICE Condition: Against Medical Advice Departure-Patient Inst. Referrals: TIANNA GRANADOS DO (PCP/Family) Primary Care Physician TITUS SNOWDEN APRN Aug 14, 2021 20:47
== END 2021-08-14 21:16 | disposition left against medical advice (07) ==
LOC: ER 20:43 → EDUNIT# 20:43 → ER 21:16
DX: R07.9 Chest pain, unspecified (principal); J45.909 Unspecified asthma, uncomplicated; Z86.73 Personal history of transient ischemic attack (TIA), and cerebral infarction without residual deficits; Z79.82 Long term (current) use of aspirin
CPT/HCPCS: 36415; 84484; 93005

== ENCOUNTER 2021-08-15 07:08 | Emergency (ER) | payer MEDICARE ==
[~2021-08-15] VITALS: Ht 187.9 cm; Wt 93.0 kg
[2021-08-15] MEDS ORDERED: DICYCLOMINE 10 MG/ML (BENTYL) 2 ML AMP IM STA (07:38)
--- NOTE | 2021-08-15 07:43 | ED Abdominal Pain ---
General Chief Complaint: Abdominal/GI Problems Stated Complaint: CHEST PAIN Nursing Triage Note: BROUGHT TO ED BY FEMALE FRIEND PATIENT WITH C/O EPIGASTRIC PAIN. THIS IS PATIENT 3RD VISIT IN 24HOURS LEAVES AMA EACH TIME. Source of Information: Patient Exam Limitations: No Limitations History of Present Illness Date Seen by Provider: Aug 15, 2021 Time Seen by Provider: 07:25 Initial Comments Patient is a 66-year-old male well-known to this emergency department who presents to the emergency room today with a chief complaint of "chest pain". He points to the source of the pain as the right upper quadrant and epigastrium. Patient had 2 visits yesterday with similar complaints as well as 2 visits to the emergency department on 12 August. He left AMA every time. Patient admits to being noncompliant with his daily medications but states that he takes baby aspirin daily. He did take aspirin this morning. He cannot recall at what point the pain started. He states he is chronically short of breath. He is not nauseous. The pain does not radiate. Heavy drinker, was intoxicated yesterday morning at his visit. States he has not had any alcohol this morning. Has not taken any other medication for the pain. States the pain is "sharp" and worse with deep breath. Denies any black or bloody stools. No vomiting. States that he is very sad over the loss of his kayo "best friend". States that he wishes to quit drinking. Says that he might be interested in getting information on [facility]. All other review of systems reviewed and negative except as stated. Timing/Duration: Other (unknown) Severity/Quality: Sharp Location: RUQ, Epigastric Radiation: No Radiation Activities at Onset: Other (unknown) Associated Symptoms: Shortness of Air (chronic) Allergies and Home Medications Allergies Coded Allergies: Penicillins (Verified Allergy, Unknown, 10/17/13) morphine (Verified Allergy, Unknown, pt has received Hydromorphone in the past, 03/18/21) Patient Home Medication List Home Medication List Reviewed: Yes Amitriptyline HCl (Amitriptyline HCl) 50 Mg Tablet, 50 MG PO HS Prescribed by: SARAH MANRIQUEZ on 03/21/21 1133 Aspirin (Aspirin EC) 81 Mg Tablet., 81 MG PO DAILY, (Reported) Entered as Reported by: AURORA GUAMAN on 03/15/21 0959 Pantoprazole Sodium (Pantoprazole Sodium) 40 Mg Tablet.dr, 40 MG PO DAILY Prescribed by: SARAH MANRIQUEZ on 03/21/21 1133 Review of Systems Review of Systems Constitutional: see HPI EENTM: No Symptoms Reported Respiratory: No Symptoms Reported Cardiovascular: No Symptoms Reported Gastrointestinal: Abdominal Pain (RUQ and epigastrum) Genitourinary: No Symptoms Reported Musculoskeletal: no symptoms reported Skin: no symptoms reported Psychiatric/Neurological: Depressed, Emotional Problems, Other (alcohol abuse) Endocrine: No Symptoms Reported All Other Systems Reviewed Negative Unless Noted: Yes Past Keucaeb-Zzcepu-Tbraoj Hx Patient Social History Tobacco Use?: Yes Substance use?: No Alcohol Use?: Yes Alcohol type: Hard Liquor Alcohol Frequency: Daily Immunizations Up To Date Tetanus Booster (TDap): Less than 5yrs PED Vaccines UTD: No First/Initial COVID19 Vaccinat: YES Second COVID19 Vaccination Loc: UNSUE OF DATE Third COVID19 Vaccination Date: 2020 COVID19 Vaccine Box Packer: ? Past Medical History Surgery/Hospitalization HX: orthopedic, heart cath, asthma, a-fib, pancreatitis, stroke, ch. back pain. Surgeries: Yes Cardiac, Orthopedic Respiratory: Yes (History of traumatic pneumothorax) Asthma Cardiac: Yes Atrial Fibrillation, Irregular Heartbeat Neurological: Yes (MILD RIGHT SIDE WEAKNESS) Stroke Genitourinary: No Gastrointestinal: Yes Pancreatitis, Gall Bladder Disease Musculoskeletal: Yes Back Injury, Chronic Back Pain, Fractures Endocrine: No HEENT: No Cancer: No Psychosocial: Yes (Alcohol dependence) Adverse Reaction/Blood Tranf: No Family Medical History History of - respiratory disease 03 FATHER (EMPHYSEMIA) GI Disease Physical Exam Vital Signs Vital Signs - First Documented 08/15/21 07:11 Temp 36.3 Pulse 87 Resp 18 B/P (MAP) 162/103 (122) Pulse Ox 92 O2 Delivery Room Air Capillary Refill : Less Than 3 Seconds Height/Weight/BMI Height: 6'1.00" Weight: 211lbs. 0.5oz. 95.960059qq; 26.00 BMI Method:Stated General Appearance: WD/WN, no apparent distress HEENT: PERRL/EOMI Neck: normal inspection Respiratory: lungs clear, normal breath sounds, no respiratory distress, no accessory muscle use Cardiovascular: regular rate, rhythm, other (frequent ectopy noted; no murmus) Gastrointestinal: soft, tenderness (RUQ and epigastrum; noon distended; normal BS) Extremities: normal range of motion, normal inspection Skin: normal color, warm/dry Progress/Results/Core Measures Results/Orders Lab Results Laboratory Tests Test 08/15/21 08:22 Range/Units White Blood Count 3.5 L 4.3-11.0 10^3/uL Red Blood Count 4.41 4.30-5.52 10^6/uL Hemoglobin 15.4 13.3-17.7 g/dL Hematocrit 45 40-54 % Mean Corpuscular Volume 102 H 80-99 fL Mean Corpuscular Hemoglobin 35 H 25-34 pg Mean Corpuscular Hemoglobin Concent 34 32-36 g/dL Red Cell Distribution Width 15.5 H 10.0-14.5 % Platelet Count 65 L 130-400 10^3/uL Mean Platelet Volume 11.6 9.0-12.2 fL Immature Granulocyte % (Auto) 0 % Neutrophils (%) (Auto) 67 42-75 % Lymphocytes (%) (Auto) 24 12-44 % Monocytes (%) (Auto) 8 0-12 % Eosinophils (%) (Auto) 1 0-10 % Basophils (%) (Auto) 1 0-10 % Neutrophils # (Auto) 2.3 1.8-7.8 10^3/uL Lymphocytes # (Auto) 0.8 L 1.0-4.0 10^3/uL Monocytes # (Auto) 0.3 0.0-1.0 10^3/uL Eosinophils # (Auto) 0.0 0.0-0.3 10^3/uL Basophils # (Auto) 0.0 0.0-0.1 10^3/uL Immature Granulocyte # (Auto) 0.0 0.0-0.1 10^3/uL Percent Immature Platelet Fraction 11.9 H 0.0-7.6 % Sodium Level 140 135-145 MMOL/L Potassium Level 3.6 3.6-5.0 MMOL/L Chloride Level 102 98-107 MMOL/L Carbon Dioxide Level 21 21-32 MMOL/L Anion Gap 17 H 5-14 MMOL/L Blood Urea Nitrogen 10 7-18 MG/DL Creatinine 0.76 0.60-1.30 MG/DL Estimat Glomerular Filtration Rate 100 BUN/Creatinine Ratio 13 Glucose Level 90 70-105 MG/DL Calcium Level 7.9 L 8.5-10.1 MG/DL Corrected Calcium 8.0 L 8.5-10.1 MG/DL Total Bilirubin 0.9 0.1-1.0 MG/DL Aspartate Amino Transf (AST/SGOT) 97 H 5-34 U/L Alanine Aminotransferase (ALT/SGPT) 61 H 0-55 U/L Alkaline Phosphatase 50 40-136 U/L Troponin I 0.070 H <0.028 NG/ML Total Protein 6.7 6.4-8.2 GM/DL Albumin 3.9 3.2-4.5 GM/DL My Orders Orders - LION REED MD Ekg Tracing (08/15/21 07:16) Cbc With Automated Diff (08/15/21 07:38) Comprehensive Metabolic Panel (08/15/21 07:38) Troponin I [place] (08/15/21 07:38) Dicyclomine Injection (Bentyl Injection) (08/15/21 07:38) Antacid Suspension (Mylanta Suspension (08/15/21 07:45) Sucralfate Tablet (Carafate Tablet) (08/15/21 07:45) Lidocaine 2% Viscous 15 Ml (Xylocaine Vi (08/15/21 07:45) Vital Signs/I&O 08/15/21 08/15/21 07:11 07:35 Temp 36.3 Pulse 87 96 Resp 18 18 B/P (MAP) 162/103 (122) 138/70 Pulse Ox 92 91 O2 Delivery Room Air Room Air Blood Pressure Mean: 92 Progress Progress Note : Time: 09:10 Progress Note Patient is just now getting his Bentyl and GI cocktail secondary to multiple critical patients in the emergency department. I reviewed his labs they are reassuring, he has a little bit of elevation in his liver functions, mild. This is consistent with his history of alcohol abuse. History of troponin is 0.070. His troponin has been chronically elevated over many months. He did have a left heart catheterization in May 2021 which showed no concerning obstructive disease. He did not have stenting or angioplasty. His chest pain is inconsistent with acute cardiac ischemia. He points to the right upper quadrant, he is tender over the liver and epigastrium. He has no associated symptoms of lightheadedness, palpitations, shortness of breath or nausea. His shortness of breath is mostly related to his smoking and is chronic for him. His EKG is normal, no ST segment elevation or depression. He is having some ectopy with frequent PVCs. I have strongly encouraged him to quit smoking and drinking. We talked about [facility] and alcohol rehab. My plan is to send him home and encourage compliance with his daily medications specifically his pantoprazole and daily of aspirin and antihypertensives. Return precautions given. CT 24 hours ago showed cholelithiasis. Initial ECG Impression Date: Aug 15, 2021 Initial ECG Impression Time: 07:20 Initial ECG Rate: 93 Initial ECG Intervals: Normal Comment W[place] 152 QRS 99 QTc 469 Frequent ectopy with PVCs, no ST segment elevation or depression. Departure Impression Primary Impression: Right upper quadrant abdominal pain Additional Impressions: Elevated troponin level not due myocardial infarction Chronic alcoholism Disposition: HOME, SELF-CARE Condition: Stable Departure-Patient Inst. Decision time for Depature: 09:13 Referrals: MATTHEW BARRIGA MD [facility] TIANNA GRANADOS DO (PCP/Family) Primary Care Physician Patient Instructions: Alcohol Use Disorder (DC), Abdominal Pain, Adult ED Add. Discharge Instructions: Please take your medications as prescribed, specifically your daily aspirin, blood pressure medications as well as your pantoprazole for acid reflux/GERD. You need to quit drinking alcohol. I have added contact information for [facility] which is the alcohol treatment center. You should call them and go for an appointment to talk about either inpatient or outpatient treatment. Avoid Tylenol products if you continue to drink. You can use [id number] Maalox for upset stomach Return to the emergency room for worsening pain especially with worsening shortness of breath, vomiting, high fever or worsening abdominal pain Follow-up this week with your primary care provider. You should also probably follow-up outpatient with a assessment specialist regarding chronic chest pain. I have attached contact information for Dr Barriga, the washer operator ip litigation paralegal. [facility] [phone], [place] [id number] [place] [address] - [facility] [address] [place] [id number] Copy Copies To 1: TIANNA GRANADOS DO Copies To 2: [facility] Aug 15, 2021 07:43
[2021-08-15] MEDS ORDERED: LIDOCAINE 2% VISCOUS 15 ML UDC PO ONE (07:45)
[2021-08-15] MEDS ORDERED: ANTACID SUSP 30 ML UDC (MYLANTA) PO ONE (07:45)
[2021-08-15] MEDS ORDERED: SUCRALFATE 1 GM (CARAFATE) TAB PO ONE (07:45)
[2021-08-15 08:31] LABS: BASOPHILS % (AUTO) 1 % (0-10); EOSINOPHILS % (AUTO) 1 % (0-10); NEUTROPHILS # (AUTO) 2.3 10^3/uL (1.8-7.8)
[2021-08-15 08:33] LABS: HEMATOCRIT 45 % (40-54); HEMOGLOBIN 15.4 g/dL (13.3-17.7); LYMPHOCYTES # (AUTO) 0.8 10^3/uL (1.0-4.0); LYMPHOCYTES % (AUTO) 24 % (12-44); MEAN CORPUSCULAR HEMOGLOBIN 35 pg (25-34); MEAN CORPUSCULAR HGB CONC 34 g/dL (32-36); MEAN CORPUSCULAR VOLUME 102 fL (80-99); MEAN PLATELET VOLUME 11.6 fL (9.0-12.2); MONOCYTES # (AUTO) 0.3 10^3/uL (0.0-1.0); MONOCYTES % (AUTO) 8 % (0-12); NEUTROPHILS % (AUTO) 67 % (42-75); PLATELET COUNT 65 10^3/uL (130-400); WHITE BLOOD COUNT 3.5 10^3/uL (4.3-11.0)
[2021-08-15 08:36] LABS: ALBUMIN 3.9 GM/DL (3.2-4.5)
[2021-08-15 08:37] LABS: POTASSIUM 3.6 MMOL/L (3.6-5.0)
[2021-08-15 08:38] LABS: CALCIUM 7.9 MG/DL (8.5-10.1)
[2021-08-15 08:39] LABS: TOTAL PROTEIN 6.7 GM/DL (6.4-8.2)
[2021-08-15 08:41] LABS: BILIRUBIN,TOTAL 0.9 MG/DL (0.1-1.0)
[2021-08-15 08:43] LABS: CREATININE SERUM 0.76 MG/DL (0.60-1.30)
[2021-08-15 09:49] VITALS: BP 145/55
== END 2021-08-15 09:43 | disposition home or self-care (01) ==
LOC: EDUNIT# 07:08 → ER 07:10
DX: R10.11 Right upper quadrant pain (principal); F10.20 Alcohol dependence, uncomplicated; R77.8 Other specified abnormalities of plasma proteins; R79.89 Other specified abnormal findings of blood chemistry; R06.02 Shortness of breath; I48.91 Unspecified atrial fibrillation; J45.909 Unspecified asthma, uncomplicated; G89.29 Other chronic pain; M54.9 Dorsalgia, unspecified; Z79.82 Long term (current) use of aspirin; Z91.14 Patient's other noncompliance with medication regimen
CPT/HCPCS: 36415; 80053; 84484; 85025; 93005

== ENCOUNTER 2021-08-27 02:13 | Emergency (ER) | payer MEDICARE ==
[~2021-08-27] VITALS: Ht 180 cm; Wt 90.9 kg
[2021-08-27 02:23] VITALS: BP 130/82
[2021-08-27] MEDS ORDERED: LACTATED RINGERS 1,000 ML IV ONE (02:45)
[2021-08-27 03:01] LABS: BASOPHILS % (AUTO) 0 % (0-10); EOSINOPHILS % (AUTO) 0 % (0-10); HEMATOCRIT 50 % (40-54); HEMOGLOBIN 16.8 g/dL (13.3-17.7); LYMPHOCYTES # (AUTO) 0.8 10^3/uL (1.0-4.0); LYMPHOCYTES % (AUTO) 16 % (12-44); MEAN CORPUSCULAR HEMOGLOBIN 34 pg (25-34); MEAN CORPUSCULAR HGB CONC 34 g/dL (32-36); MEAN CORPUSCULAR VOLUME 101 fL (80-99); MEAN PLATELET VOLUME 11.7 fL (9.0-12.2); MONOCYTES # (AUTO) 0.4 10^3/uL (0.0-1.0); MONOCYTES % (AUTO) 8 % (0-12); NEUTROPHILS # (AUTO) 3.9 10^3/uL (1.8-7.8); NEUTROPHILS % (AUTO) 75 % (42-75); PLATELET COUNT 69 10^3/uL (130-400); WHITE BLOOD COUNT 5.2 10^3/uL (4.3-11.0)
--- NOTE | 2021-08-27 03:02 | ED Chest Pain ---
General Chief Complaint: General Problems/Pain Stated Complaint: CP Nursing Triage Note: PT TO ED W/ C/O MULTIPLE FALLS, INTOXICATION, CHEST ET ABD PAIN UPON PALPATION, CHRONIC PER EMS Source: patient, EMS Exam Limitations: intoxication History of Present Illness Date Seen by Provider: Aug 27, 2021 Time Seen by Provider: 12:19 Allergies and Home Medications Allergies Coded Allergies: Penicillins (Verified Allergy, Unknown, 10/17/13) morphine (Verified Allergy, Unknown, pt has received Hydromorphone in the past, 03/18/21) Patient Home Medication List Home Medication List Reviewed: Yes Amitriptyline HCl (Amitriptyline HCl) 50 Mg Tablet, 50 MG PO HS Prescribed by: SARAH MANRIQUEZ on 03/21/21 1133 Aspirin (Aspirin EC) 81 Mg Tablet.dr, 81 MG PO DAILY, (Reported) Entered as Reported by: AURORA GUAMAN on 03/15/21 0959 Pantoprazole Sodium (Pantoprazole Sodium) 40 Mg Tablet.dr, 40 MG PO DAILY Prescribed by: SARAH MANRIQUEZ on 03/21/21 1133 Past Blaygus-Mlxepv-Ohhklf Hx Patient Social History Tobacco Use?: Yes Use of E-Cig and/or Vaping dev: No Substance use?: No Alcohol Use?: Yes Alcohol type: Beer, Hard Liquor Alcohol Frequency: Daily Pt feels they are or have been: No Immunizations Up To Date Tetanus Booster (TDap): Less than 5yrs PED Vaccines UTD: No First/Initial COVID19 Vaccinat: YES Second COVID19 Vaccination Loc: UNSUE OF DATE Third COVID19 Vaccination Date: 2020 Past Medical History Surgery/Hospitalization HX: orthopedic, heart cath, asthma, a-fib, pancreatitis, stroke, ch. back pain. Surgeries: Yes Cardiac, Orthopedic Respiratory: Yes (History of traumatic pneumothorax) Asthma Cardiac: Yes Atrial Fibrillation, Irregular Heartbeat Neurological: Yes (MILD RIGHT SIDE WEAKNESS) Stroke Genitourinary: No Gastrointestinal: Yes Pancreatitis, Gall Bladder Disease Musculoskeletal: Yes Back Injury, Chronic Back Pain, Fractures Endocrine: No HEENT: No Cancer: No Psychosocial: Yes (Alcohol dependence) Adverse Reaction/Blood Tranf: No Family Medical History History of - respiratory disease 03 FATHER (EMPHYSEMIA) GI Disease Physical Exam Vital Signs Vital Signs - First Documented 08/27/21 02:23 Temp 36.7 Pulse 94 Resp 16 B/P (MAP) 130/82 (98) Pulse Ox 94 O2 Delivery Room Air Capillary Refill : Less Than 3 Seconds Height, Weight, BMI Height: 6'1.00" Weight: 211lbs. 0.5oz. 95.919755kv; 28.00 BMI Method:Stated Progress/Results/Core Measures Results/Orders Lab Results Laboratory Tests Test 08/27/21 02:54 Range/Units White Blood Count 5.2 4.3-11.0 10^3/uL Red Blood Count 4.88 4.30-5.52 10^6/uL Hemoglobin 16.8 13.3-17.7 g/dL Hematocrit 50 40-54 % Mean Corpuscular Volume 101 H 80-99 fL Mean Corpuscular Hemoglobin 34 25-34 pg Mean Corpuscular Hemoglobin Concent 34 32-36 g/dL Red Cell Distribution Width 14.8 H 10.0-14.5 % Platelet Count 69 L 130-400 10^3/uL Mean Platelet Volume 11.7 9.0-12.2 fL Immature Granulocyte % (Auto) 0 % Neutrophils (%) (Auto) 75 42-75 % Lymphocytes (%) (Auto) 16 12-44 % Monocytes (%) (Auto) 8 0-12 % Eosinophils (%) (Auto) 0 0-10 % Basophils (%) (Auto) 0 0-10 % Neutrophils # (Auto) 3.9 1.8-7.8 10^3/uL Lymphocytes # (Auto) 0.8 L 1.0-4.0 10^3/uL Monocytes # (Auto) 0.4 0.0-1.0 10^3/uL Eosinophils # (Auto) 0.0 0.0-0.3 10^3/uL Basophils # (Auto) 0.0 0.0-0.1 10^3/uL Immature Granulocyte # (Auto) 0.0 0.0-0.1 10^3/uL Prothrombin Time 13.2 12.2-14.7 SEC INR Comment 1.0 0.8-1.4 Activated Partial Thromboplast Time 26 24-35 SEC Sodium Level 140 135-145 MMOL/L Potassium Level 3.6 3.6-5.0 MMOL/L Chloride Level 98 98-107 MMOL/L Carbon Dioxide Level 19 L 21-32 MMOL/L Anion Gap 23 H 5-14 MMOL/L Blood Urea Nitrogen 10 7-18 MG/DL Creatinine 0.75 0.60-1.30 MG/DL Estimat Glomerular Filtration Rate 100 BUN/Creatinine Ratio 13 Glucose Level 64 L 70-105 MG/DL Calcium Level 8.4 L 8.5-10.1 MG/DL Corrected Calcium 8.2 L 8.5-10.1 MG/DL Magnesium Level 1.9 1.6-2.4 MG/DL Total Bilirubin 1.4 H 0.1-1.0 MG/DL Aspartate Amino Transf (AST/SGOT) 203 H 5-34 U/L Alanine Aminotransferase (ALT/SGPT) 103 H 0-55 U/L Alkaline Phosphatase 68 40-136 U/L Myoglobin 69.2 10.0-92.0 NG/ML Troponin I 0.074 H <0.028 NG/ML Total Protein 7.5 6.4-8.2 GM/DL Albumin 4.2 3.2-4.5 GM/DL Lipase 29 8-78 U/L My Orders Orders - SALLY SHEIKH MD Cbc With Automated Diff (08/27/21 02:32) Magnesium (08/27/21 02:32) Ekg Tracing (08/27/21 02:32) Comprehensive Metabolic Panel (08/27/21 02:32) Myoglobin Serum (08/27/21 02:32) Protime With Inr (08/27/21 02:32) Partial Thromboplastin Time (08/27/21 02:32) O2 (08/27/21 02:32) Monitor-Rhythm Ecg Trace Only (08/27/21 02:32) Ed Iv/Invasive Line Start (08/27/21 02:32) Lipase (08/27/21 02:32) Troponin I [place] (08/27/21 02:32) Lactated Ringers (Lr 1000 Ml Iv Solution (08/27/21 02:45) Vital Signs/I&O 08/27/21 02:23 Temp 36.7 Pulse 94 Resp 16 B/P (MAP) 130/82 (98) Pulse Ox 94 O2 Delivery Room Air Blood Pressure Mean: 98 Departure Impression Primary Impression: Chest wall pain Additional Impressions: Abdominal pain Qualified Codes: R10.9 - Unspecified abdominal pain Fall on same level Qualified Codes: W18.30XA - Fall on same level, unspecified, initial encounter Alcohol intoxication Qualified Codes: F10.929 - Alcohol use, unspecified with intoxication, unspecified Left against medical advice Disposition: 07 AGAINST MEDICAL ADVICE Condition: Against Medical Advice Departure-Patient Inst. Referrals: TIANNA GRANADOS DO (PCP/Family) Primary Care Physician SALLY SHEIKH MD Aug 27, 2021 03:02
[2021-08-27 03:12] LABS: ALBUMIN 4.2 GM/DL (3.2-4.5); POTASSIUM 3.6 MMOL/L (3.6-5.0)
[2021-08-27 03:13] LABS: CALCIUM 8.4 MG/DL (8.5-10.1)
[2021-08-27 03:14] LABS: TOTAL PROTEIN 7.5 GM/DL (6.4-8.2)
[2021-08-27 03:15] LABS: PROTHROMBIN TIME PATIENT 13.2 SEC (12.2-14.7)
[2021-08-27 03:16] LABS: BILIRUBIN,TOTAL 1.4 MG/DL (0.1-1.0)
[2021-08-27 03:18] LABS: CREATININE SERUM 0.75 MG/DL (0.60-1.30)
[2021-08-27 03:21] LABS: MAGNESIUM 1.9 MG/DL (1.6-2.4)
== END 2021-08-27 03:01 | disposition left against medical advice (07) ==
LOC: EDUNIT# 02:13 → ER 02:19
DX: R07.89 Other chest pain (principal); R10.9 Unspecified abdominal pain; F10.229 Alcohol dependence with intoxication, unspecified; I48.91 Unspecified atrial fibrillation; J45.909 Unspecified asthma, uncomplicated; Z86.73 Personal history of transient ischemic attack (TIA), and cerebral infarction without residual deficits; Z95.9 Presence of cardiac and vascular implant and graft, unspecified; Z79.82 Long term (current) use of aspirin; W18.30XA Fall on same level, unspecified, initial encounter
CPT/HCPCS: 36415; 80053; 83690; 83735; 83874; 84484; 85025; 85610; 85730; 93005

== ENCOUNTER 2021-08-31 22:05 | Emergency (ER) | payer MEDICARE ==
[~2021-08-31] VITALS: Ht 188 cm; Wt 90.7 kg
[2021-08-31] MEDS ORDERED: ONDANSETRON 4 MG/2 ML (SDV) Z0FRAN IVP ONE (22:15)
--- NOTE | 2021-08-31 22:15 | ED Fall/Injury ---
General Stated Complaint: VOMITING Source: patient Exam Limitations: no limitations History of Present Illness Date Seen by Provider: Aug 31, 2021 Time Seen by Provider: 21:55 Initial Comments Patient to ER by EMS from home with chief complaint that on Sunday, 3 days ago he had a fall struck his head no loss of consciousness. Since then he is not having nausea in the past day he has been having vomiting he states every 10 minutes. He has a history of alcohol-related dementia. He is not complaining of any pain in his neck or back. Just nausea and vomiting. He states he has not been checked out but he was here in the ER earlier this week and left AMA. Patient states he is having pain all up in his belly to his lower chest radiat ing to both left and right anterior sides. Patient states he uses Plavix with history of coronary disease. He did submit to some labs on the and had a negative lipase. His troponin was measurable but he did not stick around for repeat troponin. Allergies and Home Medications Allergies Coded Allergies: Penicillins (Verified Allergy, Unknown, 10/17/13) morphine (Verified Allergy, Unknown, pt has received Hydromorphone in the past, 03/18/21) Patient Home Medication List Home Medication List Reviewed: Yes Amitriptyline HCl (Amitriptyline HCl) 50 Mg Tablet, 50 MG PO HS Prescribed by: SARAH MANRIQUEZ on 03/21/21 1133 Aspirin (Aspirin EC) 81 Mg Tablet., 81 MG PO DAILY, (Reported) Entered as Reported by: AURORA GUAMAN on 03/15/21 0959 Ondansetron (Ondansetron Odt) 4 Mg Tab.rapdis, 4 MG PO Q6H PRN for NAUSEA/VOMITING Prescribed by: IMMANUEL HADDAD on 08/31/21 7760 Pantoprazole Sodium (Pantoprazole Sodium) 40 Mg Tablet., 40 MG PO DAILY Prescribed by: SARAH MANRIQUEZ on 03/21/21 1133 Review of Systems Review of Systems Constitutional: No chills, No diaphoresis Eyes: Denies Blindness, Denies Blurred Vision Ears, Nose, Mouth, Throat: denies ear pain, denies ear discharge Respiratory: No cough, No phlegm, No short of breath Cardiovascular: chest pain; No edema; syncope Gastrointestinal: No abdominal pain, No constipation, No diarrhea Genitourinary: No discharge, No dysuria All Other Systems Reviewed Negative Unless Noted: Yes Past Yuwgnbq-Ofmech-Ilopge Hx Patient Social History Tobacco Use?: No Use of E-Cig and/or Vaping dev: No Alcohol Use?: Yes Alcohol type: Beer Immunizations Up To Date Tetanus Booster (TDap): Less than 5yrs PED Vaccines UTD: No First/Initial COVID19 Vaccinat: YES Second COVID19 Vaccination Loc: UNSUE OF DATE Third COVID19 Vaccination Date: 2020 Past Medical History Surgery/Hospitalization HX: orthopedic, heart cath, asthma, a-fib, pancreatitis, stroke, ch. back pain. Surgeries: Yes Cardiac, Orthopedic Respiratory: Yes (History of traumatic pneumothorax) Asthma Cardiac: Yes Atrial Fibrillation, Irregular Heartbeat Neurological: Yes (MILD RIGHT SIDE WEAKNESS) Stroke Genitourinary: No Gastrointestinal: Yes Pancreatitis, Gall Bladder Disease Musculoskeletal: Yes Back Injury, Chronic Back Pain, Fractures Endocrine: No HEENT: No Cancer: No Psychosocial: Yes (Alcohol dependence) Adverse Reaction/Blood Tranf: No Family Medical History History of - respiratory disease 03 FATHER (EMPHYSEMIA) GI Disease Physical Exam Vital Signs Vital Signs - First Documented 08/31/21 22:06 Temp 36.1 Pulse 89 Resp 20 B/P (MAP) 133/82 (99) Pulse Ox 99 O2 Delivery Room Air Capillary Refill : Height, Weight, BMI Height: 6'1.00" Weight: 211lbs. 0.5oz. [id number]; 28.00 BMI Method:Stated General Appearance: WD/WN, no apparent distress HEENT: PERRL/EOMI, pharynx normal Neck: full range of motion, supple, normal inspection Cardiovascular: normal peripheral pulses, regular rate, rhythm Respiratory: lungs clear, normal breath sounds, no respiratory distress, no accessory muscle use Peripheral Pulses: 2+ Radial Pulses (R), 2+ Radial Pulses (L) Gastrointestinal: normal bowel sounds, non tender, soft Extremities: normal inspection, normal capillary refill Neurologic/Psychiatric: alert, normal mood/affect, oriented x 3 Skin: normal color, warm/dry [place] Coma Score Best Eye Response: (4) Open Spontaneously Best Verbal Response: (5) Oriented Best Motor Response: (6) Obeys Commands Fani Total: 15 Progress/Results/Core Measures Results/Orders Lab Results Laboratory Tests Test 08/31/21 22:43 09/01/21 00:50 Range/Units White Blood Count 7.7 4.3-11.0 10^3/uL Red Blood Count 4.68 4.30-5.52 10^6/uL Hemoglobin 16.2 13.3-17.7 g/dL Hematocrit 46 40-54 % Mean Corpuscular Volume 99 80-99 fL Mean Corpuscular Hemoglobin 35 H 25-34 pg Mean Corpuscular Hemoglobin Concent 35 32-36 g/dL Red Cell Distribution Width 13.4 10.0-14.5 % Platelet Count 78 L 130-400 10^3/uL Mean Platelet Volume 12.7 H 9.0-12.2 fL Immature Granulocyte % (Auto) 0 % Neutrophils (%) (Auto) 87 H 42-75 % Lymphocytes (%) (Auto) 4 L 12-44 % Monocytes (%) (Auto) 9 0-12 % Eosinophils (%) (Auto) 0 0-10 % Basophils (%) (Auto) 0 0-10 % Neutrophils # (Auto) 6.7 1.8-7.8 10^3/uL Lymphocytes # (Auto) 0.3 L 1.0-4.0 10^3/uL Monocytes # (Auto) 0.7 0.0-1.0 10^3/uL Eosinophils # (Auto) 0.0 0.0-0.3 10^3/uL Basophils # (Auto) 0.0 0.0-0.1 10^3/uL Immature Granulocyte # (Auto) 0.0 0.0-0.1 10^3/uL Neutrophils % (Manual) 88 % Lymphocytes % (Manual) 0 % Monocytes % (Manual) 7 % Eosinophils % (Manual) 0 % Basophils % (Manual) 0 % Band Neutrophils 3 % Reactive Lymphocytes 2 % Clumped Platelets OCCASIONAL Percent Immature Platelet Fraction 18.3 H 0.0-7.6 % Polychromasia SLIGHT Anisocytosis SLIGHT Sodium Level 131 L 135-145 MMOL/L Potassium Level 3.7 3.6-5.0 MMOL/L Chloride Level 92 L 98-107 MMOL/L Carbon Dioxide Level 16 L 21-32 MMOL/L Anion Gap 23 H 5-14 MMOL/L Blood Urea Nitrogen 12 7-18 MG/DL Creatinine 1.16 0.60-1.30 MG/DL Estimat Glomerular Filtration Rate 70 BUN/Creatinine Ratio 10 Glucose Level 164 H 70-105 MG/DL Calcium Level 9.2 8.5-10.1 MG/DL Corrected Calcium 9.0 8.5-10.1 MG/DL Total Bilirubin 2.4 H 0.1-1.0 MG/DL Aspartate Amino Transf (AST/SGOT) 128 H 5-34 U/L Alanine Aminotransferase (ALT/SGPT) 87 H 0-55 U/L Alkaline Phosphatase 70 40-136 U/L Troponin I 0.031 H 0.035 H <0.028 NG/ML Total Protein 7.7 6.4-8.2 GM/DL Albumin 4.3 3.2-4.5 GM/DL Lipase 44 8-78 U/L Serum Alcohol < 10 <10 MG/DL Magnesium Level 1.7 1.6-2.4 MG/DL Myoglobin 68.2 10.0-92.0 NG/ML My Orders Orders - IMMANUEL HADDAD Ondansetron Injection (Zofran Injectio (08/31/21 22:15) Ct Head/Cervical Spine Wo (08/31/21 22:11) Ekg Tracing (08/31/21 22:15) Cbc With Automated Diff (08/31/21 22:15) Comprehensive Metabolic Panel (08/31/21 22:15) Alcohol (08/31/21 22:15) Troponin I Nancy (08/31/21 22:15) Lipase (08/31/21 22:15) Manual Differential (08/31/21 22:43) Troponin I Nancy (09/01/21 00:45) Magnesium (08/31/21 23:59) Myoglobin Serum (08/31/21 23:59) Monitor-Rhythm Ecg Trace Only (08/31/21 23:59) Ed Iv/Invasive Line Start (08/31/21 23:59) Nitroglycerin 0.4 Mg Btl 25's (Nitrostat (09/01/21 00:00) Aspirin Chewable Tablet (Baby Aspirin Ch (09/01/21 00:00) Fentanyl Inj (Sublimaze Injection) (09/01/21 00:30) Chest 1 View, Ap/Pa Only (09/01/21 00:01) Medications Given in ED Current Medications Medications Dose Ordered Sig/Yoseph Route Start Time Stop Time Status Last Admin Dose Admin Aspirin 324 mg ONCE ONCE PO 09/01/21 00:00 09/01/21 00:01 DC 09/01/21 00:19 324 MG Fentanyl Citrate 25 mcg ONCE ONCE IVP 09/01/21 00:30 09/01/21 00:31 DC 09/01/21 00:45 25 MCG Ondansetron HCl 8 mg ONCE ONCE IVP 08/31/21 22:15 08/31/21 22:16 DC 08/31/21 22:48 8 MG Vital Signs/I&O 08/31/21 09/01/21 22:06 02:04 Temp 36.1 36.1 Pulse 89 95 Resp 20 18 B/P (MAP) 133/82 (99) 150/122 Pulse Ox 99 94 O2 Delivery Room Air Room Air Progress Progress Note #1: Time: :13 Progress Note Patient frequently comes and leaves AGAINST MEDICAL ADVICE before with unremarkable work-up so we will try and get some nausea medicine and him get a CT of his head and C-spine. Suspect he has a concussion versus his chronic nausea and vomiting. He has a history of gallstones noted. He will let us get some labs and EKG then we will perform these as well. He is not complaining of any chest pain today Progress Note #2: Time: 23:51 Progress Note Patient still having pain does not want anything else for nausea. He is no longer retching. We will give him some aspirin and trial a nitroglycerin. Because of his syncopal episode several days ago and marginally elevated troponin we will look for an observation summary with cardiology. We are unfortunately on diversion for the next couple shifts. Progress Note #3: Time: : Progress Note Patient states that he does not want to travel to [place] or elsewhere. He wants to do all his work-up outpatient here. Explained to him that this would not be our first choice given his marginally elevated troponin, complaints of chest pain and syncope several days ago. Patient states his pain is gone now and he just wants to go home and sleep. He has agreed to do a repeat troponin. We will try and get him some follow-up this week with Dr. Barriga, cardiology. We explained to him that this is Plan B and encouraged him to return to the ER for worsening or repeat symptoms. Patient agreed to do this. Progress Note #4: Time: 01:22 Progress Note Delta troponin less than 15% rise it is stable. Consistent with his chronic marginal detected troponin. Plan to allow him to go home as per his plan to follow-up with Dr. Barriga this morning. Initial ECG Impression Date: Aug 31, 2021 Initial ECG Impression Time: 22:28 Initial ECG Rate: 91 Initial ECG Rhythm: Normal Sinus Initial ECG Intervals: Normal Initial ECG Impression: Normal Initial ECG Comparisson: Unchanged Comment Normal sinus rhythm with no clinically relevant ST elevation or depression. Diagnostic Imaging Diagonstic Imaging: CT Plain Films/CT/US/NM/MRI: c-spine, head Comments No acute intracranial pathology. No acute findings in the cervical spine. Reviewed: Reviewed [place] Study, Reviewed by Me Diagonstic Imaging: Xray Plain Films/CT/US/NM/MRI: chest Comments No acute cardiopulmonary process on 1 view chest x-ray Reviewed: Reviewed by Me Departure Impression Primary Impression: Falls frequently Additional Impressions: Syncope and collapse Chest pain Qualified Codes: R07.9 - Chest pain, unspecified Elevated troponin I level Concussion Qualified Codes: S06.0X1A - Concussion with loss of consciousness of 30 minutes or less, initial encounter Disposition: 01 HOME, SELF-CARE Condition: Stable Departure-Patient Inst. Decision time for Depature: 01:22 Referrals: MATTHEW BARRIGA MD [facility] TIANNA GRANADOS DO (PCP/Family) Primary Care Physician Patient Instructions: Concussion, Adult ED, Syncope (Fainting) (DC) Add. Discharge Instructions: Zofran/ondansetron 1 tablet under the tongue every 6 hours as necessary for nausea or vomiting. Drink plenty of fluids. Call Dr. Barriga, cardiology and request follow-up appointment this week or next to discuss your chronically elevated troponin and your risk for developing heart disease. Scripts Ondansetron (Ondansetron Odt) 4 Mg Tab.rapdis 4 MG PO Q6H PRN for NAUSEA/VOMITING, #15 TAB 0 Refills Prov: IMMANUEL HADDAD 08/31/21 Copy Copies To 1: MATTHEW BARRIGA MD [facility] IMMANUEL HADDAD Aug 31, 2021 22:14
[2021-08-31 22:46] LABS: BASOPHILS % (AUTO) 0 % (0-10); EOSINOPHILS % (AUTO) 0 % (0-10); MEAN CORPUSCULAR HEMOGLOBIN 35 pg (25-34); MEAN PLATELET VOLUME 12.7 fL (9.0-12.2); MONOCYTES % (AUTO) 9 % (0-12); PLATELET COUNT 78 10^3/uL (130-400)
[2021-08-31 22:48] LABS: HEMATOCRIT 46 % (40-54); HEMOGLOBIN 16.2 g/dL (13.3-17.7); LYMPHOCYTES # (AUTO) 0.3 10^3/uL (1.0-4.0); LYMPHOCYTES % (AUTO) 4 % (12-44); MEAN CORPUSCULAR HGB CONC 35 g/dL (32-36); MEAN CORPUSCULAR VOLUME 99 fL (80-99); MONOCYTES # (AUTO) 0.7 10^3/uL (0.0-1.0); NEUTROPHILS # (AUTO) 6.7 10^3/uL (1.8-7.8); NEUTROPHILS % (AUTO) 87 % (42-75); WHITE BLOOD COUNT 7.7 10^3/uL (4.3-11.0)
[2021-08-31 22:58] LABS: ALBUMIN 4.3 GM/DL (3.2-4.5); CHLORIDE 92 MMOL/L (98-107); POTASSIUM 3.7 MMOL/L (3.6-5.0); SODIUM 131 MMOL/L (135-145)
[2021-08-31 22:59] LABS: CALCIUM 9.2 MG/DL (8.5-10.1)
[2021-08-31 23:01] LABS: GLUCOSE 164 MG/DL (70-105); TOTAL PROTEIN 7.7 GM/DL (6.4-8.2)
[2021-08-31 23:02] LABS: BILIRUBIN,TOTAL 2.4 MG/DL (0.1-1.0); CARBON DIOXIDE 16 MMOL/L (21-32)
[2021-08-31 23:04] LABS: ALKALINE PHOSPHATASE 70 U/L (40-136); CREATININE SERUM 1.16 MG/DL (0.60-1.30); GFR ESTIMATED 70
[2021-08-31 23:05] LABS: ANISOCYTOSIS SLIGHT; BAND NEUTROPHILS 3 %; BASOPHILS % (MANUAL) 0 %; BUN/CREATININE RATIO 10; EOSINOPHILS % (MANUAL) 0 %; LYMPHOCYTES % (MANUAL) 0 %; MONOCYTES % (MANUAL) 7 %; NEUTROPHILS % (MANUAL) 88 %; PLATELET CLUMPS OCCASIONAL; POLYCHROMASIA SLIGHT; REACTIVE LYMPHOCYTES 2 %
[2021-08-31 23:07] LABS: ALANINE AMINOTRANSFERASE 87 U/L (0-55); LIPASE 44 U/L (8-78)
[2021-08-31] MEDS ORDERED: ONDA4TAB11 PO (23:54)
[2021-09-01] MEDS ORDERED: NITROGLYCERIN 0.4 MG SL TABS BTL 25'S SL PRN
[2021-09-01] MEDS ORDERED: ASPIRIN 81 MG CHEW (CHILDREN'S ASA) PO ONE
[2021-09-01] MEDS ORDERED: fentaNYL INJ 100 MCG/2 ML AMP IVP ONE (00:30)
[2021-09-01 01:11] LABS: MAGNESIUM 1.7 MG/DL (1.6-2.4)
[2021-09-01 02:04] VITALS: BP 150/122
--- NOTE | 2021-09-01 07:36 | Diagnostic Imaging Report ---
PROCEDURE: CT head and CT cervical spine without contrast. TECHNIQUE: Multiple contiguous axial images were obtained through the brain and cervical spine without the use of intravenous contrast. Sagittal and coronal reformations through the cervical spine were then performed. Auto Exposure Controls were utilized during the CT exam to meet ALARA standards for radiation dose reduction. INDICATION: Trauma, vomiting. COMPARISON: 06/17/2021 and 06/12/2021 FINDINGS: Mild atrophy. No intracranial hemorrhage. No intracranial mass, mass effect, midline shift, herniation, hydrocephalus, or extra-axial fluid collection. No CT evidence of an acute ischemic infarction. The orbits are unremarkable. The visualized paranasal sinuses are clear. The calvarium and extra calvarial soft tissues are unremarkable. Minimal anterolisthesis of C7 on T1, stable from the prior examination. Mild reversal of normal cervical lordosis, stable from prior examination. No new anterolisthesis or retrolisthesis. Alignment of the atlantooccipital joint is well maintained. Chronic vertebral body height loss is identified, particularly involving C6, C7, and T1. No evidence of a new vertebral body compression deformity. No acute fracture or dislocation. No destructive osseous process. Significant disc space height loss is noted, particularly at C5/C6, C6/C7, and C7/T1. Multilevel facet joint degenerative changes and uncovertebral joint hypertrophy. There is resulting multilevel central canal and neural foraminal stenosis. This includes moderate central canal stenosis and severe left neural foraminal stenosis at C5/C6 and C6/C7. No apical pneumothorax. Mild vascular calcifications. IMPRESSION: No acute intracranial abnormality with mild atrophy present. No acute osseous abnormality within the cervical spine with moderate multilevel degenerative changes as above and reversal of the normal cervical lordosis. Agree with preliminary interpretation. Dictated by: Dictated on workstation # [id number]
--- NOTE | 2021-09-01 07:38 | Diagnostic Imaging Report ---
INDICATION: Chest pain COMPARISON: 07/18/2021 TECHNIQUE: Single frontal radiograph of the chest dated 09/01/2021 FINDINGS: The cardiac silhouette is within normal limits in size. No significant pulmonary vascular congestion. Minimal left basilar interstitial opacities have developed with partial obscuration of left hemidiaphragm. The right lung is clear. No significant pleural effusion. No pneumothorax. Postsurgical changes within the right shoulder. No acute osseous abnormality. IMPRESSION: Minimal left basilar atelectasis and/or pneumonitis. Otherwise, similar exam. Dictated by: Dictated on workstation # [id number]
== END 2021-09-01 02:04 | disposition home or self-care (01) ==
LOC: EDUNIT# 22:05 → ER 22:07
DX: S06.0X0A Concussion without loss of consciousness, initial encounter (principal); R07.9 Chest pain, unspecified; R77.8 Other specified abnormalities of plasma proteins; R29.6 Repeated falls; R40.2410 Glasgow coma scale score 13-15, unspecified time; Z79.01 Long term (current) use of anticoagulants; W22.8XXA Striking against or struck by other objects, initial encounter
CPT/HCPCS: 70450; 71045; 72125; 80053; 83690; 83735; 83874; 84484 ×2; 85007; 85027; 93005; 93041; 99284; G0480; 36415; 80320

== ENCOUNTER 2021-09-16 23:54 | Inpatient (IN) | payer MEDICARE ==
[~2021-09-16] VITALS: Ht 188 cm; Wt 96.0 kg
[~2021-09-16 23:54] MED LIST changes: +ONDA4TAB11 PO
[2021-09-17] MEDS ORDERED: ASPIRIN 81 MG CHEW (CHILDREN'S ASA) PO ONE (00:15)
--- NOTE | 2021-09-17 00:15 | ED Chest Pain ---
General Chief Complaint: Chest Wall Stated Complaint: SOB,CP,COUGH Source: patient Exam Limitations: no limitations History of Present Illness Date Seen by Provider: Sep 17, 2021 Time Seen by Provider: 00:00 Initial Comments Here by EMS with report of cough and chest pain. States he had chest pain that was central and nonradiating is 10 out of 10 sharp like he is being hit with a sledgehammer. States he had an episode of syncope tonight does not remember if he had nausea, vomiting, sweating or weakness. Admits to drinking 2 glasses of whiskey tonight because he was depressed about it. He was recently. The story is very familiar to his previous presentations. He does have long history of departing prior to completion of evaluation and leaving AGAINST MEDICAL ADVICE. Does complain of left arm numbness and left leg numbness but is not having any problem with movement. He is vaccinated for COVID-19. Timing/Duration: 1 hour Severity/Quality: severe, sharp Location: central Radiation: no radiation Activities at Onset: none Prior CP/Workup: cardiac cath, other (Multiple evaluations for chest pain) ASA po MEASUREMENT TECHNICIAN: No NTG SL MEASUREMENT TECHNICIAN: No Associated Symptoms: No abdominal pain, No back pain, No diaphoresis, No fever/chills, No nausea/vomiting, No shortness of breath; syncope Allergies and Home Medications Allergies Coded Allergies: Penicillins (Verified Allergy, Unknown, 10/17/13) morphine (Verified Allergy, Unknown, pt has received Hydromorphone in the past, 03/18/21) Patient Home Medication List Home Medication List Reviewed: Yes Amitriptyline HCl (Amitriptyline HCl) 50 Mg Tablet, 50 MG PO HS Prescribed by: SARAH MANRIQUEZ on 03/21/21 1133 Aspirin (Aspirin EC) 81 Mg Tablet., 81 MG PO DAILY, (Reported) Entered as Reported by: AURORA GUAMAN on 03/15/21 0959 Ondansetron (Ondansetron Odt) 4 Mg Tab.rapdis, 4 MG PO Q6H PRN for NAUSEA/VOMITING Prescribed by: IMMANUEL HADDAD on 08/31/21 7466 Pantoprazole Sodium (Pantoprazole Sodium) 40 Mg Tablet., 40 MG PO DAILY Prescribed by: SARAH MANRIQUEZ on 03/21/21 1133 Review of Systems Review of Systems Constitutional: No chills, No fever EENTM: No Symptoms Reported Respiratory: Cough; Denies Shortness of Air Cardiovascular: Denies Chest Pain; Syncope Gastrointestinal: No Symptoms Reported Genitourinary: No Symptoms Reported Musculoskeletal: No back pain, No muscle weakness Skin: No change in color, No lesions Psychiatric/Neurological: Numbness; Denies Weakness All Other Systems Reviewed Negative Unless Noted: Yes Past Qasupir-Edanwf-Iwzoqa Hx Patient Social History Tobacco Use?: Yes Tobacco type used: Cigarettes Substance use?: No Alcohol Use?: Yes Alcohol type: Hard Liquor Alcohol Frequency: Daily Pt feels they are or have been: No Immunizations Up To Date Tetanus Booster (TDap): Less than 5yrs PED Vaccines UTD: No First/Initial COVID19 Vaccinat: YES Second COVID19 Vaccination Loc: YES Third COVID19 Vaccination Date: YES Past Medical History Surgery/Hospitalization HX: orthopedic, heart cath, asthma, a-fib, pancreatitis, stroke, ch. back pain. Surgeries: Yes Cardiac, Orthopedic Respiratory: Yes (History of traumatic pneumothorax) Asthma Cardiac: Yes Atrial Fibrillation, Irregular Heartbeat Neurological: Yes (MILD RIGHT SIDE WEAKNESS) Stroke Genitourinary: No Gastrointestinal: Yes Pancreatitis, Gall Bladder Disease Musculoskeletal: Yes Back Injury, Chronic Back Pain, Fractures Endocrine: No HEENT: No Cancer: No Psychosocial: Yes (Alcohol dependence) Adverse Reaction/Blood Tranf: No Family Medical History Reviewed Nursing Family Hx History of - respiratory disease 03 FATHER (EMPHYSEMIA) GI Disease Physical Exam Vital Signs Vital Signs - First Documented 09/16/21 23:58 Temp 36.9 Pulse 94 Resp 18 B/P (MAP) 114/95 (101) Pulse Ox 98 O2 Delivery Room Air Capillary Refill : Height, Weight, BMI Height: 6'1.00" Weight: 211lbs. 0.5oz. 95.157873xo; 25.00 BMI Method:Stated General Appearance: No Apparent Distress, WD/WN HEENT: PERRL/EOMI, Pharynx Normal Neck: Non Tender, Supple Respiratory: Lungs Clear, Normal Breath Sounds Cardiovascular: Regular Rate, Rhythm, No Murmur Gastrointestinal: Non Tender, Soft Extremity: Normal Range of Motion, Non Tender Neurologic/Psychiatric: Alert, Oriented x3 Skin: Normal Color, Warm/Dry Critical Care Note Critical Care Start Time: 01:35 Stop Time: 02:22 Total Time (minutes) 35 Progress Critical care time weeks with separately billable procedures. See progress note for details. Plan concern for evaluation, management and recheck for atrial fibrillation with rapid ventricular response. Progress/Results/Core Measures Results/Orders Lab Results Laboratory Tests Test 09/17/21 00:25 09/17/21 00:50 Range/Units White Blood Count 4.4 4.3-11.0 10^3/uL Red Blood Count 4.37 4.30-5.52 10^6/uL Hemoglobin 15.4 13.3-17.7 g/dL Hematocrit 44 40-54 % Mean Corpuscular Volume 100 H 80-99 fL Mean Corpuscular Hemoglobin 35 H 25-34 pg Mean Corpuscular Hemoglobin Concent 35 32-36 g/dL Red Cell Distribution Width 14.1 10.0-14.5 % Platelet Count 113 L 130-400 10^3/uL Mean Platelet Volume 11.7 9.0-12.2 fL Immature Granulocyte % (Auto) 1 % Neutrophils (%) (Auto) 68 42-75 % Lymphocytes (%) (Auto) 15 12-44 % Monocytes (%) (Auto) 13 H 0-12 % Eosinophils (%) (Auto) 1 0-10 % Basophils (%) (Auto) 2 0-10 % Neutrophils # (Auto) 3.0 1.8-7.8 10^3/uL Lymphocytes # (Auto) 0.7 L 1.0-4.0 10^3/uL Monocytes # (Auto) 0.6 0.0-1.0 10^3/uL Eosinophils # (Auto) 0.0 0.0-0.3 10^3/uL Basophils # (Auto) 0.1 0.0-0.1 10^3/uL Immature Granulocyte # (Auto) 0.0 0.0-0.1 10^3/uL Prothrombin Time 13.5 12.2-14.7 SEC INR Comment 1.0 0.8-1.4 Activated Partial Thromboplast Time 25 24-35 SEC Sodium Level 134 L 135-145 MMOL/L Potassium Level 2.8 L 3.6-5.0 MMOL/L Chloride Level 95 L 98-107 MMOL/L Carbon Dioxide Level 21 21-32 MMOL/L Anion Gap 18 H 5-14 MMOL/L Blood Urea Nitrogen 4 L 7-18 MG/DL Creatinine 0.75 0.60-1.30 MG/DL Estimat Glomerular Filtration Rate 100 BUN/Creatinine Ratio 5 Glucose Level 123 H 70-105 MG/DL Calcium Level 8.1 L 8.5-10.1 MG/DL Corrected Calcium 8.7 8.5-10.1 MG/DL Magnesium Level 1.3 L 1.6-2.4 MG/DL Total Bilirubin 0.6 0.1-1.0 MG/DL Aspartate Amino Transf (AST/SGOT) 122 H 5-34 U/L Alanine Aminotransferase (ALT/SGPT) 75 H 0-55 U/L Alkaline Phosphatase 66 40-136 U/L Myoglobin 33.9 10.0-92.0 NG/ML Troponin I < 0.028 <0.028 NG/ML Total Protein 5.7 L 6.4-8.2 GM/DL Albumin 3.3 3.2-4.5 GM/DL Serum Alcohol 155 H <10 MG/DL My Orders Orders - JUAN PABLO MILLARD MD Cbc With Automated Diff (09/17/21 00:05) Magnesium (09/17/21 00:05) Chest 1 View, Ap/Pa Only (09/17/21 00:05) Ekg Tracing (09/17/21 00:05) Comprehensive Metabolic Panel (09/17/21 00:05) Myoglobin Serum (09/17/21 00:05) Protime With Inr (09/17/21 00:05) Partial Thromboplastin Time (09/17/21 00:05) O2 (09/17/21 00:05) Monitor-Rhythm Ecg Trace Only (09/17/21 00:05) Lipid Panel (09/18/21 06:00) Ed Iv/Invasive Line Start (09/17/21 00:05) Troponin I [place] (09/17/21 00:05) Aspirin Chewable Tablet (Baby Aspirin Ch (09/17/21 00:15) Alcohol (09/17/21 00:07) Potassium Chloride (Tablet) (K Dur Table (09/17/21 01:30) Lactated Ringers (Lr 1000 Ml Iv Solution (09/17/21 01:21) Lactated Ringers (Lr 1000 Ml Iv Solution (09/17/21 01:49) Diltiazem Injection (Cardizem Injection) (09/17/21 02:00) Diltiazem Drip Pre-Mix (Cardizem Drip Pr (09/17/21 02:00) Enoxaparin Injection (Lovenox Injection) (09/17/21 02:00) Ekg Tracing (09/17/21 02:06) Medications Given in ED Current Medications Medications Dose Ordered Sig/Yoseph Route Start Time Stop Time Status Last Admin Dose Admin Aspirin 324 mg ONCE ONCE PO 09/17/21 00:15 09/17/21 00:16 DC 09/17/21 00:18 324 MG Diltiazem HCl 10 mg ONCE ONCE IVP 09/17/21 02:00 09/17/21 02:01 DC 09/17/21 01:55 10 MG Enoxaparin Sodium 100 mg ONCE ONCE SC 09/17/21 02:00 09/17/21 02:01 DC 09/17/21 02:04 100 MG Potassium Chloride 40 meq ONCE ONCE PO 09/17/21 01:30 09/17/21 01:31 DC 09/17/21 01:26 40 MEQ Vital Signs/I&O 09/16/21 23:58 Temp 36.9 Pulse 94 Resp 18 B/P (MAP) 114/95 (101) Pulse Ox 98 O2 Delivery Room Air Progress Progress Note : Progress Note Seen and evaluated. Patient has long history of leaving AGAINST MEDICAL ADVICE. Did review previous visit which was a few weeks ago as well as heart cath done on 05/29/2021. That heart cath did not show any significant findings at that time. We will do chest pain work-up and give aspirin 324 mg p.o. now. Monitor patient. 0145: Patient now in A. fib with RVR. EKG confirms. Cardizem 10 mg I V bolus and initiated at 5 mg an hour ordered and will titrate. Patient is hypotensive. LR 1 L bolus has been ordered as well as potassium 40 mEq p.o. and we will do second liter of LR in second IV site as well. 0157: I did discuss the case with Dr. Irwin and he accepts patient in consult. We did discuss Lovenox and we will initiate at 1 mg/kg 100 mg currently. 0203: I did discuss the case with Dr. Gao and she accepts patient for admission, inpatient status. She is asked that I write orders, which I will do. We will initiate alcohol withdrawal protocol as he is a long-term drinker as well. 0222: Cardizem drip running and patient has converted to sinus rhythm and the rate of 90s with blood pressure 100 systolic. Patient to go to ICU. Initial ECG Impression Date: Sep 17, 2021 Initial ECG Impression Time: 00:02 Initial ECG Rate: 100 Initial ECG Rhythm: S.Tach Comment Sinus tachycardia with normal axis. Incomplete right bundle branch block. Similar to previous of 08/27/2021. No evidence of ST elevation MS. Interpreted by me. EKG : EKG Time: 01:39 Rate: 149 ECG Impression: Atrial Fibrillation w/RVR Comment Atrial fibrillation with rapid ventricular rate and leftward axis. No evidence of ST elevation MS. Change from previous done earlier this morning. Interpreted by me. Diagnostic Imaging Diagonstic Imaging: Xray Plain Films/CT/US/NM/MRI: chest Comments Right lower lobe nodule but otherwise no acute findings. Nodule appears similar to previous. Departure Communication (Admissions) Time/Spoke to Admitting Phy: 02:03 Time/Spoke to Consulting Phy: 01:57 Impression Primary Impression: Atrial fibrillation with rapid ventricular response Additional Impressions: Chest pain Qualified Codes: R07.9 - Chest pain, unspecified Cough Disposition: ADMITTED INPATIENT Condition: Stable Admissions Decision to Admit Reason: Admit from ER (General) Decision to Admit/Date: Sep 17, 2021 Time/Decision to Admit Time: 02:03 Departure-Patient Inst. Referrals: PATRICE KENDALL APRN (PCP/Family) Primary Care Physician JUAN PABLO MILLARD MD Sep 17, 2021 00:15
[2021-09-17 00:36] LABS: BASOPHILS # (AUTO) 0.1 10^3/uL (0.0-0.1); BASOPHILS % (AUTO) 2 % (0-10); EOSINOPHILS % (AUTO) 1 % (0-10); HEMATOCRIT 44 % (40-54); HEMOGLOBIN 15.4 g/dL (13.3-17.7); LYMPHOCYTES # (AUTO) 0.7 10^3/uL (1.0-4.0); LYMPHOCYTES % (AUTO) 15 % (12-44); MEAN CORPUSCULAR HEMOGLOBIN 35 pg (25-34); MEAN CORPUSCULAR HGB CONC 35 g/dL (32-36); MEAN CORPUSCULAR VOLUME 100 fL (80-99); MEAN PLATELET VOLUME 11.7 fL (9.0-12.2); MONOCYTES # (AUTO) 0.6 10^3/uL (0.0-1.0); MONOCYTES % (AUTO) 13 % (0-12); NEUTROPHILS % (AUTO) 68 % (42-75); PLATELET COUNT 113 10^3/uL (130-400); WHITE BLOOD COUNT 4.4 10^3/uL (4.3-11.0)
[2021-09-17 00:51] LABS: PROTHROMBIN TIME PATIENT 13.5 SEC (12.2-14.7)
[2021-09-17 01:07] LABS: ALBUMIN 3.3 GM/DL (3.2-4.5)
[2021-09-17 01:08] LABS: POTASSIUM 2.8 MMOL/L (3.6-5.0)
[2021-09-17 01:09] LABS: CALCIUM 8.1 MG/DL (8.5-10.1)
[2021-09-17 01:10] LABS: TOTAL PROTEIN 5.7 GM/DL (6.4-8.2)
[2021-09-17 01:12] LABS: BILIRUBIN,TOTAL 0.6 MG/DL (0.1-1.0)
[2021-09-17 01:14] LABS: CREATININE SERUM 0.75 MG/DL (0.60-1.30)
[2021-09-17 01:16] LABS: MAGNESIUM 1.3 MG/DL (1.6-2.4)
[2021-09-17] MEDS ORDERED: LACTATED RINGERS 1,000 ML IV STA ×2 (01:21→01:49)
[2021-09-17] MEDS ORDERED: KCL 20 MEQ TAB (K-DUR) PO ONE (01:30)
[2021-09-17] MEDS: dilTIAZem DRIP PRE-MIX 125 ML IV SCH ×2 (01:55→02:59)
[2021-09-17] MEDS ORDERED: ENOXAPARIN 100 MG/1 ML (LOVENOX) SYR SC ONE (02:00)
[2021-09-17] MEDS ORDERED: LACTATED RINGERS 1,000 ML IV ONE (02:47)
[2021-09-17 03:34] VITALS: BP 114/95
[2021-09-17] MEDS ORDERED: ACETAMINOPHEN 325 MG TABLET PO ONE (03:45)
[2021-09-17] MEDS ORDERED: ACETAMINOPHEN 325 MG TABLET ONE (03:49)
[2021-09-17] MEDS ORDERED: D5 1/2 NS 1000 ML IV SOLUTION 1,000 ML IV PRN (04:00)
[2021-09-17] MEDS ORDERED: ANTACID SUSP 30 ML UDC (MYLANTA) PO PRN (04:00)
[2021-09-17] MEDS ORDERED: RT-ALBUTEROL SULF 2.5 MG/3 ML PRE-MIX VIAL INH PRN (04:00)
[2021-09-17] MEDS ORDERED: SENNA W/DOCUSATE (SENOKOT S) TABLET PO PRN (04:00)
[2021-09-17] MEDS ORDERED: 1/2 NS IV SOLUTION 1,000 ML IV PRN (04:00)
[2021-09-17] MEDS ORDERED: ONDANSETRON 4 MG (ZOFRAN) ORAL DISSOLVE TAB SL PRN (04:00)
[2021-09-17] MEDS ORDERED: LORazepam INJ 2 MG/ML (ATIVAN) VIAL IM/IV PRN (04:00)
[2021-09-17] MEDS: LACTATED RINGERS 1,000 ML IV SCH ×3 (04:00→18:28)
[2021-09-17 05:05] LABS: BASOPHILS # (AUTO) 0.1 10^3/uL (0.0-0.1); BASOPHILS % (AUTO) 2 % (0-10); EOSINOPHILS # (AUTO) 0.1 10^3/uL (0.0-0.3); EOSINOPHILS % (AUTO) 2 % (0-10); HEMATOCRIT 37 % (40-54); HEMOGLOBIN 12.9 g/dL (13.3-17.7); LYMPHOCYTES # (AUTO) 0.7 10^3/uL (1.0-4.0); LYMPHOCYTES % (AUTO) 19 % (12-44); MEAN CORPUSCULAR HEMOGLOBIN 35 pg (25-34); MEAN CORPUSCULAR HGB CONC 35 g/dL (32-36); MEAN CORPUSCULAR VOLUME 101 fL (80-99); MONOCYTES # (AUTO) 0.4 10^3/uL (0.0-1.0); MONOCYTES % (AUTO) 12 % (0-12); NEUTROPHILS # (AUTO) 2.3 10^3/uL (1.8-7.8); NEUTROPHILS % (AUTO) 64 % (42-75); PLATELET COUNT 92 10^3/uL (130-400); WHITE BLOOD COUNT 3.6 10^3/uL (4.3-11.0)
[2021-09-17 05:16] LABS: INR 1.1 (0.8-1.4); PROTHROMBIN TIME PATIENT 14.6 SEC (12.2-14.7)
[2021-09-17] MEDS: ONDANSETRON 4 MG/2 ML (SDV) Z0FRAN IV PRN ×2 (05:25→09:51)
[2021-09-17 05:26] LABS: ALBUMIN 2.9 GM/DL (3.2-4.5); BILIRUBIN,TOTAL 0.6 MG/DL (0.1-1.0); CALCIUM 7.5 MG/DL (8.5-10.1); CREATININE SERUM 0.71 MG/DL (0.60-1.30); MAGNESIUM 1.2 MG/DL (1.6-2.4); PHOSPHORUS 3.2 MG/DL (2.3-4.7); POTASSIUM 3.2 MMOL/L (3.6-5.0); TOTAL PROTEIN 5.2 GM/DL (6.4-8.2)
--- NOTE | 2021-09-17 06:14 | Diagnostic Imaging Report ---
EXAMINATION: Chest 1 view HISTORY: Chest pain COMPARISON: 09/01/2021 FINDINGS: Heart size and pulmonary vasculature are normal. There are mild interstitial opacities within the lower lungs. No pleural effusion or pneumothorax. The osseous structures are intact. IMPRESSION: 1. Mild interstitial opacities within the lower lungs which can be seen with atelectasis, pulmonary edema, or atypical infection. Dictated by: Dictated on workstation # [id number]
[2021-09-17] MEDS ORDERED: MAGNESIUM 2 GM/50 ML IVPB 50 ML IV ONE (06:30)
[2021-09-17] MEDS: POTASSIUM CL 10MEQ/50ML IVPB 50 ML IV SCH ×4 (06:58→10:02)
[2021-09-17] MEDS: MULTIVIT W/MINERALS TAB (THERAGRAN M) PO SCH (07:01)
[2021-09-17] MEDS: THIAMINE 100 MG (VITAMIN B-1) TAB PO SCH (07:02)
[2021-09-17] MEDS ORDERED: MAGNESIUM 1 GM/100 ML IVPB 400 ML IV ONE (07:08)
[2021-09-17] MEDS: MAGNESIUM 1 GM/100 ML IVPB 100 ML IV SCH ×4 (07:15→10:02)
--- NOTE | 2021-09-17 07:36 | History & Physical-Hospitalist ---
History of Present Illness HPI/Chief Complaint Chief complaint: Atrial fibrillation with rapid response History of present illness: This is a 76-year-old white male alcoholic who presented to the ER with palpitations chest pain found to have atrial fibrillation with RVR. Patient was placed on a Cardizem drip and now on amiodarone drip. Dr. Irwin appreciated. Patient is not willing to answer any my questions because he said he did not sleep at all last night. Source: patient Exam Limitations: other (Patient unwilling to provide any details) Date Seen 09/17/21 Time Seen by a Provider: 11:00 Attending Physician Abby Gao Jessica J Aprn Referring Physician Date of Admission Sep 17, 2021 at 02:06 Home Medications & Allergies Home Medications Reviewed patient Home Medication Reconciliation performed by pharmacy medication reconciliations nuclear chemistry technician and/or nursing. Patients Allergies have been reviewed. Allergies Allergies Coded Allergies Penicillins (Verified Allergy, Unknown, 10/17/13) morphine (Verified Allergy, Unknown, pt has received Hydromorphone in the past, 03/18/21) Past Asixjty-Wdougp-Tdmgyl Hx Patient Social History Marrital Status: single Employed/Student: unemployed Tobacco Use?: Yes Tobacco type used: Cigarettes Smoking Status: Current Everyday Smoker Substance use?: No Alcohol Use?: Yes Alcohol type: Hard Liquor Alcohol Frequency: Daily Pt feels they are or have been: No Immunizations Up To Date First/Initial COVID19 Vaccinat: YES Second COVID19 Vaccination Loc: YES Tetanus Booster (TDap): Unknown Hepatitis A: Yes Hepatitis B: Yes PED Vaccines UTD: No Date of Pneumonia Vaccine: Jan [birth year], 1970 Current Status Advance Directives: No Communicates: Verbally Primary Language: Armenian Preferred Spoken Language: Armenian Is interpretation needed?: No Implanted or Applied Medical D: None Past Medical History Surgeries: Cardiac, Orthopedic Asthma Atrial Fibrillation, Irregular Heartbeat Stroke Pancreatitis, Gall Bladder Disease Back Injury, Chronic Back Pain, Fractures Adverse Reaction/Blood Tranf: No Family Medical History Reviewed Nursing Family Hx History of - respiratory disease 03 FATHER (EMPHYSEMIA) GI Disease Review of Systems ROS-Unable to Obtain: Not forthcoming Constitutional: see HPI Physical Exam Physical Exam Vital Signs Vital Signs - First Documented 09/16/21 09/17/21 09/17/21 23:58 03:34 04:23 Temp 36.9 Pulse 94 Resp 18 B/P (MAP) 114/95 (101) Pulse Ox 98 O2 Delivery Room Air O2 Flow Rate 2.00 FiO2 21 Capillary Refill : Less Than 3 Seconds Height, Weight, BMI Height: 6'1.00" Weight: 211lbs. 0.5oz. 95.120040ca; 26.59 BMI Method:Stated General Appearance: No Apparent Distress, Chronically ill Eyes: Right Eye Normal Inspection, Right Eye PERRL HEENT: PERRL/EOMI, Normal ENT Inspection, Pharynx Normal, Moist Mucous Membranes Neck: Full Range of Motion, Normal Inspection, Non Tender Respiratory: Chest Non Tender, Lungs Clear, Normal Breath Sounds, No Accessory Muscle Use, No Respiratory Distress Cardiovascular: No Edema, No Gallop, No JVD, No Murmur, Normal Peripheral Pulses, Irregularly Irregular, Tachycardia Gastrointestinal: Normal Bowel Sounds, No Organomegaly, No Pulsatile Mass, Non Tender, Soft Back: Normal Inspection, No CVA Tenderness, No Vertebral Tenderness Extremity: Normal Capillary Refill, Normal Inspection, Normal Range of Motion, Non Tender, No Calf Tenderness, No Pedal Edema Neurologic/Psychiatric: Alert, Oriented x3, No Motor/Sensory Deficits, Normal Mood/Affect Skin: Normal Color, Warm/Dry Lymphatic: No Adenopathy Results Results/Procedures Labs Laboratory Tests 09/17/21 00:25 09/17/21 00:50 09/17/21 04:50 09/18/21 04:40 Patient resulted labs reviewed. Assessment/Plan Admission Diagnosis Assessment: Atrial fibrillation with rapid response Alcoholism Smoker Chronic back pain Plan: Cardizem and amiodarone drip Appreciate Dr. Irwin Alcohol withdrawal protocol Admission Status: Inpatient Order (span 2 midnights) Reason for Inpatient Admission: A. fib with RVR with alcohol withdrawal Diagnosis/Problems Diagnosis/Problems (1) Atrial fibrillation with rapid ventricular response Status: Acute (2) Alcohol dependence Status: Acute (3) Chest pain Status: Acute (4) Cardiomyopathy (5) ALD (alcoholic liver disease) Status: Chronic (6) History of cerebrovascular accident Clinical Quality Measures AMI/AHF: ASA po Prior to arrival: ABBY Jackman DO Sep 17, 2021 07:36
[2021-09-17] MEDS ORDERED: guaiFENesin/CODEINE (ROBITUSSIN AC) 10ML UDC PO PRN (08:00)
[2021-09-17] MEDS: FOLIC ACID 1 MG TAB PO SCH (08:39)
[2021-09-17] MEDS: BENZONATATE 100 MG (TESSALON) CAPSULE PO SCH ×3 (08:40→20:01)
[2021-09-17] MEDS: MAGNESIUM OXIDE (MAG-OX)400 MG TAB PO SCH ×2 (08:40→20:01)
--- NOTE | 2021-09-17 08:44 | Consultation-Cardiology ---
HPI-Cardiology Cardiology Consultation Date of Consultation 09/17/21 Date of Admission Time Seen by Provider: 08:38 Indication: Atrial fibrillation HPI 66-year-old gentleman with history of recurrent syncope. Had syncopal episode in June, admitted with elevated troponin and underwent cardiac catheterization. Reported that he had a stress test prior to that at [facility] after syncopal episode. Had another syncopal episode yesterday with severe chest pain, came into the emergency room, work-up was negative then he went to atrial fibrillation with rapid ventricular response. Patient was started on Cardizem drip. He reported improvement of the chest pain, has been having cough. No shortness of breath. Complains of foggy memory. No focal def icit otherwise. He is an active smoker. Home Medications & Allergies Allergies: Coded Allergies: Penicillins (Verified Allergy, Unknown, 10/17/13) morphine (Verified Allergy, Unknown, pt has received Hydromorphone in the past, 03/18/21) Home Medication List Reviewed: Yes ZTC-Ndnurj-Uddhkw Hx Patient Social History Marital Status: single Smoking Status: Current Everyday Smoker Have you traveled recently?: No Alcohol Use?: Yes Immunizations Up To Date Tetanus Booster (TDap): Less than 5yrs Date of Pneumonia Vaccine: Jan 06, 1971 Past Medical History Discussed below Family Medical History Significant Family History: GI Disease Family Medical Hx Noncontributory Family History: History of - respiratory disease 03 FATHER (EMPHYSEMIA) Review of Systems-General Review of Systems Constitutional: No chills, No fever; malaise EENTM: see HPI, no symptoms reported Respiratory: see HPI, cough, dyspnea on exertion; No hemoptysis, No orthopnea, No phlegm, No short of breath, No stridor, No wheezing, No other Cardiovascular: see HPI, chest pain; No edema, No Hx of Intervention, No pal pitations; syncope; No vascular heart diseas, No other Gastrointestinal: no symptoms reported, see HPI Genitourinary: no symptoms reported, see HPI Musculoskeletal: see HPI; No back pain, No muscle weakness Skin: see HPI; No change in color, No lesions Psychiatric/Neurological: See HPI, Numbness; Denies Weakness All Other Systems Reviewed Negative Unless Noted: Yes Reviewed Test Results Reviewed Test Results Lab Laboratory Tests Test 09/17/21 00:25 09/17/21 00:50 09/17/21 04:50 Range/Units White Blood Count 4.4 3.6 L 4.3-11.0 10^3/uL Red Blood Count 4.37 3.68 L 4.30-5.52 10^6/uL Hemoglobin 15.4 12.9 L 13.3-17.7 g/dL Hematocrit 44 37 L 40-54 % Mean Corpuscular Volume 100 H 101 H 80-99 fL Mean Corpuscular Hemoglobin 35 H 35 H 25-34 pg Mean Corpuscular Hemoglobin Concent 35 35 32-36 g/dL Red Cell Distribution Width 14.1 13.8 10.0-14.5 % Platelet Count 113 L 92 L 130-400 10^3/uL Mean Platelet Volume 11.7 12.0 9.0-12.2 fL Immature Granulocyte % (Auto) 1 1 % Neutrophils (%) (Auto) 68 64 42-75 % Lymphocytes (%) (Auto) 15 19 12-44 % Monocytes (%) (Auto) 13 H 12 0-12 % Eosinophils (%) (Auto) 1 2 0-10 % Basophils (%) (Auto) 2 2 0-10 % Neutrophils # (Auto) 3.0 2.3 1.8-7.8 10^3/uL Lymphocytes # (Auto) 0.7 L 0.7 L 1.0-4.0 10^3/uL Monocytes # (Auto) 0.6 0.4 0.0-1.0 10^3/uL Eosinophils # (Auto) 0.0 0.1 0.0-0.3 10^3/uL Basophils # (Auto) 0.1 0.1 0.0-0.1 10^3/uL Immature Granulocyte # (Auto) 0.0 0.1 0.0-0.1 10^3/uL Prothrombin Time 13.5 14.6 12.2-14.7 SEC INR Comment 1.0 1.1 0.8-1.4 Activated Partial Thromboplast Time 25 38 H 24-35 SEC Sodium Level 134 L 136 135-145 MMOL/L Potassium Level 2.8 L 3.2 L 3.6-5.0 MMOL/L Chloride Level 95 L 98 98-107 MMOL/L Carbon Dioxide Level 21 21 21-32 MMOL/L Anion Gap 18 H 17 H 5-14 MMOL/L Blood Urea Nitrogen 4 L 4 L 7-18 MG/DL Creatinine 0.75 0.71 0.60-1.30 MG/DL Estimat Glomerular Filtration Rate 100 102 BUN/Creatinine Ratio 5 6 Glucose Level 123 H 97 70-105 MG/DL Calcium Level 8.1 L 7.5 L 8.5-10.1 MG/DL Corrected Calcium 8.7 8.4 L 8.5-10.1 MG/DL Magnesium Level 1.3 L 1.2 L 1.6-2.4 MG/DL Total Bilirubin 0.6 0.6 0.1-1.0 MG/DL Aspartate Amino Transf (AST/SGOT) 122 H 115 H 5-34 U/L Alanine Aminotransferase (ALT/SGPT) 75 H 63 H 0-55 U/L Alkaline Phosphatase 66 63 40-136 U/L Myoglobin 33.9 10.0-92.0 NG/ML Troponin I < 0.028 <0.028 NG/ML Total Protein 5.7 L 5.2 L 6.4-8.2 GM/DL Albumin 3.3 2.9 L 3.2-4.5 GM/DL Serum Alcohol 155 H 44 H <10 MG/DL Percent Immature Platelet Fraction 10.9 H 0.0-7.6 % Phosphorus Level 3.2 2.3-4.7 MG/DL Physical Exam Physical Exam Vital Signs Vital Signs - First Documented 09/16/21 09/17/21 09/17/21 23:58 03:34 04:23 Temp 36.9 Pulse 94 Resp 18 B/P (MAP) 114/95 (101) Pulse Ox 98 O2 Delivery Room Air O2 Flow Rate 2.00 FiO2 21 Capillary Refill : Less Than 3 Seconds Height, Weight, BMI Height: 6'1.00" Weight: 211lbs. 0.5oz. 95.707687eg; 26.59 BMI Method:Stated General Appearance: No Apparent Distress, WD/WN Eyes: Bilateral Eye Normal Inspection, Bilateral Eye PERRL, Bilateral Eye EOMI HEENT: PERRL/EOMI, Pharynx Normal Neck: Non Tender, Supple Respiratory: Lungs Clear, Normal Breath Sounds Cardiovascular: Regular Rate, Rhythm, No Murmur Gastrointestinal: Non Tender, Soft Back: Normal Inspection, No CVA Tenderness, No Vertebral Tenderness Extremity: Normal Range of Motion, Non Tender Neurologic/Psychiatric: Alert, Oriented x3 Skin: Normal Color, Warm/Dry Lymphatic: No Adenopathy A/P-Cardiology Admission Diagnosis Syncope Chest pain Congestive heart failure, chronic compensated left ventricular systolic dysfunction Paroxysmal atrial fibrillation Assessment/Plan Syncope, multiple episodes over the past few months. Associated with severe chest pain. Unknown etiology, could be vasovagal or secondary to arrhythmia. Underlying malignant arrhythmia such as ventricular tachycardia or fibrillation cannot be excluded. Currently back in sinus rhythm with frequent PVCs. Patient has been maintained on Coreg, metoprolol and lisinopril. I am stopping lisinopril due to recurrent cough and stopping Coreg. I will restart metoprolol at low-dose I will start him on amiodarone bolus and a drip and monitor his liver enzymes closely. Severe chest pain, recurrent episode of chest pain associated with syncope, underwent cardiac catheterization by Dr. Pink in June 2021 reporting mild coronary artery disease nonobstructive disease. Congestive heart failure, chronic compensated left ventricular systolic dysfunction, reported ejection fraction 44%. 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 I will start him on amiodarone and Eliquis. [id number] score of 2, starting on Eliquis Persistent cough, could be secondary to early pneumonia, patient has been on lisinopril as an outpatient which will be discontinued at this point and starting losartan at a low dose Thoracic aortic aneurysm, he had an aortic root measuring 4 cm on an echocardiogram at an outside hospital. Continue to monitor closely Hypertension, monitor blood pressure after the medication changes Elevated liver enzymes, could be secondary to alcoholic hepatitis. Dementia, patient has significant memory loss. Tobaccoism, educated on smoking cessation Alcoholism. Started on thiamine Gastroesophageal reflux disease. Clinical Quality Measures AMI/AHF: ASA po Prior to arrival: AVRIL Lezama MD Sep 17, 2021 08:44
[2021-09-17] MEDS ORDERED: AMIODARONE FOR BOLUS 150 MG in D5W 100 ML IVPB 100 ML IV NR (09:30)
[2021-09-17] MEDS ORDERED: AMIODARONE FOR BOLUS 150 MG in NS (IVPB) 100 ML IV NR (09:30)
[2021-09-17 09:52] VITALS: BP 113/99
[2021-09-17] MEDS: LORazepam INJ 2 MG/ML (ATIVAN) VIAL IV PRN ×3 (09:52→20:02)
[2021-09-17] MEDS: AMIODARONE INJECTION 450 MG in D5W IV SOLUTION (EXCEL) 250 ML IV SCH ×2 (09:53→18:30)
[2021-09-17] MEDS: APIXABAN 5 MG (ELIQUIS) TABLET PO SCH ×2 (10:09→20:01)
[2021-09-17] MEDS: PANTOPRAZOLE 40 MG (PROTONIX) TAB PO SCH (10:09)
[2021-09-17] MEDS: THIAMINE INJECTION 100 MG, FOLIC ACID INJECTION 1 MG, VITAMIN MULTI INJECTION 10 ML, MA... IV SCH ×5 (10:11)
[2021-09-17] MEDS ORDERED: PROMETHAZINE INJ 25 MG/ML (PHENERGAN) AMP IM PRN (10:30)
--- NOTE | 2021-09-17 12:21 | Tele-ICU Progress Note ---
Subjective Date Seen by a Provider: Sep 17, 2021 Time Seen by a Provider: 10:45 Subjective/Events-last exam This virtual visit was conducted using real time audio/video. Thank you for asking us to see this patient foraf/rvr, EtOH dependence. Recent events: Swiched to Amiod PMH: COPD, COVID SH: smoking history Y FH: Non-contributory ROS: as in HPI PE: Appears comfortable. VSS. O2 sat 94 % on 2 lpm NCon HEENT: No obvious masses, adenopathy or JVD. Chest: clear to auscultation. CV: Irreg afib. S1 S2 No murmur or added sounds. Abd: Non-tender. Bowel sounds Y. : Unremarkable. Lopez N. MAINTENANCE MAN/psychiatric: Grossly intact. No obvious focal findings. Extremities: edema. Capillary refill < 3 seconds. Skin: unremarkable. Results: Elevated BG121. Decreased WCC 3.6. Available chart/ vitals / labs / images reviewed. Video assessment done using teleICU camera, rest of exam as per RN. A/P: Respiratory insufficiency: Continue present management with PRN BDs Monitor for increasing oxygenation needs and/or need for intubation. Critical Care: critically ill patient. Cont.anti-arrhy., Galina. CIWA protocol, Epifanio. Discussed with RN Mahesh. Asked RN to reach out to eICU if any questions or concerns later. Time spent with patient/coordination of care with other health professionals (mins): 28 Sepsis Event Evaluation Height, Weight, BMI Height: 6'1.00" Weight: 211lbs. 0.5oz. [id number]; 26.59 BMI Method:Stated Exam Exam Patient acknowledged, consented, and participated in this virtual visit which was conducted using real time audio/video Vital Signs Date Time Temp Pulse Resp B/P (MAP) Pulse Ox O2 Delivery O2 Flow Rate FiO2 09/17/21 12:05 100 Room Air 09/17/21 11:52 36.5 09/17/21 11:00 99 31 102/74 97 Nasal Cannula 2.00 09/17/21 10:00 92 31 115/77 97 Nasal Cannula 2.00 09/17/21 09:52 96 113/99 09/17/21 09:00 96 13 113/99 98 Nasal Cannula 2.00 09/17/21 08:40 100 Nasal Cannula 2.00 09/17/21 08:00 100 Room Air 09/17/21 08:00 37.0 09/17/21 08:00 87 26 113/79 98 Nasal Cannula 2.00 09/17/21 07:00 84 09/17/21 07:00 76 23 106/66 96 Nasal Cannula 2.00 09/17/21 06:00 82 23 106/63 97 Nasal Cannula 2.00 09/17/21 04:30 98 14 97/70 96 Nasal Cannula 2.00 09/17/21 04:23 Nasal Cannula 2.00 09/17/21 04:00 96 Room Air 09/17/21 04:00 37.4 09/17/21 04:00 98 20 101/72 97 Room Air 09/17/21 03:34 36.9 94 98 21 09/17/21 03:30 93 25 87/56 94 Room Air 09/17/21 03:15 96 26 98/69 95 Room Air 09/17/21 03:00 100 30 81/66 97 Room Air 09/17/21 02:53 101 09/17/21 02:40 37.2 96 20 97/74 95 Room Air 09/17/21 02:40 96 Room Air 09/17/21 02:31 36.5 95 18 98/84 97 Room Air 09/16/21 23:58 36.9 94 18 114/95 (101) 98 Room Air I & O 09/17/21 07:00 Intake Total 2900 ml Balance 2900 ml Height & Weight Height: 6'1.00" Weight: 211lbs. 0.5oz. 95.323278gr; 26.59 BMI Method:Stated General Appearance: No Apparent Distress, WD/WN HEENT: PERRL/EOMI, Pharynx Normal Neck: Non Tender, Supple Respiratory: Lungs Clear, Normal Breath Sounds Cardiovascular: Regular Rate, Rhythm, No Murmur Capillary Refill: Less Than 3 Seconds Extremity: Normal Range of Motion, Non Tender Neurologic/Psychiatric: Alert, Oriented x3 Skin: Normal Color, Warm/Dry Lymphatic: No Adenopathy Results Lab Laboratory Tests 09/17/21 00:25 09/17/21 00:50 09/17/21 04:50 Assessment/Plan Assessment/Plan See free text. Critical Care: Critically Ill Patient NICK CRUZ MD Sep 17, 2021 12:21
[2021-09-17] MEDS ORDERED: ENOXAPARIN 100 MG/1 ML (LOVENOX) SYR SC SCH (14:00)
[2021-09-18] MEDS: LACTATED RINGERS 1,000 ML IV SCH (03:59)
[2021-09-18 04:45] LABS: EOSINOPHILS # (AUTO) 0.1 10^3/uL (0.0-0.3)
[2021-09-18 04:47] LABS: BASOPHILS % (AUTO) 1 % (0-10); EOSINOPHILS % (AUTO) 2 % (0-10); HEMATOCRIT 40 % (40-54); HEMOGLOBIN 13.4 g/dL (13.3-17.7); LYMPHOCYTES # (AUTO) 0.9 10^3/uL (1.0-4.0); LYMPHOCYTES % (AUTO) 21 % (12-44); MEAN CORPUSCULAR HEMOGLOBIN 35 pg (25-34); MEAN CORPUSCULAR HGB CONC 34 g/dL (32-36); MEAN CORPUSCULAR VOLUME 104 fL (80-99); MEAN PLATELET VOLUME 12.2 fL (9.0-12.2); MONOCYTES # (AUTO) 0.5 10^3/uL (0.0-1.0); MONOCYTES % (AUTO) 11 % (0-12); NEUTROPHILS # (AUTO) 2.6 10^3/uL (1.8-7.8); NEUTROPHILS % (AUTO) 65 % (42-75); PLATELET COUNT 81 10^3/uL (130-400); WHITE BLOOD COUNT 4.1 10^3/uL (4.3-11.0)
[2021-09-18 04:53] LABS: POTASSIUM 3.4 MMOL/L (3.6-5.0)
[2021-09-18 04:54] LABS: ALBUMIN 2.8 GM/DL (3.2-4.5)
[2021-09-18 04:55] LABS: CALCIUM 7.5 MG/DL (8.5-10.1)
[2021-09-18 04:58] LABS: BILIRUBIN,TOTAL 0.5 MG/DL (0.1-1.0)
[2021-09-18 05:00] LABS: CREATININE SERUM 0.74 MG/DL (0.60-1.30); PHOSPHORUS 2.6 MG/DL (2.3-4.7)
[2021-09-18 05:03] LABS: MAGNESIUM 2.4 MG/DL (1.6-2.4)
[2021-09-18] MEDS ORDERED: KCL 20 MEQ TAB (K-DUR) PO ONE (05:15)
[2021-09-18] MEDS ORDERED: KCL 20 MEQ TAB (K-DUR) PO SCH (06:00)
[2021-09-18] MEDS ORDERED: MAGNESIUM 1 GM/100 ML IVPB 100 ML IV SCH (06:00)
[2021-09-18] MEDS ORDERED: POTASSIUM CL 10MEQ/50ML IVPB 50 ML IV SCH (06:00)
[2021-09-18] MEDS: THIAMINE 100 MG (VITAMIN B-1) TAB PO SCH (06:26)
[2021-09-18] MEDS: MULTIVIT W/MINERALS TAB (THERAGRAN M) PO SCH (06:26)
--- NOTE | 2021-09-18 06:26 | Progress Note - Hospitalist ---
Subjective HPI/CC On Admission Date Seen by Provider: Sep 18, 2021 Time Seen by Provider: 12:00 Chief complaint: Atrial fibrillation with rapid response History of present illness: This is a 76-year-old white male alcoholic who presented to the ER with palpitations chest pain found to have atrial fibrilla tion with RVR. Patient was placed on a Cardizem drip and now on amiodarone drip. Dr. Irwin appreciated. Patient is not willing to answer any my questions because he said he did not sleep at all last night. Subjective/Events-last exam Patient doing pretty well Refuses to talk to me Transfer to fourth floor Alcohol withdrawal protocol maintained Objective Exam Vital Signs Vital Signs Date Time Temp Pulse Resp B/P (MAP) Pulse Ox O2 Delivery O2 Flow Rate FiO2 09/19/21 04:26 36.6 95 18 116/66 92 Room Air 09/18/21 12:00 4.00 09/17/21 03:34 21 Capillary Refill : Less Than 3 Seconds General Appearance: No Apparent Distress, WD/WN, Chronically ill Respiratory: Lungs Clear, Normal Breath Sounds Cardiovascular: Regular Rate, Rhythm Results/Procedures Lab Patient resulted labs reviewed. Assessment/Plan Assessment and Plan Assess & Plan/Chief Complaint Assessment: Atrial fibrillation with rapid response Alcoholism Smoker Chronic back pain Plan: Cardizem and amiodarone drip Appreciate Dr. Irwin Alcohol withdrawal protocol 09/18/2021: Alcohol withdrawal protocol Appreciate cardiology Critical Care Critically Ill Patient Diagnosis/Problems Diagnosis/Problems (1) Atrial fibrillation with rapid ventricular response Status: Acute (2) Alcohol dependence Status: Acute (3) Chest pain Status: Acute (4) Cardiomyopathy (5) ALD (alcoholic liver disease) Status: Chronic (6) History of cerebrovascular accident Clinical Quality Measures AMI/AHF: ASA po Prior to arrival: BHARGAV Jackman DO Sep 18, 2021 06:26
[2021-09-18] MEDS: LORazepam 1 MG (ATIVAN) TAB PO PRN ×2 (07:08→15:03)
[2021-09-18] MEDS: BENZONATATE 100 MG (TESSALON) CAPSULE PO SCH ×3 (08:33→20:23)
[2021-09-18] MEDS: APIXABAN 5 MG (ELIQUIS) TABLET PO SCH ×2 (08:33→20:23)
[2021-09-18] MEDS: PANTOPRAZOLE 40 MG (PROTONIX) TAB PO SCH (08:33)
[2021-09-18] MEDS: MAGNESIUM OXIDE (MAG-OX)400 MG TAB PO SCH ×2 (08:33→20:23)
[2021-09-18] MEDS: FOLIC ACID 1 MG TAB PO SCH (08:33)
[2021-09-18] MEDS ORDERED: fentaNYL INJ 100 MCG/2 ML AMP ONE (09:18)
[2021-09-18] MEDS ORDERED: HEParin 1000 UNIT/ML (10ML VIAL) FOR BOLUS ONE (09:18)
[2021-09-18] MEDS ORDERED: NS IV 1000 ML 1,000 ML ONE (09:18)
[2021-09-18] MEDS ORDERED: HEParin (CATH LAB) 2,000 ML IV ONE (09:18)
[2021-09-18] MEDS ORDERED: LIDOCAINE 2% 20 ML (XYLOCAINE) VIAL ONE (09:18)
[2021-09-18] MEDS ORDERED: MIDAZOLAM 5 MG/5 ML (VERSED) VIAL ONE (09:18)
[2021-09-18] MEDS ORDERED: NITRO DRIP 25000 MCG/D5W 0 ML IV ONE (09:23)
--- NOTE | 2021-09-18 09:54 | Tele-ICU Progress Note ---
Progress Note video rounds completed Reviewed with bedside RN 66 y/o male with a fib and cardiomyopathy and reduced EF Going for cardiac cath today Will shelley go to step down post cath Focused Exam Height, Weight, BMI Height: 6'1.00" Weight: 211lbs. 0.5oz. 95.507234ra; 26.59 BMI Method:Stated Labs Laboratory Tests 09/18/21 04:40 Labs Labs Laboratory Tests 09/17/21 11:37: Glucometer 121H 09/17/21 17:43: Glucometer 117H 09/18/21 01:24: Glucometer 132H 09/18/21 04:40: White Blood Count 4.1L, Red Blood Count 3.84L, Hemoglobin 13.4, Hematocrit 40, Mean Corpuscular Volume 104H, Mean Corpuscular Hemoglobin 35H, Mean Corpuscular Hemoglobin Concent 34, Red Cell Distribution Width 14.2, Platelet Count 81L, Mean Platelet Volume 12.2, Immature Granulocyte % (Auto) 1, Neutrophils (%) (Auto) 65, Lymphocytes (%) (Auto) 21, Monocytes (%) (Auto) 11, Eosinophils (%) (Auto) 2, Basophils (%) (Auto) 1, Neutrophils # (Auto) 2.6, Lymphocytes # (Auto) 0.9L, Monocytes # (Auto) 0.5, Eosinophils # (Auto) 0.1, Basophils # (Auto) 0.0, Immature Granulocyte # (Auto) 0.0, Percent Immature Platelet Fraction 10.2H, Sodium Level 132L, Potassium Level 3.4L, Chloride Level 98, Carbon Dioxide Level 24, Anion Gap 10, Blood Urea Nitrogen 8, Creatinine 0.74, Estimat Glomerular Filtration Rate 101, BUN/Creatinine Ratio 11, Glucose Level 131H, Calcium Level 7.5L, Corrected Calcium 8.5, Phosphorus Level 2.6, Magnesium Level 2.4, Total Bilirubin 0.5, Aspartate Amino Transf (AST/SGOT) 83H, Alanine Aminotransferase (ALT/SGPT) 57H, Alkaline Phosphatase 64, Total Protein 5.0L, Albumin 2.8L, Triglycerides Level 70, Cholesterol Level 119, LDL Cholesterol Direct 60, VLDL Cholesterol 14, HDL Cholesterol 41 MICHELLE JOSEPH MD Sep 18, 2021 09:54
--- NOTE | 2021-09-18 10:37 | Conscious Sedation/ASA ---
Conscious Sedation Pre-Proced Time 10:36 ASA Score 3 For ASA 3 and 4: Consider anesthesia and medical clearance. Also, for patients with a history of failed moderate sedation consider anesthesia. Airway Lungs Heart ASA score ASA 1: a normal healthy patient ASA 2: a patient with a mild systemic disease (mid diabetes, controlled hypertension, obesity x ASA 3: a patient with a severe systemic disease that limits activity (angina, COPD, prior Myocardial infarction) ASA 4: a patient with an incapacitating disease that is a constant threat to life (CHF, renal failure) ASA 5: a moribund patient not expected to survive 24 hrs. (ruptured aneurysm) ASA 6: a declared brain- patient whose organs are being harvested. For emergent operations, add the letter E after the classification Mallampati Classification Grade 3 Sedation Plan Analgesia, Amnesia, Plan communicated to team members, Discussed options with patient/fam, Discussed risks with patient/fam The patient is an appropriate candidate to undergo the planned procedure, sedation, and anesthesia. The patient immediately re-assessed prior to indication. AVRIL LEAL MD Sep 18, 2021 10:37
--- NOTE | 2021-09-18 10:45 | Cardiology Progress Note ---
Subjective Date Seen by Provider: Sep 18, 2021 Time Seen by Provider: 10:40 Subjective/Events-last exam Patient was seen at bedside, lethargic, was started on Ativan. Has been complaining of nausea and vomiting. Review of Systems General: No Chills, No Night Sweats; Fatigue, Malaise; No Appetite, No Other HEENT: No Head Aches, No Visual Changes, No Eye Pain, No Ear Pain, No Dysphasia, No Sinus Congestion, No Post Nasal Drip, No Sore Throat, No Other Pulmonary: No Dyspnea, No Cough, No Pleuritic Chest Pain, No Other Cardiovascular: No: Chest Pain, Palpitations, Orthopnea, Paroxysmal Noc. Dyspnea, Edema, Lt Headedness, Other Objective-Cardiology Exam Last Set of Vital Signs Vital Signs 09/17/21 09/18/21 09/18/21 03:34 00:00 09:45 Temp 36.2 Pulse 86 Resp 11 B/P (MAP) 107/79 Pulse Ox 95 O2 Delivery Nasal Cannula O2 Flow Rate 4.00 FiO2 21 I&O Intake and Output 09/18/21 00:00 Intake Total 4130 ml Output Total 1135 ml Balance 2995 ml Intake Oral 2130 ml IV Total 2000 ml Output Urine Total 1135 ml # Voids 1 Daily Weight Change Unsure General: Alert, Oriented X3, Cooperative HEENT: Atraumatic, PERRLA Neck: Supple, No JVD, No Thyromegaly Lungs: Clear to Auscultation, Normal Air Movement Heart: Regular Rate, Normal S1, Normal S2, No Murmurs Abdomen: Normal Bowel Sounds, Soft, No Tenderness, No Hepatosplenomegaly, No Masses Extremities: No Clubbing, No Cyanosis, No Edema, Normal Pulses, No Tenderness/Swelling Skin: No Rashes, No Breakdown, No Significant Lesion Neuro: Normal Gait, Normal Speech, Strength at 5/5 X4 Ext, Normal Tone, S ensation Intact Psych/Mental Status: Mental Status NL, Mood NL Results Lab Laboratory Tests 09/18/21 04:40 A/P-Cardiology Admission Diagnosis Syncope Chest pain Congestive heart failure, chronic compensated left ventricular systolic dysfunction Paroxysmal atrial fibrillation Assessment/Plan Syncope, multiple episodes over the past few months. Associated with severe chest pain. Unknown etiology Could be vasovagal or secondary to arrhythmia. Underlying malignant arrhythmia such as ventricular tachycardia or fibrillation cannot be excluded. Currently back in sinus rhythm with frequent PVCs. Patient has been maintained on Coreg, metoprolol and lisinopril. I am stopping lisinopril due to recurrent cough and stopping Coreg. I will restart metoprolol at low-dose Received amiodarone bolus and drip. Frequent premature ventricular contractions noted on telemetry, patient was s tarted on amiodarone drip and metoprolol. Tolerated medication well. Continue to monitor Severe chest pain, recurrent episode of chest pain associated with syncope, underwent cardiac catheterization by Dr. Pink in June 2021 reporting mild coronary artery disease nonobstructive disease. Repeat cardiac catheterization was done on September 18, 2021 due to severe chest pain and severe deterioration in the left ventricular function. Mild coronary artery disease nonobstructive disease Elevated left ventricular end-diastolic pressure. Starting Lasix. Congestive heart failure, chronic compensated left ventricular systolic dysfunction, nonischemic cardiomyopathy 2D echocardiogram done on September 17, 2021 showing dilated left ventricle with diffuse left ventricular hypokinesia with segmental wall motion abnormality ejection fraction 25 to 30%, PA pressure 30 to 35 mmHg Patient was started on beta-blockers, I am adding Entresto on September 19, 2021 Underlying malignant arrhythmia cannot be excluded as a cause for his syncope, placing him on a LifeVest. Paroxysmal atrial fibrillation, documented during the emergency room visit, converted to sinus rhythm on Cardizem drip. I started him on Cardizem bolus and drip on September 17, 2021. I will add oral [id number] score of 2, starting on Eliquis Persistent cough, could be secondary to early pneumonia, patient has been on lisinopril as an outpatient which was discontinued on September 17, 2021 Thoracic aortic aneurysm, he had an aortic root measuring 4 cm on an echocardiogram at an outside hospital. Continue to monitor closely Hypertension, monitor blood pressure after the medication changes Elevated liver enzymes, could be secondary to alcoholic hepatitis. Dementia, patient has significant memory loss. Tobaccoism, educated on smoking cessation Alcoholism. Started on thiamine, alcohol withdrawal precautions Gastroesophageal reflux disease. AVRIL LEAL MD Sep 18, 2021 10:45
--- NOTE | 2021-09-18 10:50 | Cardiac Cath Report ---
Cardiac Cath Report Physician (s)/[place] Man (s) Physician AVRIL LEAL MD Pre-Procedure Diagnosis Pre-Procedure Diagnosis: Syncope, severe cardiomyopathy Post-Procedure Note Procedure Start Date: Sep 18, 2021 Name of Procedure: Left heart catheterization Aortic arch angiogram Findings/Procedure Note PROCEDURE NOTE: 66-year-old gentleman with a history of cardiomyopathy, nonischemic, admitted with syncope associated with severe chest pain, has significant deterioration in the left ventricular function with segmental wall motion abnormality, decided to proceed with cardiac catheterization possible PTCA. After explaining the procedure to the patient, all pros and cons were explained, all questions were answered. The patient signed the consent and then he was placed on the cardiac catheterization laboratory. Groin was prepped SL fashion local anesthesia was used. Sheath placed in the right femoral artery. Cole right and left catheter were used to access the coronary system. Cole right was prolapsed to the left ventricular cavity, pressure was measured, pullback LV to aorta was done, aortic arch angiogram was done to evaluate for the aneurysm that was reported previously At the end of the procedure the sheath was removed. Closure device was deployed FINDINGS: Hemodynamics LV 101/28, end-diastolic pressure of 28 Aorta 101/65 mean of 79 ANATOMY: Left Main is free of obstructive disease Left Anterior Descending tapered down into smaller artery with mild disease, slightly tortuous nonobstructive disease Left Circumflex has mild disease nonobstructive disease Right Coronary Artery has mild disease nonobstructive disease LV Gram was not done, pressure was measured Aorta evaluation done with aortic arch angiogram, showing slightly prominent aortic arch, no dissection, no significant aneurysm, normal origin of the brachiocephalic artery left carotid and left subclavian arteries. CONCLUSION: 1. Mild coronary artery disease nonobstructive disease 2. Nonischemic cardiomyopathy, elevated left ventricular end-diastolic pressure, known ejection fraction 25 to 30% per echocardiogram 3. Slightly prominent aortic arch, no dissection or aneurysm DISCUSSION AND RECOMMENDATION: Continue to maximize medical therapy Anesthesia Type: Conscious Sedation Estimated blood loss (mL): 15 ml Contrast Amount: 50 ml Total Radiation Dose: 381 mGy Post-Procedure Diagnosis Post-operative diagnosis: Chest pain Syncope Congestive heart failure, chronic compensated left ventricular systolic dysfunction, nonischemic cardiomyopathy Paroxysmal atrial fibrillation AVRIL LEAL MD Sep 18, 2021 10:50
[2021-09-18] MEDS: LORazepam INJ 2 MG/ML (ATIVAN) VIAL IV PRN ×7 (11:02→23:56)
[2021-09-18] MEDS: THIAMINE INJECTION 100 MG, FOLIC ACID INJECTION 1 MG, VITAMIN MULTI INJECTION 10 ML, MA... IV SCH ×5 (11:03)
[2021-09-19] MEDS ORDERED: HALOPERIDOL 5 MG/ML (HALDOL) VIAL ONE (00:26)
[2021-09-19] MEDS ORDERED: HALOPERIDOL 5 MG/ML (HALDOL) VIAL IM ONE (00:30)
[2021-09-19] MEDS ORDERED: HALOPERIDOL 5 MG/ML (HALDOL) VIAL IM PRN (00:30)
[2021-09-19] MEDS: LORazepam INJ 2 MG/ML (ATIVAN) VIAL IV PRN ×4 (02:04→06:53)
[2021-09-19 06:29] LABS: BASOPHILS % (AUTO) 1 % (0-10); HEMOGLOBIN 13.5 g/dL (13.3-17.7); LYMPHOCYTES # (AUTO) 0.9 10^3/uL (1.0-4.0)
[2021-09-19 06:31] LABS: EOSINOPHILS # (AUTO) 0.1 10^3/uL (0.0-0.3); EOSINOPHILS % (AUTO) 1 % (0-10); HEMATOCRIT 41 % (40-54); LYMPHOCYTES % (AUTO) 21 % (12-44); MEAN CORPUSCULAR HEMOGLOBIN 35 pg (25-34); MEAN CORPUSCULAR HGB CONC 33 g/dL (32-36); MEAN CORPUSCULAR VOLUME 106 fL (80-99); MEAN PLATELET VOLUME 12.4 fL (9.0-12.2); MONOCYTES # (AUTO) 0.5 10^3/uL (0.0-1.0); MONOCYTES % (AUTO) 11 % (0-12); NEUTROPHILS # (AUTO) 2.9 10^3/uL (1.8-7.8); NEUTROPHILS % (AUTO) 65 % (42-75); PLATELET COUNT 77 10^3/uL (130-400); WHITE BLOOD COUNT 4.4 10^3/uL (4.3-11.0)
[2021-09-19 06:46] LABS: ALBUMIN 2.8 GM/DL (3.2-4.5); BILIRUBIN,TOTAL 0.5 MG/DL (0.1-1.0); CALCIUM 7.8 MG/DL (8.5-10.1); CREATININE SERUM 0.77 MG/DL (0.60-1.30); TOTAL PROTEIN 5.2 GM/DL (6.4-8.2)
[2021-09-19] MEDS ORDERED: meTOprolol 5 MG/5 ML (LOPRESSOR) VIAL IV ONE (09:30)
[2021-09-19] MEDS ORDERED: AMIODARONE 200 MG (CORDARONE) TAB PO SCH (09:30)
--- NOTE | 2021-09-19 09:30 | Cardiology Progress Note ---
Subjective Date Seen by Provider: Sep 19, 2021 Time Seen by Provider: 09:27 Subjective/Events-last exam Patient was seen at bedside, lethargic and confused. Back to atrial fibrillation with rapid ventricular response Review of Systems General: No Chills, No Night Sweats; Fatigue; No Malaise, No Appetite, No Other HEENT: No Head Aches, No Visual Changes, No Eye Pain, No Ear Pain, No Dysphasia, No Sinus Congestion, No Post Nasal Drip, No Sore Throat, No Other Pulmonary: Dyspnea; No Cough, No Pleuritic Chest Pain, No Other Cardiovascular: No: Chest Pain, Palpitations, Orthopnea, Paroxysmal Noc. Dyspnea, Edema, Lt Headedness, Other Objective-Cardiology Exam Last Set of Vital Signs Vital Signs 09/17/21 09/18/21 09/19/21 09/19/21 03:34 12:00 04:26 07:00 Temp 36.6 Pulse 140 Resp 18 B/P (MAP) 116/66 Pulse Ox 92 O2 Delivery Room Air O2 Flow Rate 4.00 FiO2 21 I&O Intake and Output 09/19/21 00:00 Intake Total 1409 ml Output Total 1850 ml Balance -441 ml Intake Oral 1150 ml IV Total 259 ml Output Urine Total 1850 ml # Voids 2 # Bowel Movements 2 General: Alert, Cooperative, Other (Confused) HEENT: Atraumatic, PERRLA Neck: Supple, No JVD, No Thyromegaly Lungs: Normal Air Movement, Other (Bilateral wheezing) Heart: Normal S1, Normal S2, No Murmurs, Other (Atrial fibrillation with rapid ventricular response) Abdomen: Normal Bowel Sounds, Soft, No Tenderness, No Hepatosplenomegaly, No Masses Extremities: No Clubbing, No Cyanosis, No Edema, Normal Pulses, No Tenderness/Swelling Skin: No Rashes, No Breakdown, No Significant Lesion Neuro: Normal Speech, Normal Tone, Sensation Intact Psych/Mental Status: Mood NL, Other (Confused) Results Lab Laboratory Tests 09/19/21 06:20 A/P-Cardiology Admission Diagnosis Syncope Chest pain Congestive heart failure, chronic compensated left ventricular systolic dysfunction Paroxysmal atrial fibrillation Assessment/Plan Syncope, multiple episodes over the past few months. Associated with severe chest pain. Unknown etiology Could be vasovagal or secondary to arrhythmia. Underlying malignant arrhythmia such as ventricular tachycardia or fibrillation cannot be excluded. Currently back in sinus rhythm with frequent PVCs. Patient has been maintained on Coreg, metoprolol and lisinopril. I am stopping lisinopril due to recurrent cough and stopping Coreg. Restarted Lopressor IV and amiodarone at this time. Paroxysmal atrial fibrillation, had an episode of atrial fibrillation during the emergency room visit, converted to sinus rhythm on Cardizem drip. Went back to atrial fibrillation on 09/19/2021, he received a bolus and a drip of amiodarone, Maintained on Toprol 25 mg daily. I will add amiodarone 400 twice daily and Cardizem 30 every 6 hours Frequent premature ventricular contractions noted on telemetry, patient was started on amiodarone drip and metoprolol. Tolerated medication well. Continue to monitor Acute delirium, change in mental status, could be secondary to alcohol withdrawal, maintained on Ativan, managed by primary care physician Severe chest pain, recurrent episode of chest pain associated with syncope, underwent cardiac catheterization by Dr. Pink in June 2021 reporting mild coronary artery disease nonobstructive disease. Repeat cardiac catheterization was done on September 18, 2021 due to severe chest pain and severe deterioration in the left ventricular function. Mild coronary artery disease nonobstructive disease Elevated left ventricular end-diastolic pressure. Starting Lasix. Congestive heart failure, chronic compensated left ventricular systolic dysfunction, nonischemic cardiomyopathy 2D echocardiogram done on September 17, 2021 showing dilated left ventricle with diffuse left ventricular hypokinesia with segmental wall motion abnormality ejection fraction 25 to 30%, PA pressure 30 to 35 mmHg Patient was started on beta-blockers, I am adding Entresto on September 20, 2021 Underlying malignant arrhythmia cannot be excluded as a cause for his syncope, placing him on a LifeVest. [id number] score of 2, starting on Eliquis Persistent cough, could be secondary to early pneumonia, patient has been on lisinopril as an outpatient which was discontinued on September 17, 2021 Thoracic aortic aneurysm, he had an aortic root measuring 4 cm on an echocardiogram at an outside hospital. Continue to monitor closely Hypertension, monitor blood pressure after the medication changes Elevated liver enzymes, could be secondary to alcoholic hepatitis. Dementia, patient has significant memory loss. Tobaccoism, educated on smoking cessation Alcoholism. Started on thiamine, alcohol withdrawal precautions Gastroesophageal reflux disease. AVRIL LEAL MD Sep 19, 2021 09:30
[2021-09-19] MEDS: PANTOPRAZOLE 40 MG (PROTONIX) TAB PO SCH (09:33)
[2021-09-19] MEDS: APIXABAN 5 MG (ELIQUIS) TABLET PO SCH (09:33)
[2021-09-19] MEDS: BENZONATATE 100 MG (TESSALON) CAPSULE PO SCH ×2 (09:33→13:10)
[2021-09-19] MEDS: FOLIC ACID 1 MG TAB PO SCH (09:33)
[2021-09-19] MEDS: MAGNESIUM OXIDE (MAG-OX)400 MG TAB PO SCH (09:33)
[2021-09-19] MEDS: MULTIVIT W/MINERALS TAB (THERAGRAN M) PO SCH (09:33)
[2021-09-19] MEDS: THIAMINE INJECTION 100 MG, FOLIC ACID INJECTION 1 MG, VITAMIN MULTI INJECTION 10 ML, MA... IV SCH ×5 (09:33)
[2021-09-19] MEDS ORDERED: FUROSEMIDE 40 MG/4 ML INJ (LASIX) IVP ONE (09:45)
[2021-09-19] MEDS: THIAMINE 100 MG (VITAMIN B-1) TAB PO SCH (09:46)
--- NOTE | 2021-09-19 18:13 | Progress Note ---
Subjective Subjective/Events-last exam Patient states that he is not feeling well this AM but is wanting to go home. States that he drinks 2 glasses of whiskey daily and he is not interested in wanting to stop drinking. States that he has stopped for multiple days in the past and not had withdraw symptoms but says that it has been a long time since that happened. Denies any withdraw seizures. Denies chest pain but can feel his heart beat. Review of Systems General: Fatigue Pulmonary: Dyspnea Cardiovascular: Palpitations, Edema Objective Exam Last Set of Vital Signs Vital Signs Date Time Temp Pulse Resp B/P (MAP) Pulse Ox O2 Delivery O2 Flow Rate FiO2 09/19/21 13:00 144 09/19/21 09:00 Room Air 09/19/21 04:26 36.6 18 116/66 92 09/18/21 12:00 4.00 09/17/21 03:34 21 Capillary Refill : Less Than 3 Seconds I&O Intake and Output 09/19/21 00:00 Intake Total 1409 ml Output Total 1850 ml Balance -441 ml Intake Oral 1150 ml IV Total 259 ml Output Urine Total 1850 ml # Voids 2 # Bowel Movements 2 General: Alert, Oriented X3, Mild Distress (sweaty and agitated) Lungs: Clear to Auscultation, Normal Air Movement Heart: No Murmurs, Other (tachycardic rate) Abdomen: Soft, No Tenderness Neuro: Normal Speech Results/Procedures Lab Laboratory Tests 09/19/21 06:20: White Blood Count 4.4, Red Blood Count 3.84L, Hemoglobin 13.5, Hematocrit 41, Mean Corpuscular Volume 106H, Mean Corpuscular Hemoglobin 35H, Mean Corpuscular Hemoglobin Concent 33, Red Cell Distribution Width 14.3, Platelet Count 77L, Mean Platelet Volume 12.4H, Immature Granulocyte % (Auto) 1, Neutrophils (%) (Auto) 65, Lymphocytes (%) (Auto) 21, Monocytes (%) (Auto) 11, Eosinophils (%) (Auto) 1, Basophils (%) (Auto) 1, Neutrophils # (Auto) 2.9, Lymphocytes # (Auto) 0.9L, Monocytes # (Auto) 0.5, Eosinophils # (Auto) 0.1, Basophils # (Auto) 0.0, Immature Granulocyte # (Auto) 0.0, Percent Immature Platelet Fraction 10.8H, Sodium Level 135, Potassium Level 4.0, Chloride Level 102, Carbon Dioxide Level 24, Anion Gap 9, Blood Urea Nitrogen 9, Creatinine 0.77, Estimat Glomerular Filtration Rate 99, BUN/Creatinine Ratio 12, Glucose Level 99, Calcium Level 7.8L, Corrected Calcium 8.8, Total Bilirubin 0.5, Aspartate Amino Transf (AST/SG OT) 65H, Alanine Aminotransferase (ALT/SGPT) 49, Alkaline Phosphatase 67, Total Protein 5.2L, Albumin 2.8L Microbiology 09/17/21 MRSA Screen - Final, Complete Assessment/Plan Assessment/Plan (1) Atrial fibrillation with rapid ventricular response Status: Acute Assessment & Plan: 09/19: Cardiology consulted and managing (2) Alcohol withdrawal Status: Acute Assessment & Plan: 09/19: Patient is starting to get very agitated, Threatening AMA, discussed risks given that he is not yet rate controlled, He does not wish to stop drinking Qualifiers: Qualified Codes: F10.230 - Alcohol dependence with withdrawal, uncomplicated (3) Alcohol dependence Status: Acute Clinical Quality Measures AMI/AHF: ASA po Prior to arrival: CRISTIAN Turk MD Sep 19, 2021 18:13
--- NOTE | 2021-09-19 19:22 | Discharge Summary ---
Diagnosis/Chief Complaint Date of Admission Sep 17, 2021 at 02:06 Date of Discharge Sep 19, 2021 at 18:15 Admission Diagnosis Admission Diagnosis See below Discharge Diagnosis See below Problems/Diagnosis: (1) Atrial fibrillation with rapid ventricular response Assessment & Plan: 09/19: Cardiology consulted and managing Status: Acute (2) Alcohol withdrawal Assessment & Plan: 09/19: Patient is starting to get very agitated, Threatening AMA, discussed risks given that he is not yet rate controlled, He does not wish to stop drinking Qualifiers: Qualified Codes: F10.230 - Alcohol dependence with withdrawal, uncomplicated Status: Acute (3) Alcohol dependence Status: Acute Discharge Summary-Simple/Stand Consultations Dr Irwin: Cardiology Discharge Physical Examination Allergies: Coded Allergies: Penicillins (Verified Allergy, Unknown, 10/17/13) morphine (Verified Allergy, Unknown, pt has received Hydromorphone in the past, 03/18/21) Vitals & I&Os Vital Sign - Last 12Hours Date Time Temp Pulse Resp B/P (MAP) Pulse Ox O2 Delivery O2 Flow Rate FiO2 09/19/21 13:00 144 09/19/21 09:00 Room Air 09/19/21 04:26 36.6 18 116/66 92 09/18/21 12:00 4.00 09/17/21 03:34 21 Intake and Output 09/19/21 00:00 Intake Total 590 ml Output Total 600 ml Balance -10 ml Hospital Course See final discharge diagnosis. Discussion & Recommendations 66 yo M here for Atrial fibrillation with RVR. working on getting patient rate controlled and patient left AMA. Discharge Condition at discharge Left AMA Instructions to patient/family Please see electronic discharge instructions given to patient. Discharge Medications Reviewed and agree with Discharge Medication list on patient's Discharge Instruction sheet Clinical Quality Measures AMI/AHF: ASA po Prior to arrival: CRISTIAN Turk MD Sep 19, 2021 19:22
== END 2021-09-19 18:15 | disposition left against medical advice (07) | DRG 287 ==
LOC: EDUNIT# 23:54 → ER 23:58 → ICU 09-17 02:06 → EDLOC 09-17 02:06 → 4TH 09-18 15:15
PROVIDERS: ADMIT Internal Medicine; ATTEND Family Medicine
PROC: 8E0ZXY6 Isolation (ICD-10-PCS; 2021-09-17)
PROC: 4A023N7 Measurement of Cardiac Sampling and Pressure, Left Heart, Percutaneous Approach (ICD-10-PCS; principal; 2021-09-18)
PROC: B2111ZZ Fluoroscopy of Multiple Coronary Arteries using Low Osmolar Contrast (ICD-10-PCS; 2021-09-18)
PROC: B3101ZZ Fluoroscopy of Thoracic Aorta using Low Osmolar Contrast (ICD-10-PCS; 2021-09-18)
DX: I48.0 Paroxysmal atrial fibrillation (principal); F10.239 Alcohol dependence with withdrawal, unspecified; I50.22 Chronic systolic (congestive) heart failure; I49.3 Ventricular premature depolarization; Y90.6 Blood alcohol level of 120-199 mg/100 ml; K70.9 Alcoholic liver disease, unspecified; I42.6 Alcoholic cardiomyopathy; I11.0 Hypertensive heart disease with heart failure; I25.10 Atherosclerotic heart disease of native coronary artery without angina pectoris; I71.2 Thoracic aortic aneurysm, without rupture; F17.210 Nicotine dependence, cigarettes, uncomplicated; M54.9 Dorsalgia, unspecified; F03.90 Unspecified dementia, unspecified severity, without behavioral disturbance, psychotic disturbance, mood disturbance, and anxiety; K21.9 Gastro-esophageal reflux disease without esophagitis; J44.9 Chronic obstructive pulmonary disease, unspecified; Z86.16 Personal history of COVID-19; Z79.82 Long term (current) use of aspirin; Z88.5 Allergy status to narcotic agent; Z88.0 Allergy status to penicillin
CPT/HCPCS: 36221; 36415; 71045; 80053; 80061; 80320; 82947; 83735; 83874; 84100; 84484; 85025; 85610; 85730; 86703; 87081; 93005; 93041; 93306; 93458

== ENCOUNTER 2021-09-27 19:17 | Inpatient (IN) | payer MEDICARE ==
[~2021-09-27] VITALS: Ht 188 cm; Wt 99.5 kg
[2021-09-27 19:35] LABS: BASOPHILS % (AUTO) 1 % (0-10); EOSINOPHILS # (AUTO) 0.1 10^3/uL (0.0-0.3); EOSINOPHILS % (AUTO) 2 % (0-10); HEMATOCRIT 43 % (40-54); HEMOGLOBIN 14.2 g/dL (13.3-17.7); LYMPHOCYTES # (AUTO) 1.7 10^3/uL (1.0-4.0); LYMPHOCYTES % (AUTO) 31 % (12-44); MEAN CORPUSCULAR HEMOGLOBIN 35 pg (25-34); MEAN CORPUSCULAR HGB CONC 33 g/dL (32-36); MEAN CORPUSCULAR VOLUME 105 fL (80-99); MEAN PLATELET VOLUME 11.4 fL (9.0-12.2); MONOCYTES # (AUTO) 0.4 10^3/uL (0.0-1.0); MONOCYTES % (AUTO) 7 % (0-12); NEUTROPHILS # (AUTO) 3.2 10^3/uL (1.8-7.8); NEUTROPHILS % (AUTO) 59 % (42-75); PLATELET COUNT 185 10^3/uL (130-400); WHITE BLOOD COUNT 5.4 10^3/uL (4.3-11.0)
[2021-09-27] MEDS ORDERED: ONDANSETRON 4 MG/2 ML (SDV) Z0FRAN IVP ONE (19:45)
--- NOTE | 2021-09-27 19:49 | Diagnostic Imaging Report ---
INDICATION: Chest pain. Time Of Exam: 7:47 PM Correlation is made with prior chest of 09/17/2021. FINDING: The heart size is normal. The pulmonary vascularity is unremarkable. The lungs are clear. No infiltrate, effusion or pneumothorax is detected. IMPRESSION: No acute cardiopulmonary process is detected. Dictated by: Dictated on workstation # [id number]
[2021-09-27 19:54] LABS: ALBUMIN 3.4 GM/DL (3.2-4.5); BILIRUBIN,TOTAL 0.5 MG/DL (0.1-1.0); CALCIUM 8.4 MG/DL (8.5-10.1); CREATININE SERUM 0.76 MG/DL (0.60-1.30); MAGNESIUM 1.9 MG/DL (1.6-2.4); POTASSIUM 3.1 MMOL/L (3.6-5.0); PROTHROMBIN TIME PATIENT 13.2 SEC (12.2-14.7); TOTAL PROTEIN 6.5 GM/DL (6.4-8.2)
--- NOTE | 2021-09-27 20:00 | Diagnostic Imaging Report ---
PROCEDURE: CT head and CT cervical spine without contrast. TECHNIQUE: Multiple contiguous axial images were obtained through the brain and cervical spine without the use of intravenous contrast. Sagittal and coronal reformations through the cervical spine were then performed. Auto Exposure Controls were utilized during the CT exam to meet ALARA standards for radiation dose reduction. INDICATION: Fall with head and neck injury and chest pain. Correlation is made with prior CT from 08/31/2021. CT HEAD: There is some prominence of the ventricles and sulci, similar to prior exam. No sulcal effacement or midline shift is identified. No acute intra-axial or extra-axial hemorrhage is detected. Cisterns are patent. Visualized paranasal sinuses are clear. IMPRESSION: Stable noncontrast head CT. No acute intracranial process is detected. CT cervical spine: Reversal of normal cervical curvature is similar to prior study. There is multilevel degenerative disc disease with variable disc space narrowing and marginal spurring, greatest at C5-C6 and C6-C7 levels. No fractures are identified. Prevertebral tissues are within normal limits. Odontoid is intact. IMPRESSION: Cervical spondylosis. No acute bony abnormality is detected. Dictated by: Dictated on workstation # [id number]
--- NOTE | 2021-09-27 20:35 | ED Chest Pain ---
General Chief Complaint: Chest Pain Stated Complaint: CHEST PAIN Nursing Triage Note: Pt arrives via EMS from home for c/o chest pain; onset this AM. Pt reports chest pain "all day" states "a couple of hours" he fell et hit his head on a wall. Pt seen in ED recently for similar chest pain c/o. Source: patient Exam Limitations: no limitations (TITUS SNOWDEN APRN) History of Present Illness Date Seen by Provider: Sep 27, 2021 Time Seen by Provider: 19:50 Initial Comments To ER by EMS from home with reports of chest pain since this morning. History of atrial fibrillation and alcoholism. Timing/Duration: 1-2 days Severity/Quality: moderate Radiation: no radiation Prior CP/Workup: no prior chest pain ASA po RADIOLOGY ORDERLY: No NTG SL RADIOLOGY ORDERLY: No Associated Symptoms: denies symptoms (TITUS SNOWDEN APRN) Allergies and Home Medications Allergies Coded Allergies: Penicillins (Verified Allergy, Unknown, 10/17/13) morphine (Verified Allergy, Unknown, pt has received Hydromorphone in the past, 03/18/21) Patient Home Medication List Home Medication List Reviewed: Yes (TITUS SNOWDEN APRN) Home Medication List Reviewed: Yes (LION REED MD) No Active Prescriptions or Reported Meds Review of Systems Review of Systems Constitutional: see HPI EENTM: No Symptoms Reported Respiratory: No Symptoms Reported Cardiovascular: See HPI, Chest Pain Gastrointestinal: See HPI Genitourinary: No Symptoms Reported Musculoskeletal: no symptoms reported Skin: no symptoms reported Psychiatric/Neurological: No Symptoms Reported Endocrine: No Symptoms Reported Hematologic/Lymphatic: No Symptoms Reported (TITUS SNOWDEN APRN) Past Eaoftfh-Sjfrxz-Vhyfud Hx Patient Social History Tobacco Use?: Yes Tobacco type used: Cigarettes Smoking Status: Current Everyday Smoker Use of E-Cig and/or Vaping dev: No Substance use?: No Alcohol Use?: Yes Alcohol Frequency: Daily Pt feels they are or have been: No (TITUS SNOWDEN APRN) Immunizations Up To Date Tetanus Booster (TDap): Less than 5yrs PED Vaccines UTD: No First/Initial COVID19 Vaccinat: YES Second COVID19 Vaccination Loc: YES Third COVID19 Vaccination Date: YES (TITUS SNOWDEN APRN) Past Medical History Surgery/Hospitalization HX: orthopedic, heart cath, asthma, a-fib, pancreatitis, stroke, ch. back pain. Surgeries: Yes Cardiac, Orthopedic Respiratory: Yes (History of traumatic pneumothorax) Asthma Cardiac: Yes Atrial Fibrillation, Irregular Heartbeat Neurological: Yes (MILD RIGHT SIDE WEAKNESS) Stroke Genitourinary: No Gastrointestinal: Yes Pancreatitis, Gall Bladder Disease Musculoskeletal: Yes Back Injury, Chronic Back Pain, Fractures Endocrine: No HEENT: No Cancer: No Psychosocial: Yes (Alcohol dependence) Adverse Reaction/Blood Tranf: No (TITUS SNOWDEN APRN) Family Medical History History of - respiratory disease 03 FATHER (EMPHYSEMIA) GI Disease (TITUS SNOWDEN APRN) Physical Exam Vital Signs Vital Signs - First Documented (LION REED MD) Vital Signs Capillary Refill : Less Than 3 Seconds (TITUS SNOWDEN APRN) Height, Weight, BMI Height: 6'1.00" Weight: 211lbs. 0.5oz. 95.893542bd; 25.00 BMI Method:Stated General Appearance: No Apparent Distress, WD/WN Neck: Full Range of Motion, Normal Inspection Respiratory: No Accessory Muscle Use, No Respiratory Distress Cardiovascular: Regular Rate, Rhythm, Normal Peripheral Pulses Gastrointestinal: Non Tender, Soft Extremity: Normal Capillary Refill, Normal Inspection Neurologic/Psychiatric: Alert, Oriented x3 Skin: Normal Color, Warm/Dry (TITUS SNOWDEN APRN) Critical Care Note Critical Care Start Time: 23:00 Stop Time: 00:38 Total Time (minutes) 40 min critical care time in the evaluation and management of this patient with Afib RVR. Time includes management of afib with cardizem drip/titration. Fluid boluses; review of medical records, review and interpretations of labs/imaging/ekg's. Discussion with Admitting provider and consultations with cardiology. (LION REED MD) Progress/Results/Core Measures Results/Orders Lab Results Laboratory Tests Test 09/27/21 19:25 Range/Units White Blood Count 5.4 4.3-11.0 10^3/uL Red Blood Count 4.04 L 4.30-5.52 10^6/uL Hemoglobin 14.2 13.3-17.7 g/dL Hematocrit 43 40-54 % Mean Corpuscular Volume 105 H 80-99 fL Mean Corpuscular Hemoglobin 35 H 25-34 pg Mean Corpuscular Hemoglobin Concent 33 32-36 g/dL Red Cell Distribution Width 15.0 H 10.0-14.5 % Platelet Count 185 130-400 10^3/uL Mean Platelet Volume 11.4 9.0-12.2 fL Immature Granulocyte % (Auto) 0 % Neutrophils (%) (Auto) 59 42-75 % Lymphocytes (%) (Auto) 31 12-44 % Monocytes (%) (Auto) 7 0-12 % Eosinophils (%) (Auto) 2 0-10 % Basophils (%) (Auto) 1 0-10 % Neutrophils # (Auto) 3.2 1.8-7.8 10^3/uL Lymphocytes # (Auto) 1.7 1.0-4.0 10^3/uL Monocytes # (Auto) 0.4 0.0-1.0 10^3/uL Eosinophils # (Auto) 0.1 0.0-0.3 10^3/uL Basophils # (Auto) 0.0 0.0-0.1 10^3/uL Immature Granulocyte # (Auto) 0.0 0.0-0.1 10^3/uL Prothrombin Time 13.2 12.2-14.7 SEC INR Comment 1.0 0.8-1.4 Activated Partial Thromboplast Time 23 L 24-35 SEC Sodium Level 141 135-145 MMOL/L Potassium Level 3.1 L 3.6-5.0 MMOL/L Chloride Level 102 98-107 MMOL/L Carbon Dioxide Level 24 21-32 MMOL/L Anion Gap 15 H 5-14 MMOL/L Blood Urea Nitrogen 6 L 7-18 MG/DL Creatinine 0.76 0.60-1.30 MG/DL Estimat Glomerular Filtration Rate 100 BUN/Creatinine Ratio 8 Glucose Level 92 70-105 MG/DL Calcium Level 8.4 L 8.5-10.1 MG/DL Corrected Calcium 8.9 8.5-10.1 MG/DL Magnesium Level 1.9 1.6-2.4 MG/DL Total Bilirubin 0.5 0.1-1.0 MG/DL Aspartate Amino Transf (AST/SGOT) 149 H 5-34 U/L Alanine Aminotransferase (ALT/SGPT) 84 H 0-55 U/L Alkaline Phosphatase 71 40-136 U/L Myoglobin 27.0 10.0-92.0 NG/ML Troponin I < 0.028 <0.028 NG/ML B-Type Natriuretic Peptide 208.8 H <100.0 PG/ML Total Protein 6.5 6.4-8.2 GM/DL Albumin 3.4 3.2-4.5 GM/DL Serum Alcohol 143 H <10 MG/DL (LION REED MD) My Orders Orders - LION REED MD Ns Iv 1000 Ml (Sodium Chloride 0.9%) (09/28/21 00:00) Potassium Chloride (Tablet) (K Dur Table (09/28/21 00:00) (LION REED MD) Medications Given in ED Current Medications Medications Dose Ordered Sig/Yoseph Route Start Time Stop Time Status Last Admin Dose Admin Diltiazem HCl 10 mg ONCE ONCE IVP 09/27/21 22:00 09/27/21 22:03 DC 09/27/21 21:55 10 MG Metoprolol Tartrate 5 mg ONCE ONCE IV 09/27/21 20:45 09/27/21 20:46 DC 09/27/21 20:58 5 MG Metoprolol Tartrate 5 mg ONCE ONCE IV 09/27/21 21:15 09/27/21 21:16 DC 09/27/21 21:33 5 MG Ondansetron HCl 8 mg ONCE ONCE IVP 09/27/21 19:45 09/27/21 19:46 DC 09/27/21 20:27 8 MG Potassium Chloride 20 meq ONCE ONCE PO 09/28/21 00:00 09/28/21 00:01 DC 09/27/21 23:55 20 MEQ (LION REED MD) Vital Signs/I&O 09/27/21 09/27/21 19:17 19:17 Temp 36.4 Pulse 72 Resp 18 B/P (MAP) 129/92 (104) Pulse Ox 97 97 O2 Delivery Room Air Room Air (LION REED MD) Blood Pressure Mean: 104 Progress Progress Note #1: Time: 23:50 Progress Note Patient VS re-checked HR still afib with RVR at 120-135. He's on a cardizem drip at 10. Has had a 240mg PO cardizem as well as 2 doses of beta jennifer prior to drip. BP 89 systolic. 1 liter of LR has finished infusing. Will give some NS and 20meq potassium by mouth. Will continue to watch him and see if he rate controls with the second liter. His alcohol is noted to be 120's or so. Otherwise he is resting comfortably. Will continue to monitor. Hopefully d/c to home. Progress Note #2: Time: 00:26 Progress Note Notified by RN BP dropped to 77/61. Patient was sleeping at this time. We woke him up - re-positioned him and dropped the cardizem down to 5mg/hr. BP back to 91/74. HR still 120-135. O2 sats 91-95%. Will call for obs admission - will need to go to ICU on the drip. Progress Note #3: Time: 00:44 Progress Note Spoke with Dr Pink; he did not want Amiodarone started. Will leave the cardizem on. He stated to start him on Eliquis. Will give him 5mg now. Also advised to keep patient NPO. (LION REED MD) Initial ECG Impression Date: Sep 28, 2021 Initial ECG Impression Time: 19:17 Initial ECG Rate: 97 Initial ECG Rhythm: Normal Sinus Initial ECG Intervals NM 139 QRS 105 QTc 543 PVC's, no ST changes EKG : EKG Time: 00:51 Rate: 131 Rhythm: A Fib/Flutter Intervals NM QRS [address] segment change ECG Comparisson: Changed ECG Impression: Atrial Fibrillation w/RVR (LION REED MD) Diagnostic Imaging Diagonstic Imaging: Xray Plain Films/CT/US/NM/MRI: chest Comments [facility] [place], [place] NAME: AGUSTIN LOZA [facility] REC#: [id number] PT STATUS: REG ER : 1955 PHYSICIAN: TITUS SNOWDEN APRN ADMIT DATE: 09/27/21/ER Signed Date of Exam:09/27/21 CHEST 1 VIEW, AP/PA ONLY INDICATION: Chest pain. Time Of Exam: 7:47 PM Correlation is made with prior chest of 09/17/2021. FINDING: The heart size is normal. The pulmonary vascularity is unremarkable. The lungs are clear. No infiltrate, effusion or pneumothorax is detected. IMPRESSION: No acute cardiopulmonary process is detected. Dictated by: Dictated on workstation # [id number] Dict: 09/27/211945 Trans: 09/27/211950 CHASITY [id number] Interpreted by: MU WELLS MD Electronically signed by: MU WELLS MD 09/27/211950 Diagonstic Imaging: CT Comments [facility] [place] [place] NAME: AGUSTIN LOZA [facility] REC#: [id number] PT STATUS: REG ER : 1955 PHYSICIAN: TITUS SNOWDEN [employer] ADMIT DATE: 09/27/21/ER Signed Date of Exam:09/27/21 CT HEAD/CERVICAL SPINE WO PROCEDURE: CT head and CT cervical spine without contrast. TECHNIQUE: Multiple contiguous axial images were obtained through the brain and cervical spine without the use of intravenous contrast. Sagittal and coronal reformations through the cervical spine were then performed. Auto Exposure Controls were utilized during the CT exam to meet ALARA standards for radiation dose reduction. INDICATION: Fall with head and neck injury and chest pain. Correlation is made with prior CT from 08/31/2021. CT HEAD: There is some prominence of the ventricles and sulci, similar to prior exam. No sulcal effacement or midline shift is identified. No acute intra-axial or extra-axial hemorrhage is detected. Cisterns are patent. Visualized paranasal sinuses are clear. IMPRESSION: Stable noncontrast head CT. No acute intracranial process is detected. CT cervical spine: Reversal of normal cervical curvature is similar to prior study. There is multilevel degenerative disc disease with variable disc space narrowing and marginal spurring, greatest at C5-C6 and C6-C7 levels. No fractures are identified. Prevertebral tissues are within normal limits. Odontoid is intact. IMPRESSION: Cervical spondylosis. No acute bony abnormality is detected. Dictated by: Dictated on workstation # [id number] Dict: 09/27/211952 Trans: 09/27/211958 CHASITY [id number] Interpreted by: MU WELLS MD Electronically signed by: MU WELLS MD 09/27/211958 (LION REED MD) Departure Communication (Admissions) 2033-on arrival heart rate was in the 70s. Currently heart rate is 140 A. fib. Blood pressure 105/83. Lopressor 5mg ordered. (TITUS SNOWDEN APRN) Time/Spoke to Admitting Phy: 00:[address] Gao; ICU admission Time/Spoke to Consulting Phy: 00:[address] Pink (LION REED MD) Impression Primary Impression: Atrial fibrillation with rapid ventricular response Additional Impressions: Alcohol intoxication Qualified Codes: F10.920 - Alcohol use, unspecified with intoxication, uncomplicated Alcohol dependence Qualified Codes: F10.220 - Alcohol dependence with intoxication, uncomplicated Chest pain Qualified Codes: R07.9 - Chest pain, unspecified History of alcoholic cardiomyopathy Disposition: ADMITTED INPATIENT Condition: Critical Admissions Decision to Admit Reason: Admit from ER (General) Decision to Admit/Date: Sep 28, 2021 Time/Decision to Admit Time: 00:38 (LION REED MD) Departure-Patient Inst. Decision time for Depature: 22:16 (TITUS SNOWDEN APRN) Referrals: PATRICE KENDALL APRN (PCP/Family) Primary Care Physician Patient Instructions: Atrial Fibrillation and Atrial Flutter ED Scripts No Active Prescriptions or Reported Meds TITUS SNOWDEN APRN Sep 27, 2021 20:35 LION REED MD Sep 27, 2021 23:52
[2021-09-27] MEDS ORDERED: meTOprolol 5 MG/5 ML (LOPRESSOR) VIAL IV ONE ×2 (20:45→21:15)
[2021-09-27] MEDS ORDERED: LACTATED RINGERS 1,000 ML IV SCH (21:45)
[2021-09-27] MEDS: dilTIAZem DRIP PRE-MIX 125 ML IV SCH (22:30)
[2021-09-28] MEDS ORDERED: NS IV 1000 ML 1,000 ML IV SCH
[2021-09-28] MEDS ORDERED: KCL 20 MEQ TAB (K-DUR) PO ONE
[2021-09-28] MEDS ORDERED: APIXABAN 5 MG (ELIQUIS) TABLET PO ONE (01:00)
[2021-09-28] MEDS: dilTIAZem DRIP PRE-MIX 125 ML IV SCH (01:49)
[2021-09-28] MEDS ORDERED: dilTIAZem DRIP PRE-MIX 125 ML IV SCH (02:00)
--- NOTE | 2021-09-28 02:40 | Tele-ICU Progress Note ---
Progress Note 66M with afib, etoh, pancreatitis, asthma, CVA, CHF presented with CP since AM. Found to be in afib with RVR. Given metoprolol 5 mg IV x1 at 2044, repeated at 2129, then cardizem IV 10 mg IV at 2154 and PO 240 at 2214 followed by cardizem gtt. Shortly after (not documented in vitals) BP dropped into the 70s. Given 1L IVF and decreased cardizem gtt to 5. Current BP 127/97. Of note, patient was admitted for afib with chest pain 09/16-09/19, at which time he left AMA so that he could continue drinking. Did not have interest in quitting. On that admission, patient did have cardiac cath with mild nonobs tructive disease. NICM with EF 25-30%. - Cardiology consulted from ED - continue cardizem gtt - had been held for BP but RN found nitro patch from EMS, BP improved after removal and cardizem was just restarted. - reqceived elimeseret in ED - has some evidence of fluid overload with bibasilar crackles and sensation of chest fullness. Will defer diuresis due to borderline BP 105/81, just restarted cardizem a few minutes ago. Will give trial of bipap for preload reduction. - concern for ACS low given cath just 2 weeks ago for the same CP - monitor for evidence of withdrawals. Focused Exam Height, Weight, BMI Height: 6'1.00" Weight: 211lbs. 0.5oz. 95.191238ld; 27.95 BMI Method:Stated ASH MURRAY MD Sep 28, 2021 02:40
[2021-09-28] MEDS ORDERED: D5 1/2 NS 1000 ML IV SOLUTION 1,000 ML IV PRN (03:15)
[2021-09-28] MEDS ORDERED: LORazepam INJ 2 MG/ML (ATIVAN) VIAL IM/IV PRN (03:15)
[2021-09-28] MEDS ORDERED: SENNA W/DOCUSATE (SENOKOT S) TABLET PO PRN (03:15)
[2021-09-28] MEDS ORDERED: ONDANSETRON 4 MG (ZOFRAN) ORAL DISSOLVE TAB SL PRN (03:15)
[2021-09-28] MEDS ORDERED: 1/2 NS IV SOLUTION 1,000 ML IV PRN (03:15)
[2021-09-28] MEDS ORDERED: LORazepam INJ 2 MG/ML (ATIVAN) VIAL IV PRN (03:15)
[2021-09-28] MEDS ORDERED: ANTACID SUSP 30 ML UDC (MYLANTA) PO PRN (03:15)
[2021-09-28] MEDS ORDERED: LORazepam 1 MG (ATIVAN) TAB PO PRN (03:15)
[2021-09-28] MEDS ORDERED: ONDANSETRON 4 MG/2 ML (SDV) Z0FRAN IV PRN (03:15)
[2021-09-28 03:47] VITALS: BP 129/92
[2021-09-28] MEDS ORDERED: RT-ALBUTEROL SULF 2.5 MG/3 ML PRE-MIX VIAL INH PRN (04:00)
[2021-09-28 04:48] LABS: BASOPHILS # (AUTO) 0.1 10^3/uL (0.0-0.1); BASOPHILS % (AUTO) 1 % (0-10); EOSINOPHILS # (AUTO) 0.1 10^3/uL (0.0-0.3); EOSINOPHILS % (AUTO) 2 % (0-10); HEMATOCRIT 41 % (40-54); HEMOGLOBIN 13.4 g/dL (13.3-17.7); LYMPHOCYTES # (AUTO) 1.4 10^3/uL (1.0-4.0); LYMPHOCYTES % (AUTO) 27 % (12-44); MEAN CORPUSCULAR HEMOGLOBIN 35 pg (25-34); MEAN CORPUSCULAR HGB CONC 33 g/dL (32-36); MEAN CORPUSCULAR VOLUME 106 fL (80-99); MEAN PLATELET VOLUME 11.6 fL (9.0-12.2); MONOCYTES # (AUTO) 0.4 10^3/uL (0.0-1.0); MONOCYTES % (AUTO) 7 % (0-12); NEUTROPHILS # (AUTO) 3.3 10^3/uL (1.8-7.8); NEUTROPHILS % (AUTO) 63 % (42-75); PLATELET COUNT 168 10^3/uL (130-400); WHITE BLOOD COUNT 5.3 10^3/uL (4.3-11.0)
[2021-09-28 05:05] LABS: POTASSIUM 3.7 MMOL/L (3.6-5.0)
[2021-09-28 05:08] LABS: TOTAL PROTEIN 5.7 GM/DL (6.4-8.2)
[2021-09-28 05:09] LABS: BILIRUBIN,TOTAL 1.2 MG/DL (0.1-1.0)
[2021-09-28 05:11] LABS: CREATININE SERUM 0.72 MG/DL (0.60-1.30); PHOSPHORUS 3.3 MG/DL (2.3-4.7)
[2021-09-28 05:14] LABS: MAGNESIUM 1.7 MG/DL (1.6-2.4)
[2021-09-28] MEDS ORDERED: MAGNESIUM 1 GM/100 ML IVPB 100 ML IV SCH (06:00)
[2021-09-28] MEDS ORDERED: POTASSIUM CL 10MEQ/50ML IVPB 50 ML IV SCH (06:00)
[2021-09-28] MEDS ORDERED: KCL 20 MEQ TAB (K-DUR) PO SCH (06:00)
--- NOTE | 2021-09-28 06:56 | History & Physical-Hospitalist ---
History of Present Illness HPI/Chief Complaint CC: Afib with RVR and chest pain HPI: This is a 66 yr old WM alcoholic, known to us from past admission when he left AMA. He presented to the ER with chest pain. He had a fall at home. Intoxicated and not interested in alcohol cessation treatment. He reports now he is weak and needs therapy in order to return back home. He will be transferred to 4th floor on alcohol withdrawal protocol. He will be going down to 4th floor. Source: patient, RN/MD, old records Exam Limitations: no limitations Date Seen 09/28/21 Time Seen by a Provider: 10:00 Attending Physician Abby Gao Jessica J Aprn Referring Physician Date of Admission Sep 28, 2021 at 00:37 Home Medications & Allergies Home Medications Reviewed patient Home Medication Reconciliation performed by pharmacy medication reconciliations veterinary technician instructor and/or nursing. Patients Allergies have been reviewed. Allergies Allergies Coded Allergies Penicillins (Verified Allergy, Unknown, 10/17/13) morphine (Verified Allergy, Unknown, pt has received Hydromorphone in the past, 03/18/21) Past Sgxzcwk-Bksvql-Momvmi Hx Patient Social History Marrital Status: single Employed/Student: unemployed Tobacco Use?: Yes Tobacco type used: Cigarettes Smoking Status: Current Everyday Smoker Use of E-Cig and/or Vaping dev: No Substance use?: No Alcohol Use?: Yes Alcohol type: Hard Liquor Alcohol Frequency: Daily Pt feels they are or have been: No Immunizations Up To Date First/Initial COVID19 Vaccinat: YES Second COVID19 Vaccination Loc: YES Tetanus Booster (TDap): Unknown Hepatitis A: Yes Hepatitis B: Yes PED Vaccines UTD: No Date of Pneumonia Vaccine: Jan 06, 1970 Current Status Advance Directives: No Communicates: Verbally Primary Language: Monegasque Preferred Spoken Language: Monegasque Is interpretation needed?: No Past Medical History Surgeries: Cardiac, Orthopedic Asthma Atrial Fibrillation, High Cholesterol, Hypertension, Irregular Heartbeat Stroke Pancreatitis, Gall Bladder Disease Back Injury, Chronic Back Pain, Fractures Adverse Reaction/Blood Tranf: No Family Medical History History of - respiratory disease 03 FATHER (EMPHYSEMIA) GI Disease Review of Systems Constitutional: see HPI, dizziness, malaise, weakness EENTM: no symptoms reported Respiratory: no symptoms reported Cardiovascular: chest pain, palpitations Gastrointestinal: no symptoms reported Genitourinary: no symptoms reported Musculoskeletal: back pain, joint pain Skin: no symptoms reported Psychiatric/Neurological: Anxiety, Depressed, Headache All Other Systems Reviewed Negative Unless Noted: Yes Physical Exam Physical Exam Vital Signs Vital Signs - First Documented 09/28/21 09/28/21 01:00 03:47 O2 Flow Rate 2.00 FiO2 21 Capillary Refill : Less Than 3 Seconds Height, Weight, BMI Height: 6'1.00" Weight: 211lbs. 0.5oz. 95.336392fz; 27.95 BMI Method:Stated General Appearance: No Apparent Distress, Chronically ill Eyes: Right Eye Normal Inspection, Right Eye PERRL HEENT: PERRL/EOMI, Normal ENT Inspection, Pharynx Normal, Moist Mucous Membranes Neck: Full Range of Motion, Normal Inspection, Non Tender Respiratory: Chest Non Tender, Lungs Clear, Normal Breath Sounds, No Accessory Muscle Use, No Respiratory Distress Cardiovascular: Regular Rate, Rhythm, No Edema, No Gallop, No JVD, No Murmur, Normal Peripheral Pulses Gastrointestinal: Normal Bowel Sounds, No Organomegaly, No Pulsatile Mass, Non Tender, Soft Back: Normal Inspection, No CVA Tenderness, No Vertebral Tenderness Extremity: Normal Capillary Refill, Normal Inspection, Normal Range of Motion, Non Tender, No Calf Tenderness, No Pedal Edema Neurologic/Psychiatric: Alert, Oriented x3, No Motor/Sensory Deficits, Normal Mood/Affect, Motor Weakness (Lower extremities subtle) Skin: Normal Color, Warm/Dry Lymphatic: No Adenopathy Results Results/Procedures Labs Laboratory Tests 09/27/21 19:25 09/28/21 04:29 Patient resulted labs reviewed. Assessment/Plan Admission Diagnosis Assessment: Atrial fibrillation with rapid ventricular response Chest pain no evidence of ACS Severe alcoholism Alcohol withdrawal Falls Concussion Severe weakness Plan: PT and OT Transfer to fourth floor Cardiology appreciated Admission Status: Inpatient Order (span 2 midnights) Reason for Inpatient Admission: A. fib with RVR and weakness and alcoholism Clinical Quality Measures AMI/AHF: ASA po Prior to arrival: ABBY Jackman DO Sep 28, 2021 06:56
--- NOTE | 2021-09-28 10:18 | Consultation-Cardiology ---
HPI-Cardiology Cardiology Consultation Date of Consultation 09/28/21 Date of Admission Time Seen by Provider: 09:05 Indication: Chest pain, afib with RVR HPI Patient is a 66 y/o male with history of nonischemic cardiomyopathy, alcoholism, PAF, recurrent chest pain. Presented to the ER with complaints of chest pain and questionable syncope. Patient states he is unsure what happened, but somehow fell into the wall at his house last night, putting his head through the wall. C/o mild headache. Continues to complain of chest pain, worse with movement and palpation. Has had multiple admissions for recurrent chest pain. 66-year-old gentleman with extensive history as described below. Admitted for questionable syncope and injury to the head, he had paroxysmal atrial fibrillation. Has been noncompliant with his medication. I had a long discussion with the patient about compliance. We will restart Entresto and evaluate tolerance and response, restart Coreg, I am planning to evaluate CT of the chest due to the recurrent severe chest pain. Home Medications & Allergies Allergies: Coded Allergies: Penicillins (Verified Allergy, Unknown, 10/17/13) morphine (Verified Allergy, Unknown, pt has received Hydromorphone in the past, 03/18/21) Home Medication List Reviewed: Yes EVF-Bnjgzd-Vdzodh Hx Patient Social History Marital Status: single Smoking Status: Current Everyday Smoker Have you traveled recently?: No Alcohol Use?: Yes Immunizations Up To Date Tetanus Booster (TDap): Less than 5yrs Date of Pneumonia Vaccine: Jan 06, 1971 Past Medical History nonischemic cardiomyopathy PAF HTN Alcoholism Family Medical History Significant Family History: No Pertinent Family Hx, GI Disease Family History: History of - respiratory disease 03 FATHER (EMPHYSEMIA) Review of Systems-General Review of Systems Constitutional: see HPI, malaise, weakness EENTM: see HPI; No blurred vision, No double vision Respiratory: see HPI; No cough; dyspnea on exertion, short of breath Cardiovascular: see HPI, chest pain, edema, syncope; No vascular heart diseas Gastrointestinal: abdominal pain (epigastric) Musculoskeletal: no symptoms reported Skin: no symptoms reported Psychiatric/Neurological: No Symptoms Reported Reviewed Test Results Reviewed Test Results Lab Laboratory Tests 09/27/21 19:25: White Blood Count 5.4, Red Blood Count 4.04L, Hemoglobin 14.2, Hematocrit 43, Mean Corpuscular Volume 105H, Mean Corpuscular Hemoglobin 35H, Mean Corpuscular Hemoglobin Concent 33, Red Cell Distribution Width 15.0H, Platelet Count 185, Mean Platelet Volume 11.4, Immature Granulocyte % (Auto) 0, Neutrophils (%) (Auto) 59, Lymphocytes (%) (Auto) 31, Monocytes (%) (Auto) 7, Eosinophils (%) (Auto) 2, Basophils (%) (Auto) 1, Neutrophils # (Auto) 3.2, Lymphocytes # (Auto) 1.7, Monocytes # (Auto) 0.4, Eosinophils # (Auto) 0.1, Basophils # (Auto) 0.0, Immature Granulocyte # (Auto) 0.0, Prothrombin Time 13.2, INR Comment 1.0, Activated Partial Thromboplast Time 23L, Sodium Level 141, Potassium Level 3.1L, Chloride Level 102, Carbon Dioxide Level 24, Anion Gap 15H, Blood Urea Nitrogen 6L, Creatinine 0.76, Estimat Glomerular Filtration Rate 100, BUN/Creatinine Ratio 8, Glucose Level 92, Calcium Level 8.4L, Corrected Calcium 8.9, Magnesium Level 1.9, Total Bilirubin 0.5, Aspartate Amino Transf (AST/SGOT) 149H, Alanine Aminotransferase (ALT/SGPT) 84H, Alkaline Phosphatase 71, Myoglobin 27.0, Troponin I < 0.028, B-Type Natriuretic Peptide 208.8H, Total Protein 6.5, Albumin 3.4, Serum Alcohol 143H 09/28/21 04:29: White Blood Count 5.3, Red Blood Count 3.84L, Hemoglobin 13.4, Hematocrit 41, Mean Corpuscular Volume 106H, Mean Corpuscular Hemoglobin 35H, Mean Corpuscular Hemoglobin Concent 33, Red Cell Distribution Width 15.1H, Platelet Count 168, Mean Platelet Volume 11.6, Immature Granulocyte % (Auto) 0, Neutrophils (%) (Auto) 63, Lymphocytes (%) (Auto) 27, Monocytes (%) (Auto) 7, Eosinophils (%) (Auto) 2, Basophils (%) (Auto) 1, Neutrophils # (Auto) 3.3, Lymphocytes # (Auto) 1.4, Monocytes # (Auto) 0.4, Eosinophils # (Auto) 0.1, Basophils # (Auto) 0.1, Immature Granulocyte # (Auto) 0.0, Sodium Level 140, Potassium Level 3.7, Chloride Level 105, Carbon Dioxide Level 22, Anion Gap 13, Blood Urea Nitrogen 6L, Creatinine 0.72, Estimat Glomerular Filtration Rate 101, BUN/Creatinine Ratio 8, Glucose Level 98, Calcium Level 8.0L, Corrected Calcium 8.8, Magnesium Level 1.7, Total Bilirubin 1.2H, Aspartate Amino Transf (AST/SGOT) 116H, Alanine Aminotransferase (ALT/SGPT) 73H, Alkaline Phosphatase 60, Total Protein 5.7L, Albumin 3.0L, Phosphorus Level 3.3 ECG Impression ECG Initial ECG Rhythm: A Fib/Flutter Initial ECG Impression: Atrial Fibrillation w/RVR Physical Exam Physical Exam Vital Signs Vital Signs - First Documented 09/28/21 09/28/21 01:00 03:47 O2 Flow Rate 2.00 FiO2 21 Capillary Refill : Less Than 3 Seconds Height, Weight, BMI Height: 6'1.00" Weight: 211lbs. 0.5oz. [id number]; 27.95 BMI Method:Stated General Appearance: No Apparent Distress, WD/WN Neck: Full Range of Motion, Normal Inspection Respiratory: No Accessory Muscle Use, No Respiratory Distress Cardiovascular: Regular Rate, Rhythm, Normal Peripheral Pulses Gastrointestinal: Non Tender, Soft Extremity: Normal Capillary Refill, Normal Inspection Neurologic/Psychiatric: Alert, Oriented x3 Skin: Normal Color, Warm/Dry A/P-Cardiology Admission Diagnosis Chest pain PAF CHF Alcoholism Assessment/Plan Severe chest pain, recurrent episode of chest pain, underwent cardiac catheterization by Dr. Pink in June 2021 reporting mild coronary artery disease nonobstructive disease. Repeat cardiac catheterization was done on September 18, 2021 due to severe chest pain and severe deterioration in the left ventricular function. Mild coronary artery disease nonobstructive disease Elevated left ventricular end-diastolic pressure. Chest pain reproducible with palpation. I will evaluate CTA chest. Syncope, multiple episodes over the past few months. Associated with severe chest pain. Unknown etiology Could be vasovagal or secondary to arrhythmia. Underlying malignant arrhythmia such as ventricular tachycardia cannot be excluded. Currently back in sinus rhythm. Paroxysmal atrial fibrillation, presented with AFib with RVR, converted to sinus rhythm on Cardizem drip. Had been maintained on Coreg 3.125mg BID and Eliquis 5mg BID, reports noncompliance at home, I will restart medications I will restart Entresto and evaluate tolerance and response History of Frequent premature ventricular contractions Congestive heart failure, chronic compensated left ventricular systolic dysfunction, nonischemic cardiomyopathy 2D echocardiogram done on September 17, 2021 showing dilated left ventricle with diffuse left ventricular hypokinesia with segmental wall motion abnormality ejection fraction 25 to 30%, PA pressure 30 to 35 mmHg Patient was started on beta-blockers, Entresto on last visit, has been noncompliant at home. Will restart medications. Refused life vest on last admission. [id number] score of 2, restarting Eliquis Thoracic aortic aneurysm, he had an aortic root measuring 4 cm on an echocardiogram at an outside hospital. Continue to monitor closely, planning to evaluate CTA chest Hypertension, monitor blood pressure after the medication changes Elevated liver enzymes, could be secondary to alcoholic hepatitis. Dementia, patient has significant memory loss. Tobaccoism, educated on smoking cessation Alcoholism. Started on thiamine, alcohol withdrawal precautions Hx pancreatitis Gastroesophageal reflux disease. Thank you for allowing us to participate in the management of Mr. Phan. This is Debbie Salinas PA-C, as a scribe for Dr. Irwin. Patient was seen and evaluated with Debbie, I interviewed and examined the patient, discussed compliance with medication Cardizem drip was discontinued, will restart Coreg and Entresto and evaluate tolerance and response I discussed the management plan with Dr. Atkinson, planning to start physical therapy Continue with withdrawal protocol, educated on avoiding alcohol Clinical Quality Measures AMI/AHF: ASA po Prior to arrival: No DEBBIE STEINBERG Sep 28, 2021 10:18 AVRIL IRWIN MD Sep 28, 2021 12:39
[2021-09-28] MEDS ORDERED: IOHEXOL 350 MG/ML 100 ML (OMNIPAQUE 350) VIAL IV ONE (10:45)
[2021-09-28] MEDS ORDERED: NS 100 ML (IVPB) BAG IV ONE (10:45)
[2021-09-28] MEDS ORDERED: CATHETER FLUSH 10 ML SYR IV PRN (10:45)
[2021-09-28] MEDS ORDERED: HOLD METFORMIN - RECEIVED CONTRAST 20 ML VIAL IV SCH (10:45)
--- NOTE | 2021-09-28 11:13 | Diagnostic Imaging Report ---
PROCEDURE: CT angiography of the chest with contrast. TECHNIQUE: Multiple contiguous axial images were obtained through the chest after uneventful bolus administration of intravenous contrast. 3D reconstructed CTA MIP acquisitions were also performed. Auto Exposure Controls were utilized during the CT exam to meet ALARA standards for radiation dose reduction. INDICATION: Chest pain. CORRELATION is made with prior CT chest from 04/28/2021. Evaluation of the pulmonary arterial system is without evidence of thromboembolism. No filling defects are seen within central, lobar or segmental branches. The thoracic aorta is normal caliber. No dissection is identified. There is atherosclerotic calcifications within the coronary arterial system. No pericardial or pleural fluid is identified. A right lower lobe nodule is stable at approximately 6 mm. There is some atelectasis or scarring in the bilateral lower lobes. Upper abdomen shows diffuse low density consistent with hepatic steatosis. Lesions in the left hepatic lobe appear to be stable. IMPRESSION: 1. No evidence of pulmonary embolism or acute aortic disease. 2. Stable noncalcified right lower lobe pulmonary nodule when compared with the study from 04/28/2021. 3. Bibasilar subsegmental atelectasis or scarring. 4. Hepatic steatosis and stable left lobe hepatic lesions. Dictated by: Dictated on workstation # [id number]
[2021-09-28] MEDS: FOLIC ACID 1 MG TAB PO SCH (11:32)
[2021-09-28] MEDS: THIAMINE 100 MG (VITAMIN B-1) TAB PO SCH (11:32)
[2021-09-28] MEDS: CYANOCOBALAMIN 1,000 MCG (VITAMIN B-12) TABLET PO SCH (11:32)
[2021-09-28] MEDS: MULTIVIT W/MINERALS TAB (THERAGRAN M) PO SCH (11:33)
[2021-09-28] MEDS: SACUBITRIL/VALSARTAN 24/26 MG (ENTRESTO) TABLET PO SCH ×2 (11:33→20:14)
--- NOTE | 2021-09-28 11:57 | Occupational Therapy Eval ---
OT Evaluation-General/PLF Medical Diagnosis Admission Date Sep 28, 2021 at 00:37 Medical Diagnosis: chest pain, afib with RVR, alcohol intox Onset Date: Sep 28, 2021 Therapy Diagnosis Therapy Diagnosis: decreased ADL status Height/Weight Height (Feet): 6 Height (Inches): 1.00 Weight (Pounds): 211 Weight (Ounces): 0.5 Precautions Precautions/Isolations: Fall Prevention, Standard Precautions Referral Physician: Murray Referral Reason: Evaluation/Treatment Medical History Pertinent Medical History: Alcoholism, CVA, Fractures Additional Medical History asthma, afib, CVA, pancreatitis, back injury, fractures, alcoholism Current History EMS from home c/o all day chest pain and fall with hitting his head Social History Home: Apartment (4th floor) Current Living Status: Alone Entry Into Home: Elevator ADL-Prior Level of Function SCALE: Activities may be completed with or without assistive devices. 2-Kueznyihqw-zgbghjz completes the activity by him/herself with no assistance from a helper. 5-Set-up or Clean-up Assistance-helper sets up or cleans up; patient completes activity. [place] assists only prior to or following the activity. 4-Supervision or Touching Assistance-helper provides verbal cues and/or touching/steadying and/or contact guard assistance as patient completes a ctivity. Assistance may be provided throughout the activity or intermittently. 3-Partial/Moderate Assistance-helper does LESS THAN HALF the effort. [place] lifts, holds or supports trunk or limbs, but provides less than half the effort. 2-Substantial/Maximal Assistance-helper does MORE THAN HALF the effort. [place] lifts or holds trunk or limbs and provides more than half the effort. 2-Sbngmnoxd-wtfchr does ALL the effort. Patient does none of the effort to complete the activity. Or, the assistance of 2 or more helpers is required for the patient to complete the activity. If activity was not attempted, code reason: 7-Patient Refused. 9-Not Applicable-not attempted and the patient did not perform the activity before the current illness, exacerbation or injury. 10-Not Attempted due to Environmental Limitations-(lack of equipment, weather restraints, etc.). 88-Not Attempted due to Medical Conditions or Safety Concerns. ADL PLOF Comments Pt reports IND with ADLs and functional mobility at [facility], he has a walk in shower. Pt indicates he does not have a SC, but is able to obtain one if needed. Self Care: Independent Functional Cognition: Independent DME/Equipment Comments Cane OT Current Status Subjective Pt laying in bed, reluctantly agrees to OT tx at bed level only. Pt indicates he is unable to stand on his own right now but refuses to attempt to get out of bed, even with encouragement. Mental Status/Objective Patient Orientation: Person, Place, Situation Attachments: Telemetry Current Upper Extremity ROM Shoulder movements not tested due to pt refusal WFL at elbows, wrists, hands. Upper Extremity Strength unable to formally assess due to pt refusal ADL-Treatment Eating (QC): 6 (per pt report) Oral Hygiene (QC): 5 (per clinical judgment.) Lower Body Dressing (QC): 7 On/Off Footwear (QC): 7 Toileting Hygiene (QC): 7 Other Treatments Pt laying in bed, provided information about PLOF And home set up. Pt indicates he is unable to get out of bed or stand up right now. OT encouraged pt to attempt to sit EOB, but pt adamantly refused all OOB/EOB activities. Pt also declined all ADLs. Pt only agreeable to bed level exercises from elbow down, refuses any shoulder movement due to c/o increasing chest pain. Pt completed x15 reps elbow flexion/extension, wrist flexion/extension, and finger flexion/extension. Pt states he will attempt more tomorrow if he feels better. Post tx, pt in bed, call light in reach and all needs met. Education OT Patient Education: Correct positioning, Energy conservation, Modified ADL techniques, Progress toward Goal/Update tx plan, Purpose of tx/functional activities, Rehab process Teaching Recipient: Patient Teaching Methods: Discussion Response to Teaching: Verbalize Understanding OT Pathology Collector Goals Pathology Collector Goals Time Frame: Oct 07, 2021 Eating (QC): 6 Oral Hygiene (QC): 6 Toileting Hygiene (QC): 4 Shower/Bathe Self (QC): 4 Upper Body Dressing (QC): 5 Lower Body Dressing (QC): 4 On/Off Footwear (QC): 4 Additional Goals: 1-Demonstrate ADL Tasks, 2-Verbalize Understanding, 3- ImproveStrength/Giovanni 1=Demonstrate adherence to instructed precautions during ADL tasks. 2=Patient will verbalize/demonstrate understanding of assistive devices/modifications for ADL. 3=Patient will improve strength/tolerance for activity to enable patient to perform ADL's. OT Education/Plan Problem List/Assessment Assessment: Decreased Activ Tolerance, Decreased UE Strength, Impaired Funct Balance, Impaired I ADL's, Impaired Self-Care Skills Discharge Recommendations Plan/Recommendations: Continue POC Treatment Plan/Plan of Care Patient would benefit from OT for education, treatment and training to promote independence in ADL's, mobility, safety and/or upper extremity function for ADL's. Plan of Care: ADL Retraining, Functional Mobility, UE Funct Exercise/Act Treatment Duration: Oct 07, 2021 Frequency: 3 times per week (3-5 times per week) Agreement: Yes Rehab Potential: Guarded Time/GCodes Start Time: 11:13 Stop Time: 11:24 Total Time Billed (hr/min): 11 Billed Treatment Time 1, AGUSTÍN REDMAN OT Sep 28, 2021 11:57
[2021-09-28] MEDS: APIXABAN 5 MG (ELIQUIS) TABLET PO SCH ×2 (13:16→20:14)
--- NOTE | 2021-09-28 14:30 | Physical Therapy Evaluation ---
PT Evaluation-General Medical Diagnosis Admission Date Sep 28, 2021 at 00:37 Medical Diagnosis: chest pain, afib with RVR, alcohol intox Onset Date: Sep 28, 2021 Therapy Diagnosis Therapy Diagnosis: impaired mobility; weakness Height/Weight Height (Feet): 6 Height (Inches): 1.00 Weight (Pounds): 211 Weight (Ounces): 0.5 Precautions Precautions/Isolations: Fall Prevention, Standard Precautions Weight Bear Status Full Weight Bearing Full Weight Bearing Referral Physician: Murray Reason for Referral: Evaluation/Treatment Medical History Pertinent Medical History: Alcoholism, CVA, Fractures Additional Medical History chronic low back pain; syncope; Right hip pain DJD, (R)LE weakness post CVA Current History Pt has poor strength in the LEs following a recent fall with resultant concussion. Social History Home: Apartment (4th floor) Current Living Status: Alone Entry Into Home: Elevator Prior Prior Level of Function SCALE: Activities may be completed with or without assistive devices. 4-Kfmpxkctby-jlahojx completes the activity by him/herself with no assistance from a helper. 5-Set-up or Clean-up Assistance-helper sets up or cleans up; patient completes activity. [place] assists only prior to or following the activity. 4-Supervision or Touching Assistance-helper provides verbal cues and/or touching/steadying and/or contact guard assistance as patient completes activity. Assistance may be provided throughout the activity or intermittently. 3-Partial/Moderate Assistance-helper does LESS THAN HALF the effort. [place] lifts, holds or supports trunk or limbs, but provides less than half the effort. 2-Substantial/Maximal Assistance-helper does MORE THAN HALF the effort. [place] lifts or holds trunk or limbs and provides more than half the effort. 1-Nwxiqkzft-ywgygy does ALL the effort. Patient does none of the effort to complete the activity. Or, the assistance of 2 or more helpers is required for the patient to complete the activity. If activity was not attempted, code reason: 7-Patient Refused. 9-Not Applicable-not attempted and the patient did not perform the activity before the current illness, exacerbation or injury. 10-Not Attempted due to Environmental Limitations-(lack of equipment, weather restraints, etc.). 88-Not Attempted due to Medical Conditions or Safety Concerns. Bed Mobility: 6 Transfers (B,C,W/C): 6 Gait: 6 Stairs: 6 Indoor Mobility (Ambulation): Independent Stairs: Independent Prior Device Use: cane PT Evaluation-Current Subjective Pt admitted via EMS on 09/27/21 secondary to falling at home. Pt reports he had chest pain and then fainted. He struck his head on the wall. Objective Patient Orientation: Person, Place, Time, Situation ROM/Strength ROM Lower Extremities WFL Strength Lower Extremities (R) hip flex 1/5, hip ext 1/5, quads 1/5, ankle DF 1/5 (L) hip flex 2/5, hip ext 2/5, quads 3/5, ankle 2/5 Sensory Vision: Functional Hearing: Functional Sensation Right Upper Extremit: Intact Sensation Left Upper Extremity: Intact Sensation Right Lower Extremit: Impaired Sensation Left Lower Extremity: Impaired Sensation Lower Extremities Pt is numb from mid thigh to feet (B) with right being more impaired than the left. He expresses no feeling to hot/cold, deep pressure, or pin prick below the knee on either LE. Transfers Roll Left to Right (QC): 6 Sit to Lying (QC): 6 Lying to Sitting/Side of Bed(Q: 6 Sit to Stand (QC): 3 Chair/Tyh-gn-Aksbx Xfer(QC): 2 Toilet Transfer (QC): 2 Pt transferred bed to commode with Min A by using bed rail and arm rest on commode. Transfer back to bed using a FWW. Needed Moderate assist to stand and the right leg did collapse require Max A to regain upright with knees fully extended. Gait Does the Patient Walk?: Yes Mode of Locomotion: Walk Anticipated Mode of Locomotion: Walk Walk 10 feet (QC): 88 Walk 50 ft with 2 Turns(QC): 88 Walk 150 ft (QC): 88 Distance: 0 Gait Assistive Device: FWW Comments/Gait Description Not safe for ambulation with a single person assist at time of evaluation. LEs lack proprioception and strength for safe gait. Balance Sitting Static: Good Sitting Dynamic: Good Standing Static: Poor Standing Dynamic: Poor Assessment/Needs Pt has significant loss of sensation and strength in (B) LEs which has resulted in impaired transfers and inability to walk. At this time patient will benefit from LE exercise and progressive mobility training to promote return to home. Rehab Potential: Fair Post Rehab Potential-Barriers: alcoholism, chronic non compliance with physical health care PT Longterm Goals Structural Shop Helper Goals PT Structural Shop Helper Goals Time Frame: Oct 05, 2021 Roll Left & Right (QC): 6 Sit to Lying (QC): 6 Lying-Sitting on Side/Bed(QC): 6 Sit to Stand (QC): 6 Chair/Wki-ra-Ovgmu Xfer(QC): 4 Toilet Transfer (QC): 4 Does the Patient Walk: Yes Walk 10 feet (QC): 4 Walk 50ft with 2 Turns (QC): 4 Walk 150 ft (QC): 88 PT Plan Problem List Problem List: Activity Tolerance, Functional Strength, Balance, Gait, Transfer, Bed Mobility Treatment/Plan Treatment Plan: Continue Plan of Care Treatment Plan: Bed Mobility, Education, Functional Activity Giovanni, Functional Strength, Gait, Therapeutic Exercise, Transfers Treatment Duration: Oct 05, 2021 Frequency: 11 times per week Estimated Hrs Per Day: .25 hour per day Discharge Recommendations Plan Perform LE exercise and gait training to promote return to home at [place]. Therapy Discharge Recommendati: Post Acute PT Target Placement ARU vs home with home health depending on progress over the next several days. Time/GCodes Time In: 1315 Time Out: 1350 Total Billed Treatment Time: 35 Total Billed Treatment visit, evaluation high complexty 35 min SACHI WEBSTER PT Sep 28, 2021 14:30
[2021-09-29 05:32] LABS: BASOPHILS % (AUTO) 1 % (0-10); EOSINOPHILS # (AUTO) 0.1 10^3/uL (0.0-0.3); EOSINOPHILS % (AUTO) 2 % (0-10); HEMATOCRIT 41 % (40-54); HEMOGLOBIN 13.6 g/dL (13.3-17.7); LYMPHOCYTES # (AUTO) 1.3 10^3/uL (1.0-4.0); LYMPHOCYTES % (AUTO) 24 % (12-44); MEAN CORPUSCULAR HEMOGLOBIN 35 pg (25-34); MEAN CORPUSCULAR HGB CONC 33 g/dL (32-36); MEAN CORPUSCULAR VOLUME 106 fL (80-99); MEAN PLATELET VOLUME 11.7 fL (9.0-12.2); MONOCYTES # (AUTO) 0.4 10^3/uL (0.0-1.0); MONOCYTES % (AUTO) 7 % (0-12); NEUTROPHILS # (AUTO) 3.5 10^3/uL (1.8-7.8); NEUTROPHILS % (AUTO) 66 % (42-75); PLATELET COUNT 161 10^3/uL (130-400); WHITE BLOOD COUNT 5.3 10^3/uL (4.3-11.0)
[2021-09-29 05:44] LABS: POTASSIUM 3.8 MMOL/L (3.6-5.0)
[2021-09-29 05:45] LABS: CALCIUM 8.4 MG/DL (8.5-10.1)
[2021-09-29 05:46] LABS: TOTAL PROTEIN 5.7 GM/DL (6.4-8.2)
[2021-09-29 05:48] LABS: BILIRUBIN,TOTAL 0.8 MG/DL (0.1-1.0)
[2021-09-29 05:50] LABS: CREATININE SERUM 0.75 MG/DL (0.60-1.30)
[2021-09-29 05:53] LABS: MAGNESIUM 1.8 MG/DL (1.6-2.4)
[2021-09-29] MEDS: MULTIVIT W/MINERALS TAB (THERAGRAN M) PO SCH (05:57)
[2021-09-29] MEDS: THIAMINE 100 MG (VITAMIN B-1) TAB PO SCH (05:57)
[2021-09-29] MEDS: CYANOCOBALAMIN 1,000 MCG (VITAMIN B-12) TABLET PO SCH (05:57)
--- NOTE | 2021-09-29 06:08 | Progress Note - Hospitalist ---
Subjective HPI/CC On Admission Date Seen by Provider: Sep 29, 2021 Time Seen by Provider: 10:30 CC: Afib with RVR and chest pain HPI: This is a 66 yr old WM alcoholic, known to us from past admission when he left AMA. He presented to the ER with chest pain. He had a fall at home. Intoxicated and not interested in alcohol cessation treatment. He reports now he is weak and needs therapy in order to return back home. He will be transferred to 4th floor on alcohol withdrawal protocol. He will be going down to 4th floor. Subjective/Events-last exam Patient complaining about a lot of things Cannot understand why he cannot walk Patient has severe alcoholism and continues to drink heavily and that over time is caused muscle weakness and just generalized debility Patient refuses to admit he has alcohol problem PT and OT will be consulted He is requesting a cane because he uses one at home Nothing to suggest neurological dysfunction Review of Systems General: Fatigue, Malaise Objective Exam Vital Signs Vital Signs Date Time Temp Pulse Resp B/P (MAP) Pulse Ox O2 Delivery O2 Flow Rate FiO2 09/30/21 04:10 36.0 67 20 114/72 (86) 93 Room Air 09/28/21 03:47 21 09/28/21 01:00 2.00 Capillary Refill : Less Than 3 Seconds General Appearance: No Apparent Distress, WD/WN, Chronically ill Results/Procedures Lab Laboratory Tests 09/29/21 05:16 Patient resulted labs reviewed. Assessment/Plan Assessment and Plan Assess & Plan/Chief Complaint Assessment: Chest pain no evidence of ACS A. fib with RVR Alcoholism with alcohol withdrawal pending Severe weakness due to alcoholism Plan: PT and OT Supportive care Clinical Quality Measures AMI/AHF: ASA po Prior to arrival: BHARGAV Jackman DO Sep 29, 2021 06:08
[2021-09-29 08:00] VITALS: BP 116/76
--- NOTE | 2021-09-29 08:35 | Cardiology Progress Note ---
Subjective Date Seen by Provider: Sep 29, 2021 Time Seen by Provider: 08:33 Subjective/Events-last exam Patient is laying down in bed, feeling better today. No new complaint Review of Systems General: No Chills, No Night Sweats, No Fatigue, No Malaise, No Appetite, No Other HEENT: No Head Aches, No Visual Changes, No Eye Pain, No Ear Pain, No Dysphasia, No Sinus Congestion, No Post Nasal Drip, No Sore Throat, No Other Pulmonary: No Dyspnea, No Cough, No Pleuritic Chest Pain, No Other Cardiovascular: No: Chest Pain, Palpitations, Orthopnea, Paroxysmal Noc. Dyspnea, Edema, Lt Headedness, Other Objective-Cardiology Exam Last Set of Vital Signs Vital Signs 09/28/21 09/28/21 09/29/21 01:00 03:47 08:00 Temp 36.2 Pulse 65 Resp 18 B/P (MAP) 116/76 (89) Pulse Ox 96 O2 Delivery Room Air O2 Flow Rate 2.00 FiO2 21 I&O Intake and Output 09/29/21 00:00 Intake Total 1620 ml Output Total 1000 ml Balance 620 ml Intake Oral 1620 ml Output Urine Total 1000 ml # Bowel Movements 1 Daily Weight Change No General: Alert, Oriented X3, Cooperative HEENT: Atraumatic, PERRLA Neck: Supple, No JVD, No Thyromegaly Lungs: Clear to Auscultation, Normal Air Movement Heart: Regular Rate, Normal S1, Normal S2, No Murmurs Abdomen: Normal Bowel Sounds, Soft, No Tenderness, No Hepatosplenomegaly, No Masses Extremities: No Clubbing, No Cyanosis, No Edema, Normal Pulses, No Tenderness/Swelling Skin: No Rashes, No Breakdown, No Significant Lesion Neuro: Normal Gait, Normal Speech, Strength at 5/5 X4 Ext, Normal Tone, Sensation Intact Psych/Mental Status: Mental Status NL, Mood NL Results Lab Laboratory Tests 09/29/21 05:16 A/P-Cardiology Admission Diagnosis Chest pain PAF CHF Alcoholism Assessment/Plan Severe chest pain, recurrent episode of chest pain, underwent cardiac catheterization by Dr. Pink in June 2021 reporting mild coronary artery disease nonobstructive disease. Repeat cardiac catheterization was done on September 18, 2021 due to severe chest pain and severe deterioration in the left ventricular function. Mild coronary artery disease nonobstructive disease Elevated left ventricular end-diastolic pressure. Chest pain reproducible with palpation. Noncardiac pain Syncope, multiple episodes over the past few months. Associated with severe chest pain. Unknown etiology Could be vasovagal or secondary to arrhythmia. Underlying malignant arrhythmia such as ventricular tachycardia cannot be excluded. Currently back in sinus rhythm. Paroxysmal atrial fibrillation, presented with AFib with RVR, converted to sinus rhythm on Cardizem drip. Had been maintained on Coreg 3.125mg BID and Eliquis 5mg BID, reports noncompli ance at home, medication were restarted. History of Frequent premature ventricular contractions Congestive heart failure, chronic compensated left ventricular systolic dysfunction, nonischemic cardiomyopathy 2D echocardiogram done on September 17, 2021 showing dilated left ventricle with diffuse left ventricular hypokinesia with segmental wall motion abnormality ejection fraction 25 to 30%, PA pressure 30 to 35 mmHg Patient was started on beta-blockers, Entresto on last visit, has been noncompliant at home. Will restart medications. Refused life vest on last admission. [id number] score of 2, restarting Eliquis Thoracic aortic aneurysm, he had an aortic root measuring 4 cm on an echocardiog tea at an outside hospital. Continue to monitor closely, planning to evaluate CTA chest Hypertension, monitor blood pressure after the medication changes Elevated liver enzymes, could be secondary to alcoholic hepatitis. Dementia, patient has significant memory loss. Tobaccoism, educated on smoking cessation Alcoholism. Started on thiamine, alcohol withdrawal precautions Hx pancreatitis Gastroesophageal reflux disease. AVRIL LEAL MD Sep 29, 2021 08:35
[2021-09-29] MEDS: APIXABAN 5 MG (ELIQUIS) TABLET PO SCH ×2 (09:43→20:26)
[2021-09-29] MEDS: SACUBITRIL/VALSARTAN 24/26 MG (ENTRESTO) TABLET PO SCH ×2 (09:43→20:26)
[2021-09-29] MEDS: FOLIC ACID 1 MG TAB PO SCH (09:43)
--- NOTE | 2021-09-29 10:54 | Occupational Ther Daily Note ---
OT Current Status-Daily Note Subjective Pt alert, lying in bed. Pt c/o not being able to sleep in hospital and is frustrated to have to do anything after he is comfortable in bed. Pt does agrees to participate in OT session though does not want to get OOB. Mental Status/Objective Patient Orientation: Person, Place, Time, Situation Attachments: IV ADL-Treatment Therapy Code Descriptions/Definitions Functional Warriors Mark Measure: 0=Not Assessed/NA 4=Minimal Assistance 1=Total Assistance 5=Supervision or Setup 2=Maximal Assistance 6=Modified Warriors Mark 3=Moderate Assistance 7=Complete IndependenceSCALE: Activities may be completed with or without assistive devices. 9-Mndoajprxt-qwivbew completes the activity by him/herself with no assistance from a helper. 5-Set-up or Clean-up Assistance-helper sets up or cleans up; patient completes activity. [place] assists only prior to or following the activity. 4-Supervision or Touching Assistance-helper provides verbal cues and/or touching/steadying and/or contact guard assistance as patient completes activity. Assistance may be provided throughout the activity or intermittently. 3-Partial/Moderate Assistance-helper does LESS THAN HALF the effort. [place] lifts, holds or supports trunk or limbs, but provides less than half the effort. 2-Substantial/Maximal Assistance-helper does MORE THAN HALF the effort. [place] lifts or holds trunk or limbs and provides more than half the effort. 7-Gvjnidibf-rcvlzh does ALL the effort. Patient does none of the effort to complete the activity. Or, the assistance of 2 or more helpers is required for the patient to complete the activity. If activity was not attempted, code reason: 7-Patient Refused. 9-Not Applicable-not attempted and the patient did not perform the activity before the current illness, exacerbation or injury. 10-Not Attempted due to Environmental Limitations-(lack of equipment, weather restraints, etc.). 88-Not Attempted due to Medical Conditions or Safety Concerns. Other Treatment Pt completed 4 B UE exercises against gravity while in supine. Skilled instructions given for correct technique of each exercise. Pt stated that his R shldr was hurting him at end of exercises. Completed 1 set 10 reps of shldr flex/ext, shldr abd/add, tricep ext and front punches. After session, pt lying in bed with call light/phone in reach. All needs met in room. OT [employer] Goals [employer] Goals Time Frame: Oct 07, 2021 Eating (QC): 6 Oral Hygiene (QC): 6 Toileting Hygiene (QC): 4 Shower/Bathe Self (QC): 4 Upper Body Dressing (QC): 5 Lower Body Dressing (QC): 4 On/Off Footwear (QC): 4 Additional Goals: 1-Demonstrate ADL Tasks, 2-Verbalize Understanding, 3- ImproveStrength/Giovanni 1=Demonstrate adherence to instructed precautions during ADL tasks. 2=Patient will verbalize/demonstrate understanding of assistive devices/modifications for ADL. 3=Patient will improve strength/tolerance for activity to enable patient to perform ADL's. OT Education/Plan Problem List/Assessment Assessment: Decreased Activ Tolerance, Decreased UE Strength, Impaired Self-Care Skills Discharge Recommendations Plan/Recommendations: Continue POC Treatment Plan/Plan of Care Patient would benefit from OT for education, treatment and training to promote independence in ADL's, mobility, safety and/or upper extremity function for ADL's. Plan of Care: ADL Retraining, Functional Mobility, UE Funct Exercise/Act Treatment Duration: Oct 07, 2021 Frequency: 3 times per week (3-5 times per week) Agreement: Yes Rehab Potential: Fair Time/GCodes Start Time: 09:56 Stop Time: 10:06 Total Time Billed (hr/min): 10 Billed Treatment Time 1 visit-EX 1 (10 min) ALVARO SHORT Sep 29, 2021 10:54
[2021-09-29 11:56] VITALS: BP 125/81
--- NOTE | 2021-09-29 13:43 | Physical Therapy Daily Note ---
PT Daily Note-Current Subjective Patient resistant to treatment. Patient educated on benefits of mobility to improve current level of function and activity to promote healing. Patient reports he will do bed exercises and will ambulate tomorrow. 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 Mental Status Patient Orientation: Person Transfers SCALE: Activities may be completed with or without assistive devices. 3-Fuxbzczudd-hlmdaou completes the activity by him/herself with no assistance from a helper. 5-Set-up or Clean-up Assistance-helper sets up or cleans up; patient completes activity. [place] assists only prior to or following the activity. 4-Supervision or Touching Assistance-helper provides verbal cues and/or touchin g/steadying and/or contact guard assistance as patient completes activity. Assistance may be provided throughout the activity or intermittently. 3-Partial/Moderate Assistance-helper does LESS THAN HALF the effort. [place] lifts, holds or supports trunk or limbs, but provides less than half the effort. 2-Substantial/Maximal Assistance-helper does MORE THAN HALF the effort. [place] lifts or holds trunk or limbs and provides more than half the effort. 2-Stzmcqdjn-yanftd does ALL the effort. Patient does none of the effort to complete the activity. Or, the assistance of 2 or more helpers is required for the patient to complete the activity. If activity was not attempted, code reason: 7-Patient Refused. 9-Not Applicable-not attempted and the patient did not perform the activity before the current illness, exacerbation or injury. 10-Not Attempted due to Environmental Limitations-(lack of equipment, weather restraints, etc.). 88-Not Attempted due to Medical Conditions or Safety Concerns. Weight Bearing Full Weight Bearing Full Weight Bearing Exercises Supine Ex: Ankle pumps, Quad Set, Glut sets, Heel Slides, Short Arc Quads, Straight leg raise, Hip abd/add Supine Reps: 20 Assessment Current Status: Poor Progress Patient agreeable to bed exercises. Refuses out of bed treatment due to pain. Patient performed LE therapeutic exercise as listed above. Patient in bed post treatment with all needs met, nursing notified, call light in hand. 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 Time Frame: Oct 05, 2021 Roll Left & Right (QC): 6 Sit to Lying (QC): 6 Lying-Sitting on Side/Bed(QC): 6 Sit to Stand (QC): 6 Chair/Piw-mr-Qfbqt Xfer(QC): 4 Toilet Transfer (QC): 4 Does the Patient Walk: Yes Walk 10 feet (QC): 4 Walk 50ft with 2 Turns (QC): 4 Walk 150 ft (QC): 88 PT Plan Treatment/Plan Treatment Plan: Continue Plan of Care Treatment Plan: Bed Mobility, Education, Functional Activity Giovanni, Functional Strength, Gait, Therapeutic Exercise, Transfers Treatment Duration: Oct 05, 2021 Frequency: 11 times per week Estimated Hrs Per Day: .25 hour per day Safety Risks/Education Patient Education: Disease Process Teaching Recipient: Patient Teaching Methods: Discussion Response to Teaching: Reinforcement Needed Time/GCodes Time In: 938 Time Out: 950 Total Billed Treatment Time: 12 Total Billed Treatment Visit, Ex NATHALY CANTU PT Sep 29, 2021 13:43
[2021-09-29 15:50] VITALS: BP 119/79
[2021-09-29 19:32] VITALS: BP 109/71
[2021-09-30] VITALS (7 sets, daily range): BP systolic 113–145; BP diastolic 66–98
[2021-09-30 05:28] LABS: BASOPHILS % (AUTO) 1 % (0-10); EOSINOPHILS # (AUTO) 0.1 10^3/uL (0.0-0.3); EOSINOPHILS % (AUTO) 2 % (0-10); HEMATOCRIT 42 % (40-54); HEMOGLOBIN 14.4 g/dL (13.3-17.7); LYMPHOCYTES # (AUTO) 1.4 10^3/uL (1.0-4.0); LYMPHOCYTES % (AUTO) 25 % (12-44); MEAN CORPUSCULAR HEMOGLOBIN 36 pg (25-34); MEAN CORPUSCULAR HGB CONC 34 g/dL (32-36); MEAN CORPUSCULAR VOLUME 104 fL (80-99); MEAN PLATELET VOLUME 11.8 fL (9.0-12.2); MONOCYTES # (AUTO) 0.3 10^3/uL (0.0-1.0); MONOCYTES % (AUTO) 5 % (0-12); NEUTROPHILS # (AUTO) 3.7 10^3/uL (1.8-7.8); NEUTROPHILS % (AUTO) 67 % (42-75); PLATELET COUNT 142 10^3/uL (130-400); WHITE BLOOD COUNT 5.4 10^3/uL (4.3-11.0)
[2021-09-30 05:36] LABS: POTASSIUM 3.8 MMOL/L (3.6-5.0)
[2021-09-30 05:37] LABS: CALCIUM 8.4 MG/DL (8.5-10.1)
[2021-09-30 05:38] LABS: TOTAL PROTEIN 5.7 GM/DL (6.4-8.2)
[2021-09-30 05:40] LABS: BILIRUBIN,TOTAL 0.8 MG/DL (0.1-1.0)
[2021-09-30 05:42] LABS: CREATININE SERUM 0.7 MG/DL (0.60-1.30)
[2021-09-30 05:45] LABS: MAGNESIUM 1.8 MG/DL (1.6-2.4)
--- NOTE | 2021-09-30 06:10 | Progress Note - Hospitalist ---
Subjective HPI/CC On Admission Date Seen by Provider: Sep 30, 2021 Time Seen by Provider: 12:30 CC: Afib with RVR and chest pain HPI: This is a 66 yr old WM alcoholic, known to us from past admission when he left AMA. He presented to the ER with chest pain. He had a fall at home. Intoxicated and not interested in alcohol cessation treatment. He reports now he is weak and needs therapy in order to return back home. He will be transferred to 4th floor on alcohol withdrawal protocol. He will be going down to 4th floor. Subjective/Events-last exam Pt is doing better Walked around the bed well Will order a walker for him PT and OT did walk with him Doesn't feel like he can go home today Alcoholism is severe Review of Systems General: Fatigue, Malaise Objective Exam Vital Signs Vital Signs Date Time Temp Pulse Resp B/P (MAP) Pulse Ox O2 Delivery O2 Flow Rate FiO2 09/30/21 20:18 36.0 67 20 129/89 (102) 95 Room Air 09/28/21 03:47 21 09/28/21 01:00 2.00 Capillary Refill : Less Than 3 Seconds General Appearance: No Apparent Distress, WD/WN, Chronically ill Respiratory: Lungs Clear Results/Procedures Lab Laboratory Tests 09/30/21 05:16 Patient resulted labs reviewed. Assessment/Plan Assessment and Plan Assess & Plan/Chief Complaint Assessment: Chest pain no evidence of ACS A. fib with RVR Alcoholism with alcohol withdrawal pending Severe weakness due to alcoholism Plan: PT and OT Supportive care 09/30/2021: Supportive care PT and OT Clinical Quality Measures AMI/AHF: ASA po Prior to arrival: BHARGAV Jackman DO Sep 30, 2021 06:10
[2021-09-30] MEDS: FOLIC ACID 1 MG TAB PO SCH (09:15)
[2021-09-30] MEDS: THIAMINE 100 MG (VITAMIN B-1) TAB PO SCH (09:15)
[2021-09-30] MEDS: SACUBITRIL/VALSARTAN 24/26 MG (ENTRESTO) TABLET PO SCH ×2 (09:15→20:16)
[2021-09-30] MEDS: MULTIVIT W/MINERALS TAB (THERAGRAN M) PO SCH (09:15)
[2021-09-30] MEDS: CYANOCOBALAMIN 1,000 MCG (VITAMIN B-12) TABLET PO SCH (09:15)
[2021-09-30] MEDS: APIXABAN 5 MG (ELIQUIS) TABLET PO SCH ×2 (09:15→20:16)
--- NOTE | 2021-09-30 11:25 | Physical Therapy Daily Note ---
PT Daily Note-Current Subjective Patient lying supine in bed upon PT arrival, agreeable to treatment but very upset that he was awakened last night. Reports 9/10 pain in his low back and hips Transfers SCALE: Activities may be completed with or without assistive devices. 9-Ppxhbiikxt-tqgfbkp completes the activity by him/herself with no assistance from a helper. 5-Set-up or Clean-up Assistance-helper sets up or cleans up; patient completes activity. [place] assists only prior to or following the activity. 4-Supervision or Touching Assistance-helper provides verbal cues and/or touching/steadying and/or contact guard assistance as patient completes activity. Assistance may be provided throughout the activity or intermittently. 3-Partial/Moderate Assistance-helper does LESS THAN HALF the effort. [place] lifts, holds or supports trunk or limbs, but provides less than half the effort. 2-Substantial/Maximal Assistance-helper does MORE THAN HALF the effort. [place] lifts or holds trunk or limbs and provides more than half the effort. 3-Qogqmrwxb-tfgmuf does ALL the effort. Patient does none of the effort to complete the activity. Or, the assistance of 2 or more helpers is required for the patient to complete the activity. If activity was not attempted, code reason: 7-Patient Refused. 9-Not Applicable-not attempted and the patient did not perform the activity before the current illness, exacerbation or injury. 10-Not Attempted due to Environmental Limitations-(lack of equipment, weather restraints, etc.). 88-Not Attempted due to Medical Conditions or Safety Concerns. Roll Left & Right (QC): 4 Sit to Lying (QC): 4 Lying to Sitting/Side of Bed(Q: 4 Sit to Stand (QC): 3 Weight Bearing Full Weight Bearing Full Weight Bearing Gait Training Does the Patient Walk?: Yes Distance: 14 feet x 2 Walk 10 feet (QC): 4 Gait Persons Needed: 1 Gait Assistive Device: FWW Assessment Current Status: Fair Progress Patient tolerated treatment fair, more agreeable to getting out of bed and reports "I'm ready to get out of here." He demonstrates SBA with all observed bed mobility and min A with sit to stand. Patient ambulates 14 feet with FWW, with CGA slowly. He sits on the side of the bed then ambulates 14 feet back to the other side. Patient in bed post treatment with all needs met, nursing notified, call light in reach. 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 [employer] Goals Time Frame: Oct 05, 2021 Roll Left & Right (QC): 6 Sit to Lying (QC): 6 Lying-Sitting on Side/Bed(QC): 6 Sit to Stand (QC): 6 Chair/Bmk-fd-Wbuol Xfer(QC): 4 Toilet Transfer (QC): 4 Does the Patient Walk: Yes Walk 10 feet (QC): 4 Walk 50ft with 2 Turns (QC): 4 Walk 150 ft (QC): 88 PT Plan Treatment/Plan Treatment Plan: Continue Plan of Care Treatment Plan: Bed Mobility, Education, Functional Activity Giovanni, Functional Strength, Gait, Therapeutic Exercise, Transfers Treatment Duration: Oct 05, 2021 Frequency: 11 times per week Estimated Hrs Per Day: .25 hour per day Safety Risks/Education Patient Education: Gait Training Teaching Recipient: Patient Teaching Methods: Demonstration, Discussion Response to Teaching: Verbalize Understanding, Return Demonstration Time/GCodes Time In: 1050 Time Out: 1115 Total Billed Treatment Time: 25 Total Billed Treatment Visit, NATHALY Davis PT Sep 30, 2021 11:25
--- NOTE | 2021-09-30 11:43 | Conscious Sedation/ASA ---
Conscious Sedation Pre-Proced Time 10:00 ASA Score 3 For ASA 3 and 4: Consider anesthesia and medical clearance. Also, for patients with a history of failed moderate sedation consider anesthesia. Airway Lungs Heart ASA score ASA 1: a normal healthy patient ASA 2: a patient with a mild systemic disease (mid diabetes, controlled hypertension, obesity x ASA 3: a patient with a severe systemic disease that limits activity (angina, COPD, prior Myocardial infarction) ASA 4: a patient with an incapacitating disease that is a constant threat to life (CHF, renal failure) ASA 5: a moribund patient not expected to survive 24 hrs. (ruptured aneurysm) ASA 6: a declared brain- patient whose organs are being harvested. For emergent operations, add the letter E after the classification Mallampati Classification Grade 3 Sedation Plan Analgesia, Amnesia, Plan communicated to team members, Discussed options with patient/fam, Discussed risks with patient/fam The patient is an appropriate candidate to undergo the planned procedure, sedation, and anesthesia. The patient immediately re-assessed prior to indication. AVRIL LEAL MD Sep 30, 2021 11:43
--- NOTE | 2021-09-30 11:44 | Cardioversion ---
Cardioversion PROCEDURE PHYSICIAN: AVRIL Cartagena MD Sep 30, 2021 11:44
--- NOTE | 2021-09-30 12:28 | Cardiology Progress Note ---
Subjective Date Seen by Provider: Sep 30, 2021 Time Seen by Provider: 12:26 Subjective/Events-last exam Patient was seen at bedside, laying down comfortably He received his LifeVest today. Still having generalized weakness Review of Systems General: No Chills, No Night Sweats; Fatigue, Malaise; No Appetite, No Other HEENT: No Head Aches, No Visual Changes, No Eye Pain, No Ear Pain, No Dysphasia, No Sinus Congestion, No Post Nasal Drip, No Sore Throat, No Other Pulmonary: Dyspnea; No Cough, No Pleuritic Chest Pain, No Other Cardiovascular: No: Chest Pain, Palpitations, Orthopnea, Paroxysmal Noc. Dyspnea, Edema, Lt Headedness, Other Objective-Cardiology Exam Last Set of Vital Signs Vital Signs 09/28/21 09/28/21 09/30/21 01:00 03:47 11:55 Temp 36.2 Pulse 67 Resp 18 B/P (MAP) 129/90 (103) Pulse Ox 98 O2 Delivery Room Air O2 Flow Rate 2.00 FiO2 21 I&O Intake and Output 09/30/21 00:00 Intake Total 1821.87 ml Output Total 1625 ml Balance 196.87 ml Intake Oral 1800 ml IV Total 21.87 ml Output Urine Total 1625 ml # Bowel Movements 2 General: Alert, Oriented X3, Cooperative HEENT: Atraumatic, PERRLA Neck: Supple, No JVD, No Thyromegaly Lungs: Clear to Auscultation, Normal Air Movement Heart: Regular Rate, Normal S1, Normal S2, No Murmurs Abdomen: Normal Bowel Sounds, Soft, No Tenderness, No Hepatosplenomegaly, No Masses Extremities: No Clubbing, No Cyanosis, No Edema, Normal Pulses, No Tenderness/Swelling Skin: No Rashes, No Breakdown, No Significant Lesion Neuro: Normal Gait, Normal Speech, Strength at 5/5 X4 Ext, Normal Tone, Sens ation Intact Psych/Mental Status: Mental Status NL, Mood NL Results Lab Laboratory Tests 09/30/21 05:16 A/P-Cardiology Admission Diagnosis Chest pain PAF CHF Alcoholism Assessment/Plan Severe chest pain, recurrent episode of chest pain, underwent cardiac catheterization by Dr. Pink in June 2021 reporting mild coronary artery disease nonobstructive disease. Repeat cardiac catheterization was done on September 18, 2021 due to severe chest pain and severe deterioration in the left ventricular function. Mild coronary artery disease nonobstructive disease Elevated left ventricular end-diastolic pressure. Chest pain reproducible with palpation. Noncardiac pain Syncope, multiple episodes over the past few months. Associated with severe chest pain. Unknown etiology Could be vasovagal or secondary to arrhythmia. Underlying malignant arrhythmia such as ventricular tachycardia cannot be excluded. Currently back in sinus rhythm. Paroxysmal atrial fibrillation, presented with AFib with RVR, converted to sinus rhythm on Cardizem drip. Had been maintained on Coreg 3.125mg BID and Eliquis 5mg BID, reports noncompliance at home, medication were restarted. History of Frequent premature ventricular contractions Congestive heart failure, chronic compensated left ventricular systolic dysfunction, nonischemic cardiomyopathy 2D echocardiogram done on September 17, 2021 showing dilated left ventricle with diffuse left ventricular hypokinesia with segmental wall motion abnormality ejection fraction 25 to 30%, PA pressure 30 to 35 mmHg Patient was started on beta-blockers, Entresto on last visit, has been noncompliant at home. Received his LifeVest today. Educated on compliance with medication [id number] score of 2, restarting Eliquis Thoracic aortic aneurysm, he had an aortic root measuring 4 cm on an echocardiogram at an outside hospital. Continue to monitor closely, planning to evaluate CTA chest Hypertension, monitor blood pressure after the medication changes Elevated liver enzymes, could be secondary to alcoholic hepatitis. Dementia, patient has significant memory loss. Tobaccoism, educated on smoking cessation Alcoholism. Started on thiamine, alcohol withdrawal precautions Hx pancreatitis Gastroesophageal reflux disease. AVRIL LEAL MD Sep 30, 2021 12:28
--- NOTE | 2021-09-30 13:33 | Occupational Ther Daily Note ---
OT Current Status-Daily Note Subjective Pt alert, lying in bed. Pt agrees to therapy. No c/o pain. Mental Status/Objective Patient Orientation: Person, Place, Time, Situation Attachments: IV ADL-Treatment Therapy Code Descriptions/Definitions Functional [place] Measure: 0=Not Assessed/NA 4=Minimal Assistance 1=Total Assistance 5=Supervision or Setup 2=Maximal Assistance 6=Modified Rush 3=Moderate Assistance 7=Complete IndependenceSCALE: Activities may be completed with or without assistive devices. 4-Waukoiranp-vntsyjg completes the activity by him/herself with no assistance from a helper. 5-Set-up or Clean-up Assistance-helper sets up or cleans up; patient completes activity. [place] assists only prior to or following the activity. 4-Supervision or Touching Assistance-helper provides verbal cues and/or touching/steadying and/or contact guard assistance as patient completes activity. Assistance may be provided throughout the activity or intermittently. 3-Partial/Moderate Assistance-helper does LESS THAN HALF the effort. [place] lifts, holds or supports trunk or limbs, but provides less than half the effort. 2-Substantial/Maximal Assistance-helper does MORE THAN HALF the effort. [place] lifts or holds trunk or limbs and provides more than half the effort. 8-Mbknrvdji-npntds does ALL the effort. Patient does none of the effort to complete the activity. Or, the assistance of 2 or more helpers is required for the patient to complete the activity. If activity was not attempted, code reason: 7-Patient Refused. 9-Not Applicable-not attempted and the patient did not perform the activity before the current illness, exacerbation or injury. 10-Not Attempted due to Environmental Limitations-(lack of equipment, weather restraints, etc.). 88-Not Attempted due to Medical Conditions or Safety Concerns. Other Treatment Pt sat EOB to complete exercises. Medium resistance theraband HEP and theraband given for use in room and home. Skilled instruction given for correct technique during exercises. Pt completed 2 sets 10 reps with verbal and gestural cues for correct technique. Pt tolerated resistance though fatigued quickly. Instructed for pt to complete throughout the day to increase strength and endurance. After therapy, pt lying in bed with call light/phone in reach. All needs met in room. OT Precision Lathe Operator Goals Precision Lathe Operator Goals Time Frame: Oct 07, 2021 Eating (QC): 6 Oral Hygiene (QC): 6 Toileting Hygiene (QC): 4 Shower/Bathe Self (QC): 4 Upper Body Dressing (QC): 5 Lower Body Dressing (QC): 4 On/Off Footwear (QC): 4 Additional Goals: 1-Demonstrate ADL Tasks, 2-Verbalize Understanding, 3- ImproveStrength/Giovanni 1=Demonstrate adherence to instructed precautions during ADL tasks. 2=Patient will verbalize/demonstrate understanding of assistive devices/modifications for ADL. 3=Patient will improve strength/tolerance for activity to enable patient to perform ADL's. OT Education/Plan Problem List/Assessment Assessment: Decreased Activ Tolerance, Decreased UE Strength Discharge Recommendations Plan/Recommendations: Continue POC Treatment Plan/Plan of Care Patient would benefit from OT for education, treatment and training to promote independence in ADL's, mobility, safety and/or upper extremity function for ADL's. Plan of Care: ADL Retraining, Functional Mobility, UE Funct Exercise/Act Treatment Duration: Oct 07, 2021 Frequency: 3 times per week (3-5 times per week) Agreement: Yes Rehab Potential: Fair Time/GCodes Start Time: 10:45 Stop Time: 11:00 Total Time Billed (hr/min): 15 Billed Treatment Time 1 visit-EX 1 (15 min) ALVARO SHORT Sep 30, 2021 13:33
[2021-10-01 04:10] VITALS: BP 106/52
[2021-10-01 08:31] VITALS: BP 107/60
[2021-10-01 09:28] VITALS: BP 107/60
--- NOTE | 2021-10-01 09:28 | Progress Note - Hospitalist ---
Subjective HPI/CC On Admission Date Seen by Provider: Oct 01, 2021 Time Seen by Provider: 09:21 CC: Afib with RVR and chest pain HPI: This is a 66 yr old WM alcoholic, known to us from past admission when he left AMA. He presented to the ER with chest pain. He had a fall at home. Intoxicated and not interested in alcohol cessation treatment. He reports now he is weak and needs therapy in order to return back home. He will be transferred to 4th floor on alcohol withdrawal protocol. He will be going down to 4th floor. Subjective/Events-last exam Patient complains of anterior precordial chest pain worse with breathing with poor sleep secondary to this last night. Denies shortness of breath at rest. Patient threatening to leave AMA if something is not done about his chest pain. It has been going on for the past several days. He has had these episodes in the past and reports he is pain-free in the interval. In the past he would go to his doctor in [place] who would give him something that he took twice a day for an unspecified period of time which would improve his symptoms. He does not know the name of the medication. He denies lightheadedness presyncope or sy ncope. Objective Exam Vital Signs Vital Signs Date Time Temp Pulse Resp B/P (MAP) Pulse Ox O2 Delivery O2 Flow Rate FiO2 10/01/21 08:31 35.7 80 18 107/60 (76) 97 Room Air 09/28/21 03:47 21 09/28/21 01:00 2.00 Capillary Refill : Less Than 3 Seconds General Appearance: No Apparent Distress, Other (Irritable) Respiratory: Lungs Clear, Normal Breath Sounds, No Accessory Muscle Use, No R espiratory Distress, Other (Chest pain to palpation over the sternum and the xiphoid process and costochondral areas. No pain to palpation over the abdomen. Patient reports pain does radiate down to this location.) Cardiovascular: Regular Rate, Rhythm, No Edema, No Gallop, No JVD, No Murmur, Normal Peripheral Pulses Results/Procedures Lab Patient resulted labs reviewed. Assessment/Plan Assessment and Plan Assess & Plan/Chief Complaint 1. Noncardiac chest pain although it is difficult to explain this to the patient who still believes that it is his heart. No evidence for acute coronary syndrome. Suspect pleurisy chest wall or less likely pericarditis. Will give a trial of nonsteroidal medication IV in the form of Toradol. Patient reports no history of peptic ulcer disease this will just be temporary considering anticoagulation and we did discuss the potential for increased bleeding risk. If he does well with this would consider discharge on a short course of Celebrex with close monitoring of heart failure and renal function considering #2. 2. Nonischemic cardiomyopathy with compensated systolic heart failure appears to be tolerating carvedilol and Entresto continue per cardiology. 3. Paroxysmal atrial fibrillation currently appears to be in sinus rhythm. 3. Alcoholism which may be the cause of #2. Clinical Quality Measures AMI/AHF: ASA po Prior to arrival: MELISA Turk MD Oct 01, 2021 09:28
[2021-10-01] MEDS ORDERED: KETOROLAC 30 MG/ML VIAL IVP PRN (09:30)
[2021-10-01] MEDS ORDERED: KETOROLAC 30 MG/ML VIAL IVP NR (09:30)
[2021-10-01] MEDS: APIXABAN 5 MG (ELIQUIS) TABLET PO SCH ×2 (09:57→20:55)
[2021-10-01] MEDS: SACUBITRIL/VALSARTAN 24/26 MG (ENTRESTO) TABLET PO SCH ×2 (09:57→20:55)
[2021-10-01] MEDS: THIAMINE 100 MG (VITAMIN B-1) TAB PO SCH (09:57)
[2021-10-01] MEDS: MULTIVIT W/MINERALS TAB (THERAGRAN M) PO SCH (09:57)
[2021-10-01] MEDS: FOLIC ACID 1 MG TAB PO SCH (09:57)
[2021-10-01] MEDS: CYANOCOBALAMIN 1,000 MCG (VITAMIN B-12) TABLET PO SCH (09:57)
[2021-10-01 10:33] LABS: BASOPHILS # (AUTO) 0.1 10^3/uL (0.0-0.1); BASOPHILS % (AUTO) 1 % (0-10); EOSINOPHILS # (AUTO) 0.1 10^3/uL (0.0-0.3); EOSINOPHILS % (AUTO) 2 % (0-10); HEMATOCRIT 46 % (40-54); HEMOGLOBIN 15.4 g/dL (13.3-17.7); LYMPHOCYTES % (AUTO) 19 % (12-44); MEAN CORPUSCULAR HEMOGLOBIN 35 pg (25-34); MEAN CORPUSCULAR HGB CONC 34 g/dL (32-36); MEAN CORPUSCULAR VOLUME 105 fL (80-99); MEAN PLATELET VOLUME 11.9 fL (9.0-12.2); MONOCYTES # (AUTO) 0.3 10^3/uL (0.0-1.0); MONOCYTES % (AUTO) 6 % (0-12); NEUTROPHILS # (AUTO) 3.8 10^3/uL (1.8-7.8); NEUTROPHILS % (AUTO) 72 % (42-75); PLATELET COUNT 155 10^3/uL (130-400); WHITE BLOOD COUNT 5.3 10^3/uL (4.3-11.0)
[2021-10-01 10:44] LABS: ALBUMIN 3.3 GM/DL (3.2-4.5)
[2021-10-01 10:45] LABS: CALCIUM 8.7 MG/DL (8.5-10.1)
[2021-10-01 10:46] LABS: TOTAL PROTEIN 6.1 GM/DL (6.4-8.2)
[2021-10-01 10:48] LABS: BILIRUBIN,TOTAL 0.9 MG/DL (0.1-1.0)
[2021-10-01 10:50] LABS: CREATININE SERUM 0.76 MG/DL (0.60-1.30)
--- NOTE | 2021-10-01 11:28 | Physical Therapy Daily Note ---
PT Daily Note-Current Subjective Pt supine in bed upon arrival. Report 11/10 pain in stomach and chest this date, and is upset that he did not sleep well. He denies any OOB activities, and refuses offer to sit at EOB. Pt agrees to complete bed exercises for leg strengthening. Appearance Following session, pt supine in bed with call light, phone and tray table within reach. All needs met. Mental Status Patient Orientation: Person, Place, Situation Transfers SCALE: Activities may be completed with or without assistive devices. 2-Ivpskvymnt-lcfzdew completes the activity by him/herself with no assistance from a helper. 5-Set-up or Clean-up Assistance-helper sets up or cleans up; patient completes activity. [place] assists only prior to or following the activity. 4-Supervision or Touching Assistance-helper provides verbal cues and/or touching/steadying and/or contact guard assistance as patient completes activity. Assistance may be provided throughout the activity or intermittently. 3-Partial/Moderate Assistance-helper does LESS THAN HALF the effort. [place] lifts, holds or supports trunk or limbs, but provides less than half the effort. 2-Substantial/Maximal Assistance-helper does MORE THAN HALF the effort. [place] lifts or holds trunk or limbs and provides more than half the effort. 6-Zovegecut-onsdea does ALL the effort. Patient does none of the effort to complete the activity. Or, the assistance of 2 or more helpers is required for the patient to complete the activity. If activity was not attempted, code reason: 7-Patient Refused. 9-Not Applicable-not attempted and the patient did not perform the activity before the current illness, exacerbation or injury. 10-Not Attempted due to Environmental Limitations-(lack of equipment, weather restraints, etc.). 88-Not Attempted due to Medical Conditions or Safety Concerns. Weight Bearing Full Weight Bearing Full Weight Bearing Exercises Supine Ex: Ankle pumps, Quad Set, Glut sets, Lower trunk rotation, Heel Slides, Straight leg raise, Hip abd/add Supine Reps: 10 Assessment Current Status: Fair Progress Functional mobility limited by pain this date, pt tolerated leg exercises well without increased pain levels. PT Longterm Goals Correctional Officer Sergeant Goals PT Correctional Officer Sergeant Goals Time Frame: Oct 05, 2021 Roll Left & Right (QC): 6 Sit to Lying (QC): 6 Lying-Sitting on Side/Bed(QC): 6 Sit to Stand (QC): 6 Chair/Ujf-ah-Aeohe Xfer(QC): 4 Toilet Transfer (QC): 4 Does the Patient Walk: Yes Walk 10 feet (QC): 4 Walk 50ft with 2 Turns (QC): 4 Walk 150 ft (QC): 88 PT Plan Problem List Problem List: Activity Tolerance, Functional Strength, Safety, Balance, Gait, Transfer, Bed Mobility, ROM Treatment/Plan Treatment Plan: Continue Plan of Care Treatment Plan: Bed Mobility, Education, Functional Activity Giovanni, Functional Strength, Gait, Therapeutic Exercise, Transfers Treatment Duration: Oct 05, 2021 Frequency: 11 times per week Estimated Hrs Per Day: .25 hour per day Time/GCodes Time In: 1057 Time Out: 1107 Total Billed Treatment Time: 10 Total Billed Treatment 1 visit EX (10') NATHANIEL BLOCK PT Oct 01, 2021 11:28
[2021-10-01 11:35] VITALS: BP 106/71
[2021-10-01 16:00] VITALS: BP 122/84
--- NOTE | 2021-10-01 16:41 | Progress Note - Cardiology ---
Cardiology SOAP Progress Note Subjective: No cp in last 24 hours No palp or syncope in the last 24 hours No shortness of breath at rest No n/v/d Gen weakness and malaise present Objective: I&O/Vital Signs 10/01/21 10/01/21 10/01/21 10/01/21 07:00 08:31 09:00 09:28 Temp 35.7 35.7 Pulse 62 80 19 Resp 18 B/P (MAP) 107/60 (76) Pulse Ox 97 91 O2 Delivery Room Air Room Air 10/01/21 10/01/21 10/01/21 09:28 11:35 13:00 Temp 35.4 Pulse 65 68 Resp 18 B/P (MAP) 106/71 (83) Pulse Ox 91 95 O2 Delivery Room Air Room Air 10/01/21 00:00 Intake Total 1380 ml Output Total 1025 ml Balance 355 ml Weight (Pounds): 211 Weight (Ounces): 0.5 Weight (Calculated Kilograms): 95.079247 Constitutional: AAO x 3, well-developed, well-nourished Respiratory: No accessory muscle use; other (good, bilateral air entry) Cardiovascular: regular rate-rhythm, S1 and S2, systolic murmur (soft JAHAIRA at card base) Gastrointestional: No tender; soft; No guarding, No rebound; audible bowel sounds Extremities: No clubbing, No cyanosis, No significant edema Neurologic/Psychiatric: oriented x 3, other (moves all limbs equally) Skin: No rash on exposed areas, No ulcerations on exposed areas Results/Procedures: Labs Laboratory Tests 10/01/21 10:25: White Blood Count 5.3, Red Blood Count 4.36, Hemoglobin 15.4, Hematocrit 46, Mean Corpuscular Volume 105H, Mean Corpuscular Hemoglobin 35H, Mean Corpuscular Hemoglobin Concent 34, Red Cell Distribution Width 14.6H, Platelet Count 155, Mean Platelet Volume 11.9, Immature Granulocyte % (Auto) 0, Neutrophils (%) (Auto) 72, Lymphocytes (%) (Auto) 19, Monocytes (%) (Auto) 6, Eosinophils (%) (Auto) 2, Basophils (%) (Auto) 1, Neutrophils # (Auto) 3.8, Lymphocytes # (Auto) 1.0, Monocytes # (Auto) 0.3, Eosinophils # (Auto) 0.1, Basophils # (Auto) 0.1, Immature Granulocyte # (Auto) 0.0, Sodium Level 137, Potassium Level 4.0, Chlo ride Level 105, Carbon Dioxide Level 21, Anion Gap 11, Blood Urea Nitrogen 7, Creatinine 0.76, Estimat Glomerular Filtration Rate 100, BUN/Creatinine Ratio 9, Glucose Level 163H, Calcium Level 8.7, Corrected Calcium 9.3, Magnesium Level 2.0, Total Bilirubin 0.9, Aspartate Amino Transf (AST/SGOT) 137H, Alanine Aminotransferase (ALT/SGPT) 83H, Alkaline Phosphatase 58, Total Protein 6.1L, Albumin 3.3 Microbiology 09/28/21 MRSA Screen - Final, Complete MRSA not isolated A/P: Assessment: Severe, recurrent, non-coronary chest pains of undetermined etiology - cardiac catheterization by Dr. Pink in June 2021 reporting mild coronary artery disease nonobstructive disease. - repeat cardiac catheterization was done on September 18, 2021 due to severe chest pain and severe deterioration in the left ventricular function. Mild coronary artery disease nonobstructive disease. Elevated left ventricular end-diastolic pressure. Syncope, multiple episodes over the past few months. Associated with severe chest pain. Unknown etiology - Could be vasovagal or secondary to arrhythmia. Paroxysmal atrial fibrillation - Had been maintained on Coreg 3.125mg BID and Eliquis 5mg BID, h/o intermittent noncompliance Nonischemic, dilated cardiomyopathy, probably alcohol-related - intermittent noncompliance with instructions and treatment Thoracic aortic aneurysm, he had an aortic root measuring 4 cm on an echocardiogram at an outside hospital. Monitored by Dr Irwin Hypertension, controlled Elevated liver enzymes, probably secondary to alcoholic hepatitis. Dementia, patient has significant memory loss. Tobaccoism, educated on smoking cessation Alcoholism - on prophylaxis and treatment for withdrawal Hx pancreatitis Gastroesophageal reflux disease. Plan: * Continue carvedilol and Entresto as permitted by bp * Advised to quit smoking and alcohol * Monitor labs * Will need reeval for EF after has been compliant with optimized medical therapy for 3 months * May need ILR implantation to monitor for arrhythmia Clinical Quality Measures AMI/AHF: ASA po Prior to arrival: MATTHEW Salgado MD FACP FAC CCDS Oct 01, 2021 16:41
[2021-10-01 19:56] VITALS: BP 119/72
[2021-10-02 00:09] VITALS: BP 142/82
[2021-10-02 04:00] VITALS: BP 132/86
[2021-10-02 05:02] LABS: BASOPHILS % (AUTO) 1 % (0-10); EOSINOPHILS # (AUTO) 0.1 10^3/uL (0.0-0.3); EOSINOPHILS % (AUTO) 2 % (0-10); HEMATOCRIT 44 % (40-54); HEMOGLOBIN 14.7 g/dL (13.3-17.7); LYMPHOCYTES # (AUTO) 1.4 10^3/uL (1.0-4.0); LYMPHOCYTES % (AUTO) 26 % (12-44); MEAN CORPUSCULAR HEMOGLOBIN 35 pg (25-34); MEAN CORPUSCULAR HGB CONC 33 g/dL (32-36); MEAN CORPUSCULAR VOLUME 105 fL (80-99); MEAN PLATELET VOLUME 11.9 fL (9.0-12.2); MONOCYTES # (AUTO) 0.4 10^3/uL (0.0-1.0); MONOCYTES % (AUTO) 7 % (0-12); NEUTROPHILS # (AUTO) 3.4 10^3/uL (1.8-7.8); NEUTROPHILS % (AUTO) 63 % (42-75); PLATELET COUNT 153 10^3/uL (130-400); WHITE BLOOD COUNT 5.3 10^3/uL (4.3-11.0)
[2021-10-02 05:06] VITALS: BP 132/86
[2021-10-02 05:24] LABS: ALBUMIN 3.4 GM/DL (3.2-4.5)
[2021-10-02 05:25] LABS: CALCIUM 8.5 MG/DL (8.5-10.1)
[2021-10-02 05:28] LABS: BILIRUBIN,TOTAL 0.9 MG/DL (0.1-1.0)
[2021-10-02 05:30] LABS: CREATININE SERUM 0.73 MG/DL (0.60-1.30)
[2021-10-02] MEDS: THIAMINE 100 MG (VITAMIN B-1) TAB PO SCH (06:50)
[2021-10-02] MEDS: MULTIVIT W/MINERALS TAB (THERAGRAN M) PO SCH (06:50)
[2021-10-02] MEDS: CYANOCOBALAMIN 1,000 MCG (VITAMIN B-12) TABLET PO SCH (06:50)
[2021-10-02] MEDS: FOLIC ACID 1 MG TAB PO SCH (08:12)
[2021-10-02] MEDS: APIXABAN 5 MG (ELIQUIS) TABLET PO SCH (08:12)
[2021-10-02] MEDS: SACUBITRIL/VALSARTAN 24/26 MG (ENTRESTO) TABLET PO SCH (08:15)
[2021-10-02 08:24] VITALS: BP 126/78
[2021-10-02] MEDS ORDERED: CARV3.122 PO ×2 (10:23→10:45)
[2021-10-02] MEDS ORDERED: SACU1TAB2 PO ×2 (10:23→10:45)
[2021-10-02] MEDS ORDERED: APIX5TAB PO ×2 (10:23→10:45)
[2021-10-02] MEDS ORDERED: CELE-63 PO (10:23)
--- NOTE | 2021-10-02 10:34 | Discharge Summary ---
Diagnosis/Chief Complaint Date of Admission Sep 28, 2021 at 00:37 Date of Discharge Discharge Date: Oct 02, 2021 Admission Diagnosis Assessment: Atrial fibrillation with rapid ventricular response Chest pain no evidence of ACS Severe alcoholism Alcohol withdrawal Falls Concussion Severe weakness Plan: PT and OT Transfer to fourth floor Cardiology appreciated Primary Care Neena Garcia Aprn Discharge Summary Discharge Physical Exam Allergies: Coded Allergies: Penicillins (Verified Allergy, Unknown, 10/17/13) morphine (Verified Allergy, Unknown, pt has received Hydromorphone in the past, 03/18/21) Vitals & I&Os Vital Signs Date Time Temp Pulse Resp B/P (MAP) Pulse Ox O2 Delivery O2 Flow Rate FiO2 10/02/21 08:34 Room Air 10/02/21 08:24 36.0 71 20 126/78 (94) 99 09/28/21 03:47 21 09/28/21 01:00 2.00 General Appearance: No Apparent Distress Respiratory: Lungs Clear, Normal Breath Sounds, No Accessory Muscle Use, No Respiratory Distress Cardiovascular: Regular Rate, Rhythm, No Murmur Neurologic/Psychiatric: Alert Hospital Course Was the Problem List Reviewed?: Yes Patient is a 66 y/o male with history of nonischemic cardiomyopathy, alcoholism, PAF, recurrent chest pain. Presented to the ER with complaints of chest pain and questionable syncope. Patient states he is unsure what happened, but somehow fell into the wall at his house last night, putting his head through the wall. C/o mild headache. Continues to complain of chest pain, worse with movement and palpation. Has had multiple admissions for recurrent chest pain. 66-year-old gentleman with extensive history as described below. Admitted for questionable syncope and injury to the head, he had paroxysmal atrial fibrillation. Has been noncompliant with his medication. I had a long discussion with the patient about compliance. We will restart Entresto and evaluate tolerance and response, restart Coreg, I am planning to evaluate CT of the chest due to the recurrent severe chest pain The patient was admitted and started on IV diltiazem. He was tentatively scheduled for cardioversion but converted after initiation of IV Cardizem. His alcohol level is 140 on admission with a long history of alcohol use disorder and known nonischemic dilated cardiomyopathy likely due to to alcohol. He continued to complain of chest pain with no evidence for acute coronary syndrome. Cardiac catheterization done earlier this month revealed mild coronary disease with diffuse hypokinesis. Echo done earlier in September revealed an ejection fraction 25 to 30% with pulmonary artery pressure estimated at 25 to 30% and no significant valvular insufficiency. Patient was given a dose of Toradol and he reported about 4hours pain relief. The morning of his discharge he stated that he was ready to go and he was not going to wait for cardiology before discharge. We did discuss that alcohol was likely the cause of his dilated cardiomyopathy which is going to get worse with poor short-term as well as long-term prognosis if he continues to drink and continued significant impairment in quality of life as well. Discussed the importance of medication compliance and he was advised to wear his LifeVest which was sent home with the patient as well as a walker. He has a long history of medication noncompliance but did discuss the importance of continuing medication which was again sent out to the pharmacy electronically for him being discharged on Eliquis 5 mg twice daily Entresto starting dose twice daily and carvedilol 3.25 mg twice daily. He has an appointment with Dr. Barriga in 2 weeks which she was strongly encouraged to keep. Suspect either pericarditis or pleuritis as the cause of his chest pain which she is recurrently had in the past. We did discuss increased risk for bleeding but also sent out a prescription for Celebrex 200 mg to take up to every 12 hours as needed chest pain. He was advised to monitor his stools for melena discussed in layman's terms discontinue the medication and seek medical attention promptly should it occur. He was also told he would need to discontinue Celebrex if this was the case. Discussed increased edema or increased shortness of breath would require repeat evaluation and discontinuing the medication as well. Labs (last 24 hrs) Laboratory Tests 10/02/21 04:50: White Blood Count 5.3, Red Blood Count 4.20L, Hemoglobin 14.7, Hematocrit 44, Mean Corpuscular Volume 105H, Mean Corpuscular Hemoglobin 35H, Mean Corpuscular Hemoglobin Concent 33, Red Cell Distribution Width 14.7H, Platelet Count 153, Mean Platelet Volume 11.9, Immature Granulocyte % (Auto) 0, Neutrophils (%) (Auto) 63, Lymphocytes (%) (Auto) 26, Monocytes (%) (Auto) 7, Eosinophils (%) (Auto) 2, Basophils (%) (Auto) 1, Neutrophils # (Auto) 3.4, Lymphocytes # (Auto) 1.4, Monocytes # (Auto) 0.4, Eosinophils # (Auto) 0.1, Basophils # (Auto) 0.0, Immature Granulocyte # (Auto) 0.0, Sodium Level 136, Potassium Level 4.0, Chloride Level 106, Carbon Dioxide Level 22, Anion Gap 8, Blood Urea Nitrogen 9, Creatinine 0.73, Estimat Glomerular Filtration Rate 101, BUN/Creatinine Ratio 12, Glucose Level 107H, Calcium Level 8.5, Corrected Calcium 9.0, Magnesium Level 2.0, Total Bilirubin 0.9, Aspartate Amino Transf (AST/SGOT) 99H, Alanine Aminotransferase (ALT/SGPT) 79H, Alkaline Phosphatase 51, Total Protein 6.0L, Albumin 3.4 Microbiology 09/28/21 MRSA Screen - Final, Complete MRSA not isolated Patient resulted labs reviewed. Pending Labs Laboratory Tests 10/02/21 04:50: White Blood Count 5.3, Red Blood Count 4.20, Hemoglobin 14.7, Hematocrit 44, Mean Corpuscular Volume 105, Mean Corpuscular Hemoglobin 35, Mean Corpuscular H emoglobin Concent 33, Red Cell Distribution Width 14.7, Platelet Count 153, Mean Platelet Volume 11.9, Immature Granulocyte % (Auto) 0, Neutrophils (%) (Auto) 63, Lymphocytes (%) (Auto) 26, Monocytes (%) (Auto) 7, Eosinophils (%) (Auto) 2, Basophils (%) (Auto) 1, Neutrophils # (Auto) 3.4, Lymphocytes # (Auto) 1.4, Monocytes # (Auto) 0.4, Eosinophils # (Auto) 0.1, Basophils # (Auto) 0.0, Immature Granulocyte # (Auto) 0.0, Sodium Level 136, Potassium Level 4.0, Chloride Level 106, Carbon Dioxide Level 22, Anion Gap 8, Blood Urea Nitrogen 9, Creatinine 0.73, Estimat Glomerular Filtration Rate 101, BUN/Creatinine Ratio 12, Glucose Level 107, Calcium Level 8.5, Corrected Calcium 9.0, Magnesium Level 2.0, Total Bilirubin 0.9, Aspartate Amino Transf (AST/SGOT) 99, Alanine Aminotransferase (ALT/SGPT) 79, Alkaline Phosphatase 51, Total Protein 6.0, Albumin 3.4 Discussion & Recommendations Discharge Planning: >30 minutes discharge planning Discharge Home Medications: Active Scripts Active Celecoxib 200 Mg Capsule 200 Mg PO BID PRN 15 Days Entresto 24 mg-26 mg Tablet (Sacubitril/Valsartan) 1 Each Tablet 1 Tab PO BID 30 Days Carvedilol 3.125 Mg Tablet 3.125 Mg PO BID 30 Days Eliquis (Apixaban) 5 Mg Tablet 5 Mg PO BID 30 Days Instructions to patient/family Please see electronic discharge instructions given to patient. Clinical Quality Measures AMI/AHF: ASA po Prior to arrival: MELISA Turk MD Oct 02, 2021 10:34
[2021-10-02] MEDS ORDERED: CELE200C PO (10:45)
[2021-10-02 11:41] VITALS: BP 127/84
== END 2021-10-02 13:45 | disposition home or self-care (01) | DRG 309 ==
LOC: EDUNIT# 19:17 → ER 19:18 → EDLOC 09-28 00:37 → ICU 09-28 00:37 → 4TH 09-28 16:14
PROVIDERS: ADMIT Internal Medicine; ATTEND Internal Medicine
DX: I48.0 Paroxysmal atrial fibrillation (principal); S06.0X9A Concussion with loss of consciousness of unspecified duration, initial encounter; F10.239 Alcohol dependence with withdrawal, unspecified; I50.22 Chronic systolic (congestive) heart failure; I42.0 Dilated cardiomyopathy; F17.210 Nicotine dependence, cigarettes, uncomplicated; G89.29 Other chronic pain; M54.9 Dorsalgia, unspecified; Z86.73 Personal history of transient ischemic attack (TIA), and cerebral infarction without residual deficits; J45.909 Unspecified asthma, uncomplicated; F10.229 Alcohol dependence with intoxication, unspecified; W18.30XA Fall on same level, unspecified, initial encounter; R07.9 Chest pain, unspecified; I42.6 Alcoholic cardiomyopathy; Z91.14 Patient's other noncompliance with medication regimen; I25.10 Atherosclerotic heart disease of native coronary artery without angina pectoris; I11.0 Hypertensive heart disease with heart failure; I71.2 Thoracic aortic aneurysm, without rupture; F03.90 Unspecified dementia, unspecified severity, without behavioral disturbance, psychotic disturbance, mood disturbance, and anxiety; K21.9 Gastro-esophageal reflux disease without esophagitis
CPT/HCPCS: 36415; 70450; 71045; 71275; 72125; 80053; 80320; 83735; 83874; 83880; 84100; 84484; 85025; 85610; 85730; 87081; 93005; 93041; 94760; 96374; 96375; 96376

== ENCOUNTER 2021-10-11 23:00 | Observation (INO) | payer MEDICARE ==
[~2021-10-11] VITALS: Ht 188 cm; Wt 86.6 kg
[~2021-10-11 23:00] MED LIST changes: +APIX5TAB PO; +CARV3.122 PO; +CELE-63 PO; +CELE200C PO; +SACU1TAB2 PO
[2021-10-11 23:19] LABS: BASOPHILS % (AUTO) 1 % (0-10); EOSINOPHILS # (AUTO) 0.1 10^3/uL (0.0-0.3); EOSINOPHILS % (AUTO) 1 % (0-10); HEMATOCRIT 44 % (40-54); HEMOGLOBIN 14.6 g/dL (13.3-17.7); LYMPHOCYTES # (AUTO) 1.7 10^3/uL (1.0-4.0); LYMPHOCYTES % (AUTO) 34 % (12-44); MEAN CORPUSCULAR HEMOGLOBIN 35 pg (25-34); MEAN CORPUSCULAR HGB CONC 34 g/dL (32-36); MEAN CORPUSCULAR VOLUME 106 fL (80-99); MEAN PLATELET VOLUME 11.7 fL (9.0-12.2); MONOCYTES # (AUTO) 0.3 10^3/uL (0.0-1.0); MONOCYTES % (AUTO) 6 % (0-12); NEUTROPHILS # (AUTO) 2.9 10^3/uL (1.8-7.8); NEUTROPHILS % (AUTO) 58 % (42-75); PLATELET COUNT 141 10^3/uL (130-400)
[2021-10-11 23:26] LABS: INR 1.1 (0.8-1.4); PROTHROMBIN TIME PATIENT 14.3 SEC (12.2-14.7)
[2021-10-11 23:27] LABS: ALBUMIN 3.6 GM/DL (3.2-4.5); POTASSIUM 3.1 MMOL/L (3.6-5.0)
[2021-10-11 23:28] LABS: CALCIUM 8.3 MG/DL (8.5-10.1)
[2021-10-11 23:30] LABS: TOTAL PROTEIN 6.6 GM/DL (6.4-8.2)
[2021-10-11 23:31] LABS: BILIRUBIN,TOTAL 0.4 MG/DL (0.1-1.0)
[2021-10-11 23:33] LABS: CREATININE SERUM 0.88 MG/DL (0.60-1.30)
[2021-10-11 23:36] LABS: MAGNESIUM 1.7 MG/DL (1.6-2.4)
[2021-10-11 23:44] LABS: CREATINE KINASE MB 2.2 NG/ML (<6.6)
[2021-10-12] VITALS (7 sets, daily range): BP systolic 141–163; BP diastolic 90–113
[2021-10-12] MEDS ORDERED: HOLD METFORMIN - RECEIVED CONTRAST 20 ML VIAL IV SCH (01:45)
[2021-10-12] MEDS ORDERED: NS 100 ML (IVPB) BAG IV ONE (01:45)
[2021-10-12] MEDS ORDERED: IOHEXOL 350 MG/ML 100 ML (OMNIPAQUE 350) VIAL IV ONE (01:45)
[2021-10-12 04:48] LABS: BILIRUBIN,URINE NEGATIVE (NEGATIVE); CLARITY,URINE CLEAR; COLOR,URINE YELLOW; GLUCOSE, URINE (UA) TRACE (NEGATIVE); KETONES,URINE NEGATIVE (NEGATIVE); LEUKOCYTE ESTERASE ,URINE NEGATIVE (NEGATIVE); NITRITE,URINE NEGATIVE (NEGATIVE); PROTEIN,URINE NEGATIVE (NEGATIVE)
[2021-10-12 05:01] LABS: AMPHETAMINE SCREEN, URINE NEGATIVE (NEGATIVE); BARBITURATE SCREEN URINE NEGATIVE (NEGATIVE); BENZODIAZEPINES SCREEN URINE NEGATIVE (NEGATIVE); CANNABINOID SCREEN, URINE NEGATIVE (NEGATIVE); COCAINE SCREEN URINE NEGATIVE (NEGATIVE); METHADONE STAT NEGATIVE (NEGATIVE); METHAMPHETAMINE SCREEN URINE S NEGATIVE (NEGATIVE); OPIATE SCREEN URINE NEGATIVE (NEGATIVE); OXYCODONE STAT NEGATIVE (NEGATIVE); PROPOXYPHENE STAT NEGATIVE (NEGATIVE); TRICYCLIC ANTIDEPRESSANTS SCRE NEGATIVE (NEGATIVE)
[2021-10-12 05:03] LABS: BACTERIA,URINE NEGATIVE /HPF; RBC,URINE RARE /HPF; SQUAMOUS EPITHELIAL CELL,UR RARE /HPF
[2021-10-12 05:04] LABS: CALCIUM OXALATE CRYSTALS,UR FEW /LPF
[2021-10-12] MEDS ORDERED: ONDANSETRON 4 MG/2 ML (SDV) Z0FRAN IV PRN (05:45)
[2021-10-12] MEDS ORDERED: NITROGLYCERIN 0.4 MG SL TABS BTL 25'S SL PRN (05:45)
[2021-10-12] MEDS ORDERED: fentaNYL INJ 100 MCG/2 ML AMP IV PRN (05:45)
[2021-10-12] MEDS ORDERED: ANTACID SUSP 30 ML UDC (MYLANTA) PO PRN (06:00)
[2021-10-12] MEDS ORDERED: D5 1/2 NS 1000 ML IV SOLUTION 1,000 ML IV PRN (06:00)
[2021-10-12] MEDS ORDERED: SENNA W/DOCUSATE (SENOKOT S) TABLET PO PRN (06:00)
[2021-10-12] MEDS ORDERED: 1/2 NS IV SOLUTION 1,000 ML IV PRN (06:00)
[2021-10-12] MEDS ORDERED: LORazepam INJ 2 MG/ML (ATIVAN) VIAL IV PRN (06:00)
[2021-10-12] MEDS ORDERED: LORazepam 1 MG (ATIVAN) TAB PO PRN (06:00)
[2021-10-12] MEDS ORDERED: ONDANSETRON 4 MG (ZOFRAN) ORAL DISSOLVE TAB SL PRN (06:00)
[2021-10-12] MEDS ORDERED: LORazepam INJ 2 MG/ML (ATIVAN) VIAL IM/IV PRN (06:00)
--- NOTE | 2021-10-12 06:56 | Diagnostic Imaging Report ---
PROCEDURE: CT angiography of the chest with contrast. TECHNIQUE: Multiple contiguous axial images were obtained through the chest after uneventful bolus administration of intravenous contrast. 3D reconstructed CTA MIP acquisitions were also performed. Auto Exposure Controls were utilized during the CT exam to meet ALARA standards for radiation dose reduction. INDICATION: Chest pain with shortness of breath. Comparison with CTA from 09/28/2021. FINDINGS: Good opacification of the aorta and pulmonary arteries. There are no filling defect to suggest pulmonary emboli. No evidence for aortic aneurysm or dissection. The lungs are well aerated and clear. No pneumothorax or pleural effusion. No pericardial effusion. No mediastinal or hilar adenopathy of pathologic size. There is noted lipoma involving the soft tissues overlying the upper sternum. IMPRESSION: Negative CT angiography of the chest. There has been no appreciable change since previous exam. These findings are in agreement with the preliminary report. Dictated by: Dictated on workstation # [id number]
--- NOTE | 2021-10-12 07:07 | Diagnostic Imaging Report ---
INDICATION: Chest pain. Comparison with CT angiography 09/28/2021. FINDINGS: Portable chest. Mild discoid atelectasis of the left lung base. No infiltrates are seen. Heart upper limits of normal. No pulmonary edema. No pneumothorax or pleural effusion. IMPRESSION: There is some persistent discoid atelectasis left lung base. No acute changes have occurred. Dictated by: Dictated on workstation # [id number]
--- NOTE | 2021-10-12 07:13 | Diagnostic Imaging Report ---
PROCEDURE: CT head and CT cervical spine without contrast. TECHNIQUE: Multiple contiguous axial images were obtained through the brain and cervical spine without the use of intravenous contrast. Sagittal and coronal reformations through the cervical spine were then performed. Auto Exposure Controls were utilized during the CT exam to meet ALARA standards for radiation dose reduction. INDICATION: Trauma with head and neck pain. FINDINGS: CT HEAD: The ventricles and cortical gyral pattern appear normal. There is no intracranial hemorrhage or mass effect. No extra-axial fluid collection. Basal cisterns are clear. CP angles are normal. Mastoid air cells are clear. Paranasal sinuses show mild mucosal thickening. No calvarial lesion. IMPRESSION: No acute intracranial abnormalities. No significant change since 09/27/[address] CERVICAL SPINE: Sagittal and coronal reformatted images. Good alignment of vertebral bodies. Body heights well maintained. Atlantoaxial joints intact. There are degenerative disc changes throughout most severe at the C6-C7 level with large anterior bridging osteophyte. IMPRESSION: Advanced degenerative cervical disc disease with no acute abnormalities. No significant change since previous exam. Dictated by: Dictated on workstation # [id number]
[2021-10-12] MEDS ORDERED: THIAMINE INJECTION 100 MG, FOLIC ACID INJECTION 1 MG, MAGNESIUM SULFATE 2 GM, VITAMIN M... IV SCH ×5 (09:00)
[2021-10-12] MEDS ORDERED: ASPIRIN E.C. 81 MG (ECOTRIN) TAB PO SCH (09:00)
--- NOTE | 2021-10-12 09:46 | History & Physical-Hospitalist ---
History of Present Illness HPI/Chief Complaint Patient is 66-year-old male well-known to me from previous admissions who presented to the emergency department due to chest pain and syncope. He states that he was getting up to walk to his living room when he passed out. He denies any prodromal symptoms including palpitations or tunnel vision. He varies in his history regarding chest pain at first stating he had chest pain only after he passed out and then later stating it started a couple hours before the syncopal episode. He is unsure how long he was down for. It was unwitnessed. He states this is happened multiple times before. At first he said he had not drank any alcohol prior to this happening. When informed that his alcohol level was elevated he states he did have a hot toddy or 2 prior to this. He also states that he took his pain pill before this with the alcohol to help him sleep. We discussed that this could be the cause of his issues and he does not believe that to be the case. Source: patient Date Seen 10/12/21 Time Seen by a Provider: 08:30 Attending Physician Seamus Hays MD PCP Neena Garcia Aprn Referring Physician Date of Admission Oct 12, 2021 at 04:25 Home Medications & Allergies Home Medications Reviewed patient Home Medication Reconciliation performed by pharmacy medication reconciliations watch technician and/or nursing. Patients Allergies have been reviewed. Allergies Allergies Coded Allergies Penicillins (Verified Allergy, Unknown, 10/17/13) morphine (Verified Allergy, Unknown, pt has received Hydromorphone in the past, 03/18/21) Past [id number]-[id number] Hx Patient Social History Employed/Student: retired Tobacco Use?: Yes Tobacco type used: Cigarettes Smoking Status: Current Everyday Smoker Use of E-Cig and/or Vaping dev: No Substance use?: No Alcohol Use?: Yes Alcohol type: Beer Alcohol Frequency: Daily Pt feels they are or have been: No Immunizations Up To Date First/Initial COVID19 Vaccinat: YES Second COVID19 Vaccination Loc: YES Tetanus Booster (TDap): Unknown Hepatitis A: Yes Hepatitis B: Yes PED Vaccines UTD: No Date of Pneumonia Vaccine: Jan [birth year], 1970 Current Status Advance Directives: No Communicates: Verbally Primary Language: [place] Preferred Spoken Language: [place] Is interpretation needed?: No Past Medical History Surgeries: Cardiac, Orthopedic Asthma Atrial Fibrillation, High Cholesterol, Hypertension, Irregular Heartbeat Stroke Pancreatitis, Gall Bladder Disease Back Injury, Chronic Back Pain, Fractures Adverse Reaction/Blood Tranf: No Family Medical History History of - respiratory disease 03 FATHER (EMPHYSEMIA) No Pertinent Family Hx, GI Disease Review of Systems Constitutional: No chills, No fever EENTM: no symptoms reported Cardiovascular: chest pain; No edema; syncope Gastrointestinal: no symptoms reported Genitourinary: no symptoms reported Musculoskeletal: muscle pain Skin: no symptoms reported Psychiatric/Neurological: No Symptoms Reported Physical Exam Physical Exam Vital Signs Vital Signs - First Documented Capillary Refill : Less Than 3 Seconds Height, Weight, BMI Height: 6'1.00" Weight: 211lbs. 0.5oz. [id number]; 24.50 BMI Method:Stated General Appearance: No Apparent Distress, Chronically ill HEENT: PERRL/EOMI, Moist Mucous Membranes; No Scleral Icterus (L), No Scleral Icterus (R) Neck: Normal Inspection, Supple Respiratory: Lungs Clear, No Respiratory Distress Cardiovascular: Regular Rate, Rhythm, No Murmur Gastrointestinal: Normal Bowel Sounds, Non Tender, Soft Extremity: No Calf Tenderness, No Pedal Edema Neurologic/Psychiatric: Alert, Oriented x3, Normal Mood/Affect Skin: Normal Color, Warm/Dry Results Results/Procedures Labs Laboratory Tests 10/11/21 23:00 Patient resulted labs reviewed. Imaging: Reviewed Imaging Report Assessment/Plan Admission Diagnosis Syncope Admission Status: Observation Reason for Inpatient Admission: see below Assessment and Plan Syncope Chest pain Troponin negative x2 Cardiology consulted CTA negative for PE Cardiac cath done on 09/17 with mild CAD- no intervention EF of 25-30%- Lifevest arranged during last visit though patient does not have it on Noncompliant with medications Orthostatics ordered Likely worsened to polysubstance abuse- refuses treatment Encouraged compliance with treatment plan and to quit drinking alcohol- he is insistent that alcohol does not contribute to his illness Advised him to follow up with his PCP whom he has not seen for further evaluation as the extensive workup done in the hospital has revealed no emergent need for admission DC home Clinical Quality Measures AMI/AHF: ASA po Prior to arrival: Yes (ASA) ANUSHA FLORES MD Oct 12, 2021 09:46
--- NOTE | 2021-10-12 11:21 | Consultation-Cardiology ---
HPI-Cardiology Cardiology Consultation Date of Consultation 10/12/21 Date of Admission Time Seen by Provider: 11:17 Indication: Chest pain, syncope HPI 66-year-old gentleman with history of cardiomyopathy, alcoholism, noncompliance with medication. Sustained a syncopal episode and severe chest pain. Came into the emergency room and he was noted to have alcohol level of 143. On my evaluation he was laying down comfortably, still having some chest pain on and off. Denied any palpitation. No syncope in between those episodes. We discussed the need for him to stop drinking alcohol and avoid any alcohol products. Home Medications & Allergies Allergies: Coded Allergies: Penicillins (Verified Allergy, Unknown, 10/17/13) morphine (Verified Allergy, Unknown, pt has received Hydromorphone in the past, 03/18/21) Home Medication List Reviewed: Yes [id number]-[id number] Hx Patient Social History Employed/Student: retired Smoking Status: Current Everyday Smoker Have you traveled recently?: No Alcohol Use?: Yes Immunizations Up To Date Tetanus Booster (TDap): Less than 5yrs Date of Pneumonia Vaccine: Jan 06, 1971 Past Medical History Discussed below Family Medical History Significant Family History: No Pertinent Family Hx, GI Disease Family History: History of - respiratory disease 03 FATHER (EMPHYSEMIA) Review of Systems-General Review of Systems Constitutional: No chills, No fever; malaise, weakness EENTM: no symptoms reported Respiratory: see HPI; No cough, No dyspnea on exertion, No hemoptysis, No orthopnea, No phlegm, No short of breath, No stridor, No wheezing, No other Cardiovascular: see HPI, chest pain; No edema, No Hx of Intervention, No palpitations; syncope; No vascular heart diseas, No other Gastrointestinal: no symptoms reported, see HPI Genitourinary: no symptoms reported, see HPI Musculoskeletal: see HPI, muscle pain Skin: no symptoms reported, see HPI Psychiatric/Neurological: No Symptoms Reported, See HPI Reviewed Test Results Reviewed Test Results Lab Laboratory Tests Test 10/11/21 23:00 10/12/21 04:38 10/12/21 04:40 Range/Units White Blood Count 5.0 4.3-11.0 10^3/uL Red Blood Count 4.12 L 4.30-5.52 10^6/uL Hemoglobin 14.6 13.3-17.7 g/dL Hematocrit 44 40-54 % Mean Corpuscular Volume 106 H 80-99 fL Mean Corpuscular Hemoglobin 35 H 25-34 pg Mean Corpuscular Hemoglobin Concent 34 32-36 g/dL Red Cell Distribution Width 14.9 H 10.0-14.5 % Platelet Count 141 130-400 10^3/uL Mean Platelet Volume 11.7 9.0-12.2 fL Immature Granulocyte % (Auto) 0 % Neutrophils (%) (Auto) 58 42-75 % Lymphocytes (%) (Auto) 34 12-44 % Monocytes (%) (Auto) 6 0-12 % Eosinophils (%) (Auto) 1 0-10 % Basophils (%) (Auto) 1 0-10 % Neutrophils # (Auto) 2.9 1.8-7.8 10^3/uL Lymphocytes # (Auto) 1.7 1.0-4.0 10^3/uL Monocytes # (Auto) 0.3 0.0-1.0 10^3/uL Eosinophils # (Auto) 0.1 0.0-0.3 10^3/uL Basophils # (Auto) 0.0 0.0-0.1 10^3/uL Immature Granulocyte # (Auto) 0.0 0.0-0.1 10^3/uL Prothrombin Time 14.3 12.2-14.7 SEC INR Comment 1.1 0.8-1.4 Activated Partial Thromboplast Time 29 24-35 SEC Sodium Level 144 135-145 MMOL/L Potassium Level 3.1 L 3.6-5.0 MMOL/L Chloride Level 106 98-107 MMOL/L Carbon Dioxide Level 17 L 21-32 MMOL/L Anion Gap 21 H 5-14 MMOL/L Blood Urea Nitrogen 7 7-18 MG/DL Creatinine 0.88 0.60-1.30 MG/DL Estimat Glomerular Filtration Rate 95 BUN/Creatinine Ratio 8 Glucose Level 182 H 70-105 MG/DL Calcium Level 8.3 L 8.5-10.1 MG/DL Corrected Calcium 8.6 8.5-10.1 MG/DL Magnesium Level 1.7 1.6-2.4 MG/DL Total Bilirubin 0.4 0.1-1.0 MG/DL Aspartate Amino Transf (AST/SGOT) 55 H 5-34 U/L Alanine Aminotransferase (ALT/SGPT) 47 0-55 U/L Alkaline Phosphatase 63 40-136 U/L Total Creatine Kinase 65 30-200 U/L Creatine Kinase MB 2.2 <6.6 NG/ML Myoglobin 30.2 10.0-92.0 NG/ML Troponin I < 0.028 < 0.028 <0.028 NG/ML B-Type Natriuretic Peptide 197.4 H <100.0 PG/ML Total Protein 6.6 6.4-8.2 GM/DL Albumin 3.6 3.2-4.5 GM/DL Amylase Level 46 25-125 U/L Lipase 40 8-78 U/L Serum Alcohol 132 H <10 MG/DL Urine Color YELLOW Urine Clarity CLEAR Urine pH 7.0 5-9 Urine Specific [place] 1.010 L 1.016-1.022 Urine Protein NEGATIVE NEGATIVE Urine Glucose (UA) TRACE H NEGATIVE Urine Ketones NEGATIVE NEGATIVE Urine Nitrite NEGATIVE NEGATIVE Urine Bilirubin NEGATIVE NEGATIVE Urine Urobilinogen 1.0 < = 1.0 MG/DL Urine Leukocyte Esterase NEGATIVE NEGATIVE Urine RBC (Auto) NEGATIVE NEGATIVE Urine RBC RARE /HPF Urine WBC NONE /HPF Urine Squamous Epithelial Cells RARE /HPF Urine Crystals PRESENT H /LPF Urine Calcium Oxalate Crystals FEW H /LPF Urine Bacteria NEGATIVE /HPF Urine Casts NONE /LPF Urine Mucus NEGATIVE /LPF Urine Culture Indicated NO Urine Opiates Screen NEGATIVE NEGATIVE Urine Oxycodone Screen NEGATIVE NEGATIVE Urine Methadone Screen NEGATIVE NEGATIVE Urine Propoxyphene Screen NEGATIVE NEGATIVE Urine Barbiturates Screen NEGATIVE NEGATIVE Ur Tricyclic Antidepressants Screen NEGATIVE NEGATIVE Urine Phencyclidine Screen NEGATIVE NEGATIVE Urine Amphetamines Screen NEGATIVE NEGATIVE Urine Methamphetamines Screen NEGATIVE NEGATIVE Urine Benzodiazepines Screen NEGATIVE NEGATIVE Urine Cocaine Screen NEGATIVE NEGATIVE Urine Cannabinoids Screen NEGATIVE NEGATIVE Physical Exam Physical Exam Vital Signs Vital Signs - First Documented Capillary Refill : Less Than 3 Seconds Height, Weight, BMI Height: 6'1.00" Weight: 211lbs. 0.5oz. 95.045744fr; 24.50 BMI Method:Stated General Appearance: No Apparent Distress, Chronically ill HEENT: PERRL/EOMI, Moist Mucous Membranes; No Scleral Icterus (L), No Scleral Icterus (R) Neck: Normal Inspection, Supple Respiratory: Lungs Clear, No Respiratory Distress Cardiovascular: Regular Rate, Rhythm, No Murmur Gastrointestinal: Normal Bowel Sounds, Non Tender, Soft Extremity: No Calf Tenderness, No Pedal Edema Neurologic/Psychiatric: Alert, Oriented x3, Normal Mood/Affect Skin: Normal Color, Warm/Dry A/P-Cardiology Admission Diagnosis Chest pain Alcoholism Congestive heart failure, chronic compensated left ventricular systolic dysfunction, alcoholic cardiomyopathy Hypertension Assessment/Plan Severe chest pain, recurrent episode of chest pain, underwent cardiac catheterization by Dr. Pink in June 2021 reporting mild coronary artery disease nonobstructive disease. Repeat cardiac catheterization was done on September 18, 2021 due to severe chest pain and severe deterioration in the left ventricular function. Mild coronary artery disease nonobstructive disease Chest pain is most probably noncardiac. I reassured the patient that he does not need any further cardiac work-up Syncope, multiple episodes over the past few months. Associated with severe chest pain. Unknown etiology Could be vasovagal or secondary to arrhythmia. Underlying malignant arrhythmia such as ventricular tachycardia cannot be excluded. Currently back in sinus rhythm. Recommend compliance with his LifeVest. Paroxysmal atrial fibrillation, Had been maintained on Coreg 3.125mg BID and Eliquis 5mg BID, questionable noncompliance, urged compliance with the patient. History of Frequent premature ventricular contractions Congestive heart failure, chronic compensated left ventricular systolic dysfunction, nonischemic cardiomyopathy 2D echocardiogram done on September 17, 2021 showing dilated left ventricle with diffuse left ventricular hypokinesia with segmental wall motion abnormality ejection fraction 25 to 30%, PA pressure 30 to 35 mmHg Patient was started on beta-blockers, Entresto on last visit, has been noncompliant at home. Received his LifeVest during the last admission Educated on compliance with medication [id number] score of 2, restarting Eliquis Thoracic aortic aneurysm, he had an aortic root measuring 4 cm on an echocardiogram at an outside hospital. Continue to monitor closely, planning to evaluate CTA chest Hypertension, monitor blood pressure after the medication changes Elevated liver enzymes, could be secondary to alcoholic hepatitis. Dementia, patient has significant memory loss. Tobaccoism, educated on smoking cessation Alcoholism. Started on thiamine, alcohol withdrawal precautions Hx pancreatitis Gastroesophageal reflux disease. Clinical Quality Measures AMI/AHF: ASA po Prior to arrival: Yes (ASA) AVRIL LEAL MD Oct 12, 2021 11:21
[2021-10-12] MEDS ORDERED: SACU1TAB2 PO (11:24)
[2021-10-12] MEDS ORDERED: APIX5TAB PO (11:24)
[2021-10-12] MEDS ORDERED: CARV3.122 PO (11:24)
[2021-10-12] MEDS ORDERED: CELE-63 PO (11:24)
--- NOTE | 2021-10-12 12:05 | Discharge Inst-Simple/Standard ---
Discharge Inst-Standard Patient Instructions/Follow Up Plan of Care/Instructions/FU: Please continue to take your medications as written. Please follow up with your primary care doctor and your associate professor of philosophy to follow up this hospital stay. Please do not continue to mix alcohol with your pain medications. Activity as Tolerated: Yes Discharge Diet: Cardiac Diet Return to The Hospital For: Chest pain, shortness of breath, weakness, confusion, syncope, if you feel you are getting worse. ANUSHA FLORES MD Oct 12, 2021 12:05
== END 2021-10-12 12:15 | disposition home or self-care (01) ==
LOC: EDUNIT# 23:06 → ER 23:08 → CSD 10-12 04:25
PROVIDERS: ADMIT Internal Medicine; ATTEND Internal Medicine
DX: R07.9 Chest pain, unspecified (principal); R55 Syncope and collapse; F10.20 Alcohol dependence, uncomplicated; I11.0 Hypertensive heart disease with heart failure; I50.22 Chronic systolic (congestive) heart failure; I42.6 Alcoholic cardiomyopathy; I25.10 Atherosclerotic heart disease of native coronary artery without angina pectoris; I48.0 Paroxysmal atrial fibrillation; I71.2 Thoracic aortic aneurysm, without rupture; R79.89 Other specified abnormal findings of blood chemistry; F03.90 Unspecified dementia, unspecified severity, without behavioral disturbance, psychotic disturbance, mood disturbance, and anxiety; K21.9 Gastro-esophageal reflux disease without esophagitis; F17.210 Nicotine dependence, cigarettes, uncomplicated; I49.3 Ventricular premature depolarization; I49.1 Atrial premature depolarization; I45.81 Long QT syndrome; Z91.14 Patient's other noncompliance with medication regimen; Z79.01 Long term (current) use of anticoagulants
CPT/HCPCS: 70450; 71045; 71275; 72125; 80053; 80306; 81000; 82150; 82550; 82553; 83690; 83735; 83874; 83880; 84484 ×2; 85025; 85610; 85730; 93005 ×2; 93041; 96374; 99284; G0378; G0480; 36415; 80320

== ENCOUNTER 2021-11-17 13:38 | Observation (INO) | payer MEDICARE ==
[~2021-11-17] VITALS: Ht 188 cm; Wt 100.0 kg
--- NOTE | 2021-11-17 13:58 | ED Chest Pain ---
General Chief Complaint: Chest Pain Stated Complaint: CHEST PAIN Nursing Triage Note: PT BROUGHT IN BY [facility] FROM HOME WITH COMPLAINT OF CP AND LEFT SIDED WEAKNESS. PT GIVEN 4 BABY ASPIRIN AND 1 INCH NITRO PASTE BY EMS. Source: patient Exam Limitations: no limitations History of Present Illness Date Seen by Provider: November 17, 2021 Time Seen by Provider: 14:01 Initial Comments Patient is a 66-year-old male with a history of hypertension, alcohol abuse, coronary artery disease who presents ED with chest pain, left-sided weakness. Chest pain started yesterday morning around 900 AM described as pressure, dull and achy and constant. Denies of any radiation. States around the same time started having left-sided weakness to his left arm, left face and left leg. This occurred when he stood up. Reports headache bilateral blurry vision. difficulty ambulating and moving his extremity on the left side from the weakness. Patient states he feels shaky. Reports history of alcohol abuse. No alcohol consumption today. Denies history of withdrawal from alcohol. Patient has associated shortness of breath and coughed up mucus. Patient is currently on Eliquis. Was admitted this past month. Patient had a cardiac catheterization in September that showed mild coronary artery disease. Patient with a history of similar type chest pain that believes this is noncardiac. History syncope concerning for possible abnormal arrhythmia. Patient is noncompliant wi th his medication. Patient smells of alcohol. Patient was given full aspirin and Nitropaste by EMS. Patient continued having left-sided chest pain. Patient reports similar episode 3 years ago states he had a mini stroke. Allergies and Home Medications Allergies Coded Allergies: Penicillins (Verified Allergy, Unknown, 10/17/13) morphine (Verified Allergy, Unknown, pt has received Hydromorphone in the past, 03/18/21) Patient Home Medication List Home Medication List Reviewed: Yes Apixaban (Eliquis) 5 Mg Tablet, 5 MG PO BID, (Reported) Entered as Reported by: AURORA GUAMAN on 10/12/21 1124 Carvedilol (Carvedilol) 3.125 Mg Tablet, 3.125 MG PO BID, (Reported) Entered as Reported by: AURORA GUAMAN on 10/12/21 1124 Celecoxib (Celecoxib) 200 Mg Capsule, 200 MG PO BID PRN for CHEST PAIN, (Reported) Entered as Reported by: AURORA GUAMAN on 10/12/211123 Sacubitril/Valsartan (Entresto 24 mg-26 mg Tablet) 1 Each Tablet, 1 TAB PO BID, (Reported) Entered as Reported by: AURORA GUAMAN on 10/12/211123 Review of Systems Review of Systems Constitutional: No chills, No diaphoresis, No malaise, No weakness EENTM: No Blurred Vision, No Eye Pain, No Ear Drainage, No Ear Pain, No Mouth Pain, No Throat Pain, No Throat Swelling Respiratory: Cough, Shortness of Air; Denies SOA With Exertion, Denies SOA at Rest Cardiovascular: Chest Pain; Denies Edema, Denies Irregular Heart Rate, Denies Lightheadedness, Denies Syncope Gastrointestinal: Denies Abdomen Distended, Denies Abdominal Pain, Denies Diarrhea; Nausea; Denies Vomiting Genitourinary: Denies Burning Musculoskeletal: No back pain, No joint pain, No joint swelling, No muscle pain Skin: No change in color, No change in hair/nails Psychiatric/Neurological: Denies Anxiety Endocrine: Denies Excessive Sweating All Other Systems Reviewed Negative Unless Noted: Yes Past Vqtlnvp-Nkkaug-Yzryvf Hx Patient Social History Tobacco Use?: Yes Tobacco type used: Cigarettes Use of E-Cig and/or Vaping dev: No Substance use?: No Alcohol Use?: Yes Pt feels they are or have been: No Immunizations Up To Date Tetanus Booster (TDap): Less than 5yrs PED Vaccines UTD: No First/Initial COVID19 Vaccinat: YES Second COVID19 Vaccination Loc: YES Third COVID19 Vaccination Date: YES Past Medical History Surgery/Hospitalization HX: orthopedic, heart cath, asthma, a-fib, pancreatitis, stroke, ch. back pain. Surgeries: Yes Cardiac, Orthopedic Respiratory: Yes (History of traumatic pneumothorax) Asthma Cardiac: Yes Atrial Fibrillation, Coronary Artery Disease, Heart Attack, High Cholesterol, Hypertension, Irregular Heartbeat Neurological: Yes (MILD RIGHT SIDE WEAKNESS) Stroke Genitourinary: No Gastrointestinal: Yes Pancreatitis, Gall Bladder Disease Musculoskeletal: Yes (MULTIPLE FRACTURES WITH REPAIRS) Back Injury, Chronic Back Pain, Fractures Endocrine: No HEENT: No Cancer: No Psychosocial: Yes (Alcohol dependence) Adverse Reaction/Blood Tranf: No Family Medical History History of - respiratory disease 03 FATHER (EMPHYSEMIA) No Pertinent Family Hx, GI Disease SOCIAL HISTORY: -SMOKES 1 PPD -DRUGS--DENIES USE -ETOH--HEAVY/DAILY USE--WILL NOT STATE HOW MUCH--DRINKS BEER + HARD LIQUOR PAST SURGICAL HISTORY: -CARDIAC CATHS--NO INTERVENTION CARDIAC CATH 09/18/[address] IRWIN: CONCLUSION: 1. Mild coronary artery disease nonobstructive disease 2. Nonischemic cardiomyopathy, elevated left ventricular end-diastolic pressure, known ejection fraction 25 to 30% per echocardiogram 3. Slightly prominent aortic arch, no dissection or aneurysm SUCCESSFUL CARDIOVERSION 09/28/[address] IRWIN FOR ATRIAL FIB/FLUTTER WITH RVR. -CHEST TUBE FOR TRAUMATIC PNEUMOTHORAX -MULTIPLE FRACTURE REPAIRS Physical Exam Vital Signs Vital Signs - First Documented 11/17/21 13:41 Temp 36.1 Pulse 97 Resp 14 B/P (MAP) 151/112 (125) Pulse Ox 96 O2 Delivery Room Air Capillary Refill : Less Than 3 Seconds Height, Weight, BMI Height: 6'1.00" Weight: 211lbs. 0.5oz. 95.656746po; 25.00 BMI Method:Stated General Appearance: No Apparent Distress, WD/WN HEENT: PERRL/EOMI, TMs Normal, Normal ENT Inspection, Pharynx Normal Neck: Full Range of Motion, Normal Inspection, Non Tender, Supple Respiratory: Chest Non Tender, Lungs Clear, Normal Breath Sounds, No Accessory Muscle Use Cardiovascular: Regular Rate, Rhythm, No Edema, No Gallop, No JVD, No Murmur Gastrointestinal: Normal Bowel Sounds, No Pulsatile Mass, Non Tender, Abnormal Bowel Sounds Extremity: Normal Capillary Refill, Normal Inspection, Normal Range of Motion, Non Tender Neurologic/Psychiatric: Alert, Oriented x3, No Motor/Sensory Deficits, Normal Mood/Affect, 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 bank 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 Norm as Tested Skin: Normal Color, Warm/Dry Progress/Results/Core Measures Results/Orders Lab Results Laboratory Tests Test 11/17/21 13:45 11/17/21 16:59 Range/Units White Blood Count 6.6 4.3-11.0 10^3/uL Red Blood Count 4.87 4.30-5.52 10^6/uL Hemoglobin 16.7 13.3-17.7 g/dL Hematocrit 49 40-54 % Mean Corpuscular Volume 100 H 80-99 fL Mean Corpuscular Hemoglobin 34 25-34 pg Mean Corpuscular Hemoglobin Concent 34 32-36 g/dL Red Cell Distribution Width 13.2 10.0-14.5 % Platelet Count 144 130-400 10^3/uL Mean Platelet Volume 11.3 9.0-12.2 fL Immature Granulocyte % (Auto) 0 % Neutrophils (%) (Auto) 72 42-75 % Lymphocytes (%) (Auto) 20 12-44 % Monocytes (%) (Auto) 8 0-12 % Eosinophils (%) (Auto) 0 0-10 % Basophils (%) (Auto) 1 0-10 % Neutrophils # (Auto) 4.8 1.8-7.8 10^3/uL Lymphocytes # (Auto) 1.3 1.0-4.0 10^3/uL Monocytes # (Auto) 0.5 0.0-1.0 10^3/uL Eosinophils # (Auto) 0.0 0.0-0.3 10^3/uL Basophils # (Auto) 0.0 0.0-0.1 10^3/uL Immature Granulocyte # (Auto) 0.0 0.0-0.1 10^3/uL Prothrombin Time 13.5 12.2-14.7 SEC INR Comment 1.0 0.8-1.4 Activated Partial Thromboplast Time 26 24-35 SEC Sodium Level 140 135-145 MMOL/L Potassium Level 3.9 3.6-5.0 MMOL/L Chloride Level 102 98-107 MMOL/L Carbon Dioxide Level 23 21-32 MMOL/L Anion Gap 15 H 5-14 MMOL/L Blood Urea Nitrogen 6 L 7-18 MG/DL Creatinine 0.84 0.60-1.30 MG/DL Estimat Glomerular Filtration Rate 97 BUN/Creatinine Ratio 7 Glucose Level 107 H 70-105 MG/DL Calcium Level 9.0 8.5-10.1 MG/DL Corrected Calcium 8.8 8.5-10.1 MG/DL Magnesium Level 1.5 L 1.6-2.4 MG/DL Total Bilirubin 1.0 0.1-1.0 MG/DL Aspartate Amino Transf (AST/SGOT) 52 H 5-34 U/L Alanine Aminotransferase (ALT/SGPT) 36 0-55 U/L Alkaline Phosphatase 67 40-136 U/L Myoglobin 55.6 10.0-92.0 NG/ML Troponin I 0.038 H 0.032 H <0.028 NG/ML B-Type Natriuretic Peptide 108.9 H <100.0 PG/ML Total Protein 7.8 6.4-8.2 GM/DL Albumin 4.3 3.2-4.5 GM/DL Lipase 17 8-78 U/L Serum Alcohol 49 H <10 MG/DL My Orders Orders - JAKE MAHER PA Cbc With Automated Diff (11/17/21 13:54) Magnesium (11/17/21 13:54) Chest 1 View, Ap/Pa Only (11/17/21 13:54) Ekg Tracing (11/17/21 13:54) Comprehensive Metabolic Panel (11/17/21 13:54) Myoglobin Serum (11/17/21 13:54) Protime With Inr (11/17/21 13:54) Partial Thromboplastin Time (11/17/21 13:54) Monitor-Rhythm Ecg Trace Only (11/17/21 13:54) Lipid Panel (11/18/21 06:00) Ed Iv/Invasive Line Start (11/17/21 13:54) Lipase (11/17/21 13:54) Bnp Nancy (11/17/21 13:54) Troponin I [place] (11/17/21 13:54) Aspirin Chewable Tablet (Baby Aspirin Ch (11/17/21 14:00) Ct Head Wo (11/17/21 13:54) Alcohol (11/17/21 13:57) Drug Screen Stat (Urine) (11/17/21 13:57) Lorazepam Injection (Ativan Injection) (11/17/21 14:30) Ns Iv 1000 Ml (Sodium Chloride 0.9%) (11/17/21 14:23) Ct Angio Head/Neck (11/17/21 15:15) Iohexol Injection (Omnipaque 350 Mg/Ml 1 (11/17/21 15:45) Received Contrast (Hold Metformin- Contr (11/17/21 15:45) Ns (Ivpb) (Sodium Chloride 0.9% Ivpb Bag (11/17/21 15:45) Sodium Chloride Flush (Catheter Flush Sy (11/17/21 15:45) Troponin I [place] (11/17/21 16:42) Iohexol Injection (Omnipaque 350 Mg/Ml 1 (11/17/21 16:45) Received Contrast (Hold Metformin- Contr (11/17/21 16:45) Sodium Chloride Flush (Catheter Flush Sy (11/17/21 16:45) Ed Admission (Communication) (11/17/21 17:13) Medications Given in ED Current Medications Medications Dose Ordered Sig/Yoseph Route Start Time Stop Time Status Last Admin Dose Admin Iohexol 75 ml ONCE ONCE IV 11/17/21 15:45 11/17/21 15:46 DC 11/17/21 16:47 75 ML Lorazepam 1 mg ONCE ONCE IVP 11/17/21 14:30 11/17/21 14:31 DC 11/17/21 14:54 1 MG Sodium Chloride 10 ml NEEDED PRN IV 11/17/21 15:45 11/17/21 16:49 10 ML Sodium Chloride 100 ml ONCE ONCE IV 11/17/21 15:45 11/17/21 15:46 DC 11/17/21 16:49 80 ML Vital Signs/I&O 11/17/21 13:41 Temp 36.1 Pulse 97 Resp 14 B/P (MAP) 151/112 (125) Pulse Ox 96 O2 Delivery Room Air Blood Pressure Mean: 125 Departure Communication (PCP) Patient with a history of alcoholic cardiomyopathy presents ED with chest pain left-sided weakness. Started around 9:00 yesterday. He states this occurred when he stood up. Has headache bilateral blurry vision. NIH 7 secondary to muscle weakness on the left side and sensory changes. Patient denied of any alcohol but did have a elevated alcohol level. Did smell of alcohol. States he has had left-sided weakness before diagnosed with TIA. Patient is not a tPA candidate. Symptoms past [address] scan of the head unremarkable. Patient EKG showed sinus rhythm without evidence of ST elevation or pression. Had a cardiac catheterization by Dr. Irwin in October that showed mild coronary artery disease without any obstructive pattern. Initial troponin slightly bumped with a history of slightly elevated troponin which appears to be close to his baseline. BNP normal. Was given a dose of fentanyl. Aspirin and Nitropaste was given in route. Chest x-ray was negative for pneumonia, pneumothorax. Normal white blood count. Normal electrolytes and kidney function. Normal lipase. Coughing up mucus. CT angio head and neck negative for severe stenosis. Patient magnesium 1.5. Supplement magnesium. Slight elevated BNP. Trending troponin at 3 hours was decreased. Due to patient's current symptoms and complaints recommend further evaluation for his strokelike symptoms. This was discussed with Dr. Olson. Did recheck patient and had some improvement of his muscle strength. He states he report more numbness and tingling. Patient was slightly shaky was given Ativan. Denies history of alcohol withdrawal seizures. History of alcohol withdrawal. History of leaving AMA in the past. Discussed admission and patient agrees. Patient will be excepted by Dr. Olson. Patient had a CT angio of his chest last month without evidence of aneurysm or dissection Impression Primary Impression: Stroke-like symptoms Additional Impression: Chest pain Disposition: ADMITTED INPATIENT Condition: Stable Admissions Decision to Admit Reason: Admit from ER (General) Decision to Admit/Date: November 17, 2021 Time/Decision to Admit Time: 17:12 Departure-Patient Inst. Referrals: PATRICE KENDALL APRN (PCP/Family) Primary Care Physician JAKE MAHER November 17, 2021 13:58
[2021-11-17] MEDS ORDERED: ASPIRIN 81 MG CHEW (CHILDREN'S ASA) PO ONE (14:00)
[2021-11-17 14:02] LABS: BASOPHILS % (AUTO) 1 % (0-10); EOSINOPHILS % (AUTO) 0 % (0-10); HEMATOCRIT 49 % (40-54); HEMOGLOBIN 16.7 g/dL (13.3-17.7); LYMPHOCYTES # (AUTO) 1.3 10^3/uL (1.0-4.0); LYMPHOCYTES % (AUTO) 20 % (12-44); MEAN CORPUSCULAR HEMOGLOBIN 34 pg (25-34); MEAN CORPUSCULAR HGB CONC 34 g/dL (32-36); MEAN CORPUSCULAR VOLUME 100 fL (80-99); MEAN PLATELET VOLUME 11.3 fL (9.0-12.2); MONOCYTES # (AUTO) 0.5 10^3/uL (0.0-1.0); MONOCYTES % (AUTO) 8 % (0-12); NEUTROPHILS # (AUTO) 4.8 10^3/uL (1.8-7.8); NEUTROPHILS % (AUTO) 72 % (42-75); PLATELET COUNT 144 10^3/uL (130-400); WHITE BLOOD COUNT 6.6 10^3/uL (4.3-11.0)
[2021-11-17 14:07] LABS: ALBUMIN 4.3 GM/DL (3.2-4.5); POTASSIUM 3.9 MMOL/L (3.6-5.0)
[2021-11-17 14:10] LABS: TOTAL PROTEIN 7.8 GM/DL (6.4-8.2)
[2021-11-17 14:12] LABS: PROTHROMBIN TIME PATIENT 13.5 SEC (12.2-14.7)
[2021-11-17 14:13] LABS: CREATININE SERUM 0.84 MG/DL (0.60-1.30)
[2021-11-17 14:16] LABS: MAGNESIUM 1.5 MG/DL (1.6-2.4)
[2021-11-17] MEDS ORDERED: NS IV 1000 ML 1,000 ML IV STA (14:23)
--- NOTE | 2021-11-17 14:23 | Diagnostic Imaging Report ---
INDICATION: Chest pain. COMPARISON: 10/11/2021. FINDINGS: Two frontal radiographic views of the chest were obtained and demonstrate normal heart size and pulmonary vascularity. The lungs are well aerated and clear. No large pleural effusion or pneumothorax is seen. The visualized osseous structures show no acute abnormalities. IMPRESSION: 1. No acute cardiopulmonary process. Dictated by: Dictated on workstation # [id number]
[2021-11-17] MEDS ORDERED: LORazepam INJ 2 MG/ML (ATIVAN) VIAL IVP ONE (14:30)
--- NOTE | 2021-11-17 14:59 | Diagnostic Imaging Report ---
EXAMINATION: CT head without contrast. TECHNIQUE: Multiple contiguous axial images were obtained through the brain without the use of intravenous contrast. All CT scans use one or more of the following dose optimizing techniques: automated exposure control, MA and/or KvP adjustment based on patient size and exam type or iterative reconstruction. HISTORY: left sided weakness COMPARISON: 10/11/2021. FINDINGS: The ventricles and sulci are normal. No abnormal attenuation of brain parenchyma is present. No acute intracranial hemorrhage or abnormal extra-axial fluid collections are present. Calcification of the intracranial ICAs. No hyperdense vessel. The calvarium is intact. The mastoid air cells are clear. The visualized paranasal sinuses are clear. The orbits are normal. IMPRESSION: 1. No acute intracranial abnormality. Dictated by: Dictated on workstation # [id number]
[2021-11-17] MEDS ORDERED: NS 100 ML (IVPB) BAG IV ONE (15:45)
[2021-11-17] MEDS ORDERED: IOHEXOL 350 MG/ML 100 ML (OMNIPAQUE 350) VIAL IV ONE ×2 (15:45→16:45)
[2021-11-17] MEDS ORDERED: HOLD METFORMIN - RECEIVED CONTRAST 20 ML VIAL IV SCH ×2 (15:45→16:45)
[2021-11-17] MEDS ORDERED: CATHETER FLUSH 10 ML SYR IV PRN ×2 (15:45→16:45)
--- NOTE | 2021-11-17 16:55 | Diagnostic Imaging Report ---
PROCEDURE: CT angiography of the head and CT angiography of the neck with and without contrast. TECHNIQUE: Contiguous noncontrast images were obtained from the skull base through the vertex. After intravenous contrast administration, helical CT angiography of the neck was performed. Source data was reformatted into 3D MIP projections. Delayed postcontrast acquisition was also obtained. Auto Exposure Controls were utilized during the CT exam to meet ALARA standards for radiation dose reduction. INDICATION: Chest pain, left-sided weakness. COMPARISONS: CT head 11/17/2021. FINDINGS: There is a type II aortic arch. Both common carotid arteries are widely patent. Carotid bifurcations show calcified plaque but no evidence of hemodynamically significant stenosis. The cervical, high cervical, petrous, cavernous, and supraclinoid segments of both ICA are widely patent. The A1 and A2 segments of both CARL, M1, M2, and M3 trifurcation vessels of both MCA show contrast opacification with no large vessel or medium vessel occlusion seen. The vertebral arteries are codominant and are patent to the skull base. The PICA, basilar artery, AICA, SCA, and airframe technical officer are unremarkable. Lung apices are clear. Superior mediastinum is unremarkable. Parapharyngeal and paraspinous soft tissues are unremarkable. There is moderate cervical spondylosis, most severe at C6-C7. 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 IMPRESSION: 1. There is no large vessel or medium vessel occlusion seen in the intracranial circulation. 2. There is bilateral carotid bifurcation disease with calcific atherosclerosis but no evidence of hemodynamically significant stenosis. 3. There is moderate cervical spondylosis, most severe at C6-C7. 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 Additional nonemergent findings as described above. Dictated by: Dictated on workstation # [id number]
[2021-11-17] MEDS ORDERED: LORazepam INJ 2 MG/ML (ATIVAN) VIAL IV PRN (19:00)
[2021-11-17] MEDS ORDERED: LORazepam INJ 2 MG/ML (ATIVAN) VIAL IM/IV PRN (19:00)
[2021-11-17] MEDS ORDERED: D5 1/2 NS 1000 ML IV SOLUTION 1,000 ML IV PRN (19:00)
[2021-11-17] MEDS ORDERED: ACETAMINOPHEN 325 MG TABLET PO PRN (19:00)
[2021-11-17] MEDS ORDERED: ONDANSETRON 4 MG/2 ML (SDV) Z0FRAN IV PRN (19:00)
[2021-11-17] MEDS ORDERED: LORazepam 1 MG (ATIVAN) TAB PO PRN (19:00)
[2021-11-17] MEDS ORDERED: ONDANSETRON 4 MG (ZOFRAN) ORAL DISSOLVE TAB PO PRN (19:00)
[2021-11-17] MEDS ORDERED: 1/2 NS IV SOLUTION 1,000 ML IV PRN (19:00)
[2021-11-17] MEDS ORDERED: diphenhydrAMINE 25 MG TAB (BENADRYL) PO PRN (19:00)
[2021-11-17] MEDS ORDERED: SENNA W/DOCUSATE (SENOKOT S) TABLET PO PRN (19:00)
[2021-11-17] MEDS ORDERED: polyethylene glycoL POWDER 17 GM (MIRALAX) PACK PO PRN (19:00)
[2021-11-17] MEDS ORDERED: ANTACID SUSP 30 ML UDC (MYLANTA) PO PRN ×2 (19:00)
[2021-11-17 19:01] LABS: AMPHETAMINE SCREEN, URINE NEGATIVE (NEGATIVE); BARBITURATE SCREEN URINE NEGATIVE (NEGATIVE); BENZODIAZEPINES SCREEN URINE POSITIVE (NEGATIVE); CANNABINOID SCREEN, URINE NEGATIVE (NEGATIVE); COCAINE SCREEN URINE NEGATIVE (NEGATIVE); METHADONE STAT NEGATIVE (NEGATIVE); OPIATE SCREEN URINE NEGATIVE (NEGATIVE); OXYCODONE STAT NEGATIVE (NEGATIVE); PROPOXYPHENE STAT NEGATIVE (NEGATIVE); TRICYCLIC ANTIDEPRESSANTS SCRE NEGATIVE (NEGATIVE)
[2021-11-17 19:33] VITALS: BP 150/81
[2021-11-17 20:22] VITALS: BP 151/112
[2021-11-17] MEDS ORDERED: RT-ALBUTEROL SULF 2.5 MG/3 ML PRE-MIX VIAL INH PRN (20:30)
[2021-11-17] MEDS: MAGNESIUM OXIDE (MAG-OX)400 MG TAB PO SCH (21:31)
[2021-11-17] MEDS: MELATONIN 3 MG TABLET PO PRN (21:32)
[2021-11-18] VITALS (7 sets, daily range): BP systolic 125–144; BP diastolic 76–92
[2021-11-18 07:59] LABS: HEMOGLOBIN 15.2 g/dL (13.3-17.7); LYMPHOCYTES # (AUTO) 1.5 10^3/uL (1.0-4.0); LYMPHOCYTES % (AUTO) 28 % (12-44)
[2021-11-18 08:01] LABS: BASOPHILS % (AUTO) 0 % (0-10); EOSINOPHILS # (AUTO) 0.1 10^3/uL (0.0-0.3); EOSINOPHILS % (AUTO) 1 % (0-10); HEMATOCRIT 45 % (40-54); MEAN CORPUSCULAR HEMOGLOBIN 35 pg (25-34); MEAN CORPUSCULAR HGB CONC 34 g/dL (32-36); MEAN CORPUSCULAR VOLUME 102 fL (80-99); MEAN PLATELET VOLUME 12.2 fL (9.0-12.2); MONOCYTES # (AUTO) 0.5 10^3/uL (0.0-1.0); MONOCYTES % (AUTO) 9 % (0-12); NEUTROPHILS # (AUTO) 3.3 10^3/uL (1.8-7.8); NEUTROPHILS % (AUTO) 61 % (42-75); PLATELET COUNT 102 10^3/uL (130-400); WHITE BLOOD COUNT 5.4 10^3/uL (4.3-11.0)
[2021-11-18 08:10] LABS: SMEAR SCAN COMMENT YES
[2021-11-18 08:15] LABS: CALCIUM 8.7 MG/DL (8.5-10.1); CREATININE SERUM 0.77 MG/DL (0.60-1.30); MAGNESIUM 1.9 MG/DL (1.6-2.4); PHOSPHORUS 3.1 MG/DL (2.3-4.7); POTASSIUM 3.9 MMOL/L (3.6-5.0)
[2021-11-18 08:16] LABS: CHOLESTEROL 189 MG/DL (< 200); HDL CHOLESTEROL 69 MG/DL (40-60); TRIGLYCERIDES 88 MG/DL (<150); VLDL CHOLESTEROL 18 MG/DL (5-40)
[2021-11-18] MEDS ORDERED: ASPIRIN 81 MG CHEW (CHILDREN'S ASA) PO SCH (09:00)
[2021-11-18] MEDS: THIAMINE INJECTION 100 MG, FOLIC ACID INJECTION 1 MG, MAGNESIUM SULFATE 2 GM, VITAMIN M... IV SCH ×5 (09:22)
[2021-11-18] MEDS: MULTIVIT W/MINERALS TAB (THERAGRAN M) PO SCH (09:27)
[2021-11-18] MEDS: SACUBITRIL/VALSARTAN 24/26 MG (ENTRESTO) TABLET PO SCH ×2 (09:27→20:46)
[2021-11-18] MEDS: ASPIRIN 81 MG CHEW (CHILDREN'S ASA) PO SCH (09:27)
[2021-11-18] MEDS: MAGNESIUM OXIDE (MAG-OX)400 MG TAB PO SCH ×2 (09:28→17:21)
[2021-11-18] MEDS: FOLIC ACID 1 MG TAB PO SCH (09:28)
[2021-11-18] MEDS: THIAMINE 100 MG (VITAMIN B-1) TAB PO SCH (09:28)
[2021-11-18] MEDS: POTASSIUM CL 10MEQ/50ML IVPB 50 ML IV SCH (09:30)
[2021-11-18] MEDS: APIXABAN 5 MG (ELIQUIS) TABLET PO SCH ×2 (09:30→20:46)
[2021-11-18] MEDS: KCL 20 MEQ TAB (K-DUR) PO SCH (09:31)
--- NOTE | 2021-11-18 09:48 | Physical Therapy Evaluation ---
PT Evaluation-General Medical Diagnosis Admission Date November 17, 2021 at 17:14 Medical Diagnosis: CP/stroke like symptoms Onset Date: November 17, 2021 Therapy Diagnosis Therapy Diagnosis: debility/weakness Height/Weight Height (Feet): 6 Height (Inches): 1.00 Weight (Pounds): 211 Weight (Ounces): 0.5 Precautions Precautions/Isolations: Seizure, Fall Prevention, Standard Precautions Referral Physician: Whitney Medical History Pertinent Medical History: Atrial Fib, Alcoholism, CVA, Fractures, Smoking Current History EMS secondary to left side weakness Reviewed History: Yes Social History Home: Apartment Prior Prior Level of Function SCALE: Activities may be completed with or without assistive devices. 7-Azpyljbcff-qhlubtf completes the activity by him/herself with no assistance from a helper. 5-Set-up or Clean-up Assistance-helper sets up or cleans up; patient completes activity. [place] assists only prior to or following the activity. 4-Supervision or Touching Assistance-helper provides verbal cues and/or touching/steadying and/or contact guard assistance as patient completes activity. Assistance may be provided throughout the activity or intermittently. 3-Partial/Moderate Assistance-helper does LESS THAN HALF the effort. [place] lifts, holds or supports trunk or limbs, but provides less than half the effort. 2-Substantial/Maximal Assistance-helper does MORE THAN HALF the effort. [place] lifts or holds trunk or limbs and provides more than half the effort. 4-Srylrcllf-pigqvn does ALL the effort. Patient does none of the effort to complete the activity. Or, the assistance of 2 or more helpers is required for the patient to complete the activity. If activity was not attempted, code reason: 7-Patient Refused. 9-Not Applicable-not attempted and the patient did not perform the activity before the current illness, exacerbation or injury. 10-Not Attempted due to Environmental Limitations-(lack of equipment, weather restraints, etc.). 88-Not Attempted due to Medical Conditions or Safety Concerns. Bed Mobility: 6 Transfers (B,C,W/C): 6 Gait: 6 Stairs: 6 Indoor Mobility (Ambulation): Independent Stairs: Independent Prior Devices Use: Other-see list below Prior Device Use: SPC PT Evaluation-Current Subjective Patient states, "My left side doesn't work." Objective Patient Orientation: Normal For Age ROM/Strength ROM Lower Extremities bilateral LE WFL Strength Lower Extremities right LE 4/5 knee flexion/extension; 4/5 hip flexion/4/5 DF/PF left LE 4/5 knee flexion/extension; 4/5 hip flexion; 4/5 DF/PF Integumentary/Posture Bowel Incontinence: No Bladder Incontinence: No Posture WFL Neuromuscular (Tone, Coordination, Reflexes) Noted tremors in stand, however, they did cease with ambulation Sensory Vision: Functional Hearing: Functional Transfers Sit to Lying (QC): 6 Lying to Sitting/Side of Bed(Q: 6 Sit to Stand (QC): 4 Gait Walk 10 feet (QC): 4 Walk 50 ft with 2 Turns(QC): 7 Walk 150 ft (QC): 7 Distance: 10' Gait Assistive Device: Cane Single Point Comments/Gait Description patient ceased ambulation/functional gait sequence Balance Sitting Static: Normal Sitting Dynamic: Normal Standing Static: Fair Standing Dynamic: Fair Assessment/Needs Patient very inconsistent with MMT, mobility and transfers. Patient attempted to not use left LE/UE, however, when distracted, able to independently perform activity. Rehab Potential: Fair PT Machine Spreader Goals Prison Goals PT Machine Spreader Goals Time Frame: November 26, 2021 Roll Left & Right (QC): 6 Sit to Lying (QC): 6 Lying-Sitting on Side/Bed(QC): 6 Sit to Stand (QC): 6 Chair/Bhx-hm-Jurnq Xfer(QC): 6 Toilet Transfer (QC): 6 Walk 10 feet (QC): 6 Walk 50ft with 2 Turns (QC): 6 Walk 150 ft (QC): 6 PT Plan Problem List Problem List: Functional Strength, Safety, Balance, Gait, Transfer Treatment/Plan Treatment Plan: Continue Plan of Care Treatment Plan: Education, Functional Activity Giovanni, Functional Strength, Gait, Safety, Therapeutic Exercise, Transfers Treatment Duration: November 26, 2021 Frequency: 6 times per week Estimated Hrs Per Day: .25 hour per day Time/GCodes Time In: 900 Time Out: 910 Total Billed Treatment Time: 10 Total Billed Treatment 1 visit EVModC 10 min SHIRA FIELDS PT November 18, 2021 09:48
[2021-11-18] MEDS: MAGNESIUM 1 GM/100 ML IVPB 100 ML IV SCH (09:57)
[2021-11-18] MEDS ORDERED: ANTACID SUSP 30 ML UDC (MYLANTA) PO ONE (10:30)
[2021-11-18] MEDS ORDERED: LIDOCAINE 2% VISCOUS 15 ML UDC PO ONE (10:30)
[2021-11-18] MEDS ORDERED: PANTOPRAZOLE 40 MG (PROTONIX) VIAL IV ONE (10:30)
--- NOTE | 2021-11-18 11:20 | Occupational Therapy Eval ---
OT Evaluation-General/PLF Medical Diagnosis Admission Date November 17, 2021 at 17:14 Medical Diagnosis: CP/stroke like symptoms Onset Date: November 17, 2021 Therapy Diagnosis Therapy Diagnosis: decreased ADL status Height/Weight Height (Feet): 6 Height (Inches): 1.00 Weight (Pounds): 211 Weight (Ounces): 0.5 Precautions Precautions/Isolations: Seizure, Fall Prevention, Standard Precautions Referral Physician: Whitney Medical History Pertinent Medical History: Atrial Fib, Alcoholism, CVA, Fractures, Smoking Additional Medical History HTN, alcohol abuse, CAD, afib, CVA, asthma Current History EMS from home, c/o chest pain and weakness Social History Home: Apartment ADL-Prior Level of Function SCALE: Activities may be completed with or without assistive devices. 1-Mrbtauyrxb-zxgoodx completes the activity by him/herself with no assistance from a helper. 5-Set-up or Clean-up Assistance-helper sets up or cleans up; patient completes activity. Willard assists only prior to or following the activity. 4-Supervision or Touching Assistance-helper provides verbal cues and/or touching/steadying and/or contact guard assistance as patient completes activity. Assistance may be provided throughout the activity or intermittently. 3-Partial/Moderate Assistance-helper does LESS THAN HALF the effort. Willard lifts, holds or supports trunk or limbs, but provides less than half the effort. 2-Substantial/Maximal Assistance-helper does MORE THAN HALF the effort. Willard lifts or holds trunk or limbs and provides more than half the effort. 5-Ypyoknsvr-eozkxq does ALL the effort. Patient does none of the effort to complete the activity. Or, the assistance of 2 or more helpers is required for the patient to complete the activity. If activity was not attempted, code reason: 7-Patient Refused. 9-Not Applicable-not attempted and the patient did not perform the activity before the current illness, exacerbation or injury. 10-Not Attempted due to Environmental Limitations-(lack of equipment, weather restraints, etc.). 88-Not Attempted due to Medical Conditions or Safety Concerns. ADL PLOF Comments Pt reports being independent with ADLs and functional mobility at PLOF using SPC Self Care: Independent Functional Cognition: Independent OT Current Status Subjective Pt in bed, agreeable to OT evaluation. Pt initially declined completing tasks, when OT told pt she would leave his room due to him refusing, he states "don't put words in my mouth, I never refused" Current Upper Extremity ROM Decreased LUE, pt appears to be self-limiting. When OT entered room, pt raised LUE off of bed and pointed towards IV pole due to beeping. Later with UE screen, pt unable to flex shoulder in order to raise L arm off of bed (pt appeared to perform scapular retraction, pressing L shoulder blade into bed and not activating shoulder flexors), & he only performed elbow flexion to approx 90 degrees. RUE WFL Upper Extremity Strength Unable to formally assess due to pt appearing to self limit movement and not giving full effort with testing/movements ADL-Treatment Eating (QC): 5 (Pt reports able to eat pudding with spoon, assist with opening container.) Upper Body Dressing (QC): 3 (Pt able to don/doff covered button maker shirt overhead and RUE. Pt refused to attempt LUE.) On/Off Footwear (QC): 5 (set up assist at bed level.) Other Treatments Pt in bed, agreeable to OT evaluation with encouragement. Pt states he is tired and didn't get good rest last night, wanting to rest at this time. OT informed pt about benefits/purpose of OT, he eventually agreed. OT encouraged pt to complete ADLs, but he declined. He did not want to get out of bed. OT encouraged pt to don shirt, but he declined. OT informed pt that she would leave due to him refusing, he states he never refused and not to put words in his mouth. Pt then able to don/doff shirt overhead and RUE, refused attempting LUE. Pt donned footwear in bed after set up, able to pull himself up in long sitting position and maintain position while completing footwear, no assistance for balance. Pt d offed footwear independently. OT educated pt on using LUE during day as much as possible, he verbalized understanding. Post tx, pt in bed, call light in reach and all needs met, nurse present. Education OT Patient Education: Correct positioning, Modified ADL techniques, Progress toward Goal/Update tx plan, Purpose of tx/functional activities, Rehab process Teaching Recipient: Patient Teaching Methods: Discussion Response to Teaching: Reinforcement Needed OT Prison Goals Prison Goals Time Frame: November 25, 2021 Eating (QC): 6 Oral Hygiene (QC): 6 Toileting Hygiene (QC): 6 Shower/Bathe Self (QC): 6 Upper Body Dressing (QC): 6 Lower Body Dressing (QC): 6 On/Off Footwear (QC): 6 Additional Goals: 1-Demonstrate ADL Tasks, 2-Verbalize Understanding, 3- ImproveStrength/Giovanni 1=Demonstrate adherence to instructed precautions during ADL tasks. 2=Patient will verbalize/demonstrate understanding of assistive devices/modifications for ADL. 3=Patient will improve strength/tolerance for activity to enable patient to perform ADL's. OT Education/Plan Problem List/Assessment Assessment: Decreased Activ Tolerance, Decreased UE Strength, Impaired I ADL's, Impaired Self-Care Skills, Restricted Funct UE ROM Discharge Recommendations Plan/Recommendations: Continue POC Treatment Plan/Plan of Care Patient would benefit from OT for education, treatment and training to promote independence in ADL's, mobility, safety and/or upper extremity function for ADL's. Plan of Care: ADL Retraining, Functional Mobility, UE Funct Exercise/Act, UE Neuromus Re-Ed/Coord Treatment Duration: November 25, 2021 Frequency: 3 times per week (3-5 times per week) Estimated Hrs Per Day: .25 hour per day Rehab Potential: Fair Time/GCodes Start Time: 10:34 Stop Time: 10:47 Total Time Billed (hr/min): 13 Billed Treatment Time 1, AGUSTÍN REDMAN OT November 18, 2021 11:19
--- NOTE | 2021-11-18 12:31 | Diagnostic Imaging Report ---
PROCEDURE: MR imaging of the brain without contrast. TECHNIQUE: Multiplanar, multisequence MR imaging of the brain was performed without contrast. INDICATION: Stroke. COMPARISON: CTA head and neck 11/17/2021. FINDINGS: Examination is limited by motion and was also terminated early due to patient unable to complete the exam. Moderate generalized parenchymal volume loss. The T2 FLAIR and T1 sequences are nondiagnostic. Restricted water diffusion signal in the central luis and midbrain is due to artifact. No other restricted water diffusion. No hydrocephalus or extra-axial fluid collections are identified. Normal intracranial flow voids. The orbits are unremarkable. Mild mucosal thickening left maxillary sinus. Mastoids appear clear. Normal bone marrow signal. IMPRESSION: 1. Limited exam as above. 2. No evidence of an acute infarction. Dictated by: Dictated on workstation # [id number]
--- NOTE | 2021-11-18 13:04 | History & Physical-Hospitalist ---
History of Present Illness HPI/Chief Complaint Chivo Phan is a 66 year old male with PMH HTN, CAD, AFib, HFrEF, alcohol abuse, tobacco abuse, GERD, who presented with chest pain. He says it started when he got out of bed. It is located in the center of his chest and does not radiate. He reports associated shortness of breath. He denies nausea and vomiting. He denies diaphoresis. At the same time, he noticed left sided weakness. He denies difficulty speaking or swallowing. He also says he passed out from the pain. He reports that he has been taking his medicines. His refill history is inconsistent with his report and indicates non-adherence to his medication regimen. Source: patient Exam Limitations: no limitations Date Seen 11/18/21 Time Seen by a Provider: 10:15 Attending Physician Celina Manriquez MD PCP No,Local Physician Referring Physician Date of Admission November 17, 2021 at 17:14 Home Medications & Allergies Home Medications Reviewed patient Home Medication Reconciliation performed by pharmacy medication reconciliations gis mapping technician and/or nursing. Patients Allergies have been reviewed. Allergies Allergies Coded Allergies Penicillins (Verified Allergy, Unknown, 10/17/13) morphine (Verified Allergy, Unknown, pt has received Hydromorphone in the past, 03/18/21) Past Qjeqpsu-Rbpiao-Qdqdxo Hx Patient Social History Tobacco Use?: Yes Tobacco type used: Cigarettes Smoking Status: Current Someday Smoker Use of E-Cig and/or Vaping dev: No Substance use?: No Alcohol Use?: Yes Alcohol type: Hard Liquor Additional alcohol type: whiskey Alcohol Frequency: Several times a month Pt feels they are or have been: No Immunizations Up To Date First/Initial COVID19 Vaccinat: YES Second COVID19 Vaccination Loc: YES Tetanus Booster (TDap): Unknown Hepatitis A: Yes Hepatitis B: Yes PED Vaccines UTD: No Date of Pneumonia Vaccine: Jan 06, 1971 Current Status Advance Directives: No Communicates: Verbally Primary Language: Danish Preferred Spoken Language: Danish Is interpretation needed?: No Implanted or Applied Medical D: None Past Medical History Surgeries: Cardiac, Orthopedic Asthma Atrial Fibrillation, Coronary Artery Disease, Heart Attack, High Cholesterol, Hypertension, Irregular Heartbeat Stroke Pancreatitis, Gall Bladder Disease Back Injury, Chronic Back Pain, Fractures Adverse Reaction/Blood Tranf: No Family Medical History History of - respiratory disease 03 FATHER (EMPHYSEMIA) No Pertinent Family Hx, GI Disease SOCIAL HISTORY: -SMOKES 1 PPD -DRUGS--DENIES USE -ETOH--HEAVY/DAILY USE--WILL NOT STATE HOW MUCH--DRINKS BEER + HARD LIQUOR PAST SURGICAL HISTORY: -CARDIAC CATHS--NO INTERVENTION CARDIAC CATH 09/18/[address] LEAL: CONCLUSION: 1. Mild coronary artery disease nonobstructive disease 2. Nonischemic cardiomyopathy, elevated left ventricular end-diastolic pressure, known ejection fraction 25 to 30% per echocardiogram 3. Slightly prominent aortic arch, no dissection or aneurysm SUCCESSFUL CARDIOVERSION 09/28/[address] LEAL FOR ATRIAL FIB/FLUTTER WITH RVR. -CHEST TUBE FOR TRAUMATIC PNEUMOTHORAX -MULTIPLE FRACTURE REPAIRS Review of Systems Constitutional: dizziness, weakness EENTM: no symptoms reported Respiratory: short of breath Cardiovascular: chest pain Gastrointestinal: no symptoms reported Genitourinary: no symptoms reported Musculoskeletal: no symptoms reported Skin: no symptoms reported Psychiatric/Neurological: No Symptoms Reported Physical Exam Physical Exam Vital Signs Vital Signs - First Documented 11/17/21 11/17/21 11/17/21 13:41 19:55 20:22 Temp 36.1 Pulse 97 Resp 14 B/P (MAP) 151/112 (125) Pulse Ox 96 O2 Delivery Room Air O2 Flow Rate 0.00 FiO2 21 Capillary Refill : Less Than 3 Seconds Height, Weight, BMI Height: 6'1.00" Weight: 211lbs. 0.5oz. 95.783314lb; 28.29 BMI Method:Stated General Appearance: No Apparent Distress, WD/WN HEENT: PERRL/EOMI, Pharynx Normal Neck: Normal Inspection, Supple Respiratory: Chest Non Tender, Lungs Clear, Normal Breath Sounds, No Respiratory Distress Cardiovascular: Regular Rate, Rhythm, No Edema, No Murmur, Normal Peripheral Pulses Gastrointestinal: Normal Bowel Sounds, Non Tender, Soft Extremity: Normal Inspection, Non Tender, No Pedal Edema Neurologic/Psychiatric: Alert, Oriented x3, Motor Weakness Skin: Normal Color, Warm/Dry Results Results/Procedures Labs Laboratory Tests 11/17/21 13:45 11/18/21 07:45 Patient resulted labs reviewed. Imaging: Reviewed Imaging Report Assessment/Plan Admission Diagnosis Chest pain Admission Status: Observation Assessment and Plan Chest pain Troponin mildly elevated, normalized Cardiology consulted Continue previous home meds GERD Responded well to GI cocktail PPI General surgery consulted, may need Stroke like symptoms CT/CTA negative MRI without evidence of acute stroke Alcohol dependence Acute alcohol intoxication Tobacco abuse [facility] protocol Recommend cessation HTN CAD AFib Nonadherence with medication regimen Continue previous home meds Diagnosis/Problems Diagnosis/Problems (1) Chest pain Status: Acute (2) Stroke-like symptoms Status: Acute (3) Alcohol intoxication Status: Acute (4) Alcohol dependence Status: Acute (5) Gastroesophageal reflux disease without esophagitis Status: Acute CELINA MANRIQUEZ MD November 18, 2021 13:04
--- NOTE | 2021-11-18 14:16 | Consultation-Cardiology ---
HPI-Cardiology Cardiology Consultation: Date of Consultation 11/18/21 Time Seen by a Provider: 14:20 Date of Admission 11-17-21 Attending Physician Sarah Manriquez MD Admitting Physician No,Local Physician Consulting Physician Raad Barriga MD Primary Process Development Chemist: Dr. Irwin HPI: Chief Complaint: Chest pain CVA vs TIA Ms. Phan is a 66 yr old male admitted to 407 from the ED. He reports he got up out of bed yesterday and had a sudden onset of mid-sternal chest pain he rated 8/10. He reports it hurt so bad he passed out. He is unsure of how long he was unconscious for, but states when he came to he still had the chest pain along with numbness in the fingers of his left hand. He reports he receive pain medication which made his pain in the chest feel worse. He is currently not reporting chest pain at this time. He is not reporting any SOB. He does not report any LE swelling. He reports he takes his blood pressure medications, but is unable to provide the name. When asked if he is taking his Eliquis, he states he is as it is a blood pressure pill. Review of Systems-Cardiology All Other Systems Reviewed Negative Unless Noted: Yes HRL-Rnhzbb-Rnmavb Hx Patient Social History Smoking Status: Current Someday Smoker Have you traveled recently?: Yes Where was recent travel?: [place] 3 months ago Alcohol Use?: Yes Pt feels they are or have been: No Tobacco type used: Cigarettes Immunizations Up To Date Tetanus Booster (TDap): Less than 5yrs Date of Pneumonia Vaccine: Jan 06, 1971 Past Medical History PMH As described under Assessment. Family Medical History Family History: History of - respiratory disease 03 FATHER (EMPHYSEMIA) Allergies and Home Medications Allergies Coded Allergies: Penicillins (Verified Allergy, Unknown, 10/17/13) morphine (Verified Allergy, Unknown, pt has received Hydromorphone in the past, 03/18/21) Patient Home Medication List Apixaban (Eliquis) 5 Mg Tablet, 5 MG PO BID Prescribed by: CASSI HA on 11/18/21 151 Aspirin (Children's Aspirin) 81 Mg Tab.chew, 81 MG PO DAILY Prescribed by: CASSI HA on 11/18/21 151 Atorvastatin Calcium (Lipitor) 40 Mg Tablet, 40 MG PO HS Prescribed by: CASSI HA on 11/18/211509 Carvedilol (Carvedilol) 3.125 Mg Tablet, 3.125 MG PO BID Prescribed by: CASSI HA on 11/18/211509 Sacubitril/Valsartan (Entresto 24 mg-26 mg Tablet) 24 Mg-26 Mg Tablet, 1 TAB PO BID Prescribed by: CASSI HA on 11/18/211509 Discontinued Medications Apixaban (Eliquis) 5 Mg Tablet, 5 MG PO BID, (Reported) Discontinued Reason: No Longer Taking Entered as Reported by: AURORA GUAMAN on 10/12/211123 Last Action: Discontinued Carvedilol (Carvedilol) 3.125 Mg Tablet, 3.125 MG PO BID, (Reported) Discontinued Reason: No Longer Taking Entered as Reported by: AURORA GUAMAN on 10/12/211123 Last Action: Discontinued Celecoxib (Celecoxib) 200 Mg Capsule, 200 MG PO BID PRN for CHEST PAIN, (Reported) Discontinued Reason: No Longer Taking Entered as Reported by: AURORA GUAMAN on 10/12/211123 Last Action: Discontinued Sacubitril/Valsartan (Entresto 24 mg-26 mg Tablet) 1 Each Tablet, 1 TAB PO BID, (Reported) Discontinued Reason: No Longer Taking Entered as Reported by: AURORA GUAMAN on 10/12/211123 Last Action: Discontinued Physical Exam-Cardiology Physical Exam Vital Signs/I&O Capillary Refill : Less Than 3 Seconds Data Review Labs Radiology NAME: AGUSTIN PHAN [facility] REC#: [id number] PT STATUS: ADM Mónica : 1955 PHYSICIAN: JAKE MAHER ADMIT DATE: 11/17/21 Signed Date of Exam:11/17/21 CHEST 1 VIEW, AP/PA ONLY INDICATION: Chest pain. COMPARISON: 10/11/2021. FINDINGS: Two frontal radiographic views of the chest were obtained and demonstrate normal heart size and pulmonary vascularity. The lungs are well aerated and clear. No large pleural effusion or pneumothorax is seen. The visualized osseous structures show no acute abnormalities. IMPRESSION: 1. No acute cardiopulmonary process. Dictated by: Dictated on workstation # [id number] Dict: 11/17/21 1419 Trans: 11/18/21 0814 [id number] Interpreted by: CHERYL BEEBE MD Electronically signed by: CHERYL BEEBE MD 11/18/2114 NAME: AGUSTIN PHAN [facility] REC#: [id number] PT STATUS: REG ER : 1955 PHYSICIAN: JAKE MAHER ADMIT DATE: 11/17/21/ER Signed Date of Exam:11/17/21 CT ANGIO HEAD/NECK PROCEDURE: CT angiography of the head and CT angiography of the neck with and without contrast. TECHNIQUE: Contiguous noncontrast images were obtained from the skull base through the vertex. After intravenous contrast administration, helical CT angiography of the neck was performed. Source data was reformatted into 3D MIP projections. Delayed postcontrast acquisition was also obtained. Auto Exposure Controls were utilized during the CT exam to meet ALARA standards for radiation dose reduction. INDICATION: Chest pain, left-sided weakness. COMPARISONS: CT head 11/17/2021. FINDINGS: There is a type II aortic arch. Both common carotid arteries are widely patent. Carotid bifurcations show calcified plaque but no evidence of hemodynamically significant stenosis. The cervical, high cervical, petrous, cavernous, and supraclinoid segments of both ICA are widely patent. The A1 and A2 segments of both CARL, M1, M2, and M3 trifurcation vessels of both MCA show contrast opacification with no large vessel or medium vessel occlusion seen. The vertebral arteries are codominant and are patent to the skull base. The PICA, basilar artery, AICA, SCA, and decorator inspector are unremarkable. Lung apices are clear. Superior mediastinum is unremarkable. Parapharyngeal and paraspinous soft tissues are unremarkable. There is moderate cervical spondylosis, most severe at C6-C7. 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 IMPRESSION: 1. There is no large vessel or medium vessel occlusion seen in the intracranial circulation. 2. There is bilateral carotid bifurcation disease with calcific atherosclerosis but no evidence of hemodynamically significant stenosis. 3. There is moderate cervical spondylosis, most severe at C6-C7. 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 Additional nonemergent findings as described above. Dictated by: Dictated on workstation # [id number] Dict: 11/17/21 1646 Trans: 11/17/21 1702 [id number] Interpreted by: MASSIEL ALICIA MD Electronically signed by: MASSIEL ALICIA MD 11/17/211701 NAME: AGUSTIN PHAN [facility] REC#: [id number] PT STATUS: ADM Mónica : 1955 PHYSICIAN: SARAH MANRIQUEZ MD ADMIT DATE: 11/17/21 Draft Date of Exam:11/18/21 MRI BRAIN W/O CONTRAST PROCEDURE: MR imaging of the brain without contrast. TECHNIQUE: Multiplanar, multisequence MR imaging of the brain was performed without contrast. INDICATION: Stroke. COMPARISON: CTA head and neck 11/17/2021. FINDINGS: Examination is limited by motion and was also terminated early due to patient unable to complete the exam. Moderate generalized parenchymal volume loss. The T2 FLAIR and T1 sequences are nondiagnostic. Restricted water diffusion signal in the central luis and midbrain is due to artifact. No other restricted water diffusion. No hydrocephalus or extra-axial fluid collections are identified. Normal intracranial flow voids. The orbits are unremarkable. Mild mucosal thickening left maxillary sinus. Mastoids appear clear. Normal bone marrow signal. IMPRESSION: 1. Limited exam as above. 2. No evidence of an acute infarction. Dictated on workstation # [id number] Dict: 11/18/21 1225 Trans: 11/18/21 1231 [facility] [id number] Interpreted by: LEANDRO FELIZ MD Electronically signed by: ECG Impression ECG Initial ECG Rhythm: Normal Sinus A/P-Cardiology Assessment/Admission Diagnosis CVA vs TIA - management per Dr. Manriquez and stroke team Chest pain - Cardiac catheterization by Dr. Pink in June 2021 reporting mild coronary artery disease nonobstructive disease. - Repeat cardiac catheterization was done on September 18, [address] Irwin due to severe chest pain and severe deterioration in the left ventricular function. Mild coronary artery disease nonobstructive disease Syncope - multiple episodes over the past few months. Associated with severe chest pain. Unknown etiology Could be vasovagal or secondary to arrhythmia. Underlying malignant arrhythmia such as ventricular tachycardia cannot be excluded. Currently in sinus rhythm. Recommend compliance with his LifeVest - we will re-order Paroxysmal atrial fibrillation, - Had been on Coreg 3.125mg BID and Eliquis 5mg BID - Non-compliant History of Frequent premature ventricular contractions Systolic congestive heart failure - chronic compensated left ventricular systolic dysfunction, nonischemic cardiomyopathy - 2D echocardiogram done on September 17, [address] Irwin showing dilated left ventricle with diffuse left ventricular hypokinesia with segmental wall motion abnormality ejection fraction 25 to 30%, PA pressure 30 to 35 mmHg - Patient was started on beta-blockers, Entresto by Dr. Irwin, has been noncompliant at home. - LifeVest oredered by Dr. Irwin - has been non-compliant Thoracic aortic aneurysm - he had an aortic root measuring 4 cm on an echocardiogram at an outside hospital Hypertension - Restart antihypertensive regimen Elevated liver enzymes - undetermined etiology, could be secondary to alcoholic hepatitis - management per medical services Dementia - patient has significant memory loss. Tobaccoism - educated on smoking cessation Alcoholism - management of withdrawal per medical services - cessation advised Hx pancreatitis Gastroesophageal reflux disease H/O non-compliance with all aspects of care Discussion and Recomendations Complex management d/t non-compliance with all aspects of medical care No evidence of ACS We will restart OAC with Eliquis for stroke prophylaxis We will restart BB tx with Coreg We will restart Entresto for tx of chronic systolic CHF/NICM Advised immediate cessation of ETOH - management per medical services Advise immediate cessation of tobaccoism Advise compliance with medication regimen Advise compliance with Life Vest Management of CVA vs TIA per medical services Monitor lab Management of ETOH withdrawal per medical services Replace electrolytes as indicated Further recs will be based on his hospital course We would like to thank Dr. Manriquez for this consult He may be discharged home from cardiac stand point We recommend that current cardiac regimen be continued at home We recommend that he be discharged home on Life Vest We recommend f/u with Dr. Irwin next week CASSI HA November 18, 2021 14:16
[2021-11-18] MEDS ORDERED: CARV3.122 PO ×2 (15:10)
[2021-11-18] MEDS ORDERED: APIX5TAB PO ×2 (15:10)
[2021-11-18] MEDS ORDERED: SACU1TAB2 PO ×2 (15:10)
[2021-11-18] MEDS ORDERED: ATOR40TA PO ×2 (15:10)
[2021-11-18] MEDS ORDERED: ASPI81TA64 PO ×2 (15:10)
--- NOTE | 2021-11-18 17:06 | Consultation-Cardiology ---
HPI-Cardiology Cardiology Consultation: Date of Consultation 11/18/21 Time Seen by a Provider: 14:50 Date of Admission Attending Physician Celina Olson MD Admitting Physician No,Local Physician Consulting Physician MATTHEW BURNETTE MD, MA, FACP, FACC, FSCAI, CCDS HPI: Chief Complaint: Chest pain CVA vs TIA Ms. Phan is a 66 yr old male admitted to 407 from the ED. He reports he got up out of bed yesterday and had a sudden onset of mid-sternal chest pain he rated 8/10. He reports it hurt so bad he passed out. He is unsure of how long he was unconscious for, but states when he came to he still had the chest pain along with numbness in the fingers of his left hand. He reports he receive pain medication which made his pain in the chest feel worse. He is currently not reporting chest pain at this time. He is not reporting any SOB. He does not report any LE swelling. He reports he takes his blood pressure medications, but is unable to provide the name. When asked if he is taking his Eliquis, he states he is as it is a blood pressure pill. Review of Systems-Cardiology All Other Systems Reviewed Negative Unless Noted: Yes [id number] Hx Patient Social History Smoking Status: Current Someday Smoker Have you traveled recently?: Yes Where was recent travel?: [place] 3 months ago Alcohol Use?: Yes Pt feels they are or have been: No Tobacco type used: Cigarettes Immunizations Up To Date Tetanus Booster (TDap): Less than 5yrs Date of Pneumonia Vaccine: Jan 06, 1971 Past Medical History PMH As described under Assessment. Family Medical History Family History: History of - respiratory disease 03 FATHER (EMPHYSEMIA) Allergies and Home Medications Allergies Coded Allergies: Penicillins (Verified Allergy, Unknown, 10/17/13) morphine (Verified Allergy, Unknown, pt has received Hydromorphone in the past, 03/18/21) Patient Home Medication List Home Medication List Reviewed: Yes Apixaban (Eliquis) 5 Mg Tablet, 5 MG PO BID Prescribed by: CASSI HA on 11/18/21 1510 Aspirin (Children's Aspirin) 81 Mg Tab.chew, 81 MG PO DAILY Prescribed by: CASSI HA on 11/18/21 1510 Atorvastatin Calcium (Lipitor) 40 Mg Tablet, 40 MG PO HS Prescribed by: CASSI HA on 11/18/211509 Carvedilol (Carvedilol) 3.125 Mg Tablet, 3.125 MG PO BID Prescribed by: CASSI HA on 11/18/211509 Sacubitril/Valsartan (Entresto 24 mg-26 mg Tablet) 24 Mg-26 Mg Tablet, 1 TAB PO BID Prescribed by: CASSI HA on 11/18/211509 Discontinued Medications Apixaban (Eliquis) 5 Mg Tablet, 5 MG PO BID, (Reported) Discontinued Reason: No Longer Taking Entered as Reported by: AURORA GUAMAN on 10/12/211123 Last Action: Discontinued Carvedilol (Carvedilol) 3.125 Mg Tablet, 3.125 MG PO BID, (Reported) Discontinued Reason: No Longer Taking Entered as Reported by: AURORA GUAMAN on 10/12/211123 Last Action: Discontinued Celecoxib (Celecoxib) 200 Mg Capsule, 200 MG PO BID PRN for CHEST PAIN, (Reported) Discontinued Reason: No Longer Taking Entered as Reported by: AURORA GUAMAN on 10/12/211123 Last Action: Discontinued Sacubitril/Valsartan (Entresto 24 mg-26 mg Tablet) 1 Each Tablet, 1 TAB PO BID, (Reported) Discontinued Reason: No Longer Taking Entered as Reported by: AURORA GUAMAN on 10/12/211123 Last Action: Discontinued Physical Exam-Cardiology Physical Exam Vital Signs/I&O 11/18/21 11/18/21 11/18/21 11/18/21 07:00 07:53 07:59 11:33 Temp 36.8 36.5 Pulse 66 64 73 Resp 18 18 B/P (MAP) 141/91 (108) 143/92 (109) Pulse Ox 97 97 O2 Delivery Room Air Room Air Room Air 11/18/21 11/18/21 12:53 15:12 Temp 36.7 Pulse 80 64 Resp 17 B/P (MAP) 125/79 (94) Pulse Ox 98 O2 Delivery Room Air 11/18/21 00:00 Intake Total 1360 ml Balance 1360 ml Capillary Refill : Less Than 3 Seconds Data Review Labs Laboratory Tests 11/17/21 18:44: Urine Opiates Screen NEGATIVE, Urine Oxycodone Screen NEGATIVE, Urine Methadone Screen NEGATIVE, Urine Propoxyphene Screen NEGATIVE, Urine Barbiturates Screen NEGATIVE, Ur Tricyclic Antidepressants Screen NEGATIVE, Urine Phencyclidine Screen NEGATIVE, Urine Amphetamines Screen NEGATIVE, Urine Methamphetamines Screen NEGATIVE, Urine Benzodiazepines Screen POSITIVEH, Urine Cocaine Screen NEGATIVE, Urine Cannabinoids Screen NEGATIVE 11/18/21 07:45: White Blood Count 5.4, Red Blood Count 4.39, Hemoglobin 15.2, Hematocrit 45, Mean Corpuscular Volume 102H, Mean Corpuscular Hemoglobin 35H, Mean Corpuscular Hemoglobin Concent 34, Red Cell Distribution Width 13.2, Platelet Count 102L, Me an Platelet Volume 12.2, Immature Granulocyte % (Auto) 0, Neutrophils (%) (Auto) 61, Lymphocytes (%) (Auto) 28, Monocytes (%) (Auto) 9, Eosinophils (%) (Auto) 1, Basophils (%) (Auto) 0, Neutrophils # (Auto) 3.3, Lymphocytes # (Auto) 1.5, Monocytes # (Auto) 0.5, Eosinophils # (Auto) 0.1, Basophils # (Auto) 0.0, Immature Granulocyte # (Auto) 0.0, Percent Immature Platelet Fraction 11.1H, Sodium Level 141, Potassium Level 3.9, Chloride Level 103, Carbon Dioxide Level 20L, Anion Gap 18H, Blood Urea Nitrogen 7, Creatinine 0.77, Estimat Glomerular Filtration Rate 99, BUN/Creatinine Ratio 9, Glucose Level 89, Calcium Level 8.7, Phosphorus Level 3.1, Magnesium Level 1.9, Troponin I < 0.028, Triglycerides Level 88, Cholesterol Level 189, LDL Cholesterol Direct 113, VLDL Cholesterol 18, HDL Cholesterol 69H, Smear Scan YES A/P-Cardiology Assessment/Admission Diagnosis CVA vs TIA - management per Dr. Olson and stroke team Chest pain, chronic, intermittent, non cardiac (based on multiple cardiac cath in the last 6 months) - Cardiac catheterization by Dr. Pink in June 2021 reporting mild coronary artery disease nonobstructive disease. - Repeat cardiac catheterization was done on September 18, [address] Irwin due to severe chest pain and severe deterioration in the left ventricular function. Mild coronary artery disease nonobstructive disease Syncope - multiple episodes over the past few months. Associated with severe chest pain. Unknown etiology - Could be vasovagal or secondary to arrhythmia. - Underlying malignant arrhythmia such as ventricular tachycardia cannot be excluded. Currently in sinus rhythm. - Recommend compliance with his LifeVest - we will re-order Paroxysmal atrial fibrillation, - Had been on Coreg 3.125mg BID and Eliquis 5mg BID - Non-compliant History of Frequent premature ventricular contractions Systolic congestive heart failure - chronic compensated left ventricular systolic dysfunction, nonischemic cardiomyopathy - 2D echocardiogram done on September 17, [address] Irwin showing dilated left ventricle with diffuse left ventricular hypokinesia with segmental wall motion abnormality ejection fraction 25 to 30%, PA pressure 30 to 35 mmHg - Patient was started on beta-blockers, Entresto by Dr. Irwin, has been noncompliant at home. - LifeVest oredered by Dr. Irwin - has been non-compliant Thoracic aortic aneurysm - he had an aortic root measuring 4 cm on an echocardiogram at an outside hospital Hypertension - Restart antihypertensive regimen Elevated liver enzymes - undetermined etiology, could be secondary to alcoholic hepatitis - management per medical services Dementia - patient has significant memory loss. Tobaccoism - educated on smoking cessation Alcoholism - management of withdrawal per medical services - cessation advised Hx pancreatitis Gastroesophageal reflux disease H/O non-compliance with all aspects of care Discussion and Recomendations Complex management d/t non-compliance with all aspects of medical care No evidence of ACS. Mutiple card cath procedures have not shown any significant CAD We recommend that the Medical/Hospitalist Service evaluate him for noncardiac causes of chest pain We will restart OAC with Eliquis for stroke prophylaxis We will restart BB tx with Coreg We will restart Entresto for tx of chronic systolic CHF/NICM Advised immediate cessation of ETOH - management per Medical/Hospitalist services Advise immediate cessation of tobaccoism Advise compliance with medication regimen Advise compliance with Life Vest Management of CVA vs TIA per medical services Monitor lab and replace electrolytes as needed Management of ETOH withdrawal per medical services We recommend that current cardiac regimen be continued at home We recommend that he be discharged home on Life Vest We recommend f/u with Dr. Irwin next week MATTHEW BURNETTE MD FACP FAC CCDS November 18, 2021 17:06
--- NOTE | 2021-11-18 17:57 | Consultation - Surgery ---
History of Present Illness History of Present Illness Patient Consulted On(dereje/time) 11/18/21 17:52 Date Seen by Provider: November 18, 2021 Time Seen by Provider: 15:18 History of Present Illness Consult requested by Dr. Olson for epigastric abdominal pain Patient is 66-year-old male wh was admitted to the hospital. Patient states that he was found by his neighbor unconscious on the floor. He states that he thinks he had a stroke yesterday. He had numbness and still with tingling in the left upper extremity. Cannot move his left side of his body very well very limited motion he states. He while in the hospital began having little of epigastric abdominal pain, which he points to the xiphoid process. He states this moves into the sternum and up into the left neck and left arm as well slightly. Moderate discomfort. Nothing seems to make it better or worse. Also with history of GERD. Currently denies any nausea vomiting fever sweats chills shortness of breath. Allergies and Home Medications Allergies Coded Allergies: Penicillins (Verified Allergy, Unknown, 10/17/13) morphine (Verified Allergy, Unknown, pt has received Hydromorphone in the past, 03/18/21) Patient Home Medication List Home Medication List Reviewed: Yes Apixaban (Eliquis) 5 Mg Tablet, 5 MG PO BID Prescribed by: CASSI HA on 11/18/21 151 Aspirin (Children's Aspirin) 81 Mg Tab.chew, 81 MG PO DAILY Prescribed by: CASSI HA on 11/18/21 151 Atorvastatin Calcium (Lipitor) 40 Mg Tablet, 40 MG PO HS Prescribed by: CASSI HA on 11/18/21 151 Carvedilol (Carvedilol) 3.125 Mg Tablet, 3.125 MG PO BID Prescribed by: CASSI HA on 11/18/21 151 Sacubitril/Valsartan (Entresto 24 mg-26 mg Tablet) 24 Mg-26 Mg Tablet, 1 TAB PO BID Prescribed by: CASSI HA on 11/18/21 1510 Discontinued Medications Apixaban (Eliquis) 5 Mg Tablet, 5 MG PO BID, (Reported) Discontinued Reason: No Longer Taking Entered as Reported by: AURORA GUAMAN on 10/12/21 1124 Last Action: Discontinued Carvedilol (Carvedilol) 3.125 Mg Tablet, 3.125 MG PO BID, (Reported) Discontinued Reason: No Longer Taking Entered as Reported by: AURORA GUAMAN on 10/12/211123 Last Action: Discontinued Celecoxib (Celecoxib) 200 Mg Capsule, 200 MG PO BID PRN for CHEST PAIN, (Reported) Discontinued Reason: No Longer Taking Entered as Reported by: AURORA GUAMAN on 10/12/211123 Last Action: Discontinued Sacubitril/Valsartan (Entresto 24 mg-26 mg Tablet) 1 Each Tablet, 1 TAB PO BID, (Reported) Discontinued Reason: No Longer Taking Entered as Reported by: AURORA GUAMAN on 10/12/211123 Last Action: Discontinued Past Dcfiyzn-Kxtcuv-Dilscw Hx Patient Social History Smoking Status: Current Someday Smoker Alcohol Use?: Yes Have you traveled recently?: Yes Immunizations Up To Date Tetanus Booster (TDap): Less than 5yrs PED Vaccines UTD: No Date of Pneumonia Vaccine: Jan 06, 1971 Surgeries History of Surgeries: Yes Surgeries: Cardiac, Orthopedic Respiratory History of Respiratory Disorde: Yes (History of traumatic pneumothorax) Respiratory Disorders: Asthma Cardiovascular History of Cardiac Disorders: Yes Cardiac Disorders: Atrial Fibrillation, Coronary Artery Disease, Heart Attack, High Cholesterol, Hypertension, Irregular Heartbeat Neurological History of Neurological Disord: Yes (MILD RIGHT SIDE WEAKNESS) Neurological Disorders: Stroke Genitourinary History of Genitourinary Disor: No Gastrointestinal History of Gastrointestinal Di: Yes Gastrointestinal Disorders: Pancreatitis, Gall Bladder Disease Musculoskeletal History of Musculoskeletal Dis: Yes (MULTIPLE FRACTURES WITH REPAIRS) Musculoskeletal Disorders: Back Injury, Chronic Back Pain, Fractures Endocrine History of Endocrine Disorders: No HEENT History of HEENT Disorders: No Cancer History of Cancer: No Psychosocial History of Psychiatric Problem: Yes (Alcohol dependence) Blood Transfusions Adverse Reaction to a Blood Tr: No Reviewed Nursing Assessment Reviewed/Agree w Nursing PMH: Yes Family Medical History Significant Family History: No Pertinent Family Hx, GI Disease Family Medial History: History of - respiratory disease 03 FATHER (EMPHYSEMIA) Review of Systems-General Constitutional: No chills, No diaphoresis EENTM: No blurred vision, No double vision Respiratory: No dyspnea on exertion, No short of breath Cardiovascular: chest pain; No palpitations; syncope Gastrointestinal: abdominal pain (Epigastric); No nausea, No vomiting Genitourinary: No decreased output, No discharge Musculoskeletal: No back pain, No joint pain Skin: No change in color, No change in hair/nails Psychiatric/Neurological: Denies Anxiety, Denies Depressed, Denies Emotional Problems; Numbness (Left upper extremity) All Other Systems Reviewed Negative Unless Noted: Yes (Negative excepted noted.) Physical Exam-General Problems Physical Exam Vital Signs Vital Signs - First Documented 11/17/21 11/17/21 11/17/21 13:41 19:55 20:22 Temp 36.1 Pulse 97 Resp 14 B/P (MAP) 151/112 (125) Pulse Ox 96 O2 Delivery Room Air O2 Flow Rate 0.00 FiO2 21 Capillary Refill : Less Than 3 Seconds General Appearance: WD/WN, no apparent distress HEENT: PERRL/EOMI, normal ENT inspection Neck: non-tender, full range of motion, supple, normal inspection Respiratory: chest non-tender, no respiratory distress, no accessory muscle use Cardiovascular: regular rate, rhythm, no JVD Gastrointestinal: non tender, soft, other (Directly on the xiphoid does have some tenderness surrounding abdominal exam does not seem to be tender) Rectal: deferred Back: normal inspection, no vertebral tenderness Extremities: other (Ecchymosis to the left dorsal aspect of the left upper extremity. Patient with weak left sided body. Question effort by patient in order to move his extremities) Neurologic/Psychiatric: alert, normal mood/affect, oriented x 3 Skin: normal color, ecchymosis (Left upper extremity) Lymphatic: no adenopathy Data Review Labs Laboratory Tests 11/17/21 18:44: Urine Opiates Screen NEGATIVE, Urine Oxycodone Screen NEGATIVE, Urine Methadone Screen NEGATIVE, Urine Propoxyphene Screen NEGATIVE, Urine Barbiturates Screen NEGATIVE, Ur Tricyclic Antidepressants Screen NEGATIVE, Urine Phencyclidine Screen NEGATIVE, Urine Amphetamines Screen NEGATIVE, Urine Methamphetamines Screen NEGATIVE, Urine Benzodiazepines Screen POSITIVEH, Urine Cocaine Screen NEGATIVE, Urine Cannabinoids Screen NEGATIVE 11/18/21 07:45: White Blood Count 5.4, Red Blood Count 4.39, Hemoglobin 15.2, Hematocrit 45, Mean Corpuscular Volume 102H, Mean Corpuscular Hemoglobin 35H, Mean Corpuscular Hemoglobin Concent 34, Red Cell Distribution Width 13.2, Platelet Count 102L, Mean Platelet Volume 12.2, Immature Granulocyte % (Auto) 0, Neutrophils (%) (Auto) 61, Lymphocytes (%) (Auto) 28, Monocytes (%) (Auto) 9, Eosinophils (%) (Auto) 1, Basophils (%) (Auto) 0, Neutrophils # (Auto) 3.3, Lymphocytes # (Auto) 1.5, Monocytes # (Auto) 0.5, Eosinophils # (Auto) 0.1, Basophils # (Auto) 0.0, Immature Granulocyte # (Auto) 0.0, Percent Immature Platelet Fraction 11.1H, Sodium Level 141, Potassium Level 3.9, Chloride Level 103, Carbon Dioxide Level 20L, Anion Gap 18H, Blood Urea Nitrogen 7, Creatinine 0.77, Estimat Glomerular Filtration Rate 99, BUN/Creatinine Ratio 9, Glucose Level 89, Calcium Level 8.7, Phosphorus Level 3.1, Magnesium Level 1.9, Troponin I < 0.028, Triglycerides Level 88, Cholesterol Level 189, LDL Cholesterol Direct 113, VLDL Cholesterol 18, HDL Cholesterol 69H, Smear Scan YES Assessment/Plan Assessment/Plan Assessment/Plan Epigastric abdominal pain GERD TIA versus stroke Patient on Protonix. Continue on Protonix at this time. Further stroke/TIA work-up per medicine team. ERNESTO SOOD DO November 18, 2021 17:57
[2021-11-18] MEDS: PANTOPRAZOLE 40 MG (PROTONIX) VIAL IV SCH (20:47)
[2021-11-18] MEDS: MELATONIN 3 MG TABLET PO PRN (23:46)
[2021-11-19 04:04] VITALS: BP 132/83
[2021-11-19] MEDS: KCL 20 MEQ TAB (K-DUR) PO SCH (06:00)
[2021-11-19] MEDS: POTASSIUM CL 10MEQ/50ML IVPB 50 ML IV SCH (06:00)
[2021-11-19] MEDS: MULTIVIT W/MINERALS TAB (THERAGRAN M) PO SCH (06:02)
[2021-11-19] MEDS: THIAMINE 100 MG (VITAMIN B-1) TAB PO SCH (06:02)
[2021-11-19 06:56] LABS: POTASSIUM 3.9 MMOL/L (3.6-5.0)
[2021-11-19 06:57] LABS: CALCIUM 8.4 MG/DL (8.5-10.1)
[2021-11-19] MEDS: MAGNESIUM 1 GM/100 ML IVPB 100 ML IV SCH (07:00)
[2021-11-19 07:19] LABS: CREATININE SERUM 0.75 MG/DL (0.60-1.30); MAGNESIUM 1.9 MG/DL (1.6-2.4)
[2021-11-19 07:51] VITALS: BP 149/92
[2021-11-19] MEDS: MAGNESIUM OXIDE (MAG-OX)400 MG TAB PO SCH (08:26)
[2021-11-19] MEDS: ASPIRIN 81 MG CHEW (CHILDREN'S ASA) PO SCH (08:27)
[2021-11-19] MEDS: APIXABAN 5 MG (ELIQUIS) TABLET PO SCH (08:27)
[2021-11-19] MEDS: THIAMINE INJECTION 100 MG, FOLIC ACID INJECTION 1 MG, MAGNESIUM SULFATE 2 GM, VITAMIN M... IV SCH ×5 (08:27)
[2021-11-19] MEDS: FOLIC ACID 1 MG TAB PO SCH (08:27)
[2021-11-19] MEDS: SACUBITRIL/VALSARTAN 24/26 MG (ENTRESTO) TABLET PO SCH (08:27)
[2021-11-19] MEDS: PANTOPRAZOLE 40 MG (PROTONIX) VIAL IV SCH (08:28)
--- NOTE | 2021-11-19 08:32 | Physical Therapy Progress Note ---
Therapy Progress Note Patient laying in bed awake pre tx. Refuses physical therapy saying "I can't do therapy, I can't walk". Explained to patient that I was here to help so he can start walking again and he just says that he is too tired to participate. He is dismissive and says to "come back later if you want to". Patient is obviously unmotivated. Will check back later if there is time. CHONG ROJAS PT November 19, 2021 08:32
--- NOTE | 2021-11-21 11:46 | Physician Query Clarification ---
PQ-Intro New Diagnosis Admission/Discharge Admission Date: November 17, 2021 at 17:14 Discharge Date: November 19, 2021 at 10:38 The medical record reflects the following clinical scenario: History/Risk Factors: HTN, chronic systolic CHF, Alcohol dependence w/inoxication, alcoholic cardiomyopathy Clinical Findings: lt side weakness, CTA - There is no large vessel or medium vessel occlusion seen in the intracranial circulation. MRI - No evidence of an acute infarction Treatment: 4 BABY ASPIRIN AND 1 INCH NITRO PASTE, IVF, Ativan IVP Question: What condition best reflects the above clinical scenario? Please document a response in the Progress Noter or Discharge Summary. 1. TIA 2. Stroke 3. Other, with explanation of the clinical findings. 4. Clinically undetermined, no explanation for the clinical findings. PHYSICIAN RESPONSE What condition reflects above: Other, explanation/clinical finding Explanation of clincal finding Stroke like symptoms, no evidence of TIA or stroke Please remember a lack of response to the above will prompt a phone page by CDI/Coding staff. In responding to this query, please exercise your independent professional judgment. The purpose of this communication is to more accurately reflect the complexity of your patients condition. The fact that a question is asked does not imply that any particular answer is desired or expected. Thank you for your timely response to this clarification. Requestors name: Darrell THIS PHYSICIAN QUERY FORM IS A PERMANENT PART OF THE MEDICAL RECORD DARRELL CHRISTENSEN November 21, 2021 11:46 SARAH MANRIQUEZ MD November 30, 2021 16:31
--- NOTE | 2021-11-23 15:16 | Physician Query-Final Dx ---
FENG11/23/21 1516: Final Diagnosis Give Final Diagnosis Please give Final Diagnosis SARAH MANRIQUEZ MD 11/30/21 1632: Final Diagnosis Give Final Diagnosis GERD, stroke like symptoms FENGJulNovember 23, 2021 15:16 SARAH MANRIQUEZ MD November 30, 2021 16:32
== END 2021-11-19 10:38 | disposition home or self-care (01) ==
LOC: EDUNIT# 13:38 → ER 13:39 → 4TH 17:14
PROVIDERS: ADMIT Internal Medicine; ATTEND Internal Medicine
DX: R29.898 Other symptoms and signs involving the musculoskeletal system (principal); K21.9 Gastro-esophageal reflux disease without esophagitis; I11.0 Hypertensive heart disease with heart failure; I50.22 Chronic systolic (congestive) heart failure; F10.229 Alcohol dependence with intoxication, unspecified; Y90.2 Blood alcohol level of 40-59 mg/100 ml; I42.6 Alcoholic cardiomyopathy; I25.10 Atherosclerotic heart disease of native coronary artery without angina pectoris; I48.0 Paroxysmal atrial fibrillation; F17.210 Nicotine dependence, cigarettes, uncomplicated; E78.00 Pure hypercholesterolemia, unspecified; R29.707 NIHSS score 7; F03.90 Unspecified dementia, unspecified severity, without behavioral disturbance, psychotic disturbance, mood disturbance, and anxiety; Z79.01 Long term (current) use of anticoagulants; Z79.82 Long term (current) use of aspirin; Z88.5 Allergy status to narcotic agent; Z88.0 Allergy status to penicillin
CPT/HCPCS: 70450; 70496; 70498; 70551; 71045; 80048 ×2; 80053; 80061; 80306; 83690; 83735 ×3; 83874; 83880; 84100 ×2; 84484 ×2; 85025 ×2; 85610; 85730; 93005; 93041; 96361; 96374; 96375; 96376; 97162; 97166; 99284; G0378; G0480; 36415; 80320

== ENCOUNTER 2021-11-24 18:28 | Emergency (ER) | payer MEDICARE ==
[~2021-11-24 18:28] MED LIST changes: +ASPI81TA64 PO; +ATOR40TA PO
[2021-11-29] MEDS ORDERED: PANT40TA52 PO (12:08)
== END 2021-11-24 18:35 | disposition left against medical advice (07) ==
LOC: EDUNIT# 18:28 → ER 18:32
DX: R68.89 Other general symptoms and signs (principal)

== ENCOUNTER 2021-11-28 09:28 | Observation (INO) | payer MEDICARE ==
[~2021-11-28] VITALS: Ht 188 cm; Wt 102.8 kg
[2021-11-28] MEDS ORDERED: fentaNYL INJ 100 MCG/2 ML AMP IVP ONE ×2 (09:45→12:30)
--- NOTE | 2021-11-28 09:54 | ED Neurological Problem ---
General Chief Complaint: Neuro-Stroke Like Symptoms Stated Complaint: CP Source: patient, EMS Exam Limitations: no limitations History of Present Illness Date Seen by Provider: November 28, 2021 Time Seen by Provider: 09:37 Initial Comments Patient presents ER by EMS from [facility] with chief complaint that shortly after midnight he was struck in the chest on the left side with some chest pain that is significant, reproducible to deep inhalation and direct palpation as well as a headache. 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 He has a history of stroke as well as significant coronary history. He follows with Neena Ashford out of Dr. Hays's office. Dr. Barriga is his associate doctor. Last known well time is midnight. He was awake at that time drinking some coffee. He says he did take his aspirin 81 mg this morning but does not take his blood pressure medicine if he is not going to eat. He denies a history of hyperlipidemia. He does smoke and drink alcohol routinely however he does not endorse using recreational drugs. History of hypertension, coronary disease, atrial fibrillation and reduced ejection fraction heart failure , alcohol abuse, GERD, tobaccoism. Significant history of nonadherence to medications. Patient was here 2 weeks ago with the same symptoms of chest pain and left-sided weakness involving left arm left leg and left face. Although the patient does not endorse it today he was supposed to be on Eliquis for his atrial fibrillation 2 weeks ago. Echocardiogram couple months ago shows an EF of 25 to 30%. EMS remarks the patient today has significantly elevated blood pressure 170/100. CT angiogram from 10 days ago reveals no stenosis or large vessel or medium vessel occlusion. MRI from the same episode is unremarkable albeit limited by being terminated early due to patient unable to complete the exam. Cardiac catheterization [address] Pink demonstrate mild coronary nonobstructive disease and repeat cardiac catheterization in 2 months ago demonstrated severe deterioration of left ventricular function and mild coronary nonobstructive disease. Allergies and Home Medications Allergies Coded Allergies: Penicillins (Verified Allergy, Unknown, 10/17/13) morphine (Verified Allergy, Unknown, pt has received Hydromorphone in the past, 03/18/21) Patient Home Medication List Home Medication List Reviewed: Yes Apixaban (Eliquis) 5 Mg Tablet, 5 MG PO BID Prescribed by: CASSI HA on 11/18/211509 Aspirin (Children's Aspirin) 81 Mg Tab.chew, 81 MG PO DAILY Prescribed by: CASSI HA on 11/18/211509 Atorvastatin Calcium (Lipitor) 40 Mg Tablet, 40 MG PO HS Prescribed by: CASSI HA on 11/18/211509 Carvedilol (Carvedilol) 3.125 Mg Tablet, 3.125 MG PO BID Prescribed by: CASSI HA on 11/18/211509 Sacubitril/Valsartan (Entresto 24 mg-26 mg Tablet) 24 Mg-26 Mg Tablet, 1 TAB PO BID Prescribed by: CASSI HA on 11/18/211509 Review of Systems Review of Systems Constitutional: No chills, No diaphoresis Eyes: Denies Blindness, Denies Blurred Vision Ears, Nose, Mouth, Throat: denies ear pain, denies ear discharge Respiratory: No cough, No short of breath Cardiovascular: No edema, No palpitations Gastrointestinal: No abdominal pain, No nausea, No vomiting Genitourinary: No discharge, No dysuria Musculoskeletal: No back pain, No joint pain Skin: No pruritus, No rash All Other Systems Reviewed Negative Unless Noted: Yes Past Gyqvogs-Pycihj-Kjduys Hx Patient Social History Tobacco Use?: Yes Use of E-Cig and/or Vaping dev: No Substance use?: No Alcohol Use?: Yes Alcohol type: Beer, Hard Liquor Alcohol Frequency: Daily Immunizations Up To Date Tetanus Booster (TDap): Less than 5yrs PED Vaccines UTD: No First/Initial COVID19 Vaccinat: YES Second COVID19 Vaccination Loc: YES Third COVID19 Vaccination Date: YES Past Medical History Surgery/Hospitalization HX: orthopedic, heart cath, asthma, a-fib, pancreatitis, stroke, ch. back pain. Surgeries: Yes Cardiac, Orthopedic Respiratory: Yes (History of traumatic pneumothorax) Asthma Cardiac: Yes Atrial Fibrillation, Coronary Artery Disease, Heart Attack, High Cholesterol, Hypertension, Irregular Heartbeat Neurological: Yes (MILD RIGHT SIDE WEAKNESS) Stroke Genitourinary: No Gastrointestinal: Yes Pancreatitis, Gall Bladder Disease Musculoskeletal: Yes (MULTIPLE FRACTURES WITH REPAIRS) Back Injury, Chronic Back Pain, Fractures Endocrine: No HEENT: No Cancer: No Psychosocial: Yes (Alcohol dependence) Adverse Reaction/Blood Tranf: No Family Medical History History of - respiratory disease 03 FATHER (EMPHYSEMIA) No Pertinent Family Hx, GI Disease SOCIAL HISTORY: -SMOKES 1 PPD -DRUGS--DENIES USE -ETOH--HEAVY/DAILY USE--WILL NOT STATE HOW MUCH--DRINKS BEER + HARD LIQUOR PAST SURGICAL HISTORY: -CARDIAC CATHS--NO INTERVENTION CARDIAC CATH 09/18/[address] IRWIN: CONCLUSION: 1. Mild coronary artery disease nonobstructive disease 2. Nonischemic cardiomyopathy, elevated left ventricular end-diastolic pressure, known ejection fraction 25 to 30% per echocardiogram 3. Slightly prominent aortic arch, no dissection or aneurysm SUCCESSFUL CARDIOVERSION 09/28/[address] IRWIN FOR ATRIAL FIB/FLUTTER WITH RVR. -CHEST TUBE FOR TRAUMATIC PNEUMOTHORAX -MULTIPLE FRACTURE REPAIRS Physical Exam Vital Signs Vital Signs - First Documented 11/28/21 09:34 Temp 36.0 Pulse 87 Resp 12 B/P (MAP) 145/100 (115) Pulse Ox 99 Capillary Refill : Height, Weight, BMI Height: 6'1.00" Weight: 211lbs. 0.5oz. [id number]; 28.29 BMI Method:Stated General Appearance: WD/WN, no apparent distress HEENT: PERRL/EOMI, normal ENT inspection, TMs normal, pharynx normal Neck: full range of motion, supple, normal inspection Respiratory: lungs clear, normal breath sounds, no respiratory distress, no accessory muscle use Cardiovascular: normal peripheral pulses, regular rate, rhythm Peripheral Pulses: 2+ Dorsalis Pedis (R), 2+ Left Dors-Pedis (L), 2+ Radial Pulses (R), 2+ Radial Pulses (L) Gastrointestinal: normal bowel sounds, non tender, soft Extremities: normal range of motion, non-tender, normal capillary refill Neurologic/Psychiatric: alert, normal mood/affect, oriented x 3 Crainal Nerves: normal hearing, normal speech, PERRL, facial asymmetry Coordination/Gait: normal finger to nose, normal gait Skin: normal color, warm/dry Stroke Onset of Symptoms Date of Onset of Symptoms: November 28, 2021 Time of Symptom Onset: 00:01 Onset of Symptoms: Yes NIH Stroke Scale Assessment Select: Initial Level of Consciousness: 0=Alert (0), Level of Consciousness- Questions: 0=Answers both month/age (0), LOC Commands: 0=Performs both tasks (0), Gaze: Normal (0), Visual Fuller: 0=No visual loss (0), Facial Movement (Facial Paresis): 1=Minor paralysis (1), Motor Function-Arms Right: 0=No drift (0), Motor Function-Arms Left: 1=Drift (1), Motor Function-Legs Right: 0=No drift (0), Motor Function-Legs Left: 1=Drift (1), Limb Ataxia: 0=Absent (0), Sensory: 1=Mild to Moderate loss Left face is dull (1), Best Language: 0=No aphasia (0), Dysarthria: 0=Normal (0), Extinction & Inattention: 0=No abnormality (0), Total: 4 Stroke Thrombolytic Exclusion Age 18 or Over: Yes Acute intenal hemorrhage: No History of CVA: Yes Uncontrolled Coagulation Defec: No Intracranial Hemorrhage: No Severe Hypertension: No GI or Bleed: No Subarachnoid Hemorrhage: No Intracranial Neoplasm/Aneurysm: No Oral Anticoagulants: Yes Surgery or Trauma: No Puncture of Non-Compressible V: No Recent CPR: No Diabetic Hemorrhagic Retinopat: No Organ Biopsy: No Recent Obstetric Delivery: No Glucose: No Significant Hepatic Dysfunctio: No NIH Stoke Scale >22: No Bacterial Endocarditis: No Pericarditis: No Improving Symptoms: No Platelets: No TPA Contraindication: No IV - TPa Received IV - TPa Procedure Performed?: No Progress/Results/Core Measures Results/Orders Lab Results Laboratory Tests Test 11/28/21 09:48 11/28/21 09:58 11/28/21 12:36 Range/Units Glucometer 135 H 70-110 MG/DL White Blood Count 5.6 4.3-11.0 10^3/uL Red Blood Count 4.64 4.30-5.52 10^6/uL Hemoglobin 15.9 13.3-17.7 g/dL Hematocrit 48 40-54 % Mean Corpuscular Volume 103 H 80-99 fL Mean Corpuscular Hemoglobin 34 25-34 pg Mean Corpuscular Hemoglobin Concent 33 32-36 g/dL Red Cell Distribution Width 13.3 10.0-14.5 % Platelet Count 167 130-400 10^3/uL Mean Platelet Volume 11.3 9.0-12.2 fL Immature Granulocyte % (Auto) 0 % Neutrophils (%) (Auto) 70 42-75 % Lymphocytes (%) (Auto) 19 12-44 % Monocytes (%) (Auto) 10 0-12 % Eosinophils (%) (Auto) 1 0-10 % Basophils (%) (Auto) 1 0-10 % Neutrophils # (Auto) 3.9 1.8-7.8 10^3/uL Lymphocytes # (Auto) 1.0 1.0-4.0 10^3/uL Monocytes # (Auto) 0.5 0.0-1.0 10^3/uL Eosinophils # (Auto) 0.0 0.0-0.3 10^3/uL Basophils # (Auto) 0.0 0.0-0.1 10^3/uL Immature Granulocyte # (Auto) 0.0 0.0-0.1 10^3/uL Prothrombin Time 13.5 12.2-14.7 SEC INR Comment 1.0 0.8-1.4 Activated Partial Thromboplast Time 25 24-35 SEC D-Dimer 0.48 0.00-0.49 UG/ML Sodium Level 142 135-145 MMOL/L Potassium Level 3.9 3.6-5.0 MMOL/L Chloride Level 102 98-107 MMOL/L Carbon Dioxide Level 23 21-32 MMOL/L Anion Gap 17 H 5-14 MMOL/L Blood Urea Nitrogen 8 7-18 MG/DL Creatinine 0.80 0.60-1.30 MG/DL Estimat Glomerular Filtration Rate 98 BUN/Creatinine Ratio 10 Glucose Level 124 H 70-105 MG/DL Calcium Level 9.1 8.5-10.1 MG/DL Corrected Calcium 8.9 8.5-10.1 MG/DL Total Bilirubin 0.9 0.1-1.0 MG/DL Aspartate Amino Transf (AST/SGOT) 42 H 5-34 U/L Alanine Aminotransferase (ALT/SGPT) 41 0-55 U/L Alkaline Phosphatase 53 40-136 U/L Troponin I 0.053 H <0.028 NG/ML B-Type Natriuretic Peptide 155.1 H <100.0 PG/ML Total Protein 7.5 6.4-8.2 GM/DL Albumin 4.2 3.2-4.5 GM/DL Urine Color YELLOW Urine Clarity CLEAR Urine pH 8.0 5-9 Urine Specific [place] 1.010 L 1.016-1.022 Urine Protein 2+ H NEGATIVE Urine Glucose (UA) TRACE H NEGATIVE Urine Ketones NEGATIVE NEGATIVE Urine Nitrite NEGATIVE NEGATIVE Urine Bilirubin 1+ H NEGATIVE Urine Urobilinogen 1.0 < = 1.0 MG/DL Urine Leukocyte Esterase TRACE H NEGATIVE Urine RBC (Auto) NEGATIVE NEGATIVE Urine RBC RARE /HPF Urine WBC 2-5 /HPF Urine Squamous Epithelial Cells RARE /HPF Urine Crystals NONE /LPF Urine Bacteria TRACE /HPF Urine Casts NONE /LPF Urine Mucus SMALL H /LPF Urine Culture Indicated YES My Orders Orders - IMMANUEL HADDAD Ekg Tracing (11/28/21 09:35) Cbc With Automated Diff (11/28/21 09:43) Protime With Inr (11/28/21 09:43) Partial Thromboplastin Time (11/28/21 09:43) Comprehensive Metabolic Panel (11/28/21 09:43) Fibrin Degradation Products (11/28/21 09:43) Troponin I Nancy (11/28/21 09:43) Ua Culture If Indicated (11/28/21 09:43) Chest 1 View, Ap/Pa Only (11/28/21 09:43) Nothing By Mouth (11/28/21 Lunch) Accucheck Stat ONCE (11/28/21 09:43) Ed Iv/Invasive Line Start (11/28/21 09:43) Ed Iv/Invasive Line Start (11/28/21 09:43) Vital Signs Stroke Patient Q15M (11/28/21 09:43) Ct Head Wo-R/O Stroke (11/28/21 09:43) O2 (11/28/21 09:43) Intake & Output 06,14,22 (11/28/21 09:43) Monitor-Rhythm Ecg Trace Only (11/28/21 09:43) Dysphagia Screening Tool [id number] (11/28/21 09:43) Post Thrombolytic Adminstratio (11/28/21 09:43) Lipid Panel (11/29/21 06:00) Fentanyl Inj (Sublimaze Injection) (11/28/21 09:45) Bnp Nancy (11/28/21 10:33) Fentanyl Inj (Sublimaze Injection) (11/28/21 12:30) Ed Admission (Communication) (11/28/21 12:55) Medications Given in ED Current Medications Medications Dose Ordered Sig/Yoseph Route Start Time Stop Time Status Last Admin Dose Admin Fentanyl Citrate 50 mcg ONCE ONCE IVP 11/28/21 09:45 11/28/21 09:47 DC 11/28/21 09:50 50 MCG Fentanyl Citrate 50 mcg ONCE ONCE IVP 11/28/21 12:30 11/28/21 12:31 DC 11/28/21 12:34 50 MCG Vital Signs/I&O 11/28/21 09:34 Temp 36.0 Pulse 87 Resp 12 B/P (MAP) 145/100 (115) Pulse Ox 99 Progress Progress Note #1: Time: 09:54 Progress Note He is outside the window for tPA as well as he may or may not be taking Eliquis. Eliquis is prescribed to him. He has a notable poor historian. His symptoms are consistent with his previous several admissions. We will obtain a CT of his head, chest x-ray. 50 mcg of fentanyl for his chest pain. Progress Note #2: Time: 12:21 Progress Note Discussed the case with Dr. Vines, ischemic stroke neurologist on-call at [facility]. We reviewed the imaging from just 10 days ago and she would recommend since the symptoms are identical to then there is always a possibility that he could have had a small stroke and we should repeat a CT without IV contrast in 24 hours since he is going to be taken into the hospital for delta troponins anyways. If it is still negative then she would not pursue any further imaging for this episode. She would not pursue a CT angiogram or MRI at this time especially since the patient was unable to tolerate it. She would not make any changes to secondary prevention management and would continue the Eliquis at appropriate dose. Initial ECG Impression Date: November 28, 2021 Initial ECG Impression Time: 09:39 Initial ECG Rate: 83 Initial ECG Rhythm: Normal Sinus Initial ECG Intervals: Normal Initial ECG Impression: Normal Initial ECG Comparisson: Unchanged Comment Normal sinus rhythm without clinically relevant ST elevation or depression. Diagnostic Imaging Diagonstic Imaging: CT Plain Films/CT/US/NM/MRI: head Comments [facility]. [place], [place] NAME: AGUSTIN LOZA Rachel MED REC#: [id number] PT STATUS: REG ER : 1955 PHYSICIAN: IMMANUEL HADDAD MD ADMIT DATE: 11/28/21/ER Signed Date of Exam:11/28/21 CT HEAD WO-R/O STROKE PROCEDURE: CT head wo r/o stroke. TECHNIQUE: Multiple contiguous axial images were obtained through the brain without the use of intravenous contrast. Auto Exposure Controls were utilized during the CT exam to meet ALARA standards for radiation dose reduction. INDICATION: Neuro deficit, left-sided weakness. COMPARISON: MRI brain from 11/18/2021. FINDINGS: No hyperdense hemorrhage or space-occupying mass. No hydrocephalus or midline shift. Foley-white matter differentiation is well-preserved. No hyperdense vessel sign is appreciated. Mild mucosal thickening in the left ethmoid sinus. Other paranasal sinuses are clear. Mastoid air cells are clear. No acute calvarial abnormality. IMPRESSION: No acute intracranial hemorrhage or features of large territorial infarct. Dictated by: Dictated on workstation # [id number] Dict: 11/28/21 1022 Trans: 11/28/21 1028 CVB [id number] Interpreted by: SULMA JOSHI MD Electronically signed by: SULMA JOSHI MD 11/28/21 1028 Reviewed: Reviewed by Me Diagonstic Imaging: Xray Plain Films/CT/US/NM/MRI: chest Comments [facility], [place] NAME: AGUSTIN LOZA [facility] REC#: [id number] PT STATUS: REG ER : 1955 PHYSICIAN: IMMANUEL HADDAD MD ADMIT DATE: 11/28/21/ER Signed Date of Exam:11/28/21 CHEST 1 VIEW, AP/PA ONLY INDICATION: Chest pain. Comparison is made with prior exam of 11/17/2021. FINDINGS: There is cardiomegaly. There is mild venous congestion. No pleural effusion or pneumothorax. Mediastinum is unremarkable. IMPRESSION: Cardiomegaly and mild central pulmonary venous congestion. Dictated by: Dictated on workstation # [id number] Dict: 11/28/21 1004 Trans: 11/28/21 1010 CVB [id number] Interpreted by: JEANNA TEIXEIRA MD Electronically signed by: JEANNA TEIXEIRA MD 11/28/21 1010 Reviewed: Reviewed by Me Departure Communication (Admissions) Time/Spoke to Admitting Phy: 12:[address] Olson. 1250: Discussed the case and he feels it is reasonable to hobs him and repeat a CT and troponin in the morning. He agrees that this likely chest pain given history and recent caths. He agrees with consultation to cardiology. If he continues to have these persistent symptoms in the future then he would probably recommend the patient go somewhere where a neurologist available. Time/Spoke to Consulting Phy: 12:[address] Irwin, cardiology: With his recent cardiac catheterization 2 months ago and year ago but being no CAD he does not think this is anything other than the chest wall pain which we tend to agree. He recommends continuing same medications and he be happy to consult. Impression Primary Impression: CVA (cerebral vascular accident) Qualified Codes: I63.9 - Cerebral infarction, unspecified Additional Impression: Chest wall pain Disposition: ADMITTED INPATIENT Condition: Stable Admissions Decision to Admit Reason: Admit from ER (General) Decision to Admit/Date: November 28, 2021 Time/Decision to Admit Time: 12:27 Departure-Patient Inst. Referrals: NO,LOCAL PHYSICIAN (PCP/Family) Primary Care Physician IMMANUEL HADDAD November 28, 2021 09:54
--- NOTE | 2021-11-28 10:08 | Diagnostic Imaging Report ---
INDICATION: Chest pain. Comparison is made with prior exam of 11/17/2021. FINDINGS: There is cardiomegaly. There is mild venous congestion. No pleural effusion or pneumothorax. Mediastinum is unremarkable. IMPRESSION: Cardiomegaly and mild central pulmonary venous congestion. Dictated by: Dictated on workstation # [id number]
[2021-11-28 10:10] LABS: BASOPHILS % (AUTO) 1 % (0-10); EOSINOPHILS % (AUTO) 1 % (0-10); HEMATOCRIT 48 % (40-54); HEMOGLOBIN 15.9 g/dL (13.3-17.7); LYMPHOCYTES % (AUTO) 19 % (12-44); MEAN CORPUSCULAR HEMOGLOBIN 34 pg (25-34); MEAN CORPUSCULAR HGB CONC 33 g/dL (32-36); MEAN CORPUSCULAR VOLUME 103 fL (80-99); MEAN PLATELET VOLUME 11.3 fL (9.0-12.2); MONOCYTES # (AUTO) 0.5 10^3/uL (0.0-1.0); MONOCYTES % (AUTO) 10 % (0-12); NEUTROPHILS # (AUTO) 3.9 10^3/uL (1.8-7.8); NEUTROPHILS % (AUTO) 70 % (42-75); PLATELET COUNT 167 10^3/uL (130-400); WHITE BLOOD COUNT 5.6 10^3/uL (4.3-11.0)
--- NOTE | 2021-11-28 10:26 | Diagnostic Imaging Report ---
PROCEDURE: CT head wo r/o stroke. TECHNIQUE: Multiple contiguous axial images were obtained through the brain without the use of intravenous contrast. Auto Exposure Controls were utilized during the CT exam to meet ALARA standards for radiation dose reduction. INDICATION: Neuro deficit, left-sided weakness. COMPARISON: MRI brain from 11/18/2021. FINDINGS: No hyperdense hemorrhage or space-occupying mass. No hydrocephalus or midline shift. Foley-white matter differentiation is well-preserved. No hyperdense vessel sign is appreciated. Mild mucosal thickening in the left ethmoid sinus. Other paranasal sinuses are clear. Mastoid air cells are clear. No acute calvarial abnormality. IMPRESSION: No acute intracranial hemorrhage or features of large territorial infarct. Dictated by: Dictated on workstation # [id number]
[2021-11-28 10:28] LABS: ALBUMIN 4.2 GM/DL (3.2-4.5); POTASSIUM 3.9 MMOL/L (3.6-5.0)
[2021-11-28 10:29] LABS: CALCIUM 9.1 MG/DL (8.5-10.1)
[2021-11-28 10:30] LABS: TOTAL PROTEIN 7.5 GM/DL (6.4-8.2)
[2021-11-28 10:32] LABS: BILIRUBIN,TOTAL 0.9 MG/DL (0.1-1.0)
[2021-11-28 10:33] LABS: FIBRIN DEGRADATION PRODUCTS 0.48 UG/ML (0.00-0.49); PROTHROMBIN TIME PATIENT 13.5 SEC (12.2-14.7)
[2021-11-28 10:34] LABS: CREATININE SERUM 0.8 MG/DL (0.60-1.30)
[2021-11-28 12:41] LABS: CLARITY,URINE CLEAR; COLOR,URINE YELLOW; GLUCOSE, URINE (UA) TRACE (NEGATIVE); KETONES,URINE NEGATIVE (NEGATIVE); LEUKOCYTE ESTERASE ,URINE TRACE (NEGATIVE); NITRITE,URINE NEGATIVE (NEGATIVE); PROTEIN,URINE 2+ (NEGATIVE)
[2021-11-28 12:53] LABS: BACTERIA,URINE TRACE /HPF; RBC,URINE RARE /HPF; SQUAMOUS EPITHELIAL CELL,UR RARE /HPF
[2021-11-28 12:54] LABS: BILIRUBIN,URINE 1+ (NEGATIVE)
[2021-11-28] MEDS ORDERED: MELATONIN 3 MG TABLET PO PRN (13:30)
[2021-11-28] MEDS ORDERED: ONDANSETRON 4 MG/2 ML (SDV) Z0FRAN IV PRN (13:30)
[2021-11-28] MEDS ORDERED: ONDANSETRON 4 MG (ZOFRAN) ORAL DISSOLVE TAB PO PRN (13:30)
[2021-11-28] MEDS ORDERED: ACETAMINOPHEN 325 MG TABLET PO PRN (13:30)
[2021-11-28] MEDS ORDERED: diphenhydrAMINE 25 MG TAB (BENADRYL) PO PRN (13:30)
[2021-11-28] MEDS ORDERED: polyethylene glycoL POWDER 17 GM (MIRALAX) PACK PO PRN (13:30)
[2021-11-28] MEDS ORDERED: ENOXAPARIN 40 MG/0.4 ML (LOVENOX) SYR SC SCH (13:30)
[2021-11-28] MEDS ORDERED: ANTACID SUSP 30 ML UDC (MYLANTA) PO PRN (13:30)
[2021-11-28 15:54] VITALS: BP 160/96
[2021-11-28] MEDS ORDERED: fentaNYL INJ 100 MCG/2 ML AMP IVP PRN (17:15)
--- NOTE | 2021-11-28 19:13 | History & Physical-Hospitalist ---
History of Present Illness HPI/Chief Complaint Chivo Phan is a 66 year old male with PMH HTN, CAD, AFib, HFrEF, alcohol abuse, tobacco abuse, GERD, who presented with chest pain. He says it started when he got out of bed. It is located in the center of his chest and does not radiate. He reports associated shortness of breath. He denies nausea and vomiting. He denies diaphoresis. He also reports having left sided weakness in his left hand which was new according to him. He was recently hospitalized with similar symptoms. He says that he is tired and is trying not to move because his pain is doing better now. Source: patient Exam Limitations: no limitations Date Seen 11/28/21 Time Seen by a Provider: 18:10 Attending Physician No,Local Physician PCP Admitting Physician: Celina Manriquez MD Attending Physician: Celina Manriquez MD Referring Physician Date of Admission November 28, 2021 at 12:56 Home Medications & Allergies Home Medications Reviewed patient Home Medication Reconciliation performed by pharmacy medication reconciliations reproduction technician and/or nursing. Patients Allergies have been reviewed. Allergies Allergies Coded Allergies Penicillins (Verified Allergy, Unknown, 10/17/13) morphine (Verified Allergy, Unknown, pt has received Hydromorphone in the past, 03/18/21) Past Rpqyeyb-Cjbeuw-Grdzsf Hx Patient Social History Tobacco Use?: Yes Tobacco type used: Cigarettes Smoking Status: Current Everyday Smoker Use of E-Cig and/or Vaping dev: No Substance use?: No Alcohol Use?: Yes Alcohol type: Beer, Hard Liquor Alcohol Frequency: Daily Pt feels they are or have been: No Immunizations Up To Date First/Initial COVID19 Vaccinat: YES Second COVID19 Vaccination Loc: YES Tetanus Booster (TDap): Unknown Hepatitis A: Yes Hepatitis B: Yes PED Vaccines UTD: No Date of Pneumonia Vaccine: Jan 06, 1971 Current Status Advance Directives: No Communicates: Verbally Primary Language: Liberian Preferred Spoken Language: Liberian Is interpretation needed?: No Sensory deficits: Vision impairment Implanted or Applied Medical D: Orthopedic hardware Past Medical History Surgeries: Cardiac, Orthopedic Asthma Atrial Fibrillation, Coronary Artery Disease, Heart Attack, High Cholesterol, Hypertension, Irregular Heartbeat Stroke Pancreatitis, Gall Bladder Disease Back Injury, Chronic Back Pain, Fractures Adverse Reaction/Blood Tranf: No Family Medical History History of - respiratory disease 03 FATHER (EMPHYSEMIA) No Pertinent Family Hx, GI Disease SOCIAL HISTORY: -SMOKES 1 PPD -DRUGS--DENIES USE -ETOH--HEAVY/DAILY USE--WILL NOT STATE HOW MUCH--DRINKS BEER + HARD LIQUOR PAST SURGICAL HISTORY: -CARDIAC CATHS--NO INTERVENTION CARDIAC CATH 09/18/[address] LEAL: CONCLUSION: 1. Mild coronary artery disease nonobstructive disease 2. Nonischemic cardiomyopathy, elevated left ventricular end-diastolic pressure, known ejection fraction 25 to 30% per echocardiogram 3. Slightly prominent aortic arch, no dissection or aneurysm SUCCESSFUL CARDIOVERSION 09/28/[address] LEAL FOR ATRIAL FIB/FLUTTER WITH RVR. -CHEST TUBE FOR TRAUMATIC PNEUMOTHORAX -MULTIPLE FRACTURE REPAIRS Review of Systems Constitutional: weakness EENTM: no symptoms reported Respiratory: short of breath Cardiovascular: chest pain Gastrointestinal: no symptoms reported Genitourinary: no symptoms reported Musculoskeletal: no symptoms reported Skin: no symptoms reported Psychiatric/Neurological: No Symptoms Reported Physical Exam Physical Exam Vital Signs Vital Signs - First Documented 11/28/21 11/28/21 09:34 13:57 Temp 36.0 Pulse 87 Resp 12 B/P (MAP) 145/100 (115) Pulse Ox 99 O2 Delivery Room Air Capillary Refill : Height, Weight, BMI Height: 6'1.00" Weight: 211lbs. 0.5oz. 95.895356jn; 29.08 BMI Method:Stated General Appearance: No Apparent Distress, Anxious HEENT: PERRL/EOMI, Pharynx Normal Neck: Normal Inspection, Supple Respiratory: No Chest Non Tender; Lungs Clear, Normal Breath Sounds, No Respiratory Distress Cardiovascular: Regular Rate, Rhythm, No Edema, No Murmur, Normal Peripheral Pulses Gastrointestinal: Normal Bowel Sounds, Non Tender, Soft Extremity: Normal Inspection, Non Tender, No Pedal Edema Neurologic/Psychiatric: Alert, Oriented x3, Motor Weakness Skin: Normal Color, Warm/Dry Results Results/Procedures Labs Laboratory Tests 11/28/21 09:58 Patient resulted labs reviewed. Imaging: Reviewed Imaging Report Assessment/Plan Admission Diagnosis Chest pain Admission Status: Observation Assessment and Plan Chest pain Cardiology consulted Troponin minimally elevated Trend Continue home meds Stroke like symptoms CT Head negative Recent MRI without acute findings [facility] recommends repeat CT Head tomorrow morning Continue ASA and Lipitor Diagnosis/Problems Diagnosis/Problems (1) Chest pain Status: Acute (2) Stroke-like symptoms Status: Acute Clinical Quality Measures AMI/AHF: ASA po Prior to arrival: Yes Stroke: Date of last known well: November 28, 2021 Time of last known well: 00:01 CELINA MANRIQUEZ MD November 28, 2021 19:13
[2021-11-28 19:49] VITALS: BP 160/80
[2021-11-28] MEDS: SACUBITRIL/VALSARTAN 24/26 MG (ENTRESTO) TABLET PO SCH (19:54)
[2021-11-28] MEDS: APIXABAN 5 MG (ELIQUIS) TABLET PO SCH (19:54)
[2021-11-28 21:48] VITALS: BP 133/98
[2021-11-29 01:00] VITALS: BP 156/81
[2021-11-29 04:02] VITALS: BP 152/83
[2021-11-29 08:02] VITALS: BP 114/80
[2021-11-29] MEDS: SACUBITRIL/VALSARTAN 24/26 MG (ENTRESTO) TABLET PO SCH (08:13)
[2021-11-29] MEDS: APIXABAN 5 MG (ELIQUIS) TABLET PO SCH (08:13)
--- NOTE | 2021-11-29 08:55 | Diagnostic Imaging Report ---
INDICATION: Stroke symptoms. TECHNIQUE: Multiple contiguous axial images were obtained through the brain without the use of intravenous contrast. Auto Exposure Controls were utilized during the CT exam to meet ALARA standards for radiation dose reduction. Comparison made to the previous day. FINDINGS: There are mild diffuse atrophic changes. There are no extra-axial fluid collections. No intracranial hemorrhage. No intracranial mass or mass effect. No midline shift. The ventricles are normal in size and position. There are no acute parenchymal abnormalities in the brain. No overt territorial ischemia seen. Calvarial windows are unremarkable. IMPRESSION: No acute intracranial abnormality and no significant change compared to yesterday. Dictated by: Dictated on workstation # [id number]
[2021-11-29] MEDS ORDERED: ASPIRIN 81 MG CHEW (CHILDREN'S ASA) PO SCH (09:00)
[2021-11-29] MEDS ORDERED: LIDOCAINE 4% (SALONPAS) PATCH TOP SCH (09:00)
[2021-11-29 11:39] VITALS: BP 129/74
[2021-11-29 11:40] LABS: BASOPHILS % (AUTO) 1 % (0-10); EOSINOPHILS # (AUTO) 0.1 10^3/uL (0.0-0.3); EOSINOPHILS % (AUTO) 1 % (0-10); HEMATOCRIT 50 % (40-54); HEMOGLOBIN 16.6 g/dL (13.3-17.7); LYMPHOCYTES # (AUTO) 1.3 10^3/uL (1.0-4.0); LYMPHOCYTES % (AUTO) 22 % (12-44); MEAN CORPUSCULAR HEMOGLOBIN 34 pg (25-34); MEAN CORPUSCULAR HGB CONC 34 g/dL (32-36); MEAN CORPUSCULAR VOLUME 103 fL (80-99); MEAN PLATELET VOLUME 11.7 fL (9.0-12.2); MONOCYTES # (AUTO) 0.5 10^3/uL (0.0-1.0); MONOCYTES % (AUTO) 8 % (0-12); NEUTROPHILS # (AUTO) 4.2 10^3/uL (1.8-7.8); NEUTROPHILS % (AUTO) 69 % (42-75); PLATELET COUNT 149 10^3/uL (130-400); WHITE BLOOD COUNT 6.1 10^3/uL (4.3-11.0)
[2021-11-29 11:44] LABS: CALCIUM 8.8 MG/DL (8.5-10.1)
[2021-11-29 11:48] LABS: CREATININE SERUM 0.71 MG/DL (0.60-1.30)
--- NOTE | 2021-11-29 11:59 | Physical Therapy Evaluation ---
PT Evaluation-General Medical Diagnosis Admission Date November 28, 2021 at 12:56 Medical Diagnosis: CP/stroke like symptoms Onset Date: November 28, 2021 Therapy Diagnosis Therapy Diagnosis: debility/weakness Height/Weight Height (Feet): 6 Height (Inches): 1.00 Weight (Pounds): 211 Weight (Ounces): 0.5 Precautions Precautions/Isolations: Fall Prevention, Standard Precautions Referral Physician: Whitney Reason for Referral: Evaluation/Treatment Medical History Pertinent Medical History: Atrial Fib, Alcoholism, CVA, Fractures, NM, Smoking Current History ER with c/o CP and weakness Reviewed History: Yes Social History Home: Apartment Current Living Status: Alone Prior Prior Level of Function SCALE: Activities may be completed with or without assistive devices. 4-Xkbaaymvbc-hmkxgcx completes the activity by him/herself with no assistance from a helper. 5-Set-up or Clean-up Assistance-helper sets up or cleans up; patient completes activity. Edwards assists only prior to or following the activity. 4-Supervision or Touching Assistance-helper provides verbal cues and/or touching/steadying and/or contact guard assistance as patient completes activity. Assistance may be provided throughout the activity or intermittently. 3-Partial/Moderate Assistance-helper does LESS THAN HALF the effort. Edwards lifts, holds or supports trunk or limbs, but provides less than half the effort. 2-Substantial/Maximal Assistance-helper does MORE THAN HALF the effort. Edwards lifts or holds trunk or limbs and provides more than half the effort. 1-Ooegbzxke-dxafac does ALL the effort. Patient does none of the effort to complete the activity. Or, the assistance of 2 or more helpers is required for the patient to complete the activity. If activity was not attempted, code reason: 7-Patient Refused. 9-Not Applicable-not attempted and the patient did not perform the activity before the current illness, exacerbation or injury. 10-Not Attempted due to Environmental Limitations-(lack of equipment, weather restraints, etc.). 88-Not Attempted due to Medical Conditions or Safety Concerns. Bed Mobility: 6 Transfers (B,C,W/C): 6 Gait: 6 Indoor Mobility (Ambulation): Independent Prior Device Use: cane PT Evaluation-Current Subjective Patient agrees to PT. Began session with attempt to use his cane, however, unsafe requiring FWW. Objective Patient Orientation: Normal For Age ROM/Strength ROM Lower Extremities bilateral LE WFL Strength Lower Extremities 4/5 grossly bilateral LE Integumentary/Posture Bowel Incontinence: No Bladder Incontinence: No Posture WFL Neuromuscular (Tone, Coordination, Reflexes) slight tremors with initial mobility with improvement with time and distance Sensory Vision: Functional Hearing: Functional Transfers Roll Left to Right (QC): 6 Sit to Lying (QC): 6 Lying to Sitting/Side of Bed(Q: 6 Sit to Stand (QC): 4 Chair/Vja-wp-Wovyh Xfer(QC): 4 CGA for safety Gait Mode of Locomotion: Walk Anticipated Mode of Locomotion: Walk Walk 10 feet (QC): 4 Walk 50 ft with 2 Turns(QC): 4 Walk 150 ft (QC): 4 Distance: 200' Gait Assistive Device: FWW Comments/Gait Description steady, functional gait sequence with FWW use Balance Sitting Static: Normal Sitting Dynamic: Normal Standing Static: Fair Standing Dynamic: Fair Assessment/Needs Patient presents with impaired mobility and weakness. Patient has his cane and attempted to utilize it initially, however, this PT deemed him unsafe. Much improved mobility and safety concerns with FWW use with ambulation. Physician notified of patient's need for FWW for home use. Rehab Potential: Fair Post Rehab Potential-Barriers: compliance PT Nutrition Services Aide Goals Nutrition Services Aide Goals PT Long-Term Goals Time Frame: Dec 10, 2021 Roll Left & Right (QC): 6 Sit to Lying (QC): 6 Lying-Sitting on Side/Bed(QC): 6 Sit to Stand (QC): 6 Chair/Jjl-zc-Vatzn Xfer(QC): 6 Toilet Transfer (QC): 6 Walk 10 feet (QC): 6 Walk 50ft with 2 Turns (QC): 6 Walk 150 ft (QC): 6 PT Plan Problem List Problem List: Activity Tolerance, Functional Strength, Safety, Balance, Gait, Transfer, Bed Mobility Treatment/Plan Treatment Plan: Continue Plan of Care Treatment Plan: Bed Mobility, Education, Functional Activity Giovanni, Functional Strength, Gait, Safety, Therapeutic Exercise, Transfers Treatment Duration: Dec 10, 2021 Frequency: 6 times per week Estimated Hrs Per Day: .25 hour per day Patient and/or Family Agrees t: Yes Time/GCodes Time In: 1037 Time Out: 1050 Total Billed Treatment Time: 13 Total Billed Treatment 1 visit EVMod 13 min SHIRA FIELDS PT November 29, 2021 11:59
[2021-11-29] MEDS ORDERED: PANT40TA52 PO ×2 (12:08)
--- NOTE | 2021-11-29 13:25 | Consultation-Cardiology ---
HPI-Cardiology Cardiology Consultation Date of Consultation 11/29/21 Date of Admission Time Seen by Provider: 13:20 Indication: Cp HPI 66-year-old gentleman with extensive history, came into the emergency room with chest pain, had some slurred speech which has improved. On my evaluation he was feeling better. Laying down comfortably in bed. He has been noncompliant with medication. Was noted to have mild elevation in troponin. Home Medications & Allergies Allergies: Coded Allergies: Penicillins (Verified Allergy, Unknown, 10/17/13) morphine (Verified Allergy, Unknown, pt has received Hydromorphone in the past, 03/18/21) Home Medication List Reviewed: Yes DEO-Glwlri-Dtmwuw Hx Patient Social History Marital Status: single Employed/Student: unemployed Smoking Status: Current Everyday Smoker Have you traveled recently?: No Alcohol Use?: Yes Immunizations Up To Date Tetanus Booster (TDap): Less than 5yrs Date of Pneumonia Vaccine: Jan 06, 1971 Past Medical History Discussed below Family Medical History Significant Family History: No Pertinent Family Hx, GI Disease Family Medical Hx Non contributory Family History: History of - respiratory disease 03 FATHER (EMPHYSEMIA) Review of Systems-General Review of Systems Constitutional: malaise, weakness EENTM: no symptoms reported Respiratory: see HPI; No cough; dyspnea on exertion; No hemoptysis, No orthopnea, No phlegm; short of breath; No stridor, No wheezing, No other Cardiovascular: see HPI, chest pain; No edema, No Hx of Intervention, No palpitations, No syncope, No vascular heart diseas, No other Gastrointestinal: no symptoms reported, see HPI Genitourinary: no symptoms reported, see HPI Musculoskeletal: no symptoms reported Skin: no symptoms reported, see HPI Psychiatric/Neurological: No Symptoms Reported, See HPI All Other Systems Reviewed Negative Unless Noted: Yes Reviewed Test Results Reviewed Test Results Lab Laboratory Tests Test 11/28/21 17:19 11/29/21 11:20 Range/Units Troponin I 0.042 H 0.035 H <0.028 NG/ML White Blood Count 6.1 4.3-11.0 10^3/uL Red Blood Count 4.83 4.30-5.52 10^6/uL Hemoglobin 16.6 13.3-17.7 g/dL Hematocrit 50 40-54 % Mean Corpuscular Volume 103 H 80-99 fL Mean Corpuscular Hemoglobin 34 25-34 pg Mean Corpuscular Hemoglobin Concent 34 32-36 g/dL Red Cell Distribution Width 13.2 10.0-14.5 % Platelet Count 149 130-400 10^3/uL Mean Platelet Volume 11.7 9.0-12.2 fL Immature Granulocyte % (Auto) 0 % Neutrophils (%) (Auto) 69 42-75 % Lymphocytes (%) (Auto) 22 12-44 % Monocytes (%) (Auto) 8 0-12 % Eosinophils (%) (Auto) 1 0-10 % Basophils (%) (Auto) 1 0-10 % Neutrophils # (Auto) 4.2 1.8-7.8 10^3/uL Lymphocytes # (Auto) 1.3 1.0-4.0 10^3/uL Monocytes # (Auto) 0.5 0.0-1.0 10^3/uL Eosinophils # (Auto) 0.1 0.0-0.3 10^3/uL Basophils # (Auto) 0.0 0.0-0.1 10^3/uL Immature Granulocyte # (Auto) 0.0 0.0-0.1 10^3/uL Sodium Level 135 135-145 MMOL/L Potassium Level 4.0 3.6-5.0 MMOL/L Chloride Level 102 98-107 MMOL/L Carbon Dioxide Level 21 21-32 MMOL/L Anion Gap 12 5-14 MMOL/L Blood Urea Nitrogen 9 7-18 MG/DL Creatinine 0.71 0.60-1.30 MG/DL Estimat Glomerular Filtration Rate 102 BUN/Creatinine Ratio 13 Glucose Level 115 H 70-105 MG/DL Calcium Level 8.8 8.5-10.1 MG/DL Triglycerides Level 141 <150 MG/DL Cholesterol Level 173 < 200 MG/DL LDL Cholesterol Direct 96 1-129 MG/DL VLDL Cholesterol 28 5-40 MG/DL HDL Cholesterol 63 H 40-60 MG/DL Physical Exam Physical Exam Vital Signs Vital Signs - First Documented 11/28/21 11/28/21 09:34 13:57 Temp 36.0 Pulse 87 Resp 12 B/P (MAP) 145/100 (115) Pulse Ox 99 O2 Delivery Room Air Capillary Refill : Height, Weight, BMI Height: 6'1.00" Weight: 211lbs. 0.5oz. [id number]; 29.08 BMI Method:Stated General Appearance: No Apparent Distress, Anxious HEENT: PERRL/EOMI, Pharynx Normal Neck: Normal Inspection, Supple Respiratory: No Chest Non Tender; Lungs Clear, Normal Breath Sounds, No Respiratory Distress Cardiovascular: Regular Rate, Rhythm, No Edema, No Murmur, Normal Peripheral Pulses Gastrointestinal: Normal Bowel Sounds, Non Tender, Soft Extremity: Normal Inspection, Non Tender, No Pedal Edema Neurologic/Psychiatric: Alert, Oriented x3, Motor Weakness Skin: Normal Color, Warm/Dry A/P-Cardiology Admission Diagnosis Chest pain Congestive heart failure, chronic compensated left ventricular systolic dysfunction, nonischemic cardiomyopathy Hypotension Hyperlipidemia Syncope Assessment/Plan Recurrent severe chest pain, recurrent episode of chest pain, underwent cardiac catheterization by Dr. Pink in June 2021 reporting mild coronary artery disease nonobstructive disease. Repeat cardiac catheterization was done on September 18, 2021 due to severe chest pain and severe deterioration in the left ventricular function. Mild coronary artery disease nonobstructive disease Chest pain is most probably noncardiac. I reassured the patient that he does not need any further cardiac work-up Mild elevation in troponin, probably secondary to severe cardiomyopathy, nonischemic in nature, no intervention was recommended. History of Syncope, multiple episodes over the past few months. Associated with severe chest pain. Unknown etiology Could be vasovagal or secondary to arrhythmia. Underlying malignant arrhythmia such as ventricular tachycardia cannot be excluded. Currently back in sinus rhythm. Recommend compliance with his LifeVest. Patient is still not using it Paroxysmal atrial fibrillation, Had been maintained on Coreg 3.125mg BID and Eliquis 5mg BID, noncompliance, urged compliance with the patient. History of Frequent premature ventricular contractions Congestive heart failure, chronic compensated left ventricular systolic dysfunction, nonischemic cardiomyopathy 2D echocardiogram done on September 17, 2021 showing dilated left ventricle with diffuse left ventricular hypokinesia with segmental wall motion abnormality ejection fraction 25 to 30%, PA pressure 30 to 35 mmHg Patient was started on beta-blockers, Entresto on last visit, has been noncompliant at home. Received his LifeVest during the last admission Educated on compliance with medication [id number] score of 2, restarting Eliquis Thoracic aortic aneurysm, he had an aortic root measuring 4 cm on an echocardiogram at an outside hospital. Continue to monitor closely, planning to evaluate CTA chest Hypertension, monitor blood pressure after the medication changes Elevated liver enzymes, could be secondary to alcoholic hepatitis. Dementia, patient has significant memory loss. Tobaccoism, educated on smoking cessation Alcoholism. Started on thiamine, alcohol withdrawal precautions Hx pancreatitis Gastroesophageal reflux disease. Clinical Quality Measures AMI/AHF: ASA po Prior to arrival: Yes Stroke: Date of last known well: November 28, 2021 Time of last known well: 00:01 AVRIL LEAL MD November 29, 2021 13:25
[2021-11-29 15:28] VITALS: BP 136/85
[2021-11-29 16:45] VITALS: BP 136/85
[2021-11-29] MEDS ORDERED: LIDOCAINE PATCH REMOVAL TP SCH (21:00)
--- NOTE | 2021-12-01 09:55 | Physician Query-Final Dx ---
FENG12/01/21 0955: Final Diagnosis Give Final Diagnosis Please give Final Diagnosis SARAH MANRIQUEZ MD 12/01/21 1300: Final Diagnosis Give Final Diagnosis GERD, non cardiac chest pain, stroke like symptoms, left hand weakness FENGJulDecember 01, 2021 09:55 SARAH MANRIQUEZ MD December 01, 2021 13:00
--- NOTE | 2021-12-01 12:59 | Discharge Summary ---
Discharge Summary Hospital Course Problems/Dx: (1) Chest pain Status: Acute (2) Gastroesophageal reflux disease without esophagitis Status: Acute (3) Stroke-like symptoms Status: Acute Hospital Course Date of Admission: November 28, 2021 at 12:56 Admission Diagnosis : Chest pain, stroke like symptoms Family Physician/Provider: [facility]iaLocal Physician Date of Discharge: 11/30/21 Discharge Diagnosis: GERD, non cardiac chest pain, left hand weakness Hospital Course: Chivo Phan is a 66 year old male who was admitted with chest pain and stroke like symptoms. He was recently admitted with the same symptoms. Cardiology was consulted and assisted with his care. He has undergone extensive workup without cardiac cause identified for his chest pain. He responds well to GERD treatment while in the hospital. He did not start the recommended PPI after his last hospitalization. He also had recurrent stroke like symptoms. He previously underwent a CT Head and MRI Brain which were unrevealing for an acute process. This hospital stay he underwent another CT Head in the ER which was unrevealing. Stroke neurology at [facility] was consulted and receommended repeat CT Head the following morning without need for repeat MRI. His follow up CT Head was again negative for acute process. His symptoms all seemed to improve prior to discharge. He was discharged home in stable condition. He was unable to be set up with home health care because he has not established with a primary care physician. He was provided an appointment to establish at the [facility]. Labs and Pending Lab Test: Microbiology 11/28/21 Urine Culture - Final, Complete NO GROWTH Home Meds Active Pantoprazole Sodium 40 Mg Tablet.dr 40 Mg PO BID 30 Days Children's Aspirin (Aspirin) 81 Mg Tab.chew 81 Mg PO DAILY Entresto 24 mg-26 mg Tablet (Sacubitril/Valsartan) 24 Mg-26 Mg Tablet 1 Tab PO BID Carvedilol 3.125 Mg Tablet 3.125 Mg PO BID Lipitor (Atorvastatin Calcium) 40 Mg Tablet 40 Mg PO HS Eliquis (Apixaban) 5 Mg Tablet 5 Mg PO BID Assessment/Pt Instructions Take medications as prescribed. Establish with a primary care physician. Return with worsening chest pain, weakness, or if you feel like you are getting worse. Discharge Planning: >30 minutes discharge planning Discharge Instructions Discharge Diet: Low Sodium Diet Activity as Tolerated: Yes Consultations Cardiology Discharge Physical Examination Vital Signs Vital Signs Date Time Temp Pulse Resp B/P (MAP) Pulse Ox O2 Delivery O2 Flow Rate FiO2 11/29/21 16:45 35.8 63 20 136/85 94 Room Air General Appearance: No Apparent Distress, Chronically ill Respiratory: Lungs Clear, No Respiratory Distress Cardiovascular: Regular Rate, Rhythm, No Murmur Gastrointestinal: Normal Bowel Sounds, Soft Extremity: Normal Inspection, No Pedal Edema Skin: Normal Color, Warm/Dry Neurologic/Psychiatric: Alert, No Motor/Sensory Deficits, Other (agitated, irritable) Allergies: Coded Allergies: Penicillins (Verified Allergy, Unknown, 10/17/13) morphine (Verified Allergy, Unknown, pt has received Hydromorphone in the past, 03/18/21) Copy Copies To 1: [facility] [place] Discharge Summary Date of Admission November 28, 2021 at 12:56 Date of Discharge November 29, 2021 at 16:43 Discharge Date: November 29, 2021 Discharge Time: 16:43 Admission Diagnosis Chest pain Discharge Diagnosis Chest pain GERD Stroke like symptoms (1) Chest pain Status: Acute (2) Gastroesophageal reflux disease without esophagitis Status: Acute (3) Stroke-like symptoms Status: Acute Clinical Quality Measures AMI/AHF: ASA po Prior to arrival: Yes Stroke: Date of last known well: November 28, 2021 Time of last known well: 00:01 SARAH MANRIQUEZ MD November 30, 2021 17:08
== END 2021-11-29 12:07 | disposition home or self-care (01) ==
LOC: EDUNIT# 09:28 → ER 09:33 → UNDOADMOB 12:56 → 4TH 12:56 → UNDODISOB 11-29 16:43
PROVIDERS: ADMIT Internal Medicine; ATTEND Internal Medicine
DX: R07.89 Other chest pain (principal); I25.10 Atherosclerotic heart disease of native coronary artery without angina pectoris; I63.9 Cerebral infarction, unspecified; I48.91 Unspecified atrial fibrillation; I48.0 Paroxysmal atrial fibrillation; I49.3 Ventricular premature depolarization; I42.8 Other cardiomyopathies; I50.22 Chronic systolic (congestive) heart failure; I71.2 Thoracic aortic aneurysm, without rupture; I11.0 Hypertensive heart disease with heart failure; R77.8 Other specified abnormalities of plasma proteins; R79.89 Other specified abnormal findings of blood chemistry; K21.9 Gastro-esophageal reflux disease without esophagitis; K70.10 Alcoholic hepatitis without ascites; F10.20 Alcohol dependence, uncomplicated; F17.210 Nicotine dependence, cigarettes, uncomplicated; F03.90 Unspecified dementia, unspecified severity, without behavioral disturbance, psychotic disturbance, mood disturbance, and anxiety; Z91.19 Patient's noncompliance with other medical treatment and regimen; Z79.01 Long term (current) use of anticoagulants
CPT/HCPCS: 36415; 70450; 71045; 80048; 80053; 80061; 81000; 82947; 83880; 84484; 85025; 85379; 85610; 85730; 87088; 93005; 93041; 96372; G0378

== ENCOUNTER 2021-12-06 05:07 | Observation (INO) | payer MEDICARE ==
[~2021-12-06] VITALS: Ht 187 cm; Wt 100.0 kg
[2021-12-06] MEDS ORDERED: fentaNYL INJ 100 MCG/2 ML AMP IVP ONE (05:15)
--- NOTE | 2021-12-06 05:19 | ED Chest Pain ---
General Chief Complaint: Chest Pain Stated Complaint: CP Source: patient Exam Limitations: no limitations History of Present Illness Date Seen by Provider: December 06, 2021 Time Seen by Provider: 05:07 Initial Comments Patient to the ER by EMS from his home with chief complaint he is having chest pain today unknown when it started. On the left side of his chest. His neurologic symptoms are at baseline. EMS remarks he had to 750 mL bottles of whiskey empty with him. He has been doing some drinking today. Not having any nausea fevers chills shortness of breath. He was in A. fib with rapid ventricular response and no ST elevation or depression. He was given 324 mg of aspirin and initiated a 500 cc bag of fluid. Nitroglycerin paste was placed on his right chest. Smokes has a history of hypertension hyperlipidemia and nonadherence to medical therapy as well as a personal history of coronary disease. Cardiac catheterization June 2021, [address] Pink demonstrating mild coronary disease, nonobstructive. Repeat cardiac catheterization September 2021 most 3 months ago showing mild coronary artery disease with nonobstructive disease. He has nonischemic severe cardiomyopathy. Patient has been recommended multiple times to wear his LifeVest. He has a history of paroxysmal atrial fibrillation typically on Coreg and Eliquis however he has not filled his Eliquis in some time. Last echocardiogram showed an EF of 25 to 30%. Allergies and Home Medications Allergies Coded Allergies: Penicillins (Verified Allergy, Unknown, 10/17/13) morphine (Verified Allergy, Unknown, pt has received Hydromorphone in the past, 03/18/21) Patient Home Medication List Home Medication List Reviewed: Yes Apixaban (Eliquis) 5 Mg Tablet, 5 MG PO BID Prescribed by: CASSI HA on 11/18/211509 Last Action: Continued Aspirin (Children's Aspirin) 81 Mg Tab.chew, 81 MG PO DAILY Prescribed by: CASSI HA on 11/18/211509 Last Action: Continued Atorvastatin Calcium (Lipitor) 40 Mg Tablet, 40 MG PO HS Prescribed by: CASSI HA on 11/18/211509 Last Action: Continued Carvedilol (Carvedilol) 3.125 Mg Tablet, 3.125 MG PO BID Prescribed by: CASSI HA on 11/18/211509 Last Action: Continued Pantoprazole Sodium (Pantoprazole Sodium) 40 Mg Tablet.dr 40 MG PO BID Prescribed by: SARAH MANRIQUEZ on 11/29/21 1208 Last Action: Continued Sacubitril/Valsartan (Entresto 24 mg-26 mg Tablet) 24 Mg-26 Mg Tablet, 1 TAB PO BID Prescribed by: CASSI HA on 11/18/21 1510 Last Action: Continued Review of Systems Review of Systems Constitutional: No chills, No diaphoresis EENTM: No Blurred Vision, No Double Vision Respiratory: Denies Cough, Denies Shortness of Air Cardiovascular: Chest Pain, Edema, Irregular Heart Rate Gastrointestinal: Denies Abdomen Distended, Denies Abdominal Pain Genitourinary: Denies Burning, Denies Discharge Musculoskeletal: No back pain, No joint pain All Other Systems Reviewed Negative Unless Noted: Yes Past Akzjpgg-Dkchar-Yjutbb Hx Patient Social History Tobacco Use?: Yes Use of E-Cig and/or Vaping dev: No Alcohol Use?: Yes Alcohol type: Hard Liquor Alcohol Frequency: Daily Immunizations Up To Date Tetanus Booster (TDap): Less than 5yrs PED Vaccines UTD: No First/Initial COVID19 Vaccinat: YES Second COVID19 Vaccination Loc: YES Third COVID19 Vaccination Date: YES Past Medical History Surgery/Hospitalization HX: orthopedic, heart cath, asthma, a-fib, pancreatitis, stroke, ch. back pain. Surgeries: Yes Cardiac, Orthopedic Respiratory: Yes (History of traumatic pneumothorax) Asthma Cardiac: Yes Atrial Fibrillation, Coronary Artery Disease, Heart Attack, High Cholesterol, Hypertension, Irregular Heartbeat Neurological: Yes (MILD RIGHT SIDE WEAKNESS) Stroke Genitourinary: No Gastrointestinal: Yes Pancreatitis, Gall Bladder Disease Musculoskeletal: Yes (MULTIPLE FRACTURES WITH REPAIRS) Back Injury, Chronic Back Pain, Fractures Endocrine: No HEENT: No Cancer: No Psychosocial: Yes (Alcohol dependence) Adverse Reaction/Blood Tranf: No Family Medical History History of - respiratory disease 03 FATHER (EMPHYSEMIA) No Pertinent Family Hx, GI Disease SOCIAL HISTORY: -SMOKES 1 PPD -DRUGS--DENIES USE -ETOH--HEAVY/DAILY USE--WILL NOT STATE HOW MUCH--DRINKS BEER + HARD LIQUOR PAST SURGICAL HISTORY: -CARDIAC CATHS--NO INTERVENTION CARDIAC CATH 09/18/[address] LEAL: CONCLUSION: 1. Mild coronary artery disease nonobstructive disease 2. Nonischemic cardiomyopathy, elevated left ventricular end-diastolic pressure, known ejection fraction 25 to 30% per echocardiogram 3. Slightly prominent aortic arch, no dissection or aneurysm SUCCESSFUL CARDIOVERSION 09/28/[address] LEAL FOR ATRIAL FIB/FLUTTER WITH RVR. -CHEST TUBE FOR TRAUMATIC PNEUMOTHORAX -MULTIPLE FRACTURE REPAIRS Physical Exam Vital Signs Vital Signs - First Documented 12/06/21 05:17 Pulse Ox 99 O2 Delivery Room Air Capillary Refill : Height, Weight, BMI Height: 6'1.00" Weight: 211lbs. 0.5oz. 95.945303uc; 29.08 BMI Method:Stated General Appearance: WD/WN, Anxious, Mild Distress HEENT: PERRL/EOMI, Pharynx Normal, Moist Mucous Membranes Neck: Full Range of Motion, Normal Inspection Respiratory: Lungs Clear, Normal Breath Sounds, No Accessory Muscle Use, No Respiratory Distress Cardiovascular: Normal Peripheral Pulses, Irregularly Irregular, Tachycardia (140 +-10) Gastrointestinal: Normal Bowel Sounds, Non Tender, Soft Extremity: Normal Capillary Refill, Pedal Edema (1+) Neurologic/Psychiatric: Alert, Oriented x3, Other (Left-sided baseline motor deficit and sensory deficit; upper extremity more than left lower extremity) Skin: Warm/Dry, Ecchymosis Progress/Results/Core Measures Results/Orders Lab Results Laboratory Tests Test 12/06/21 05:16 Range/Units White Blood Count 5.4 4.3-11.0 10^3/uL Red Blood Count 4.94 4.30-5.52 10^6/uL Hemoglobin 17.0 13.3-17.7 g/dL Hematocrit 50 40-54 % Mean Corpuscular Volume 101 H 80-99 fL Mean Corpuscular Hemoglobin 34 25-34 pg Mean Corpuscular Hemoglobin Concent 34 32-36 g/dL Red Cell Distribution Width 13.1 10.0-14.5 % Platelet Count 167 130-400 10^3/uL Mean Platelet Volume 11.7 9.0-12.2 fL Immature Granulocyte % (Auto) 0 % Neutrophils (%) (Auto) 41 L 42-75 % Lymphocytes (%) (Auto) 48 H 12-44 % Monocytes (%) (Auto) 7 0-12 % Eosinophils (%) (Auto) 2 0-10 % Basophils (%) (Auto) 1 0-10 % Neutrophils # (Auto) 2.2 1.8-7.8 10^3/uL Lymphocytes # (Auto) 2.6 1.0-4.0 10^3/uL Monocytes # (Auto) 0.4 0.0-1.0 10^3/uL Eosinophils # (Auto) 0.1 0.0-0.3 10^3/uL Basophils # (Auto) 0.1 0.0-0.1 10^3/uL Immature Granulocyte # (Auto) 0.0 0.0-0.1 10^3/uL Prothrombin Time 13.1 12.2-14.7 SEC INR Comment 1.0 0.8-1.4 Activated Partial Thromboplast Time 28 24-35 SEC Sodium Level 145 135-145 MMOL/L Potassium Level 3.6 3.6-5.0 MMOL/L Chloride Level 105 98-107 MMOL/L Carbon Dioxide Level 18 L 21-32 MMOL/L Anion Gap 22 H 5-14 MMOL/L Blood Urea Nitrogen 7 7-18 MG/DL Creatinine 0.74 0.60-1.30 MG/DL Estimat Glomerular Filtration Rate 101 BUN/Creatinine Ratio 9 Glucose Level 77 70-105 MG/DL Calcium Level 8.7 8.5-10.1 MG/DL Corrected Calcium 8.5 8.5-10.1 MG/DL Magnesium Level 1.8 1.6-2.4 MG/DL Total Bilirubin 0.6 0.1-1.0 MG/DL Aspartate Amino Transf (AST/SGOT) 58 H 5-34 U/L Alanine Aminotransferase (ALT/SGPT) 42 0-55 U/L Alkaline Phosphatase 51 40-136 U/L Myoglobin 54.9 10.0-92.0 NG/ML Troponin I 0.058 H <0.028 NG/ML B-Type Natriuretic Peptide 171.2 H <100.0 PG/ML Total Protein 7.4 6.4-8.2 GM/DL Albumin 4.2 3.2-4.5 GM/DL Serum Alcohol 252 H <10 MG/DL My Orders Orders - IMMANUEL HADDAD Cbc With Automated Diff (12/06/21 05:15) Magnesium (12/06/21 05:15) Chest 1 View, Ap/Pa Only (12/06/21 05:15) Ekg Tracing (12/06/21 05:15) Comprehensive Metabolic Panel (12/06/21 05:15) Myoglobin Serum (12/06/21 05:15) Protime With Inr (12/06/21 05:15) Partial Thromboplastin Time (12/06/21 05:15) O2 (12/06/21 05:15) Monitor-Rhythm Ecg Trace Only (12/06/21 05:15) Ed Iv/Invasive Line Start (12/06/21 05:15) Bnp Davis (12/06/21 05:15) Troponin I Nancy (12/06/21 05:15) Fentanyl Inj (Sublimaze Injection) (12/06/21 05:15) Ondansetron Injection (Zofran Injectio (12/06/21 05:30) Diltiazem Drip Pre-Mix (Cardizem Drip Pr (12/06/21 05:30) Diltiazem Injection (Cardizem Injection) (12/06/21 05:30) Ed Iv/Invasive Line Start (12/06/21 05:16) Lactated Ringers (Lr 1000 Ml Iv Solution (12/06/21 05:30) Folic Acid Tablet (Folic Acid Tablet) (12/06/21 05:30) Thiamine Tablet (Vitamin B-1 Tablet) (12/06/21 05:30) Ed Iv/Invasive Line Start (12/06/21 05:23) Ns Iv 500 Ml (Sodium Chloride 0.9%) (12/06/21 05:30) Apixaban Tablet (Eliquis Tablet) (12/06/21 05:30) Alcohol (12/06/21 05:16) Medications Given in ED Vital Signs/I&O 12/06/21 05:17 Pulse Ox 99 O2 Delivery Room Air Progress Progress Note : Time: 05:26 Progress Note Patient's had recent coronary angiograms which were all nonobstructive. He has atrial fibrillation and a rapid ventricular response so we will give him 10 mg of Cardizem to try and slow this down. Cardizem drip initiated at 5 mg/h. Nitroglycerin has been nothing to help his chest pain so we will take this off. He has already received aspirin by EMS. We will give him a dose of Eliquis. 2 mg morphine for his pain. Initial ECG Impression Date: December 06, 2021 Initial ECG Impression Time: 05:21 Initial ECG Rate: 152 Initial ECG Rhythm: A Fib/Flutter Initial ECG Intervals: QT (391) Initial ECG Impression: Atrial Fibrillation w/RVR Initial ECG Comparisson: Changed Comment No clinically relevant ST elevation or depression. Atrial fibrillation with rapid ventricular response. Diagnostic Imaging Diagonstic Imaging: Xray Plain Films/CT/US/NM/MRI: chest Comments [facility] [place], [place] NAME: AGUSTIN LOZA [facility] REC#: [id number] PT STATUS: ADM Mónica : 1955 PHYSICIAN: IMMANUEL HADDAD MD ADMIT DATE: 12/06/21/ICU Signed Date of Exam:12/06/21 CHEST 1 VIEW, AP/PA ONLY Clinical indication: Patient with chest pain. EXAM: Portable chest x-ray upright view. COMPARISON: Chest x-ray dated 11/28/2021. FINDINGS: Lungs/pleura: There is interval mild bibasilar atelectasis. There is no definite lung infiltrate. There is no pneumothorax. There is no pleural effusion. Mediastinum: Unremarkable. Pulmonary vasculature: Pulmonary vasculature has decreased in the interim and is now within normal limits. Heart: Stable mild cardiomegaly. Bones/extrathoracic soft tissue: Unremarkable. IMPRESSION: 1: Stable mild cardiomegaly. Pulmonary vasculature has decreased and is now within normal limits. 2: There is interval mild bibasilar atelectasis. There is no definite lung infiltrate. Dictated by: Dictated on workstation # [id number] Dict: 12/06/21616 Trans: 12/06/21 1201 CHASITY [id number] Interpreted by: ENA HU MD Electronically signed by: ENA HU MD 12/06/21 1201 Reviewed: Reviewed by Me Departure Communication (Admissions) Time/Spoke to Admitting Phy: 06:05 Discussed the case with Dr. Hays he agrees to observe the patient on the ICU for A. fib with RVR. Time/Spoke to Consulting Phy: 06:[address] Pink agrees to consult for cardiology. Impression Primary Impression: Atrial fibrillation with rapid ventricular response Disposition: ADMITTED INPATIENT Condition: Stable Admissions Decision to Admit Reason: Admit from ER (General) Decision to Admit/Date: December 06, 2021 Time/Decision to Admit Time: 06:00 Departure-Patient Inst. Referrals: NO,LOCAL PHYSICIAN (PCP/Family) Primary Care Physician IMMANUEL HADDAD December 06, 2021 05:19
[2021-12-06 05:25] LABS: BASOPHILS # (AUTO) 0.1 10^3/uL (0.0-0.1); BASOPHILS % (AUTO) 1 % (0-10); EOSINOPHILS # (AUTO) 0.1 10^3/uL (0.0-0.3); EOSINOPHILS % (AUTO) 2 % (0-10); HEMATOCRIT 50 % (40-54); LYMPHOCYTES # (AUTO) 2.6 10^3/uL (1.0-4.0); LYMPHOCYTES % (AUTO) 48 % (12-44); MEAN CORPUSCULAR HEMOGLOBIN 34 pg (25-34); MEAN CORPUSCULAR HGB CONC 34 g/dL (32-36); MEAN CORPUSCULAR VOLUME 101 fL (80-99); MEAN PLATELET VOLUME 11.7 fL (9.0-12.2); MONOCYTES # (AUTO) 0.4 10^3/uL (0.0-1.0); MONOCYTES % (AUTO) 7 % (0-12); NEUTROPHILS # (AUTO) 2.2 10^3/uL (1.8-7.8); NEUTROPHILS % (AUTO) 41 % (42-75); PLATELET COUNT 167 10^3/uL (130-400); WHITE BLOOD COUNT 5.4 10^3/uL (4.3-11.0)
[2021-12-06] MEDS ORDERED: FOLIC ACID 1 MG TAB PO ONE (05:30)
[2021-12-06] MEDS ORDERED: APIXABAN 5 MG (ELIQUIS) TABLET PO ONE (05:30)
[2021-12-06] MEDS ORDERED: dilTIAZem DRIP PRE-MIX 125 ML IV SCH (05:30)
[2021-12-06] MEDS ORDERED: THIAMINE 100 MG (VITAMIN B-1) TAB PO ONE (05:30)
[2021-12-06] MEDS ORDERED: ONDANSETRON 4 MG/2 ML (SDV) Z0FRAN IVP ONE (05:30)
[2021-12-06] MEDS ORDERED: LACTATED RINGERS 1,000 ML IV ONE (05:30)
[2021-12-06] MEDS ORDERED: NS IV 500 ML 500 ML IV ONE (05:30)
[2021-12-06 05:41] LABS: ALBUMIN 4.2 GM/DL (3.2-4.5); POTASSIUM 3.6 MMOL/L (3.6-5.0); PROTHROMBIN TIME PATIENT 13.1 SEC (12.2-14.7)
[2021-12-06 05:42] LABS: CALCIUM 8.7 MG/DL (8.5-10.1)
[2021-12-06 05:43] LABS: TOTAL PROTEIN 7.4 GM/DL (6.4-8.2)
[2021-12-06 05:45] LABS: BILIRUBIN,TOTAL 0.6 MG/DL (0.1-1.0)
[2021-12-06 05:47] LABS: CREATININE SERUM 0.74 MG/DL (0.60-1.30)
[2021-12-06 05:49] LABS: MAGNESIUM 1.8 MG/DL (1.6-2.4)
--- NOTE | 2021-12-06 06:20 | Diagnostic Imaging Report ---
Clinical indication: Patient with chest pain. EXAM: Portable chest x-ray upright view. COMPARISON: Chest x-ray dated 11/28/2021. FINDINGS: Lungs/pleura: There is interval mild bibasilar atelectasis. There is no definite lung infiltrate. There is no pneumothorax. There is no pleural effusion. Mediastinum: Unremarkable. Pulmonary vasculature: Pulmonary vasculature has decreased in the interim and is now within normal limits. Heart: Stable mild cardiomegaly. Bones/extrathoracic soft tissue: Unremarkable. IMPRESSION: 1: Stable mild cardiomegaly. Pulmonary vasculature has decreased and is now within normal limits. 2: There is interval mild bibasilar atelectasis. There is no definite lung infiltrate. Dictated by: Dictated on workstation # [id number]
[2021-12-06] MEDS ORDERED: MAGNESIUM OXIDE (MAG-OX)400 MG TAB PO SCH (08:03)
[2021-12-06] MEDS ORDERED: MULTIVIT W/MINERALS TAB (THERAGRAN M) PO SCH (08:05)
[2021-12-06] MEDS ORDERED: ONDANSETRON 4 MG/2 ML (SDV) Z0FRAN IVP PRN (08:15)
[2021-12-06] MEDS ORDERED: 1/2 NS IV SOLUTION 1,000 ML IV PRN (08:15)
[2021-12-06] MEDS ORDERED: LORazepam 1 MG (ATIVAN) TAB PO PRN (08:15)
[2021-12-06] MEDS ORDERED: ANTACID SUSP 30 ML UDC (MYLANTA) PO PRN (08:15)
[2021-12-06] MEDS ORDERED: D5 1/2 NS 1000 ML IV SOLUTION 1,000 ML IV PRN (08:15)
[2021-12-06] MEDS ORDERED: fentaNYL INJ 100 MCG/2 ML AMP IVP PRN (08:15)
[2021-12-06] MEDS ORDERED: LORazepam INJ 2 MG/ML (ATIVAN) VIAL IV PRN (08:15)
[2021-12-06] MEDS ORDERED: NITROGLYCERIN 0.4 MG SL TABS BTL 25'S SL PRN (08:15)
[2021-12-06] MEDS ORDERED: LORazepam INJ 2 MG/ML (ATIVAN) VIAL IM/IV PRN (08:15)
[2021-12-06] MEDS ORDERED: SENNA W/DOCUSATE (SENOKOT S) TABLET PO PRN (08:15)
[2021-12-06 08:31] VITALS: BP 121/79
[2021-12-06] MEDS ORDERED: RT-ALBUTEROL SULF 2.5 MG/3 ML PRE-MIX VIAL INH PRN (08:45)
[2021-12-06] MEDS ORDERED: THIAMINE 100 MG (VITAMIN B-1) TAB PO SCH (09:00)
[2021-12-06] MEDS ORDERED: APIXABAN 5 MG (ELIQUIS) TABLET PO SCH ×2 (09:00→21:00)
[2021-12-06] MEDS ORDERED: ASPIRIN E.C. 81 MG (ECOTRIN) TAB PO SCH (09:00)
[2021-12-06] MEDS ORDERED: PANTOPRAZOLE 40 MG (PROTONIX) TAB PO SCH ×2 (09:00→21:00)
--- NOTE | 2021-12-06 09:19 | Consultation-Cardiology ---
HPI-Cardiology Cardiology Consultation: Date of Consultation 12/06/21 Date of Admission 12/06/21 Attending Physician SmaiaLocal Physician Admitting Physician Admitting Physician: Seamus Hays MD Attending Physician: Seamus Hays MD Consulting Physician MANUEL VIGIL JR, MD HPI: Time Seen by a Provider: 09:11 Chief Complaint: RISK CONSULTATION: Atrial fibrillation and chest pain. I saw Chivo in the intensive care unit at [facility] in [place], [place] this morning. He is well-known to myself and both my partners. He has a history of paroxysmal atrial fibrillation and chronic, noncardiac chest pain. He presented to the hospital due to recurrent chest pain. However, he admits that his memory is poor and he does not remember all the details. He thinks he also had palpitations with the sensation of rapid heartbeats as well as dyspnea. He knows he missed some of his medication but he cannot remember how many days or doses he missed. When he presented to the emergency room, he was in atrial fibrillation with a rapid ventricular rate. He was started on intravenous diltiazem and admitted to the intensive care unit. After just a few hours, he has converted to sinus rhythm. He knows he lives in an apartment in [place] but he cannot recall where. He states that he had a recent fall but he cannot remember when or whether or not he was injured. He does not report paroxysmal nocturnal dyspnea, orthopnea, lightheadedness, syncope, or ankle edema. However, he keeps saying that he cannot remember things. He states that he has 2 tall glasses of whiskey each night. Certain portions of this document may have been dictated utilizing voice recognition technology. Inherent to this technology, typographical and grammatical errors may exist. As much as I am diligent to identify and correct these mistakes, some errors may remain in the document. Review of Systems-Cardiology Review of Systems Other comments Review of 10 organ systems is as per the history of present illness, otherwise negative. However, due to his poor recall, his answers may not be reliable. All Other Systems Reviewed Negative Unless Noted: Yes NHQ-[id number]-Rmoqdq Hx Patient Social History Smoking Status: Current Everyday Smoker Have you traveled recently?: No Alcohol Use?: Yes Pt feels they are or have been: No Tobacco type used: Cigarettes Immunizations Up To Date Tetanus Booster (TDap): Less than 5yrs Date of Pneumonia Vaccine: Jan 06, 1971 Past Medical History PMH As described under Assessment. Family Medical History Family History: History of - respiratory disease 03 FATHER (EMPHYSEMIA) Allergies and Home Medications Allergies Coded Allergies: Penicillins (Verified Allergy, Unknown, 10/17/13) morphine (Verified Allergy, Unknown, pt has received Hydromorphone in the past, 03/18/21) Patient Home Medication List Home Medication List Reviewed: Yes Apixaban (Eliquis) 5 Mg Tablet, 5 MG PO BID Prescribed by: CASSI HA on 11/18/211509 Aspirin (Children's Aspirin) 81 Mg Tab.chew, 81 MG PO DAILY Prescribed by: CASSI HA on 11/18/211509 Atorvastatin Calcium (Lipitor) 40 Mg Tablet, 40 MG PO HS Prescribed by: CASSI HA on 11/18/211509 Carvedilol (Carvedilol) 3.125 Mg Tablet, 3.125 MG PO BID Prescribed by: ACSSI HA on 11/18/21 151 Pantoprazole Sodium (Pantoprazole Sodium) 40 Mg Tablet.dr, 40 MG PO BID Prescribed by: SARAH MANRIQUEZ on 11/29/21 1208 Sacubitril/Valsartan (Entresto 24 mg-26 mg Tablet) 24 Mg-26 Mg Tablet, 1 TAB PO BID Prescribed by: CASSI HA on 11/18/211509 Exam Vital Signs Vital Signs Date Time Temp Pulse Resp B/P (MAP) Pulse Ox O2 Delivery O2 Flow Rate FiO2 12/06/21 09:00 71 9 132/84 90 Room Air 12/06/21 08:31 37.0 12/06/21 07:35 2.00 Physical Exam General: Alert. No acute distress. Well nourished and appears stated age. He keeps repeating that he cannot remember things. Eye: Extraocular movements are intact. Conjunctivae are clear. There are no xanthelasma. HENT: Normocephalic. Atraumatic. Carotid pulsations 2/2 without bruits. Neck: Jugular venous pressure does not appear elevated. No thyromegaly appreciated. Respiratory: Lungs are clear to auscultation. Respirations are non-labored. Breath sounds are equal. Symmetrical chest wall expansion. Cardiovascular: When I laid my stethoscope on his chest, this reproduced his chest pain. Normal rate. Regular rhythm. No murmur. No gallop. Point of maximal impulse is not appear displaced. Good pulses equal in all extremities. No edema. Gastrointestinal: Soft. Normal bowel sounds. Skin: Skin turgor is normal. There is no pallor. Musculoskeletal: No kyphosis or scoliosis appreciated. Neurologic: Alert and oriented to person only. Cranial nerves 3-12 appear grossly intact. The patient has good motor tone strength in the upper and lower extremities bilaterally. Psychiatric: Cooperative. Appropriate mood & affect. Labs Laboratory Tests Test 12/06/21 05:16 Range/Units White Blood Count 5.4 4.3-11.0 10^3/uL Red Blood Count 4.94 4.30-5.52 10^6/uL Hemoglobin 17.0 13.3-17.7 g/dL Hematocrit 50 40-54 % Mean Corpuscular Volume 101 H 80-99 fL Mean Corpuscular Hemoglobin 34 25-34 pg Mean Corpuscular Hemoglobin Concent 34 32-36 g/dL Red Cell Distribution Width 13.1 10.0-14.5 % Platelet Count 167 130-400 10^3/uL Mean Platelet Volume 11.7 9.0-12.2 fL Immature Granulocyte % (Auto) 0 % Neutrophils (%) (Auto) 41 L 42-75 % Lymphocytes (%) (Auto) 48 H 12-44 % Monocytes (%) (Auto) 7 0-12 % Eosinophils (%) (Auto) 2 0-10 % Basophils (%) (Auto) 1 0-10 % Neutrophils # (Auto) 2.2 1.8-7.8 10^3/uL Lymphocytes # (Auto) 2.6 1.0-4.0 10^3/uL Monocytes # (Auto) 0.4 0.0-1.0 10^3/uL Eosinophils # (Auto) 0.1 0.0-0.3 10^3/uL Basophils # (Auto) 0.1 0.0-0.1 10^3/uL Immature Granulocyte # (Auto) 0.0 0.0-0.1 10^3/uL Prothrombin Time 13.1 12.2-14.7 SEC INR Comment 1.0 0.8-1.4 Activated Partial Thromboplast Time 28 24-35 SEC Sodium Level 145 135-145 MMOL/L Potassium Level 3.6 3.6-5.0 MMOL/L Chloride Level 105 98-107 MMOL/L Carbon Dioxide Level 18 L 21-32 MMOL/L Anion Gap 22 H 5-14 MMOL/L Blood Urea Nitrogen 7 7-18 MG/DL Creatinine 0.74 0.60-1.30 MG/DL Estimat Glomerular Filtration Rate 101 BUN/Creatinine Ratio 9 Glucose Level 77 70-105 MG/DL Calcium Level 8.7 8.5-10.1 MG/DL Corrected Calcium 8.5 8.5-10.1 MG/DL Magnesium Level 1.8 1.6-2.4 MG/DL Total Bilirubin 0.6 0.1-1.0 MG/DL Aspartate Amino Transf (AST/SGOT) 58 H 5-34 U/L Alanine Aminotransferase (ALT/SGPT) 42 0-55 U/L Alkaline Phosphatase 51 40-136 U/L Myoglobin 54.9 10.0-92.0 NG/ML Troponin I 0.058 H <0.028 NG/ML B-Type Natriuretic Peptide 171.2 H <100.0 PG/ML Total Protein 7.4 6.4-8.2 GM/DL Albumin 4.2 3.2-4.5 GM/DL Serum Alcohol 252 H <10 MG/DL ECG Impression ECG Comment Electrocardiogram from the emergency room at 05:21 shows atrial fibrillation w ith a rapid ventricular rate at 152 bpm and diffuse, nonspecific ST-T wave changes. Electrocardiogram from the intensive care unit at 08:37 shows sinus rhythm with nonspecific T wave changes. Diagnosis/Problems Diagnosis/Problems (1) Paroxysmal atrial fibrillation Assessment & Plan: He has developed recurrent atrial fibrillation. This is most likely due to medication noncompliance. He is now back in sinus rhythm. I will resume his carvedilol for rate control and apixaban for stroke prophylaxis. He is not a good candidate for antiarrhythmic drug due to ongoing alcohol dependence and noncompliance with medications. (2) Chest pain Status: Acute Assessment & Plan: This is most likely noncardiac. He underwent cardiac catheterization in May 2021 that did not show any significant coronary artery disease and then he underwent another cardiac catheterization in September 2021 that showed mild, nonobstructive disease. His chest pain was reproducible with light palpation. No additional cardiac testing is indicated for the chest pain at this point in time. From a cardiac standpoint, he can be discharged to home. I have put an order for the staff to get him a follow-up appointment to see me in 1 month. However, historically he has missed all of his outpatient follow-up visits. (3) Cardiomyopathy Assessment & Plan: He had an echocardiogram on 09/17/2021 that showed severe left ventricular systolic dysfunction with an estimated ejection fraction of 25- 30%. I will resume his carvedilol and Entresto. (4) Chronic HFrEF (heart failure with reduced ejection fraction) Assessment & Plan: His chest x-ray did not show any evidence of pulmonary congestion. I will resume his guideline directed medical therapy. I will hold off on adding an aldosterone antagonist due to his medication noncompliance. (5) Elevated troponin Status: Acute Assessment & Plan: This may represent a type II non-ST elevation myocardial infarction due to supply/demand mismatch from the rapid ventricular rate due to the atrial fibrillation. This has resolved. As above, he has undergone 2 cardiac catheterizations within the past year and neither of these showed any significant coronary artery disease. I have resumed his aspirin, beta-jennifer and statin medication. (6) Thoracic aortic aneurysm without rupture Assessment & Plan: He has had previous echocardiograms showing dilatation of the thoracic aorta. He should continue on beta-jennifer. There is no indication for cardiothoracic surgical consultation at this time. (7) Gastroesophageal reflux disease without esophagitis Status: Acute Assessment & Plan: With his ongoing alcohol abuse, the esophageal reflux disease could also be causing chest pain. He should continue on his proton pump inhibitor. (8) Cigarette smoker Assessment & Plan: He needs to quit smoking. He was counseled in this regard. (9) Alcohol dependence Status: Acute Assessment & Plan: He needs to be abstinent from alcohol. He was counseled in this regard. (10) Medical non-compliance Status: Acute Assessment & Plan: This makes medical management difficult. MANUEL VIGIL JR, MD December 06, 2021 09:19
--- NOTE | 2021-12-06 09:26 | Short Stay Summary-Hospitalist ---
History of Present Illness HPI/Chief Complaint Patient is 66-year-old male well-known to me from multiple admissions with a past medical history of alcoholic cardiomyopathy, atrial fibrillation, medication noncompliance who presents to the emergency department due to chest pain. He states he cannot remember when it started or any precipitating factors. He was found to have an empty bottle of whiskey next to him and his alcohol level was 252 on arrival. He is unsure how much he drank in total yesterday. He states he is still having chest pain. This is reproducible and his chest is tender to palpation. He was found to be in atrial fibrillation w ith rapid ventricular rate and was started on a Cardizem drip and admitted to the ICU. He converted overnight to sinus rhythm and his rate is now the 70s. He denies any shortness of breath. We had a rather ana maria conversation regarding his alcohol use and the deleterious effects on his health from this. He is unsure if he wants to quit drinking. He is unsure if he is compliant with any of his medications. I told him explicitly that his alcohol use is killing him and his heart will not heal if he continues to drink in such a fashion. I did offer him palliative care and hospice for which she was unfamiliar with the services. He would like to think about them. Date Seen 12/06/21 Time Seen by a Provider: 08:30 Attending Physician No,Local Physician PCP Admitting Physician: Seamus Hays MD Attending Physician: Seamus Hays MD Referring Physician Date of Admission December 06, 2021 at 05:35 Home Medications & Allergies Home Medications Reviewed patient Home Medication Reconciliation performed by pharmacy medication reconciliations desktop technician and/or nursing. Patients Allergies have been reviewed. Allergies Allergies Coded Allergies Penicillins (Verified Allergy, Unknown, 10/17/13) morphine (Verified Allergy, Unknown, pt has received Hydromorphone in the [facility], 03/18/21) Past Ltcswaz-Zlphaa-Sqfvwk Hx Patient Social History Tobacco Use?: Yes Tobacco type used: Cigarettes Smoking Status: Current Everyday Smoker Smokeless Tobacco Frequency: Former User Use of E-Cig and/or Vaping dev: No Substance use?: No Alcohol Use?: Yes Alcohol type: Beer, Hard Liquor Alcohol Frequency: Daily Pt feels they are or have been: No Immunizations Up To Date First/Initial COVID19 Vaccinat: YES Second COVID19 Vaccination Loc: YES Tetanus Booster (TDap): Unknown Hepatitis A: Yes Hepatitis B: Yes PED Vaccines UTD: No Date of Pneumonia Vaccine: Jan 06, 1970 Current Status Advance Directives: No Communicates: Verbally Primary Language: Citizen Of [place] Preferred Spoken Language: Citizen Of [place] Is interpretation needed?: No Implanted or Applied Medical D: None Past Medical History Surgeries: Cardiac, Orthopedic Asthma Atrial Fibrillation, Coronary Artery Disease, Heart Attack, High Cholesterol, Hypertension, Irregular Heartbeat Stroke Pancreatitis, Gall Bladder Disease Back Injury, Chronic Back Pain, Fractures Adverse Reaction/Blood Tranf: No Family Medical History History of - respiratory disease 03 FATHER (EMPHYSEMIA) No Pertinent Family Hx, GI Disease SOCIAL HISTORY: -SMOKES 1 PPD -DRUGS--DENIES USE -ETOH--HEAVY/DAILY USE--WILL NOT STATE HOW MUCH--DRINKS BEER + HARD LIQUOR PAST SURGICAL HISTORY: -CARDIAC CATHS--NO INTERVENTION CARDIAC CATH 09/18/[address] LEAL: CONCLUSION: 1. Mild coronary artery disease nonobstructive disease 2. Nonischemic cardiomyopathy, elevated left ventricular end-diastolic pressure, known ejection fraction 25 to 30% per echocardiogram 3. Slightly prominent aortic arch, no dissection or aneurysm SUCCESSFUL CARDIOVERSION 09/28/[address] LEAL FOR ATRIAL FIB/FLUTTER WITH RVR. -CHEST TUBE FOR TRAUMATIC PNEUMOTHORAX -MULTIPLE FRACTURE REPAIRS Physical Exam Physical Exam Vital Signs Vital Signs - First Documented 12/06/21 12/06/21 12/06/21 05:17 05:36 08:10 Temp 37.0 Pulse 133 Resp 16 B/P (MAP) 119/84 Pulse Ox 99 O2 Delivery Room Air O2 Flow Rate 2.00 Capillary Refill : Less Than 3 Seconds Height, Weight, BMI Height: 6'1.00" Weight: 211lbs. 0.5oz. 95.979801ai; 28.59 BMI Method:Stated General Appearance: No Apparent Distress, WD/WN, Chronically ill HEENT: PERRL/EOMI, Moist Mucous Membranes; No Scleral Icterus (L), No Scleral Icterus (R) Neck: Full Range of Motion, Normal Inspection, Supple Respiratory: Lungs Clear, No Accessory Muscle Use, No Respiratory Distress Cardiovascular: Normal Peripheral Pulses, Irregularly Irregular Gastrointestinal: Normal Bowel Sounds, Non Tender, Soft Extremity: Normal Capillary Refill, No Calf Tenderness, No Pedal Edema Neurologic/Psychiatric: Alert, Oriented x3, Other (Left-sided baseline motor deficit and sensory deficit; upper extremity more than left lower extremity) Skin: Warm/Dry, Ecchymosis Results Results/Procedures Labs Laboratory Tests 12/06/21 05:16 Patient resulted labs reviewed. Imaging: Reviewed Imaging Report Imaging [facility]. [place], [place] NAME: AGUSTIN LOZA [facility] REC#: [id number] PT STATUS: REG ER : 1955 PHYSICIAN: IMMANUEL HADDAD MD ADMIT DATE: 12/06/21/ER Draft Date of Exam:12/06/21 CHEST 1 VIEW, AP/PA ONLY Clinical indication: Patient with chest pain. EXAM: Portable chest x-ray upright view. COMPARISON: Chest x-ray dated 11/28/2021. FINDINGS: Lungs/pleura: There is interval mild bibasilar atelectasis. There is no definite lung infiltrate. There is no pneumothorax. There is no pleural effusion. Mediastinum: Unremarkable. Pulmonary vasculature: Pulmonary vasculature has decreased in the interim and is now within normal limits. Heart: Stable mild cardiomegaly. Bones/extrathoracic soft tissue: Unremarkable. IMPRESSION: 1: Stable mild cardiomegaly. Pulmonary vasculature has decreased and is now within normal limits. 2: There is interval mild bibasilar atelectasis. There is no definite lung infiltrate. Dictated on workstation # [id number] Dict: 12/06/21 0617 Trans: 12/06/21 0620 [facility] [id number] Interpreted by: ENA HU MD Electronically signed by: Short Stay Diagnosis Discharge Diagnosis-Short Stay Admission Diagnosis A-fib with RVR Final Discharge Diagnosis A-fib with RVR Conclusion Plan A-fib with RVR Alcoholic cardiomyopathy Converted to sinus rhythm and controlled Contineu oral meds Cardiology consulted- no further workup warranted Troponin elevated- likely due to tachycardia Alcohol abuse Noncompliance We discussed explicitly how his alcohol use is impacting his health He does not desire to quit at this time Offered hospice, he is unsure about that course at this time Encouraged compliance with medications until he decides on plan of care Diagnosis/Problems Diagnosis/Problems (1) Elevated troponin Status: Acute (2) ALD (alcoholic liver disease) Status: Chronic (3) Hepatic steatosis Status: Chronic (4) Cardiomyopathy (5) Alcohol dependence Status: Acute (6) Atrial fibrillation with rapid ventricular response Status: Acute (7) Primary hypertension Clinical Quality Measures AMI/AHF: ASA po Prior to arrival: ANUSHA Guzman MD December 06, 2021 09:26
--- NOTE | 2021-12-06 10:01 | Tele-ICU Consult ---
History of Present Illness History of Present Illness Date Seen by Provider: December 06, 2021 Time Seen by Provider: 10:01 Date of Admission (Tele-ICU Physician , consultation) Available chart/ vitals / labs / Images reviewed H&P is from ER notes Patient's information available about PMH, Shx, Fhx allergy reviewed in EMR. ROS as per chart and RN report Now in ICU, hemodynamically stable Video assessment done using teleICU camera, rest of exam as per RN Discussed with RN. Consultants: riley Hospital course: (12/06) 66M Admitted with Afib RVR. c/o chest pain - nitro with no relief (of note, patient has had 2 recent coronary angiograms with mild non obstructive CAD) A/P Recurrent chest pain/ CAD - extensive w/up prior - as per cards - chest pain free now recurrent episode of chest pain, underwent cardiac catheterization by Dr. Pink in June 2021 reporting mild coronary artery disease nonobstructive disease. Repeat cardiac catheterization was done on September 18, 2021 due to severe chest pain and severe deterioration in the left ventricular function. Mild coronary a rtery disease nonobstructive disease Chest pain is most probably noncardiac. I reassured the patient that he does not need any further cardiac work-up A fib RVR -currently back in sinus rhythm, cardizem gtt as per cards - ? other arrhythmias - was recom LifeVest - not using it -Eliquis 5mg BID History of Frequent premature ventricular contractions CHF , compensared now - EF25 to 30%, PA pressure 30 to 35 mmHg Thoracic aortic aneurysm, he had an aortic root measuring 4 cm Hypertension Dementia, patient has significant memory loss. Alcoholism - intoxicatred in ER ETOH level 250 Hx pancreatitis Plans in collaboration with bedside consultants and IM MDs. Discussed with RN to reach out if any questions or concerns A total of 20 minutes of critical care time was devoted to this patient today, required to treat and/or prevent further deterioration of critical care condition ( as above ) . Allergies and Home Medications Allergies Coded Allergies: Penicillins (Verified Allergy, Unknown, 10/17/13) morphine (Verified Allergy, Unknown, pt has received Hydromorphone in the past, 03/18/21) Home Medications Apixaban 5 Mg Tablet, 5 MG PO BID Prescribed by: CASSI HA on 11/18/21 1510 Aspirin 81 Mg Tab.chew, 81 MG PO DAILY Prescribed by: CASSI HA on 11/18/21 151 Atorvastatin Calcium 40 Mg Tablet, 40 MG PO HS Prescribed by: CASSI HA on 11/18/21 151 Carvedilol 3.125 Mg Tablet, 3.125 MG PO BID Prescribed by: CASSI HA on 11/18/21 151 Pantoprazole Sodium 40 Mg Tablet.dr, 40 MG PO BID Prescribed by: SARAH MANRIQUEZ on 11/29/21 1208 Sacubitril/Valsartan 24 Mg-26 Mg Tablet, 1 TAB PO BID Prescribed by: CASSI HA on 11/18/21 151 Past Medical/Social/Family Hx Patient Social History Tobacco Use?: Yes Tobacco type used: Cigarettes Smoking Status: Current Everyday Smoker Smokeless Tobacco Frequency: Former User Use of E-Cig and/or Vaping dev: No Substance use?: No Alcohol Use?: Yes Alcohol type: Beer, Hard Liquor Alcohol Frequency: Daily Pt stated abuse/neglect: No Immunizations Up To Date First/Initial COVID19 Vaccinat: YES Second COVID19 Vaccination Loc: YES Tetanus Booster (TDap): Unknown Hepatitis A: Yes Hepatitis B: Yes Date of Pneumonia Vaccine: Jan [birth year], 1971 Current Status Advance Directives: No Communicates: Verbally Primary Language: [place]ian Preferred Spoken Language: [place]ian Is interpretation needed?: No Implanted or Applied Medical D: None Family Medical History Family Hx: SOCIAL HISTORY: -SMOKES 1 PPD -DRUGS--DENIES USE -ETOH--HEAVY/DAILY USE--WILL NOT STATE HOW MUCH--DRINKS BEER + HARD LIQUOR PAST SURGICAL HISTORY: -CARDIAC CATHS--NO INTERVENTION CARDIAC CATH 09/18/[address] LEAL: CONCLUSION: 1. Mild coronary artery disease nonobstructive disease 2. Nonischemic cardiomyopathy, elevated left ventricular end-diastolic pressure, known ejection fraction 25 to 30% per echocardiogram 3. Slightly prominent aortic arch, no dissection or aneurysm SUCCESSFUL CARDIOVERSION 09/28/[address] LEAL FOR ATRIAL FIB/FLUTTER WITH RVR. -CHEST TUBE FOR TRAUMATIC PNEUMOTHORAX -MULTIPLE FRACTURE REPAIRS Review of Systems Constitutional: see HPI Focused Exam Height, Weight, BMI Height: 6'1.00" Weight: 211lbs. 0.5oz. 95.716839ol; 28.59 BMI Method:Stated Exam Exam Patient acknowledged, consented, and participated in this virtual visit which was conducted using real time audio/video Vital Signs Date Time Temp Pulse Resp B/P (MAP) Pulse Ox O2 Delivery O2 Flow Rate FiO2 12/06/21 09:00 71 9 132/84 90 Room Air 12/06/21 08:45 85 16 143/95 94 Room Air 12/06/21 08:31 37.0 69 94 12/06/21 08:30 70 12 128/76 91 Room Air 12/06/21 08:15 77 15 125/77 Room Air 12/06/21 08:10 37.0 69 16 121/79 94 Room Air 12/06/21 08:00 70 9 121/79 93 Room Air 12/06/21 07:53 92 Room Air 12/06/21 07:50 77 12/06/21 07:45 137 10 129/82 92 Room Air 12/06/21 07:38 155 12/06/21 07:35 130 14 92/77 92 Nasal Cannula 2.00 12/06/21 06:33 131 18 120/80 95 Nasal Cannula 2.00 12/06/21 06:01 126 18 115/82 93 Nasal Cannula 2.00 12/06/21 05:38 155 18 119/56 (77) 95 Nasal Cannula 2.00 12/06/21 05:36 133 16 119/84 93 Nasal Cannula 2.00 12/06/21 05:17 99 Room Air Height & Weight Height: 6'1.00" Weight: 211lbs. 0.5oz. 95.202916fi; 28.59 BMI Method:Stated General Appearance: WD/WN, Anxious, Mild Distress HEENT: PERRL/EOMI, Pharynx Normal, Moist Mucous Membranes Neck: Full Range of Motion, Normal Inspection Respiratory: Lungs Clear, Normal Breath Sounds, No Accessory Muscle Use, No Respiratory Distress Cardiovascular: Normal Peripheral Pulses, Irregularly Irregular, Tachycardia (140 +-10) Capillary Refill: Less Than 3 Seconds Extremity: Normal Capillary Refill, Pedal Edema (1+) Neurologic/Psychiatric: Alert, Oriented x3, Other (Left-sided baseline motor deficit and sensory deficit; upper extremity more than left lower extremity) Skin: Warm/Dry, Ecchymosis Results Lab Laboratory Tests 12/06/21 05:16 Assessment/Plan Assessment/Plan TIMO VALLE MD December 06, 2021 10:01
--- NOTE | 2021-12-06 10:30 | Discharge Inst-Simple/Standard ---
Discharge Inst-Standard Patient Instructions/Follow Up Plan of Care/Instructions/FU: Please continue to take your medications as written. Please follow up with your primary care doctor to follow up this hospital stay. Activity as Tolerated: Yes Discharge Diet: Cardiac Diet Return to The Hospital For: Chest pain, shortness of breath, fever, weakness, if you feel you are getting worse. ANUSHA FLORES MD December 06, 2021 10:30
[2021-12-06] MEDS ORDERED: SACUBITRIL/VALSARTAN 24/26 MG (ENTRESTO) TABLET PO SCH (21:00)
[2021-12-07] MEDS ORDERED: FOLIC ACID 1 MG TAB PO SCH (09:00)
[2021-12-07] MEDS ORDERED: ASPIRIN 81 MG CHEW (CHILDREN'S ASA) PO SCH (09:00)
== END 2021-12-06 12:00 | disposition home or self-care (01) ==
LOC: EDUNIT# 05:07 → ER 05:09 → ICU 05:35 → INTOOBSV 05:35 → EDLOC 05:35
PROVIDERS: ADMIT Internal Medicine; ATTEND Internal Medicine
DX: I48.0 Paroxysmal atrial fibrillation (principal); R07.9 Chest pain, unspecified; F17.210 Nicotine dependence, cigarettes, uncomplicated; F10.229 Alcohol dependence with intoxication, unspecified; Y90.8 Blood alcohol level of 240 mg/100 ml or more; I42.6 Alcoholic cardiomyopathy; I11.0 Hypertensive heart disease with heart failure; I50.22 Chronic systolic (congestive) heart failure; E78.5 Hyperlipidemia, unspecified; I25.10 Atherosclerotic heart disease of native coronary artery without angina pectoris; R77.8 Other specified abnormalities of plasma proteins; K21.9 Gastro-esophageal reflux disease without esophagitis; I71.2 Thoracic aortic aneurysm, without rupture; F03.90 Unspecified dementia, unspecified severity, without behavioral disturbance, psychotic disturbance, mood disturbance, and anxiety; Z91.19 Patient's noncompliance with other medical treatment and regimen; Z88.5 Allergy status to narcotic agent; Z88.0 Allergy status to penicillin; Z79.01 Long term (current) use of anticoagulants; Z79.82 Long term (current) use of aspirin
CPT/HCPCS: 71045; 80053; 83735; 83874; 83880; 84484; 85025; 85610; 85730; 87081; 93005; 93041; G0480; 36415; 80320; G0378